=== PATIENT | male | born 1950 | race Caucasian/White ===

== ENCOUNTER 2024-05-15 19:16 | Emergency (ER) | payer MEDICARE, SELFPAY ==
[2024-05-15 19:21] VITALS: BP 118/81; PULSE 93; RESP 18; TEMP 35.8; O2SAT 97; BMI 26.6
--- NOTE | 2024-05-15 21:04 | ED_ITS ---
HPI - Wound/Laceration General Time Seen by Provider: 21:04 Date Seen: 05/15/24 Chief Complaint: Laceration/Wound Stated Complaint: Cut on Fri, still bleeding Time Seen by Provider: 05/15/24 19:23 Source: patient and RN notes reviewed Mode of arrival: ambulatory Limitations: no limitations History of Present Illness HPI narrative: This 73-year-old male is coming in accompanied by his daughter with concern of bleeding from a wound on his left hand. These injuries happened on Friday, still continue to bleed. Patient is anticoagulated with Coumadin. He is on a c hronic dobutamine pump as a last effort to keep his heart function in per his daughter. He resides with her, has in-house nursing almost daily. They are unsure of his last tetanus. He was worried that the wound in his left hand might be getting infected, they deny any fever. His daughter does not feel it is infected. It just continues to keep oozing. He came with bandages, due to the volume in the acuity in the ER, the bandages were still in place, he had not even remotely come close to bleeding through these at all. His daughter did use bacitracin on the wounds. He does bruise easily, we did review that with aging we lose college in and then with being on blood thinners, can make bruising even more susceptible. The event happened yesterday, fell in the bathroom. He hit a board and a board landed on his hand. Related Data Home Medications ?Medication ?Instructions ?Recorded ?Confirmed albuterol 90 mcg/actuation aerosol 1 - 2 mcg inhalation .every 4-6 05/11/24 05/11/24 inhaler hrs PRN ondansetron 4 mg disintegrating mg PO DAILY PRN 05/11/24 05/11/24 tablet Allergies Allergy/AdvReac Type Severity Reaction Status Date / Time codeine Allergy Severe dizzniness/ Verified 05/11/24 15:26 nausea Review of Systems Narrative: As per HPI. PFSH PFS Surgical History Status post appendectomy ?Z90.49 - Acquired absence of other specified parts of digestive tract (ICD- 10) Status post lumbar laminectomy ?Z98.890 - Other specified postprocedural states (ICD-10) Status post coronary artery stent placement ?Z95.5 - Presence of coronary angioplasty implant and graft (ICD-10) Family History Mother Breast cancer Father Colon cancer Social History Narrative: 2 children Retired Former smoker What is your current living situation?: I presently have a place to live Problems where you live: no known problems In the past 12 months, utilities in danger of being shut off: no In past 12 months, lack of transportation kept you from medical appts, meetings, work, or getting things needed for daily living: no In the past 12 mos, have been you worried that your food would run out before you had money to buy more?: never true In the past 12 mos, the food you bought just didn't last and you didn't have money to buy more?: never true How often does anyone, including family, friends and others, physically hurt you : never How often does anyone, including family, friends and others, insult or talk down to you: never How often does anyone, including family, friends and others, threaten you with harm: never How often does anyone, including family, friends and others, scream or curse at you: never Exam Const: Vital Signs, click to edit/add: Vital Signs - 24 hr 05/15/24 19:21 Temperature 96.5 F L Pulse Rate [Left P ulse Oximeter] 93 Respiratory Rate 18 Blood Pressure [Ri ght Upper Arm] 118/81 Pulse Oximetry 97 Oxygen Delivery Me thod Room Air Patient has a dobutamine pump going, looks to have a PICC line in his right upper arm. He is alert, interactive, no apparent stress. He had 3:00 a.m. type wrap overlying nonstick pads and bacitracin over the wounds. On his mid dorsal forearm, there is an area of bruising in few superficial places where he has completely lost the epidermis. The subcutaneous tissue is intact, there is no drainage, no swelling, no warmth. His left hand along the interdigital web space between the thumb and the 2nd finger on the dorsum has a flap with some dark blood that appears to be coagulated along the periphery of this wound. The wound is not warm but there is bruising around it. When I removed the bandages from both of these sites, there was just a little small amount of blood on both of on, there was no concerning level of bleeding. His skin is very thin, we reviewed that attempting to so the 1 in his hand would be problematic and likely to just ripped the skin and cause further bleeding. I would recommend Tegaderm and then some compression over both of these. He does have nursing staff coming in that can watch these wounds. Documenting provider has reviewed patient's vital signs: yes Course Course ED Course: Patient has no recent tetanus that our nursing staff could fine, patient opted to have this updated which we will order for him. I do not see any level of bleeding that I am concerned about, bandaging really is not showing any concerning amount of bleeding. He may lose from these wounds conceivably for days, even up to a week to 2 weeks. As long as they are not copiously or actively bleeding, believe using Tegaderm and some gentle bandaging over the top of that should be sufficient. Would not recommend attempting any suturing, the forearm actually has loss of the superficial skin and there is nothing to suture. The skin tear in his left hand is very likely to just be friable and is certainly well out of limits of recommendations for suturing due to a increased risk of infection. The wound itself does not appear to be infected and would favor ongoing observation, seek re-evaluation if there is concerns. Will have nursing staff put Tegaderm and than some light pressure dressings over these. Reevaluation(s) Time of Reevaluation #1: 21:36 Reevaluation #1: Patient is re-evaluated, has some gauze and 3:00 a.m. wrap overlying the Tegaderm. Daughter is aware that if changing bandages, to peel towards the direction of the flap so as to not lift the flap up. We discussed wound care, tetanus is updated. Will discharge them to home. Vital Signs Vital signs: Initial Vital Signs Temperature 96.5 F L 05/15/24 19:21 Temperature Source Temporal Artery Scan 05/15/24 19:21 Pulse Rate 93 05/15/24 19:21 Pulse Rhythm Regular 05/15/24 19:21 Respiratory Rate 18 05/15/24 19:21 Blood Pressure 118/81 05/15/24 19:21 Blood Pressure Mean 93 05/15/24 19:21 Blood Pressure Position Sitting 05/15/24 19:21 Pulse Oximetry 97 05/15/24 19:21 Oxygen Delivery Method Room Air 05/15/24 19:21 Vital Signs Temperature 96.5 F L 05/15/24 19:21 Pulse Rate 93 05/15/24 19:21 Respiratory Rate 18 05/15/24 19:21 Blood Pressure 118/81 05/15/24 19:21 Pulse Oximetry 97 05/15/24 19:21 Oxygen Delivery Method Room Air 05/15/24 19:21 Temperature 96.5 F L 05/15/24 19:21 Pulse Rate 93 05/15/24 19:21 Respiratory Rate 18 05/15/24 19:21 Blood Pressure 118/81 05/15/24 19:21 Pulse Oximetry 97 05/15/24 19:21 Oxygen Delivery Method Room Air 05/15/24 19:21 Discharge Plan Discharge Clinical Impression: Skin tear of left hand without complication, Avulsion of skin of left forearm Patient Disposition: Home, Self-Care Condition: Stable Instructions: Skin Avulsion (ED), Skin Tear (ED) Additional Instructions: Can take down the top layer of dressing but would recommend leaving the Tegaderm in place for up to 7 days if the wounds are looking okay underneath. Can be changed as needed before than but would be careful to not pull the Tegaderm off and disrupt the wounds causing bleeding again. Watch for infection, if there are concerns, please seek re-evaluation. Activity Level: No Restrictions Discharge Diet: Regular Prescriptions: No Action ondansetron 4 mg tablet,disintegrating PO DAILY PRN albuterol 90 mcg/actuation aerosol 1 - 2 mcg inhalation .every 4-6 hrs PRN Follow Up/Referrals: Provider,Not a Local [Non-Staff] - Stand Alone Forms: [facility] Info Instructions
--- OUTSIDE RECORDS SUMMARY | 2024-05-15 21:29 | XMS_ITS | Clinical Summary ---
Author Organization [facility] Address [address] [place] [id number] Care Team Providers Care Computer Numerical Control Programmer Name Role Phone Fausto Mead Ion Jones Unavailable Sadi Paul MD Primary Care Provider Allergies Active Allergy Reactions Criticality Noted Date Comments Codeine Nausea Only,Dizziness Low Medications CPAPIndications:TIARRA (obstructive sleep apnea),(HFpEF) heart failure with preserved ejection fraction (HC),Tobacco abuse CPAP for home use at pressure of 12. Heated humidifier x1, Humidifier chamber x1, Heated tubing x1, Full face mask with cushion x1, Headgear x1, Filters: Disposable x1 pack, Reusable x1pk, Length of Need: 99 months, Frequency of use: Daily Refills: 11. 1 unit 11 2018 Active meclizine (ANTIVERT) 25 mg tabletIndications:Sammy gn paroxysmal positional vertigo, unspecified laterality Take 1 Tablet (25 mg) by mouth 3 times daily if needed for Vertigo. 30 Tablet 1 2021 Active acetaminophen (TYLENOL EXTRA STRGTH) 500 mg tabletIndications:Pain Take 1,000 mg by mouth once daily in the evening. Max acetaminophen dose: 4000mg in 24 hrs. 0 2021 Active methocarbamoL (ROBAXIN) 500 mg tabletIndications:Naus ea and vomiting, unspecified vomiting type,DAVID (acute kidney injury) Take 1 Tablet (500 mg) by mouth every 6 hours if needed for Muscle Spasm PO 1st choice (.). 20 Tablet 2023 Active Additional Information Patient not taking.Informant: Patient's Recall, Reported on 05/03/2024 magnesium oxide 250 mg magnesium tabletIndications:Musc le cramps Take 1 Tablet (250 mg) by mouth once daily. 30 Tablet 11 2023 Active Additional Information Patient not taking.Informant: Patient's Recall, Reported on 05/03/2024 triamcinolone (ARISTOCORT; KENALOG) 0.1 % creamIndications:pruri tus of skin Apply 1 Application topically to affected area(s) 3 times daily if needed (itchy rash). Active DOBUTamine (DOBUTREX) 250 mg/250 mL (1 mg/mL) infusionIndications:Ac myriam on chronic systolic and diastolic heart failure, NYHA class 3 (HC) Inject 159 mcg/min intravenous continuous. 250 mL 2024 Active pantoprazole (PROTONIX) 40 mg delayed-release tabletIndications:Acut e GI bleeding Take 1 Tablet (40 mg) by mouth two times daily before meals. 90 Tablet 025 2:46 PM DATA WAREHOUSE MANAGER 2024 Active pramipexole (MIRAPEX) 0.25 mg tabletIndications:Rest less leg Take one-half Tablet (0.125 mg) by mouth at bedtime. 30 Tablet 025 2:46 PM DATA WAREHOUSE MANAGER 2024 Active sennosides (SENNA) 8.6 mg tabletIndications:Othe r constipation Take 1 to 2 Tablets (8.6-17.2 mg) by mouth two times daily. 60 Tablet 025 2:46 PM DATA WAREHOUSE MANAGER 2024 Active warfarin (COUMADIN) 1 mg tabletIndications:Atri al fibrillation with rapid ventricular response (HC) Take 1 Tablet (1 mg) by mouth once daily. Take 1mg daily. INR check on Sunday 04/23. Further dosing instructions pending INR value at that time. 30 Tablet 025 2:46 PM DATA WAREHOUSE MANAGER 2024 Active midodrine (PROAMATINE) 2.5 mg tabletIndications:Hypo tension, unspecified hypotension type Take 1 tablet (2.5mg) by mouth three times daily (at 8AM, 12PM, and 4PM) 90 Tablet 025 2:46 PM DATA WAREHOUSE MANAGER 2024 Active amiodarone (CORDARONE) 200 mg tabletIndications:Atri al fibrillation with rapid ventricular response (HC) Take 1 tablet (200 mg) by mouth twice daily. Then on 05/02/24 decrease to 200 mg once daily 90 Tablet 1 025 2:46 PM DATA WAREHOUSE MANAGER 2024 Active torsemide (DEMADEX) 20 mg tabletIndications:Acut e on chronic systolic and diastolic heart failure, NYHA class 3 (HC) Take one tablet by mouth as needed for weight gain of 3 lb in 1 day or 5 lb in 1 week 30 Tablet 2 025 5:30 PM DATA WAREHOUSE MANAGER 2024 Active atorvastatin (LIPITOR) 40 mg tabletIndications:Pure hypercholesterolemia Take 1 Tablet (40 mg) by mouth once daily. 30 Tablet 3 025 5:30 PM DATA WAREHOUSE MANAGER 2024 Active WalkerIndications:CHF (congestive heart failure), NYHA class IV, acute on chronic, combined (HC) Walker with wheels,seat,sanders d brakes,and basket for home use. 1 Each 2024 Active commodeIndications:CHF (congestive heart failure), NYHA class IV, acute on chronic, combined (HC) As directed. Commode. For home use. 1 Each 2024 Active albuterol HFA (PRO-AIR; VENTOLIN; PROVENTIL) 90 mcg/actuation inhalerIndications:Cou gh, unspecified type Inhale 2 Puffs by mouth every 6 hours if needed for Wheezing 1st choice (cough). 34 g 3 2024 Active ondansetron (ZOFRAN ODT) 4 mg disintegrating tabletIndications:Brinda perrin Place 1 Tablet (4 mg) on the tongue every 8 hours if needed for Nausea/Vomiting . 10 Tablet 2024 Active aspirin chewable 81 mg chewable tablet Chew 1 Tablet (81 mg) by mouth once daily with a meal. 04/21 Discontinued( *IP Discontinued) allopurinoL (ZYLOPRIM) 100 mg tabletIndications:E Tailer rika gout of foot, unspecified cause, unspecified laterality TAKE 2 TABLETS BY MOUTH ONCE DAILY 180 Tablet 3 04/21 Discontinued( *IP Discontinued) albuterol HFA (PRO-AIR; VENTOLIN; PROVENTIL) 90 mcg/actuation inhalerIndications:Tob acco abuse,Cough [The details of the medication are not available because there are pending changes by a home health clinician.] 34 g 3 04/26 Discontinued( Reorder (E-cancel not sent)) clopidogreL (PLAVIX) 75 mg tabletIndications:Daniele nary artery disease involving [place] coronary artery of [place] heart without angina pectoris TAKE 1 TABLET BY MOUTH ONCE DAILY 90 Tablet 3 04/21 Discontinued( *IP Discontinued) atorvastatin (LIPITOR) 40 mg tabletIndications:Pure hypercholesterolemia TAKE 1 TABLET BY MOUTH ONCE DAILY 90 Tablet 3 04/21 Discontinued metFORMIN (GLUCOPHAGE XR) 500 mg Extended-Release tabletIndications:Type 2 diabetes mellitus without complication, without long-term current use of insulin (HC) Take 2 Tablets (1,000 mg) by mouth once daily with a meal. 180 Tablet 1 04/21 Discontinued( *IP Discontinued) metoprolol succinate (TOPROL XL) 25 mg Sustained-Release tabletIndications:Acut e systolic heart failure (HC) Take 0.5 Tablets (12.5 mg) by mouth once daily. 45 Tablet 3 04/21 Discontinued( *IP Discontinued) potassium chloride (KLOR-CON M20) 20 mEq extended-release tablet (part/cryst)Indication s:Hypokalemia Take 1 Tablet (20 mEq) by mouth two times daily with meals. 180 Tablet 3 04/21 Discontinued( *IP Discontinued) torsemide (DEMADEX) 20 mg tabletIndications:Acut e on chronic systolic congestive heart failure (HC) Take 2 Tablets (40 mg) by mouth every 12 hours. Hold for now and resume on 01/18. 04/21 Discontinued( *IP Discontinued) metOLazone (ZAROXOLYN) 2.5 mg tabletIndications:Ga estive heart failure, unspecified HF chronicity, unspecified heart failure type (HC) Take 1 Tablet (2.5 mg) by mouth every Friday, Friday and Friday. Hold for now and resume on 01/18 Discontinued( *IP Discontinued) isosorbide mononitrate (IMDUR) 30 mg extended release tablet 24 HourIndications:Ischem ic cardiomyopathy Take 1 Tablet (30 mg) by mouth once daily. 90 Tablet 04/18 Discontinued amiodarone (CORDARONE) 200 mg tabletIndications:Atri al fibrillation with rapid ventricular response (HC) Take 1 Tablet (200 mg) by mouth three times daily. 05/02/2024: Reduce to 1 tablet (200 mg) by mouth once daily. 90 Tablet 2 04/21 Discontinued( *IP Discontinued) isosorbide mononitrate (IMDUR) 30 mg extended release tablet 24 HourIndications:Ischem ic cardiomyopathy TAKE 1 TABLET BY MOUTH ONCE DAILY 100 Tablet 04/21 Discontinued( *IP Discontinued) allopurinoL (ZYLOPRIM) 100 mg tabletIndications:Gout due to renal impairment, unspecified chronicity, unspecified site [The details of the medication are not available because there are pending changes by a home health clinician.] 60 Tablet 025 5:30 PM DATA WAREHOUSE MANAGER 04/26 Discontinued( *Allergic/Adv erse Rxn/Side Effects) amiodarone (CORDARONE) 200 mg tabletIndications:Atri al fibrillation with rapid ventricular response (HC) Take 1 Tablet (200 mg) by mouth two times daily for 10 days. 20 Tablet 04/21 Discontinued( *IP Discontinued) amiodarone (CORDARONE) 200 mg tabletIndications:Atri al fibrillation with rapid ventricular response (HC) Take 1 Tablet (200 mg) by mouth once daily. Start after completing your twice daily dose 30 Tablet 04/21 Discontinued( *IP Discontinued) atorvastatin (LIPITOR) 40 mg tabletIndications:Pure hypercholesterolemia Take 1 Tablet (40 mg) by mouth once daily. 30 Tablet 3 04/21 Discontinued ondansetron (ZOFRAN ODT) 4 mg disintegrating tabletIndications:Brinda perrin Place 1 Tablet (4 mg) on the tongue every 8 hours if needed for Nausea/Vomiting . 10 Tablet 04/27 Discontinued( Reorder (E-cancel not sent)) Hospital, Clinic, or Other Facility Administered Medication Ordered Dose Route Frequency Start Date End Date Status cyanocobalamin (VITAMIN B12) 1,000 mcg/mL injection 1,000 mcgIndications:B12 deficiency 1000 mcg IM Q 4 WEEKS (28 days) 12/22/2023 11/21/2024 Active Active Problems Problem Noted Date Diagnosed Date Congestive heart failure, un specified HF chronicity, unspecified heart failure type 04/21/2024 Acute renal failure superimp osed on stage 3b chronic kidney disease 04/07/2024 Atrial fibrillation with rapid ventricular respo nse 04/07/2024 Acute GI bleeding 04/07/2024 Lactic acidosis 04/07/2024 Cardiogenic shock 04/07/2024 Acute on chronic systolic an d diastolic heart failure, NYHA class 3 04/07/2024 Chronic heart failure with r educed ejection fraction (HFrEF, <= 40%) 01/16/2024 Chronic kidney disease, stage 3b 06/19/2023 Type 2 diabetes mellitus wit hout complication, without long-term current use of insulin 04/17/2023 AGE (acute gastroenteritis) 04/17/2023 Hypokalemia 04/17/2023 DAVID (acute kidney injury) 04/17/2023 Anesthesia complication 11/05/2022 Overview (11/05/2022): Needs higher doses of anesthesia and wakes up slowly sometimes with nausea Regional enteritis of large intestine 11/05/2022 Ischemic cardiomyopathy 11/05/2022 Colon cancer screening 09/09/2022 Hypoxia 03/01/2021 Influenza A 02/25/2021 Pulmonary emphysema 02/12/2021 Ischemic cardiomyopathy 12/07/2020 Pure hypercholesterolemia 12/07/2020 Acute systolic congestive heart failure 12/03/19 Acute systolic heart failure 11/25/2020 TIARRA (obstructive sleep apnea) 07/03/2017 Unspecified essential hypertension 05/26/2013 Other and unspecified hyperlipidemia 05/26/2013 Coronary atherosclerosis of [place] coronary arianne ry 05/26/2013 Other B-complex deficiencies 02/11/2013 Regional enteritis of large intestine 10/22/2011 Type II or unspecified type diabetes mellitus without mention of complication, uncontrolled 02/14/2011 Acute on chronic systolic heart failure Resolved Problems Problem Noted Date Diagnosed Date Resolved Date Cellulitis and abscess of unspecified site 03/13/2013 03/17/2017 Coronary atherosclerosis of unspecified type of vessel, [place] or graft 02/11/2013 03/17/2017 Chest pain, unspecified 01/19/201303/03 Acute bronchitis 06/01/2012 03/17/2017 Acute conjunctivitis, unspecified 05/01/2012 03/17/2017 Other and unspecified noninf ectious gastroenteritis and colitis(558.9) 08/28/201103/17 Leukocytosis, unspecified 02/14/2011 Blood in stool 02/14/2011 03/17/2017 Acute gastritis without mention of hemorrhage 02/12/2003/17/2017 Encounters Date Type Department Care Team Description 05/15/19 Travel 05/15/19 Home Care Visit [facility] [address] [place] [phone] Monisha Yo, PARIKH CARE COORDINATION 05/14/19 4:00 PM CDT Home Care Visit [facility] [address] [place] [phone] Joceline Edouard PHYSICIANS ASSISTANT - HOME VISIT 05/14/19 1:00 PM CDT Home Care Visit [facility] [address] [place] [phone] Valentina Riley, RN SN - LONG VISIT (>90 MINUTES) 05/14/19 Telephone [facility] [address] [place] [phone] Valentina Riley, stove installer 05/12/19 10:30 AM CDT Home Care Visit [facility] [address] [place] [phone] Nicolas Sanz, PT PT - HOME VISIT 05/12/19 25 Home Care Visit [facility] [address] [place] [phone] Edis Camargo, PROJECT ENGINEER CHEMICALS CARE COORDINATION 05/12/19 Travel 05/11/19 3:00 PM CDT Home Care Visit [facility] [address] [place] [phone] Joceline Edouard PHYSICIANS ASSISTANT - HOME VISIT 05/11/19 11:00 AM CDT Home Care Visit [facility] [address] [place] [phone] Valentina Riley, RN SN - HOME VISIT 05/10/19 Nurse Triage [facility] [address] [place] [phone] Shana Lozano, DO Home Care; Diarrhea 05/08/19 4:00 PM DATA WAREHOUSE MANAGER Home Care Visit [facility] [address] [place] [phone] Joceline Edouard PHYSICIANS ASSISTANT - HOME VISIT 05/08/19 10:30 AM DATA WAREHOUSE MANAGER Home Care Visit [facility] [address] [place] [phone] Nicolas Sanz, PT PT - HOME VISIT 05/07/19 1:30 PM DATA WAREHOUSE MANAGER Home Care Visit [facility] [address] [place] [phone] Valentina Riley, RN SN - LONG VISIT (>90 MINUTES) 05/07/19 Telephone [facility] [address] [phone] Valentina Riley, stove installer 05/05/19 1:30 PM DATA WAREHOUSE MANAGER Home Care Visit [facility] [address] [place] [phone] Tiffany Fang, OT OT - HOME VISIT 05/05/19 10:30 AM DATA WAREHOUSE MANAGER Home Care Visit [facility] [address] [place] [phone] Nicolas Sanz, PT PT - HOME VISIT 05/05/19 9:30 AM DATA WAREHOUSE MANAGER Home Care Visit [facility] [address] [place] [phone] Joceline Edouard PHYSICIANS ASSISTANT - HOME VISIT 05/05/19 Travel 05/04/19 1:00 PM DATA WAREHOUSE MANAGER Home Care Visit [facility] [address] [place] [phone] Valentina Riley, RN SN - LONG VISIT (>90 MINUTES) 05/04/19 8:30 AM DATA WAREHOUSE MANAGER Office Visit [facility] [address] [facility] [address] [place] [address] Lauro Kendall MD Follow Up (POST HOSPITAL FOLLOW UP. LABS DONE PRIOR AT HOME HEALTH CARE./PT states feeling OK/no cardiac symptoms today /Establish care ) 05/04/19 Travel 04/30/19 2:30 PM DATA WAREHOUSE MANAGER Home Care Visit [facility] [address] [place] [phone] Nicolas Sanz, PT PT - HOME VISIT 04/30/[address] [address] Shana Lozano, DO Weight (Weight gain) 04/30/19 Travel 04/29/19 12:30 PM DATA WAREHOUSE MANAGER Home Care Visit [facility] [address] [place] [phone] Valentina Riley, AMELIA SN - LONG VISIT (>90 MINUTES) 04/29/19 25 Home Care Visit [facility] [address] [place] [phone] Nicolas Sanz, PT CARE COORDINATION 04/28/19 3:00 PM DATA WAREHOUSE MANAGER Home Care Visit [facility] [address] [place] [phone] Nicolas Sanz, PT PT - INITIAL ASSESSMENT 04/28/19 9:00 AM DATA WAREHOUSE MANAGER Home Care Visit [facility] [address] [place] [phone] Anabella Rico, FILAMENT CUTTER FILAMENT CUTTER - HOME VISIT 02/26/20 25 Telephone [facility] [address] [place] [address] Shana Lozano, DO Questions (Verbal orders) 04/28/19 Travel 04/27/19 1:00 PM DATA WAREHOUSE MANAGER Home Care Visit [facility] [address] [place] [phone] Tiffany Fang OT OT - INITIAL ASSESSMENT 04/27/19 11:30 AM DATA WAREHOUSE MANAGER Anticoagulation (warfarin) [facility] [address] [place] [address] Anticoagulation 04/27/19 9:40 AM DATA WAREHOUSE MANAGER Office Visit [facility] [address] [place] [address] Shana Lozano, DO Hospital F/U (04/06/2024-04/21/2024 Afib with RVR) 04/27/19 Travel 04/26/19 Telephone [place] [address] [place] [address] Ignacio Willett MD Care Coordination (EP called and spoke with patient who reports that he moved in with his daughter which is 100 [address] from [facility]. EP confirmed with patient that he would be discharged from CR at [facility]. Pt confirmed he would check out places near for CR as needed. ) 04/26/19 Orders Only [facility] [address] [place] [address] Shana Lozano DO <No scans attached> 04/26/19 Orders Only [facility] [address] [place] [address] Shana Lozano DO <No scans attached> 04/25/19 1:00 PM DATA WAREHOUSE MANAGER Home Care Visit [facility] [address] [place] [phone] Staci Lara RN SN - HOME VISIT 04/23/19 1:45 PM DATA WAREHOUSE MANAGER Home Care Visit [facility] [address] [place] [phone] Joceline Edouard PHYSICIANS ASSISTANT - HOME VISIT 04/23/19 25 1:00 PM DATA WAREHOUSE MANAGER Home Care Visit [facility] [address] [place] [phone] Valentina Riley, AMELIA SN - LONG VISIT (>90 MINUTES) 04/23/19 25 9:00 AM DATA WAREHOUSE MANAGER Anticoagulation (warfarin) [facility] [address] [place] [address] Anticoagulation 04/23/19 25 Orders Only [facility] [address] [place] [address] Shana Lozano, Lab 04/23/19 25 Orders Only [facility] [address] [place] [phone] Shana Lozano DO Lab (Home care) 04/23/19 25 Orders Only [facility] [address] [facility] [address] [place] [phone] Abi Valdovinos, RUNNER OUT <No scans attached> 04/23/19 25 Travel 04/22/19 25 1:00 PM DATA WAREHOUSE MANAGER Home Care Visit [facility] [address] [place] [phone] Valentina Riley RN SN IV - START OF CARE 04/22/19 25 Plan of Care Documentation [facility] [address] [place] [phone] 04/22/19 25 Telephone [facility] [address] [place] [phone] Valentina Riley RN Home Care 04/22/19 25 Telephone [facility] [address] [place], [place] [phone] Shana Lozano, Outside Order (WALKER / PORTABLE URINAL ) 04/22/19 25 Home Care Visit [facility] [address] [place] [phone] Valentina Riley, AMELIA CARE COORDINATION 04/22/19 25 Telephone [facility] [address] [place] [address] Ignacio Willett MD Care Coordination (EP attempted phone contact with patient to touch base regarding cardiac rehab plan. No answer and VM is full. EP to follow-up as needed. ) 04/21/19 25 Telephone [facility] [address] [place] [address] Shana Lozano, DO Anticoagulation 04/19/19 25 Telephone [facility] [address] [place] [address] Shana Lozano, DO Questions (Home care orders ) 04/17/19 25 Refill [facility] [address] [place] [address] Ignacio Willett MD Refill Request (Isosorbide Mononitrate) 04/12/19 25 10:26 AM DATA WAREHOUSE MANAGER Anesthesia Event [facility] [address] [place] [address] Gerardo Garza MD Schlatter, Charles Patrick, [employer] P[employer] 04/08/19 25 12:21 PM DATA WAREHOUSE MANAGER Anesthesia Event [facility] [address] [place] [address] Leonardo Campbell MD Reiter, Kyle, [employer] 04/08/19 25 11:26 AM DATA WAREHOUSE MANAGER - 04/08/19 25 12:12 PM DATA WAREHOUSE MANAGER Surgery [facility] [address] [place] [address] Chepe Francis MD ESOPHAGOGASTRODUODENOSCOPY WITH GASTRIC BIOPSY 04/06/19 25 11:21 PM DATA WAREHOUSE MANAGER - 04/21/19 25 5:55 PM DATA WAREHOUSE MANAGER Hospital Encounter [facility] [address] [place] [address] Associates, [facility] General [facility], [facility] Parmjit Berrios MD Mrkvicka, MD Ruel Garcia, MD Dmitriy Salinas, Rebecca Romero MD Acute on chronic systolic and diastolic heart failure, NYHA class 3 (HC) (Primary Dx); Cardiogenic shock (HC); Atrial fibrillation with rapid ventricular response (HC); Cardiovascular symptoms; Chronic heart failure with reduced ejection fraction (HFrEF, <= 40%) (HC); Gout due to renal impairment, unspecified chronicity, unspecified site; Acute systolic congestive heart failure (HC); Acute GI bleeding; Restless leg; Other constipation; Hypotension, unspecified hypotension type; Pure hypercholesterolemia Discharge Disposition: Home Health 04/06/19 2:41 PM DATA WAREHOUSE MANAGER - 04/06/19 10:17 PM DATA WAREHOUSE MANAGER Emergency [address] [address] Charly Monroe MD Binder, Jacob A, MD Atrial fibrillation, unspecified type (HC) (Primary Dx); Hypotension, unspecified hypotension type; Lightheadedness; DAVID (acute kidney injury) Discharge Disposition: Short Term/PPS Hosp 04/06/19 1:56 PM DATA WAREHOUSE MANAGER - 04/06/19 2:40 PM DATA WAREHOUSE MANAGER Hospital Encounter [address] [address] Ignacio Willett MD 04/06/19 Telephone [facility] [address] [place] [address] Lukasz Bright MD 04/06/19 25 Travel 04/05/19 Telephone [facility] [address] [place] [address] Ignacio Willett MD Atrial Fibrillation 03/30/19 25 1:47 PM DATA WAREHOUSE MANAGER - 03/30/19 25 11:59 PM DATA WAREHOUSE MANAGER Hospital Encounter [address] [address] Ignacio Willett MD 03/30/19 25 Travel 03/24/19 25 1:00 PM DATA WAREHOUSE MANAGER - 03/24/19 25 11:59 PM DATA WAREHOUSE MANAGER Hospital Encounter [address] [address] Ignacio Willett MD 03/24/19 25 Travel 03/22/19 25 1:00 PM DATA WAREHOUSE MANAGER - 03/22/19 25 11:59 PM DATA WAREHOUSE MANAGER Hospital Encounter [address] [address] Ignacio Willett MD 03/22/19 25 Travel 03/15/19 25 12:50 PM DATA WAREHOUSE MANAGER - 03/15/19 25 11:59 PM DATA WAREHOUSE MANAGER Hospital Encounter [address] [address] Ignacio Willett MD 03/15/19 25 Travel 03/10/19 25 12:50 PM DATA WAREHOUSE MANAGER - 03/10/19 25 11:59 PM DATA WAREHOUSE MANAGER Hospital Encounter [address] [address] Ignacio Willett MD 03/10/19 25 Travel 03/08/19 25 1:00 PM DATA WAREHOUSE MANAGER - 03/08/19 25 11:59 PM DATA WAREHOUSE MANAGER Hospital Encounter [address] [address] Ignacio Willett MD 03/08/19 25 Travel 03/01/20 24 1:29 PM DATA WAREHOUSE MANAGER - 03/01/20 24 11:59 PM DATA WAREHOUSE MANAGER Hospital Encounter [address] [address] Ignacio Willett MD Ischemic cardiomyopathy; CAD, multiple vessel; Dyslipidemia; Congestive heart failure, unspecified HF chronicity, unspecified heart failure type (HC) 03/01/20 24 Orders Only [address] [address] Ignacio Willett MD <No scans attached> from Last 3 Months Immunizations Immunization Administration Dates Next Due COVID-19 VACCINE COMIRNATY (PFIZER-BIONTECH 30MCG/0.3ML) 12YO+ PFS 12/18/2023 COVID-19 VACCINE SPIKEVAX (M ODERNA 50MCG/0.5ML) 12YO+ PFS 01/27/2023 COVID-19 vaccine (Moderna 100mcg/0.5mL) PF, MDV 06/21/2020,05/24/2020 COVID-19 vaccine (Moderna 50mcg/0.5mL) 12YO+ BIVALENT PF, MDV 03/21/2022 COVID-19 vaccine (Moderna Brian sonu 50mcg/0.25mL) PF, MDV 06/06/2021,01/17/2021 Influenza RIV4 (Age 18+ Year s) PRESERV FREE 11/19/2021,12/06/2019 Influenza Virus, Unspecified 11/10/2017,11/02/19 13 Influenza, High-dose Inactivated 11/20/2023,01/02 Influenza, High-dose Quadriv alent Inactivated 12/24/2022 Influenza, IIV4 12/03/2018, 8,12/07/2015,2014,12/28/2013 Influenza, IIV4 (=>6mos) MDV 12/01/2018 Influenza, Inactivated AIIV4 (Age 65+ Years) Preserv Free 11/27/2020 Pneumococcal Poly,23-Valent (Pneumovax) 02/09/2018,02/04/2013 Pneumococcal conj 13-Valent (Prevnar 13) 08/05/2014 Zoster (Shingrix-RZV, recombinant) 04/09/2019, Zoster (Zostavax-ZVL, live) 05/01/2012 Family History Medical History Relation Name Comments Cancer-prostate Father Cancer-prostate Paternal Grandfather Relation Name Status Comments Father Mother Paternal Grandfather Social History Tobacco Use Types Packs/Day Years Used Date Smoking Tobacco: Some Days Cigarettes 1 40 Started: 07/26/1980; Last attempted to quit: 07/26/2020 Smokeless Tobacco: Never Tobacco Cessation:Ready to Q uit: Not Asked; Counseling Given: Not Answered Comments:2-3 cigsper day and then some days nothing Alcohol Use Standard Drinks/Week Comments Yes 0 (1 standard drink = 0.6 oz pur e alcohol) once a months 1drink PHQ-2 Answer Date Recorded PHQ-2 TOTAL SCORE 0 01/01/2022 Social Connections Answer Date Recorded Do you often feel lonely or isolated from those around you? 0 04/09/2024 Financial Resource Strain Answer Date R ecorded Difficulty of Paying Living Expenses 3 04/17/2023 Difficulty of Paying Living Expenses Not on file 04/17/2023 Food Insecurity Answer Date Recorded Do you worry your food will run out before you are able to buy more? 1 04/09/2024 Transportation Needs Answer Date Record ed Does lack of transportation keep you from medica l appointments? 1 04/09/2024 Does lack of transportation keep you from work, meetings or getting things that you need? 1 04/09/2024 Housing Stability Answer Date Recorded What is your housing situation today? 1 04/09/2024 Interpersonal Safety Answer Date Record ed Are you being hit, kicked, p ushed or yelled at (see row info)? No 04/09/2024 Interpersonal Safety Abuse 12 - 18 Not on file 04/09/2024 Interpersonal Safety Ambulatory Vulnerability No t on file 04/09/2024 Utilities Answer Date Recorded Do you have trouble paying f or utilities (for example, heat, electricity, water, phone)? 1 04/09/2024 Sex and Gender Information Value Date Recorded Sex Assigned at Not on file Legal Sex Male 5:26 PM DATA WAREHOUSE MANAGER Gender Identity Not on file Sexual Orientation Not on file Obstetrics History Last Filed Vital Signs Vital Sign Reading Time Taken Comments Blood Pressure 112/79 05/13/2024 12:46 PM CDT Pulse 65 05/13/2024 12:46 PM CDT Temperature 36.6 C (97.8 F) 05/13/2024 12:46 PM CDT Respiratory Rate 18 05/13/2024 12:46 PM CDT Oxygen Saturation 97% 05/13/2024 12:46 PM CDT Inhaled Oxygen Concentration - - Weight 76.7 kg (169 lb 3.2 oz) 05/13/2024 12:46 PM CDT Height 175.3 cm (5' 9) 05/03/2024 8:40 AM DATA WAREHOUSE MANAGER Body Mass Index 24.99 05/03/2024 8:40 AM DATA WAREHOUSE MANAGER Plan of Treatment Upcoming Encounters Date Type Department Care Team (Late st Contact Info) Description 05/17/2024 3:15 PM CDT Home Care Visit [facility] [address] [place] [phone] Joceline Edouard 05/18/2024 10:00 AM CDT Home Care Visit [facility] [address] [place] [phone] Edis Camargo, PROJECT ENGINEER [employer] [address] [place] [address] 05/18/2024 11:00 AM CDT Home Care Visit [facility] [address] [place] [phone] Valentina Riley, AMELIA 05/18/2024 4:00 PM CDT Home Care Visit [facility] [address] [place] [phone] FunmiMonisha porter Emy, PARIKH [address] [place] [address] 05/19/2024 10:30 AM CDT Home Care Visit [facility] [address] [place] [phone] Nicolas Sanz, PT [address] [place] [address] 05/20/2024 2:45 PM CDT Home Care Visit [facility] [address] [place] [phone] Joceline Edouard 05/21/2024 11:30 AM CDT Home Care Visit [facility] [address] [place] [phone] Valentina Riley RN 05/21/2024 1:15 PM CDT Home Care Visit [facility] [address] [place] [phone] Nicolas Sanz, PT [address] [place] [address] 05/24/2024 4:00 AM CDT Home Care Visit [facility] [address] [place] [phone] Valentina Riley, AMELIA 05/24/2024 2:30 PM CDT Home Care Visit [facility] [address] [place] [phone] Joceline Edouard 05/25/2024 5:00 AM CDT Home Care Visit [facility] [address] [place] [phone] AnnalisaAnselmo hernandezcurt, OT [address] [place] [address] 05/26/2024 3:00 AM CDT Home Care Visit [facility] [address] [place] [phone] Nicolas Sanz, PT [address] [place] [address] 05/27/2024 4:00 AM CDT Home Care Visit [address] [phone] Joceline Edouard 05/28/2024 4:00 AM CDT Home Care Visit [address] [phone] Valentina iRley, AMELIA 05/31/2024 4:00 AM CDT Home Care Visit [address] [phone] Valentina Riley, AMELIA 06/01/2024 4:00 AM CDT Home Care Visit [address] [phone] Jax Edouardin L 06/03/2024 4:00 AM CDT Home Care Visit [address] [phone] Jax Edouardin L 06/03/2024 8:35 AM CD[place] [address] [place] [address] 06/04/2024 4:00 AM CDT Home Care Visit [address] [phone] Valentina Riley, RN 06/07/2024 4:00 AM CDT Home Care Visit [facility] [address] [place] [phone] Valentina Riley, AMELIA 06/08/2024 4:00 AM CDT Home Care Visit [facility] [address] [place] [address] Jax Edouardin L 06/08/2024 8:30 AM CDT Office Visit [facility] [address] [facility] [address] [place] [address] Lauro Kendall MD [address] [facility] [address] [place] [address] 06/10/2024 4:00 AM CDT Home Care Visit [facility] [address] [place] [phone] Jax Edouardin L 06/11/2024 4:00 AM CDT Home Care Visit [facility] [address] [place] [phone] Valentina Riley, AMELIA 06/14/2024 1:00 PM CDT Home Care Visit [facility] [address] [place] [phone] Valentina Riley, RN 06/15/2024 4:00 AM CDT Home Care Visit [facility] [address] [place] [phone] Jax Edouardin L 06/16/2024 1:00 PM CDT Home Care Visit [facility] [address] [place] [phone] Valentina Riley, RN 06/17/2024 4:00 AM CDT Home Care Visit [facility] [address] [place] [phone] Silke, Krin L 06/18/2024 1:00 PM CDT Appointment [facility] [address] [place] [address] [place] [phone] Valentina Riley, RN Health Maintenance Due Date Last Done Comments Tdap 11/06/1962 Tetanus booster 1971 RSV vaccine for adults or (1 - Risk 60-74 years 1-dose series) 2011 Medicare Wellness for age 65+ 11/06/2016 Depression screening for age 12+ 01/03/2023 01/03/2022, 01/01/2022, 11/21/2021, Additional history exists COVID-19 vaccine series ( season) 2024 12/18/2023, 01/27/2023, 03/21/2022, Additional history exists Low Dose CT (for lung CA) ag e 50-80 08/06/2024 08/07/2023, 06/16/2022 BMI (ht and wt on same day) for age 18+ 05/03/2025 05/03/2024, 04/27/2024, 12/30/2023, Additional history exists Lipids for age 45-75 11/19/2028 11/20/2023, 12/25/2022, 11/19/2021, Additional history exists Colonoscopy through age 75 09/10/2032 09/10/2022, Pneumococcal series for age 50+ Completed 02/09/2018, 08/05/2014, 02/04/2013, Additional history exists Zoster (shingles) series for age 50+ Completed 04/09/2019, 01/11/2019, 05/01/2012 Hepatitis C screening for ag e 18-79 Completed 06/11/2022 Influenza Vaccine Completed 11/20/2023, , 11/27/2020, Additional history exists AAA screening age 65-74 Completed 01/16/20 24, 12/20/2021, 10/11/2020 Procedures Procedure Name Priority Date/Time Associated Diagnosis Comments PROTIME-INR Routine 04/27/2024 10:26 AM DATA WAREHOUSE MANAGER Ischemic cardiomyopathy PRO-BNP Routine 04/27/2024 10:26 AM DATA WAREHOUSE MANAGER Acute systolic heart failure (HC) BASIC METABOLIC PANEL Routine 04/27/2024 10:26 AM DATA WAREHOUSE MANAGER Acute systolic heart failure (HC) PROTIME-INR Routine 04/23/2024 1:40 PM DATA WAREHOUSE MANAGER Atrial fibrillation with rapid ventricular response (HC) BASIC METABOLIC PANEL Early AM 04/21/2024 6:15 AM DATA WAREHOUSE MANAGER HEPATIC FUNCTION PANEL Early AM 6:15 AM DATA WAREHOUSE MANAGER PROTIME-INR Early AM 04/21/2024 6:15 AM DATA WAREHOUSE MANAGER SCAN-CARDIAC STRIP 04/20/2024 11:03 PM DATA WAREHOUSE MANAGER SCAN-CARDIAC STRIP 04/20/2024 7:32 PM DATA WAREHOUSE MANAGER CBC W PLT NO DIFF Early AM 04/20/2024 7:04 AM DATA WAREHOUSE MANAGER MAGNESIUM Early AM 04/20/2024 7:04 AM DATA WAREHOUSE MANAGER BASIC METABOLIC PANEL Early AM 04/20/2024 7:04 AM DATA WAREHOUSE MANAGER HEPATIC FUNCTION PANEL Early AM 7:04 AM DATA WAREHOUSE MANAGER PROTIME-INR Early AM 04/20/2024 7:04 AM DATA WAREHOUSE MANAGER O2 SATURATION,MEASURED Early AM 6:22 AM DATA WAREHOUSE MANAGER SCAN-CARDIAC STRIP 04/19/2024 7:23 PM DATA WAREHOUSE MANAGER SCAN-CARDIAC STRIP 04/19/2024 1:45 PM DATA WAREHOUSE MANAGER MAGNESIUM Early AM 04/19/2024 6:57 AM DATA WAREHOUSE MANAGER BASIC METABOLIC PANEL Early AM 04/19/2024 6:57 AM DATA WAREHOUSE MANAGER HEMOGLOBIN Early AM 04/19/2024 6:57 AM DATA WAREHOUSE MANAGER HEPATIC FUNCTION PANEL Early AM 6:57 AM DATA WAREHOUSE MANAGER PROTIME-INR Early AM 04/19/2024 6:57 AM DATA WAREHOUSE MANAGER O2 SATURATION,MEASURED Early AM 6:11 AM DATA WAREHOUSE MANAGER SCAN-CARDIAC STRIP 04/18/2024 10:04 PM DATA WAREHOUSE MANAGER SCAN-CARDIAC STRIP 04/18/2024 5:43 PM DATA WAREHOUSE MANAGER MAGNESIUM Timed 04/18/2024 4:33 PM DATA WAREHOUSE MANAGER POTASSIUM Timed 04/18/2024 12:45 PM DATA WAREHOUSE MANAGER O2 SATURATION,MEASURED Early AM 8:11 AM DATA WAREHOUSE MANAGER SCAN-CARDIAC STRIP 04/18/2024 7:46 AM DATA WAREHOUSE MANAGER MAGNESIUM Early AM 04/18/2024 7:07 AM DATA WAREHOUSE MANAGER BASIC METABOLIC PANEL Early AM 04/18/2024 7:07 AM DATA WAREHOUSE MANAGER HEPATIC FUNCTION PANEL Early AM 7:07 AM DATA WAREHOUSE MANAGER PROTIME-INR Early AM 04/18/2024 7:07 AM DATA WAREHOUSE MANAGER SCAN-CARDIAC STRIP 04/17/2024 11:49 PM DATA WAREHOUSE MANAGER SCAN-CARDIAC STRIP 04/17/2024 9:12 PM DATA WAREHOUSE MANAGER SCAN-CARDIAC STRIP 04/17/2024 7:41 AM DATA WAREHOUSE MANAGER MAGNESIUM RUSH 04/17/2024 7:26 AM DATA WAREHOUSE MANAGER BASIC METABOLIC PANEL Early AM 04/17/2024 7:26 AM DATA WAREHOUSE MANAGER HEPATIC FUNCTION PANEL Early AM 7:26 AM DATA WAREHOUSE MANAGER PROTIME-INR Early AM 04/17/2024 7:26 AM DATA WAREHOUSE MANAGER O2 SATURATION,MEASURED Early AM 6:35 AM DATA WAREHOUSE MANAGER SCAN-CARDIAC STRIP 04/16/2024 11:25 PM DATA WAREHOUSE MANAGER POTASSIUM Timed 04/16/2024 5:20 PM DATA WAREHOUSE MANAGER O2 SATURATION,MEASURED Timed 3:06 PM DATA WAREHOUSE MANAGER ALK PHOSPHATASE Today 04/16/2024 10:19 AM DATA WAREHOUSE MANAGER BILIRUBIN DIRECT Today 04/16/2024 10:19 AM DATA WAREHOUSE MANAGER ALT (SGPT) Today 04/16/2024 10:19 AM DATA WAREHOUSE MANAGER AST (SGOT) Today 04/16/2024 10:19 AM DATA WAREHOUSE MANAGER POTASSIUM Early AM 04/16/2024 10:19 AM DATA WAREHOUSE MANAGER SCAN-CARDIAC STRIP 04/16/2024 8:23 AM DATA WAREHOUSE MANAGER HEMOGLOBIN Early AM 04/16/2024 8:09 AM DATA WAREHOUSE MANAGER HEPATIC FUNCTION PANEL Early AM 8:09 AM DATA WAREHOUSE MANAGER CREATININE Early AM 04/16/2024 8:09 AM DATA WAREHOUSE MANAGER SODIUM Early AM 04/16/2024 8:09 AM DATA WAREHOUSE MANAGER MAGNESIUM Early AM 04/16/2024 8:09 AM DATA WAREHOUSE MANAGER O2 SATURATION,MEASURED Early AM 6:31 AM DATA WAREHOUSE MANAGER SCAN-CARDIAC STRIP 04/16/2024 1:03 AM DATA WAREHOUSE MANAGER SCAN-CARDIAC STRIP 04/15/2024 8:37 PM DATA WAREHOUSE MANAGER O2 SATURATION,MEASURED Today 6:58 PM DATA WAREHOUSE MANAGER POTASSIUM Timed 04/15/2024 5:26 PM DATA WAREHOUSE MANAGER EKG 12 LEAD RUSH 04/15/2024 12:31 PM DATA WAREHOUSE MANAGER PROTIME-INR Early AM 04/15/2024 11:55 AM DATA WAREHOUSE MANAGER POTASSIUM Timed 04/15/2024 11:55 AM DATA WAREHOUSE MANAGER O2 SATURATION,MEASURED RUSH 8:07 AM DATA WAREHOUSE MANAGER GLUCOSE METER Timed 04/15/2024 7:49 AM DATA WAREHOUSE MANAGER SCAN-CARDIAC STRIP 04/15/2024 7:26 AM DATA WAREHOUSE MANAGER HEMOGLOBIN Early AM 04/15/2024 6:38 AM DATA WAREHOUSE MANAGER BASIC METABOLIC PANEL Early AM 04/15/2024 6:38 AM DATA WAREHOUSE MANAGER MAGNESIUM Early AM 04/15/2024 6:38 AM DATA WAREHOUSE MANAGER HEPATIC FUNCTION PANEL Early AM 6:38 AM DATA WAREHOUSE MANAGER SCAN-CARDIAC STRIP 04/15/2024 3:06 AM DATA WAREHOUSE MANAGER SCAN-CARDIAC STRIP 04/14/2024 9:43 PM DATA WAREHOUSE MANAGER GLUCOSE METER Timed 04/14/2024 9:05 PM DATA WAREHOUSE MANAGER GLUCOSE METER Timed 04/14/2024 4:15 PM DATA WAREHOUSE MANAGER SCAN-CARDIAC STRIP 04/14/2024 3:27 PM DATA WAREHOUSE MANAGER ICD ANALYSIS DUAL WITHOUT REPROGRAM Routine 04/14/2024 3:13 PM DATA WAREHOUSE MANAGER EKG 12 LEAD RUSH 04/14/2024 1:25 PM DATA WAREHOUSE MANAGER GLUCOSE METER Timed 04/14/2024 12:04 PM DATA WAREHOUSE MANAGER POTASSIUM Timed 04/14/2024 11:49 AM DATA WAREHOUSE MANAGER GLUCOSE METER Timed 04/14/2024 7:53 AM DATA WAREHOUSE MANAGER SCAN-CARDIAC STRIP 04/14/2024 7:21 AM DATA WAREHOUSE MANAGER URINALYSIS MICROSCOPIC Timed 6:29 AM DATA WAREHOUSE MANAGER BASIC METABOLIC PANEL Early AM 04/14/2024 6:29 AM DATA WAREHOUSE MANAGER MAGNESIUM Early AM 04/14/2024 6:29 AM DATA WAREHOUSE MANAGER HEPATIC FUNCTION PANEL Early AM 6:29 AM DATA WAREHOUSE MANAGER O2 SATURATION,MEASURED Timed 6:29 AM DATA WAREHOUSE MANAGER UA W/ SEDIMENT EXAM REFLEXED PER CRITERIA Today 04/14/2024 6:29 AM DATA WAREHOUSE MANAGER GLUCOSE METER Timed 04/13/2024 9:23 PM DATA WAREHOUSE MANAGER SCAN-CARDIAC STRIP 04/13/2024 8:03 PM DATA WAREHOUSE MANAGER PICC LINE Routine 04/13/2024 7:28 PM DATA WAREHOUSE MANAGER INSERT PICC LINE Routine 04/13/2024 7:20 PM DATA WAREHOUSE MANAGER GLUCOSE METER Timed 04/13/2024 5:07 PM DATA WAREHOUSE MANAGER SCAN-CARDIAC STRIP 04/13/2024 3:12 PM DATA WAREHOUSE MANAGER ICD ANALYSIS DUAL WITHOUT REPROGRAM Routine 04/13/2024 1:57 PM DATA WAREHOUSE MANAGER EKG 12 LEAD Today 04/13/2024 8:25 AM DATA WAREHOUSE MANAGER GLUCOSE METER Timed 04/13/2024 7:41 AM DATA WAREHOUSE MANAGER SCAN-CARDIAC STRIP 04/13/2024 7:35 AM DATA WAREHOUSE MANAGER HEPATIC FUNCTION PANEL Early AM 6:43 AM DATA WAREHOUSE MANAGER HEMOGLOBIN Early AM 04/13/2024 6:43 AM DATA WAREHOUSE MANAGER BASIC METABOLIC PANEL Early AM 04/13/2024 6:43 AM DATA WAREHOUSE MANAGER GLUCOSE METER Timed 04/12/2024 9:16 PM DATA WAREHOUSE MANAGER GLUCOSE METER Timed 04/12/2024 6:39 PM DATA WAREHOUSE MANAGER COMPREHENSIVE BLOOD GAS MIXE D VENOUS Timed 04/12/2024 4:48 PM DATA WAREHOUSE MANAGER CVL OTHER PROCEDURE Routine 04/12/2024 4:09 PM DATA WAREHOUSE MANAGER Cardiovascular symptoms SCAN-CARDIAC STRIP 04/12/2024 3:27 PM DATA WAREHOUSE MANAGER US RENAL AND BLADDER COMPLETE Routine 2:51 PM DATA WAREHOUSE MANAGER GLUCOSE METER Timed 04/12/2024 11:55 AM DATA WAREHOUSE MANAGER ECHO NOEL WO CONTRAST W COLOR W LTD DOPPLER Routine 04/12/2024 10:52 AM DATA WAREHOUSE MANAGER EKG 12 LEAD Post Op 04/12/2024 10:49 AM DATA WAREHOUSE MANAGER EP OTHER PROCEDURE Routine 04/12/2024 10:48 AM DATA WAREHOUSE MANAGER GLUCOSE METER Timed 04/12/2024 7:30 AM DATA WAREHOUSE MANAGER HEPATIC FUNCTION PANEL RUSH 6:31 AM DATA WAREHOUSE MANAGER BASIC METABOLIC PANEL Early AM 04/12/2024 6:31 AM DATA WAREHOUSE MANAGER MAGNESIUM Early AM 04/12/2024 6:31 AM DATA WAREHOUSE MANAGER SCAN-CARDIAC STRIP 04/12/2024 3:46 AM DATA WAREHOUSE MANAGER SCAN-OPERATIVE/PROCEDURE REPORT 04/12/2024 12:00 AM DATA WAREHOUSE MANAGER GLUCOSE METER Timed 04/11/2024 9:47 PM DATA WAREHOUSE MANAGER SCAN-CARDIAC STRIP 04/11/2024 8:21 PM DATA WAREHOUSE MANAGER GLUCOSE METER Timed 04/11/2024 5:24 PM DATA WAREHOUSE MANAGER SCAN-CARDIAC STRIP 04/11/2024 4:18 PM DATA WAREHOUSE MANAGER GLUCOSE METER Timed 04/11/2024 11:31 AM DATA WAREHOUSE MANAGER HEMOGLOBIN Today 04/11/2024 10:12 AM DATA WAREHOUSE MANAGER MAGNESIUM RUSH 04/11/2024 10:12 AM DATA WAREHOUSE MANAGER BASIC METABOLIC PANEL Early AM 04/11/2024 10:12 AM DATA WAREHOUSE MANAGER SCAN-CARDIAC STRIP 04/11/2024 7:48 AM DATA WAREHOUSE MANAGER GLUCOSE METER Timed 04/11/2024 7:44 AM DATA WAREHOUSE MANAGER GLUCOSE METER Timed 04/10/2024 9:22 PM DATA WAREHOUSE MANAGER POTASSIUM Timed 04/10/2024 6:20 PM DATA WAREHOUSE MANAGER GLUCOSE METER Timed 04/10/2024 5:09 PM DATA WAREHOUSE MANAGER SCAN-CARDIAC STRIP 04/10/2024 4:04 PM DATA WAREHOUSE MANAGER POTASSIUM Timed 04/10/2024 1:24 PM DATA WAREHOUSE MANAGER GLUCOSE METER Timed 04/10/2024 12:37 PM DATA WAREHOUSE MANAGER SCAN-CARDIAC STRIP 04/10/2024 10:29 AM DATA WAREHOUSE MANAGER GLUCOSE METER Timed 04/10/2024 8:26 AM DATA WAREHOUSE MANAGER MAGNESIUM RUSH 04/10/2024 8:09 AM DATA WAREHOUSE MANAGER BASIC METABOLIC PANEL Early AM 04/10/2024 8:09 AM DATA WAREHOUSE MANAGER SCAN-CARDIAC STRIP 04/10/2024 5:01 AM DATA WAREHOUSE MANAGER GLUCOSE METER Timed 04/09/2024 9:07 PM DATA WAREHOUSE MANAGER POTASSIUM Timed 04/09/2024 7:56 PM DATA WAREHOUSE MANAGER SCAN-CARDIAC STRIP 04/09/2024 7:40 PM DATA WAREHOUSE MANAGER GLUCOSE METER Timed 04/09/2024 5:26 PM DATA WAREHOUSE MANAGER SCAN-CARDIAC STRIP 04/09/2024 3:40 PM DATA WAREHOUSE MANAGER GLUCOSE METER Timed 04/09/2024 8:14 AM DATA WAREHOUSE MANAGER BASIC METABOLIC PANEL Early AM 04/09/2024 8:10 AM DATA WAREHOUSE MANAGER GLUCOSE METER Timed 04/08/2024 9:15 PM DATA WAREHOUSE MANAGER GLUCOSE METER Timed 04/08/2024 4:52 PM DATA WAREHOUSE MANAGER POTASSIUM Timed 04/08/2024 2:45 PM DATA WAREHOUSE MANAGER GLUCOSE METER Timed 04/08/2024 1:00 PM DATA WAREHOUSE MANAGER PATH TISSUE EXAM Today 04/08/2024 12:39 PM DATA WAREHOUSE MANAGER ESOPHAGOGASTRODUODENOSCOPY W ITH BIOPSY 04/08/2024 12:13 PM DATA WAREHOUSE MANAGER melena GLUCOSE METER Timed 04/08/2024 11:09 AM DATA WAREHOUSE MANAGER ENDOSCOPY 04/08/2024 9:49 AM DATA WAREHOUSE MANAGER GLUCOSE METER Timed 04/08/2024 8:00 AM DATA WAREHOUSE MANAGER EXTRA TUBE BLUE Today 04/08/2024 6:45 AM DATA WAREHOUSE MANAGER EXTRA TUBE LAVENDER Today 04/08/2024 6:45 AM DATA WAREHOUSE MANAGER PRO-BNP Early AM 04/08/2024 6:45 AM DATA WAREHOUSE MANAGER BASIC METABOLIC PANEL Early AM 04/08/2024 6:45 AM DATA WAREHOUSE MANAGER SCAN-CARDIAC STRIP 04/07/2024 11:52 PM DATA WAREHOUSE MANAGER GLUCOSE METER Timed 04/07/2024 10:19 PM DATA WAREHOUSE MANAGER GLUCOSE METER Timed 04/07/2024 7:15 PM DATA WAREHOUSE MANAGER HEMOGLOBIN Timed 04/07/2024 6:10 PM DATA WAREHOUSE MANAGER DIGOXIN Timed 04/07/2024 1:50 PM DATA WAREHOUSE MANAGER HEMOGLOBIN Timed 04/07/2024 1:50 PM DATA WAREHOUSE MANAGER GLUCOSE METER Timed 04/07/2024 12:33 PM DATA WAREHOUSE MANAGER EKG 12 LEAD Routine 04/07/2024 10:01 AM DATA WAREHOUSE MANAGER URINALYSIS MICROSCOPIC Timed 9:48 AM DATA WAREHOUSE MANAGER UA W/ SEDIMENT EXAM REFLEXED PER CRITERIA Today 04/07/2024 9:48 AM DATA WAREHOUSE MANAGER COVID/FLU/RSV PANEL Today 04/07/2024 9:48 AM DATA WAREHOUSE MANAGER ICD ANALYSIS DUAL WITHOUT REPROGRAM Routine 04/07/2024 9:05 AM DATA WAREHOUSE MANAGER ECHO TTE LIMITED W CONTRAST W COLOR W DOPPLER Routine 04/07/2024 8:53 AM DATA WAREHOUSE MANAGER GLUCOSE METER Timed 04/07/2024 7:43 AM DATA WAREHOUSE MANAGER EXTRA TUBE BLUE Today 04/07/2024 6:23 AM DATA WAREHOUSE MANAGER LACTATE VENOUS Timed 04/07/2024 6:20 AM DATA WAREHOUSE MANAGER HEMOGLOBIN Timed 04/07/2024 6:20 AM DATA WAREHOUSE MANAGER MAGNESIUM Early AM 04/07/2024 6:20 AM DATA WAREHOUSE MANAGER SODIUM Early AM 04/07/2024 6:20 AM DATA WAREHOUSE MANAGER POTASSIUM Early AM 04/07/2024 6:20 AM DATA WAREHOUSE MANAGER CREATININE Early AM 04/07/2024 6:20 AM DATA WAREHOUSE MANAGER SCAN-CARDIAC STRIP 04/07/2024 5:29 AM DATA WAREHOUSE MANAGER SCAN-CARDIAC STRIP 04/07/2024 3:14 AM DATA WAREHOUSE MANAGER LACTATE VENOUS Timed 04/07/2024 2:58 AM DATA WAREHOUSE MANAGER GLUCOSE METER Timed 04/07/2024 1:49 AM DATA WAREHOUSE MANAGER TYPE & SCREEN Today 04/07/2024 12:39 AM DATA WAREHOUSE MANAGER FERRITIN RUSH 04/07/2024 12:39 AM DATA WAREHOUSE MANAGER IRON PLUS IRON BINDING CAP RUSH 04/07 12:39 AM DATA WAREHOUSE MANAGER RETICULOCYTES RUSH 04/07/2024 12:39 AM DATA WAREHOUSE MANAGER LACTATE VENOUS Today 04/07/2024 12:39 AM DATA WAREHOUSE MANAGER COMP METABOLIC PANEL STAT 04/07/2024 12:39 AM DATA WAREHOUSE MANAGER CBC W PLT NO DIFF STAT 04/07/2024 12:39 AM DATA WAREHOUSE MANAGER XR CHEST 1 VIEW PORTABLE STAT 025 8:19 PM DATA WAREHOUSE MANAGER TROPONIN I STAT 04/06/2024 7:53 PM DATA WAREHOUSE MANAGER BASIC METABOLIC PANEL STAT 04/06/2024 7:53 PM DATA WAREHOUSE MANAGER EXTRA TUBE LAVENDER Today 04/06/2024 3:55 PM DATA WAREHOUSE MANAGER HEPATIC FUNCTION PANEL STAT 3:55 PM DATA WAREHOUSE MANAGER BEDSIDE US STUDY ARCHIVE Routine 025 3:07 PM DATA WAREHOUSE MANAGER HEPARIN LEVEL STAT 04/06/2024 2:45 PM DATA WAREHOUSE MANAGER APTT STAT 04/06/2024 2:45 PM DATA WAREHOUSE MANAGER PROTIME-INR STAT 04/06/2024 2:45 PM DATA WAREHOUSE MANAGER EXTRA TUBE GOLD/SST Today 04/06/2024 2:45 PM DATA WAREHOUSE MANAGER EXTRA TUBE BLUE Today 04/06/2024 2:45 PM DATA WAREHOUSE MANAGER SLIDE REVIEW STAT 04/06/2024 2:45 PM DATA WAREHOUSE MANAGER BRAIN NATRIURETIC PEPTIDE STAT 2024 2:45 PM DATA WAREHOUSE MANAGER CBC WITH AUTO DIFFERENTIAL STAT 04/06 2:45 PM DATA WAREHOUSE MANAGER TROPONIN I STAT 04/06/2024 2:45 PM DATA WAREHOUSE MANAGER TSH WITH REFLEX STAT 04/06/2024 2:45 PM DATA WAREHOUSE MANAGER MAGNESIUM STAT 04/06/2024 2:45 PM DATA WAREHOUSE MANAGER BASIC METABOLIC PANEL STAT 04/06/2024 2:45 PM DATA WAREHOUSE MANAGER CBC WITH AUTO DIFFERENTIAL STAT 04/06 2:45 PM DATA WAREHOUSE MANAGER EKG 12 LEAD STAT 04/06/2024 2:35 PM DATA WAREHOUSE MANAGER SCAN-CARDIAC STRIP 04/06/2024 12:00 AM DATA WAREHOUSE MANAGER SCAN-CARDIAC STRIP 04/06/2024 12:00 AM DATA WAREHOUSE MANAGER SCAN-CARDIAC STRIP 03/22/2024 12:00 AM DATA WAREHOUSE MANAGER SCAN-CARDIAC STRIP 03/15/2024 12:00 AM DATA WAREHOUSE MANAGER SCAN-CARDIAC STRIP 03/08/2024 12:00 AM DATA WAREHOUSE MANAGER SCAN-CARDIAC STRIP 03/01/2024 12:00 AM DATA WAREHOUSE MANAGER SCAN-CARDIAC STRIP 03/01/2024 12:00 AM DATA WAREHOUSE MANAGER SCAN-CARDIAC STRIP 03/01/2024 12:00 AM DATA WAREHOUSE MANAGER SCAN-CARDIAC STRIP 03/01/2024 12:00 [address] DATA WAREHOUSE [address] CT ABDOMEN PELVIS WO STAT 01/16/2024 4:53 AM DATA WAREHOUSE MANAGER LIPID PANEL W REFLEX MEASURE D LDL Routine 11/20/2023 1:57 PM CDT Mixed hyperlipidemia CT CHEST SCREENING LOW DOSE WO CONTRAST Routine 08/07/2023 10:24 AM CDT Stopped smoking with greater than 40 pack year history ANTI HCV Routine 06/11/2022 2:16 PM CDT Need for hepatitis C screening test COLONOSCOPY Routine 08/14/2011 from Last 3 Months or Most Recently Relevant to Health Maintenance Results * (ABNORMAL) PROTIME-INR (04/27/2024 10:26 AM DATA WAREHOUSE MANAGER) Only the most recent of9 resultswithin the time period is included. INR 2.4(H) 0.8 - 1.1 04/27/2024 11:18 AM DATA WAREHOUSE MANAGER [facility] Blood BLOOD SPECIMEN / Unknown Venipuncture / Unknown 04/27/2024 10:26 AM DATA WAREHOUSE MANAGER 04/27/2024 10:38 AM DATA WAREHOUSE MANAGER Shana Lozano DO HEMATOLOGY Final Result Performing Organization Address [facility]/State/[facility] Co de Phone Number [place] [address] [place] [address], * (ABNORMAL) PRO-BNP (04/27/2024 10:26 AM DATA WAREHOUSE MANAGER) Only the most recent of2 resultswithin the time period is included. PRO-BNP 11,954(H) <125 pg/mL 04/27/2024 4:02 PM [facility] Blood BLOOD SPECIMEN / Unknown Venipuncture / Unknown 04/27/2024 10:26 AM DATA WAREHOUSE MANAGER 04/27/2024 10:[address] [facility] - 04/27/2024 4:02 PM DATA WAREHOUSE MANAGER The following cut-points have been suggested for the use of proBNP for the diagnostic evaluation of heart failure (HF) in patient with acute dyspnea. Patients with eGFR >= 60 Diagnosis (rule in CHF) <50 Years Old 450 pg/mL 50 - 75 Years Old 900 pg/mL >75 Years Old 1800 pg/mL Exclusion (rule out CHF) Age Independent 300 pg/mL A cutoff of 1200 pg/mL for patients with an eGFR <60 yields a diagnostic sensitivity of 89% and specificity of 72% for acute congestive heart failure. us Abi Valdovinos [facility] SEND OUTS Final Resu lt [facility] [address] [address], * (ABNORMAL) BASIC METABOLIC PANEL (04/27/2024 10:26 AM DATA WAREHOUSE MANAGER) Only the most recent of16 resultswithin the time period is included. SODIUM 135(L) 136 - 145 mmol/L 04/27/2024 11:34 AM [facility] POTASSIUM 4.3 3.5 - 5.1 mmol/L 04/27/2024 11:34 AM [facility] CHLORIDE 105 98 - 107 mmol/L 04/27/2024 11:34 AM [facility] CO2,TOTAL 17(L) 22 - 31 mmol/L 04/27/2024 11:34 AM [facility] ANION GAP 13 5 - 18 04/27/2024 11:34 AM [facility] GLUCOSE 110(H) 70 - 99 mg/dL 04/27/2024 11:34 AM [facility] CALCIUM 9.0 8.4 - 10.2 mg/dL 04/27/2024 11:34 AM [facility] BUN 25 8 - 25 mg/dL 04/27/2024 11:34 AM [facility] CREATININE 2.10(H) 0.72 - 1.25 mg/dL 04/27/2024 11:34 AM [facility] BUN/CREAT RATIO 12 10 - 20 11:34 AM [facility] eGFR 33(L) >90 mL/min/1.7 3m2 04/27/2024 11:34 AM [facility] Comment:As of 2021, eG FR is calculated by the CKD-EPI creatinine equation without race adjustment. eGFR can be influenced by muscle mass, exercise, and diet. The reported eGFR is an estimation only and is only applicable if the renal function is stable. Blood BLOOD SPECIMEN / Unknown Venipuncture / Unknown 04/27/2024 10:26 AM DATA WAREHOUSE MANAGER 04/27/2024 10:38 AM DATA WAREHOUSE MANAGER us Abi Valdovinos [facility] CHEMISTRY Final Resu lt [facility] [address] [place] [address], [place] [phone] * (ABNORMAL) Hepatic function panel AM (04/21/2024 6:15 AM DATA WAREHOUSE MANAGER) Only the most recent of11 resultswithin the time period is included. ALBUMIN 3.5(L) 4.0 - 4.9 g/dL 04/21/2024 6:57 AM [facility] PROTEIN,TOTAL 5.9(L) 6.0 - 8.0 g/dL 04/21/2024 6:57 AM [facility] BILIRUBIN,TOTAL 1.0 0.0 - 1.2 mg/dL 04/21/2024 6:57 AM [facility] BILIRUBIN,DIRECT 0.5(H) 0.0 - 0.2 mg/dL 04/21/2024 6:57 AM DATA WAREHOUSE MANAGER [facility] BILIRUBIN,INDIRE CT 0.5 0.2 - 0.8 mg/dL 04/21/2024 6:57 AM [facility] ALK PHOSPHATASE 158(H) 40 - 129 IU/L 04/21/2024 6:57 AM DATA WAREHOUSE MANAGER [facility] ALT (SGPT) 48 10 - 50 IU/L 04/21/2024 6:57 AM [facility] AST (SGOT) 18 10 - 50 IU/L 04/21/2024 6:57 AM [facility] Blood BLOOD SPECIMEN / Unknown Venipuncture / Unknown 04/21/2024 6:15 AM DATA WAREHOUSE MANAGER 04/21/2024 6:29 AM DATA WAREHOUSE MANAGER us Lauro Kendall MD CHEMISTRY Final Res ult [facility] [address] [place] [address], [place] * SCAN-CARDIAC STRIP (04/20/2024 11:03 PM DATA WAREHOUSE MANAGER) us Scanner OTHER Final Result * SCAN-CARDIAC STRIP (04/20/2024 7:32 PM DATA WAREHOUSE MANAGER) us Scanner OTHER Final Result * (ABNORMAL) CBC (04/20/2024 7:04 AM DATA WAREHOUSE MANAGER) Only the most recent of2 resultswithin the time period is included. WHITE BLOOD COUNT 8.1 4.5 - 11.0 thou/cu mm 04/20/2024 7:31 AM DATA WAREHOUSE MANAGER [facility] RED BLOOD COUNT 3.32(L) 4.30 - 5.90 mil/cu mm 04/20/2024 7:31 AM DATA WAREHOUSE MANAGER [facility] HEMOGLOBIN 9.6(L) 13.5 - 17.5 g/dL 04/20/2024 7:31 AM DATA WAREHOUSE MANAGER [facility] HEMATOCRIT 30.3(L) 37.0 - 53.0 % 04/20/2024 7:31 AM DATA WAREHOUSE MANAGER [facility] MCV 91 80 - 100 fL 04/20/2024 7:31 AM DATA WAREHOUSE MANAGER [facility] MCH 28.9 26.0 - 34.0 pg 04/20/2024 7:31 AM DATA WAREHOUSE MANAGER [facility] MCHC 31.7(L) 32.0 - 36.0 g/dL 04/20/2024 7:31 AM [facility] RDW 18.9(H) 11.5 - 15.5 % 04/20/2024 7:31 AM DATA WAREHOUSE MANAGER [facility] PLATELET COUNT 229 140 - 440 thou/cu mm 04/20/2024 7:31 AM DATA WAREHOUSE MANAGER [facility] MPV 10.9 6.5 - 11.0 fL 04/20/2024 7:31 AM DATA WAREHOUSE MANAGER [facility] NRBC 0.2 % 04/20/2024 7:31 AM DATA WAREHOUSE MANAGER [facility] ABS NRBC 0.0 thou /cu mm 04/20/2024 7:31 AM [facility] Blood BLOOD SPECIMEN / Unknown Venipuncture / Unknown 04/20/2024 7:04 AM DATA WAREHOUSE MANAGER 04/20/2024 7:20 AM DATA WAREHOUSE MANAGER Madonna Hedrick REFRIGERATOR ROOM CLERK HEMATOLOGY Final Res ult Performing Organization Address City/[facility]/ZIP Co de Phone Number [facility] [address] [place] [address], [place] * (ABNORMAL) Magnesium AM (04/20/2024 7:04 AM DATA WAREHOUSE MANAGER) Only the most recent of13 resultswithin the time period is included. MAGNESIUM 2.5(H) 1.6 - 2.4 mg/dL 04/20/2024 7:50 AM DATA WAREHOUSE MANAGER [facility] Blood BLOOD SPECIMEN / Unknown Venipuncture / Unknown 04/20/2024 7:04 AM DATA WAREHOUSE MANAGER 04/20/2024 7:20 AM DATA WAREHOUSE MANAGER Madonna Hedrick REFRIGERATOR ROOM CLERK CHEMISTRY Final Res ult Performing Organization Address City/[facility]/ZIP Co de Phone Number [facility] [address] [place] [address], [place] * (ABNORMAL) O2 SATURATION,MEASURED (04/20/2024 6:22 AM DATA WAREHOUSE MANAGER) Only the most recent of9 resultswithin the time period is included. O2 SATURATION,MANISH SURED 55 % 04/20/2024 6:38 AM [facility] HEMOGLOBIN,BLO OD GAS 10.0(L) 13.5 - 17.5 g/dL 04/20/2024 6:38 AM DATA WAREHOUSE MANAGER [facility] SOURCE, O2M Venous 04/20/2024 6:38 AM DATA WAREHOUSE MANAGER [facility] Blood BLOOD SPECIMEN / Unknown Non-Lab Venipuncture / Unknown 04/20/2024 6:22 AM DATA WAREHOUSE MANAGER 04/20/2024 6:34 AM DATA WAREHOUSE MANAGER Narrative [facility] - 04/20/2024 6:38 AM DATA WAREHOUSE MANAGER Reference Range for: Arterial Source (94-98) Non-Arterial Source (70-75) us Marylou Currie NP CHEMISTRY Final R esult Performing Organization Address City/[facility]/ZIP Co de Phone Number [facility] [address] [address], [place] * SCAN-CARDIAC STRIP (04/19/2024 7:23 PM DATA WAREHOUSE MANAGER) us Scanner OTHER Final Result * SCAN-CARDIAC STRIP (04/19/2024 1:45 PM DATA WAREHOUSE MANAGER) us Scanner OTHER Final Result * (ABNORMAL) Hemoglobin AM (04/19/2024 6:57 AM DATA WAREHOUSE MANAGER) Only the most recent of8 resultswithin the time period is included. HEMOGLOBIN 10.3(L) 13.5 - 17.5 g/dL 04/19/2024 8:14 AM DATA WAREHOUSE MANAGER [facility] MCV 93 80 - 100 fL 04/19/2024 8:14 AM DATA WAREHOUSE MANAGER [facility] Blood BLOOD SPECIMEN / Unknown Non-Lab Venipuncture / Unknown 04/19/2024 6:57 AM DATA WAREHOUSE MANAGER 04/19/2024 8:09 AM DATA WAREHOUSE MANAGER us Deborah Lipscomb MD HEMATOLOGY Final R esult Performing Organization Address City/[facility]/ZIP Co de Phone Number [facility] [address] [address], [place] * SCAN-CARDIAC STRIP (04/18/2024 10:04 PM DATA WAREHOUSE MANAGER) us Scanner OTHER Final Result * SCAN-CARDIAC STRIP (04/18/2024 5:43 PM DATA WAREHOUSE MANAGER) us Scanner OTHER Final Result * POTASSIUM (04/18/2024 12:45 PM DATA WAREHOUSE MANAGER) Only the most recent of11 resultswithin the time period is included. POTASSIUM 3.9 3.5 - 5.1 mmol/L 04/18/2024 1:14 PM DATA WAREHOUSE MANAGER [facility] Blood BLOOD SPECIMEN / Unknown Venipuncture / Unknown 04/18/2024 12:45 PM DATA WAREHOUSE MANAGER 04/18/2024 12:51 PM DATA WAREHOUSE MANAGER us Deborah Lipscomb MD CHEMISTRY Final R esult [facility] [address] [place] [address], [place] * SCAN-CARDIAC STRIP (04/18/2024 7:46 AM DATA WAREHOUSE MANAGER) us Scanner OTHER Final Result * SCAN-CARDIAC STRIP (04/17/2024 11:49 PM DATA WAREHOUSE MANAGER) us Scanner OTHER Final Result * SCAN-CARDIAC STRIP (04/17/2024 9:12 PM DATA WAREHOUSE MANAGER) us Scanner OTHER Final Result * SCAN-CARDIAC STRIP (04/17/2024 7:41 AM DATA WAREHOUSE MANAGER) us Scanner OTHER Final Result * SCAN-CARDIAC STRIP (04/16/2024 11:25 PM DATA WAREHOUSE MANAGER) us Scanner OTHER Final Result * (ABNORMAL) ALT (SGPT) (04/16/2024 10:19 AM DATA WAREHOUSE MANAGER) ALT (SGPT) 201(H) 10 - 50 IU/L 04/16/2024 11:00 AM DATA WAREHOUSE MANAGER [facility] Blood BLOOD SPECIMEN / Unknown Butterfly / Unknown 04/16/2024 10:19 AM DATA WAREHOUSE MANAGER 04/16/2024 10:30 AM DATA WAREHOUSE MANAGER Deborah Lipscomb MD CHEMISTRY Final R esult Performing Organization Address City/[facility]/ZIP Co de Phone Number [facility] [address] [address], [place] * (ABNORMAL) AST (SGOT) (04/16/2024 10:19 AM DATA WAREHOUSE MANAGER) AST (SGOT) 58(H) 10 - 50 IU/L 04/16/2024 11:00 AM DATA WAREHOUSE MANAGER [facility] Blood BLOOD SPECIMEN / Unknown Butterfly / Unknown 04/16/2024 10:19 AM DATA WAREHOUSE MANAGER 04/16/2024 10:30 AM DATA WAREHOUSE MANAGER Deborah Lipscomb MD CHEMISTRY Final R esult Performing Organization Address [facility] Co de Phone Number [facility] [address] [address], [place] * (ABNORMAL) ALK PHOSPHATASE (04/16/2024 10:19 AM DATA WAREHOUSE MANAGER) ALK PHOSPHATASE 157(H) 40 - 129 IU/L 04/16/2024 11:00 AM DATA WAREHOUSE MANAGER [facility] Blood BLOOD SPECIMEN / Unknown Butterfly / Unknown 04/16/2024 10:19 AM DATA WAREHOUSE MANAGER 04/16/2024 10:30 AM DATA WAREHOUSE MANAGER Deborah Lipscomb MD CHEMISTRY Final R esult Performing Organization Address City/[facility]/ZIP Co de Phone Number [facility] [address] [address], [place] * (ABNORMAL) BILIRUBIN DIRECT (04/16/2024 10:19 AM DATA WAREHOUSE MANAGER) BILIRUBIN,DIRE CT 0.6(H) 0.0 - 0.2 mg/dL 04/16/2024 11:00 AM DATA WAREHOUSE MANAGER [facility] Blood BLOOD SPECIMEN / Unknown Butterfly / Unknown 04/16/2024 10:19 AM DATA WAREHOUSE MANAGER 04/16/2024 10:30 AM DATA WAREHOUSE MANAGER Deborah Lipscomb MD CHEMISTRY [facility] Performing Organization Address [facility] Phone Number [facility] [address] [place] [address], * SCAN-CARDIAC STRIP (04/16/2024 8:23 AM DATA WAREHOUSE MANAGER) us Scanner OTHER Final Result * (ABNORMAL) SODIUM (04/16/2024 8:09 AM DATA WAREHOUSE MANAGER) Only the most recent of2 resultswithin the time period is included. SODIUM 134(L) 136 - 145 mmol/L 04/16/2024 9:45 AM DATA WAREHOUSE MANAGER [facility] Blood BLOOD SPECIMEN / Unknown Non-Lab Venipuncture / Unknown 04/16/2024 8:09 AM DATA WAREHOUSE MANAGER 04/16/2024 9:06 AM DATA WAREHOUSE MANAGER Deborah Lipscomb MD CHEMISTRY Final R [facility] Performing Organization Address [facility] Phone Number [facility] [address] [place] [address], * (ABNORMAL) CREATININE (04/16/2024 8:09 AM DATA WAREHOUSE MANAGER) Only the most recent of2 resultswithin the time period is included. eGFR 37(L) >90 mL/min/1.7 3m2 04/16/2024 9:45 AM DATA WAREHOUSE MANAGER [email or web address] Comment:As of 2021, eG FR is calculated by the CKD-EPI creatinine equation without race adjustment. eGFR can be influenced by muscle mass, exercise, and diet. The reported eGFR is an estimation only and is only applicable if the renal function is stable. CREATININE 1.91(H) 0.70 - 1.20 mg/dL 04/16/2024 9:45 AM DATA WAREHOUSE MANAGER [facility] Blood BLOOD SPECIMEN / Unknown Non-Lab Venipuncture / Unknown 04/16/2024 8:09 AM DATA WAREHOUSE MANAGER 04/16/2024 9:06 AM DATA WAREHOUSE MANAGER us Deborah Lipscomb MD CHEMISTRY Final R esult Performing Organization Address City/[facility]/ZIP Co de Phone Number [facility] [address] [place] [address], [place] * SCAN-CARDIAC STRIP (04/16/2024 1:03 AM DATA WAREHOUSE MANAGER) us Scanner OTHER Final Result * SCAN-CARDIAC STRIP (04/15/2024 8:37 PM DATA WAREHOUSE MANAGER) us Scanner OTHER Final Result * EKG 12 LEAD (04/15/2024 12:31 PM DATA WAREHOUSE MANAGER) Only the most recent of6 resultswithin the time period is included. Interpretation Sinus rhythm with Premature supraventricular complexes and occasionol atrial pacemaker Left axis deviation Non-specific intra-ventricular conduction block Nonspecific T wave abnormality Abnormal ECG When compared with ECG of 14-Apr-2024 13:25, (Unconfirmed) Atrial Pacing now present BEYOND NOW Ventricular Rate 75 BPM BEYOND NOW Atrial Rate 75 BPM BEYOND NOW P-R Interval 188 ms BEYOND NOW QRS Duration 130 ms BEYOND NOW QT 402 ms BEYOND NOW QTc 448 ms BEYOND NOW P Gratis 53 degrees BEYOND NOW R Gratis -60 degrees BEYOND NOW T Gratis 118 degrees BEYOND NOW 04/15/2024 12:3 1 PM DATA WAREHOUSE MANAGER 04/16/2024 1:25 AM DATA WAREHOUSE MANAGER us Jossie Prado REFRIGERATOR ROOM CLERK EKG ORD Final Result Performing Organization Address [facility] Co de Phone Number BEYOND NOW [place], [place] * (ABNORMAL) GLUCOSE METER (04/15/2024 7:49 AM DATA WAREHOUSE MANAGER) Only the most recent of33 resultswithin the time period is included. GLUCOSE METER 134(H) 65 - 100 mg/dL 04/15/2024 7:54 AM DATA WAREHOUSE MANAGER [facility] Blood BLOOD SPECIMEN / Unknown 04/15/2024 7:49 AM DATA WAREHOUSE MANAGER 04/15/2024 7:54 AM DATA WAREHOUSE MANAGER us Deborah Lipscomb MD CHEMISTRY Final R esult [facility] [address] [place] [address], [place] * SCAN-CARDIAC STRIP (04/15/2024 7:26 AM DATA WAREHOUSE MANAGER) us Scanner OTHER Final Result * SCAN-CARDIAC STRIP (04/15/2024 3:06 AM DATA WAREHOUSE MANAGER) us Scanner OTHER Final Result * SCAN-CARDIAC STRIP (04/14/2024 9:43 PM DATA WAREHOUSE MANAGER) us Scanner OTHER Final Result * SCAN-CARDIAC STRIP (04/14/2024 3:27 PM DATA WAREHOUSE MANAGER) us Scanner OTHER Final Result * ICD ANALYSIS DUAL WITHOUT REPROGRAM (04/14/2024 3:13 PM DATA WAREHOUSE MANAGER) Narrative Vasyl Kim MD - 04/14/2024 3:13 PM DATA WAREHOUSE MANAGER Marino Strickland RN 04/14/2024 3:17 PM ICD EVALUATION REPORT 04/14/2024 Summary: Normal pacemaker function. Lead trends stable. 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 No VT detections. AP 20.9%, QUALITY CHECKER 0.2%. Battery estimating 11.2 years remaining. Indication for ICD: Primary Prevention of Sudden Cardiac Primary MD: Shana Lozano DO Primary Surveying Crew Stake Runner: [facility] Implanting MD: Bert Quiros- [facility] DEVICE DATA Prospecting Driller Helper Medtronic: Model [place] XT [id number] Implant Date 04/09/2023 LEAD DATA Atrial Lead: Prospecting Driller Helper Medtronic: Model 5076-52 cm Implant Date 04/09/23 RV Lead: Prospecting Driller Helper Medtronic: Model 6935M-62 cm Implant Date 04/09/23 Advisory: 07/2022 Presence of a glassed feedthrough creates increased risk of unexpected HV arching within the header during therapy delivery. No impact on pacing, sensing, detection, ATP delivery, HV charging, battery, or telemetry, and this will only occur during shock delivery. Monitor for reduced or no-energy shock delivery, a defib impedance of 0-<20 ohms and persistent 50% drop in all pacing impedances. Program all HV pathways B>AX. Routine monitoring once reprogramming completed. Tachy therapy hx: none Location of evaluation: [facility] [id number] Reason for evaluation: MD request MEASUREMENTS Atrial Sensing - P wave: 3.8 mV Atrial Capture: 0.75 V @ 0.4 ms auto Atrial Lead Impedance: 342 ohms Ventricular Sensing - R wave: 14.5 mV RV Capture: 0.5 V @ 0.4 ms Ventricular Pacing Lead Impedance: Right - 532 ohms Ventricular Shock Impedance: 91 ohms Underlying rhythm:sinus rhythm at 74 bpm with intact AV conduction DIAGNOSTIC DATA - since 04/13/24 Atrial paced - 20.9%, Ventricular paced -0.2% Atrial episodes (AF web alerts ON for >6 hours and v rates > 100 bpm for > 6 hours) ): none since cardioversion on 04/12/24 Associated symptoms:na Ventricular episodes: none Associated symptoms: na Histogram in sinus rhythm: Battery voltage: 3.02 V Estimated battery longevity: 11.2 years Last capacitor reform: 02/21/24 Charge time: 3.8 seconds FINAL VENTRICULAR TACHYCARDIA PARAMETERS Rate (bpm): 167 - 200 Therapy: monitor only NID: 32 Rate (bpm): 200 - 250 Therapy: iATP 8, 40 j X 5 NID: 30/40 Rate (bpm): > - 250 Therapy: iATP 4, 40 j X 5 NID: 30/40 FINAL BRADYCARDIA PACEMAKER PARAMETERS Mode: AAIR <=> DDDR Lower rate: 60 bpm Upper rate: 130/130 bpm AV Delay: 180/150 ms Mode Switch: 150 bpm Rate Response: low 3/3 Atrial - Amplitude: adaptive 1.5 V Pulse width: 0.4 ms Sensitivity: 0.3 mV Refractory: auto ms Polarity: bipolar Right Ventricular - Amplitude: adaptive 2.0 V Pulse width: 0.45 ms Sensitivity: 0.9 mV Polarity: bipolar Changes made: Device temporarily reprogrammed, iterative adjustments made during interrogation/testing.No permanent changes made. Follow up: follows with [facility] device clinic Marino Strickland RN Nurse Clinician II [facility] Pacemaker/ICD [phone] Vasyl Kim MD CARDIAC SERVICES ORD Final Result * SCAN-CARDIAC STRIP (04/14/2024 7:21 AM DATA WAREHOUSE MANAGER) Scanner OTHER Final Result * URINALYSIS MICROSCOPIC (04/14/2024 6:29 AM DATA WAREHOUSE MANAGER) Only the most recent of2 resultswithin the time period is included. RBC 0-2 0-2, None Seen /HPF 04/14/2024 7:26 AM DATA WAREHOUSE MANAGER [facility] WBC 3-5 0-2, 3-5, None Seen /HPF 04/14/2024 7:26 AM DATA WAREHOUSE MANAGER [facility] BACTERIA None Seen None Seen, Rare, Few Bacteria/ HPF 04/14/2024 7:26 AM DATA WAREHOUSE MANAGER [facility] EPITHELIAL CELLS None Seen None Seen, Few Epi/HPF 04/14/2024 7:26 AM DATA WAREHOUSE MANAGER [facility] HYALINE CASTS 0-2 0-2, 3-5 /LPF 04/14/2024 7:26 AM DATA WAREHOUSE MANAGER [facility] Urine URINE SPECIMEN / Unknown Non-Blood / Unknown 04/14/2024 6:29 AM DATA WAREHOUSE MANAGER 04/14/2024 6:36 AM DATA WAREHOUSE MANAGER Santy Crowley MD URINE Final Re sult [facility] [address] [place] [address], * (ABNORMAL) UA W/ SEDIMENT EXAM REFLEXED PER CRITERIA (04/14/2024 6:29 AM DATA WAREHOUSE MANAGER) Only the most recent of2 resultswithin the time period is included. COLOR Yellow Yellow Color 04/14/2024 7:26 AM DATA WAREHOUSE MANAGER [facility] CLARITY Clear Clear Clarity 04/14/2024 7:26 AM DATA WAREHOUSE MANAGER [facility] SPECIFIC GRAVITY,URINE 1.015 1.010, 1.015, 1.020, 1.025 04/14/2024 7:26 AM [facility] PH,URINE 5.5 6.0, 7.0, 8.0, 5.5, 6.5, 7.5, 8.5 04/14/2024 7:26 AM [facility] UROBILINOGEN, QUALITATIVE Normal Normal EU/dl 04/14/2024 7:26 AM [facility] PROTEIN, URINE Negative Negative mg/dL 04/14/2024 7:26 AM [facility] GLUCOSE, URINE Negative Negative mg/dL 04/14/2024 7:26 AM [facility] KETONES,URINE Negative Negative mg/dL 04/14/2024 7:26 AM [facility] BILIRUBIN,URI NE Negative Negative 04/14/2024 7:26 AM [facility] OCCULT BLOOD,URINE Negative Negative 04/14/2024 7:26 AM [facility] NITRITE Negative Negative 04/14/2024 7:26 AM [facility] LEUKOCYTE ESTERASE Trace(A) Negative 04/14/2024 7:26 AM [facility] Urine URINE SPECIMEN / Unknown Non-Blood / Unknown 04/14/2024 6:29 AM DATA WAREHOUSE MANAGER 04/14/2024 6:36 AM DATA WAREHOUSE MANAGER us Santy Crowley MD URINE Final Re sult [facility] [address] [place] [address], * SCAN-CARDIAC STRIP (04/13/2024 8:03 PM DATA WAREHOUSE MANAGER) us Scanner OTHER Final Result * PICC LINE (04/13/2024 7:28 PM DATA WAREHOUSE MANAGER) Narrative Eleonora Fox RN - 04/13/2024 7:28 PM DATA WAREHOUSE MANAGER Eleonora Fox RN 04/13/2024 7:33 PM PICC Line Insertion Note 04/13/2024 7:28 PM Procedure education reviewed: Placement procedure, discussed with: Patient face to face. Patient face to face confirms understanding of procedure. Sprue Knocker used: No Reason for insertion: MD order and Vasoactive Medications Medical/ Surgical/ Allergies History reviewed: Yes. Preprocedure Verification: Yes 1) Provider Order verified 2) Patient identity verified; 3) side/site/procedure confirmed; 4) relevant information/documentation available, reviewed and properly matched to the patient; 5) For PICC insertions, consent accurate and complete or verified provider has ordered emergent placement; 6) equipment and supplies available Site Marking: Yes Site marked if not in continuous attendance with the patient Time Out: Yes Time out was conducted just prior to starting procedure to verify the four required elements: 1) patient name and date of 2) confirmation that the correct side/site are marked if applicable, including visualization of the site asiya 3) name of procedure including laterality if applicable, and 4) essential imaging and results are properly labeled and appropriately displayed, if applicable. Site assessment pre-insertion: Intact. Local anesthetic used at site: Yes, 1% Lidocaine. The following Central Line Insertion Checklist was used: Hand Hygiene: Yes Maximal Barrier Precautions including Sterile Gown, Hat and Mask: Yes Full Body Drape: Yes Site cleansed with: Chlorhexidine gluconate prep. PICC Line 1 Lumen Right;Basilic;Upper Arm PICC/SVC (Active) 04/13/241899 Right;Basilic;Upper Arm Vessel Diameter: 0.46 [id number] Ratio (%): Visible Catheter Length (cm): 0 cm Placed/Present Prior to Encounter: (IA) Placed Prior to Admission?: Type: Valved Catheter (IA) Size: Tip Location: PICC/SVC PICC Mid-Arm Circumference (cm): 28.5 cm Total Length of Catheter (cm): 38 cm Insertion Attempts: 1 (IA) Insertion Attempts: Local Anesthetic: Injectable Placement Verification: Blood Return;Ultrasound;ECG Removed Catheter Length (cm): Removed/Resolved Prior to Encounter: Visible Catheter Length (cm) 0 cm 04/13/241899 Arm Circumference (cm) 28.5 cm 04/13/241899 Status Lumen One Blood Return;Capped/Locked 04/13/241899 Line Assessment Antimicrobial patch and dressing clean/dry/intact 04/13/241899 Site Description Dry/Flat;Covered 04/13/241899 Line Intervention New dressing applied and NO hemostatic agent/gauze 04/13/241899 Dressing change due date 04/20/2024 04/13/241899 Line Prospecting Driller Helper Name: Bard Line Type: Valved Power PICC Lot Number: [id number] Access Assistance:Modified Seldinger Technique (Micro-Introducer) WITH Dermatotomy (skin robson), Ultrasound Guidance, and Tip confirmation system/ECG Post-insertion: Able to remove guidewire: Smoothly. Able to aspirate blood in each lumen: Yes Able to flush catheter without resistance in each lumen: Yes Each lumen flushed with: 20 ml(s) of 0.9% saline, and no Heparin. Cap applied to each lumen: Yes Line secured with: [facility] dressing policy/procedure followed. PICC Line standing orders implemented: Yes X- ray pending: No, tip confirmed with ECG Insertion complications: None Patient tolerated the procedure: Yes Pt appeared calm and restful throughout procedure. PICC education reviewed: Given to patient us Lauro Kendall MD IV ORD Final Res ult * Insert PICC line (04/13/2024 7:20 PM DATA WAREHOUSE MANAGER) Narrative Eleonora Fox, AMELIA - 04/13/2024 7:20 PM DATA WAREHOUSE MANAGER Eleonora Fox, RN 04/13/2024 7:22 PM PICC Tip Location Confirmation Note 04/13/2024 7:21 PM PICC tip location is superior vena cava per PICC RN confirmed by ECG. Plan: - PICC tip location has been confirmed by ECG and is okay to use as a central venous catheter per hospital policy. ECG tracing has been copied below or has been entered into patient's chart. Pt's RN notified OK to use. us Lauro Kendall MD IV ORD Final Res ult * SCAN-CARDIAC STRIP (04/13/2024 3:12 PM DATA WAREHOUSE MANAGER) us Scanner OTHER Final Result * ICD ANALYSIS DUAL WITHOUT REPROGRAM (04/13/2024 1:57 PM DATA WAREHOUSE MANAGER) Narrative Vasyl Kim MD - 04/13/2024 1:57 PM DATA WAREHOUSE MANAGER Mirela Bates, AMELIA 04/13/2024 2:23 PM ICD EVALUATION REPORT 04/13/2024 Summary: Normal pacemaker function. Lead trends stable. 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 No VT detections. AP 2.9%, QUALITY CHECKER 51.9%. Battery estimating 11.3 years remaining. Indication for ICD: Primary Prevention of Sudden Cardiac Primary MD: Shana Lozano DO Primary Surveying Crew Stake Runner: [facility] Implanting MD: Bert Quiros- [facility] DEVICE DATA Prospecting Driller Helper Medtronic: Model [place] XT DR [id number] Implant Date 04/09/2023 LEAD DATA Atrial Lead: Prospecting Driller Helper Medtronic: Model 5076-52 cm Implant Date 04/09/23 RV Lead: Prospecting Driller Helper Medtronic: Model 6935M-62 cm Implant Date 04/09/23 Advisory: 07/2022 Presence of a glassed feedthrough creates increased risk of unexpected HV arching within the header during therapy delivery. No impact on pacing, sensing, detection, ATP delivery, HV charging, battery, or telemetry, and this will only occur during shock delivery. Monitor for reduced or no-energy shock delivery, a defib impedance of 0-<20 ohms and persistent 50% drop in all pacing impedances. Program all HV pathways B>AX. Routine monitoring once reprogramming completed. Tachy therapy hx: none Location of evaluation: [facility] [id number] Reason for evaluation: MD request- check RV pacing percentage. Patient is post NOEL cardioversion on 04/12/24` MEASUREMENTS Atrial Sensing - P wave: 4.5 mV Atrial Capture: 0.75 V @ 0.4 ms auto Atrial Lead Impedance: 361 ohms Ventricular Sensing - R wave: 16.3 mV RV Capture: 0.5 V @ 0.4 ms Ventricular Pacing Lead Impedance: Right - 551 ohms Ventricular Shock Impedance: 88 ohms Underlying rhythm:sinus rhythm at 79 bpm with intact AV conduction DIAGNOSTIC DATA - since 04/07/24 Atrial paced - 2.9%, Ventricular paced -51.9%, previous: 2.2% Atrial episodes (AF web alerts ON for >6 hours and v rates > 100 bpm for > 6 hours) ): none since cardioversion on 04/12/24 Ventricular histogram while in afib. Associated symptoms:na Ventricular episodes: none Associated symptoms: na Histogram in sinus rhythm: Battery voltage: 3.02 V Estimated battery longevity: 11.3 years Last capacitor reform: 02/21/24 Charge time: 3.8 seconds FINAL VENTRICULAR TACHYCARDIA PARAMETERS Rate (bpm): 167 - 200 Therapy: monitor only NID: 32 Rate (bpm): 200 - 250 Therapy: iATP 8, 40 j X 5 NID: 30/40 Rate (bpm): > - 250 Therapy: iATP 4, 40 j X 5 NID: 30/40 FINAL BRADYCARDIA PACEMAKER PARAMETERS Mode: AAIR <=> DDDR Lower rate: 60 bpm Upper rate: 130/130 bpm AV Delay: 180/150 ms Mode Switch: 150 bpm Rate Response: low 3/3 Atrial - Amplitude: adaptive 1.5 V Pulse width: 0.4 ms Sensitivity: 0.3 mV Refractory: auto ms Polarity: bipolar Right Ventricular - Amplitude: adaptive 2.0 V Pulse width: 0.45 ms Sensitivity: 0.9 mV Polarity: bipolar Changes made: Device temporarily reprogrammed, iterative adjustments made during interrogation/testing.No permanent changes made. Follow up: follows with [facility] device clinic Mirela Bates RN Nurse Clinician II [facility] Pacemaker/ICD Clinic [phone] us Vasyl Kim MD CARDIAC SERVICES ORD Final Result * SCAN-CARDIAC STRIP (04/13/2024 7:35 AM DATA WAREHOUSE MANAGER) Scanner OTHER Final Result * (ABNORMAL) COMPREHENSIVE BLOOD GAS MIXED VENOUS (04/12/2024 4:48 PM DATA WAREHOUSE MANAGER) O2 SATURATION, MEASURED, MIXED VENOUS 41(L) 70 - 75 % 04/12/2024 4:48 PM DATA WAREHOUSE MANAGER [facility] PATIENT TEMPERATURE 37.0 Degrees C 04/12/2024 4:48 PM DATA WAREHOUSE MANAGER [facility] COLLECTION SITE PULMONARY ARTERY 04/12/2024 4:48 PM DATA WAREHOUSE MANAGER [email or web address] HEMOGLOBIN,BLOO D GAS 11.4(L) 13.5 - 17.5 g/dL 04/12/2024 4:48 PM DATA WAREHOUSE MANAGER [email or web address] Blood BLOOD SPECIMEN / Unknown 04/12/2024 4:48 PM DATA WAREHOUSE MANAGER 04/12/2024 4:48 PM DATA WAREHOUSE MANAGER us [facility] CHEMISTRY Final Re sult [facility] LAB[facility]AT[facility]-CENTRAL LABORATORY [address] [place] [address], [place] * CVL OTHER PROCEDURE (04/12/2024 4:09 PM DATA WAREHOUSE MANAGER) Anatomical Region Laterality Modality Other 04/12/2024 4:09 PM DATA WAREHOUSE MANAGER us Provider Referring CV IMAGING Final Result * SCAN-CARDIAC STRIP (04/12/2024 3:27 PM DATA WAREHOUSE MANAGER) us Scanner OTHER Final Result * US RENAL AND BLADDER COMPLETE (04/12/2024 2:51 PM DATA WAREHOUSE MANAGER) Anatomical Region Laterality Modality Abdomen, AORTA, KIDNEYS Ultrasou nd 04/12/2024 3:46 PM DATA WAREHOUSE MANAGER Impressions 04/12/2024 3:46 PM DATA WAREHOUSE MANAGER Simple appearing right lower pole renal cyst. Otherwise, no concerning findings on a renal ultrasound. Dictated by Danny Rubio MD @ 04/12/2024 3:46:12 PM (Electronically Signed) Narrative 04/12/2024 3:46 PM DATA WAREHOUSE MANAGER For Patients: As a result of the Cures Act, medical imaging exams and procedure reports are released immediately into your electronic medical record. You may view this report before your referring provider. If you have questions, please contact your health care provider. INDICATION: Renal failure. TECHNIQUE: Ultrasound renal and bladder complete. Lane-scale and color Doppler sonographic images were acquired of the kidneys and urinary bladder. COMPARISON: None. FINDINGS: Right kidney: Right kidney measures 10.1 x 5.1 x 4.8 cm. Normal echotexture and cortex. No nephrolithiasis or hydronephrosis. Simple renal cyst at the lower pole of right kidney measures 2.8 x 3.3 cm. Left kidney: Left kidney measures 10.0 x 5.8 x 5.5 cm.. Lobulated appearance of the left renal parenchyma. Normal echotexture and cortex. No suspicious masses, stones, or hydronephrosis. Preserved corticomedullary differentiation bilaterally. Bladder: Normal in caliber and appearance. Procedure Note Danny Rubio MD - 04/12/2024 For Patients: As a result of the Cures Act, medical imagingexams and procedure reports are released immediately into your electronicmedical record. You may view this report before your referring provider.If you have questions, please contact your health care provider. INDICATION: Renal failure. TECHNIQUE: Ultrasound renal and bladder complete. Lane-scale and color Dopplersonographic images were acquired of the kidneys and urinary bladder. COMPARISON: None. FINDINGS: Right kidney: Right kidney measures 10.1 x 5.1 x 4.8 cm. Normalechotexture and cortex. No nephrolithiasis or hydronephrosis. Simplerenal cyst at the lower pole of right kidney measures 2.8 x 3.3 cm. Left kidney: Left kidney measures 10.0 x 5.8 x 5.5 cm.. Lobulatedappearance of the left renal parenchyma. Normal echotexture and cortex.No suspicious masses, stones, or hydronephrosis. Preserved corticomedullary differentiation bilaterally. Bladder: Normal in caliber and appearance. IMPRESSION: Simple appearing right lower pole renal cyst. Otherwise, no concerning findings on a renal ultrasound. Dictated by Danny Rubio MD @ 04/12/2024 3:46:12 PM (Electronically Signed) us Santy Crowley MD Final Re sult * ECHO NOEL WO CONTRAST W COLOR W LTD DOPPLER (04/12/2024 10:52 AM DATA WAREHOUSE MANAGER) MITRAL VALVE MR ERO 13 mm2 EJECTION FRACTION 10 - 20% Anatomical Region Laterality Modality Ultrasound 04/12/2024 10:2 2 AM DATA WAREHOUSE MANAGER Narrative 04/12/2024 1:01 PM DATA WAREHOUSE MANAGER TRANSESOPHAGEAL ECHOCARDIOGRAM CASEY SOLER : 1950 73 years Study Date: 04/12/2024 10:22:59 AM Gender: M BP: 96/76 mmHg Height: 172.00 cm BSA: 1.91 m Weight: 78.00 kg Tech: LETICIA/ION Referring MD: FARA BLACKWELL Site: [facility] Reading Location: [facility] Patient Location: Inpatient. Procedure: NOEL, Limited Spectral Doppler and Color Doppler. Indication for study: Cardioversion Cardiac Rhythm: Atrial fibrillation.Study quality: Good. Final Impressions: 1. Severely increased left ventricular size, severe decreased global systolic function with an estimated EF of 10-20%. 2. Moderately enlarged left atrium. 3. Right ventricular cavity size is normal, global systolic RV function is moderately reduced. 4. The aortic valve is trileaflet and sclerotic, no stenosis and no regurgitation. 5. The mitral valve is sclerotic, moderate to severe mitral regurgitation. 6. Moderate tricuspid regurgitation. 7. Decreased left atrial appendage flow velocities. 8. No evidence of thrombus present in the left atrial appendage. 9. Normal sized aortic arch with moderate plaque visualized. 10. Normal sized descending aorta with moderate plaque visualized. Procedure comments: Indications, goals, risks and alternatives of the procedure were discussed with the patient and informed consent was obtained. The patient received sedation of intravenous Propofol and general anesthesia. See procedural record for anesthesia details. Prior to performance of procedure, time out was called to accurately identify the patient and procedure. The Foxtrot probe was passed without difficulty. NOEL, Limited Spectral Doppler and Color Doppler was performed. The patient developed no apparent complications during the procedure. Estimated Blood Loss: 0 ml Chamber Sizes and Function Severely increased left ventricular size, severe decreased global systolic function with an estimated EF of 10-20%. No resting regional wall motion abnormality visualized. Left atrial size is moderately enlarged. The left atrial appendage is well visualized and there is no evidence of thrombus present. Decreased left atrial appendage flow velocities. Right ventricular cavity size is normal, global systolic RV function is moderately reduced. Pacing wire/catheter visualized in the right ventricle and pacing wire/catheter visualized in the right atrium. The right atrium is moderately enlarged. The pulmonary artery is not well visualized. The sinus of Valsalva is normal sized. The ascending aorta is normal sized. Aortic arch is normal sized with moderate plaque visualized. Descending aorta is normal sized with moderate plaque visualized. Valves, RV Pressures and Diastolic Function The aortic valve is trileaflet and sclerotic, no stenosis and no regurgitation. The mitral valve is sclerotic, moderate to severe mitral regurgitation. The tricuspid valve is normal in structure. Tricuspid regurgitation is moderate. The pulmonic valve is normal. Trace pulmonary regurgitation. Masses, Effusion, Shunts There is no pericardial effusion. Atrial septum is intact. Agitated saline injection not done. MEASUREMENTS AND CALCULATIONS 2-D Measurements and LV Function: Ao Sinus 3.5 cm HR 116 bpm Mitral Valve: MR ERO 0.13 cm MR Vol. 13 ml MR TVI 0.99 m . This study was interpreted by an [facility] accredited facility. Final Procedure Note Troy Munoz MD - 04/12/2024 TRANSESOPHAGEAL ECHOCARDIOGRAM CASEY SOLER : 1950 73 years Study Date: 04/12/2024 10:22:59 AM Gender: M BP: 96/76 mmHg Height: 172.00 cm BSA: 1.91 m Weight: 78.00 kg Tech: LETICIA/IJ Referring MD: FARA BLACKWELL Site: [facility] Reading Location: [facility] Patient Location: Inpatient. Procedure: NOEL, Limited Spectral Doppler and Color Doppler. Indication for study: Cardioversion Cardiac Rhythm: Atrial fibrillation.Study quality: Good. Final Impressions: 1. Severely increased left ventricular size, severe decreased globalsystolic function with an estimated EF of 10-20%. 2. Moderately enlarged left atrium. 3. Right ventricular cavity size is normal, global systolic RV functionis moderately reduced. 4. The aortic valve is trileaflet and sclerotic, no stenosis and noregurgitation. 5. The mitral valve is sclerotic, moderate to severe mitralregurgitation. 6. Moderate tricuspid regurgitation. 7. Decreased left atrial appendage flow velocities. 8. No evidence of thrombus present in the left atrial appendage. 9. Normal sized aortic arch with moderate plaque visualized. 10. Normal sized descending aorta with moderate plaque visualized. Procedure comments: Indications, goals, risks and alternatives of theprocedure were discussed with the patient and informed consent wasobtained. The patient received sedation of intravenous Propofol andgeneral anesthesia. See procedural record for anesthesia details. Prior toperformance of procedure, time out was called to accurately identify thepatient and procedure. The Foxtrot probe was passed without difficulty.NOEL, Limited Spectral Doppler and Color Doppler was performed. The patientdeveloped no apparent complications during the procedure. Estimated Blood Loss: 0 ml Chamber Sizes and Function Severely increased left ventricular size, severe decreased global systolicfunction with an estimated EF of 10-20%. No resting regional wall motionabnormality visualized. Left atrial size is moderately enlarged. The leftatrial appendage is well visualized and there is no evidence of thrombuspresent. Decreased left atrial appendage flow velocities. Rightventricular cavity size is normal, global systolic RV function ismoderately reduced. Pacing wire/catheter visualized in the right ventricleand pacing wire/catheter visualized in the right atrium. The right atriumis moderately enlarged. The pulmonary artery is not well visualized. Thesinus of Valsalva is normal sized. The ascending aorta is normal sized.Aortic arch is normal sized with moderate plaque visualized. Descendingaorta is normal sized with moderate plaque visualized. Valves, RV Pressures and Diastolic Function The aortic valve is trileaflet and sclerotic, no stenosis and noregurgitation. The mitral valve is sclerotic, moderate to severe mitralregurgitation. The tricuspid valve is normal in structure. Tricuspidregurgitation is moderate. The pulmonic valve is normal. Trace pulmonaryregurgitation. Masses, Effusion, Shunts There is no pericardial effusion. Atrial septum is intact. Agitated salineinjection not done. MEASUREMENTS AND CALCULATIONS 2-D Measurements and LV Function: Ao Sinus 3.5 cm HR 116 bpm Mitral Valve: MR ERO 0.13 cm MR Vol. 13 ml MR TVI 0.99 m . This study was interpreted by an [facility] accredited facility. Final us Fara Blackwell REFRIGERATOR ROOM CLERK ECHO ORD Final Resu lt * EP OTHER PROCEDURE (04/12/2024 10:48 AM DATA WAREHOUSE MANAGER) Anatomical Region Laterality Modality Other Narrative 04/12/2024 10:48 AM DATA WAREHOUSE MANAGER Troy Munoz MD 04/12/2024 10:48 AM [facility] Procedure Note Date of Service: 04/12/2024 Procedure type: cardioversion Preoperative diagnosis: Atrial fibrillation or atrial flutter Indications, goals, risks, and alternatives of transesophageal echocardiography and cardioversion were reviewed with the patient and informed consent obtained. TIME OUT performed. Sedation administered by Anesthesiology. NOEL 04/12/2024 demonstrated no left atrial appendage thrombus. See separate NOEL report for details of findings. The patient is therapeutically anticoagulated on eliquis. One synchronized shock(s) administered at 200 joules with cardioversion patches in an anterior/posterior position. A sensed v paced restored. There were no apparent complications. Troy Munoz MD us Emilee Hudson NP CV IMAGING Final Re sult * SCAN-CARDIAC STRIP (04/12/2024 3:46 AM DATA WAREHOUSE MANAGER) us Scanner OTHER Final Result * SCAN-OPERATIVE/PROCEDURE REPORT (04/12/2024 12:00 AM DATA WAREHOUSE MANAGER) Narrative 04/12/2024 12:00 AM DATA WAREHOUSE MANAGER Ordered by an unspecified provider. us Other Clinical Staff OTHER Final Resul t * SCAN-CARDIAC STRIP (04/11/2024 8:21 PM DATA WAREHOUSE MANAGER) us Scanner OTHER Final Result * SCAN-CARDIAC STRIP (04/11/2024 4:18 PM DATA WAREHOUSE MANAGER) us Scanner OTHER Final Result * SCAN-CARDIAC STRIP (04/11/2024 7:48 AM DATA WAREHOUSE MANAGER) us Scanner OTHER Final Result * SCAN-CARDIAC STRIP (04/10/2024 4:04 PM DATA WAREHOUSE MANAGER) us Scanner OTHER Final Result * SCAN-CARDIAC STRIP (04/10/2024 10:29 AM DATA WAREHOUSE MANAGER) us Scanner OTHER Final Result * SCAN-CARDIAC STRIP (04/10/2024 5:01 AM DATA WAREHOUSE MANAGER) us Scanner OTHER Final Result * SCAN-CARDIAC STRIP (04/09/2024 7:40 PM DATA WAREHOUSE MANAGER) us Scanner OTHER Final Result * SCAN-CARDIAC STRIP (04/09/2024 3:40 PM DATA WAREHOUSE MANAGER) us Scanner OTHER Final Result * PATH TISSUE EXAM (04/08/2024 12:39 PM DATA WAREHOUSE MANAGER) Case Report Pathology Report Case: [id number] Authorizing Provider: Chepe Francis MD Collected: 04/08/2024 1239 Ordering Location: [facility] Received: 04/08/2024 1244 [facility] Pathologist: Lukasz Pinto MD Specimen: Gastric Biopsy 04/09/2024 11:12 AM DATA WAREHOUSE MANAGER [facility] Final Diagnosis A) STOMACH, BIOPSY: 1. Normal gastric antral and body mucosae with endoscopic erosion (see comment) 2. Negative for chronic gastritis or Helicobacter 04/09/2024 11:12 AM [facility] Comment A) We note the endoscopic presence of an erosion. The sampled mucosa is histologically normal. In this context patchy reactive gastropathy due to chemical type injury (NSAIDs, alcohol, bile reflux, etc.) seems likely. Please correlate clinically. 04/09/2024 11:12 AM [facility] Clinical Information 73-year-old male with iron deficiency anemia and melena. He is on chronic aspirin, Plavix, and ibuprofen. EGD identified a single erosion in the prepyloric region of the stomach. 04/09/2024 11:12 AM [facility] Gross Description A) Received in formalin is a 6 x 3 x 1 mm aggregate of alvarez mucosa. Submitted in one cassette. It is labeled with the patient's name and designated gastric biopsy. Joana Estrada 04/08/2024 1:06 PM 04/09/2024 11:12 AM [facility] Microscopic Description The final diagnosis is based on microscopic examination of appropriate sections of all specimens. 04/09/2024 11:12 AM [facility] Additional Information Interpreted at [facility], Central Laboratory - [address] [facility] [address], [place] [address] 04/09/2024 11:12 AM DATA WAREHOUSE MANAGER [facility] Biopsy GASTRIC BIOPSY SPECIMEN / Unknown 04/08/2024 12:39 PM DATA WAREHOUSE MANAGER 04/08/2024 12:44 PM DATA WAREHOUSE MANAGER Chepe Francis MD PATHOLOGY/CYTOLOGY Christy l Result [facility] [address] [place] [address], [place] * ENDOSCOPY (04/08/2024 9:49 AM DATA WAREHOUSE MANAGER) 04/08/2024 9:49 AM DATA WAREHOUSE MANAGER Narrative Transcriptions Chepe Francis MD - 04/08/2024 1:46 PM [facility] Patient Name: Casey Soler Procedure Date: 04/08/2024 Gender: Male Date of : 1950 Admit Type: Inpatient Procedure: Upper GI endoscopy Proceduralist: Chepe Francis MD - [facility] Indications/Pre-Op Diagnosis: Iron deficiency anemia, Melena; chronicaspirin 81 mg and plavix; chronic ibuprofen usedaily; recently started on anticoagulation foratrial fibrillation Medications: Monitored Anesthesia Care Procedure Description: Risk of bleeding, infection, perforation, need for surgery and alternatives discussed. The endoscope [id number] was introduced through the mouth, and advanced to the second part of duodenum. The upper GI endoscopy was accomplished without difficulty. The patient tolerated the procedure well. Complications: No immediate complications. Estimated Blood Loss & Specimen: Estimated blood loss: none. Specimen collected: Yes and sent to Laboratory Findings: The esophagus was normal. Mild inflammation characterized by a single erosion and erythema was found in the prepyloric region of the stomach. Biopsies were takenwith a cold forceps for Helicobacter pylori testing. The exam of the stomach was otherwise normal. Patchy mildly erythematous and granular-appearing mucosa was found in the first portion of the duodenum. The exam of the duodenum was otherwise normal. Impressions/Post-Op Diagnosis: - Normal esophagus. - Midl gastritis, characterized by erosion and erythema. Biopsied. - Mild duodenitis. - Gastritis and duodenitis likely caused recent melena, and areprobably related to chronic aspirin, ibuprofen, and plavix. Recommendation: - Return patient to [facility] for ongoing care. - Resume regular diet today. - Await pathology results. - Continue pantoprazole 40 mg twice per day for 1 month, then can decrease to 40 mg daily afterward indefinitely. - Okay to resume anticogulation and anti-platelet agents asindicated. Chepe Francis MD 04/08/2024 1:11:57 PM This report has been signed electronically. Note Initiated On: 04/08/2024 9:49 AM Chepe Francis MD PROCEDURE ORD Edited Result - Final * EXTRA TUBE LAVENDER (04/08/2024 6:45 AM DATA WAREHOUSE MANAGER) Only the most recent of2 resultswithin the time period is included. Blood BLOOD SPECIMEN / Unknown Non-Lab Venipuncture / Unknown 04/08/2024 6:45 AM DATA WAREHOUSE MANAGER 04/08/2024 6:57 AM DATA WAREHOUSE MANAGER Joseph Arora MD LABORATORY Final Re sult [facility] [address] [place] [id number], [place] * EXTRA TUBE BLUE (04/08/2024 6:45 AM DATA WAREHOUSE MANAGER) Only the most recent of3 resultswithin the time period is included. Blood BLOOD SPECIMEN / Unknown Non-Lab Venipuncture / Unknown 04/08/2024 6:45 AM DATA WAREHOUSE MANAGER 04/08/2024 6:57 AM DATA WAREHOUSE MANAGER Joseph Arora MD LABORATORY Final Re sult Performing Organization Address [facility] Co de Phone Number [facility] [address] [place] [id number], [place] * SCAN-CARDIAC STRIP (04/07/2024 11:52 PM DATA WAREHOUSE MANAGER) Scanner OTHER Final Result * (ABNORMAL) DIGOXIN (04/07/2024 1:50 PM DATA WAREHOUSE MANAGER) Pathologist [facility] DIGOXIN 2.5(H) 0.8 - 2.0 ng/mL 04/07/2024 2:32 PM DATA WAREHOUSE MANAGER [facility] TRAL LABORATORY DATE OF LAST DOSE Not Given 04/07/2024 2:32 PM DATA WAREHOUSE MANAGER [facility] TRAL LABORATORY TIME OF LAST DOSE Not Given 04/07/2024 2:32 PM DATA WAREHOUSE MANAGER [facility] TRAL LABORATORY Blood BLOOD SPECIMEN / Unknown Venipuncture / Unknown 04/07/2024 1:50 PM DATA WAREHOUSE MANAGER 04/07/2024 1:55 PM DATA WAREHOUSE MANAGER Guille Choi NP CHEMISTRY Final Result Performing Organization Address [facility] [facility] Co de Phone Number [facility] [address] [address], [place] * COVID/FLU/RSV PANEL (04/07/2024 9:48 AM DATA WAREHOUSE MANAGER) Pathologist [facility] COVID 19 [facility] Negative Negative 04/07/2024 12:16 PM DATA WAREHOUSE MANAGER [facility] Comment:All PCR tests are krishnan bject to false negative result due to variability in viral load and collection technique. A negative result does not rule out a SARS-CoV-2 infection. Clinical correlation required. INFLUENZA A PCR Negative 12:16 PM DATA WAREHOUSE MANAGER [facility] INFLUENZA B PCR Negative 12:16 PM DATA WAREHOUSE MANAGER [facility] Respiratory Syncytial Virus Negative 04/07/2024 12:16 PM DATA WAREHOUSE MANAGER [facility] Swab NASOPHARYNGEAL SWAB / Unknown Non-Blood / Unknown 04/07/2024 9:48 AM DATA WAREHOUSE MANAGER 04/07/2024 10:17 AM DATA WAREHOUSE MANAGER us Joseph Arora MD MICROBIOLOGY Final Re sult [facility] [address] [place] [address], * ICD ANALYSIS DUAL WITHOUT REPROGRAM (04/07/2024 9:05 AM DATA WAREHOUSE MANAGER) Narrative Chato Benz MD - 04/07/2024 9:05 AM DATA WAREHOUSE MANAGER Mirela Bates RN 04/07/2024 9:59 AM ICD EVALUATION REPORT April 07, 2024 Summary: Normal pacemaker function. Lead trends stable. One AT/AF detection- beginning on 04/03/24 and has continuous since this time. Poor ventricular rate control. One VT detection on 01/29/24- 3 seconds rate of 233 bpm. AP 35.8%, QUALITY CHECKER 2.2%. Battery estimating 11.3 years remaining. Indication for ICD: Primary Prevention of Sudden Cardiac Primary MD: Shana Lozano DO Primary Surveying Crew Stake Runner: [facility] Implanting MD: Bert Quiros- [facility] DEVICE DATA Prospecting Driller Helper Medtronic: Model [place] XT DR [id number] Implant Date 04/09/2023 LEAD DATA Atrial Lead: Prospecting Driller Helper Medtronic: Model 5076-52 cm Implant Date 04/09/23 RV Lead: Prospecting Driller Helper Medtronic: Model 6935M-62 cm Implant Date 04/09/23 Advisory: 07/2022 Presence of a glassed feedthrough creates increased risk of unexpected HV arching within the header during therapy delivery. No impact on pacing, sensing, detection, ATP delivery, HV charging, battery, or telemetry, and this will only occur during shock delivery. Monitor for reduced or no-energy shock delivery, a defib impedance of 0-<20 ohms and persistent 50% drop in all pacing impedances. Program all HV pathways B>AX. Routine monitoring once reprogramming completed. Tachy therapy hx: none Location of evaluation: [facility] [id number] Reason for evaluation: request MEASUREMENTS Atrial Sensing - P wave: 2.1 mV Atrial Capture: afib Atrial Lead Impedance: 380 ohms Ventricular Sensing - R wave: 18.6 mV RV Capture: 0.75 V @ 0.4 ms Ventricular Pacing Lead Impedance: Right - 589 ohms Ventricular Shock Impedance: 90 ohms Underlying rhythm: Atrial Fibrillation with ventricular rates from 70-120 bpm. DIAGNOSTIC DATA - since 01/16/24 Atrial paced - 35.8%, Ventricular paced -2.2% Atrial episodes (AF web alerts ON for >6 hours): one episode beginning on 04/03/24 4:43 am- continuous since that time Ventricular histogram during afib: Associated symptoms: SOB, dizziness Ventricular episodes: 1 NSVT - 3 seconds of NSVT rate 233 bpm on 01/29/24. Associated symptoms: na Histogram in sinus rhythm: Battery voltage: 3.02 V Estimated battery longevity: 11.3 years Last capacitor reform: 02/21/24 Charge time: 3.8 seconds FINAL VENTRICULAR TACHYCARDIA PARAMETERS Rate (bpm): 167 - 200 Therapy: monitor only NID: 32 Rate (bpm): 200 - 250 Therapy: iATP 8, 40 j X 5 NID: 30/40 Rate (bpm): > - 250 Therapy: iATP 4, 40 j X 5 NID: 30/40 FINAL BRADYCARDIA PACEMAKER PARAMETERS Mode: AAIR <=> DDDR Lower rate: 60 bpm Upper rate: 130/130 bpm AV Delay: 180/150 ms Mode Switch: 150 bpm Rate Response: low 3/3 Atrial - Amplitude: adaptive 1.5 V Pulse width: 0.4 ms Sensitivity: 0.3 mV Refractory: auto ms Polarity: bipolar Right Ventricular - Amplitude: adaptive 2.0 V Pulse width: 0.45 ms Sensitivity: 0.9 mV Polarity: bipolar Changes made: Device temporarily reprogrammed, iterative adjustments made during interrogation/testing.No permanent changes made. Follow up: follows with [facility] device clinic Mirela Bates RN Nurse Clinician II I Pacemaker/ICD Clinic [phone] us Chato Benz MD CARDIAC SERVICES ORD F inal Result * ECHO TTE LIMITED W CONTRAST W COLOR W DOPPLER (04/07/2024 8:53 AM DATA WAREHOUSE MANAGER) AORTIC VALVE MEAN PG 2 mmHg EJECTION FRACTION 20 % LVEDD 6.6 cm Anatomical Region Laterality Modality Ultrasound 04/07/2024 8:08 AM DATA WAREHOUSE MANAGER Narrative 04/07/2024 9:36 AM DATA WAREHOUSE MANAGER ECHOCARDIOGRAM CASEY SOLER : 1950 73 years Study Date: 04/07/2024 8:08:24 AM Gender: M BP: 90/87 mmHg Height: 172.00 cm BSA: 1.94 m Weight: 81.00 kg Tech: LETICIA Referring MD: GUILLE CHOI Site: [facility] Reading Location: ANW IP Patient Location: Inpatient. Procedure: Limited Echo w/ Contrast, Limited Spectral Doppler and Color Doppler. Indication for study: LTD to assess for general fx and valves. Cardiac Rhythm: Irregular.Study quality: Good. Final Impressions: Limited Echocardiogram performed 1. Moderate to severely increased left ventricular size, normal wall thickness, severely reduced global systolic function, calculated EF of 20 %. 2. There is severe global left ventricular hypokinesis with basal segments contrating best. 3. Right ventricular cavity size is normal, global systolic RV function is mildly reduced. 4. The aortic valve is trileaflet and sclerotic, no stenosis and no regurgitation. 5. The mitral valve is sclerotic, moderate mitral regurgitation. 6. Moderate tricuspid regurgitation. 7. Echo contrast was administered to enhance visualization of all left ventricular segments. 8. No pericardial effusion. 9. LVOT VTI is low suggestive of low cardiac output. Comparison Compared to prior exam images of 11-22-20: - The left ventricular function has significantly decreased. - Mitral regurgitation has increased. - Tricuspid regurgitation has increased. Chamber Sizes and Function Moderate to severely increased left ventricular size, normal wall thickness, severely reduced global systolic function, calculated EF of 20 %. There is severe global left ventricular hypokinesis. Right ventricular cavity size is normal, global systolic RV function is mildly reduced. The right atrium is normal. Right atrial volume index is 25 ml/m . Right atrial area is 18 cm . The sinus of Valsalva is normal sized. Valves, RV Pressures and Diastolic Function The aortic valve is trileaflet and sclerotic, no stenosis and no regurgitation. The mitral valve is sclerotic, moderate mitral regurgitation. The tricuspid valve is normal in structure. Tricuspid regurgitation is moderate. Masses, Effusion, Shunts There is no pericardial effusion. The inferior vena cava is not well visualized, respiratory size variation not well visualized. MEASUREMENTS AND CALCULATIONS 2-D Measurements and LV Function: LVID (d) 6.6 cm Planimetered EF 20 % LVID (s) 6.2 cm LV FS% (2D) 7 % IVS (d) 0.9 cm LVOT diameter 2.0 cm LVPW (d) 0.9 cm HR 58 bpm Ao Sinus 3.4 cm RA Vol index 25 ml/m2 RA area 18 cm RV Max 4C (d) 4.4 cm Aortic Valve: Vmax 0.9 m/s AKASH (V) 2.81 cm VTI 0.11 m AKASH (I) 3.20 cm LVOT V max 0.8 m/s Max PG 3 mmHg LVOT VTI 0.11 m Mean PG 2 mmHg SV 34 ml Dim Index 1.02 SV index 18 ml/m CO 2.0 l/min CI 1.0 l/min/m Tricuspid Valve and estimated PA pressures: TAPSE 0.3 cm Contrast documentation: 2 ml diluted Definity, lot #[id number], [facility]# [id number] was administered peripherally to enhance visualization of all left ventricular segments. . This study was interpreted by an [facility] accredited facility. Final Procedure Note Jayashree Velarde MD - 04/07/2024 ECHOCARDIOGRAM CASEY SOLER : 1950 73 years Study Date: 04/07/2024 8:08:24 AM Gender: M BP: 90/87 mmHg Height: 172.00 cm BSA: 1.94 m Weight: 81.00 kg Tech: LETICIA Referring MD: GUILLE CHOI Site: [facility] Reading Location: ANW IP Patient Location: Inpatient. Procedure: Limited Echo w/ Contrast, Limited Spectral Doppler and ColorDoppler. Indication for study: LTD to assess for general fx and valves. Cardiac Rhythm: Irregular.Study quality: Good. Final Impressions: Limited Echocardiogram performed 1. Moderate to severely increased left ventricular size, normal wallthickness, severely reduced global systolic function, calculated EF of 20%. 2. There is severe global left ventricular hypokinesis with basalsegments contrating best. 3. Right ventricular cavity size is normal, global systolic RV functionis mildly reduced. 4. The aortic valve is trileaflet and sclerotic, no stenosis and noregurgitation. 5. The mitral valve is sclerotic, moderate mitral regurgitation. 6. Moderate tricuspid regurgitation. 7. Echo contrast was administered to enhance visualization of all leftventricular segments. 8. No pericardial effusion. 9. LVOT VTI is low suggestive of low cardiac output. Comparison Compared to prior exam images of 11-22-20: - The left ventricular function has significantly decreased. - Mitral regurgitation has increased. - Tricuspid regurgitation has increased. Chamber Sizes and Function Moderate to severely increased left ventricular size, normal wallthickness, severely reduced global systolic function, calculated EF of 20%. There is severe global left ventricular hypokinesis. Right ventricularcavity size is normal, global systolic RV function is mildly reduced. Theright atrium is normal. Right atrial volume index is 25 ml/m . Rightatrial area is 18 cm . The sinus of Valsalva is normal sized. Valves, RV Pressures and Diastolic Function The aortic valve is trileaflet and sclerotic, no stenosis and noregurgitation. The mitral valve is sclerotic, moderate mitralregurgitation. The tricuspid valve is normal in structure. Tricuspidregurgitation is moderate. Masses, Effusion, Shunts There is no pericardial effusion. The inferior vena cava is not wellvisualized, respiratory size variation not well visualized. MEASUREMENTS AND CALCULATIONS 2-D Measurements and LV Function: LVID (d) 6.6 cm Planimetered EF 20 % LVID (s) 6.2 cm LV FS% (2D) 7 % IVS (d) 0.9 cm LVOT diameter 2.0 cm LVPW (d) 0.9 cm HR 58 bpm Ao Sinus 3.4 cm RA Vol index 25 ml/m2 RA area 18 cm RV Max 4C (d) 4.4 cm Aortic Valve: Vmax 0.9 m/s AKASH (V) 2.81 cm VTI 0.11 m AKASH (I) 3.20 cm LVOT V max 0.8 m/s Max PG 3 mmHg LVOT VTI 0.11 m Mean PG 2 mmHg SV 34 ml Dim Index 1.02 SV index 18 ml/m CO 2.0 l/min CI 1.0 l/min/m Tricuspid Valve and estimated PA pressures: TAPSE 0.3 cm Contrast documentation: 2 ml diluted Definity, lot #[id number], [facility]#[id number] was administered peripherally to enhance visualization of allleft ventricular segments. . This study was interpreted by an [facility] accredited facility. Final us Guille Choi NP ECHO ORD Final Result * (ABNORMAL) LACTATE VENOUS (04/07/2024 6:20 AM DATA WAREHOUSE MANAGER) Only the most recent of3 resultswithin the time period is included. [facility] LACTATE,VENOUS 2.5(H) 0.5 - 2.0 mmol/L 04/07/2024 7:32 AM DATA WAREHOUSE MANAGER [facility] Blood BLOOD SPECIMEN / Unknown Venipuncture / Unknown 04/07/2024 6:20 AM DATA WAREHOUSE MANAGER 04/07/2024 6:59 AM DATA WAREHOUSE MANAGER us Guille Choi NP CHEMISTRY Final Result [facility] [address] [place] [address], * SCAN-CARDIAC STRIP (04/07/2024 5:29 AM DATA WAREHOUSE MANAGER) us Scanner OTHER Final Result * SCAN-CARDIAC STRIP (04/07/2024 3:14 AM DATA WAREHOUSE MANAGER) us Scanner OTHER Final Result * TYPE & SCREEN (04/07/2024 12:39 AM DATA WAREHOUSE MANAGER) ABORH A Rh Positive 04/07/2024 2:10 AM DATA WAREHOUSE MANAGER [facility] ANTIBODY SCREEN Negative Negative 04/07/2024 2:10 AM DATA WAREHOUSE MANAGER [facility] BLOOD B[facility] SPECIMEN EXPIRATION DATE/TIME 04/10/24 23:59 04/07/2024 2:10 AM DATA WAREHOUSE MANAGER [facility] Blood BLOOD SPECIMEN / Unknown Butterfly / Unknown 04/07/2024 12:39 AM DATA WAREHOUSE MANAGER 04/07/2024 1:05 AM DATA WAREHOUSE MANAGER Guille Choi REFRIGERATOR ROOM CLERK BLOOD BANK Final Result [facility] BLOOD BANK [address] [place] [address], * (ABNORMAL) Iron plus iron binding cap AM (04/07/2024 12:39 AM DATA WAREHOUSE MANAGER) IRON 57(L) 61 - 157 ug/dL 04/07/2024 2:03 AM DATA WAREHOUSE MANAGER [facility] UIBC (UNSATURATED) 229 112 - 347 ug/dL 04/07/2024 2:03 AM DATA WAREHOUSE MANAGER [facility] IRON BINDING CAPACITY 286 250 - 400 ug/dL 04/07/2024 2:03 AM [facility] IRON,% SATURATION 20 14 - 50 % 04/07/2024 2:03 AM DATA WAREHOUSE MANAGER [facility] Blood BLOOD SPECIMEN / Unknown Butterfly / Unknown 04/07/2024 12:39 AM DATA WAREHOUSE MANAGER 04/07/2024 1:05 AM DATA WAREHOUSE MANAGER Parmjit Berrios MD CHEMISTRY Final Resul t [facility] [address] [place] [address], * (ABNORMAL) Reticulocyte count AM (04/07/2024 12:39 AM DATA WAREHOUSE MANAGER) RETIC% 2.3(H) 0.5 - 1.5 % 04/07/2024 1:35 AM DATA WAREHOUSE MANAGER [facility] RETIC (ABSOLUTE) 0.09(H) 0.03 - 0.08 mil/cu mm 04/07/2024 1:35 AM DATA WAREHOUSE MANAGER [facility] Blood BLOOD SPECIMEN / Unknown Butterfly / Unknown 04/07/2024 12:39 AM DATA WAREHOUSE MANAGER 04/07/2024 1:05 AM DATA WAREHOUSE MANAGER Parmjit Berrios MD HEMATOLOGY Final Resul t Performing Organization Address [facility] Co de Phone Number [facility] [address] [place] [address], * Ferritin AM (04/07/2024 12:39 AM DATA WAREHOUSE MANAGER) FERRITIN 275.0 30.0 - 400.0 ng/mL 04/07/2024 1:58 AM DATA WAREHOUSE MANAGER [facility] Blood BLOOD SPECIMEN / Unknown Butterfly / Unknown 04/07/2024 12:39 AM DATA WAREHOUSE MANAGER 04/07/2024 1:05 AM DATA WAREHOUSE MANAGER Parmjit Berrios MD CHEMISTRY Final Resul t Performing Organization Address [facility]/[place] de Phone Number [facility] [address] [place] [address], * (ABNORMAL) COMP METABOLIC PANEL (04/07/2024 12:39 AM DATA WAREHOUSE MANAGER) SODIUM 131(L) 136 - 145 mmol/L 04/07/2024 1:30 AM DATA WAREHOUSE MANAGER [facility] POTASSIUM 3.8 3.5 - 5.1 mmol/L 04/07/2024 1:30 AM DATA WAREHOUSE MANAGER [facility] CHLORIDE 86(L) 98 - 107 mmol/L 04/07/2024 1:30 AM DATA WAREHOUSE MANAGER [facility] CO2,TOTAL 23 22 - 29 mmol/L 04/07/2024 1:30 AM DATA WAREHOUSE MANAGER [facility] ANION GAP 22(H) 5 - 18 04/07/2024 1:30 AM DATA WAREHOUSE MANAGER [facility] GLUCOSE 110(H) 70 - 99 mg/dL 04/07/2024 1:30 AM [facility] CALCIUM 9.1 8.8 - 10.4 mg/dL 04/07/2024 1:30 AM [facility] Comment: Reference ranges for this test were updated on 01/06/2024 to reflect our healthy population more accurately. Reference range changes are not retroactively applied to results, but previous results using the same methodology can be interpreted in the context of the new reference range. BUN 94(H) 8 - 23 mg/dL 04/07/2024 1:30 AM [facility] CREATININE 2.41(H) 0.70 - 1.20 mg/dL 04/07/2024 1:30 AM [facility] BUN/CREAT RATIO 39(H) 10 - 20 1:30 AM [facility] eGFR 28(L) >90 mL/min/1. 73m2 04/07/2024 1:30 AM [facility] Comment:As of 2021, eG FR is calculated by the CKD-EPI creatinine equation without race adjustment. eGFR can be influenced by muscle mass, exercise, and diet. The reported eGFR is an estimation only and is only applicable if the renal function is stable. ALBUMIN 3.8(L) 4.0 - 4.9 g/dL 04/07/2024 1:30 AM [facility] PROTEIN,TOTAL 6.4 6.0 - 8.0 g/dL 04/07/2024 1:30 AM [facility] BILIRUBIN,TOTAL 0.7 0.0 - 1.2 mg/dL 04/07/2024 1:30 AM [facility] ALK PHOSPHATASE 96 40 - 129 IU/L 04/07/2024 1:30 AM [facility] ALT (SGPT) 9(L) 10 - 50 IU/L 04/07/2024 1:30 AM [facility] AST (SGOT) 22 10 - 50 IU/L 04/07/2024 1:30 AM DATA WAREHOUSE MANAGER [facility] Blood BLOOD SPECIMEN / Unknown Butterfly / Unknown 04/07/2024 12:39 AM DATA WAREHOUSE MANAGER 04/07/2024 1:05 AM DATA WAREHOUSE MANAGER us Guille Choi NP CHEMISTRY Final Result [facility] [address] [place] [address], [place] * XR CHEST 1 VIEW PORTABLE (04/06/2024 8:19 PM DATA WAREHOUSE MANAGER) Anatomical Region Laterality Modality HEART, THORAX, CHEST Computed Ra diography 04/06/2024 8:19 PM DATA WAREHOUSE MANAGER Impressions 04/06/2024 8:48 PM DATA WAREHOUSE MANAGER Stable size of cardiomediastinal silhouette with pacemaker/AICD leads overlying the right atrium and right ventricle. Likely pulmonary vascular congestion with subtle interstitial opacities in the lung bases, right greater than left, differential includes mild edema and atypical infectious/inflammatory process. No definite pleural effusion or pneumothorax. No acute bony abnormality. Narrative 04/06/2024 8:48 PM DATA WAREHOUSE MANAGER For Patients: As a result of the Cures Act, medical imaging exams and procedure reports are released immediately into your electronic medical record. You may view this report before your referring provider. If you have questions, please contact your health care provider. EXAM: XR CHEST 1 VIEW PORTABLE LOCATION: [facility] DATE: 04/06/2024 INDICATION: Shortness of breath COMPARISON: Chest radiograph 04/09/2023. Procedure Note Derek Jain MD - 04/06/2024 For Patients: As a result of the Cures Act, medical imagingexams and procedure reports are released immediately into your electronicmedical record. You may view this report before your referring provider.If you have questions, please contact your health care provider. EXAM: XR CHEST 1 VIEW PORTABLE LOCATION: [facility] DATE: 04/06/2024 INDICATION: Shortness of breath COMPARISON: Chest radiograph 04/09/2023. IMPRESSION: Stable size of cardiomediastinal silhouette with pacemaker/AICD leadsoverlying the right atrium and right ventricle. Likely pulmonary vascularcongestion with subtle interstitial opacities in the lung bases, rightgreater than left, differential includes mild edema and atypicalinfectious/inflammatory process. No definite pleural effusion orpneumothorax. No acute bony abnormality. us John Ramirez MD GENERAL IMAGING Final Result * (ABNORMAL) TROPONIN I (04/06/2024 7:53 PM DATA WAREHOUSE MANAGER) Only the most recent of2 resultswithin the time period is included. Pathologist [facility] TROPONIN I KELLI 0.043(HH) <0.030 ng/mL 04/06/2024 8:31 PM DATA WAREHOUSE MANAGER [facility] Blood BLOOD SPECIMEN / Unknown Venipuncture / Unknown 04/06/2024 7:53 PM DATA WAREHOUSE MANAGER 04/06/2024 7:59 PM DATA WAREHOUSE MANAGER us John Ramirez MD CHEMISTRY Final Result Performing Organization Address [facility]/State/ZIP Co de Phone Number [place] [address] [place] [address], * BEDSIDE US STUDY ARCHIVE (04/06/2024 3:07 PM DATA WAREHOUSE MANAGER) Narrative Charly Monroe MD - 04/06/2024 3:07 PM DATA WAREHOUSE MANAGER Jun Mar MD 04/06/2024 3:08 PM BEDSIDE US STUDY ARCHIVE Performed by: Jun Mar MD Authorized by: Jun Mar MD Date/Time: 04/06/2024 3:07 PM Indication/Diagnosis: CHF Left Ventricle: LV Function: severely reduced LV Size: increased Right Ventricle: RV Function: hyperdynamic RV Size: small Pericardial Effusion: Pericardial Effusion Size: small us Jun Mar MD PROCEDURE ORD Final Result * (ABNORMAL) CBC WITH AUTO DIFFERENTIAL (04/06/2024 2:45 PM DATA WAREHOUSE MANAGER) [facility] WHITE BLOOD COUNT 12.6 4.5 - 13.5 thou/cu mm 04/06/2024 3:10 PM DATA WAREHOUSE MANAGER [facility] RED BLOOD COUNT 4.39(L) 4.70 - 6.10 mil/cu mm 04/06/2024 3:10 PM [facility] HEMOGLOBIN 13.0(L) 13.5 - 17.5 g/dL 04/06/2024 3:10 PM [facility] HEMATOCRIT 39.5(L) 42.0 - 52.0 % 04/06/2024 3:10 PM [facility] MCV 90 80 - 94 fL 04/06/2024 3:10 PM [facility] MCH 29.6 27.0 - 31.0 pg 04/06/2024 3:10 PM [facility] MCHC 32.9(L) 33.0 - 36.0 g/dL 04/06/2024 3:10 PM [facility] RDW 17.4(H) 11.6 - 14.8 % 04/06/2024 3:10 PM [facility] PLATELET COUNT 341 130 - 400 thou/cu mm 04/06/2024 3:10 PM [facility] MPV 10.6(H) 7.4 - 10.4 fL 04/06/2024 3:10 PM [facility] NRBC 0.0 0.0 - 0.9 % 04/06/2024 3:10 PM [facility] % NEUT 85.1(H) 37.0 - 80.0 % 04/06/2024 3:10 PM [facility] % LYMPH 5.6(L) 10.0 - 50.0 % 04/06/2024 3:10 PM [facility] % MONO 6.8 0.0 - 12.0 % 04/06/2024 3:10 PM [facility] % EOS 0.6 0.0 - 7.0 % 04/06/2024 3:10 PM [facility] % BASO 0.4 0.0 - 2.5 % 04/06/2024 3:10 PM [facility] % IMMATURE GRAN (METAS,MYELOS,NV OS) 1.5 % 04/06/2024 3:10 PM [facility] ABSOLUTE NEUTROPHILS 10.7(H) 2.0 - 6.9 thou/cu mm 04/06/2024 3:10 PM DATA WAREHOUSE MANAGER [facility] ABSOLUTE LYMPHOCYTES 0.7 0.6 - 3.4 thou/cu mm 04/06/2024 3:10 PM DATA WAREHOUSE MANAGER [facility] ABSOLUTE MONOCYTES 0.9 0.0 - 1.0 thou/cu mm 04/06/2024 3:10 PM DATA WAREHOUSE MANAGER [facility] ABSOLUTE EOSINOPHILS 0.1 <=0.7 thou/cu mm 04/06/2024 3:10 PM DATA WAREHOUSE MANAGER [facility] ABSOLUTE BASOPHILS 0.1 <0.2 thou/cu mm 04/06/2024 3:10 PM DATA WAREHOUSE MANAGER [facility] ABSOLUTE IMMATURE GRANULOCYTES(MET ,MYELOS,PROS) 0.2 <0.3 thou/cu mm 04/06/2024 3:10 PM DATA WAREHOUSE MANAGER [facility] Blood BLOOD SPECIMEN / Unknown IV Start / Unknown 04/06/2024 2:45 PM DATA WAREHOUSE MANAGER 04/06/2024 3:00 PM DATA WAREHOUSE MANAGER Jun Mar MD HEMATOLOGY Final Result [facility] [address] [place] [address], * EXTRA TUBE GOLD/SST (04/06/2024 2:45 PM DATA WAREHOUSE MANAGER) Blood BLOOD SPECIMEN / Unknown Extra Tube / Unknown 04/06/2024 2:45 PM DATA WAREHOUSE MANAGER 04/06/2024 4:05 PM DATA WAREHOUSE MANAGER Charly Monroe MD LABORATORY Final Res ult [facility] [address] [place] [address], * TSH WITH REFLEX (04/06/2024 2:45 PM DATA WAREHOUSE MANAGER) TSH 3.73 0.35 - 4.94 uIU/mL 04/06/2024 3:43 PM DATA WAREHOUSE MANAGER [facility] Blood BLOOD SPECIMEN / Unknown IV Start / Unknown 04/06/2024 2:45 PM DATA WAREHOUSE MANAGER 04/06/2024 3:00 PM DATA WAREHOUSE MANAGER us Jun Mar MD CHEMISTRY Final Result Performing Organization Address City/[facility]/ZIP Co de Phone Number [place] [address] [place] [address], [place] [phone] * (ABNORMAL) BRAIN NATRIURETIC PEPTIDE (04/06/2024 2:45 PM DATA WAREHOUSE MANAGER) BRAIN JEANCARLOS PEPTIDE 993(H) <100 pg/mL 04/06/2024 3:30 PM DATA WAREHOUSE MANAGER [facility] Blood BLOOD SPECIMEN / Unknown IV Start / Unknown 04/06/2024 2:45 PM DATA WAREHOUSE MANAGER 04/06/2024 3:05 PM DATA WAREHOUSE MANAGER us Charly Monroe MD CHEMISTRY Final Res ult Performing Organization Address City/[facility]/ZIP Co de Phone Number [address] [place] [address], [place] [phone] * SLIDE REVIEW (04/06/2024 2:45 PM DATA WAREHOUSE MANAGER) POIKILOCYTOSIS 1+ 04/06/2024 3:35 PM DATA WAREHOUSE MANAGER [facility] POLYCHROMASIA 1+ 04/06/2024 3:35 PM DATA WAREHOUSE MANAGER [facility] MORPHOLOGY COMMENT Ovalocytes Present 04/06/2024 3:35 PM DATA WAREHOUSE MANAGER [facility] MORPHOLOGY COMMENT Stomatocytes Present 04/06/2024 3:35 PM DATA WAREHOUSE MANAGER [facility] PLT COMMENT Adequate 04/06/2024 3:35 PM DATA WAREHOUSE MANAGER [facility] Blood BLOOD SPECIMEN / Unknown IV Start / Unknown 04/06/2024 2:45 PM DATA WAREHOUSE MANAGER 04/06/2024 3:00 PM DATA WAREHOUSE MANAGER us Jun Mar MD LABORATORY Final Result Performing Organization Address City/[facility]/ZIP Co de Phone [place] [address], * (ABNORMAL) Heparin Level ( aka XA) (04/06/2024 2:45 PM DATA WAREHOUSE MANAGER) HEPARIN LEVEL <0.04(LL) 0.32 - 0.63 U/mL 04/06/2024 7:11 PM DATA WAREHOUSE MANAGER [facility] Blood BLOOD SPECIMEN / Unknown IV Start / Unknown 04/06/2024 2:45 PM DATA WAREHOUSE MANAGER 04/06/2024 6:09 PM DATA WAREHOUSE MANAGER us Jun Mar MD HEMATOLOGY Final Result [address] [place] [address], * APTT (04/06/2024 2:45 PM DATA WAREHOUSE MANAGER) APTT 28 25 - 37 sec 04/06/2024 6:20 PM DATA WAREHOUSE MANAGER [facility] Blood BLOOD SPECIMEN / Unknown IV Start / Unknown 04/06/2024 2:45 PM DATA WAREHOUSE MANAGER 04/06/2024 6:09 PM DATA WAREHOUSE MANAGER Narrative [facility] - 04/06/2024 6:20 PM DATA WAREHOUSE MANAGER Therapeutic Range 64-83 seconds. us Jun Mar MD HEMATOLOGY Final Result [address] [place] [address], * SCAN-CARDIAC STRIP (04/06/2024 12:00 AM DATA WAREHOUSE MANAGER) Narrative 04/06/2024 12:00 AM DATA WAREHOUSE MANAGER Ordered by an unspecified provider. Other Clinical Staff OTHER Final Resul t * SCAN-CARDIAC STRIP (04/06/2024 12:00 AM DATA WAREHOUSE MANAGER) Narrative 04/06/2024 12:00 AM DATA WAREHOUSE MANAGER Ordered by an unspecified provider. Other Clinical Staff OTHER Final Resul t * SCAN-CARDIAC STRIP (03/22/2024 12:00 AM DATA WAREHOUSE MANAGER) Narrative 03/22/2024 12:00 AM DATA WAREHOUSE MANAGER Ordered by an unspecified provider. us Other Clinical Staff OTHER Final Resul t * SCAN-CARDIAC STRIP (03/15/2024 12:00 AM DATA WAREHOUSE MANAGER) Narrative 03/15/2024 12:00 AM DATA WAREHOUSE MANAGER Ordered by an unspecified provider. us Other Clinical Staff OTHER Final Resul t * SCAN-CARDIAC STRIP (03/08/2024 12:00 AM DATA WAREHOUSE MANAGER) Narrative 03/08/2024 12:00 AM DATA WAREHOUSE MANAGER Ordered by an unspecified provider. Other Clinical Staff OTHER Final Resul t * SCAN-CARDIAC STRIP (03/01/2024 12:00 AM DATA WAREHOUSE MANAGER) Narrative 03/01/2024 12:00 AM DATA WAREHOUSE MANAGER Ordered by an unspecified provider. us Other Clinical Staff OTHER Final Resul t * SCAN-CARDIAC STRIP (03/01/2024 12:00 AM DATA WAREHOUSE MANAGER) Narrative 03/01/2024 12:00 AM DATA WAREHOUSE MANAGER Ordered by an unspecified provider. Other Clinical Staff OTHER Final Resul t * SCAN-CARDIAC STRIP (03/01/2024 12:00 AM DATA WAREHOUSE MANAGER) Narrative 03/01/2024 12:00 AM DATA WAREHOUSE MANAGER Ordered by an unspecified provider. us Other Clinical Staff OTHER Final Resul t * SCAN-CARDIAC STRIP (03/01/2024 12:00 AM DATA WAREHOUSE MANAGER) Narrative 03/01/2024 12:00 AM DATA WAREHOUSE MANAGER Ordered by an unspecified provider. us Other Clinical Staff OTHER Final Resul t * CT ABDOMEN PELVIS WO (01/16/2024 4:53 AM DATA WAREHOUSE MANAGER) Anatomical Region Laterality Modality Abdomen, Pelvis, AORTA, LIVER, SPLEEN Computed Tomography 01/16/2024 4:53 AM DATA WAREHOUSE MANAGER Impressions 01/16/2024 5:21 AM DATA WAREHOUSE MANAGER 1. No obstructing ureteral or bladder calculi. No urinary collecting system dilatation or hydronephrosis. Mild dilatation distal left ureter proximal to the left UVJ. Recommend correlation with UA. If there is abnormal urine cytology, consider further evaluation to evaluate for any underlying obstruction of the distal left ureter related to an underlying mass. This can be evaluated with CT urogram. 2. Colonic diverticulosis. 3. Moderate fat-containing umbilical hernia. Narrative 01/16/2024 5:21 AM DATA WAREHOUSE MANAGER For Patients: As a result of the Cures Act, medical imaging exams and procedure reports are released immediately into your electronic medical record. You may view this report before your referring provider. If you have questions, please contact your health care provider. EXAM: CT ABDOMEN PELVIS WO LOCATION: [facility] DATE: 01/16/2024 INDICATION: Abdominal pain, acute, nonlocalized. Periumbilical abdominal pain with nausea and vomiting. COMPARISON: 12/18/2023, 12/20/2021 TECHNIQUE: CT scan of the abdomen and pelvis was performed without IV contrast. Multiplanar reformats were obtained. Dose reduction techniques were used. CONTRAST: None. FINDINGS: LOWER CHEST: Cardiac pacemaker wires. Mild cardiac enlargement. Minimal atelectasis right lung base. Minor emphysema. HEPATOBILIARY: No calcified gallstones or biliary dilatation. No overt hepatic abnormality. PANCREAS: Normal. SPLEEN: Normal. GENITOURINARY/ADRENAL GLANDS: Adrenal glands unremarkable. Dilatation distal left ureter just proximal to the left UVJ. No obstructing ureteral calculi. Mild bilateral renal atrophy. Exophytic low-attenuation renal lesions bilaterally most compatible with cysts, no follow-up. No overt bladder abnormality. Moderate prostate enlargement. GASTROINTESTINAL: No bowel obstruction or inflammatory change. Colonic diverticulosis. LYMPH NODES: No lymphadenopathy. VASCULATURE: Normal caliber aorta. Moderate vascular calcification. PELVIC ORGANS: Moderate prostate enlargement. No free fluid. MUSCULOSKELETAL: Fat-containing umbilical hernia. Degenerative disc changes in the spine. Procedure Note Jack Gonzalez MD - 01/16/2024 For Patients: As a result of the Cures Act, medical imagingexams and procedure reports are released immediately into your electronicmedical record. You may view this report before your referring provider.If you have questions, please contact your health care provider. EXAM: CT ABDOMEN PELVIS WO LOCATION: [facility] DATE: 01/16/2024 INDICATION: Abdominal pain, acute, nonlocalized. Periumbilical abdominalpain with nausea and vomiting. COMPARISON: 12/18/2023, 12/20/2021 TECHNIQUE: CT scan of the abdomen and pelvis was performed without IVcontrast. Multiplanar reformats were obtained. Dose reduction techniqueswere used. CONTRAST: None. FINDINGS: LOWER CHEST: Cardiac pacemaker wires. Mild cardiac enlargement. Minimalatelectasis right lung base. Minor emphysema. HEPATOBILIARY: No calcified gallstones or biliary dilatation. No overthepatic abnormality. PANCREAS: Normal. SPLEEN: Normal. GENITOURINARY/ADRENAL GLANDS: Adrenal glands unremarkable. Dilatationdistal left ureter just proximal to the left UVJ. No obstructing ureteralcalculi. Mild bilateral renal atrophy. Exophytic low-attenuation renallesions bilaterally most compatible with cysts, no follow-up. No overtbladder abnormality. Moderate prostate enlargement. GASTROINTESTINAL: No bowel obstruction or inflammatory change. Colonicdiverticulosis. LYMPH NODES: No lymphadenopathy. VASCULATURE: Normal caliber aorta. Moderate vascular calcification. PELVIC ORGANS: Moderate prostate enlargement. No free fluid. MUSCULOSKELETAL: Fat-containing umbilical hernia. Degenerative discchanges in the spine. IMPRESSION: 1. No obstructing ureteral or bladder calculi. No urinary collectingsystem dilatation or hydronephrosis. Mild dilatation distal left ureterproximal to the left UVJ. Recommend correlation with UA. If there isabnormal urine cytology, consider further evaluation to evaluate for anyunderlying obstruction of the distal left ureter related to an underlyingmass. This can be evaluated with CT urogram. 2. Colonic diverticulosis. 3. Moderate fat-containing umbilical hernia. us Lucas Francois MD CT Final Result * (ABNORMAL) LIPID PANEL W REFLEX MEASURED LDL (11/20/2023 1:57 PM CDT) CHOLESTEROL,TOTAL 105 <=200 mg/dL 11/20/2023 3:06 PM CDT [facility] TRIGLYCERIDES 103 <150 mg/dL 11/20/2023 3:06 PM CDT [facility] HDL CHOLESTEROL 33(L) >40 mg/dL 3:06 PM CDT [facility] CHOL/HDL RATIO 3.18 <=4.00 11/20/2023 3:06 PM CDT [facility] LDL CHOLESTEROL 51 <=130 mg/dL 11/20/2023 3:06 PM CDT [facility] PATIENT STATUS NON-FASTI NG 11/20/2023 3:06 PM CDT [facility] Blood BLOOD SPECIMEN / Unknown Venipuncture / Unknown 11/20/2023 1:57 PM CDT 11/20/2023 2:09 PM CDT us Shana Lozano DO CHEMISTRY Final Result [facility] [address] [place] [address], [place] [phone] * CT CHEST SCREENING LOW DOSE WO CONTRAST (08/07/2023 10:24 AM CDT) Anatomical Region Laterality Modality Computed Tomogra phy 08/07/2023 10:2 4 AM CDT Impressions 08/07/2023 10:58 AM CDT 1. Negative for lung cancer screening purposes. LungRADS CATEGORY: 2 - Benign appearance or behavior (<1% risk of malignancy) -Perifissural nodules(s): <10 mm -Solid nodule(s): <6 mm on baseline screening; or new nodule <4 mm -Subsolid nodule(s): <6 mm on baseline screening -Ground glass nodule(s): <30 mm; or greater than or equal to 30 mm and unchanged or slowly growing - Category 3 or 4 nodules that are unchanged for greater than or equal to 3 months RADIOLOGIST RECOMMENDATION: Continue annual screening with low-dose CT chest in 12 months. Narrative 08/07/2023 10:58 AM CDT For Patients: As a result of the Cures Act, medical imaging exams and procedure reports are released immediately into your electronic medical record. You may view this report before your referring provider. If you have questions, please contact your health care provider. EXAM: LOW DOSE LUNG CANCER SCREENING CT CHEST LOCATION: [facility] DATE: 08/07/2023 INDICATION: Lung cancer screening. History of smoking. High risk patient. COMPARISON: 06/16/2022. TECHNIQUE: Low-dose lung cancer screening non-contrast CT chest. Dose reduction techniques were used. FINDINGS: NODULES: 3 mm right lower lobe image 80 of series 3, stable. Linear 4 mm right lower lobe image 79, stable 2 mm subpleural left lower lobe image 84, stable previous 4 mm nodule seen along the right minor fissure is no longer identified. No new or enlarging nodules or masses. LUNGS AND PLEURA: Mild emphysema. No consolidation, pneumothorax or pleural effusion. Similar subpleural scarring in both lung bases. MEDIASTINUM: No lymphadenopathy. No pericardial effusion. Borderline dilatation of the main pulmonary artery is stable. Cardiac pacemaker with leads over the right atrium and right ventricle. CORONARY ARTERY CALCIFICATION: Previous intervention. LIMITED UPPER ABDOMEN: Normal. MUSCULOSKELETAL: Degenerative change in the spine, sternoclavicular joints and shoulders Procedure Note Demetris Hughes MD - 08/07/2023 For Patients: As a result of the Cures Act, medical imagingexams and procedure reports are released immediately into your electronicmedical record. You may view this report before your referring provider.If you have questions, please contact your health care provider. EXAM: LOW DOSE LUNG CANCER SCREENING CT CHEST LOCATION: [facility] DATE: 08/07/2023 INDICATION: Lung cancer screening. History of smoking. High riskpatient. COMPARISON: 06/16/2022. TECHNIQUE: Low-dose lung cancer screening non-contrast CT chest. Dosereduction techniques were used. FINDINGS: NODULES: 3 mm right lower lobe image 80 of series 3, stable. Linear 4 mm right lower lobe image 79, stable 2 mm subpleural left lower lobe image 84, stable previous 4 mm nodule seen along the right minor fissure is no longeridentified. No new or enlarging nodules or masses. LUNGS AND PLEURA: Mild emphysema. No consolidation, pneumothorax orpleural effusion. Similar subpleural scarring in both lung bases. MEDIASTINUM: No lymphadenopathy. No pericardial effusion. Borderlinedilatation of the main pulmonary artery is stable. Cardiac pacemaker withleads over the right atrium and right ventricle. CORONARY ARTERY CALCIFICATION: Previous intervention. LIMITED UPPER ABDOMEN: Normal. MUSCULOSKELETAL: Degenerative change in the spine, sternoclavicular jointsand shoulders IMPRESSION: 1. Negative for lung cancer screening purposes. LungRADS CATEGORY: 2 - Benign appearance or behavior (<1% risk ofmalignancy) -Perifissural nodules(s): <10 mm -Solid nodule(s): <6 mm onbaseline screening; or new nodule <4 mm -Subsolid nodule(s): <6 mm onbaseline screening -Ground glass nodule(s): <30 mm; or greater than orequal to 30 mm and unchanged or slowly growing - Category 3 or 4 nodulesthat are unchanged for greater than or equal to 3 months RADIOLOGIST RECOMMENDATION: Continue annual screening with low-dose CTchest in [address] Final Result * ANTI HCV (06/11/2022 2:16 PM CDT) HEPATITIS C ANTIBODY Non-Reacti ve Non-React ilsa 06/11/2022 4:14 PM CDT [facility] Comment:Antibodies to HCV no t detected; does not exclude the possibility of exposure to HCV. Blood BLOOD SPECIMEN / Unknown Venipuncture / Unknown 06/11/2022 2:16 PM CDT 06/11/2022 2:17 PM CDT Shananicolas Lozano DO SEND OUTS Final Result Performing Organization Address [facility] Co de Phone Number [address] [place] [address], [place] [phone] * HM COLONOSCOPY (08/14/2011) COLONOSCOPY Done [facility] 08/14/2011 Doctor Unknown HEALTH MAINT RESULTS Final Resul t Performing Organization Address [facility] Co de Phone Number [facility] [address] [place] [address], [place] [phone] from Last 3 Months or Most Recently Relevant to Health Maintenance Insurance [facility] DUAL COMPLETE MEDICARE PART A HB ONLY [facility] MR [id number] [id number] [facility] PPS Advance Directives Documents on File Type Date Recorded Patient Off Premise Service Representative Expl anation Healthcare Directive 04/20/2024 5:43 AM Healthcare Directive 04/09/2024 025 * DNR (Latest Code Status on File) Date Activated Date Inactivated Comments 04/26/2024 5:00 AM POLST availabl e in residence reviewed and validated to match our conversation today * DNR Date Activated Date Inactivated Comments 04/19/2024 4:39 PM 04/21/2024 9:09 PM DNR/DNI, tho ugh to leave ICD on at this time. 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
--- NOTE | 2024-05-15 21:34 | ED.NURSE ---
Gave Tdap upper left deltoid during ER during visit. Lot #[id number], Exp . Pt given Tdap handout on vaccines as well. No further questions for this nurse.
== END 2024-05-15 21:40 | disposition home or self-care (01) ==
PROVIDERS: Emergency Provider Family Medicine; PCP Family Medicine
DX: S61.412A Laceration without foreign body of left hand, initial encounter (principal); Z79.01 Long term (current) use of anticoagulants
CPT/HCPCS: 99282; 99283

== ENCOUNTER 2024-05-16 14:10 | Outpatient (CLI) | payer MEDICARE, SELFPAY | END 2024-05-16 14:11 | disposition home or self-care (01) | LOC: AMB 05-17 15:19 | PROVIDERS: PCP Family Medicine; Visit Provider Internal Medicine | DX: R42 Dizziness and giddiness (principal) | CPT/HCPCS: A0425; A0427 ==

== ENCOUNTER 2024-05-16 14:51 | Observation (INO) | payer MEDICARE, SELFPAY ==
[2024-05-16] VITALS (13 sets, daily range): BP systolic 110–124; BP diastolic 78–86; PULSE 60–70; RESP 16–18; TEMP 36.1–36.7; O2SAT 86–100; BMI 26.6; BMI 26.7
--- OUTSIDE RECORDS SUMMARY | 2024-05-16 14:54 | XMS_ITS | Clinical Summary ---
Author Organization [facility] Address [address] [place] [id number] Care Team Providers Care Outreach Representative Name Role Phone Fausto Liberty Ion Jones Unavailable Sadi Paul MD Primary [...] before meals. 90 Tablet 025 2:46 PM CONTENT MANAGEMENT CONSULTANT 2024 Active pramipexole (MIRAPEX) 0.25 mg tabletIndications:Rest less leg Take one-half Tablet (0.125 mg) by mouth at bedtime. 30 Tablet 025 2:46 PM CONTENT MANAGEMENT CONSULTANT 2024 Active sennosides (SENNA) 8.6 mg tabletIndications:Othe r constipation Take 1 to 2 Tablets (8.6-17.2 mg) by mouth two times daily. 60 Tablet 025 2:46 PM CONTENT MANAGEMENT CONSULTANT 2024 Active warfarin (COUMADIN) 1 mg tabletIndications:Atri al fibrillation with rapid ventricular response (HC) Take 1 Tablet (1 mg) by mouth once daily. Take 1mg daily. INR check on Sunday 04/23. Further dosing instructions pending INR value at that time. 30 Tablet 025 2:46 PM CONTENT MANAGEMENT CONSULTANT 2024 Active midodrine (PROAMATINE) 2.5 mg tabletIndications:Hypo tension, unspecified hypotension type Take 1 tablet (2.5mg) by mouth three times daily (at 8AM, 12PM, and 4PM) 90 Tablet 025 2:46 PM CONTENT MANAGEMENT CONSULTANT 2024 Active amiodarone (CORDARONE) 200 mg tabletIndications:Atri al fibrillation with rapid ventricular response (HC) Take 1 tablet (200 mg) by mouth twice daily. Then on 05/02/24 decrease to 200 mg once daily 90 Tablet 1 025 2:46 PM CONTENT MANAGEMENT CONSULTANT 2024 Active torsemide (DEMADEX) 20 mg tabletIndications:Acut e on chronic systolic and diastolic heart failure, NYHA class 3 (HC) Take one tablet by mouth as needed for weight gain of 3 lb in 1 day or 5 lb in 1 week 30 Tablet 2 025 5:30 PM CONTENT MANAGEMENT CONSULTANT 2024 Active atorvastatin (LIPITOR) 40 mg tabletIndications:Pure hypercholesterolemia Take 1 Tablet (40 mg) by mouth once daily. 30 Tablet 3 025 5:30 PM CONTENT MANAGEMENT CONSULTANT 2024 Active WalkerIndications:CHF (congestive heart failure), NYHA [...] Discontinued( *IP Discontinued) allopurinoL (ZYLOPRIM) 100 mg tabletIndications:Flight Agent rika gout of foot, unspecified cause, unspecified [...] 75 mg tabletIndications:Daniele nary artery disease involving [place] coronary artery of [place] heart without angina pectoris TAKE 1 TABLET [...] health clinician.] 60 Tablet 025 5:30 PM CONTENT MANAGEMENT CONSULTANT 04/26 Discontinued( *Allergic/Adv erse Rxn/Side Effects) amiodarone [...] and unspecified hyperlipidemia 05/26/2013 Coronary atherosclerosis of [place] coronary arianne ry 05/26/2013 Other B-complex deficiencies 02/11/2013 Regional enteritis of large intestine 10/22/2011 Type II or unspecified type diabetes mellitus without mention of complication, uncontrolled 02/14/2011 Acute on chronic systolic heart failure Resolved Problems Problem Noted Date Diagnosed Date Resolved Date Cellulitis and abscess of unspecified site 03/13/2013 03/17/2017 Coronary atherosclerosis of unspecified type of vessel, [place] or graft 02/11/2013 03/17/2017 Chest pain, unspecified 01/19/201303/03 Acute bronchitis 06/01/2012 03/17/2017 Acute conjunctivitis, unspecified 05/01/2012 03/17/2017 Other and unspecified noninf ectious gastroenteritis and colitis(558.9) 08/28/201103/17 Leukocytosis, unspecified 02/14/2011 Blood in stool 02/14/2011 03/17/2017 Acute gastritis without mention of hemorrhage 02/12/2003/17/2017 Encounters Date Type Department Care Team Description 05/15/19 Travel 05/15/19 [facility] [address] [place] [address] Monisha Yo, PARIKH CARE COORDINATION 05/14/19 4:00 PM CDT [facility] [address] [place] [phone] Joceline Edouard WOUND CARE PHYSICIAN - HOME VISIT 05/14/19 1:00 PM CDT [facility] [address] [place] [phone] Valentina Riley, RN SN - LONG VISIT (>90 MINUTES) 05/14/19 Telephone [facility] [address] [place] [phone] Valentina Riley, silverware buffing machine operator 05/12/19 10:30 AM CDT [facility] [address] [place] [phone] Nicolas Sanz, PT PT - HOME VISIT 05/12/19 25 [facility] [address] [place] [phone] Edis Camargo, PHOTOGRAPHER MODEL CARE COORDINATION 05/12/19 Travel 05/11/19 3:00 PM CDT [facility] [address] [place] [address] Joceline Edouard WOUND CARE PHYSICIAN - HOME VISIT 05/11/19 11:00 AM CDT [facility] [address] [place] [phone] Valentina Riley, RN SN - HOME VISIT 05/10/19 Nurse Triage [facility] [address] [place] [phone] Shana Lozano, DO Home Care; Diarrhea 05/08/19 4:00 PM CONTENT MANAGEMENT CONSULTANT [facility] [address] [place] [phone] Joceline Edouard WOUND CARE PHYSICIAN - HOME VISIT 05/08/19 10:30 AM CONTENT MANAGEMENT CONSULTANT [facility] [address] [place] [phone] Nicolas Sanz, PT PT - HOME VISIT 05/07/19 1:30 PM CONTENT MANAGEMENT CONSULTANT [facility] [address] [place] [phone] Valentina Riley, RN SN - LONG VISIT (>90 MINUTES) 05/07/19 Telephone [facility] [address] [phone] Valentina Riley, silverware buffing machine operator 05/05/19 1:30 PM CONTENT MANAGEMENT CONSULTANT [facility] [address] [place] [phone] Tiffany Fang, OT OT - HOME VISIT 05/05/19 10:30 AM CONTENT MANAGEMENT CONSULTANT [facility] [address] [place] [phone] Nicolas Sanz, PT PT - HOME VISIT 05/05/19 9:30 AM CONTENT MANAGEMENT CONSULTANT [facility] [address] [place] [phone] Joceline Edouard WOUND CARE PHYSICIAN - HOME VISIT 05/05/19 Travel 05/04/19 1:00 PM CONTENT MANAGEMENT CONSULTANT [facility] [address] [place] [phone] Valentina Riley, RN SN - LONG VISIT (>90 MINUTES) 05/04/19 8:30 AM CONTENT MANAGEMENT CONSULTANT [facility] [address] [facility] [address] [place] [address] Lauro Kendall MD Follow Up (POST HOSPITAL FOLLOW UP. LABS DONE PRIOR AT HOME HEALTH CARE./PT states feeling OK/no cardiac symptoms today /Establish care ) 05/04/19 Travel 04/30/19 2:30 PM CONTENT MANAGEMENT CONSULTANT [facility] [address] [place] [phone] Nicolas Sanz, PT PT - HOME VISIT 04/30/[address] [address] Shana Lozano, DO Weight (Weight gain) 04/30/19 Travel 04/29/19 12:30 PM CONTENT MANAGEMENT CONSULTANT [facility] [address] [place] [phone] Valentina Riley, AMELIA SN - LONG VISIT (>90 MINUTES) 04/29/19 25 [facility] [address] [place] [phone] Nicolas Sanz, PT CARE COORDINATION 04/28/19 3:00 PM CONTENT MANAGEMENT CONSULTANT [facility] [address] [place] [phone] Nicolas Sanz, PT PT - INITIAL ASSESSMENT 04/28/19 9:00 AM CONTENT MANAGEMENT CONSULTANT [facility] [address] [place] [phone] Anabella Rico, CIRCULATION ANALYST CIRCULATION ANALYST - HOME VISIT 02/26/20 25 Telephone [facility] [address] [place] [address] Shana Lozano, DO Questions (Verbal orders) 04/28/19 Travel 04/27/19 1:00 PM CONTENT MANAGEMENT CONSULTANT [facility] [address] [place] [phone] Tiffany Fang OT OT - INITIAL ASSESSMENT 04/27/19 11:30 AM CONTENT MANAGEMENT CONSULTANT Anticoagulation (warfarin) [facility] [address] [place] [address] Anticoagulation 04/27/19 9:40 AM CONTENT MANAGEMENT CONSULTANT Office Visit [facility] [address] [place] [address] Shana Lozano, DO Hospital F/U (04/06/2024-04/21/2024 Afib with RVR) 04/27/19 Travel 04/26/19 Telephone [place] [address] [place] [facility] [place] [address] Ignacio Willett MD Care Coordination (EP called and spoke with patient who reports that he moved in with his daughter [place] [facility]. EP confirmed with patient that he would be discharged from CR [facility]. Pt confirmed he would check out places near for CR as needed. ) 04/26/19 Orders Only [facility] [address] [place] [address] Shana Lozano DO <No scans attached> 04/26/19 Orders Only [facility] [address] [place] [address] Shana Lozano DO <No scans attached> 04/25/19 1:00 PM CONTENT MANAGEMENT CONSULTANT [facility] [address] [place] [phone] Staci Lara RN SN - HOME VISIT 04/23/19 1:45 PM CONTENT MANAGEMENT CONSULTANT [facility] [address] [place] [phone] Joceline Edouard WOUND CARE PHYSICIAN - HOME VISIT 04/23/19 25 1:00 PM CONTENT MANAGEMENT CONSULTANT [facility] [address] [place] [phone] Valentina Riley, AMELIA SN - LONG VISIT (>90 MINUTES) 04/23/19 25 9:00 AM CONTENT MANAGEMENT CONSULTANT Anticoagulation (warfarin) [facility] [address] [place] [address] Anticoagulation 04/23/19 25 Orders Only [facility] [address] [place] [address] Shana Lozano, Lab 04/23/19 25 Orders Only [facility] [address] [place] [phone] Shana Lozano DO Lab (Home care) 04/23/19 25 Orders Only [facility] [address] [facility] [address] [place] [phone] Abi Valdovinos, BACON SKIN LIFTER <No scans attached> 04/23/19 25 Travel 04/22/19 25 1:00 PM CONTENT MANAGEMENT CONSULTANT [facility] [address] [place] [phone] Valentina Riley RN SN IV - START OF CARE 04/22/19 25 Plan of Care Documentation [facility] [address] [place] [phone] 04/22/19 25 Telephone [facility] [address] [place] [phone] Valentina Riley RN Home Care 04/22/19 25 Telephone [facility] [address] [place] [address] Shana Lozano, Outside Order (WALKER / PORTABLE URINAL ) 04/22/19 25 [facility] [address] [place] [phone] Valentina Riley, AMELIA CARE COORDINATION 04/22/19 25 Telephone [facility] [address] [place] [address] Ignacio Willett MD Care Coordination (EP attempted phone contact with patient to touch base regarding cardiac rehab plan. No answer and VM is full. EP to follow-up as needed. ) 04/21/19 25 Telephone [facility] [address] [place] [address] Shana Lozano, DO Anticoagulation 04/19/19 25 Telephone [facility] [address] [place] [address] Shana Lozano, DO Questions (Home care orders ) 04/17/19 25 Refill [facility] [address] [place] [address] Ignacio Willett MD Refill Request (Isosorbide Mononitrate) 04/12/19 25 10:26 AM CONTENT MANAGEMENT CONSULTANT Anesthesia Event [facility] [address] [place] [address] Gerardo Garza MD Schlatter, Charles Patrick, SIGNAL MECHANIC 04/08/19 25 12:21 PM CONTENT MANAGEMENT CONSULTANT Anesthesia Event [facility] [address] [place] [address] Leonardo Campbell MD Reiter, Kyle, SIGNAL MECHANIC 04/08/19 25 11:26 AM CONTENT MANAGEMENT CONSULTANT - 04/08/19 25 12:12 PM CONTENT MANAGEMENT CONSULTANT Surgery [facility] [address] [place] [address] Chepe Francis MD ESOPHAGOGASTRODUODENOSCOPY WITH GASTRIC BIOPSY 04/06/19 25 11:21 PM CONTENT MANAGEMENT CONSULTANT - 04/21/19 25 5:55 PM CONTENT MANAGEMENT CONSULTANT Hospital Encounter [facility] [address] [place] [address] Associates, w General Medicine [facility], [facility] Parmjit Berrios MD Mrkvicka, MD [...] Discharge Disposition: Home Health 04/06/19 2:41 PM CONTENT MANAGEMENT CONSULTANT - 04/06/19 10:17 PM CONTENT MANAGEMENT CONSULTANT Emergency [address] [address] Charly Monroe MD Binder, Jacob A, MD Atrial fibrillation, unspecified type (HC) (Primary Dx); Hypotension, unspecified hypotension type; Lightheadedness; DAVID (acute kidney injury) Discharge Disposition: Short Term/[facility]PS Hosp 04/06/19 1:56 PM CONTENT MANAGEMENT CONSULTANT - 04/06/19 2:40 PM CONTENT MANAGEMENT CONSULTANT Hospital Encounter [address] [address] Ignacio Willett MD 04/06/19 Telephone [facility] [address] [place] [address] Lukasz Bright MD 04/06/19 25 Travel 04/05/19 Telephone [facility] [address] [place] [address] Ignacio Willett MD Atrial Fibrillation 03/30/19 25 1:47 PM CONTENT MANAGEMENT CONSULTANT - 03/30/19 25 11:59 PM CONTENT MANAGEMENT CONSULTANT Hospital Encounter [address] [address] Ignacio Willett MD 03/30/19 25 Travel 03/24/19 25 1:00 PM CONTENT MANAGEMENT CONSULTANT - 03/24/19 25 11:59 PM CONTENT MANAGEMENT CONSULTANT Hospital Encounter [address] [address] Ignacio Willett MD 03/24/19 25 Travel 03/22/19 25 1:00 PM CONTENT MANAGEMENT CONSULTANT - 03/22/19 25 11:59 PM CONTENT MANAGEMENT CONSULTANT Hospital Encounter [address] [address] Ignacio Willett MD 03/22/19 25 Travel 03/15/19 25 12:50 PM CONTENT MANAGEMENT CONSULTANT - 03/15/19 25 11:59 PM CONTENT MANAGEMENT CONSULTANT Hospital Encounter [address] [address] Ignacio Willett MD 03/15/19 25 Travel 03/10/19 25 12:50 PM CONTENT MANAGEMENT CONSULTANT - 03/10/19 25 11:59 PM CONTENT MANAGEMENT CONSULTANT Hospital Encounter [address] [address] Ignacio Willett MD 03/10/19 25 Travel 03/08/19 25 1:00 PM CONTENT MANAGEMENT CONSULTANT - 03/08/19 25 11:59 PM CONTENT MANAGEMENT CONSULTANT Hospital Encounter [address] [address] Ignacio Willett MD 03/08/19 25 Travel 03/01/20 24 1:29 PM CONTENT MANAGEMENT CONSULTANT - 03/01/20 24 11:59 PM CONTENT MANAGEMENT CONSULTANT Hospital Encounter [address] [address] Ignacio Willett MD Ischemic cardiomyopathy; CAD, multiple vessel; Dyslipidemia; Congestive heart failure, unspecified HF chronicity, unspecified heart failure type (HC) 03/01/20 24 Orders Only [address] [address] Ignacio Willett MD <No scans attached> from [...] on file Legal Sex Male 5:26 PM CONTENT MANAGEMENT CONSULTANT Gender Identity Not on file Sexual Orientation [...] 175.3 cm (5' 9) 05/03/2024 8:40 AM CONTENT MANAGEMENT CONSULTANT Body Mass Index 24.99 05/03/2024 8:40 AM CONTENT MANAGEMENT CONSULTANT Plan of Treatment Upcoming Encounters Date Type Department Care Team (Late st Contact Info) Description 05/17/2024 3:15 PM CDT [facility] [address] [place] [address] Joceline Edouard 05/18/2024 10:00 AM CDT [facility] [address] [place] [phone] Edis Camargo, PHOTOGRAPHER MODEL [address] [place] [address] 05/18/2024 11:00 AM CDT [facility] [address] [place] [phone] Valentina Riley, AMELIA 05/18/2024 4:00 PM CDT Home Care Visit [facility] [address] [place] [phone] FunmiMonisha porter Emy, PARIKH [address] [place] [address] 05/19/2024 10:30 AM CDT Home Care Visit [facility] [address] [place] [phone] Nicolas Sanz, PT [address] [place] [address] 05/20/2024 2:45 PM CDT Home Care Visit [facility] [address] [place] [phone] Joceline Edouard 05/21/2024 11:30 AM CDT Home Care Visit [facility] [address] [place] [phone] Valentina Riley RN 05/21/2024 1:15 PM CDT Home Care Visit [facility] [address] [place] [phone] Nicolas Sanz, PT [address] [place] [address] 05/24/2024 4:00 AM CDT Home Care Visit [facility] [address] [place] [phone] Valentina Riley, AMELIA 05/24/2024 2:30 PM CDT Home Care Visit [facility] [address] [place] [phone] Joceline Edouard 05/25/2024 5:00 AM CDT Home Care Visit [facility] [address] [place] [phone] AnnalisaAnselmo hernandezcurt, OT [address] [place] [address] 05/26/2024 3:00 AM CDT [facility] [address] [place] [phone] Nicolas Sanz, PT [address] [place] [address] 05/27/2024 4:00 AM CDT Home Care Visit [address] [phone] Joceline Edouard 05/28/2024 4:00 AM CDT Home Care Visit [address] [phone] Valentina Riley, AMELIA 05/31/2024 4:00 AM CDT Home Care Visit [address] [phone] Valentina Riley, AMELIA 06/01/2024 4:00 AM CDT Home Care Visit [address] [phone] Jax Edouardin L 06/03/2024 4:00 AM CDT Home Care Visit [address] [phone] Jax Edouardin L 06/03/2024 8:35 AM CDT Office Visit [facility] [place] [address] [place] [address] 06/04/2024 4:00 AM CDT Home Care Visit [address] [phone] Valentina Riley, RN 06/07/2024 4:00 AM CDT [facility] [address] [place] [address] Valentina Riley, AMELIA 06/08/2024 4:00 AM CDT [facility] [address] [place] [address] Jax Edouardin L 06/08/2024 8:30 AM CDT [facility] [address] [facility] [address] [place] [address] Lauro Kendall MD [address] [facility] [address] [place] [address] 06/10/2024 4:00 AM CDT [facility] [address] [place] [phone] Jax Edouardin L 06/11/2024 4:00 AM CDT [facility] [address] [place] [phone] Valentina Riley, AMELIA 06/14/2024 1:00 PM CDT [facility] [address] [place] [phone] Valentina Riley, RN 06/15/2024 4:00 AM CDT [facility] [address] [place] [phone] Jax Edouardin L 06/16/2024 1:00 PM CDT [facility] [address] [place] [phone] Valentina Riley, RN 06/17/2024 4:00 AM CDT [facility] [address] [place] [phone] Silke, Krin L 06/18/2024 1:00 PM CDT [facility]ointment [facility] [address] [place] [address] [place] [phone] Valentina Riley, RN Health Maintenance Due Date [...] Diagnosis Comments PROTIME-INR Routine 04/27/2024 10:26 AM CONTENT MANAGEMENT CONSULTANT Ischemic cardiomyopathy PRO-BNP Routine 04/27/2024 10:26 AM CONTENT MANAGEMENT CONSULTANT Acute systolic heart failure (HC) BASIC METABOLIC PANEL Routine 04/27/2024 10:26 AM CONTENT MANAGEMENT CONSULTANT Acute systolic heart failure (HC) PROTIME-INR Routine 04/23/2024 1:40 PM CONTENT MANAGEMENT CONSULTANT Atrial fibrillation with rapid ventricular response (HC) BASIC METABOLIC PANEL Early AM 04/21/2024 6:15 AM CONTENT MANAGEMENT CONSULTANT HEPATIC FUNCTION PANEL Early AM 6:15 AM CONTENT MANAGEMENT CONSULTANT PROTIME-INR Early AM 04/21/2024 6:15 AM CONTENT MANAGEMENT CONSULTANT SCAN-CARDIAC STRIP 04/20/2024 11:03 PM CONTENT MANAGEMENT CONSULTANT SCAN-CARDIAC STRIP 04/20/2024 7:32 PM CONTENT MANAGEMENT CONSULTANT CBC W PLT NO DIFF Early AM 04/20/2024 7:04 AM CONTENT MANAGEMENT CONSULTANT MAGNESIUM Early AM 04/20/2024 7:04 AM CONTENT MANAGEMENT CONSULTANT BASIC METABOLIC PANEL Early AM 04/20/2024 7:04 AM CONTENT MANAGEMENT CONSULTANT HEPATIC FUNCTION PANEL Early AM 7:04 AM CONTENT MANAGEMENT CONSULTANT PROTIME-INR Early AM 04/20/2024 7:04 AM CONTENT MANAGEMENT CONSULTANT O2 SATURATION,MEASURED Early AM 6:22 AM CONTENT MANAGEMENT CONSULTANT SCAN-CARDIAC STRIP 04/19/2024 7:23 PM CONTENT MANAGEMENT CONSULTANT SCAN-CARDIAC STRIP 04/19/2024 1:45 PM CONTENT MANAGEMENT CONSULTANT MAGNESIUM Early AM 04/19/2024 6:57 AM CONTENT MANAGEMENT CONSULTANT BASIC METABOLIC PANEL Early AM 04/19/2024 6:57 AM CONTENT MANAGEMENT CONSULTANT HEMOGLOBIN Early AM 04/19/2024 6:57 AM CONTENT MANAGEMENT CONSULTANT HEPATIC FUNCTION PANEL Early AM 6:57 AM CONTENT MANAGEMENT CONSULTANT PROTIME-INR Early AM 04/19/2024 6:57 AM CONTENT MANAGEMENT CONSULTANT O2 SATURATION,MEASURED Early AM 6:11 AM CONTENT MANAGEMENT CONSULTANT SCAN-CARDIAC STRIP 04/18/2024 10:04 PM CONTENT MANAGEMENT CONSULTANT SCAN-CARDIAC STRIP 04/18/2024 5:43 PM CONTENT MANAGEMENT CONSULTANT MAGNESIUM Timed 04/18/2024 4:33 PM CONTENT MANAGEMENT CONSULTANT POTASSIUM Timed 04/18/2024 12:45 PM CONTENT MANAGEMENT CONSULTANT O2 SATURATION,MEASURED Early AM 8:11 AM CONTENT MANAGEMENT CONSULTANT SCAN-CARDIAC STRIP 04/18/2024 7:46 AM CONTENT MANAGEMENT CONSULTANT MAGNESIUM Early AM 04/18/2024 7:07 AM CONTENT MANAGEMENT CONSULTANT BASIC METABOLIC PANEL Early AM 04/18/2024 7:07 AM CONTENT MANAGEMENT CONSULTANT HEPATIC FUNCTION PANEL Early AM 7:07 AM CONTENT MANAGEMENT CONSULTANT PROTIME-INR Early AM 04/18/2024 7:07 AM CONTENT MANAGEMENT CONSULTANT SCAN-CARDIAC STRIP 04/17/2024 11:49 PM CONTENT MANAGEMENT CONSULTANT SCAN-CARDIAC STRIP 04/17/2024 9:12 PM CONTENT MANAGEMENT CONSULTANT SCAN-CARDIAC STRIP 04/17/2024 7:41 AM CONTENT MANAGEMENT CONSULTANT MAGNESIUM RUSH 04/17/2024 7:26 AM CONTENT MANAGEMENT CONSULTANT BASIC METABOLIC PANEL Early AM 04/17/2024 7:26 AM CONTENT MANAGEMENT CONSULTANT HEPATIC FUNCTION PANEL Early AM 7:26 AM CONTENT MANAGEMENT CONSULTANT PROTIME-INR Early AM 04/17/2024 7:26 AM CONTENT MANAGEMENT CONSULTANT O2 SATURATION,MEASURED Early AM 6:35 AM CONTENT MANAGEMENT CONSULTANT SCAN-CARDIAC STRIP 04/16/2024 11:25 PM CONTENT MANAGEMENT CONSULTANT POTASSIUM Timed 04/16/2024 5:20 PM CONTENT MANAGEMENT CONSULTANT O2 SATURATION,MEASURED Timed 3:06 PM CONTENT MANAGEMENT CONSULTANT ALK PHOSPHATASE Today 04/16/2024 10:19 AM CONTENT MANAGEMENT CONSULTANT BILIRUBIN DIRECT Today 04/16/2024 10:19 AM CONTENT MANAGEMENT CONSULTANT ALT (SGPT) Today 04/16/2024 10:19 AM CONTENT MANAGEMENT CONSULTANT AST (SGOT) Today 04/16/2024 10:19 AM CONTENT MANAGEMENT CONSULTANT POTASSIUM Early AM 04/16/2024 10:19 AM CONTENT MANAGEMENT CONSULTANT SCAN-CARDIAC STRIP 04/16/2024 8:23 AM CONTENT MANAGEMENT CONSULTANT HEMOGLOBIN Early AM 04/16/2024 8:09 AM CONTENT MANAGEMENT CONSULTANT HEPATIC FUNCTION PANEL Early AM 8:09 AM CONTENT MANAGEMENT CONSULTANT CREATININE Early AM 04/16/2024 8:09 AM CONTENT MANAGEMENT CONSULTANT SODIUM Early AM 04/16/2024 8:09 AM CONTENT MANAGEMENT CONSULTANT MAGNESIUM Early AM 04/16/2024 8:09 AM CONTENT MANAGEMENT CONSULTANT O2 SATURATION,MEASURED Early AM 6:31 AM CONTENT MANAGEMENT CONSULTANT SCAN-CARDIAC STRIP 04/16/2024 1:03 AM CONTENT MANAGEMENT CONSULTANT SCAN-CARDIAC STRIP 04/15/2024 8:37 PM CONTENT MANAGEMENT CONSULTANT O2 SATURATION,MEASURED Today 6:58 PM CONTENT MANAGEMENT CONSULTANT POTASSIUM Timed 04/15/2024 5:26 PM CONTENT MANAGEMENT CONSULTANT EKG 12 LEAD [place]USH 04/15/2024 12:31 PM CONTENT MANAGEMENT CONSULTANT PROTIME-INR Early AM 04/15/2024 11:55 AM CONTENT MANAGEMENT CONSULTANT POTASSIUM Timed 04/15/2024 11:55 AM CONTENT MANAGEMENT CONSULTANT O2 SATURATION,MEASURED [place]USH 8:07 AM CONTENT MANAGEMENT CONSULTANT GLUCOSE METER Timed 04/15/2024 7:49 AM CONTENT MANAGEMENT CONSULTANT SCAN-CARDIAC STRIP 04/15/2024 7:26 AM CONTENT MANAGEMENT CONSULTANT HEMOGLOBIN Early AM 04/15/2024 6:38 AM CONTENT MANAGEMENT CONSULTANT BASIC METABOLIC PANEL Early AM 04/15/2024 6:38 AM CONTENT MANAGEMENT CONSULTANT MAGNESIUM Early AM 04/15/2024 6:38 AM CONTENT MANAGEMENT CONSULTANT HEPATIC FUNCTION PANEL Early AM 6:38 AM CONTENT MANAGEMENT CONSULTANT SCAN-CARDIAC STRIP 04/15/2024 3:06 AM CONTENT MANAGEMENT CONSULTANT SCAN-CARDIAC STRIP 04/14/2024 9:43 PM CONTENT MANAGEMENT CONSULTANT GLUCOSE METER Timed 04/14/2024 9:05 PM CONTENT MANAGEMENT CONSULTANT GLUCOSE METER Timed 04/14/2024 4:15 PM CONTENT MANAGEMENT CONSULTANT SCAN-CARDIAC STRIP 04/14/2024 3:27 PM CONTENT MANAGEMENT CONSULTANT ICD ANALYSIS DUAL WITHOUT REPROGRAM Routine 04/14/2024 3:13 PM CONTENT MANAGEMENT CONSULTANT EKG 12 LEAD RUSH 04/14/2024 1:25 PM CONTENT MANAGEMENT CONSULTANT GLUCOSE METER Timed 04/14/2024 12:04 PM CONTENT MANAGEMENT CONSULTANT POTASSIUM Timed 04/14/2024 11:49 AM CONTENT MANAGEMENT CONSULTANT GLUCOSE METER Timed 04/14/2024 7:53 AM CONTENT MANAGEMENT CONSULTANT SCAN-CARDIAC STRIP 04/14/2024 7:21 AM CONTENT MANAGEMENT CONSULTANT URINALYSIS MICROSCOPIC Timed 6:29 AM CONTENT MANAGEMENT CONSULTANT BASIC METABOLIC PANEL Early AM 04/14/2024 6:29 AM CONTENT MANAGEMENT CONSULTANT MAGNESIUM Early AM 04/14/2024 6:29 AM CONTENT MANAGEMENT CONSULTANT HEPATIC FUNCTION PANEL Early AM 6:29 AM CONTENT MANAGEMENT CONSULTANT O2 SATURATION,MEASURED Timed 6:29 AM CONTENT MANAGEMENT CONSULTANT UA W/ SEDIMENT EXAM REFLEXED PER CRITERIA Today 04/14/2024 6:29 AM CONTENT MANAGEMENT CONSULTANT GLUCOSE METER Timed 04/13/2024 9:23 PM CONTENT MANAGEMENT CONSULTANT SCAN-CARDIAC STRIP 04/13/2024 8:03 PM CONTENT MANAGEMENT CONSULTANT PICC LINE Routine 04/13/2024 7:28 PM CONTENT MANAGEMENT CONSULTANT INSERT PICC LINE Routine 04/13/2024 7:20 PM CONTENT MANAGEMENT CONSULTANT GLUCOSE METER Timed 04/13/2024 5:07 PM CONTENT MANAGEMENT CONSULTANT SCAN-CARDIAC STRIP 04/13/2024 3:12 PM CONTENT MANAGEMENT CONSULTANT ICD ANALYSIS DUAL WITHOUT REPROGRAM Routine 04/13/2024 1:57 PM CONTENT MANAGEMENT CONSULTANT EKG 12 LEAD Today 04/13/2024 8:25 AM CONTENT MANAGEMENT CONSULTANT GLUCOSE METER Timed 04/13/2024 7:41 AM CONTENT MANAGEMENT CONSULTANT SCAN-CARDIAC STRIP 04/13/2024 7:35 AM CONTENT MANAGEMENT CONSULTANT HEPATIC FUNCTION PANEL Early AM 6:43 AM CONTENT MANAGEMENT CONSULTANT HEMOGLOBIN Early AM 04/13/2024 6:43 AM CONTENT MANAGEMENT CONSULTANT BASIC METABOLIC PANEL Early AM 04/13/2024 6:43 AM CONTENT MANAGEMENT CONSULTANT GLUCOSE METER Timed 04/12/2024 9:16 PM CONTENT MANAGEMENT CONSULTANT GLUCOSE METER Timed 04/12/2024 6:39 PM CONTENT MANAGEMENT CONSULTANT COMPREHENSIVE BLOOD GAS MIXE D VENOUS Timed 04/12/2024 4:48 PM CONTENT MANAGEMENT CONSULTANT CVL OTHER PROCEDURE Routine 04/12/2024 4:09 PM CONTENT MANAGEMENT CONSULTANT Cardiovascular symptoms SCAN-CARDIAC STRIP 04/12/2024 3:27 PM CONTENT MANAGEMENT CONSULTANT US RENAL AND BLADDER COMPLETE Routine 2:51 PM CONTENT MANAGEMENT CONSULTANT GLUCOSE METER Timed 04/12/2024 11:55 AM CONTENT MANAGEMENT CONSULTANT ECHO NOEL WO CONTRAST W COLOR W LTD DOPPLER Routine 04/12/2024 10:52 AM CONTENT MANAGEMENT CONSULTANT EKG 12 LEAD Post Op 04/12/2024 10:49 AM CONTENT MANAGEMENT CONSULTANT EP OTHER PROCEDURE Routine 04/12/2024 10:48 AM CONTENT MANAGEMENT CONSULTANT GLUCOSE METER Timed 04/12/2024 7:30 AM CONTENT MANAGEMENT CONSULTANT HEPATIC FUNCTION PANEL RUSH 6:31 AM CONTENT MANAGEMENT CONSULTANT BASIC METABOLIC PANEL Early AM 04/12/2024 6:31 AM CONTENT MANAGEMENT CONSULTANT MAGNESIUM Early AM 04/12/2024 6:31 AM CONTENT MANAGEMENT CONSULTANT SCAN-CARDIAC STRIP 04/12/2024 3:46 AM CONTENT MANAGEMENT CONSULTANT SCAN-OPERATIVE/PROCEDURE REPORT 04/12/2024 12:00 AM CONTENT MANAGEMENT CONSULTANT GLUCOSE METER Timed 04/11/2024 9:47 PM CONTENT MANAGEMENT CONSULTANT SCAN-CARDIAC STRIP 04/11/2024 8:21 PM CONTENT MANAGEMENT CONSULTANT GLUCOSE METER Timed 04/11/2024 5:24 PM CONTENT MANAGEMENT CONSULTANT SCAN-CARDIAC STRIP 04/11/2024 4:18 PM CONTENT MANAGEMENT CONSULTANT GLUCOSE METER Timed 04/11/2024 11:31 AM CONTENT MANAGEMENT CONSULTANT HEMOGLOBIN Today 04/11/2024 10:12 AM CONTENT MANAGEMENT CONSULTANT MAGNESIUM RUSH 04/11/2024 10:12 AM CONTENT MANAGEMENT CONSULTANT BASIC METABOLIC PANEL Early AM 04/11/2024 10:12 AM CONTENT MANAGEMENT CONSULTANT SCAN-CARDIAC STRIP 04/11/2024 7:48 AM CONTENT MANAGEMENT CONSULTANT GLUCOSE METER Timed 04/11/2024 7:44 AM CONTENT MANAGEMENT CONSULTANT GLUCOSE METER Timed 04/10/2024 9:22 PM CONTENT MANAGEMENT CONSULTANT POTASSIUM Timed 04/10/2024 6:20 PM CONTENT MANAGEMENT CONSULTANT GLUCOSE METER Timed 04/10/2024 5:09 PM CONTENT MANAGEMENT CONSULTANT SCAN-CARDIAC STRIP 04/10/2024 4:04 PM CONTENT MANAGEMENT CONSULTANT POTASSIUM Timed 04/10/2024 1:24 PM CONTENT MANAGEMENT CONSULTANT GLUCOSE METER Timed 04/10/2024 12:37 PM CONTENT MANAGEMENT CONSULTANT SCAN-CARDIAC STRIP 04/10/2024 10:29 AM CONTENT MANAGEMENT CONSULTANT GLUCOSE METER Timed 04/10/2024 8:26 AM CONTENT MANAGEMENT CONSULTANT MAGNESIUM RUSH 04/10/2024 8:09 AM CONTENT MANAGEMENT CONSULTANT BASIC METABOLIC PANEL Early AM 04/10/2024 8:09 AM CONTENT MANAGEMENT CONSULTANT SCAN-CARDIAC STRIP 04/10/2024 5:01 AM CONTENT MANAGEMENT CONSULTANT GLUCOSE METER Timed 04/09/2024 9:07 PM CONTENT MANAGEMENT CONSULTANT POTASSIUM Timed 04/09/2024 7:56 PM CONTENT MANAGEMENT CONSULTANT SCAN-CARDIAC STRIP 04/09/2024 7:40 PM CONTENT MANAGEMENT CONSULTANT GLUCOSE METER Timed 04/09/2024 5:26 PM CONTENT MANAGEMENT CONSULTANT SCAN-CARDIAC STRIP 04/09/2024 3:40 PM CONTENT MANAGEMENT CONSULTANT GLUCOSE METER Timed 04/09/2024 8:14 AM CONTENT MANAGEMENT CONSULTANT BASIC METABOLIC PANEL Early AM 04/09/2024 8:10 AM CONTENT MANAGEMENT CONSULTANT GLUCOSE METER Timed 04/08/2024 9:15 PM CONTENT MANAGEMENT CONSULTANT GLUCOSE METER Timed 04/08/2024 4:52 PM CONTENT MANAGEMENT CONSULTANT POTASSIUM Timed 04/08/2024 2:45 PM CONTENT MANAGEMENT CONSULTANT GLUCOSE METER Timed 04/08/2024 1:00 PM CONTENT MANAGEMENT CONSULTANT PATH TISSUE EXAM Today 04/08/2024 12:39 PM CONTENT MANAGEMENT CONSULTANT ESOPHAGOGASTRODUODENOSCOPY W ITH BIOPSY 04/08/2024 12:13 PM CONTENT MANAGEMENT CONSULTANT melena GLUCOSE METER Timed 04/08/2024 11:09 AM CONTENT MANAGEMENT CONSULTANT ENDOSCOPY 04/08/2024 9:49 AM CONTENT MANAGEMENT CONSULTANT GLUCOSE METER Timed 04/08/2024 8:00 AM CONTENT MANAGEMENT CONSULTANT EXTRA TUBE BLUE Today 04/08/2024 6:45 AM CONTENT MANAGEMENT CONSULTANT EXTRA TUBE LAVENDER Today 04/08/2024 6:45 AM CONTENT MANAGEMENT CONSULTANT PRO-BNP Early AM 04/08/2024 6:45 AM CONTENT MANAGEMENT CONSULTANT BASIC METABOLIC PANEL Early AM 04/08/2024 6:45 AM CONTENT MANAGEMENT CONSULTANT SCAN-CARDIAC STRIP 04/07/2024 11:52 PM CONTENT MANAGEMENT CONSULTANT GLUCOSE METER Timed 04/07/2024 10:19 PM CONTENT MANAGEMENT CONSULTANT GLUCOSE METER Timed 04/07/2024 7:15 PM CONTENT MANAGEMENT CONSULTANT HEMOGLOBIN Timed 04/07/2024 6:10 PM CONTENT MANAGEMENT CONSULTANT DIGOXIN Timed 04/07/2024 1:50 PM CONTENT MANAGEMENT CONSULTANT HEMOGLOBIN Timed 04/07/2024 1:50 PM CONTENT MANAGEMENT CONSULTANT GLUCOSE METER Timed 04/07/2024 12:33 PM CONTENT MANAGEMENT CONSULTANT EKG 12 LEAD Routine 04/07/2024 10:01 AM CONTENT MANAGEMENT CONSULTANT URINALYSIS MICROSCOPIC Timed 9:48 AM CONTENT MANAGEMENT CONSULTANT UA W/ SEDIMENT EXAM REFLEXED PER CRITERIA Today 04/07/2024 9:48 AM CONTENT MANAGEMENT CONSULTANT COVID/FLU/RSV PANEL Today 04/07/2024 9:48 AM CONTENT MANAGEMENT CONSULTANT ICD ANALYSIS DUAL WITHOUT REPROGRAM Routine 04/07/2024 9:05 AM CONTENT MANAGEMENT CONSULTANT ECHO TTE LIMITED W CONTRAST W COLOR W DOPPLER Routine 04/07/2024 8:53 AM CONTENT MANAGEMENT CONSULTANT GLUCOSE METER Timed 04/07/2024 7:43 AM CONTENT MANAGEMENT CONSULTANT EXTRA TUBE BLUE Today 04/07/2024 6:23 AM CONTENT MANAGEMENT CONSULTANT LACTATE VENOUS Timed 04/07/2024 6:20 AM CONTENT MANAGEMENT CONSULTANT HEMOGLOBIN Timed 04/07/2024 6:20 AM CONTENT MANAGEMENT CONSULTANT MAGNESIUM Early AM 04/07/2024 6:20 AM CONTENT MANAGEMENT CONSULTANT SODIUM Early AM 04/07/2024 6:20 AM CONTENT MANAGEMENT CONSULTANT POTASSIUM Early AM 04/07/2024 6:20 AM CONTENT MANAGEMENT CONSULTANT CREATININE Early AM 04/07/2024 6:20 AM CONTENT MANAGEMENT CONSULTANT SCAN-CARDIAC STRIP 04/07/2024 5:29 AM CONTENT MANAGEMENT CONSULTANT SCAN-CARDIAC STRIP 04/07/2024 3:14 AM CONTENT MANAGEMENT CONSULTANT LACTATE VENOUS Timed 04/07/2024 2:58 AM CONTENT MANAGEMENT CONSULTANT GLUCOSE METER Timed 04/07/2024 1:49 AM CONTENT MANAGEMENT CONSULTANT TYPE & SCREEN Today 04/07/2024 12:39 AM CONTENT MANAGEMENT CONSULTANT FERRITIN RUSH 04/07/2024 12:39 AM CONTENT MANAGEMENT CONSULTANT IRON PLUS IRON BINDING CAP RUSH 04/07 12:39 AM CONTENT MANAGEMENT CONSULTANT RETICULOCYTES RUSH 04/07/2024 12:39 AM CONTENT MANAGEMENT CONSULTANT LACTATE VENOUS Today 04/07/2024 12:39 AM CONTENT MANAGEMENT CONSULTANT COMP METABOLIC PANEL STAT 04/07/2024 12:39 AM CONTENT MANAGEMENT CONSULTANT CBC W PLT NO DIFF STAT 04/07/2024 12:39 AM CONTENT MANAGEMENT CONSULTANT XR CHEST 1 VIEW PORTABLE STAT 025 8:19 PM CONTENT MANAGEMENT CONSULTANT TROPONIN I STAT 04/06/2024 7:53 PM CONTENT MANAGEMENT CONSULTANT BASIC METABOLIC PANEL STAT 04/06/2024 7:53 PM CONTENT MANAGEMENT CONSULTANT EXTRA TUBE LAVENDER Today 04/06/2024 3:55 PM CONTENT MANAGEMENT CONSULTANT HEPATIC FUNCTION PANEL STAT 3:55 PM CONTENT MANAGEMENT CONSULTANT BEDSIDE US STUDY ARCHIVE Routine 025 3:07 PM CONTENT MANAGEMENT CONSULTANT HEPARIN LEVEL STAT 04/06/2024 2:45 PM CONTENT MANAGEMENT CONSULTANT APTT STAT 04/06/2024 2:45 PM CONTENT MANAGEMENT CONSULTANT PROTIME-INR STAT 04/06/2024 2:45 PM CONTENT MANAGEMENT CONSULTANT EXTRA TUBE GOLD/SST Today 04/06/2024 2:45 PM CONTENT MANAGEMENT CONSULTANT EXTRA TUBE BLUE Today 04/06/2024 2:45 PM CONTENT MANAGEMENT CONSULTANT SLIDE REVIEW STAT 04/06/2024 2:45 PM CONTENT MANAGEMENT CONSULTANT BRAIN NATRIURETIC PEPTIDE STAT 2024 2:45 PM CONTENT MANAGEMENT CONSULTANT CBC WITH AUTO DIFFERENTIAL STAT 04/06 2:45 PM CONTENT MANAGEMENT CONSULTANT TROPONIN I STAT 04/06/2024 2:45 PM CONTENT MANAGEMENT CONSULTANT TSH WITH REFLEX STAT 04/06/2024 2:45 PM CONTENT MANAGEMENT CONSULTANT MAGNESIUM STAT 04/06/2024 2:45 PM CONTENT MANAGEMENT CONSULTANT BASIC METABOLIC PANEL STAT 04/06/2024 2:45 PM CONTENT MANAGEMENT CONSULTANT CBC WITH AUTO DIFFERENTIAL STAT 04/06 2:45 PM CONTENT MANAGEMENT CONSULTANT EKG 12 LEAD STAT 04/06/2024 2:35 PM CONTENT MANAGEMENT CONSULTANT SCAN-CARDIAC STRIP 04/06/2024 12:00 AM CONTENT MANAGEMENT CONSULTANT SCAN-CARDIAC STRIP 04/06/2024 12:00 AM CONTENT MANAGEMENT CONSULTANT SCAN-CARDIAC STRIP 03/22/2024 12:00 AM CONTENT MANAGEMENT CONSULTANT SCAN-CARDIAC STRIP 03/15/2024 12:00 AM CONTENT MANAGEMENT CONSULTANT SCAN-CARDIAC STRIP 03/08/2024 12:00 AM CONTENT MANAGEMENT CONSULTANT SCAN-CARDIAC STRIP 03/01/2024 12:00 AM CONTENT MANAGEMENT CONSULTANT SCAN-CARDIAC STRIP 03/01/2024 12:00 AM CONTENT MANAGEMENT CONSULTANT SCAN-CARDIAC STRIP 03/01/2024 12:00 AM CONTENT MANAGEMENT CONSULTANT SCAN-CARDIAC STRIP 03/01/2024 12:00 AM CONTENT MANAGEMENT CONSULTANT CT ABDOMEN PELVIS WO STAT 01/16/2024 4:53 AM CONTENT MANAGEMENT CONSULTANT LIPID PANEL W REFLEX MEASURE D LDL [...] Results * (ABNORMAL) PROTIME-INR (04/27/2024 10:26 AM CONTENT MANAGEMENT CONSULTANT) Only the most recent of9 resultswithin the time period is included. INR 2.4(H) 0.8 - 1.1 04/27/2024 11:18 AM CONTENT MANAGEMENT CONSULTANT [facility] Blood BLOOD SPECIMEN / Unknown Venipuncture / Unknown 04/27/2024 10:26 AM CONTENT MANAGEMENT CONSULTANT 04/27/2024 10:38 AM CONTENT MANAGEMENT CONSULTANT Shana Lozano DO HEMATOLOGY Final Result Performing Organization Address [facility]/State/[facility] Co de Phone Number [place] [address] [place] [address], * (ABNORMAL) PRO-BNP (04/27/2024 10:26 AM CONTENT MANAGEMENT CONSULTANT) Only the most recent of2 resultswithin the time period is included. PRO-BNP 11,954(H) <125 pg/mL 04/27/2024 4:02 PM [facility] Blood BLOOD SPECIMEN / Unknown Venipuncture / Unknown 04/27/2024 10:26 AM CONTENT MANAGEMENT CONSULTANT 04/27/2024 10:38 AM [facility] LABORATORY - 04/27/2024 4:02 PM CONTENT MANAGEMENT CONSULTANT The following cut-points have been suggested for [...] acute congestive heart failure. us Abi Valdovinos [facility] SEND OUTS Final Resu lt [facility] LAB[facility] [address] [place] [address], * (ABNORMAL) BASIC METABOLIC PANEL (04/27/2024 10:26 AM CONTENT MANAGEMENT CONSULTANT) Only the most recent of16 resultswithin the time period is included. SODIUM 135(L) 136 - 145 mmol/L 04/27/2024 11:34 AM [facility] POTASSIUM 4.3 3.5 - 5.1 mmol/L 04/27/2024 11:34 AM [facility] CHLORIDE 105 98 - 107 mmol/L 04/27/2024 11:34 AM [facility] CO2,TOTAL 17(L) 22 - 31 mmol/L 04/27/2024 11:34 AM [facility] ANION GAP 13 5 - 18 04/27/2024 11:34 AM [facility] GLUCOSE 110(H) 70 - 99 mg/dL 04/27/2024 11:34 AM [facility] CALCIUM 9.0 8.4 - 10.2 mg/dL 04/27/2024 11:34 AM [facility] BUN 25 8 - 25 mg/dL 04/27/2024 11:34 AM [facility] CREATININE 2.10(H) 0.72 - 1.25 mg/dL 04/27/2024 11:34 AM [facility] BUN/CREAT RATIO 12 10 - 20 11:34 AM [facility] eGFR 33(L) >90 mL/min/1.7 3m2 04/27/2024 11:34 AM [facility] Comment:As of 2021, eG FR is calculated by the CKD-EPI creatinine equation without race adjustment. eGFR can be influenced by muscle mass, exercise, and diet. The reported eGFR is an estimation only and is only applicable if the renal function is stable. Blood BLOOD SPECIMEN / Unknown Venipuncture / Unknown 04/27/2024 10:26 AM CONTENT MANAGEMENT CONSULTANT 04/27/2024 10:38 AM CONTENT MANAGEMENT CONSULTANT us Abi Valdovinos [facility] CHEMISTRY Final Resu lt [facility] [address] [place] [address], [place] [phone] * (ABNORMAL) Hepatic function panel AM (04/21/2024 6:15 AM CONTENT MANAGEMENT CONSULTANT) Only the most recent of11 resultswithin the time period is included. ALBUMIN 3.5(L) 4.0 - 4.9 g/dL 04/21/2024 6:57 AM [facility] TRAL LABORATORY PROTEIN,TOTAL 5.9(L) 6.0 - 8.0 g/dL 04/21/2024 6:57 AM [facility] TRAL LABORATORY BILIRUBIN,TOTAL 1.0 0.0 - 1.2 mg/dL 04/21/2024 6:57 AM [facility] TRAL LABOR[facility]ORY BILIRUBIN,DIRECT 0.5(H) 0.0 - 0.2 mg/dL 04/21/2024 6:57 AM CONTENT MANAGEMENT CONSULTANT [facility] TRAL LABORATORY BILIRUBIN,INDIRE CT 0.5 0.2 - 0.8 mg/dL 04/21/2024 6:57 AM [facility] TRAL LABORATORY ALK PHOSPHATASE 158(H) 40 - 129 IU/L 04/21/2024 6:57 AM CONTENT MANAGEMENT CONSULTANT [facility] TRAL LABORATORY ALT (SGPT) 48 10 - 50 IU/L 04/21/2024 6:57 AM [facility] AST (SGOT) 18 10 - 50 IU/L 04/21/2024 6:57 AM [facility] Blood BLOOD SPECIMEN / Unknown Venipuncture / Unknown 04/21/2024 6:15 AM CONTENT MANAGEMENT CONSULTANT 04/21/2024 6:29 AM CONTENT MANAGEMENT CONSULTANT us Lauro Kendall MD CHEMISTRY Final Res ult [facility] [address] [place] [address], [place] * SCAN-CARDIAC STRIP (04/20/2024 11:03 PM CONTENT MANAGEMENT CONSULTANT) us Scanner OTHER Final Result * SCAN-CARDIAC STRIP (04/20/2024 7:32 PM CONTENT MANAGEMENT CONSULTANT) us Scanner OTHER Final Result * (ABNORMAL) CBC (04/20/2024 7:04 AM CONTENT MANAGEMENT CONSULTANT) Only the most recent of2 resultswithin the time period is included. WHITE BLOOD COUNT 8.1 4.5 - 11.0 thou/cu mm 04/20/2024 7:31 AM CONTENT MANAGEMENT CONSULTANT [facility] LAB[facility] RED BLOOD COUNT 3.32(L) 4.30 - 5.90 mil/cu mm 04/20/2024 7:31 AM CONTENT MANAGEMENT CONSULTANT [facility] LAB[facility] HEMOGLOBIN 9.6(L) 13.5 - 17.5 g/dL 04/20/2024 7:31 AM CONTENT MANAGEMENT CONSULTANT [facility] TR[facility] LAB[facility]ORY HEMATOCRIT 30.3(L) 37.0 - 53.0 % 04/20/2024 7:31 AM CONTENT MANAGEMENT CONSULTANT [facility] LAB[facility] MCV 91 80 - 100 fL 04/20/2024 7:31 AM CONTENT MANAGEMENT CONSULTANT [facility] MCH 28.9 26.0 - 34.0 pg 04/20/2024 7:31 AM CONTENT MANAGEMENT CONSULTANT [facility] MCHC 31.7(L) 32.0 - 36.0 g/dL 04/20/2024 7:31 AM [facility] TR[facility] LAB[facility] RDW 18.9(H) 11.5 - 15.5 % 04/20/2024 7:31 AM CONTENT MANAGEMENT CONSULTANT [facility] LAB[facility] PLATELET COUNT 229 140 - 440 thou/cu mm 04/20/2024 7:31 AM CONTENT MANAGEMENT CONSULTANT [facility] MPV 10.9 6.5 - 11.0 fL 04/20/2024 7:31 AM CONTENT MANAGEMENT CONSULTANT [facility] LAB[facility] NRBC 0.2 % 04/20/2024 7:31 AM CONTENT MANAGEMENT CONSULTANT [facility] ABS NRBC 0.0 thou /cu mm 04/20/2024 7:31 AM [facility] Blood BLOOD SPECIMEN / Unknown Venipuncture / Unknown 04/20/2024 7:04 AM CONTENT MANAGEMENT CONSULTANT 04/20/2024 7:20 AM CONTENT MANAGEMENT CONSULTANT Madonna Hedrick MEAT DEPARTMENT MANAGER HEMATOLOGY Final Res ult Performing Organization Address City/[facility]/ZIP Co de Phone Number [facility] [address] [place] [phone], [place] * (ABNORMAL) Magnesium AM (04/20/2024 7:04 AM CONTENT MANAGEMENT CONSULTANT) Only the most recent of13 resultswithin the time period is included. MAGNESIUM 2.5(H) 1.6 - 2.4 mg/dL 04/20/2024 7:50 AM CONTENT MANAGEMENT CONSULTANT [facility] Blood BLOOD SPECIMEN / Unknown Venipuncture / Unknown 04/20/2024 7:04 AM CONTENT MANAGEMENT CONSULTANT 04/20/2024 7:20 AM CONTENT MANAGEMENT CONSULTANT Madonna Hedrick MEAT DEPARTMENT MANAGER CHEMISTRY Final Res ult Performing Organization Address City/[facility]/ZIP Co de Phone Number [facility] [address] [place] [phone], [place] * (ABNORMAL) O2 SATURATION,MEASURED (04/20/2024 6:22 AM CONTENT MANAGEMENT CONSULTANT) Only the most recent of9 resultswithin the time period is included. O2 SATURATION,MANISH SURED 55 % 04/20/2024 6:38 AM [facility] HEMOGLOBIN,BLO OD GAS 10.0(L) 13.5 - 17.5 g/dL 04/20/2024 6:38 AM CONTENT MANAGEMENT CONSULTANT [facility] TRAL LABORATORY SOURCE, O2M Venous 04/20/2024 6:38 AM CONTENT MANAGEMENT CONSULTANT [facility] Blood BLOOD SPECIMEN / Unknown Non-Lab Venipuncture / Unknown 04/20/2024 6:22 AM CONTENT MANAGEMENT CONSULTANT 04/20/2024 6:34 AM CONTENT MANAGEMENT CONSULTANT Narrative [facility] - 04/20/2024 6:38 AM CONTENT MANAGEMENT CONSULTANT Reference Range for: Arterial Source ([id number]) Non-Arterial Source ([id number]) us Marylou Currie NP CHEMISTRY Final R esult Performing Organization Address City/[facility]/ZIP Co de Phone Number [facility] [address] [address], [place] * SCAN-CARDIAC STRIP (04/19/2024 7:23 PM CONTENT MANAGEMENT CONSULTANT) us Scanner OTHER Final Result * SCAN-CARDIAC STRIP (04/19/2024 1:45 PM CONTENT MANAGEMENT CONSULTANT) us Scanner OTHER Final Result * (ABNORMAL) Hemoglobin AM (04/19/2024 6:57 AM CONTENT MANAGEMENT CONSULTANT) Only the most recent of8 resultswithin the time period is included. HEMOGLOBIN 10.3(L) 13.5 - 17.5 g/dL 04/19/2024 8:14 AM CONTENT MANAGEMENT CONSULTANT [facility] MCV 93 80 - 100 fL 04/19/2024 8:14 AM CONTENT MANAGEMENT CONSULTANT [facility] Blood BLOOD SPECIMEN / Unknown Non-Lab Venipuncture / Unknown 04/19/2024 6:57 AM CONTENT MANAGEMENT CONSULTANT 04/19/2024 8:09 AM CONTENT MANAGEMENT CONSULTANT us Deborah Lipscomb MD HEMATOLOGY Final R esult Performing Organization Address City/[facility]/ZIP Co de Phone Number [facility] [address] [address], [place] * SCAN-CARDIAC STRIP (04/18/2024 10:04 PM CONTENT MANAGEMENT CONSULTANT) us Scanner OTHER Final Result * SCAN-CARDIAC STRIP (04/18/2024 5:43 PM CONTENT MANAGEMENT CONSULTANT) us Scanner OTHER Final Result * POTASSIUM (04/18/2024 12:45 PM CONTENT MANAGEMENT CONSULTANT) Only the most recent of11 resultswithin the time period is included. POTASSIUM 3.9 3.5 - 5.1 mmol/L 04/18/2024 1:14 PM CONTENT MANAGEMENT CONSULTANT [facility] Blood BLOOD SPECIMEN / Unknown Venipuncture / Unknown 04/18/2024 12:45 PM CONTENT MANAGEMENT CONSULTANT 04/18/2024 12:51 PM CONTENT MANAGEMENT CONSULTANT us Deborah Lipscomb MD CHEMISTRY Final R esult [facility] [address] [place] [address], [place] * SCAN-CARDIAC STRIP (04/18/2024 7:46 AM CONTENT MANAGEMENT CONSULTANT) us Scanner OTHER Final Result * SCAN-CARDIAC STRIP (04/17/2024 11:49 PM CONTENT MANAGEMENT CONSULTANT) us Scanner OTHER Final Result * SCAN-CARDIAC STRIP (04/17/2024 9:12 PM CONTENT MANAGEMENT CONSULTANT) us Scanner OTHER Final Result * SCAN-CARDIAC STRIP (04/17/2024 7:41 AM CONTENT MANAGEMENT CONSULTANT) us Scanner OTHER Final Result * SCAN-CARDIAC STRIP (04/16/2024 11:25 PM CONTENT MANAGEMENT CONSULTANT) us Scanner OTHER Final Result * (ABNORMAL) ALT (SGPT) (04/16/2024 10:19 AM CONTENT MANAGEMENT CONSULTANT) ALT (SGPT) 201(H) 10 - 50 IU/L 04/16/2024 11:00 AM CONTENT MANAGEMENT CONSULTANT [facility] Blood BLOOD SPECIMEN / Unknown Butterfly / Unknown 04/16/2024 10:19 AM CONTENT MANAGEMENT CONSULTANT 04/16/2024 10:30 AM CONTENT MANAGEMENT CONSULTANT Deborah Lipscomb MD CHEMISTRY Final R esult Performing Organization Address City/[facility]/ZIP Co de Phone Number [facility] [address] [address], [place] * (ABNORMAL) AST (SGOT) (04/16/2024 10:19 AM CONTENT MANAGEMENT CONSULTANT) AST (SGOT) 58(H) 10 - 50 IU/L 04/16/2024 11:00 AM CONTENT MANAGEMENT CONSULTANT [facility] Blood BLOOD SPECIMEN / Unknown Butterfly / Unknown 04/16/2024 10:19 AM CONTENT MANAGEMENT CONSULTANT 04/16/2024 10:30 AM CONTENT MANAGEMENT CONSULTANT Deborah Lipscomb MD CHEMISTRY Final R esult Performing Organization Address [facility] Co de Phone Number [facility] [address] [address], [place] * (ABNORMAL) ALK PHOSPHATASE (04/16/2024 10:19 AM CONTENT MANAGEMENT CONSULTANT) ALK PHOSPHATASE 157(H) 40 - 129 IU/L 04/16/2024 11:00 AM CONTENT MANAGEMENT CONSULTANT [facility] Blood BLOOD SPECIMEN / Unknown Butterfly / Unknown 04/16/2024 10:19 AM CONTENT MANAGEMENT CONSULTANT 04/16/2024 10:30 AM CONTENT MANAGEMENT CONSULTANT Deborah Lipscomb MD CHEMISTRY Final R esult Performing Organization Address City/[facility]/ZIP Co de Phone Number [facility] [address] [address], [place] * (ABNORMAL) BILIRUBIN DIRECT (04/16/2024 10:19 AM CONTENT MANAGEMENT CONSULTANT) BILIRUBIN,DIRE CT 0.6(H) 0.0 - 0.2 mg/dL 04/16/2024 11:00 AM CONTENT MANAGEMENT CONSULTANT [facility] Blood BLOOD SPECIMEN / Unknown Butterfly / Unknown 04/16/2024 10:19 AM CONTENT MANAGEMENT CONSULTANT 04/16/2024 10:30 AM CONTENT MANAGEMENT CONSULTANT eDborah Lipscomb MD CHEMISTRY Final R [facility] Performing Organization Address [facility] Phone Number [facility] [address] [place] [address], * SCAN-CARDIAC STRIP (04/16/2024 8:23 AM CONTENT MANAGEMENT CONSULTANT) us Scanner OTHER Final Result * (ABNORMAL) SODIUM (04/16/2024 8:09 AM CONTENT MANAGEMENT CONSULTANT) Only the most recent of2 resultswithin the time period is included. SODIUM 134(L) 136 - 145 mmol/L 04/16/2024 9:45 AM CONTENT MANAGEMENT CONSULTANT [facility] Blood BLOOD SPECIMEN / Unknown Non-Lab Venipuncture / Unknown 04/16/2024 8:09 AM CONTENT MANAGEMENT CONSULTANT 04/16/2024 9:06 AM CONTENT MANAGEMENT CONSULTANT Deborah Lipscomb MD CHEMISTRY Final [facility] Performing Organization Address [facility] Phone Number [facility] [address] [place] [address], * (ABNORMAL) CREATININE (04/16/2024 8:09 AM CONTENT MANAGEMENT CONSULTANT) Only the most recent of2 resultswithin the time period is included. eGFR 37(L) >90 mL/min/1.7 3m2 04/16/2024 9:45 AM CONTENT MANAGEMENT CONSULTANT [facility] LAB[facility] Comment:As of 2021, eG FR is calculated by the CKD-EPI creatinine equation without race adjustment. eGFR can be influenced by muscle mass, exercise, and diet. The reported eGFR is an estimation only and is only applicable if the renal function is stable. CREATININE 1.91(H) 0.70 - 1.20 mg/dL 04/16/2024 9:45 AM CONTENT MANAGEMENT CONSULTANT [facility] Blood BLOOD SPECIMEN / Unknown Non-Lab Venipuncture / Unknown 04/16/2024 8:09 AM CONTENT MANAGEMENT CONSULTANT 04/16/2024 9:06 AM CONTENT MANAGEMENT CONSULTANT us Deborah Lipscomb MD CHEMISTRY Final R esult Performing Organization Address City/[facility]/ZIP Co de Phone Number [facility] [address] [place] [address], [place] * SCAN-CARDIAC STRIP (04/16/2024 1:03 AM CONTENT MANAGEMENT CONSULTANT) us Scanner OTHER Final Result * SCAN-CARDIAC STRIP (04/15/2024 8:37 PM CONTENT MANAGEMENT CONSULTANT) us Scanner OTHER Final Result * EKG 12 LEAD (04/15/2024 12:31 PM CONTENT MANAGEMENT CONSULTANT) Only the most recent of6 resultswithin the [...] NOW QTc 448 ms BEYOND NOW P [place] 53 degrees BEYOND NOW R [place] -60 degrees BEYOND NOW T [place] 118 degrees BEYOND NOW 04/15/2024 12:3 1 PM CONTENT MANAGEMENT CONSULTANT 04/16/2024 1:25 AM CONTENT MANAGEMENT CONSULTANT us Jossie Prado MEAT DEPARTMENT MANAGER EKG ORD Final Result Performing Organization Address [facility] Co de Phone Number BEYOND NOW [place], [place] * (ABNORMAL) GLUCOSE METER (04/15/2024 7:49 AM CONTENT MANAGEMENT CONSULTANT) Only the most recent of33 resultswithin the time period is included. GLUCOSE METER 134(H) 65 - 100 mg/dL 04/15/2024 7:54 AM CONTENT MANAGEMENT CONSULTANT [facility] Blood BLOOD SPECIMEN / Unknown 04/15/2024 7:49 AM CONTENT MANAGEMENT CONSULTANT 04/15/2024 7:54 AM CONTENT MANAGEMENT CONSULTANT us Deborah Lipscomb MD CHEMISTRY Final R esult [facility] [address] [place] [address], [place] * SCAN-CARDIAC STRIP (04/15/2024 7:26 AM CONTENT MANAGEMENT CONSULTANT) us Scanner OTHER Final Result * SCAN-CARDIAC STRIP (04/15/2024 3:06 AM CONTENT MANAGEMENT CONSULTANT) us Scanner OTHER Final Result * SCAN-CARDIAC STRIP (04/14/2024 9:43 PM CONTENT MANAGEMENT CONSULTANT) us Scanner OTHER Final Result * SCAN-CARDIAC STRIP (04/14/2024 3:27 PM CONTENT MANAGEMENT CONSULTANT) us Scanner OTHER Final Result * ICD ANALYSIS DUAL WITHOUT REPROGRAM (04/14/2024 3:13 PM CONTENT MANAGEMENT CONSULTANT) Narrative Vasyl Kim MD - 04/14/2024 3:13 PM CONTENT MANAGEMENT CONSULTANT Marino Strickland RN 04/14/2024 3:17 PM ICD EVALUATION REPORT 04/14/2024 Summary: Normal pacemaker function. Lead trends stable. 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 No VT detections. AP 20.9%, ANIMAL NURSE 0.2%. Battery estimating 11.2 years remaining. Indication for ICD: Primary Prevention of Sudden Cardiac Primary MD: Shana Lozano DO Primary Professor Of Archaeology: [facility] Implanting MD: Bert Quiros- [facility] DEVICE DATA Stylist Assistant Medtronic: Model [place] XT [id number] Implant Date 04/09/2023 LEAD DATA Atrial Lead: Stylist Assistant Medtronic: Model 5076-52 cm Implant Date 04/09/23 RV Lead: Stylist Assistant Medtronic: Model 6935M-62 cm Implant Date 04/09/23 [...] Tachy therapy hx: none Location of evaluation: [facility] [id number] Reason for evaluation: MD request [...] permanent changes made. Follow up: follows with [facility] device clinic Marino Strickland RN Nurse Clinician II [facility] Pacemaker/ICD [phone] Vasyl Kim MD CARDIAC SERVICES ORD Final Result * SCAN-CARDIAC STRIP (04/14/2024 7:21 AM CONTENT MANAGEMENT CONSULTANT) Scanner OTHER Final Result * URINALYSIS MICROSCOPIC (04/14/2024 6:29 AM CONTENT MANAGEMENT CONSULTANT) Only the most recent of2 resultswithin the time period is included. RBC 0-2 0-2, None Seen /HPF 04/14/2024 7:26 AM CONTENT MANAGEMENT CONSULTANT [facility] TRAL LABORATORY WBC 3-5 0-2, 3-5, None Seen /HPF 04/14/2024 7:26 AM CONTENT MANAGEMENT CONSULTANT [facility] TRAL LABORATORY BACTERIA None Seen None Seen, Rare, Few Bacteria/ HPF 04/14/2024 7:26 AM CONTENT MANAGEMENT CONSULTANT [facility] TRAL LABORATORY EPITHELIAL CELLS None Seen None Seen, Few Epi/HPF 04/14/2024 7:26 AM CONTENT MANAGEMENT CONSULTANT [facility] TRAL LABORATORY HYALINE CASTS 0-2 0-2, 3-5 /LPF 04/14/2024 7:26 AM CONTENT MANAGEMENT CONSULTANT [facility] Urine URINE SPECIMEN / Unknown Non-Blood / Unknown 04/14/2024 6:29 AM CONTENT MANAGEMENT CONSULTANT 04/14/2024 6:36 AM CONTENT MANAGEMENT CONSULTANT Santy Crowley MD URINE Final Re sult [facility] [address] [place] [address], * (ABNORMAL) UA W/ SEDIMENT EXAM REFLEXED PER CRITERIA (04/14/2024 6:29 AM CONTENT MANAGEMENT CONSULTANT) Only the most recent of2 resultswithin the time period is included. COLOR Yellow Yellow Color 04/14/2024 7:26 AM CONTENT MANAGEMENT CONSULTANT [facility] TRAL LABORATORY CLARITY Clear Clear Clarity 04/14/2024 7:26 AM CONTENT MANAGEMENT CONSULTANT [facility] TRA LABORATORY SPECIFIC GRAVITY,URINE 1.015 1.010, 1.015, 1.020, 1.025 04/14/2024 7:26 AM [facility] TRAL LABORATORY PH,URINE 5.5 6.0, 7.0, 8.0, 5.5, 6.5, 7.5, 8.5 04/14/2024 7:26 AM [facility] TRAL LABORATORY UROBILINOGEN, QUALITATIVE Normal Normal EU/dl 04/14/2024 7:26 AM [facility] TRAL LABORATORY PROTEIN, URINE Negative Negative mg/dL 04/14/2024 7:26 AM [facility] TRAL LABORATORY GLUCOSE, URINE Negative Negative mg/dL 04/14/2024 7:26 AM [facility] TRAL LABORATORY KETONES,URINE Negative Negative mg/dL 04/14/2024 7:26 AM [facility] TRAL LABORATORY BILIRUBIN,URI NE Negative Negative 04/14/2024 7:26 AM [facility] TRAL LABORATORY OCCULT BLOOD,URINE Negative Negative 04/14/2024 7:26 AM [facility] TRAL LABORATORY NITRITE Negative Negative 04/14/2024 7:26 AM [facility] TRAL LABORATORY LEUKOCYTE ESTERASE Trace(A) Negative 04/14/2024 7:26 AM [facility] Urine URINE SPECIMEN / Unknown Non-Blood / Unknown 04/14/2024 6:29 AM CONTENT MANAGEMENT CONSULTANT 04/14/2024 6:36 AM CONTENT MANAGEMENT CONSULTANT us Santy Crowley MD URINE Final Re sult [facility] [address] [place] [id number], * SCAN-CARDIAC STRIP (04/13/2024 8:03 PM CONTENT MANAGEMENT CONSULTANT) us Scanner OTHER Final Result * PICC LINE (04/13/2024 7:28 PM CONTENT MANAGEMENT CONSULTANT) Narrative Eleonora Fox RN - 04/13/2024 7:28 PM CONTENT MANAGEMENT CONSULTANT Eleonora Fox RN 04/13/2024 7:33 PM PICC Line Insertion Note 04/13/2024 7:28 PM Procedure education reviewed: Placement procedure, discussed with: Patient face to face. Patient face to face confirms understanding of procedure. Supervisor Cab used: No Reason for insertion: MD order [...] (Active) 04/13/241899 Right;Basilic;Upper Arm Vessel Diameter: 0.46 Chwlnlgf-ux-Hzky Ratio (%): Visible Catheter Length (cm): 0 [...] Dressing change due date 04/20/2024 04/13/241899 Line Stylist Assistant Name: Bard Line Type: Valved Power PICC Lot Number: [id number] Access Assistance:Modified Seldinger Technique (Micro-Introducer) WITH Dermatotomy [...] * Insert PICC line (04/13/2024 7:20 PM CONTENT MANAGEMENT CONSULTANT) Narrative Eleonora Fox, AMELIA - 04/13/2024 7:20 PM CONTENT MANAGEMENT CONSULTANT Eleonora Fox, RN 04/13/2024 7:22 PM PICC [...] ult * SCAN-CARDIAC STRIP (04/13/2024 3:12 PM CONTENT MANAGEMENT CONSULTANT) us Scanner OTHER Final Result * ICD ANALYSIS DUAL WITHOUT REPROGRAM (04/13/2024 1:57 PM CONTENT MANAGEMENT CONSULTANT) Narrative Vasyl Kim MD - 04/13/2024 1:57 PM CONTENT MANAGEMENT CONSULTANT Mirela aBtes, AMELIA 04/13/2024 2:23 PM ICD EVALUATION REPORT 04/13/2024 Summary: Normal pacemaker function. Lead trends stable. 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 No VT detections. AP 2.9%, ANIMAL NURSE 51.9%. Battery estimating 11.3 years remaining. Indication for ICD: Primary Prevention of Sudden Cardiac Primary MD: Shana Lozano DO Primary Professor Of Archaeology: [facility] Implanting MD: Bert Quiros- [facility] DEVICE DATA Stylist Assistant Medtronic: Model [place] XT DR [id number] Implant Date 04/09/2023 LEAD DATA Atrial Lead: Stylist Assistant Medtronic: Model 5076-52 cm Implant Date 04/09/23 RV Lead: Stylist Assistant Medtronic: Model 6935M-62 cm Implant Date 04/09/23 [...] Tachy therapy hx: none Location of evaluation: [facility] [id number] Reason for evaluation: MD request- [...] permanent changes made. Follow up: follows with [facility] device clinic Mirela Bates RN Nurse Clinician II [facility] Pacemaker/ICD Clinic [phone] us Vasyl Kim MD CARDIAC SERVICES ORD Final Result * SCAN-CARDIAC STRIP (04/13/2024 7:35 AM CONTENT MANAGEMENT CONSULTANT) Scanner OTHER Final Result * (ABNORMAL) COMPREHENSIVE BLOOD GAS MIXED VENOUS (04/12/2024 4:48 PM CONTENT MANAGEMENT CONSULTANT) O2 SATURATION, MEASURED, MIXED VENOUS 41(L) 70 - 75 % 04/12/2024 4:48 PM CONTENT MANAGEMENT CONSULTANT [facility]-CE NTRAL LABORATORY PATIENT TEMPERATURE 37.0 Degrees C 04/12/2024 4:48 PM CONTENT MANAGEMENT CONSULTANT [facility]- NTRIL LABORATORY COLLECTION SITE PULMONARY ARTERY 04/12/2024 4:48 PM CONTENT MANAGEMENT CONSULTANT [facility] HEMOGLOBIN,BLOO D GAS 11.4(L) 13.5 - 17.5 g/dL 04/12/2024 4:48 PM CONTENT MANAGEMENT CONSULTANT [facility] N[facility]IL LABORAT[facility] Blood BLOOD SPECIMEN / Unknown 04/12/2024 4:48 PM CONTENT MANAGEMENT CONSULTANT 04/12/2024 4:48 PM CONTENT MANAGEMENT CONSULTANT us [facility] CHEMISTRY Final Re sult [facility]-CENTRAL LABORATORY [address] [place] [address], [place] * CVL OTHER PROCEDURE (04/12/2024 4:09 PM CONTENT MANAGEMENT CONSULTANT) Anatomical Region Laterality Modality Other 04/12/2024 4:09 PM CONTENT MANAGEMENT CONSULTANT us Provider Referring CV IMAGING Final Result * SCAN-CARDIAC STRIP (04/12/2024 3:27 PM CONTENT MANAGEMENT CONSULTANT) us Scanner OTHER Final Result * US RENAL AND BLADDER COMPLETE (04/12/2024 2:51 PM CONTENT MANAGEMENT CONSULTANT) Anatomical Region Laterality Modality Abdomen, AORTA, KIDNEYS Ultrasou nd 04/12/2024 3:46 PM CONTENT MANAGEMENT CONSULTANT Impressions 04/12/2024 3:46 PM CONTENT MANAGEMENT CONSULTANT Simple appearing right lower pole renal cyst. Otherwise, no concerning findings on a renal ultrasound. Dictated by Danny Rubio MD @ 04/12/2024 3:46:12 PM (Electronically Signed) Narrative 04/12/2024 3:46 PM CONTENT MANAGEMENT CONSULTANT For Patients: As a result of the [...] COLOR W LTD DOPPLER (04/12/2024 10:52 AM CONTENT MANAGEMENT CONSULTANT) MITRAL VALVE MR ERO 13 mm2 EJECTION FRACTION 10 - 20% Anatomical Region Laterality Modality Ultrasound 04/12/2024 10:2 2 AM CONTENT MANAGEMENT CONSULTANT Narrative 04/12/2024 1:01 PM CONTENT MANAGEMENT CONSULTANT TRANSESOPHAGEAL ECHOCARDIOGRAM CASEY SOLER : 1950 73 years Study Date: 04/12/2024 10:22:59 AM Gender: M BP: 96/76 mmHg Height: 172.00 cm BSA: 1.91 m Weight: 78.00 kg Tech: LETICIA/ION Referring MD: FARA BLACKWELL Site: [facility] Reading Location: [facility] Patient Location: Inpatient. Procedure: NOEL, Limited [...] . This study was interpreted by an [facility] accredited facility. Final Procedure Note Troy Munoz MD - 04/12/2024 TRANSESOPHAGEAL ECHOCARDIOGRAM CASEY SOLER : 1950 73 years Study Date: 04/12/2024 10:22:59 AM Gender: M BP: 96/76 mmHg Height: 172.00 cm BSA: 1.91 m Weight: 78.00 kg Tech: LETICIA/IJ Referring MD: FARA BLACKWELL Site: [facility] Reading Location: [facility] Patient Location: Inpatient. Procedure: NOEL, Limited [...] . This study was interpreted by an [facility] accredited facility. Final us Fara Blackwell MEAT DEPARTMENT MANAGER ECHO ORD Final Resu lt * EP OTHER PROCEDURE (04/12/2024 10:48 AM CONTENT MANAGEMENT CONSULTANT) Anatomical Region Laterality Modality Other Narrative 04/12/2024 10:48 AM CONTENT MANAGEMENT CONSULTANT Troy Munoz MD 04/12/2024 10:48 AM [facility] [...] sult * SCAN-CARDIAC STRIP (04/12/2024 3:46 AM CONTENT MANAGEMENT CONSULTANT) us Scanner OTHER Final Result * SCAN-OPERATIVE/PROCEDURE REPORT (04/12/2024 12:00 AM CONTENT MANAGEMENT CONSULTANT) Narrative 04/12/2024 12:00 AM CONTENT MANAGEMENT CONSULTANT Ordered by an unspecified provider. us Other Clinical Staff OTHER Final Resul t * SCAN-CARDIAC STRIP (04/11/2024 8:21 PM CONTENT MANAGEMENT CONSULTANT) us Scanner OTHER Final Result * SCAN-CARDIAC STRIP (04/11/2024 4:18 PM CONTENT MANAGEMENT CONSULTANT) us Scanner OTHER Final Result * SCAN-CARDIAC STRIP (04/11/2024 7:48 AM CONTENT MANAGEMENT CONSULTANT) us Scanner OTHER Final Result * SCAN-CARDIAC STRIP (04/10/2024 4:04 PM CONTENT MANAGEMENT CONSULTANT) us Scanner OTHER Final Result * SCAN-CARDIAC STRIP (04/10/2024 10:29 AM CONTENT MANAGEMENT CONSULTANT) us Scanner OTHER Final Result * SCAN-CARDIAC STRIP (04/10/2024 5:01 AM CONTENT MANAGEMENT CONSULTANT) us Scanner OTHER Final Result * SCAN-CARDIAC STRIP (04/09/2024 7:40 PM CONTENT MANAGEMENT CONSULTANT) us Scanner OTHER Final Result * SCAN-CARDIAC STRIP (04/09/2024 3:40 PM CONTENT MANAGEMENT CONSULTANT) us Scanner OTHER Final Result * PATH TISSUE EXAM (04/08/2024 12:39 PM CONTENT MANAGEMENT CONSULTANT) Case Report Pathology Report Case: [id number] Authorizing Provider: Chepe Francis MD Collected: 04/08/2024 1239 Ordering Location: [facility] Received: 04/08/2024 1244 [facility] Pathologist: Lukasz Pinto MD Specimen: Gastric Biopsy 04/09/2024 11:12 AM CONTENT MANAGEMENT CONSULTANT [facility] Final Diagnosis A) STOMACH, BIOPSY: 1. Normal gastric antral and body mucosae with endoscopic erosion (see comment) 2. Negative for chronic gastritis or Helicobacter 04/09/2024 11:12 AM [facility] Comment A) We note the endoscopic presence of an erosion. The sampled mucosa is histologically normal. In this context patchy reactive gastropathy due to chemical type injury (NSAIDs, alcohol, bile reflux, etc.) seems likely. Please correlate clinically. 04/09/2024 11:12 AM [facility] Clinical Information 73-year-old male with iron deficiency anemia and melena. He is on chronic aspirin, Plavix, and ibuprofen. EGD identified a single erosion in the prepyloric region of the stomach. 04/09/2024 11:12 AM [facility] Gross Description A) Received in formalin is a 6 x 3 x 1 mm aggregate of alvarez mucosa. Submitted in one cassette. It is labeled with the patient's name and designated gastric biopsy. Joana Estrada 04/08/2024 1:06 PM 04/09/2024 11:12 AM [facility] Microscopic Description The final diagnosis is based on microscopic examination of appropriate sections of all specimens. 04/09/2024 11:12 AM [facility] Additional Information Interpreted at [facility], Central Laboratory - [address] [facility] [address], [place] [address] 04/09/2024 11:12 AM CONTENT MANAGEMENT CONSULTANT [facility] LABORATORY-C ENTRAL LABORATORY Biopsy GASTRIC BIOPSY SPECIMEN / Unknown 04/08/2024 12:39 PM CONTENT MANAGEMENT CONSULTANT 04/08/2024 12:44 PM CONTENT MANAGEMENT CONSULTANT Chepe Francis MD PATHOLOGY/CYTOLOGY Christy l Result [facility] LAB[facility] [address] [place] [address], [place] * ENDOSCOPY (04/08/2024 9:49 AM CONTENT MANAGEMENT CONSULTANT) 04/08/2024 9:49 AM CONTENT MANAGEMENT CONSULTANT Narrative Transcriptions Chepe Francis MD - 04/08/2024 [...] surgery and alternatives discussed. The endoscope [id number] was introduced through the mouth, and advanced [...] * EXTRA TUBE LAVENDER (04/08/2024 6:45 AM CONTENT MANAGEMENT CONSULTANT) Only the most recent of2 resultswithin the time period is included. Blood BLOOD SPECIMEN / Unknown Non-Lab Venipuncture / Unknown 04/08/2024 6:45 AM CONTENT MANAGEMENT CONSULTANT 04/08/2024 6:57 AM CONTENT MANAGEMENT CONSULTANT Joseph Arora MD LABORATORY Final Re sult [facility]-CENTRAL LABORATORY [address] [place] [address], [place] * EXTRA TUBE BLUE (04/08/2024 6:45 AM CONTENT MANAGEMENT CONSULTANT) Only the most recent of3 resultswithin the time period is included. Blood BLOOD SPECIMEN / Unknown Non-Lab Venipuncture / Unknown 04/08/2024 6:45 AM CONTENT MANAGEMENT CONSULTANT 04/08/2024 6:57 AM CONTENT MANAGEMENT CONSULTANT Joseph Arora MD LABORATORY Final Re sult Performing Organization Address [facility] Co de Phone Number [facility] [address] [place] [id number], [place] * SCAN-CARDIAC STRIP (04/07/2024 11:52 PM CONTENT MANAGEMENT CONSULTANT) Scanner OTHER Final Result * (ABNORMAL) DIGOXIN (04/07/2024 1:50 PM CONTENT MANAGEMENT CONSULTANT) Pathologist [facility] DIGOXIN 2.5(H) 0.8 - 2.0 ng/mL 04/07/2024 2:32 PM CONTENT MANAGEMENT CONSULTANT [facility] TRAL LABORATORY DATE OF LAST DOSE Not Given 04/07/2024 2:32 PM CONTENT MANAGEMENT CONSULTANT [facility] TRAL LABORATORY TIME OF LAST DOSE Not Given 04/07/2024 2:32 PM CONTENT MANAGEMENT CONSULTANT [facility] TR[facility] LABORATORY Blood BLOOD SPECIMEN / Unknown Venipuncture / Unknown 04/07/2024 1:50 PM CONTENT MANAGEMENT CONSULTANT 04/07/2024 1:55 PM CONTENT MANAGEMENT CONSULTANT Guille Choi NP CHEMISTRY Final Result Performing Organization Address [facility] Co de Phone Number [facility] [address] [address], [place] * COVID/FLU/RSV PANEL (04/07/2024 9:48 AM CONTENT MANAGEMENT CONSULTANT) Pathologist [facility] COVID 19 [facility] MOLECULAR Negative Negative 04/07/2024 12:16 PM CONTENT MANAGEMENT CONSULTANT [facility] TRAL LABORATORY Comment:All PCR tests are krishnan bject to false negative result due to variability in viral load and collection technique. A negative result does not rule out a SARS-CoV-2 infection. Clinical correlation required. INFLUENZA A PCR Negative 12:16 PM CONTENT MANAGEMENT CONSULTANT [facility] LABORATORY-[facility] TRAL LABORATORY INFLUENZA B PCR Negative 12:16 PM CONTENT MANAGEMENT CONSULTANT [facility] TRAL LABORATORY Respiratory Syncytial Virus Negative 04/07/2024 12:16 PM CONTENT MANAGEMENT CONSULTANT [facility] TRAL LABORATORY Swab NASOPHARYNGEAL SWAB / Unknown Non-Blood / Unknown 04/07/2024 9:48 AM CONTENT MANAGEMENT CONSULTANT 04/07/2024 10:17 AM CONTENT MANAGEMENT CONSULTANT us Joseph Arora MD MICROBIOLOGY Final Re sult [facility] [address] [place] [address], * ICD ANALYSIS DUAL WITHOUT REPROGRAM (04/07/2024 9:05 AM CONTENT MANAGEMENT CONSULTANT) Narrative Chato Benz MD - 04/07/2024 9:05 AM CONTENT MANAGEMENT CONSULTANT Mirela Bates RN 04/07/2024 9:59 AM ICD EVALUATION REPORT April 07, 2024 Summary: Normal pacemaker function. Lead trends stable. One AT/AF detection- beginning on 04/03/24 and has continuous since this time. Poor ventricular rate control. One VT detection on 01/29/24- 3 seconds rate of 233 bpm. AP 35.8%, ANIMAL NURSE 2.2%. Battery estimating 11.3 years remaining. Indication for ICD: Primary Prevention of Sudden Cardiac Primary MD: Shana Lozano DO Primary Professor Of Archaeology: [facility] Implanting MD: Bert Quiros- [facility] DEVICE DATA Stylist Assistant Medtronic: Model [place] XT DR [id number] Implant Date 04/09/2023 LEAD DATA Atrial Lead: Stylist Assistant Medtronic: Model 5076-52 cm Implant Date 04/09/23 RV Lead: Stylist Assistant Medtronic: Model 6935M-62 cm Implant Date 04/09/23 [...] Tachy therapy hx: none Location of evaluation: [facility] [id number] Reason for evaluation: request MEASUREMENTS [...] permanent changes made. Follow up: follows with [facility] device clinic Mirela Bates RN Nurse Clinician II I Pacemaker/ICD Clinic [phone] us Chato Benz MD CARDIAC SERVICES ORD F inal Result * ECHO TTE LIMITED W CONTRAST W COLOR W DOPPLER (04/07/2024 8:53 AM CONTENT MANAGEMENT CONSULTANT) AORTIC VALVE MEAN PG 2 mmHg EJECTION FRACTION 20 % LVEDD 6.6 cm Anatomical Region Laterality Modality Ultrasound 04/07/2024 8:08 AM CONTENT MANAGEMENT CONSULTANT Narrative 04/07/2024 9:36 AM CONTENT MANAGEMENT CONSULTANT ECHOCARDIOGRAM CASEY SOLER : 1950 73 years Study Date: 04/07/2024 8:08:24 AM Gender: M BP: 90/87 mmHg Height: 172.00 cm BSA: 1.94 m Weight: 81.00 kg Tech: LETICIA Referring MD: GUILLE CHOI Site: [facility] Reading Location: ANW IP Patient Location: [...] documentation: 2 ml diluted Definity, lot #[id number], [facility]# [id number] was administered peripherally to enhance visualization of all left ventricular segments. . This study was interpreted by an [facility] accredited facility. Final Procedure Note Jayashree Velarde MD - 04/07/2024 ECHOCARDIOGRAM CASEY SOLER : 1950 73 years Study Date: 04/07/2024 8:08:24 AM Gender: M BP: 90/87 mmHg Height: 172.00 cm BSA: 1.94 m Weight: 81.00 kg Tech: LETICIA Referring MD: GUILLE CHOI Site: [facility] Reading Location: ANW IP Patient Location: [...] documentation: 2 ml diluted Definity, lot #[id number], [facility] [place]#[id number] was administered peripherally to enhance visualization of allleft ventricular segments. . This study was interpreted by an [facility] accredited facility. Final us Guille Choi NP ECHO ORD Final Result * (ABNORMAL) LACTATE VENOUS (04/07/2024 6:20 AM CONTENT MANAGEMENT CONSULTANT) Only the most recent of3 resultswithin the time period is included. [facility] LACTATE,VENOUS 2.5(H) 0.5 - 2.0 mmol/L 04/07/2024 7:32 AM CONTENT MANAGEMENT CONSULTANT [facility] LAB[facility] Blood BLOOD SPECIMEN / Unknown Venipuncture / Unknown 04/07/2024 6:20 AM CONTENT MANAGEMENT CONSULTANT 04/07/2024 6:59 AM CONTENT MANAGEMENT CONSULTANT us Guille Choi NP CHEMISTRY Final Result [facility] [address] [place], [place] [id number], * SCAN-CARDIAC STRIP (04/07/2024 5:29 AM CONTENT MANAGEMENT CONSULTANT) us Scanner OTHER Final Result * SCAN-CARDIAC STRIP (04/07/2024 3:14 AM CONTENT MANAGEMENT CONSULTANT) us Scanner OTHER Final Result * TYPE & SCREEN (04/07/2024 12:39 AM CONTENT MANAGEMENT CONSULTANT) ABORH A Rh Positive 04/07/2024 2:10 AM CONTENT MANAGEMENT CONSULTANT [facility] B[facility]OD [facility] ANTIBODY SCREEN Negative Negative 04/07/2024 2:10 AM CONTENT MANAGEMENT CONSULTANT [facility] B[facility]OD [facility] SPECIMEN EXPIRATION DATE/TIME 04/10/24 23:59 04/07/2024 2:10 AM CONTENT MANAGEMENT CONSULTANT [facility] B[facility]OD [facility] Blood BLOOD SPECIMEN / Unknown Butterfly / Unknown 04/07/2024 12:39 AM CONTENT MANAGEMENT CONSULTANT 04/07/2024 1:05 AM CONTENT MANAGEMENT CONSULTANT Guille Choi MEAT DEPARTMENT MANAGER BLOOD BANK Final Result [facility] BLOOD BANK [address] [place] [address], * (ABNORMAL) Iron plus iron binding cap AM (04/07/2024 12:39 AM CONTENT MANAGEMENT CONSULTANT) IRON 57(L) 61 - 157 ug/dL 04/07/2024 2:03 AM CONTENT MANAGEMENT CONSULTANT [facility] UIBC (UNSATURATED) 229 112 - 347 ug/dL 04/07/2024 2:03 AM CONTENT MANAGEMENT CONSULTANT [facility] IRON BINDING CAPACITY 286 250 - 400 ug/dL 04/07/2024 2:03 AM [facility] IRON,% SATURATION 20 14 - 50 % 04/07/2024 2:03 AM CONTENT MANAGEMENT CONSULTANT [facility] Blood BLOOD SPECIMEN / Unknown Butterfly / Unknown 04/07/2024 12:39 AM CONTENT MANAGEMENT CONSULTANT 04/07/2024 1:05 AM CONTENT MANAGEMENT CONSULTANT Parmjit Berrios MD CHEMISTRY Final Resul t [facility] [address] [place] [address], * (ABNORMAL) Reticulocyte count AM (04/07/2024 12:39 AM CONTENT MANAGEMENT CONSULTANT) RETIC% 2.3(H) 0.5 - 1.5 % 04/07/2024 1:35 AM CONTENT MANAGEMENT CONSULTANT [facility] RETIC (ABSOLUTE) 0.09(H) 0.03 - 0.08 mil/cu mm 04/07/2024 1:35 AM CONTENT MANAGEMENT CONSULTANT [facility] Blood BLOOD SPECIMEN / Unknown Butterfly / Unknown 04/07/2024 12:39 AM CONTENT MANAGEMENT CONSULTANT 04/07/2024 1:05 AM CONTENT MANAGEMENT CONSULTANT Parmjit Berrios MD HEMATOLOGY Final Resul t Performing Organization Address [facility] Co de Phone Number [facility] [address] [place] [address], * Ferritin AM (04/07/2024 12:39 AM CONTENT MANAGEMENT CONSULTANT) FERRITIN 275.0 30.0 - 400.0 ng/mL 04/07/2024 1:58 AM CONTENT MANAGEMENT CONSULTANT [facility] Blood BLOOD SPECIMEN / Unknown Butterfly / Unknown 04/07/2024 12:39 AM CONTENT MANAGEMENT CONSULTANT 04/07/2024 1:05 AM CONTENT MANAGEMENT CONSULTANT Parmjit Berrios MD CHEMISTRY Final Resul t Performing Organization Address [facility] de Phone Number [facility] [address] [place] [address], * (ABNORMAL) COMP METABOLIC PANEL (04/07/2024 12:39 AM CONTENT MANAGEMENT CONSULTANT) SODIUM 131(L) 136 - 145 mmol/L 04/07/2024 1:30 AM CONTENT MANAGEMENT CONSULTANT [facility] TRAL LABORATORY POTASSIUM 3.8 3.5 - 5.1 mmol/L 04/07/2024 1:30 AM CONTENT MANAGEMENT CONSULTANT [facility] TRAL LABORATORY CHLORIDE 86(L) 98 - 107 mmol/L 04/07/2024 1:30 AM CONTENT MANAGEMENT CONSULTANT [facility] CO2,TOTAL 23 22 - 29 mmol/L 04/07/2024 1:30 AM CONTENT MANAGEMENT CONSULTANT [facility] TRAL LABOR[facility] ANION GAP 22(H) 5 - 18 04/07/2024 1:30 AM CONTENT MANAGEMENT CONSULTANT [facility] GLUCOSE 110(H) 70 - 99 mg/dL 04/07/2024 1:30 AM [facility] LABORATORY CALCIUM 9.1 8.8 - 10.4 mg/dL 04/07/2024 1:30 AM [facility] Comment: Reference ranges for this test were updated on 01/06/2024 to reflect our healthy population more accurately. Reference range changes are not retroactively applied to results, but previous results using the same methodology can be interpreted in the context of the new reference range. BUN 94(H) 8 - 23 mg/dL 04/07/2024 1:30 AM [facility] CREATININE 2.41(H) 0.70 - 1.20 mg/dL 04/07/2024 1:30 AM [facility] BUN/CREAT RATIO 39(H) 10 - 20 1:30 AM [facility] eGFR 28(L) >90 mL/min/1. 73m2 04/07/2024 1:30 AM [facility] Comment:As of 2021, eG FR is calculated by the CKD-EPI creatinine equation without race adjustment. eGFR can be influenced by muscle mass, exercise, and diet. The reported eGFR is an estimation only and is only applicable if the renal function is stable. ALBUMIN 3.8(L) 4.0 - 4.9 g/dL 04/07/2024 1:30 AM [facility] PROTEIN,TOTAL 6.4 6.0 - 8.0 g/dL 04/07/2024 1:30 AM [facility] BILIRUBIN,TOTAL 0.7 0.0 - 1.2 mg/dL 04/07/2024 1:30 AM [facility] ALK PHOSPHATASE 96 40 - 129 IU/L 04/07/2024 1:30 AM [facility] ALT (SGPT) 9(L) 10 - 50 IU/L 04/07/2024 1:30 AM [facility] AST (SGOT) 22 10 - 50 IU/L 04/07/2024 1:30 AM CONTENT MANAGEMENT CONSULTANT [facility]OR[facility]-LI TRAL LABORATORY Blood BLOOD SPECIMEN / Unknown Butterfly / Unknown 04/07/2024 12:39 AM CONTENT MANAGEMENT CONSULTANT 04/07/2024 1:05 AM CONTENT MANAGEMENT CONSULTANT us Guille Choi NP CHEMISTRY Final Result [facility]AL LABORATORY [address] [place] [address], [place] * XR CHEST 1 VIEW PORTABLE (04/06/2024 8:19 PM CONTENT MANAGEMENT CONSULTANT) Anatomical Region Laterality Modality HEART, THORAX, CHEST Computed Ra diography 04/06/2024 8:19 PM CONTENT MANAGEMENT CONSULTANT Impressions 04/06/2024 8:48 PM CONTENT MANAGEMENT CONSULTANT Stable size of cardiomediastinal silhouette with pacemaker/AICD leads overlying the right atrium and right ventricle. Likely pulmonary vascular congestion with subtle interstitial opacities in the lung bases, right greater than left, differential includes mild edema and atypical infectious/inflammatory process. No definite pleural effusion or pneumothorax. No acute bony abnormality. Narrative 04/06/2024 8:48 PM CONTENT MANAGEMENT CONSULTANT For Patients: As a result of the Cures Act, medical imaging exams and procedure reports are released immediately into your electronic medical record. You may view this report before your referring provider. If you have questions, please contact your health care provider. EXAM: XR CHEST 1 VIEW PORTABLE LOCATION: [facility] DATE: 04/06/2024 INDICATION: Shortness of breath [...] EXAM: XR CHEST 1 VIEW PORTABLE LOCATION: [facility] DATE: 04/06/2024 INDICATION: Shortness of breath [...] * (ABNORMAL) TROPONIN I (04/06/2024 7:53 PM CONTENT MANAGEMENT CONSULTANT) Only the most recent of2 resultswithin the time period is included. Pathologist [facility] TROPONIN I KELLI 0.043(HH) <0.030 ng/mL 04/06/2024 8:31 PM CONTENT MANAGEMENT CONSULTANT [facility] Blood BLOOD SPECIMEN / Unknown Venipuncture / Unknown 04/06/2024 7:53 PM CONTENT MANAGEMENT CONSULTANT 04/06/2024 7:59 PM CONTENT MANAGEMENT CONSULTANT us John Ramirez MD CHEMISTRY Final Result Performing Organization Address [facility]/State/ZIP Co de Phone Number [facility] [address] [place] [address], * BEDSIDE US STUDY ARCHIVE (04/06/2024 3:07 PM CONTENT MANAGEMENT CONSULTANT) Narrative Charly Monroe MD - 04/06/2024 3:07 PM CONTENT MANAGEMENT CONSULTANT Jun Mar MD 04/06/2024 3:08 PM BEDSIDE [...] CBC WITH AUTO DIFFERENTIAL (04/06/2024 2:45 PM CONTENT MANAGEMENT CONSULTANT) [facility] WHITE BLOOD COUNT 12.6 4.5 - 13.5 thou/cu mm 04/06/2024 3:10 PM CONTENT MANAGEMENT CONSULTANT [facility] RED BLOOD COUNT 4.39(L) 4.70 - 6.10 mil/cu mm 04/06/2024 3:10 PM [facility] HEMOGLOBIN 13.0(L) 13.5 - 17.5 g/dL 04/06/2024 3:10 PM [facility] HEMATOCRIT 39.5(L) 42.0 - 52.0 % 04/06/2024 3:10 PM [facility] MCV 90 80 - 94 fL 04/06/2024 3:10 PM [facility] MCH 29.6 27.0 - 31.0 pg 04/06/2024 3:10 PM [facility] MCHC 32.9(L) 33.0 - 36.0 g/dL 04/06/2024 3:10 PM [facility] RDW 17.4(H) 11.6 - 14.8 % 04/06/2024 3:10 PM [facility] PLATELET COUNT 341 130 - 400 thou/cu mm 04/06/2024 3:10 PM [facility] MPV 10.6(H) 7.4 - 10.4 fL 04/06/2024 3:10 PM [facility] NRBC 0.0 0.0 - 0.9 % 04/06/2024 3:10 PM [facility] % NEUT 85.1(H) 37.0 - 80.0 % 04/06/2024 3:10 PM [facility] % LYMPH 5.6(L) 10.0 - 50.0 % 04/06/2024 3:10 PM [facility] % MONO 6.8 0.0 - 12.0 % 04/06/2024 3:10 PM [facility] % EOS 0.6 0.0 - 7.0 % 04/06/2024 3:10 PM [facility] % BASO 0.4 0.0 - 2.5 % 04/06/2024 3:10 PM [facility] % IMMATURE GRAN (METAS,MYELOS,UT OS) 1.5 % 04/06/2024 3:10 PM [facility] ABSOLUTE NEUTROPHILS 10.7(H) 2.0 - 6.9 thou/cu mm 04/06/2024 3:10 PM CONTENT MANAGEMENT CONSULTANT [facility] ABSOLUTE LYMPHOCYTES 0.7 0.6 - 3.4 thou/cu mm 04/06/2024 3:10 PM CONTENT MANAGEMENT CONSULTANT [facility] ABSOLUTE MONOCYTES 0.9 0.0 - 1.0 thou/cu mm 04/06/2024 3:10 PM CONTENT MANAGEMENT CONSULTANT [facility] ABSOLUTE EOSINOPHILS 0.1 <=0.7 thou/cu mm 04/06/2024 3:10 PM CONTENT MANAGEMENT CONSULTANT [facility] ABSOLUTE BASOPHILS 0.1 <0.2 thou/cu mm 04/06/2024 3:10 PM CONTENT MANAGEMENT CONSULTANT [facility] ABSOLUTE IMMATURE GRANULOCYTES(MET ,MYELOS,PROS) 0.2 <0.3 thou/cu mm 04/06/2024 3:10 PM CONTENT MANAGEMENT CONSULTANT [facility] Blood BLOOD SPECIMEN / Unknown IV Start / Unknown 04/06/2024 2:45 PM CONTENT MANAGEMENT CONSULTANT 04/06/2024 3:00 PM CONTENT MANAGEMENT CONSULTANT Jun Mar MD HEMATOLOGY Final Result [facility] [address] [place] [address], * EXTRA TUBE GOLD/SST (04/06/2024 2:45 PM CONTENT MANAGEMENT CONSULTANT) Blood BLOOD SPECIMEN / Unknown Extra Tube / Unknown 04/06/2024 2:45 PM CONTENT MANAGEMENT CONSULTANT 04/06/2024 4:05 PM CONTENT MANAGEMENT CONSULTANT Charly Monroe MD LABORATORY Final Res ult [facility] [address] [place] [address], * TSH WITH REFLEX (04/06/2024 2:45 PM CONTENT MANAGEMENT CONSULTANT) TSH 3.73 0.35 - 4.94 uIU/mL 04/06/2024 3:43 PM CONTENT MANAGEMENT CONSULTANT [facility] Blood BLOOD SPECIMEN / Unknown IV Start / Unknown 04/06/2024 2:45 PM CONTENT MANAGEMENT CONSULTANT 04/06/2024 3:00 PM CONTENT MANAGEMENT CONSULTANT us Jun Mar MD CHEMISTRY Final Result Performing Organization Address City/[facility]/ZIP Co de Phone Number [facility] [address] [place] [address], [place] [phone] * (ABNORMAL) BRAIN NATRIURETIC PEPTIDE (04/06/2024 2:45 PM CONTENT MANAGEMENT CONSULTANT) BRAIN JEANCARLOS PEPTIDE 993(H) <100 pg/mL 04/06/2024 3:30 PM CONTENT MANAGEMENT CONSULTANT [facility] Blood BLOOD SPECIMEN / Unknown IV Start / Unknown 04/06/2024 2:45 PM CONTENT MANAGEMENT CONSULTANT 04/06/2024 3:05 PM CONTENT MANAGEMENT CONSULTANT us Charly Monroe MD CHEMISTRY Final Res ult Performing Organization Address City/[facility]/ZIP Co de Phone Number [facility] [place] [address] [place] [address], [place] [phone] * SLIDE REVIEW (04/06/2024 2:45 PM CONTENT MANAGEMENT CONSULTANT) POIKILOCYTOSIS 1+ 04/06/2024 3:35 PM CONTENT MANAGEMENT CONSULTANT [facility] POLYCHROMASIA 1+ 04/06/2024 3:35 PM CONTENT MANAGEMENT CONSULTANT [facility] MORPHOLOGY COMMENT Ovalocytes Present 04/06/2024 3:35 PM CONTENT MANAGEMENT CONSULTANT [facility] MORPHOLOGY COMMENT Stomatocytes Present 04/06/2024 3:35 PM CONTENT MANAGEMENT CONSULTANT [facility] PLT COMMENT Adequate 04/06/2024 3:35 PM CONTENT MANAGEMENT CONSULTANT [facility] Blood BLOOD SPECIMEN / Unknown IV Start / Unknown 04/06/2024 2:45 PM CONTENT MANAGEMENT CONSULTANT 04/06/2024 3:00 PM CONTENT MANAGEMENT CONSULTANT us Jun Mar MD LABORATORY Final Result Performing Organization Address City/[facility]/ZIP Co de [place] [address], * (ABNORMAL) Heparin Level ( aka XA) (04/06/2024 2:45 PM CONTENT MANAGEMENT CONSULTANT) HEPARIN LEVEL <0.04(LL) 0.32 - 0.63 U/mL 04/06/2024 7:11 PM CONTENT MANAGEMENT CONSULTANT [facility] Blood BLOOD SPECIMEN / Unknown IV Start / Unknown 04/06/2024 2:45 PM CONTENT MANAGEMENT CONSULTANT 04/06/2024 6:09 PM CONTENT MANAGEMENT CONSULTANT us Jun Mar MD HEMATOLOGY Final Result [facility] [address] [place] [address], * APTT (04/06/2024 2:45 PM CONTENT MANAGEMENT CONSULTANT) APTT 28 25 - 37 sec 04/06/2024 6:20 PM CONTENT MANAGEMENT CONSULTANT [facility] Blood BLOOD SPECIMEN / Unknown IV Start / Unknown 04/06/2024 2:45 PM CONTENT MANAGEMENT CONSULTANT 04/06/2024 6:09 PM CONTENT MANAGEMENT CONSULTANT Narrative [facility] - 04/06/2024 6:20 PM CONTENT MANAGEMENT CONSULTANT Therapeutic Range 64-83 seconds. us Jun Mar MD HEMATOLOGY Final Result [facility] [address] [place] [address], * SCAN-CARDIAC STRIP (04/06/2024 12:00 AM CONTENT MANAGEMENT CONSULTANT) Narrative 04/06/2024 12:00 AM CONTENT MANAGEMENT CONSULTANT Ordered by an unspecified provider. Other Clinical Staff OTHER Final Resul t * SCAN-CARDIAC STRIP (04/06/2024 12:00 AM CONTENT MANAGEMENT CONSULTANT) Narrative 04/06/2024 12:00 AM CONTENT MANAGEMENT CONSULTANT Ordered by an unspecified provider. Other Clinical Staff OTHER Final Resul t * SCAN-CARDIAC STRIP (03/22/2024 12:00 AM CONTENT MANAGEMENT CONSULTANT) Narrative 03/22/2024 12:00 AM CONTENT MANAGEMENT CONSULTANT Ordered by an unspecified provider. us Other Clinical Staff OTHER Final Resul t * SCAN-CARDIAC STRIP (03/15/2024 12:00 AM CONTENT MANAGEMENT CONSULTANT) Narrative 03/15/2024 12:00 AM CONTENT MANAGEMENT CONSULTANT Ordered by an unspecified provider. us Other Clinical Staff OTHER Final Resul t * SCAN-CARDIAC STRIP (03/08/2024 12:00 AM CONTENT MANAGEMENT CONSULTANT) Narrative 03/08/2024 12:00 AM CONTENT MANAGEMENT CONSULTANT Ordered by an unspecified provider. Other Clinical Staff OTHER Final Resul t * SCAN-CARDIAC STRIP (03/01/2024 12:00 AM CONTENT MANAGEMENT CONSULTANT) Narrative 03/01/2024 12:00 AM CONTENT MANAGEMENT CONSULTANT Ordered by an unspecified provider. us Other Clinical Staff OTHER Final Resul t * SCAN-CARDIAC STRIP (03/01/2024 12:00 AM CONTENT MANAGEMENT CONSULTANT) Narrative 03/01/2024 12:00 AM CONTENT MANAGEMENT CONSULTANT Ordered by an unspecified provider. Other Clinical Staff OTHER Final Resul t * SCAN-CARDIAC STRIP (03/01/2024 12:00 AM CONTENT MANAGEMENT CONSULTANT) Narrative 03/01/2024 12:00 AM CONTENT MANAGEMENT CONSULTANT Ordered by an unspecified provider. us Other Clinical Staff OTHER Final Resul t * SCAN-CARDIAC STRIP (03/01/2024 12:00 AM CONTENT MANAGEMENT CONSULTANT) Narrative 03/01/2024 12:00 AM CONTENT MANAGEMENT CONSULTANT Ordered by an unspecified provider. us Other Clinical Staff OTHER Final Resul t * CT ABDOMEN PELVIS WO (01/16/2024 4:53 AM CONTENT MANAGEMENT CONSULTANT) Anatomical Region Laterality Modality Abdomen, Pelvis, AORTA, LIVER, SPLEEN Computed Tomography 01/16/2024 4:53 AM CONTENT MANAGEMENT CONSULTANT Impressions 01/16/2024 5:21 AM CONTENT MANAGEMENT CONSULTANT 1. No obstructing ureteral or bladder calculi. [...] fat-containing umbilical hernia. Narrative 01/16/2024 5:21 AM CONTENT MANAGEMENT CONSULTANT For Patients: As a result of the Cures Act, medical imaging exams and procedure reports are released immediately into your electronic medical record. You may view this report before your referring provider. If you have questions, please contact your health care provider. EXAM: CT ABDOMEN PELVIS WO LOCATION: [facility] DATE: 01/16/2024 INDICATION: Abdominal pain, acute, nonlocalized. [...] provider. EXAM: CT ABDOMEN PELVIS WO LOCATION: [facility] DATE: 01/16/2024 INDICATION: Abdominal pain, acute, nonlocalized. [...] 105 <=200 mg/dL 11/20/2023 3:06 PM CDT [facility] TRIGLYCERIDES 103 <150 mg/dL 11/20/2023 3:06 PM CDT [facility] HDL CHOLESTEROL 33(L) >40 mg/dL 3:06 PM CDT [facility] CHOL/HDL RATIO 3.18 <=4.00 11/20/2023 3:06 PM CDT [facility] LDL CHOLESTEROL 51 <=130 mg/dL 11/20/2023 3:06 PM CDT [facility] PATIENT STATUS NON-FASTI NG 11/20/2023 3:06 PM CDT [facility] Blood BLOOD SPECIMEN / Unknown Venipuncture / Unknown 11/20/2023 1:57 PM CDT 11/20/2023 2:09 PM CDT us Shana Lozano DO CHEMISTRY Final Result [facility] [address] [place] [address], [place] [phone] * CT CHEST SCREENING LOW DOSE WO [...] DOSE LUNG CANCER SCREENING CT CHEST LOCATION: [facility] DATE: 08/07/2023 INDICATION: Lung cancer screening. [...] DOSE LUNG CANCER SCREENING CT CHEST LOCATION: [facility] DATE: 08/07/2023 INDICATION: Lung cancer screening. [...] CDT) HEPATITIS C ANTIBODY Non-Reacti ve Non-React lisa 06/11/2022 4:14 PM CDT [facility] Comment:Antibodies to HCV no t detected; does not exclude the possibility of exposure to HCV. Blood BLOOD SPECIMEN / Unknown Venipuncture / Unknown 06/11/2022 2:16 PM CDT 06/11/2022 2:17 PM CDT Shananicolas Lozano DO SEND OUTS Final Result Performing Organization Address [facility] Co de Phone Number [place] [address] [place] [address], [place] [phone] * HM COLONOSCOPY (08/14/2011) COLONOSCOPY Done [facility] 08/14/2011 Doctor Unknown HEALTH MAINT RESULTS Final Resul t Performing Organization Address [facility] Co de Phone Number [facility] [address] [place] [address], [place] [phone] from Last 3 Months or Most Recently Relevant to Health Maintenance Insurance [facility] DUAL COMPLETE MEDICARE PART A HB ONLY [facility] MR APT [id number] [id number] [facility] PPS Advance Directives Documents on File Type Date Recorded Patient Mail List Librarian Expl anation Healthcare Directive 04/20/2024 5:43 AM [...] Code Status Discussion: Reviewed Preferences Care Teams Outreach Representative Relationship Specialty Start Date End Date Sadi Paul MD [address] [place] [address] PCP - General Family Practice 05/13/24 [facility] [address] [place] [address] 04/21/24
--- NOTE | 2024-05-16 15:01 | CRLHL7_ITS ---
For Patients: As a result of the Cures Act, medical imaging exams and procedure reports are released immediately into your electronic medical record. You may view this report before your referring provider. If you have questions, please contact your health care provider. INDICATION: : WEAKNESS COMPARISON: None TECHNIQUE: One view(s) of the chest FINDINGS: Left chest wall dual lead ICD. The cardiomediastinal silhouette and pulmonary vasculature are unremarkable. There is no focal airspace consolidation, pleural effusion, or pneumothorax. No displaced fractures. IMPRESSION: No acute cardiopulmonary process. Dictated by Jona Tarango MD @ 05/16/2024 3:31:13 PM (Electronically Signed)
--- NOTE | 2024-05-16 15:07 | ED_ITS ---
HPI - Dizziness General Chief Complaint: Dizziness/Vertigo <Martir Zamora MD - Last Filed: 05/17/24 07:29> Stated Complaint: Dizzyness <Martir Zamora MD - Last Filed: 05/17/24 07:29> Time Seen by Provider: 05/16/24 14:52 <Martir Zamora MD - Last Filed: 05/17/24 07:29> History of Present Illness HPI Narrative: Patient is a 73-year-old gentleman who comes in today with headache lightheadedness and general malaise. He has a complex history most notably for congestive heart failure with ejection fraction of 20%. And is contemplating entering hospice. Patient has history of coronary artery disease with 2 stents in the past. He has a status post cardioversion of atrial fibrillation but is still on Coumadin. Patient was seen in the emergency room last night for a skin tear which was treated with dressing changes. He woke this morning does not feeling well lightheaded dizzy general malaise body aches fatigue. Patient presents to the emergency room via EMS. Vital signs stable and route. Upon arrival EKG shows atrial paced rhythm with obvious left axis deviation. No obvious diagnostic ST or T-wave changes. <Maritr Zamora MD - Last Filed: 05/17/24 07:29> Related Data Home Medications: Home Medications ?Medication ?Instructions ?Recorded ?Confirmed albuterol 90 mcg/actuation aerosol 1 - 2 mcg inhalation .every 4-6 05/11/24 05/16/24 inhaler hrs PRN ondansetron 4 mg disintegrating mg PO DAILY PRN 05/11/24 05/11/24 tablet dobutamine 250 mg/20 mL (12.5 mg 05/16/24 mg/mL) intravenous solution <Martir Zamora MD - Last Filed: 05/17/24 07:29> Allergies/Adverse Reactions: Allergies Allergy/AdvReac Type Severity Reaction Status Date / Time codeine Allergy Severe dizzniness/ Verified 05/16/24 15:01 nausea <Martir Zamora MD - Last Filed: 05/17/24 07:29> Review of Systems Status of ROS: Reports: 10 or more systems reviewed and unremarkable except as noted in History and below <Martir Zamora MD - Last Filed: 05/17/24 07:29> [facility] Medical History: Medical History (Updated 05/16/24 @ 19:27 by Segundo Steen MD) Gout ?M10.9 - Gout, unspecified (ICD-10) Hyperlipidemia ?E78.5 - Hyperlipidemia, unspecified (ICD-10) Severe mitral regurgitation by prior echocardiogram ?I34.0 - Nonrheumatic mitral (valve) insufficiency (ICD-10) Chronic heart failure with reduced ejection fraction (HFrEF, <= 40%) ?I50.22 - Chronic systolic (congestive) heart failure (ICD-10) TIARRA (obstructive sleep apnea) (07/03/17) ?G47.33 - Obstructive sleep apnea (adult) (pediatric) (ICD-10) Unspecified essential hypertension (05/26/13) ?I10 - Essential (primary) hypertension (ICD-10) Pure hypercholesterolemia (12/07/20) ?E78.00 - Pure hypercholesterolemia, unspecified (ICD-10) Pulmonary emphysema (02/12/21) ?J43.9 - Emphysema, unspecified (ICD-10) Lactic acidosis (04/07/24) ?E87.20 - Acidosis, unspecified (ICD-10) Ischemic cardiomyopathy (12/07/20) ?I25.5 - Ischemic cardiomyopathy (ICD-10) Chronic kidney disease, stage 3b (06/19/23) ?N18.32 - Chronic kidney disease, stage 3b (ICD-10) Cardiogenic shock (04/07/24) ?R57.0 - Cardiogenic shock (ICD-10) Atrial fibrillation with rapid ventricular response (04/07/24) ?I48.91 - Unspecified atrial fibrillation (ICD-10) Acute renal failure superimposed on stage 3b chronic kidney disease (04/07/24) ?N17.9 - Acute kidney failure, unspecified (ICD-10) ?N18.32 - Chronic kidney disease, stage 3b (ICD-10) Acute on chronic systolic and diastolic heart failure, NYHA class 3 (04/07/24) ?I50.43 - Acute on chronic combined systolic (congestive) and diastolic (congestive) heart failure (ICD-10) Acute GI bleeding (04/07/24) ?K92.2 - Gastrointestinal hemorrhage, unspecified (ICD-10) <Martir Zamora MD - Last Filed: 05/17/24 07:29> Surgical History: Surgical History Status post appendectomy ?Z90.49 - Acquired absence of other specified parts of digestive tract (ICD- 10) Status post lumbar laminectomy ?Z98.890 - Other specified postprocedural states (ICD-10) Status post coronary artery stent placement ?Z95.5 - Presence of coronary angioplasty implant and graft (ICD-10) <Martir Zamora MD - Last Filed: 05/17/24 07:29> Family History: Family History Mother Breast cancer Father Colon cancer <Martir Zamora MD - Last Filed: 05/17/24 07:29> Social History: Social History Narrative: . Single. 2 children. Now lives with daughter and grandson. Recently moved from [place], where he was living alone, independently. Retired. Designates daughter, Chan, as medical decision maker if he is not able to speak on his own behalf, . DNR DNI resuscitation status. Follows with [facility]. Considering the possibility of hospice services. Former smoker. Does not drink alcohol. What is your current living situation?: I presently have a place to live Problems where you live: no known problems Problems where you live details: N/A In the past 12 months, utilities in danger of being shut off: no In past 12 months, lack of transportation kept you from medical appts, meetings, work, or getting things needed for daily living: no In the past 12 mos, have been you worried that your food would run out before you had money to buy more?: never true In the past 12 mos, the food you bought just didn't last and you didn't have money to buy more?: never true Highest level of school completed/degree received: Associate degree: occupational, technical, vocational program Smoking Status: Never smoker Do you use any of these nicotine containing products: None Second hand tobacco smoke exposure: No How often do you have a drink containing alcohol: never How often do you have six or more drinks on one occasion: Never AUDIT-C Alcohol total score: 0 Non-prescribed substance use: denies use Caffeine: No How often does anyone, including family, friends and others, physically hurt you : never How often does anyone, including family, friends and others, insult or talk down to you: never How often does anyone, including family, friends and others, threaten you with harm: never How often does anyone, including family, friends and others, scream or curse at you: never service: No <Martir Zamora MD - Last Filed: 05/17/24 07:29> Exam Narrative: Exam Narrative: EXAM GENERAL: Patient appears chronically ill. EYES: No scleral icterus. LYMPH: No supraclavicular or cervical lymphadenopathy. SKIN: Visible skin seen during exam normal or with benign process only. EXT: No dependent lower extremity pedal edema. Skin tear on the left hand appears to be healing well. HEART: Distant heart tones noted. LUNGS: Scattered rhonchi bilaterally. ABD: Soft, non tender, non distended. PSYCH: Good eye contact, speech is not pressured. <Martir Zamora MD - Last Filed: 05/17/24 07:29> Const: Vital Signs, click to edit/add: Vital Signs - 24 hr 05/16/24 14:57 05/16/24 15:58 05/16/24 17:59 Temperature 97 F L 98.0 F Pulse Rate [Right Pulse Oximeter] 70 65 64 Respiratory Rate 18 16 16 Blood Pressure [Le ft Upper Arm] 119/85 117/82 124/80 Pulse Oximetry 100 98 98 Oxygen Delivery Me thod Room Air Room Air Room Air <Martir Zamora MD - Last Filed: 05/17/24 07:29> Vital Signs, click to edit/add: Vital Signs - 24 hr 05/16/24 14:57 05/16/24 15:58 05/16/24 17:59 Temperature 97 F L 98.0 F Pulse Rate [Right Pulse Oximeter] 70 65 64 Respiratory Rate 18 16 16 Blood Pressure [Le ft Upper Arm] 119/85 117/82 124/80 Pulse Oximetry 100 98 98 Oxygen Delivery Me thod Room Air Room Air Room Air <Dante Aguirre MD - Last Filed: 05/16/24 17:45> Course Course ED Course: Patient has complex patient presenting with vague symptoms. I did send off CBC comprehensive metabolic panel troponin chest x-ray UA. Will plan to reassess after labs are back. Appears hemodynamically stable currently. <Martir Zamora MD - Last Filed: 05/17/24 07:29> Vital Signs Vital signs: Initial Vital Signs Temperature 97 F L 05/16/24 14:57 Temperature Source Temporal Artery Scan 05/16/24 14:57 Pulse Rate 70 05/16/24 14:57 Pulse Rhythm Regular 05/16/24 14:57 Pulse Strength 3+ Normal 05/16/24 14:57 Respiratory Rate 18 05/16/24 14:57 Blood Pressure 119/85 05/16/24 14:57 Blood Pressure Mean 96 05/16/24 14:57 Blood Pressure Position Semi-Fowlers 05/16/24 14:57 Pulse Oximetry 100 05/16/24 14:57 Oxygen Delivery Method Room Air 05/16/24 14:57 Vital Signs Temperature 97 F L 05/16/24 14:57 Pulse Rate 70 05/16/24 14:57 Respiratory Rate 18 05/16/24 14:57 Blood Pressure 119/85 05/16/24 14:57 Pulse Oximetry 100 05/16/24 14:57 Oxygen Delivery Method Room Air 05/16/24 14:57 Temperature 97.3 F L 05/17/24 03:00 Pulse Rate 70 05/17/24 03:00 Respiratory Rate 18 05/17/24 03:00 Blood Pressure 111/79 05/17/24 03:00 Pulse Oximetry 98 05/17/24 03:00 Oxygen Delivery Method Nasal Cannula 05/17/24 03:00 Oxygen Flow Rate 1 05/17/24 03:00 <Martir Zamora MD - Last Filed: 05/17/24 07:29> Initial Vital Signs Temperature 97 F L 05/16/24 14:57 Temperature Source Temporal Artery Scan 05/16/24 14:57 Pulse Rate 70 05/16/24 14:57 Pulse Rhythm Regular 05/16/24 14:57 Pulse Strength 3+ Normal 05/16/24 14:57 Respiratory Rate 18 05/16/24 14:57 Blood Pressure 119/85 05/16/24 14:57 Blood Pressure Mean 96 05/16/24 14:57 Blood Pressure Position Semi-Fowlers 05/16/24 14:57 Pulse Oximetry 100 05/16/24 14:57 Oxygen Delivery Method Room Air 05/16/24 14:57 Vital Signs Temperature 97 F L 05/16/24 14:57 Pulse Rate 70 05/16/24 14:57 Respiratory Rate 18 05/16/24 14:57 Blood Pressure 119/85 05/16/24 14:57 Pulse Oximetry 100 05/16/24 14:57 Oxygen Delivery Method Room Air 05/16/24 14:57 Temperature 97.3 F L 05/17/24 03:00 Pulse Rate 70 05/17/24 03:00 Respiratory Rate 18 05/17/24 03:00 Blood Pressure 111/79 05/17/24 03:00 Pulse Oximetry 98 05/17/24 03:00 Oxygen Delivery Method Nasal Cannula 05/17/24 03:00 Oxygen Flow Rate 1 05/17/24 03:00 <Dante Aguirre MD - Last Filed: 05/16/24 17:45> Medications Administered Medications: Generic Name Dose Route Start Last Admin Trade Name Freq PRN Reason Stop Dose Admin Albuterol/Ipratropium 1 neb 05/16/24 19:15 05/17/24 03:02 Iprat-Albut 0.5-2.5 Mg/3 Ml Neb IH Not Given Q4H KELLI Atorvastatin Calcium 40 mg 05/16/24 21:00 05/16/24 20:59 Atorvastatin Calcium 40 Mg Tablet PO 40 mg HS KELLI Administration Guaifenesin 1,200 mg 05/16/24 21:00 05/16/24 21:00 Guaifenesin 600 Mg Tab.Er.12h PO 1,200 mg BID KELLI Administration Lorazepam 0.5 mg 05/16/24 18:50 05/17/24 02:59 Lorazepam 0.5 Mg Tablet PO 0.5 mg Q6H PRN Administration Nausea And Vomiting Midodrine 2.5 mg 05/16/24 21:00 05/16/24 21:15 Midodrine Hcl 5 Mg Tablet PO 2.5 mg TID KELLI Administration Omeprazole 20 mg 05/16/24 21:00 05/16/24 21:01 [address]eprazole [address] PO 20 mg BID KELLI Administration Ondansetron HCl 4 mg 05/16/24 18:50 05/17/24 05:26 Ondansetron 2 Mg/Ml Inj IVP 4 mg Q4H PRN Administration Nausea Sodium Chloride 5 ml 05/16/24 21:00 05/16/24 21:00 Sodium Chloride 0.9 % (Flush) 10 Ml Syringe IVF 5 ml BID KELLI Administration Discontinued Medications Generic Name Dose Route Start Last Admin Trade Name Frekrishna PRN Reason Stop Dose Admin Sodium Chloride 500 mls @ 500 mls/hr 05/16/24 15:01 05/16/24 16:27 0.9 % Sodium Chloride 500 Ml IV 05/16/24 16:00 Infused .Q1H ONE Infusion Potassium Chloride 10 meq in 100 mls @ 100 mls/hr 05/16/24 16:27 05/16/24 18:00 Potassium Chloride IVPB 05/16/24 17:26 Infused ONCE ONE Infusion Morphine Sulfate 2 mg 05/16/24 16:23 05/16/24 16:39 Morphine 2 Mg/Ml Inj IVP 05/16/24 16:24 2 mg ONCE ONE Administration Ondansetron HCl 4 mg 05/16/24 15:50 05/16/24 15:50 Ondansetron 2 Mg/Ml Inj IVP 4 mg ONCE PRN Administration Ondansetron HCl 4 mg 05/16/24 16:23 05/16/24 16:39 Ondansetron 2 Mg/Ml Inj IVP 05/16/24 16:24 4 mg ONCE ONE Administration <Martir Zamora MD - Last Filed: 05/17/24 07:29> Generic Name Dose Route Start Last Admin Trade Name Frekrishna PRN Reason Stop Dose Admin Albuterol/Ipratropium 1 neb 05/16/24 19:15 05/17/24 03:02 Iprat-Albut 0.5-2.5 Mg/3 Ml Neb IH Not Given Q4H KELLI Atorvastatin Calcium 40 mg 05/16/24 21:00 05/16/24 20:59 Atorvastatin Calcium 40 Mg Tablet PO 40 mg HS KELLI Administration Guaifenesin 1,200 mg 05/16/24 21:00 05/16/24 21:00 Guaifenesin 600 Mg Tab.Er.12h PO 1,200 mg BID KLELI Administration Lorazepam 0.5 mg 05/16/24 18:50 05/17/24 02:59 Lorazepam 0.5 Mg Tablet PO 0.5 mg Q6H PRN Administration Nausea And Vomiting Midodrine 2.5 mg 05/16/24 21:00 05/16/24 21:15 Midodrine Hcl 5 Mg Tablet PO 2.5 mg TID KELLI Administration Omeprazole 20 mg 05/16/24 21:00 05/16/24 21:01 [address]eprazole [address] PO 20 mg BID KELLI Administration Ondansetron HCl 4 mg 05/16/24 18:50 05/17/24 05:26 Ondansetron 2 Mg/Ml Inj IVP 4 mg Q4H PRN Administration Nausea Sodium Chloride 5 ml 05/16/24 21:00 05/16/24 21:00 Sodium Chloride 0.9 % (Flush) 10 Ml Syringe IVF 5 ml BID KELLI Administration Discontinued Medications Generic Name Dose Route Start Last Admin Trade Name Freq PRN Reason Stop Dose Admin Sodium Chloride 500 mls @ 500 mls/hr 05/16/24 15:01 05/16/24 16:27 0.9 % Sodium Chloride 500 Ml IV 05/16/24 16:00 Infused .Q1H ONE Infusion Potassium Chloride 10 meq in 100 mls @ 100 mls/hr 05/16/24 16:27 05/16/24 18:00 Potassium Chloride IVPB 05/16/24 17:26 Infused ONCE ONE Infusion Morphine Sulfate 2 mg 05/16/24 16:23 05/16/24 16:39 Morphine 2 Mg/Ml Inj IVP 05/16/24 16:24 2 mg ONCE ONE Administration Ondansetron HCl 4 mg 05/16/24 15:50 05/16/24 15:50 Ondansetron 2 Mg/Ml Inj IVP 4 mg ONCE PRN Administration Ondansetron HCl 4 mg 05/16/24 16:23 05/16/24 16:39 Ondansetron 2 Mg/Ml Inj IVP 05/16/24 16:24 4 mg ONCE ONE Administration <Dante Aguirre MD - Last Filed: 05/16/24 17:45> MDM - Dizziness MDM Narrative Medical decision making narrative: Addendum 4:25 p.m.: Patient continues to have a mild headache and some upset stomach. He feels little better since he got the Zofran fluid. He has a chronic dobutamine pump. Please see Dr. Right schulz his note. The patient because of his continued abdominal discomfort, I think she get a CT of his abdomen for completeness. Will determine if he has an intra-abdominal pathology such as diverticulitis or other issue. His COVID and influenza test are pending. He still complains of a mild headache and some stomach ache he has a benign abdomen on examination no rebound or peritonitis. A given 2 mg of morphine IV, would also give him additional Zofran 4 mg IV and will get a CT without contrast given his chronic renal failure. We will review his labs as they return. Dr. Mcfadden has been updated regarding his status if he needs admission or observation status. The patient has a potassium 2.9, will get a 10 milk Kassy pump of IV potassium. Addendum 5:44 p.m.: Patient CT of the abdomen looks pretty unremarkable, the patient continues to have dry heaves and feels ill. He has a headache and s tomach ache. His CT is abdomen is negative as mention is labs look pretty reassuring others potassium whic was replaced IV bump. Given the patient's condition I think IV fluid and observation and antiemetics IV might be appropriate for observation status and he will be put in the hospit Dr. Sanchez kindly accepts for the hospitalist service. <Dante Aguirre MD - Last Filed: 05/16/24 17:45> Lab Data Labs: Lab Results 05/16/24 05/16/24 Range/Units 15:30 15:33 WBC 8.82 (4.50-11.00) K/uL RBC 4.17 L (4.30-5.90) m/uL Hgb 11.4 L (13.5-17.5) gm/dL Hct 36.5 L (37.0-53.0) % MCV 88 (80-100) fL MCH 27 (26-34) pg MCHC 31 L (32-36) gm/dL RDW Coeff of Dia 19.6 H (11.5-15.5) % Plt Count 206 (140-440) K/uL Neut % (Auto) 83.5 H (42.0-72.0) % Lymph % (Auto) 6.8 L (20-44) % [place] % (Auto) 7.4 (0.0-11.0) % Eos % (Auto) 1.4 (0.0-7.0) % Baso % (Auto) 0.2 (0.0-3.0) % Neut # (Auto) 7.40 H (1.7-7.0) K/uL Lymph # (Auto) 0.60 L (0.90-2.90) K/uL [place] # (Auto) 0.70 (0.00-0.90) K/UL Eos # (Auto) 0.12 (0.00-0.50) K/uL Baso # (Auto) 0.02 (0.00-0.30) K/uL Abs Immat Gran (auto) 0.06 (0.00-0.30) K/uL Imm/Tot Granulo (auto) 0.7 % INR 1.89 H (0.91-1.10) Sodium 136 (135-149) mmol/L Potassium 2.9 L* (3.6-5.1) mmol/L Chloride 100 (96-114) mmol/L Carbon Dioxide 20 (20-32) mmol/L Anion Gap 16 H (7-15) mEq/L BUN 35 H (7-30) mg/dL Creatinine 2.2 H (0.5-1.5) mg/dL Estimated Creat Clear 29.36 Estimated GFR 31 ml/min Glucose 150 H (60-115) mg/dL Lactate 3.2 H (0.5-1.9) mmol/L Calcium 8.6 (8.4-10.6) mg/dL Total Bilirubin 1.9 H (0.1-1.5) mg/dL AST 16 (12-35) U/L ALT 15 (4-50) U/L Alkaline Phosphatase 110 (40-150) U/L Troponin I 0.04 (0.01-0.04) ng/mL Total Protein 6.5 (6.0-8.3) g/dL Albumin 4.0 (3.3-5.0) g/dL Lipase 53 (23-300) U/L SARS-CoV-2 (PCR) Negative SARS-CoV-2 (Negative) Influenza Type A (PCR) Negative PCR FLU A (Negative) Influenza Type B (PCR) Negative PCR FLU B (Negative) RSV (PCR) Negative PCR RSV (Negative) <Mcmahan J Reister, MD - Last Filed: 05/17/24 07:29> Lab Results 05/16/24 05/16/24 Range/Units 15:30 15:33 WBC 8.82 (4.50-11.00) K/uL RBC 4.17 L (4.30-5.90) m/uL Hgb 11.4 L (13.5-17.5) gm/dL Hct 36.5 L (37.0-53.0) % MCV 88 (80-100) fL MCH 27 (26-34) pg MCHC 31 L (32-36) gm/dL RDW Coeff of Dia 19.6 H (11.5-15.5) % Plt Count 206 (140-440) K/uL Neut % (Auto) 83.5 H (42.0-72.0) % Lymph % (Auto) 6.8 L (20-44) % [place] % (Auto) 7.4 (0.0-11.0) % Eos % (Auto) 1.4 (0.0-7.0) % Baso % (Auto) 0.2 (0.0-3.0) % Neut # (Auto) 7.40 H (1.7-7.0) K/uL Lymph # (Auto) 0.60 L (0.90-2.90) K/uL [place] # (Auto) 0.70 (0.00-0.90) K/UL Eos # (Auto) 0.12 (0.00-0.50) K/uL Baso # (Auto) 0.02 (0.00-0.30) K/uL Abs Immat Gran (auto) 0.06 (0.00-0.30) K/uL Imm/Tot Granulo (auto) 0.7 % INR 1.89 H (0.91-1.10) Sodium 136 (135-149) mmol/L Potassium 2.9 L* (3.6-5.1) mmol/L Chloride 100 (96-114) mmol/L Carbon Dioxide 20 (20-32) mmol/L Anion Gap 16 H (7-15) mEq/L BUN 35 H (7-30) mg/dL Creatinine 2.2 H (0.5-1.5) mg/dL Estimated Creat Clear 29.36 Estimated GFR 31 ml/min Glucose 150 H (60-115) mg/dL Lactate 3.2 H (0.5-1.9) mmol/L Calcium 8.6 (8.4-10.6) mg/dL Total Bilirubin 1.9 H (0.1-1.5) mg/dL AST 16 (12-35) U/L ALT 15 (4-50) U/L Alkaline Phosphatase 110 (40-150) U/L Troponin I 0.04 (0.01-0.04) ng/mL Total Protein 6.5 (6.0-8.3) g/dL Albumin 4.0 (3.3-5.0) g/dL Lipase 53 (23-300) U/L SARS-CoV-2 (PCR) Negative SARS-CoV-2 (Negative) Influenza Type A (PCR) Negative PCR FLU A (Negative) Influenza Type B (PCR) Negative PCR FLU B (Negative) RSV (PCR) Negative PCR RSV (Negative) <Dante Aguirre MD - Last Filed: 05/16/24 17:45> Discharge Plan Discharge Clinical Impression: Mild nausea and vomiting, Congestive heart failure <Martir Zamora MD - Last Filed: 05/17/24 07:29>
[2024-05-16] MEDS: 0.9 % SODIUM CHLORIDE 500 ML 500 ML IV (15:42)
[2024-05-16] MEDS: ONDANSETRON 2 MG/ML inj 4 MG IVP ×3 (15:50→21:09)
[2024-05-16 15:53] LABS: Lactate* 3.2 mmol/L (0.5-1.9)
[2024-05-16 15:54] LABS: Basophils Absolute Auto 0.02 K/uL (0.00-0.30); Basophils Percent Auto 0.2 % (0.0-3.0); Eosinophils Absolute Auto 0.12 K/uL (0.00-0.50); Eosinophils Percent Auto 1.4 % (0.0-7.0); Hematocrit 36.5 % (37.0-53.0); Hemoglobin* 11.4 gm/dL (13.5-17.5); Immature Granulocytes Abs Auto 0.06 K/uL (0.00-0.30); Immature Granulocytes Pct Auto 0.7 %; Lymphocytes Percent Auto 6.8 % (20-44); Mean Corpuscular HGB Conc 31 gm/dL (32-36); Mean Corpuscular Hemoglobin 27 pg (26-34); Mean Corpuscular Volume 88 fL (80-100); Monocytes Percent Auto 7.4 % (0.0-11.0); Neutrophils Percent Auto 83.5 % (42.0-72.0); Platelet Count* 206 K/uL (140-440); RDW Coefficient of Variation % 19.6 % (11.5-15.5); Red Blood Count 4.17 m/uL (4.30-5.90); White Blood Count* 8.82 K/uL (4.50-11.00)
[2024-05-16 15:58] LABS: Slide Review Reflex No
[2024-05-16 16:15] LABS: Chloride* 100 mmol/L (96-114); Sodium* 136 mmol/L (135-149)
[2024-05-16 16:18] LABS: Alanine Aminotransferase* 15 U/L (4-50); Alkaline Phosphatase* 110 U/L (40-150); Anion Gap 16 mEq/L (7-15); Aspartate Amino Transferase* 16 U/L (12-35); Bilirubin Total* 1.9 mg/dL (0.1-1.5); Blood Urea Nitrogen* 35 mg/dL (7-30); Calcium* 8.6 mg/dL (8.4-10.6); Carbon Dioxide* 20 mmol/L (20-32); Creatinine* 2.2 mg/dL (0.5-1.5); Est. Creatinine Clearance* 29.36; Estimated Glomerular Filt Rate 31 ml/min; Glucose* 150 mg/dL (60-115); INR 1.89 (0.91-1.10); Lipase* 53 U/L (23-300); Prothrombin Time 22.7 Seconds; Total Protein* 6.5 g/dL (6.0-8.3)
--- NOTE | 2024-05-16 16:24 | CRLHL7_ITS ---
For Patients: As a result of the Century Cures Act, medical imaging exams and procedure reports are released immediately into your electronic medical record. You may view this report before your referring provider. If you have questions, please contact your health care provider. INDICATION: Abdominal pain vomiting TECHNIQUE: CT abdomen and pelvis without contrast. COMPARISON: None. FINDINGS: Lower chest: Small effusions bilaterally. The heart is enlarged. Dense coronary artery calcification. Emphysema. Interlobular septal thickening may represent pulmonary edema basilar atelectasis. Liver: Normal in size and attenuation. No suspicious masses. Gallbladder and bile ducts: Possible stones and or sludge in the gallbladder. Pancreas: Unremarkable. No mass or inflammation. Spleen: Normal in size. No masses. Adrenal glands: Normal in size. No nodules. Kidneys: Cortical scarring bilaterally low-attenuation lesions in the kidneys are incompletely assessed. No hydronephrosis. GI tract: Unremarkable. Normal in caliber. No sign of mass or inflammation. Diverticulosis. Vasculature: Abdominal aorta is normal in caliber. Lymph nodes: No lymphadenopathy. Peritoneum/Abdominal Wall: Small fat containing umbilical hernia hernias. Small fat containing inguinal Pelvis: Large prostate gland. Bones: Unremarkable for age. IMPRESSION: 1. No acute findings in the abdomen or pelvis. 2. Tiny effusions bilaterally interlobular septal thickening which can be seen with pulmonary edema Please note that all CT scans at this facility use dose modulation, iterative reconstruction, and/or weight-based dosing when appropriate to reduce radiation dose to as low as reasonably achievable. Dictated by Arline Mota MD @ 05/16/2024 5:14:00 PM (Electronically Signed)
[2024-05-16 16:26] LABS: Potassium* 2.9 mmol/L (3.6-5.1)
[2024-05-16 16:30] LABS: Troponin I* 0.04 ng/mL (0.01-0.04)
[2024-05-16] MEDS: MORPHINE 2 MG/ML inj IVP (16:39)
[2024-05-16 16:40] LABS: PCR FLU A Negative PCR FLU A (Negative); PCR FLU B Negative PCR FLU B (Negative); PCR RSV Negative PCR RSV (Negative); SARS PCR* Negative SARS-CoV-2 (Negative)
--- OUTSIDE RECORDS SUMMARY | 2024-05-16 16:41 | XMS_ITS | Clinical Summary ---
Author Organization [facility] Address [address] [place] [id number] Care Team Providers Care Curer Acid Drum Name Role Phone Fausto Pilot [place] Ion Jones Unavailable Sadi Paul MD Primary [...] before meals. 90 Tablet 025 2:46 PM ROD PULLER 2024 Active pramipexole (MIRAPEX) 0.25 mg tabletIndications:Rest less leg Take one-half Tablet (0.125 mg) by mouth at bedtime. 30 Tablet 025 2:46 PM ROD PULLER 2024 Active sennosides (SENNA) 8.6 mg tabletIndications:Othe r constipation Take 1 to 2 Tablets (8.6-17.2 mg) by mouth two times daily. 60 Tablet 025 2:46 PM ROD PULLER 2024 Active warfarin (COUMADIN) 1 mg tabletIndications:Atri al fibrillation with rapid ventricular response (HC) Take 1 Tablet (1 mg) by mouth once daily. Take 1mg daily. INR check on Sunday 04/23. Further dosing instructions pending INR value at that time. 30 Tablet 025 2:46 PM ROD PULLER 2024 Active midodrine (PROAMATINE) 2.5 mg tabletIndications:Hypo tension, unspecified hypotension type Take 1 tablet (2.5mg) by mouth three times daily (at 8AM, 12PM, and 4PM) 90 Tablet 025 2:46 PM ROD PULLER 2024 Active amiodarone (CORDARONE) 200 mg tabletIndications:Atri al fibrillation with rapid ventricular response (HC) Take 1 tablet (200 mg) by mouth twice daily. Then on 05/02/24 decrease to 200 mg once daily 90 Tablet 1 025 2:46 PM ROD PULLER 2024 Active torsemide (DEMADEX) 20 mg tabletIndications:Acut e on chronic systolic and diastolic heart failure, NYHA class 3 (HC) Take one tablet by mouth as needed for weight gain of 3 lb in 1 day or 5 lb in 1 week 30 Tablet 2 025 5:30 PM ROD PULLER 2024 Active atorvastatin (LIPITOR) 40 mg tabletIndications:Pure hypercholesterolemia Take 1 Tablet (40 mg) by mouth once daily. 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 rika gout of foot, unspecified cause, unspecified [...] 75 mg tabletIndications:Daniele nary artery disease involving manchester coronary artery of [place]chester heart without angina pectoris TAKE 1 TABLET [...] health clinician.] 60 Tablet 025 5:30 PM ROD PULLER 04/26 Discontinued( *Allergic/Adv erse Rxn/Side Effects) amiodarone [...] and unspecified hyperlipidemia 05/26/2013 Coronary atherosclerosis of [place] coronary arianne ry 05/26/2013 Other B-complex deficiencies 02/11/2013 Regional enteritis of large intestine 10/22/2011 Type II or unspecified type diabetes mellitus without mention of complication, uncontrolled 02/14/2011 Acute on chronic systolic heart failure Resolved Problems Problem Noted Date Diagnosed Date Resolved Date Cellulitis and abscess of unspecified site 03/13/2013 03/17/2017 Coronary atherosclerosis of unspecified type of vessel, manchester or graft 02/11/2013 03/17/2017 Chest pain, unspecified 01/19/201303/03 Acute bronchitis 06/01/2012 03/17/2017 Acute conjunctivitis, unspecified 05/01/2012 03/17/2017 Other and unspecified noninf ectious gastroenteritis and colitis(558.9) 08/28/201103/17 Leukocytosis, unspecified 02/14/2011 Blood in stool 02/14/2011 03/17/2017 Acute gastritis without mention of hemorrhage 02/12/2003/17/2017 Encounters Date Type Department Care Team Description 05/15/19 Travel 05/15/19 Home Care Visit [facility] [address] [place] [phone] Monisha Yo, PARIKH CARE COORDINATION 05/14/19 4:00 PM CDT Home Care Visit [facility] [address] [place] [phone] Joceline Edouard IMPROVEMENT LEAD - HOME VISIT 05/14/19 1:00 PM CDT Home Care Visit [facility] [address] [place] [phone] Valentina Riley, RN SN - LONG VISIT (>90 MINUTES) 05/14/19 Telephone [facility] [address] [place] [phone] Valentina Riley, grants officer 05/12/19 10:30 AM CDT Home Care Visit [facility] [address] [place] [phone] Nicolas Sanz, PT PT - HOME VISIT 05/12/19 25 Home Care Visit [facility] [address] [place] [phone] Edis Camargo, DENTAL HYGIENE INSTRUCTOR CARE COORDINATION 05/12/19 Travel 05/11/19 3:00 PM CDT Home Care Visit [facility] [address] [place] [address] Joceline Edouard IMPROVEMENT LEAD - HOME VISIT 05/11/19 11:00 AM CDT Home Care Visit [facility] [address] [place] [phone] Valentina Riley, RN SN - HOME VISIT 05/10/19 Nurse Triage [facility] [address] [place] [address] Shana Lozano, DO Home Care; Diarrhea 05/08/19 4:00 PM ROD PULLER Home Care Visit [facility] [address] [place] [phone] Joceline Edouard IMPROVEMENT LEAD - HOME VISIT 05/08/19 10:30 AM ROD PULLER Home Care Visit [facility] [address] [place] [phone] Nicolas Sanz, PT PT - HOME VISIT 05/07/19 1:30 PM ROD PULLER Home Care Visit [facility] [address] [place] [phone] Valentina Riley, RN SN - LONG VISIT (>90 MINUTES) 05/07/19 Telephone [facility] [address] [phone] Valentina Riley, grants officer 05/05/19 1:30 PM ROD PULLER Home Care Visit [facility] [address] [place] [phone] Tiffany Fang, OT OT - HOME VISIT 05/05/19 10:30 AM ROD PULLER Home Care Visit [facility] [address] [place] [phone] Nicolas Sanz, PT PT - HOME VISIT 05/05/19 9:30 AM ROD PULLER Home Care Visit [facility] [address] [place] [phone] Joceline Edouard IMPROVEMENT LEAD - HOME VISIT 05/05/19 Travel 05/04/19 1:00 PM ROD PULLER Home Care Visit [facility] [address] [place] [phone] Valentina Riley, RN SN - LONG VISIT (>90 MINUTES) 05/04/19 8:30 AM ROD PULLER Office Visit [facility] [address] [facility] [address] [place] [address] Lauro Kendall MD Follow Up (POST HOSPITAL FOLLOW UP. LABS DONE PRIOR AT HOME HEALTH CARE./PT states feeling OK/no cardiac symptoms today /Establish care ) 05/04/19 Travel 04/30/19 2:30 PM ROD PULLER Home Care Visit [facility] [address] [place] [phone] Nicolas Sanz, PT PT - HOME VISIT 04/30/[address] [address] Shana Lozano, DO Weight (Weight gain) 04/30/19 Travel 04/29/19 12:30 PM ROD PULLER Home Care Visit [facility] [address] [place] [phone] Valentina Riley, AMELIA SN - LONG VISIT (>90 MINUTES) 04/29/19 25 Home Care Visit [facility] [address] [place] [phone] Nicolas Sanz, PT CARE COORDINATION 04/28/19 3:00 PM ROD PULLER Home Care Visit [facility] [address] [place] [phone] Nicolas Sanz, PT PT - INITIAL ASSESSMENT 04/28/19 9:00 AM ROD PULLER Home Care Visit [facility] [address] [place] [phone] Anabella Rico, DIRECTOR CONSUMER DIRECTOR CONSUMER - HOME VISIT 02/26/20 25 Telephone [facility] [address] [place] [address] Shana Lozano, DO Questions (Verbal orders) 04/28/19 Travel 04/27/19 1:00 PM ROD PULLER Home Care Visit [facility] [address] [facility] [place] [phone] Tiffany Fang OT OT - INITIAL ASSESSMENT 04/27/19 11:30 AM ROD PULLER Anticoagulation (warfarin) [facility] [address] [place] [address] Anticoagulation 04/27/19 9:40 AM ROD PULLER Office Visit [facility] [address] [place] [address] Shana Lozano, DO Hospital F/U (04/06/2024-04/21/2024 Afib with RVR) 04/27/19 Travel 04/26/19 Telephone [place] [address] [address] [facility] [place] [address] Ignacio Willett MD Care Coordination (EP called and spoke with patient who reports that he moved in with his daughter which is 100 miles from [facility]. EP confirmed with patient that he would be discharged from CR at [facility]. Pt confirmed he would check out places near for CR as needed. ) 04/26/19 Orders Only [facility] [address] [place] [address] Shana Lozano DO <No scans attached> 04/26/19 Orders Only [facility] [address] [place] [address] Shana Lozano DO <No scans attached> 04/25/19 1:00 PM ROD PULLER Home Care Visit [facility] [address] [facility] [place] [phone] Staci Lara RN SN - HOME VISIT 04/23/19 1:45 PM ROD PULLER Home Care Visit [facility] [address] [facility] [place] [phone] Joceline Edouard IMPROVEMENT LEAD - HOME VISIT 04/23/19 25 1:00 PM ROD PULLER Home Care Visit [facility] [address] [place] [phone] Valentina Riley, AMELIA SN - LONG VISIT (>90 MINUTES) 04/23/19 25 9:00 AM ROD PULLER Anticoagulation (warfarin) [facility] [address] [place] [address] Anticoagulation 04/23/19 25 Orders Only [facility] [address] [place] [address] Shana Lozano, Lab 04/23/19 25 Orders Only [facility] [address] [place] [phone] Shana Lozano DO Lab (Home care) 04/23/19 25 Orders Only [facility] [address] [facility] [address] [place] [phone] Abi Valdovinos, FIELD ATTENDANT <No scans attached> 04/23/19 25 Travel 04/22/19 25 1:00 PM ROD PULLER Home Care Visit [facility] [address] [place] [phone] Valentina Riley RN SN IV - START OF CARE 04/22/19 25 Plan of Care Documentation [facility] [address] [place] [phone] 04/22/19 25 Telephone [facility] [address] [place] [phone] Valentina Riley RN Home Care 04/22/19 25 Telephone [facility] [address] [place] [address] Shana Lozano, Outside Order (WALKER / PORTABLE URINAL ) 04/22/19 25 Home Care Visit [facility] [address] [place] [phone] Valentina Riley, AMELIA CARE COORDINATION 04/22/19 25 Telephone [facility] [address] [place] [address] Ignacio Willett MD Care Coordination (EP attempted phone contact with patient to touch base regarding cardiac rehab plan. No answer and VM is full. EP to follow-up as needed. ) 04/21/19 25 Telephone [facility] [address] [place] [address] Shana Lozano, DO Anticoagulation 04/19/19 25 Telephone [facility] [address] [place] [address] Shana Lozano, DO Questions (Home care orders ) 04/17/19 25 Refill [facility] [address] [place] [address] Ignacio Willett MD Refill Request (Isosorbide Mononitrate) 04/12/19 25 10:26 AM ROD PULLER Anesthesia Event [facility] [address] [place] [address] Gerardo Garza MD Schlatter, Charles Patrick, FAMILY SERVICES MANAGER 04/08/19 25 12:21 PM ROD PULLER Anesthesia Event [facility] [address] [place] [address] Leonardo Campbell MD Reiter, Kyle, FAMILY SERVICES MANAGER 04/08/19 25 11:26 AM ROD PULLER - 04/08/19 25 12:12 PM ROD PULLER Surgery [facility] [address] [place] [address] Chepe Francis MD ESOPHAGOGASTRODUODENOSCOPY WITH GASTRIC BIOPSY 04/06/19 25 11:21 PM ROD PULLER - 04/21/19 25 5:55 PM ROD PULLER Hospital Encounter [facility] [address] [place] [address] Associates, w General Medicine [facility], [facility] Parmjit Berrios MD Mrkvicka, MD [...] Discharge Disposition: Home Health 04/06/19 2:41 PM ROD PULLER - 04/06/19 10:17 PM ROD PULLER Emergency [address] [address] Charly Monroe MD Binder, Jacob A, MD Atrial fibrillation, unspecified type (HC) (Primary Dx); Hypotension, unspecified hypotension type; Lightheadedness; DAVID (acute kidney injury) Discharge Disposition: Short Term/PPS Hosp 04/06/19 1:56 PM ROD PULLER - 04/06/19 2:40 PM ROD PULLER Hospital Encounter [address] [address] Ignacio Willett MD 04/06/19 Telephone [facility] [address] [place] [address] Lukasz Bright MD 04/06/19 25 Travel 04/05/19 Telephone [facility] [address] [place] [address] Ignacio Willett MD Atrial Fibrillation 03/30/19 25 1:47 PM ROD PULLER - 03/30/19 25 11:59 PM ROD PULLER Hospital Encounter [address] [address] Ignacio Willett MD 03/30/19 25 Travel 03/24/19 25 1:00 PM ROD PULLER - 03/24/19 25 11:59 PM ROD PULLER Hospital Encounter [address] [address] Ignacio Willett MD 03/24/19 25 Travel 03/22/19 25 1:00 PM ROD PULLER - 03/22/19 25 11:59 PM ROD PULLER Hospital Encounter [address] [address] Ignacio Willett MD 03/22/19 25 Travel 03/15/19 25 12:50 PM ROD PULLER - 03/15/19 25 11:59 PM ROD PULLER Hospital Encounter [address] [address] Ignacio Willett MD 03/15/19 25 Travel 03/10/19 25 12:50 PM ROD PULLER - 03/10/19 25 11:59 PM ROD PULLER Hospital Encounter [address] [address] Ignacio Willett MD 03/10/19 25 Travel 03/08/19 25 1:00 PM ROD PULLER - 03/08/19 25 11:59 PM ROD PULLER Hospital Encounter [address] [address] Ignacio Willett MD 03/08/19 25 Travel 03/01/20 24 1:29 PM ROD PULLER - 03/01/20 24 11:59 PM ROD PULLER Hospital Encounter [address] [address] Ignacio Willett MD Ischemic cardiomyopathy; CAD, multiple vessel; Dyslipidemia; Congestive heart failure, unspecified HF chronicity, unspecified heart failure type (HC) 03/01/20 24 Orders Only [address] [address] Ignacio Willett MD <No scans attached> from [...] on file Legal Sex Male 5:26 PM ROD PULLER Gender Identity Not on file Sexual Orientation [...] 175.3 cm (5' 9) 05/03/2024 8:40 AM ROD PULLER Body Mass Index 24.99 05/03/2024 8:40 AM ROD PULLER Plan of Treatment Upcoming Encounters Date Type Department Care Team (Late st Contact Info) Description 05/17/2024 3:15 PM CDT Home Care Visit [facility] [address] [place] [address] Joceline Edouard 05/18/2024 10:00 AM CDT Home Care Visit [facility] [address] [place] [address] Edis Camargo, DENTAL HYGIENE INSTRUCTOR [address] [place] [address] 05/18/2024 11:00 AM CDT Home Care Visit [facility] [address] [place] [phone] Valentina Riley, AMELIA 05/18/2024 4:00 PM CDT Home Care Visit [facility] [address] [place] [phone] FunmiMonisha porter Emy, PARIKH [address] [place] [address] 05/19/2024 10:30 AM CDT Home Care Visit [facility] [address] [place] [phone] Nicolas Sanz, PT [address] [place] [address] 05/20/2024 2:45 PM CDT Home Care Visit [facility] [address] [place] [phone] Joceline Edouard 05/21/2024 11:30 AM CDT Home Care Visit [facility] [address] [place] [phone] Valentina Riley RN 05/21/2024 1:15 PM CDT Home Care Visit [facility] [address] [place] [phone] Nicolas Sanz, PT [address] [place] [address] 05/24/2024 4:00 AM CDT Home Care Visit [facility] [address] [place] [phone] Valentina Riley, AMELIA 05/24/2024 2:30 PM CDT Home Care Visit [facility] [address] [place] [phone] Joceline Edouard 05/25/2024 5:00 AM CDT Home Care Visit [facility] [address] [place] [phone] AnnalisaAnselmo hernandezcurt, OT [address] [place] [address] 05/26/2024 3:00 AM CDT Home Care Visit [facility] [address] [place] [phone] Nicolas Sanz, PT [address] [place] [address] 05/27/2024 4:00 AM CDT Home Care Visit [address] [phone] Joceline Edouard 05/28/2024 4:00 AM CDT Home Care Visit [address] [phone] Valentina Riley, AMELIA 05/31/2024 4:00 AM CDT Home Care Visit [address] [phone] Valentina Riley, AMELIA 06/01/2024 4:00 AM CDT Home Care Visit [address] [phone] Jax Edouardin L 06/03/2024 4:00 AM CDT Home Care Visit [address] [phone] Jax Edouardin L 06/03/2024 8:35 AM CDT Office [place] [address] [place] [address] 06/04/2024 4:00 AM CDT Home Care Visit [address] [phone] Valentina Riley, RN 06/07/2024 4:00 AM CDT Home Care Visit [facility] [address] [place] [address] Valentina Riley, AMELIA 06/08/2024 4:00 AM CDT Home Care Visit [facility] [address] [place] [address] Jax Edouardin L 06/08/2024 8:30 AM CDT Office Visit [facility] [address] [facility] [address] [place] [address] Lauro Kendall MD [address] [facility] [address] [place] [address] 06/10/2024 4:00 AM CDT Home Care Visit [facility] [address] [place] [phone] Jax Edouardin L 06/11/2024 4:00 AM CDT Home Care Visit [facility] [address] [place] [phone] Valentina Riley, AMELIA 06/14/2024 1:00 PM CDT Home Care Visit [facility] [address] [place] [phone] Valentina Riley, RN 06/15/2024 4:00 AM CDT Home Care Visit [facility] [address] [place] [phone] Jax Edouardin L 06/16/2024 1:00 PM CDT Home Care Visit [facility] [address] [place] [phone] Valentina Riley, RN 06/17/2024 4:00 AM CDT Home Care Visit [facility] [address] [place] [phone] Silke, Krin L 06/18/2024 1:00 PM CDT Appointment [facility] [address] [place] [address] [place] [phone] Valentina Riley, RN Health Maintenance Due Date [...] Diagnosis Comments PROTIME-INR Routine 04/27/2024 10:26 AM ROD PULLER Ischemic cardiomyopathy PRO-BNP Routine 04/27/2024 10:26 AM ROD PULLER Acute systolic heart failure (HC) BASIC METABOLIC PANEL Routine 04/27/2024 10:26 AM ROD PULLER Acute systolic heart failure (HC) PROTIME-INR Routine 04/23/2024 1:40 PM ROD PULLER Atrial fibrillation with rapid ventricular response (HC) BASIC METABOLIC PANEL Early AM 04/21/2024 6:15 AM ROD PULLER HEPATIC FUNCTION PANEL Early AM 6:15 AM ROD PULLER PROTIME-INR Early AM 04/21/2024 6:15 AM ROD PULLER SCAN-CARDIAC STRIP 04/20/2024 11:03 PM ROD PULLER SCAN-CARDIAC STRIP 04/20/2024 7:32 PM ROD PULLER CBC W PLT NO DIFF Early AM 04/20/2024 7:04 AM ROD PULLER MAGNESIUM Early AM 04/20/2024 7:04 AM ROD PULLER BASIC METABOLIC PANEL Early AM 04/20/2024 7:04 AM ROD PULLER HEPATIC FUNCTION PANEL Early AM 7:04 AM ROD PULLER PROTIME-INR Early AM 04/20/2024 7:04 AM ROD PULLER O2 SATURATION,MEASURED Early AM 6:22 AM ROD PULLER SCAN-CARDIAC STRIP 04/19/2024 7:23 PM ROD PULLER SCAN-CARDIAC STRIP 04/19/2024 1:45 PM ROD PULLER MAGNESIUM Early AM 04/19/2024 6:57 AM ROD PULLER BASIC METABOLIC PANEL Early AM 04/19/2024 6:57 AM ROD PULLER HEMOGLOBIN Early AM 04/19/2024 6:57 AM ROD PULLER HEPATIC FUNCTION PANEL Early AM 6:57 AM ROD PULLER PROTIME-INR Early AM 04/19/2024 6:57 AM ROD PULLER O2 SATURATION,MEASURED Early AM 6:11 AM ROD PULLER SCAN-CARDIAC STRIP 04/18/2024 10:04 PM ROD PULLER SCAN-CARDIAC STRIP 04/18/2024 5:43 PM ROD PULLER MAGNESIUM Timed 04/18/2024 4:33 PM ROD PULLER POTASSIUM Timed 04/18/2024 12:45 PM ROD PULLER O2 SATURATION,MEASURED Early AM 8:11 AM ROD PULLER SCAN-CARDIAC STRIP 04/18/2024 7:46 AM ROD PULLER MAGNESIUM Early AM 04/18/2024 7:07 AM ROD PULLER BASIC METABOLIC PANEL Early AM 04/18/2024 7:07 AM ROD PULLER HEPATIC FUNCTION PANEL Early AM 7:07 AM ROD PULLER PROTIME-INR Early AM 04/18/2024 7:07 AM ROD PULLER SCAN-CARDIAC STRIP 04/17/2024 11:49 PM ROD PULLER SCAN-CARDIAC STRIP 04/17/2024 9:12 PM ROD PULLER SCAN-CARDIAC STRIP 04/17/2024 7:41 AM ROD PULLER MAGNESIUM RUSH 04/17/2024 7:26 AM ROD PULLER BASIC METABOLIC PANEL Early AM 04/17/2024 7:26 AM ROD PULLER HEPATIC FUNCTION PANEL Early AM 7:26 AM ROD PULLER PROTIME-INR Early AM 04/17/2024 7:26 AM ROD PULLER O2 SATURATION,MEASURED Early AM 6:35 AM ROD PULLER SCAN-CARDIAC STRIP 04/16/2024 11:25 PM ROD PULLER POTASSIUM Timed 04/16/2024 5:20 PM ROD PULLER O2 SATURATION,MEASURED Timed 3:06 PM ROD PULLER ALK PHOSPHATASE Today 04/16/2024 10:19 AM ROD PULLER BILIRUBIN DIRECT Today 04/16/2024 10:19 AM ROD PULLER ALT (SGPT) Today 04/16/2024 10:19 AM ROD PULLER AST (SGOT) Today 04/16/2024 10:19 AM ROD PULLER POTASSIUM Early AM 04/16/2024 10:19 AM ROD PULLER SCAN-CARDIAC STRIP 04/16/2024 8:23 AM ROD PULLER HEMOGLOBIN Early AM 04/16/2024 8:09 AM ROD PULLER HEPATIC FUNCTION PANEL Early AM 8:09 AM ROD PULLER CREATININE Early AM 04/16/2024 8:09 AM ROD PULLER SODIUM Early AM 04/16/2024 8:09 AM ROD PULLER MAGNESIUM Early AM 04/16/2024 8:09 AM ROD PULLER O2 SATURATION,MEASURED Early AM 6:31 AM ROD PULLER SCAN-CARDIAC STRIP 04/16/2024 1:03 AM ROD PULLER SCAN-CARDIAC STRIP 04/15/2024 8:37 PM ROD PULLER O2 SATURATION,MEASURED Today 6:58 PM ROD PULLER POTASSIUM Timed 04/15/2024 5:26 PM ROD PULLER EKG 12 LEAD RUSH 04/15/2024 12:31 PM ROD PULLER PROTIME-INR Early AM 04/15/2024 11:55 AM ROD PULLER POTASSIUM Timed 04/15/2024 11:55 AM ROD PULLER O2 SATURATION,MEASURED RUSH 8:07 AM ROD PULLER GLUCOSE METER Timed 04/15/2024 7:49 AM ROD PULLER SCAN-CARDIAC STRIP 04/15/2024 7:26 AM ROD PULLER HEMOGLOBIN Early AM 04/15/2024 6:38 AM ROD PULLER BASIC METABOLIC PANEL Early AM 04/15/2024 6:38 AM ROD PULLER MAGNESIUM Early AM 04/15/2024 6:38 AM ROD PULLER HEPATIC FUNCTION PANEL Early AM 6:38 AM ROD PULLER SCAN-CARDIAC STRIP 04/15/2024 3:06 AM ROD PULLER SCAN-CARDIAC STRIP 04/14/2024 9:43 PM ROD PULLER GLUCOSE METER Timed 04/14/2024 9:05 PM ROD PULLER GLUCOSE METER Timed 04/14/2024 4:15 PM ROD PULLER SCAN-CARDIAC STRIP 04/14/2024 3:27 PM ROD PULLER ICD ANALYSIS DUAL WITHOUT REPROGRAM Routine 04/14/2024 3:13 PM ROD PULLER EKG 12 LEAD RUSH 04/14/2024 1:25 PM ROD PULLER GLUCOSE METER Timed 04/14/2024 12:04 PM ROD PULLER POTASSIUM Timed 04/14/2024 11:49 AM ROD PULLER GLUCOSE METER Timed 04/14/2024 7:53 AM ROD PULLER SCAN-CARDIAC STRIP 04/14/2024 7:21 AM ROD PULLER URINALYSIS MICROSCOPIC Timed 6:29 AM ROD PULLER BASIC METABOLIC PANEL Early AM 04/14/2024 6:29 AM ROD PULLER MAGNESIUM Early AM 04/14/2024 6:29 AM ROD PULLER HEPATIC FUNCTION PANEL Early AM 6:29 AM ROD PULLER O2 SATURATION,MEASURED Timed 6:29 AM ROD PULLER UA W/ SEDIMENT EXAM REFLEXED PER CRITERIA Today 04/14/2024 6:29 AM ROD PULLER GLUCOSE METER Timed 04/13/2024 9:23 PM ROD PULLER SCAN-CARDIAC STRIP 04/13/2024 8:03 PM ROD PULLER PICC LINE Routine 04/13/2024 7:28 PM ROD PULLER INSERT PICC LINE Routine 04/13/2024 7:20 PM ROD PULLER GLUCOSE METER Timed 04/13/2024 5:07 PM ROD PULLER SCAN-CARDIAC STRIP 04/13/2024 3:12 PM ROD PULLER ICD ANALYSIS DUAL WITHOUT REPROGRAM Routine 04/13/2024 1:57 PM ROD PULLER EKG 12 LEAD Today 04/13/2024 8:25 AM ROD PULLER GLUCOSE METER Timed 04/13/2024 7:41 AM ROD PULLER SCAN-CARDIAC STRIP 04/13/2024 7:35 AM ROD PULLER HEPATIC FUNCTION PANEL Early AM 6:43 AM ROD PULLER HEMOGLOBIN Early AM 04/13/2024 6:43 AM ROD PULLER BASIC METABOLIC PANEL Early AM 04/13/2024 6:43 AM ROD PULLER GLUCOSE METER Timed 04/12/2024 9:16 PM ROD PULLER GLUCOSE METER Timed 04/12/2024 6:39 PM ROD PULLER COMPREHENSIVE BLOOD GAS MIXE D VENOUS Timed 04/12/2024 4:48 PM ROD PULLER CVL OTHER PROCEDURE Routine 04/12/2024 4:09 PM ROD PULLER Cardiovascular symptoms SCAN-CARDIAC STRIP 04/12/2024 3:27 PM ROD PULLER US RENAL AND BLADDER COMPLETE Routine 2:51 PM ROD PULLER GLUCOSE METER Timed 04/12/2024 11:55 AM ROD PULLER ECHO NOEL WO CONTRAST W COLOR W LTD DOPPLER Routine 04/12/2024 10:52 AM ROD PULLER EKG 12 LEAD Post Op 04/12/2024 10:49 AM ROD PULLER EP OTHER PROCEDURE Routine 04/12/2024 10:48 AM ROD PULLER GLUCOSE METER Timed 04/12/2024 7:30 AM ROD PULLER HEPATIC FUNCTION PANEL RUSH 6:31 AM ROD PULLER BASIC METABOLIC PANEL Early AM 04/12/2024 6:31 AM ROD PULLER MAGNESIUM Early AM 04/12/2024 6:31 AM ROD PULLER SCAN-CARDIAC STRIP 04/12/2024 3:46 AM ROD PULLER SCAN-OPERATIVE/PROCEDURE REPORT 04/12/2024 12:00 AM ROD PULLER GLUCOSE METER Timed 04/11/2024 9:47 PM ROD PULLER SCAN-CARDIAC STRIP 04/11/2024 8:21 PM ROD PULLER GLUCOSE METER Timed 04/11/2024 5:24 PM ROD PULLER SCAN-CARDIAC STRIP 04/11/2024 4:18 PM ROD PULLER GLUCOSE METER Timed 04/11/2024 11:31 AM ROD PULLER HEMOGLOBIN Today 04/11/2024 10:12 AM ROD PULLER MAGNESIUM RUSH 04/11/2024 10:12 AM ROD PULLER BASIC METABOLIC PANEL Early AM 04/11/2024 10:12 AM ROD PULLER SCAN-CARDIAC STRIP 04/11/2024 7:48 AM ROD PULLER GLUCOSE METER Timed 04/11/2024 7:44 AM ROD PULLER GLUCOSE METER Timed 04/10/2024 9:22 PM ROD PULLER POTASSIUM Timed 04/10/2024 6:20 PM ROD PULLER GLUCOSE METER Timed 04/10/2024 5:09 PM ROD PULLER SCAN-CARDIAC STRIP 04/10/2024 4:04 PM ROD PULLER POTASSIUM Timed 04/10/2024 1:24 PM ROD PULLER GLUCOSE METER Timed 04/10/2024 12:37 PM ROD PULLER SCAN-CARDIAC STRIP 04/10/2024 10:29 AM ROD PULLER GLUCOSE METER Timed 04/10/2024 8:26 AM ROD PULLER MAGNESIUM RUSH 04/10/2024 8:09 AM ROD PULLER BASIC METABOLIC PANEL Early AM 04/10/2024 8:09 AM ROD PULLER SCAN-CARDIAC STRIP 04/10/2024 5:01 AM ROD PULLER GLUCOSE METER Timed 04/09/2024 9:07 PM ROD PULLER POTASSIUM Timed 04/09/2024 7:56 PM ROD PULLER SCAN-CARDIAC STRIP 04/09/2024 7:40 PM ROD PULLER GLUCOSE METER Timed 04/09/2024 5:26 PM ROD PULLER SCAN-CARDIAC STRIP 04/09/2024 3:40 PM ROD PULLER GLUCOSE METER Timed 04/09/2024 8:14 AM ROD PULLER BASIC METABOLIC PANEL Early AM 04/09/2024 8:10 AM ROD PULLER GLUCOSE METER Timed 04/08/2024 9:15 PM ROD PULLER GLUCOSE METER Timed 04/08/2024 4:52 PM ROD PULLER POTASSIUM Timed 04/08/2024 2:45 PM ROD PULLER GLUCOSE METER Timed 04/08/2024 1:00 PM ROD PULLER PATH TISSUE EXAM Today 04/08/2024 12:39 PM ROD PULLER ESOPHAGOGASTRODUODENOSCOPY W ITH BIOPSY 04/08/2024 12:13 PM ROD PULLER melena GLUCOSE METER Timed 04/08/2024 11:09 AM ROD PULLER ENDOSCOPY 04/08/2024 9:49 AM ROD PULLER GLUCOSE METER Timed 04/08/2024 8:00 AM ROD PULLER EXTRA TUBE BLUE Today 04/08/2024 6:45 AM ROD PULLER EXTRA TUBE LAVENDER Today 04/08/2024 6:45 AM ROD PULLER PRO-BNP Early AM 04/08/2024 6:45 AM R[facility] PULLER BASIC METABOLIC PANEL Early AM 04/08/2024 6:45 AM ROD PULLER SCAN-CARDIAC STRIP 04/07/2024 11:52 PM ROD PULLER GLUCOSE METER Timed 04/07/2024 10:19 PM ROD PULLER GLUCOSE METER Timed 04/07/2024 7:15 PM ROD PULLER HEMOGLOBIN Timed 04/07/2024 6:10 PM ROD PULLER DIGOXIN Timed 04/07/2024 1:50 PM ROD PULLER HEMOGLOBIN Timed 04/07/2024 1:50 PM ROD PULLER GLUCOSE METER Timed 04/07/2024 12:33 PM ROD PULLER EKG 12 LEAD Routine 04/07/2024 10:01 AM ROD PULLER URINALYSIS MICROSCOPIC Timed 9:48 AM ROD PULLER UA W/ SEDIMENT EXAM REFLEXED PER CRITERIA Today 04/07/2024 9:48 AM ROD PULLER COVID/FLU/RSV PANEL Today 04/07/2024 9:48 AM ROD PULLER ICD ANALYSIS DUAL WITHOUT REPROGRAM Routine 04/07/2024 9:05 AM ROD PULLER ECHO TTE LIMITED W CONTRAST W COLOR W DOPPLER Routine 04/07/2024 8:53 AM ROD PULLER GLUCOSE METER Timed 04/07/2024 7:43 AM ROD PULLER EXTRA TUBE BLUE Today 04/07/2024 6:23 AM ROD PULLER LACTATE VENOUS Timed 04/07/2024 6:20 AM ROD PULLER HEMOGLOBIN Timed 04/07/2024 6:20 AM ROD P[facility]ER MAGNESIUM Early AM 04/07/2024 6:20 AM ROD PULLER SODIUM Early AM 04/07/2024 6:20 AM ROD PULLER POTASSIUM Early AM 04/07/2024 6:20 AM ROD PULLER CREATININE Early AM 04/07/2024 6:20 AM ROD PULLER SCAN-CARDIAC STRIP 04/07/2024 5:29 AM ROD PULLER SCAN-CARDIAC STRIP 04/07/2024 3:14 AM ROD P[facility]ER LACTATE VENOUS Timed 04/07/2024 2:58 AM ROD PULLER GLUCOSE METER Timed 04/07/2024 1:49 AM ROD PULLER TYPE & SCREEN Today 04/07/2024 12:39 AM ROD PULLER FERRITIN RUSH 04/07/2024 12:39 AM ROD PULLER IRON PLUS IRON BINDING CAP RUSH 04/07 12:39 AM ROD PULLER RETICULOCYTES RUSH 04/07/2024 12:39 AM ROD PULLER LACTATE VENOUS Today 04/07/2024 12:39 AM ROD PULLER COMP METABOLIC PANEL STAT 04/07/2024 12:39 AM ROD PULLER CBC W PLT NO DIFF STAT 04/07/2024 12:39 AM ROD PULLER XR CHEST 1 VIEW PORTABLE STAT 025 8:19 PM ROD PULLER TROPONIN I STAT 04/06/2024 7:53 PM ROD PULLER BASIC METABOLIC PANEL STAT 04/06/2024 7:53 PM ROD PULLER EXTRA TUBE LAVENDER Today 04/06/2024 3:55 PM ROD PULLER HEPATIC FUNCTION PANEL STAT 3:55 PM ROD PULLER BEDSIDE US STUDY ARCHIVE Routine 025 3:07 PM ROD PULLER HEPARIN LEVEL STAT 04/06/2024 2:45 PM ROD PULLER APTT STAT 04/06/2024 2:45 PM ROD PULLER PROTIME-INR STAT 04/06/2024 2:45 PM ROD PULLER EXTRA TUBE GOLD/SST Today 04/06/2024 2:45 PM ROD PULLER EXTRA TUBE BLUE Today 04/06/2024 2:45 PM ROD PULLER SLIDE REVIEW STAT 04/06/2024 2:45 PM ROD PULLER BRAIN NATRIURETIC PEPTIDE STAT 2024 2:45 PM ROD PULLER CBC WITH AUTO DIFFERENTIAL STAT 04/06 2:45 PM ROD PULLER TROPONIN I STAT 04/06/2024 2:45 PM ROD PULLER TSH WITH REFLEX STAT 04/06/2024 2:45 PM ROD PULLER MAGNESIUM STAT 04/06/2024 2:45 PM ROD PULLER BASIC METABOLIC PANEL STAT 04/06/2024 2:45 PM ROD PULLER CBC WITH AUTO DIFFERENTIAL STAT 04/06 2:45 PM ROD PULLER EKG 12 LEAD STAT 04/06/2024 2:35 PM ROD PULLER SCAN-CARDIAC STRIP 04/06/2024 12:00 AM ROD PULLER SCAN-CARDIAC STRIP 04/06/2024 12:00 AM ROD PULLER SCAN-CARDIAC STRIP 03/22/2024 12:00 AM ROD PULLER SCAN-CARDIAC STRIP 03/15/2024 12:00 AM ROD PULLER SCAN-CARDIAC STRIP 03/08/2024 12:00 AM ROD PULLER SCAN-CARDIAC STRIP 03/01/2024 12:00 AM ROD PULLER SCAN-CARDIAC STRIP 03/01/2024 12:00 AM ROD PULLER SCAN-CARDIAC STRIP 03/01/2024 12:00 AM ROD P[facility]ER SCAN-CARDIAC STRIP 03/01/2024 12:[address] ABDOMEN PELVIS WO STAT 01/16/2024 4:53 AM ROD PULLER LIPID PANEL W REFLEX MEASURE D LDL [...] Results * (ABNORMAL) PROTIME-INR (04/27/2024 10:26 AM ROD PULLER) Only the most recent of9 resultswithin the time period is included. INR 2.4(H) 0.8 - 1.1 04/27/2024 11:18 AM ROD PULLER [facility] Blood BLOOD SPECIMEN / Unknown Venipuncture / Unknown 04/27/2024 10:26 AM ROD PULLER 04/27/2024 10:38 AM ROD PULLER Shana Lozano DO HEMATOLOGY Final Result Performing Organization Address [facility]/State/[facility] Co de Phone Number [place] [address] [place] [address], * (ABNORMAL) PRO-BNP (04/27/2024 10:26 AM ROD PULLER) Only the most recent of2 resultswithin the time period is included. PRO-BNP 11,954(H) <125 pg/mL 04/27/2024 4:02 PM [facility] Blood BLOOD SPECIMEN / Unknown Venipuncture / Unknown 04/27/2024 10:26 AM ROD PULLER 04/27/2024 10:[address] [facility] LABORATORY - 04/27/2024 4:02 PM ROD PULLER The following cut-points have been suggested for [...] acute congestive heart failure. us Abi Valdovinos [facility] SEND OUTS Final Resu lt [facility] [address] [place] [address], * (ABNORMAL) BASIC METABOLIC PANEL (04/27/2024 10:26 AM ROD PULLER) Only the most recent of16 resultswithin the time period is included. SODIUM 135(L) 136 - 145 mmol/L 04/27/2024 11:[address] [facility] POTASSIUM 4.3 3.5 - 5.1 mmol/L 04/27/2024 11:[address] [facility] CHLORIDE 105 98 - 107 mmol/L 04/27/2024 11:[address] [facility] CO2,TOTAL 17(L) 22 - 31 mmol/L 04/27/2024 11:[address] [facility] ANION GAP 13 5 - 18 04/27/2024 11:[address] [facility] GLUCOSE 110(H) 70 - 99 mg/dL 04/27/2024 11:[address] [facility] CALCIUM 9.0 8.4 - 10.2 mg/dL 04/27/2024 11:[address] [facility] BUN 25 8 - 25 mg/dL 04/27/2024 11:[address] [facility] CREATININE 2.10(H) 0.72 - 1.25 mg/dL 04/27/2024 11:[address] [facility] BUN/CREAT RATIO 12 10 - 20 11:[address] [facility] eGFR 33(L) >90 mL/min/1.7 3m2 04/27/2024 11:[address] [facility] Comment:As of 2021, eG FR is calculated by the CKD-EPI creatinine equation without race adjustment. eGFR can be influenced by muscle mass, exercise, and diet. The reported eGFR is an estimation only and is only applicable if the renal function is stable. Blood BLOOD SPECIMEN / Unknown Venipuncture / Unknown 04/27/2024 10:26 AM ROD PULLER 04/27/2024 10:38 AM ROD PULLER us Abi Valdovinos [facility] CHEMISTRY Final Resu lt [facility] [address] [place] [address], [place] [phone] * (ABNORMAL) Hepatic function panel AM (04/21/2024 6:15 AM ROD PULLER) Only the most recent of11 resultswithin the time period is included. ALBUMIN 3.5(L) 4.0 - 4.9 g/dL 04/21/2024 6:57 AM [facility] TRAL LABORATORY PROTEIN,TOTAL 5.9(L) 6.0 - 8.0 g/dL 04/21/2024 6:57 AM [facility] BILIRUBIN,TOTAL 1.0 0.0 - 1.2 mg/dL 04/21/2024 6:57 AM [facility] BILIRUBIN,DIRECT 0.5(H) 0.0 - 0.2 mg/dL 04/21/2024 6:57 AM ROD PULLER [facility] LAB[facility] BILIRUBIN,INDIRE CT 0.5 0.2 - 0.8 mg/dL 04/21/2024 6:57 AM [facility] LAB[facility] ALK PHOSPHATASE 158(H) 40 - 129 IU/L 04/21/2024 6:57 AM ROD PULLER [facility] ALT (SGPT) 48 10 - 50 IU/L 04/21/2024 6:57 AM [facility] AST (SGOT) 18 10 - 50 IU/L 04/21/2024 6:57 AM [facility] Blood BLOOD SPECIMEN / Unknown Venipuncture / Unknown 04/21/2024 6:15 AM ROD PULLER 04/21/2024 6:29 AM ROD PULLER us Lauro Kendall MD CHEMISTRY Final Res ult [facility] [address] [place] [address], [place] * SCAN-CARDIAC STRIP (04/20/2024 11:03 PM ROD PULLER) us Scanner OTHER Final Result * SCAN-CARDIAC STRIP (04/20/2024 7:32 PM ROD PULLER) us Scanner OTHER Final Result * (ABNORMAL) CBC (04/20/2024 7:04 AM ROD PULLER) Only the most recent of2 resultswithin the time period is included. WHITE BLOOD COUNT 8.1 4.5 - 11.0 thou/cu mm 04/20/2024 7:31 AM ROD PULLER [facility] RED BLOOD COUNT 3.32(L) 4.30 - 5.90 mil/cu mm 04/20/2024 7:31 AM ROD PULLER [facility] HEMOGLOBIN 9.6(L) 13.5 - 17.5 g/dL 04/20/2024 7:31 AM ROD PULLER [facility] HEMATOCRIT 30.3(L) 37.0 - 53.0 % 04/20/2024 7:31 AM ROD PULLER [facility] MCV 91 80 - 100 fL 04/20/2024 7:31 AM ROD PULLER [facility] MCH 28.9 26.0 - 34.0 pg 04/20/2024 7:31 AM ROD PULLER [facility] MCHC 31.7(L) 32.0 - 36.0 g/dL 04/20/2024 7:31 AM [facility] RDW 18.9(H) 11.5 - 15.5 % 04/20/2024 7:31 AM ROD PULLER [facility] PLATELET COUNT 229 140 - 440 thou/cu mm 04/20/2024 7:31 AM ROD PULLER [facility] MPV 10.9 6.5 - 11.0 fL 04/20/2024 7:31 AM ROD PULLER [facility] NRBC 0.2 % 04/20/2024 7:31 AM [facility] ABS NRBC 0.0 thou /cu mm 04/20/2024 7:31 AM [facility] Blood BLOOD SPECIMEN / Unknown Venipuncture / Unknown 04/20/2024 7:04 AM ROD PULLER 04/20/2024 7:20 AM ROD PULLER Madonna Hedrick PST SPECIALIST HEMATOLOGY Final Res ult Performing Organization Address City/[facility]/ZIP Co de Phone Number [facility] [address] [place] [address], [place] * (ABNORMAL) Magnesium AM (04/20/2024 7:04 AM ROD PULLER) Only the most recent of13 resultswithin the time period is included. MAGNESIUM 2.5(H) 1.6 - 2.4 mg/dL 04/20/2024 7:50 AM ROD PULLER [facility] Blood BLOOD SPECIMEN / Unknown Venipuncture / Unknown 04/20/2024 7:04 AM ROD PULLER 04/20/2024 7:20 AM ROD PULLER Madonna Hedrick PST SPECIALIST CHEMISTRY Final Res ult Performing Organization Address City/[facility]/ZIP Co de Phone Number [facility] [address] [place] [address], [place] * (ABNORMAL) O2 SATURATION,MEASURED (04/20/2024 6:22 AM ROD PULLER) Only the most recent of9 resultswithin the time period is included. O2 SATURATION,MANISH SURED 55 % 04/20/2024 6:38 AM [facility] HEMOGLOBIN,BLO OD GAS 10.0(L) 13.5 - 17.5 g/dL 04/20/2024 6:38 AM ROD PULLER [facility] SOURCE, O2M Venous 04/20/2024 6:38 AM ROD PULLER [facility] Blood BLOOD SPECIMEN / Unknown Non-Lab Venipuncture / Unknown 04/20/2024 6:22 AM ROD PULLER 04/20/2024 6:34 AM ROD PULLER Narrative [facility] - 04/20/2024 6:38 AM ROD PULLER Reference Range for: Arterial Source (94-98) Non-Arterial Source (70-75) us Marylou Currie NP CHEMISTRY Final R esult Performing Organization Address City/[facility]/ZIP Co de Phone Number [facility] [address] [address], [place] * SCAN-CARDIAC STRIP (04/19/2024 7:23 PM ROD PULLER) us Scanner OTHER Final Result * SCAN-CARDIAC STRIP (04/19/2024 1:45 PM ROD PULLER) us Scanner OTHER Final Result * (ABNORMAL) Hemoglobin AM (04/19/2024 6:57 AM ROD PULLER) Only the most recent of8 resultswithin the time period is included. HEMOGLOBIN 10.3(L) 13.5 - 17.5 g/dL 04/19/2024 8:14 AM ROD PULLER [facility] MCV 93 80 - 100 fL 04/19/2024 8:14 AM ROD PULLER [facility] Blood BLOOD SPECIMEN / Unknown Non-Lab Venipuncture / Unknown 04/19/2024 6:57 AM ROD PULLER 04/19/2024 8:09 AM ROD PULLER us Deborah Lipscomb MD HEMATOLOGY Final R esult Performing Organization Address City/[facility]/ZIP Co de Phone Number [facility] [address] [address], [place] * SCAN-CARDIAC STRIP (04/18/2024 10:04 PM ROD PULLER) us Scanner OTHER Final Result * SCAN-CARDIAC STRIP (04/18/2024 5:43 PM ROD PULLER) us Scanner OTHER Final Result * POTASSIUM (04/18/2024 12:45 PM ROD PULLER) Only the most recent of11 resultswithin the time period is included. POTASSIUM 3.9 3.5 - 5.1 mmol/L 04/18/2024 1:14 PM ROD PULLER [facility] Blood BLOOD SPECIMEN / Unknown Venipuncture / Unknown 04/18/2024 12:45 PM ROD PULLER 04/18/2024 12:51 PM ROD PULLER us Deborah Lipscomb MD CHEMISTRY Final R esult [facility] [address] [place] [address], [place] * SCAN-CARDIAC STRIP (04/18/2024 7:46 AM ROD PULLER) us Scanner OTHER Final Result * SCAN-CARDIAC STRIP (04/17/2024 11:49 PM ROD PULLER) us Scanner OTHER Final Result * SCAN-CARDIAC STRIP (04/17/2024 9:12 PM ROD PULLER) us Scanner OTHER Final Result * SCAN-CARDIAC STRIP (04/17/2024 7:41 AM ROD PULLER) us Scanner OTHER Final Result * SCAN-CARDIAC STRIP (04/16/2024 11:25 PM ROD PULLER) us Scanner OTHER Final Result * (ABNORMAL) ALT (SGPT) (04/16/2024 10:19 AM ROD PULLER) ALT (SGPT) 201(H) 10 - 50 IU/L 04/16/2024 11:00 AM ROD PULLER [facility] Blood BLOOD SPECIMEN / Unknown Butterfly / Unknown 04/16/2024 10:19 AM ROD PULLER 04/16/2024 10:30 AM ROD PULLER Deborah Lipscomb MD CHEMISTRY Final R esult Performing Organization Address City/[facility]/ZIP Co de Phone Number [facility] [address] [address], [place] * (ABNORMAL) AST (SGOT) (04/16/2024 10:19 AM ROD PULLER) AST (SGOT) 58(H) 10 - 50 IU/L 04/16/2024 11:00 AM ROD PULLER [facility] Blood BLOOD SPECIMEN / Unknown Butterfly / Unknown 04/16/2024 10:19 AM ROD PULLER 04/16/2024 10:30 AM ROD PULLER Deborah Lipscomb MD CHEMISTRY Final R esult Performing Organization Address [facility] Co de Phone Number [facility] [address] [address], [place] * (ABNORMAL) ALK PHOSPHATASE (04/16/2024 10:19 AM ROD PULLER) ALK PHOSPHATASE 157(H) 40 - 129 IU/L 04/16/2024 11:00 AM ROD PULLER [facility] Blood BLOOD SPECIMEN / Unknown Butterfly / Unknown 04/16/2024 10:19 AM ROD PULLER 04/16/2024 10:30 AM ROD PULLER Deborah Lipscomb MD CHEMISTRY Final R esult Performing Organization Address City/[facility]/ZIP Co de Phone Number [facility] [address] [address], [place] * (ABNORMAL) BILIRUBIN DIRECT (04/16/2024 10:19 AM ROD PULLER) BILIRUBIN,DIRE CT 0.6(H) 0.0 - 0.2 mg/dL 04/16/2024 11:00 AM ROD PULLER [facility] Blood BLOOD SPECIMEN / Unknown Butterfly / Unknown 04/16/2024 10:19 AM ROD PULLER 04/16/2024 10:30 AM ROD PULLER Deborah Lipscomb MD CHEMISTRY Final [facility] Performing Organization Address [facility] Phone Number [facility] [address] [place] [address], * SCAN-CARDIAC STRIP (04/16/2024 8:23 AM ROD PULLER) us Scanner OTHER Final Result * (ABNORMAL) SODIUM (04/16/2024 8:09 AM ROD PULLER) Only the most recent of2 resultswithin the time period is included. SODIUM 134(L) 136 - 145 mmol/L 04/16/2024 9:45 AM ROD PULLER [facility] Blood BLOOD SPECIMEN / Unknown Non-Lab Venipuncture / Unknown 04/16/2024 8:09 AM ROD PULLER 04/16/2024 9:06 AM ROD PULLER Deborah Lipscomb MD CHEMISTRY Final R [facility] Performing Organization Address [facility] Phone Number [facility] [address] [place] [address], * (ABNORMAL) CREATININE (04/16/2024 8:09 AM ROD PULLER) Only the most recent of2 resultswithin the time period is included. eGFR 37(L) >90 mL/min/1.7 3m2 04/16/2024 9:45 AM ROD PULLER [facility] [employer] [facility] Comment:As of 2021, eG FR is calculated by the CKD-EPI creatinine equation without race adjustment. eGFR can be influenced by muscle mass, exercise, and diet. The reported eGFR is an estimation only and is only applicable if the renal function is stable. CREATININE 1.91(H) 0.70 - 1.20 mg/dL 04/16/2024 9:45 AM ROD PULLER [facility] Blood BLOOD SPECIMEN / Unknown Non-Lab Venipuncture / Unknown 04/16/2024 8:09 AM ROD PULLER 04/16/2024 9:06 AM ROD PULLER us Deborah Lipscomb MD CHEMISTRY Final R esult Performing Organization Address City/[facility]/ZIP Co de Phone Number [facility] [address] [place] [address], [place] * SCAN-CARDIAC STRIP (04/16/2024 1:03 AM ROD PULLER) us Scanner OTHER Final Result * SCAN-CARDIAC STRIP (04/15/2024 8:37 PM ROD PULLER) us Scanner OTHER Final Result * EKG 12 LEAD (04/15/2024 12:31 PM ROD PULLER) Only the most recent of6 resultswithin the [...] NOW QTc 448 ms BEYOND NOW P [place] 53 degrees BEYOND NOW R [place] -60 degrees BEYOND NOW T [place] 118 degrees BEYOND NOW 04/15/2024 12:3 1 PM ROD PULLER 04/16/2024 1:25 AM ROD PULLER us Jossie Prado PST SPECIALIST EKG ORD Final Result Performing Organization Address [facility] Co de Phone Number BEY[place] NOW [place], [place] * (ABNORMAL) GLUCOSE METER (04/15/2024 7:49 AM ROD PULLER) Only the most recent of33 resultswithin the time period is included. GLUCOSE METER 134(H) 65 - 100 mg/dL 04/15/2024 7:54 AM ROD PULLER [facility] Blood BLOOD SPECIMEN / Unknown 04/15/2024 7:49 AM ROD PULLER 04/15/2024 7:54 AM ROD PULLER us Deborah Lipscomb MD CHEMISTRY Final R esult [facility] [address] [place] [address], [place] * SCAN-CARDIAC STRIP (04/15/2024 7:26 AM ROD PULLER) us Scanner OTHER Final Result * SCAN-CARDIAC STRIP (04/15/2024 3:06 AM ROD PULLER) us Scanner OTHER Final Result * SCAN-CARDIAC STRIP (04/14/2024 9:43 PM ROD PULLER) us Scanner OTHER Final Result * SCAN-CARDIAC STRIP (04/14/2024 3:27 PM ROD PULLER) us Scanner OTHER Final Result * ICD ANALYSIS DUAL WITHOUT REPROGRAM (04/14/2024 3:13 PM ROD PULLER) Narrative Vasyl Kim MD - 04/14/2024 3:13 PM ROD PULLER Marino Strickland RN 04/14/2024 3:17 PM ICD EVALUATION REPORT 04/14/2024 Summary: Normal pacemaker function. Lead trends stable. 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 No VT detections. AP 20.9%, [employer]CHNICIAN 0.2%. Battery estimating 11.2 years remaining. Indication for ICD: Primary Prevention of Sudden Cardiac Primary MD: Shana Lozano DO Primary Multi Needle Machine Operator: [facility] Implanting MD: Bert Quiros- [facility] DEVICE DATA [employer]: Model [place] XT [id number] Implant Date 04/09/2023 LEAD DATA Atrial Lead: [employer]: Model 5076-52 cm Implant Date 04/09/23 RV Lead: [employer]: Model [id number]-62 cm Implant Date 04/09/23 [...] Tachy therapy hx: none Location of evaluation: [facility] [id number] Reason for evaluation: MD request MEASUREMENTS [...] permanent changes made. Follow up: follows with [facility] device clinic Marino Strickland RN Nurse Clinician II [facility] Pacemaker/ICD [phone] Vasyl Kim MD CARDIAC SERVICES ORD Final Result * SCAN-CARDIAC STRIP (04/14/2024 7:21 AM ROD PULLER) Scanner OTHER Final Result * URINALYSIS MICROSCOPIC (04/14/2024 6:29 AM ROD PULLER) Only the most recent of2 resultswithin the time period is included. RBC 0-2 0-2, None Seen /HPF 04/14/2024 7:26 AM ROD PULLER [facility] WBC 3-5 0-2, 3-5, None Seen /HPF 04/14/2024 7:26 AM ROD PULLER [facility] BACTERIA None Seen None Seen, Rare, Few Bacteria/ HPF 04/14/2024 7:26 AM ROD PULLER [facility] EPITHELIAL CELLS None Seen None Seen, Few Epi/HPF 04/14/2024 7:26 AM ROD PULLER [facility] HYALINE CASTS 0-2 0-2, 3-5 /LPF 04/14/2024 7:26 AM [facility] Urine URINE SPECIMEN / Unknown Non-Blood / Unknown 04/14/2024 6:29 AM ROD PULLER 04/14/2024 6:36 AM ROD PULLER Santy Crowley MD URINE Final Re sult [facility] [address] [place] [address], * (ABNORMAL) UA W/ SEDIMENT EXAM REFLEXED PER CRITERIA (04/14/2024 6:29 AM ROD PULLER) Only the most recent of2 resultswithin the time period is included. COLOR Yellow Yellow Color 04/14/2024 7:26 AM ROD PULLER [facility] CLARITY Clear Clear Clarity 04/14/2024 7:26 AM ROD PULLER [facility] SPECIFIC GRAVITY,URINE 1.015 1.010, 1.015, 1.020, 1.025 04/14/2024 7:26 AM [facility] PH,URINE 5.5 6.0, 7.0, 8.0, 5.5, 6.5, 7.5, 8.5 04/14/2024 7:26 AM [facility] UROBILINOGEN, QUALITATIVE Normal Normal EU/dl 04/14/2024 7:26 AM [facility] PROTEIN, URINE Negative Negative mg/dL 04/14/2024 7:26 AM [facility] GLUCOSE, URINE Negative Negative mg/dL 04/14/2024 7:26 AM [facility] KETONES,URINE Negative Negative mg/dL 04/14/2024 7:26 AM [facility] BILIRUBIN,URI NE Negative Negative 04/14/2024 7:26 AM [facility] OCCULT BLOOD,URINE Negative Negative 04/14/2024 7:26 AM [facility] NITRITE Negative Negative 04/14/2024 7:26 AM [facility] LEUKOCYTE ESTERASE Trace(A) Negative 04/14/2024 7:26 AM [facility] Urine URINE SPECIMEN / Unknown Non-Blood / Unknown 04/14/2024 6:29 AM ROD PULLER 04/14/2024 6:36 AM ROD PULLER us Santy Crowley MD URINE Final Re sult [facility] [address] [place] [id number], * SCAN-CARDIAC STRIP (04/13/2024 8:03 PM ROD PULLER) us Scanner OTHER Final Result * PICC LINE (04/13/2024 7:28 PM ROD PULLER) Narrative Eleonora Fox RN - 04/13/2024 7:28 PM ROD PULLER Eleonora Fox RN 04/13/2024 7:33 PM PICC Line Insertion Note 04/13/2024 7:28 PM Procedure education reviewed: Placement procedure, discussed with: Patient face to face. Patient face to face confirms understanding of procedure. Mobile Product Manager used: No Reason for insertion: MD order [...] (Active) 04/13/241899 Right;Basilic;Upper Arm Vessel Diameter: 0.46 Ztszmkvf-ve-Fytk Ratio (%): Visible Catheter Length (cm): 0 [...] Dressing change due date 04/20/2024 04/13/241899 Line Crop Specialist Name: Bard Line Type: Valved Power PICC Lot Number: [id number] Access Assistance:Modified Seldinger Technique (Micro-Introducer) WITH Dermatotomy [...] * Insert PICC line (04/13/2024 7:20 PM ROD PULLER) Narrative Eleonora Fox, AMELIA - 04/13/2024 7:20 PM ROD PULLER Eleonora Fox, RN 04/13/2024 7:22 PM PICC [...] ult * SCAN-CARDIAC STRIP (04/13/2024 3:12 PM ROD PULLER) us Scanner OTHER Final Result * ICD ANALYSIS DUAL WITHOUT REPROGRAM (04/13/2024 1:57 PM ROD PULLER) Narrative Vasyl Kim MD - 04/13/2024 1:57 PM ROD PULLER Mirela Bates, AMELIA 04/13/2024 2:23 PM ICD EVALUATION REPORT 04/13/2024 Summary: Normal pacemaker function. Lead trends stable. 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 No VT detections. AP 2.9%, [employer] FIELD TECHNICIAN 51.9%. Battery estimating 11.3 years remaining. Indication for ICD: Primary Prevention of Sudden Cardiac Primary MD: Shana Lozano DO Primary Multi Needle Machine Operator: [facility] Implanting MD: Bert Qiuros- [facility] DEVICE DATA Crop Specialist Medtronic: Model [place] XT DR [id number] Implant Date 04/09/2023 LEAD DATA Atrial Lead: Crop Specialist Medtronic: Model 5076-52 cm Implant Date 04/09/23 RV Lead: Crop Specialist Medtronic: Model [id number]-62 cm Implant Date 04/09/23 [...] Tachy therapy hx: none Location of evaluation: [facility] [id number] Reason for evaluation: MD request- check [...] permanent changes made. Follow up: follows with [facility] device clinic Mirela Bates RN Nurse Clinician II [facility] Pacemaker/ICD Clinic [phone] us Vasyl Kim MD CARDIAC SERVICES ORD Final Result * SCAN-CARDIAC STRIP (04/13/2024 7:35 AM ROD PULLER) Scanner OTHER Final Result * (ABNORMAL) COMPREHENSIVE BLOOD GAS MIXED VENOUS (04/12/2024 4:48 PM ROD PULLER) O2 SATURATION, MEASURED, MIXED VENOUS 41(L) 70 - 75 % 04/12/2024 4:48 PM ROD PULLER [facility] N[facility]AL LABORATORY PATIENT TEMPERATURE 37.0 Degrees C 04/12/2024 4:48 PM ROD PULLER [facility]- NTRNC LABORATORY COLLECTION SITE PULMONARY ARTERY 04/12/2024 4:48 PM ROD PULLER [facility] HEMOGLOBIN,BLOO D GAS 11.4(L) 13.5 - 17.5 g/dL 04/12/2024 4:48 PM ROD PULLER [facility] [place] [facility] Blood BLOOD SPECIMEN / Unknown 04/12/2024 4:48 PM ROD PULLER 04/12/2024 4:48 PM ROD PULLER us [facility] CHEMISTRY Final Re sult [facility] LABORATORY-CENTRAL LABORATORY [address] [place] [address], [place] * CVL OTHER PROCEDURE (04/12/2024 4:09 PM ROD PULLER) Anatomical Region Laterality Modality Other 04/12/2024 4:09 PM ROD PULLER us Provider Referring CV IMAGING Final Result * SCAN-CARDIAC STRIP (04/12/2024 3:27 PM ROD PULLER) us Scanner OTHER Final Result * US RENAL AND BLADDER COMPLETE (04/12/2024 2:51 PM ROD PULLER) Anatomical Region Laterality Modality Abdomen, AORTA, KIDNEYS Ultrasou nd 04/12/2024 3:46 PM ROD PULLER Impressions 04/12/2024 3:46 PM ROD PULLER Simple appearing right lower pole renal cyst. Otherwise, no concerning findings on a renal ultrasound. Dictated by Danny Rubio MD @ 04/12/2024 3:46:12 PM (Electronically Signed) Narrative 04/12/2024 3:46 PM ROD PULLER For Patients: As a result of the [...] COLOR W LTD DOPPLER (04/12/2024 10:52 AM ROD PULLER) MITRAL VALVE MR ERO 13 mm2 EJECTION FRACTION 10 - 20% Anatomical Region Laterality Modality Ultrasound 04/12/2024 10:2 2 AM ROD PULLER Narrative 04/12/2024 1:01 PM ROD PULLER TRANSESOPHAGEAL ECHOCARDIOGRAM CASEY SOLER : 1950 73 years Study Date: 04/12/2024 10:22:59 AM Gender: M BP: 96/76 mmHg Height: 172.00 cm BSA: 1.91 m Weight: 78.00 kg Tech: LETICIA/ION Referring MD: FARA BLACKWELL Site: [facility] Reading Location: [facility] Patient Location: Inpatient. Procedure: NOEL, [...] . This study was interpreted by an [facility] accredited facility. Final Procedure Note Troy Munoz MD - 04/12/2024 TRANSESOPHAGEAL ECHOCARDIOGRAM CASEY SOLER : 1950 73 years Study Date: 04/12/2024 10:22:59 AM Gender: M BP: 96/76 mmHg Height: 172.00 cm BSA: 1.91 m Weight: 78.00 kg Tech: LETICIA/IJ Referring MD: FARA BLACKWELL Site: [facility] Reading Location: [facility] Patient Location: Inpatient. Procedure: NOEL, [...] . This study was interpreted by an [facility] accredited facility. Final us Fara Blackwell PST SPECIALIST ECHO ORD Final Resu lt * EP OTHER PROCEDURE (04/12/2024 10:48 AM ROD PULLER) Anatomical Region Laterality Modality Other Narrative 04/12/2024 10:48 AM ROD PULLER Troy Munoz MD 04/12/2024 10:48 AM [facility] Procedure Note Date of Service: 04/12/2024 Procedure [...] sult * SCAN-CARDIAC STRIP (04/12/2024 3:46 AM ROD PULLER) us Scanner OTHER Final Result * SCAN-OPERATIVE/PROCEDURE REPORT (04/12/2024 12:00 AM ROD PULLER) Narrative 04/12/2024 12:00 AM ROD PULLER Ordered by an unspecified provider. us Other Clinical Staff OTHER Final Resul t * SCAN-CARDIAC STRIP (04/11/2024 8:21 PM ROD PULLER) us Scanner OTHER Final Result * SCAN-CARDIAC STRIP (04/11/2024 4:18 PM ROD PULLER) us Scanner OTHER Final Result * SCAN-CARDIAC STRIP (04/11/2024 7:48 AM ROD PULLER) us Scanner OTHER Final Result * SCAN-CARDIAC STRIP (04/10/2024 4:04 PM ROD PULLER) us Scanner OTHER Final Result * SCAN-CARDIAC STRIP (04/10/2024 10:29 AM ROD PULLER) us Scanner OTHER Final Result * SCAN-CARDIAC STRIP (04/10/2024 5:01 AM ROD PULLER) us Scanner OTHER Final Result * SCAN-CARDIAC STRIP (04/09/2024 7:40 PM ROD PULLER) us Scanner OTHER Final Result * SCAN-CARDIAC STRIP (04/09/2024 3:40 PM ROD PULLER) us Scanner OTHER Final Result * PATH TISSUE EXAM (04/08/2024 12:39 PM ROD PULLER) Case Report Pathology Report Case: [id number] Authorizing Provider: Chepe Francis MD Collected: 04/08/2024 1239 Ordering Location: [facility] Received: 04/08/2024 1244 [facility] Pathologist: Lukasz Pinto MD Specimen: Gastric Biopsy 04/09/2024 11:12 AM ROD PULLER [employer] ENTRAL LABORATORY Final Diagnosis A) STOMACH, BIOPSY: 1. Normal gastric antral and body mucosae with endoscopic erosion (see comment) 2. Negative for chronic gastritis or Helicobacter 04/09/2024 11:12 AM [facility] [employer] ENTRAL LABORATORY Comment A) We note the endoscopic presence of an erosion. The sampled mucosa is histologically normal. In this context patchy reactive gastropathy due to chemical type injury (NSAIDs, alcohol, bile reflux, etc.) seems likely. Please correlate clinically. 04/09/2024 11:12 AM [facility] [employer] ENTRAL LABORATORY Clinical Information 73-year-old male with iron deficiency anemia and melena. He is on chronic aspirin, Plavix, and ibuprofen. EGD identified a single erosion in the prepyloric region of the stomach. 04/09/2024 11:12 AM [facility] [employer] ENTRAL LABORATORY Gross Description A) Received in formalin is a 6 x 3 x 1 mm aggregate of alvarez mucosa. Submitted in one cassette. It is labeled with the patient's name and designated gastric biopsy. Joana Estrada 04/08/2024 1:06 PM 04/09/2024 11:12 AM [facility] [employer] ENTRAL LABORATORY Microscopic Description The final diagnosis is based on microscopic examination of appropriate sections of all specimens. 04/09/2024 11:12 AM [facility] [employer] ENTRNC LABORATORY Additional Information Interpreted at [facility], Central Laboratory - [address] [facility] [address], [place] [address] 04/09/2024 11:12 AM ROD PULLER [facility] LABORATORY-C ENTRAL LABORATORY Biopsy GASTRIC BIOPSY SPECIMEN / Unknown 04/08/2024 12:39 PM ROD PULLER 04/08/2024 12:44 PM ROD PULLER Chepe Francis MD PATHOLOGY/CYTOLOGY Christy l Result [facility]-CENTRAL LABORATORY [address] [place] [address], [place] * ENDOSCOPY (04/08/2024 9:49 AM ROD PULLER) 04/08/2024 9:49 AM ROD PULLER Narrative Transcriptions Chepe Francis MD - 04/08/2024 [...] surgery and alternatives discussed. The endoscope [id number] was introduced through the mouth, and advanced [...] * EXTRA TUBE LAVENDER (04/08/2024 6:45 AM ROD PULLER) Only the most recent of2 resultswithin the time period is included. Blood BLOOD SPECIMEN / Unknown Non-Lab Venipuncture / Unknown 04/08/2024 6:45 AM ROD PULLER 04/08/2024 6:57 AM ROD PULLER Joseph Arora MD LABORATORY Final Re sult [facility] LABORAT[facility]-CENTRAL LABORATORY [address] [place] [address], [place] * EXTRA TUBE BLUE (04/08/2024 6:45 AM ROD PULLER) Only the most recent of3 resultswithin the time period is included. Blood BLOOD SPECIMEN / Unknown Non-Lab Venipuncture / Unknown 04/08/2024 6:45 AM ROD PULLER 04/08/2024 6:57 AM ROD PULLER Joseph Arora MD LABORATORY Final Re sult Performing Organization Address [facility] Co de Phone Number [facility] [address] [place] [address], [place] * SCAN-CARDIAC STRIP (04/07/2024 11:52 PM ROD PULLER) Scanner OTHER Final Result * (ABNORMAL) DIGOXIN (04/07/2024 1:50 PM ROD PULLER) Pathologist [facility] DIGOXIN 2.5(H) 0.8 - 2.0 ng/mL 04/07/2024 2:32 PM ROD PULLER [facility] TRAL LABORATORY DATE OF LAST DOSE Not Given 04/07/2024 2:32 PM ROD PULLER [facility] TRAL LABORATORY TIME OF LAST DOSE Not Given 04/07/2024 2:32 PM ROD PULLER [facility] TRAL LABORATORY Blood BLOOD SPECIMEN / Unknown Venipuncture / Unknown 04/07/2024 1:50 PM ROD PULLER 04/07/2024 1:55 PM ROD PULLER Guille Choi NP CHEMISTRY Final Result Performing Organization Address [facility] Co de Phone Number [facility] [address] [address], [place] * COVID/FLU/RSV PANEL (04/07/2024 9:48 AM ROD PULLER) Pathologist [facility] COVID 19 [facility] MOLECULAR Negative Negative 04/07/2024 12:16 PM ROD PULLER [facility] TRAL LABORATORY Comment:All PCR tests are krishnan bject to false negative result due to variability in viral load and collection technique. A negative result does not rule out a SARS-CoV-2 infection. Clinical correlation required. INFLUENZA A PCR Negative 12:16 PM ROD PULLER [facility]AT[facility]-[place] TRAL LABORATORY INFLUENZA B PCR Negative 12:16 PM ROD PULLER [facility] TRAL LABORATORY Respiratory Syncytial Virus Negative 04/07/2024 12:16 PM ROD PULLER [facility] TRAL LABORATORY Swab NASOPHARYNGEAL SWAB / Unknown Non-Blood / Unknown 04/07/2024 9:48 AM ROD PULLER 04/07/2024 10:17 AM ROD PULLER us Joseph Arora MD MICROBIOLOGY Final Re sult [facility] [address] [place] [address], * ICD ANALYSIS DUAL WITHOUT REPROGRAM (04/07/2024 9:05 AM ROD PULLER) Narrative Chato Benz MD - 04/07/2024 9:05 AM ROD PULLER Mirela Bates RN 04/07/2024 9:59 AM ICD EVALUATION REPORT April 07, 2024 Summary: Normal pacemaker function. Lead trends stable. One AT/AF detection- beginning on 04/03/24 and has continuous since this time. Poor ventricular rate control. One VT detection on 01/29/24- 3 seconds rate of 233 bpm. 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 Battery estimating 11.3 years remaining. Indication for ICD: Primary Prevention of Sudden Cardiac Primary MD: Shana Lozano DO Primary Multi Needle Machine Operator: [facility] Implanting MD: Bert Quiros- [facility] DEVICE DATA Crop Specialist [employer]tr[employer]: Model [place] XT DR [id number] Implant Date 04/09/2023 LEAD DATA Atrial Lead: Crop Specialist [employer]: Model 5076-52 cm Implant Date 04/09/23 RV Lead: Crop Specialist [employer]: Model [id number]-62 cm Implant Date 04/09/23 [...] Tachy therapy hx: none Location of evaluation: [facility] [id number] Reason for evaluation: request MEASUREMENTS Atrial [...] permanent changes made. Follow up: follows with [facility] device clinic Mirela Bates RN Nurse Clinician II I Pacemaker/ICD Clinic [phone] us Chato Benz MD CARDIAC SERVICES ORD F inal Result * ECHO TTE LIMITED W CONTRAST W COLOR W DOPPLER (04/07/2024 8:53 AM ROD PULLER) AORTIC VALVE MEAN PG 2 mmHg EJECTION FRACTION 20 % LVEDD 6.6 cm Anatomical Region Laterality Modality Ultrasound 04/07/2024 8:08 AM ROD PULLER Narrative 04/07/2024 9:36 AM ROD PULLER ECHOCARDIOGRAM CASEY SOLER : 1950 73 years Study Date: 04/07/2024 8:08:24 AM Gender: M BP: 90/87 mmHg Height: 172.00 cm BSA: 1.94 m Weight: 81.00 kg Tech: LETICIA Referring MD: GUILLE CHOI Site: [facility] Reading Location: ANW IP Patient Location: Inpatient. [...] documentation: 2 ml diluted Definity, lot #[id number], [facility]# [id number] was administered peripherally to enhance visualization of all left ventricular segments. . This study was interpreted by an [facility] accredited facility. Final Procedure Note Jayashree Velarde MD - 04/07/2024 ECHOCARDIOGRAM CASEY SOLER : 1950 73 years Study Date: 04/07/2024 8:08:24 AM Gender: M BP: 90/87 mmHg Height: 172.00 cm BSA: 1.94 m Weight: 81.00 kg Tech: LETICIA Referring MD: GUILLE CHOI Site: [facility] Reading Location: [facility] IP Patient Location: Inpatient. [...] documentation: 2 ml diluted Definity, lot #[id number], [facility]#[id number] was administered peripherally to enhance visualization of allleft ventricular segments. . This study was interpreted by an [facility] accredited facility. Final us Guille Choi NP ECHO ORD Final Result * (ABNORMAL) LACTATE VENOUS (04/07/2024 6:20 AM ROD PULLER) Only the most recent of3 resultswithin the time period is included. [facility] LACTATE,VENOUS 2.5(H) 0.5 - 2.0 mmol/L 04/07/2024 7:32 AM ROD PULLER [facility] LABORATORY Blood BLOOD SPECIMEN / Unknown Venipuncture / Unknown 04/07/2024 6:20 AM ROD PULLER 04/07/2024 6:59 AM ROD PULLER us Guille Choi NP CHEMISTRY Final Result [facility] [address] [place] [address], * SCAN-CARDIAC STRIP (04/07/2024 5:29 AM ROD PULLER) us Scanner OTHER Final Result * SCAN-CARDIAC STRIP (04/07/2024 3:14 AM ROD PULLER) us Scanner OTHER Final Result * TYPE & SCREEN (04/07/2024 12:39 AM ROD PULLER) ABORH A Rh Positive 04/07/2024 2:10 AM ROD PULLER [facility] LAB BLOOD BANK ANTIBODY SCREEN Negative Negative 04/07/2024 2:10 AM ROD PULLER [facility] LAB BLOOD BANK SPECIMEN EXPIRATION DATE/TIME 04/10/24 23:59 04/07/2024 2:10 AM ROD PULLER [facility] LAB BLOOD BANK Blood BLOOD SPECIMEN / Unknown Butterfly / Unknown 04/07/2024 12:39 AM ROD PULLER 04/07/2024 1:05 AM ROD PULLER Guille Choi PST SPECIALIST BLOOD BANK Final Result [facility] BLOOD BANK [address] [place] [address], * (ABNORMAL) Iron plus iron binding cap AM (04/07/2024 12:39 AM ROD PULLER) IRON 57(L) 61 - 157 ug/dL 04/07/2024 2:03 AM ROD PULLER [facility] LABORATORY UIBC (UNSATURATED) 229 112 - 347 ug/dL 04/07/2024 2:03 AM ROD PULLER [facility] LABORATORY IRON BINDING CAPACITY 286 250 - 400 ug/dL 04/07/2024 2:03 AM [facility] LABORATORY IRON,% SATURATION 20 14 - 50 % 04/07/2024 2:03 AM ROD PULLER [facility] LABORATORY Blood BLOOD SPECIMEN / Unknown Butterfly / Unknown 04/07/2024 12:39 AM ROD PULLER 04/07/2024 1:05 AM ROD PULLER Parmjit Berrios MD CHEMISTRY Final Resul t [facility] [address] [place] [address], * (ABNORMAL) Reticulocyte count AM (04/07/2024 12:39 AM ROD PULLER) RETIC% 2.3(H) 0.5 - 1.5 % 04/07/2024 1:35 AM ROD PULLER [facility] LABOR[facility] RETIC (ABSOLUTE) 0.09(H) 0.03 - 0.08 mil/cu mm 04/07/2024 1:35 AM ROD PULLER [facility] Blood BLOOD SPECIMEN / Unknown Butterfly / Unknown 04/07/2024 12:39 AM ROD PULLER 04/07/2024 1:05 AM ROD PULLER Parmjit Berrios MD HEMATOLOGY Final Resul t Performing Organization Address [facility] Co de Phone Number [facility] [address] [place] [address], * Ferritin AM (04/07/2024 12:39 AM ROD PULLER) FERRITIN 275.0 30.0 - 400.0 ng/mL 04/07/2024 1:58 AM ROD PULLER [facility] Blood BLOOD SPECIMEN / Unknown Butterfly / Unknown 04/07/2024 12:39 AM ROD PULLER 04/07/2024 1:05 AM ROD PULLER Parmjit Berrios MD CHEMISTRY Final Resul t Performing Organization Address [facility] de Phone Number [facility] [address] [place] [address], * (ABNORMAL) COMP METABOLIC PANEL (04/07/2024 12:39 AM ROD PULLER) SODIUM 131(L) 136 - 145 mmol/L 04/07/2024 1:30 AM ROD PULLER [facility] TRAL LABORATORY POTASSIUM 3.8 3.5 - 5.1 mmol/L 04/07/2024 1:30 AM ROD PULLER [facility] TRAL LABORATORY CHLORIDE 86(L) 98 - 107 mmol/L 04/07/2024 1:30 AM ROD PULLER [facility] LAB[facility] CO2,TOTAL 23 22 - 29 mmol/L 04/07/2024 1:30 AM ROD PULLER [facility] TRAL LABORATORY ANION GAP 22(H) 5 - 18 04/07/2024 1:30 AM ROD PULLER [facility] LABOR[facility] GLUCOSE 110(H) 70 - 99 mg/dL 04/07/2024 1:30 AM [facility] LABORATORY CALCIUM 9.1 8.8 - 10.4 mg/dL 04/07/2024 1:30 AM [facility] LABORAT[facility] Comment: Reference ranges for this test were updated on 01/06/2024 to reflect our healthy population more accurately. Reference range changes are not retroactively applied to results, but previous results using the same methodology can be interpreted in the context of the new reference range. BUN 94(H) 8 - 23 mg/dL 04/07/2024 1:30 AM [facility] LAB[facility] CREATININE 2.41(H) 0.70 - 1.20 mg/dL 04/07/2024 1:30 AM [facility] BUN/CREAT RATIO 39(H) 10 - 20 1:30 AM [facility] LAB[facility] eGFR 28(L) >90 mL/min/1. 73m2 04/07/2024 1:30 AM [facility] LABORAT[facility] Comment:As of 2021, eG FR is calculated by the CKD-EPI creatinine equation without race adjustment. eGFR can be influenced by muscle mass, exercise, and diet. The reported eGFR is an estimation only and is only applicable if the renal function is stable. ALBUMIN 3.8(L) 4.0 - 4.9 g/dL 04/07/2024 1:30 AM [facility] LABORAT[facility] PROTEIN,TOTAL 6.4 6.0 - 8.0 g/dL 04/07/2024 1:30 AM [facility] LAB[facility] BILIRUBIN,TOTAL 0.7 0.0 - 1.2 mg/dL 04/07/2024 1:30 AM [facility] ALK PHOSPHATASE 96 40 - 129 IU/L 04/07/2024 1:30 AM [facility] ALT (SGPT) 9(L) 10 - 50 IU/L 04/07/2024 1:30 AM [facility] AST (SGOT) 22 10 - 50 IU/L 04/07/2024 1:30 AM ROD PULLER [facility] LABORATORY-LI TRAL LABORATORY Blood BLOOD SPECIMEN / Unknown Butterfly / Unknown 04/07/2024 12:39 AM ROD PULLER 04/07/2024 1:05 AM ROD PULLER us Guille Choi NP CHEMISTRY Final Result [facility] LABORATORY-CENTRAL LABORATORY [address] [place] [address], [place] * XR CHEST 1 VIEW PORTABLE (04/06/2024 8:19 PM ROD PULLER) Anatomical Region Laterality Modality HEART, THORAX, CHEST Computed Ra diography 04/06/2024 8:19 PM ROD PULLER Impressions 04/06/2024 8:48 PM ROD PULLER Stable size of cardiomediastinal silhouette with pacemaker/AICD leads overlying the right atrium and right ventricle. Likely pulmonary vascular congestion with subtle interstitial opacities in the lung bases, right greater than left, differential includes mild edema and atypical infectious/inflammatory process. No definite pleural effusion or pneumothorax. No acute bony abnormality. Narrative 04/06/2024 8:48 PM ROD PULLER For Patients: As a result of the Cures Act, medical imaging exams and procedure reports are released immediately into your electronic medical record. You may view this report before your referring provider. If you have questions, please contact your health care provider. EXAM: XR CHEST 1 VIEW PORTABLE LOCATION: [facility] DATE: 04/06/2024 INDICATION: Shortness of breath COMPARISON: Chest radiograph 04/09/2023. Procedure Note Derek Jain MD - 04/06/2024 For Patients: As a result of the Cures Act, medical imagingexams and procedure reports are released immediately into your electronicmedical record. You may view this report before your referring provider.If you have questions, please contact your health care provider. EXAM: XR CHEST 1 VIEW PORTABLE LOCATION: [facility] DATE: 04/06/2024 INDICATION: Shortness of breath COMPARISON: [...] * (ABNORMAL) TROPONIN I (04/06/2024 7:53 PM ROD PULLER) Only the most recent of2 resultswithin the time period is included. Pathologist [facility] TROPONIN I KELLI 0.043(HH) <0.030 ng/mL 04/06/2024 8:31 PM ROD PULLER [facility] Blood BLOOD SPECIMEN / Unknown Venipuncture / Unknown 04/06/2024 7:53 PM ROD PULLER 04/06/2024 7:59 PM ROD PULLER us John Ramirez MD CHEMISTRY Final Result Performing Organization Address [facility]/State/ZIP Co de Phone Number [place] [address] [place] [address], * BEDSIDE US STUDY ARCHIVE (04/06/2024 3:07 PM ROD PULLER) Narrative Charly Monroe MD - 04/06/2024 3:07 PM ROD PULLER Jun Mar MD 04/06/2024 3:08 PM BEDSIDE [...] CBC WITH AUTO DIFFERENTIAL (04/06/2024 2:45 PM ROD PULLER) [facility] WHITE BLOOD COUNT 12.6 4.5 - 13.5 thou/cu mm 04/06/2024 3:10 PM ROD PULLER [facility] RED BLOOD COUNT 4.39(L) 4.70 - 6.10 mil/cu mm 04/06/2024 3:[address] [facility] HEMOGLOBIN 13.0(L) 13.5 - 17.5 g/dL 04/06/2024 3:[address] [facility] HEMATOCRIT 39.5(L) 42.0 - 52.0 % 04/06/2024 3:[address] [facility] MCV 90 80 - 94 fL 04/06/2024 3:[address] [facility] MCH 29.6 27.0 - 31.0 pg 04/06/2024 3:[address] [facility] MCHC 32.9(L) 33.0 - 36.0 g/dL 04/06/2024 3:[address] [facility] RDW 17.4(H) 11.6 - 14.8 % 04/06/2024 3:[address] [facility] PLATELET COUNT 341 130 - 400 thou/cu mm 04/06/2024 3:[address] [facility] MPV 10.6(H) 7.4 - 10.4 fL 04/06/2024 3:[address] [facility] NRBC 0.0 0.0 - 0.9 % 04/06/2024 3:[address] [facility] % NEUT 85.1(H) 37.0 - 80.0 % 04/06/2024 3:[address] [facility] % LYMPH 5.6(L) 10.0 - 50.0 % 04/06/2024 3:[address] [facility] % MONO 6.8 0.0 - 12.0 % 04/06/2024 3:[address] [facility] % EOS 0.6 0.0 - 7.0 % 04/06/2024 3:[address] [facility] [facility] H[facility]PITAL % BASO 0.4 0.0 - 2.5 % 04/06/2024 3:[address] [facility] % IMMATURE GRAN (METAS,MYELOS,[place] OS) 1.5 % 04/06/2024 3:[address] [facility] ABSOLUTE NEUTROPHILS 10.7(H) 2.0 - 6.9 thou/cu mm 04/06/2024 3:10 PM [facility] PULL[facility] ABSOLUTE LYMPHOCYTES 0.7 0.6 - 3.4 thou/cu mm 04/06/2024 3:10 PM [facility] ABSOLUTE MONOCYTES 0.9 0.0 - 1.0 thou/cu mm 04/06/2024 3:10 PM [facility] ABSOLUTE EOSINOPHILS 0.1 <=0.7 thou/cu mm 04/06/2024 3:10 PM [facility] ABSOLUTE BASOPHILS 0.1 <0.2 thou/cu mm 04/06/2024 3:10 PM [facility] ABSOLUTE IMMATURE GRANULOCYTES(MET ,MYELOS,PROS) 0.2 <0.3 thou/cu mm 04/06/2024 3:10 PM [facility] Blood BLOOD SPECIMEN / Unknown IV Start / Unknown 04/06/2024 2:45 PM [facility] 04/06/2024 3:00 PM [facility] Jun Mar MD HEMATOLOGY Final Result [facility] [address] [place] [address], * EXTRA TUBE GOLD/SST (04/06/2024 2:45 PM R[facility] PULLER) Blood BLOOD SPECIMEN / Unknown Extra Tube / Unknown 04/06/2024 2:45 PM [facility]ER 04/06/2024 4:05 PM [facility] Charly Monroe MD LABORATORY Final Res ult [facility] [address] [place] [address], * TSH WITH REFLEX (04/06/2024 2:45 PM [facility] PULLER) TSH 3.73 0.35 - 4.94 uIU/mL 04/06/2024 3:43 PM [facility] Blood BLOOD SPECIMEN / Unknown IV Start / Unknown 04/06/2024 2:45 PM [facility]ER 04/06/2024 3:00 PM [facility]ER us Jun Mar MD CHEMISTRY Final Result Performing Organization Address City/[facility]/ZIP Co de Phone Number [place] [address] [place] [address], [place] [phone] * (ABNORMAL) BRAIN NATRIURETIC PEPTIDE (04/06/2024 2:45 PM ROD PULLER) BRAIN JEANACRLOS PEPTIDE 993(H) <100 pg/mL 04/06/2024 3:30 PM [facility] Blood BLOOD SPECIMEN / Unknown IV Start / Unknown 04/06/2024 2:45 PM R[facility] PULLER 04/06/2024 3:05 PM [facility]ER us Charly Monroe MD CHEMISTRY Final Res ult Performing Organization Address City/[facility]/ZIP Co de Phone Number [place] [address] [place] [address], [place] [phone] * SLIDE REVIEW (04/06/2024 2:45 PM [facility]ER) POIKILOCYTOSIS 1+ 04/06/2024 3:35 PM [facility] POLYCHROMASIA 1+ 04/06/2024 3:35 PM [facility] MORPHOLOGY COMMENT Ovalocytes Present 04/06/2024 3:35 PM [facility] MORPHOLOGY COMMENT Stomatocytes Present 04/06/2024 3:35 PM [facility] PLT COMMENT Adequate 04/06/2024 3:35 PM [facility] Blood BLOOD SPECIMEN / Unknown IV Start / Unknown 04/06/2024 2:45 PM [facility]ULLER 04/06/2024 3:00 PM [facility] us Jnu Mar MD LABORATORY Final Result Performing Organization Address City/[facility]/ZIP Co [place] [address], * (ABNORMAL) Heparin Level ( aka XA) (04/06/2024 2:45 PM [facility]ER) HEPARIN LEVEL <0.04(LL) 0.32 - 0.63 U/mL 04/06/2024 7:11 PM [facility] Blood BLOOD SPECIMEN / Unknown IV Start / Unknown 04/06/2024 2:45 PM [facility]ULLER 04/06/2024 6:09 PM [facility] us Jun Mar MD HEMATOLOGY Final Result [facility] [address] [place] [address], * APTT (04/06/2024 2:45 PM R[facility] PULLER) APTT 28 25 - 37 sec 04/06/2024 6:20 PM [facility] Blood BLOOD SPECIMEN / Unknown IV Start / Unknown 04/06/2024 2:45 PM [facility]ULLER 04/06/2024 6:09 PM [facility]ER Narrative [facility] - 04/06/2024 6:20 PM R[facility]ER Therapeutic Range 64-83 seconds. us Jun Mar MD HEMATOLOGY Final Result [facility] [address] [place] [address], * SCAN-CARDIAC STRIP (04/06/2024 12:00 AM [facility] PULLER) Narrative 04/06/2024 12:00 AM [facility]ER Ordered by an unspecified provider. Other Clinical Staff OTHER Final Resul t * SCAN-CARDIAC STRIP (04/06/2024 12:00 AM ROD PULLER) Narrative 04/06/2024 12:00 AM [facility]ER Ordered by an unspecified provider. Other Clinical Staff OTHER Final Resul t * SCAN-CARDIAC STRIP (03/22/2024 12:00 AM ROD PULLER) Narrative 03/22/2024 12:00 AM [facility]ER Ordered by an unspecified provider. us Other Clinical Staff OTHER Final Resul t * SCAN-CARDIAC STRIP (03/15/2024 12:00 AM ROD PULLER) Narrative 03/15/2024 12:00 AM [facility]ER Ordered by an unspecified provider. us Other Clinical Staff OTHER Final Resul t * SCAN-CARDIAC STRIP (03/08/2024 12:00 AM ROD PULLER) Narrative 03/08/2024 12:00 AM [facility]ULLER Ordered by an unspecified provider. Other Clinical Staff OTHER Final Resul t * SCAN-CARDIAC STRIP (03/01/2024 12:00 AM ROD PULLER) Narrative 03/01/2024 12:00 AM [facility]ER Ordered by an unspecified provider. us Other Clinical Staff OTHER Final Resul t * SCAN-CARDIAC STRIP (03/01/2024 12:00 AM ROD PULLER) Narrative 03/01/2024 12:00 AM [facility]ULLER Ordered by an unspecified provider. Other Clinical Staff OTHER Final Resul t * SCAN-CARDIAC STRIP (03/01/2024 12:00 AM ROD PULLER) Narrative 03/01/2024 12:00 AM R[facility] PULLER Ordered by an unspecified provider. us Other Clinical Staff OTHER Final Resul t * SCAN-CARDIAC STRIP (03/01/2024 12:00 AM ROD PULLER) Narrative 03/01/2024 12:00 AM ROD [facility]ULLER Ordered by an unspecified provider. us Other Clinical Staff OTHER Final Resul t * CT ABDOMEN PELVIS WO (01/16/2024 4:53 AM ROD PULLER) Anatomical Region Laterality Modality Abdomen, Pelvis, AORTA, LIVER, SPLEEN Computed Tomography 01/16/2024 4:53 AM [facility]ER Impressions 01/16/2024 5:21 AM [facility]OD PULLER 1. No obstructing ureteral or bladder calculi. [...] fat-containing umbilical hernia. Narrative 01/16/2024 5:21 AM ROD PULLER For Patients: As a result of the Cures Act, medical imaging exams and procedure reports are released immediately into your electronic medical record. You may view this report before your referring provider. If you have questions, please contact your health care provider. EXAM: CT ABDOMEN PELVIS WO LOCATION: [facility] DATE: 01/16/2024 INDICATION: Abdominal pain, acute, nonlocalized. [...] provider. EXAM: CT ABDOMEN PELVIS WO LOCATION: [facility] DATE: 01/16/2024 INDICATION: Abdominal pain, acute, nonlocalized. [...] 105 <=200 mg/dL 11/20/2023 3:06 PM CDT [facility] TRIGLYCERIDES 103 <150 mg/dL 11/20/2023 3:06 PM CDT [facility] HDL CHOLESTEROL 33(L) >40 mg/dL 3:06 PM CDT [facility] CHOL/HDL RATIO 3.18 <=4.00 11/20/2023 3:06 PM CDT [facility] LDL CHOLESTEROL 51 <=130 mg/dL 11/20/2023 3:06 PM CDT [facility] PATIENT STATUS NON-FASTI NG 11/20/2023 3:06 PM CDT [facility] Blood BLOOD SPECIMEN / Unknown Venipuncture / Unknown 11/20/2023 1:57 PM CDT 11/20/2023 2:09 PM CDT us Shana Lozano DO CHEMISTRY Final Result [facility] [address] [place] [address], [place] [phone] * CT CHEST SCREENING LOW DOSE WO [...] DOSE LUNG CANCER SCREENING CT CHEST LOCATION: [facility] DATE: 08/07/2023 INDICATION: Lung cancer screening. History [...] DOSE LUNG CANCER SCREENING CT CHEST LOCATION: [facility] DATE: 08/07/2023 INDICATION: Lung cancer screening. History [...] ve Non-React lisa 06/11/2022 4:14 PM CDT [facility] Comment:Antibodies to HCV no t detected; does not exclude the possibility of exposure to HCV. Blood BLOOD SPECIMEN / Unknown Venipuncture / Unknown 06/11/2022 2:16 PM CDT 06/11/2022 2:17 PM CDT Shananicolas Lozano DO SEND OUTS Final Result Performing Organization Address [facility] Co de Phone Number [place] [address] [place] [address], [place] [phone] * HM COLONOSCOPY (08/14/2011) COLONOSCOPY Done [facility] 08/14/2011 Doctor Unknown HEALTH MAINT RESULTS Final Resul t Performing Organization Address [facility] Co de Phone Number [facility] [address] [place] [address], [place] [phone] from Last 3 Months or Most Recently Relevant to Health Maintenance Insurance [facility] DUAL COMPLETE MEDICARE PART A HB ONLY [facility] MR APT [id number] [id number] [facility] PPS Advance Directives Documents on File Type Date Recorded 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
[2024-05-16] MEDS: POTASSIUM CHLORIDE 10 MEQ/100 ML PIGGYBACK 100 MEQ IVPB (17:00)
--- NOTE | 2024-05-16 19:05 | P.IMHP_ITS ---
Hospitalist- H&P: HPI History of Present Illness Date Seen: 05/16/24 Chief complaint: Dizzyness Narrative: Casey Bull is a 73 year old man presents to the emergency department with less than 24 hour history of nausea, dry heaves, unable to keep anything down. Denies fevers, rigors, diaphoresis. Abdominal discomfort when having dry heaves. No hematemesis or blood loss of any sort. Anticoagulated on warfarin with INR goal of 2-3 for underlying atrial fibrillation. Denies constipation or diarrhea. Denies dysuria, urgency, frequency, hematuria. Denies cellulitis or any other skin infection. Lives with daughter and grandson. No one in the home is ill. Patient does see medical personnel for his underlying chronic medical conditions and he is not sure if he was exposed to any illness in the course of his various medical encounters. No significant changes in medication regimen recently. Chronic heart failure with reduced ejection fraction. Stage D heart failure, inotrope dependent. Chronic ischemic cardiomyopathy. Recently referred for palliative care encounter. Considering the possibility of hospice. Voices DNR DNI resuscitation status. Review of Systems Status of ROS: Reports: 6 or more systems reviewed and unremarkable except as noted in History and below Narrative: Dry heaves and gagging and nausea worse with any movement, including talking. Does not really vomit per se. Does produce copious amounts of thick, translucent yellow sputum. After he clears his throat of this he has a remission of his gagging symptoms. Denies upper respiratory tract infection symptoms or lower respiratory tract infection symptoms. History of smoking. COPD. Denies chest heaviness, pressure, tightness, or pain. Denies syncope or near- syncope. Acknowledges a sense of orthostasis. Very little oral intake over the last 24 hours due to his symptoms. [facility] Medical History (Updated 05/16/24 @ 19:27 by Segundo Steen MD) Gout ?M10.9 - Gout, unspecified (ICD-10) Hyperlipidemia ?E78.5 - Hyperlipidemia, unspecified (ICD-10) Severe mitral regurgitation by prior echocardiogram ?I34.0 - Nonrheumatic mitral (valve) insufficiency (ICD-10) Chronic heart failure with reduced ejection fraction (HFrEF, <= 40%) ?I50.22 - Chronic systolic (congestive) heart failure (ICD-10) TIARRA (obstructive sleep apnea) (07/03/17) ?G47.33 - Obstructive sleep apnea (adult) (pediatric) (ICD-10) Unspecified essential hypertension (05/26/13) ?I10 - Essential (primary) hypertension (ICD-10) Pure hypercholesterolemia (12/07/20) ?E78.00 - Pure hypercholesterolemia, unspecified (ICD-10) Pulmonary emphysema (02/12/21) ?J43.9 - Emphysema, unspecified (ICD-10) Lactic acidosis (04/07/24) ?E87.20 - Acidosis, unspecified (ICD-10) Ischemic cardiomyopathy (12/07/20) ?I25.5 - Ischemic cardiomyopathy (ICD-10) Chronic kidney disease, stage 3b (06/19/23) ?N18.32 - Chronic kidney disease, stage 3b (ICD-10) Cardiogenic shock (04/07/24) ?R57.0 - Cardiogenic shock (ICD-10) Atrial fibrillation with rapid ventricular response (04/07/24) ?I48.91 - Unspecified atrial fibrillation (ICD-10) Acute renal failure superimposed on stage 3b chronic kidney disease (04/07/24) ?N17.9 - Acute kidney failure, unspecified (ICD-10) ?N18.32 - Chronic kidney disease, stage 3b (ICD-10) Acute on chronic systolic and diastolic heart failure, NYHA class 3 (04/07/24) ?I50.43 - Acute on chronic combined systolic (congestive) and diastolic (congestive) heart failure (ICD-10) Acute GI bleeding (04/07/24) ?K92.2 - Gastrointestinal hemorrhage, unspecified (ICD-10) Surgical History Status post appendectomy ?Z90.49 - Acquired absence of other specified parts of digestive tract (ICD- 10) Status post lumbar laminectomy ?Z98.890 - Other specified postprocedural states (ICD-10) Status post coronary artery stent placement ?Z95.5 - Presence of coronary angioplasty implant and graft (ICD-10) Family History Mother Breast cancer Father Colon cancer Social History Narrative: . Single. 2 children. Now lives with daughter and grandson. Recently moved from [place], where he was living alone, independently. Retired. Designates daughter, Chan, as medical decision maker if he is not able to speak on his own behalf, . DNR DNI resuscitation status. Follows with [facility]. Considering the possibility of hospice services. Former smoker. Does not drink alcohol. What is your current living situation?: I presently have a place to live Problems where you live: no known problems In the past 12 months, utilities in danger of being shut off: no In past 12 months, lack of transportation kept you from medical appts, meetings, work, or getting things needed for daily living: no In the past 12 mos, have been you worried that your food would run out before you had money to buy more?: never true In the past 12 mos, the food you bought just didn't last and you didn't have money to buy more?: never true Smoking Status: Never smoker Do you use any of these nicotine containing products: None Second hand tobacco smoke exposure: No How often do you have a drink containing alcohol: never How often do you have six or more drinks on one occasion: Never AUDIT-C Alcohol total score: 0 Non-prescribed substance use: denies use How often does anyone, including family, friends and others, physically hurt you : never How often does anyone, including family, friends and others, insult or talk down to you: never How often does anyone, including family, friends and others, threaten you with harm: never How often does anyone, including family, friends and others, scream or curse at you: never service: No Meds Home Medications and Allergies Home Medications ?Medication ?Instructions ?Recorded ?Confirmed ?Type albuterol 90 mcg/actuation aerosol 1 - 2 mcg inhalation .every 4-6 05/11/24 05/16/24 History inhaler hrs PRN ondansetron 4 mg disintegrating mg PO DAILY PRN 05/11/24 05/11/24 History tablet dobutamine 250 mg/20 mL (12.5 mg 05/16/24 History mg/mL) intravenous solution Allergies Allergy/AdvReac Type Severity Reaction Status Date / Time codeine Allergy Severe dizzniness/ Verified 05/16/24 15:01 nausea Exam Narrative: Exam Narrative: I assess the patient in the emergency department. He is very hard of hearing. Vision appears adequate. Able to converse if I speak directly in front of him any realizes I am trying to speak with him. Appears ill. Appears comfortable when laying still with eyes closed and head of bed elevated at 30?. When he engages in conversation with me, opens his eyes, moves about he starts to have his gagging episodes. Produces copious amounts of thick, translucent, yellow sputum, after which his gagging resolves. External auditory canals are clear. Very hard of hearing. Midline nasal septum. Dry buccal mucosa. Dentition fair repair. No icterus. Conjugate gaze. Neck is full. Midline trachea. No head neck lymphadenopathy. Hepatojugular reflux. Lungs fairly clear to auscultation. No wheezing, rhonchi, rales. Chest wall excursions are full. No CVA tenderness. Heart tones with regular rhythm, normal S1-S2. PMI is not laterally displaced. Abdomen with active bowel sounds, soft, nontender. No rebound. No guarding. Extremities with trace edema up to the knees bilaterally which he states is not new. No focal motor neurologic deficits. Skin is intact. Const: Vital Signs, click to edit/add: Vital Signs - 24 hr 05/16/24 14:57 05/16/24 15:58 05/16/24 17:59 Temperature 97 F L 98.0 F Pulse Rate [Right Pulse Oximeter] 70 65 64 Respiratory Rate 18 16 16 Blood Pressure [Le ft Upper Arm] 119/85 117/82 124/80 Pulse Oximetry 100 98 98 Oxygen Delivery Me thod Room Air Room Air Room Air Hospitalist - H&P: Result Labs Labs: Short CBC 05/16/24 Range/Units 15:33 WBC 8.82 (4.50-11.00) K/uL Hgb 11.4 L (13.5-17.5) gm/dL Hct 36.5 L (37.0-53.0) % Plt Count 206 (140-440) K/uL BMP 05/16/24 15:33 Sodium 136 Potassium 2.9 L* Chloride 100 Carbon Dioxide 20 BUN 35 H Creatinine 2.2 H Glucose 150 H Calcium 8.6 Cardiac Enzymes 05/16/24 Range/Units 15:33 Troponin I 0.04 (0.01-0.04) ng/mL Liver Function 05/16/24 Range/Units 15:33 Total Bilirubin 1.9 H (0.1-1.5) mg/dL AST 16 (12-35) U/L ALT 15 (4-50) U/L Alkaline Phosphatase 110 (40-150) U/L Albumin 4.0 (3.3-5.0) g/dL Imaging CT scan of abdomen and pelvis: Attestation: I have reviewed the pertinent imaging results. Radiologist's impression: IMPRESSION: 1. No acute findings in the abdomen or pelvis. 2. Tiny effusions bilaterally interlobular septal thickening which can be seen with pulmonary edema Chest x-ray: Attestation: I have reviewed the pertinent imaging results. Radiologist's impression: No acute changes. Chronic cardiomegaly with prominent interstitial markings. Assessment and Plan Assessment and plan (1) Nausea and vomiting: Problem comment: - antiemetics PRN - continue with PPI use Status: Acute (2) Dehydration: Problem comment: - careful IVF hydration Status: Acute (3) Lactic acidosis: Problem comment: - treat acute and chronic conditions and monitor Status: Acute (4) Cough productive of yellow sputum: Problem comment: - appears to trigger gagging and dry heaves - schedule DUO nebs - start guaifenesin - Aerobika device to help clear sputum Status: Acute (5) Chronic heart failure with reduced ejection fraction (HFrEF, <= 40%): Problem comment: - EF <20% - Stage D FHF, inotrope dependent Status: Acute (6) Ischemic cardiomyopathy: Status: Acute (7) Coronary atherosclerosis of [place] coronary artery: Problem comment: - chronic dobutamine IV infusion 2 mcg/kg/min - not currently on scheduled loop diuretic - torsemide 20 mg as needed for weight gain - midodrine 2.5 mg po tid - deemed to not be a candidate for LVAD - due to cognitive issues and lack of social support - palliative care following. Account Retention Representative supports ongoing talks for home hospice as outpatient. Status: Acute (8) Severe mitral regurgitation by prior echocardiogram: Status: Acute (9) Unspecified essential hypertension: Status: Acute (10) Pulmonary emphysema: Status: Acute (11) COPD (chronic obstructive pulmonary disease): Status: Acute (12) Chronic kidney disease, stage 3b: Status: Acute (13) History of tobacco use: Problem comment: Quit age 68 Status: Acute (14) Diabetes type 2: Status: Acute (15) History of atrial fibrillation: Status: Acute (16) FDC (current) use of anticoagulants: Status: Acute (17) TIARRA on CPAP: Status: Acute (18) ASCVD (arteriosclerotic cardiovascular disease): Problem comment: Status post PA and stents [id number] Status: Acute Plan 1. Reviewed impression and recommendations with patient and grand-son, and answered their questions to their satisfaction 2. Continue with supportive efforts 3. They are agreeable to above stated plans and recommendations Total Time Spent Total Time Spent: 75 minutes
[2024-05-16] MEDS: IPRAT-ALBUT 0.5-2.5 MG/3 ML NEB 1 NEB IH ×2 (19:52→23:17)
[2024-05-16] MEDS: ATORVASTATIN CALCIUM 40 MG TABLET PO (20:59)
[2024-05-16] MEDS: guaiFENesin 600 MG TAB.ER.12H 1200 MG PO (21:00)
[2024-05-16] MEDS: SODIUM CHLORIDE 0.9 % (FLUSH) 10 ML SYRINGE 5 ML IVF (21:00)
[2024-05-16] MEDS: OMEPRAZOLE 20 MG CAPSULE DR PO (21:01)
[2024-05-16] MEDS: MIDODRINE HCL 5 MG TABLET 2.5 MG PO (21:15)
[2024-05-17] VITALS (7 sets, daily range): BP systolic 103–111; BP diastolic 77–81; PULSE 61–80; RESP 16–18; TEMP 36.3–36.8; O2SAT 95–98
[2024-05-17] MEDS: ONDANSETRON 2 MG/ML inj 4 MG IVP ×3 (01:14→10:03)
[2024-05-17 02:25] LABS: Appearance Urine Clear (Clear); Bilirubin Urine 1+ (Negative); Blood Urine Negative (Negative); Color Urine Yellow (Yellow); Glucose Urine Negative (Negative); Ketones Urine Negative (Negative); Leukocyte Esterase Urine Negative (Negative); Nitrite Urine Negative (Negative); Protein Urine 2+ (Negative); Specific Gravity Urine 1.025 (1.000-1.030); Urobilinogen Urine 0.2 (0.2-1.0); pH Urine 5.5 (5.0-8.5)
[2024-05-17 02:41] LABS: RBC Urine 0-2 (0-2)
[2024-05-17 02:42] LABS: Bacteria Urine Few; Hyaline Casts Urine Few (None-Few); Mucus Urine Few; Squamous Epithelial Cell Urine Few (None-Few)
[2024-05-17] MEDS: LORazepam 0.5 MG TABLET PO ×2 (02:59→23:10)
[2024-05-17 06:28] LABS: Lactate* 2.1 mmol/L (0.5-1.9)
[2024-05-17 06:29] LABS: Hematocrit 36.2 % (37.0-53.0); Hemoglobin* 11.3 gm/dL (13.5-17.5); Mean Corpuscular HGB Conc 31 gm/dL (32-36); Mean Corpuscular Hemoglobin 27 pg (26-34); Mean Corpuscular Volume 88 fL (80-100); Platelet Count* 188 K/uL (140-440); Red Blood Count 4.12 m/uL (4.30-5.90); White Blood Count* 7.15 K/uL (4.50-11.00)
[2024-05-17 06:31] LABS: Slide Review Reflex No
--- NOTE | 2024-05-17 06:32 | PC.NURSE ---
End of shift note [id number]: Pt A&Ox4 and GULKANA at baseline. Tele in place: first degree HB and BBB noted. Pt also noted to be A-paced. PRN Zofran and Lorazepam administered to treat pt?s dry heaves and nausea noted since admission. Bed alarm on and call light within reach. Pt has been refusing gripper socks when approached. Two skin tears noted to L hand and forearm with areas covered by Tegaderm dressings. Pt would not allow for pillow to be placed on side to offload despite encouragement though pt was agreeable to staff assisting him with repositioning at times. Pt repositioned in bed as tolerated as pt?s nausea is exacerbated by position changes. He did allow staff to float heels. PICC in place to RUE with continuous Dobutamine drip running per home routine. Daughter reports she will be bringing further cartridges of medication in today but that current cartridge will last until 1300 today. Oxygen administered at 1 LPM via NC in order to maintain O2 sats greater than 88% per order. Pt has hx of TIARRA though home CPAP not available. Daughter reports she will bring home CPAP in today. ?
[2024-05-17 06:46] LABS: Chloride* 100 mmol/L (96-114); Potassium* 3.4 mmol/L (3.6-5.1); Sodium* 134 mmol/L (135-149)
[2024-05-17 06:49] LABS: Anion Gap 12 mEq/L (7-15); Blood Urea Nitrogen* 38 mg/dL (7-30); Calcium* 8.5 mg/dL (8.4-10.6); Carbon Dioxide* 22 mmol/L (20-32); Estimated Glomerular Filt Rate 35 ml/min; Glucose* 135 mg/dL (60-115); Phosphorus* 4.3 mg/dL (2.5-4.5)
[2024-05-17 06:50] LABS: Magnesium* 2.3 mg/dL (1.5-2.6)
[2024-05-17 07:02] LABS: Troponin I* 0.04 ng/mL (0.01-0.04)
[2024-05-17 07:07] LABS: INR 2.11 (0.91-1.10); Prothrombin Time 24.7 Seconds
[2024-05-17] MEDS: IPRAT-ALBUT 0.5-2.5 MG/3 ML NEB 1 NEB IH ×5 (08:18→23:10)
[2024-05-17] MEDS: OMEPRAZOLE 20 MG CAPSULE DR PO (09:10)
[2024-05-17] MEDS: AMIODARONE 200 MG TABLET PO (09:10)
[2024-05-17] MEDS: MIDODRINE HCL 5 MG TABLET 2.5 MG PO ×3 (09:10→20:40)
[2024-05-17] MEDS: guaiFENesin 600 MG TAB.ER.12H 1200 MG PO ×2 (09:10→20:40)
[2024-05-17] MEDS: MAGNESIUM OXIDE 400 MG TABLET PO (09:10)
--- NOTE | 2024-05-17 09:10 | P.IMPN_ITS ---
Progress Note: A&P Assessment and plan (1) Nausea and vomiting: Problem details: - antiemetics PRN - continue with PPI use - viral AGE suspected - no new edema/hypoxia ... Status: Acute (2) Dehydration: Problem details: - careful IVF hydration given poor pump Status: Acute (3) Lactic acidosis: Problem details: trend Status: Acute (4) Cough productive of yellow sputum: Problem details: -portable CXR reassuring; no new oxygen requirement, no increased work of breathing. - appears to trigger gagging and dry heaves - schedule DUO nebs - start guaifenesin - Aerobika device to help clear sputum - not currently on antibiotics Status: Acute (5) Chronic heart failure with reduced ejection fraction (HFrEF, <= 40%): Problem details: - EF <20% - Stage D FHF, inotrope dependent - dobutamine at 2mcg/kg/min home infusion - patient may use his home equipment and medication per outpatient cardiology clinic - if infusion pump fails - transition to norepinephrine via his PICC line until family arrives; likely will need comfort measures at that time. Status: Acute (6) Refractory end stage heart failure: Problem details: -hospice discussion and timing ongoing Status: Acute (7) Coronary atherosclerosis of [place] coronary artery: Problem details: - ischemic cardiomyopathy - chronic dobutamine IV infusion 2 mcg/kg/min - not currently on scheduled loop diuretic - torsemide 20 mg as needed for weight gain - midodrine 2.5 mg po tid - deemed to not be a candidate for LVAD - due to cognitive issues and lack of social support - palliative care following. Walking Dragline Operator supports ongoing talks for home hospice as outpatient. Status: Deleted (8) Severe mitral regurgitation by prior echocardiogram: Status: Acute (9) COPD (chronic obstructive pulmonary disease): Status: Acute (10) Chronic kidney disease, stage 3b: Status: Acute (11) Diabetes type 2: Status: Acute (12) History of atrial fibrillation: Status: Inactive (13) detention (current) use of anticoagulants: Problem details: hx of afib Status: Acute (14) TIARRA on CPAP: Status: Acute Subjective Date Seen: 05/17/24 Interval history: Daily Progress Note - Hospital Medicine #: 2 CC: Nausea, weakness, dry heaves in the setting of ischemic cardiomyopathy, ejection fraction 20% 24 HOUR UPDATE: terrible, give me a new stomach Xavi is alert and interactive; he tells me his nausea and dry heaves continued after admission. No diarrhea. Crampy abdominal discomfort. No new dyspnea. No new chest pain, palpitations. Notable Labs, Micro, Rads, Interventions: Objective: alert; [place]; used the pocket talker. NAD. Vitals: see above Lungs: Clear. Cardiac: holosystolic murm Abdomen: obese; distant bowel sounds. Disposition/Potential discharge - Today I spent 50minutes seeing the patient, reviewing Expanse and EPIC notes/diagnostics, discussing the care plan with our care time that includes social work, PT/OT, pharmacy, RT, detention and documenting my impressions and plan in the medical record. Exam Const: Vital Signs, click to edit/add: Vital Signs - 24 hr 05/16/24 14:57 05/16/24 15:58 05/16/24 17:59 Temperature 97 F L 98.0 F Pulse Rate Pulse Rate [Pulse Oximeter] Pulse Rate [Right Pulse Oximeter] 70 65 64 Respiratory Rate 18 16 16 Blood Pressure [Le ft Arm] Blood Pressure [Le ft Upper Arm] 119/85 117/82 124/80 Pulse Oximetry 100 98 98 Oxygen Delivery Me thod Room Air Room Air Room Air Oxygen Flow Rate 05/16/24 18:47 05/16/24 19:45 05/16/24 20:45 Temperature 96.9 F L Pulse Rate Pulse Rate [Pulse Oximeter] 62 60 Pulse Rate [Right Pulse Oximeter] Respiratory Rate 18 18 Blood Pressure [Le ft Arm] 117/86 111/79 Blood Pressure [Le ft Upper Arm] Pulse Oximetry 96 96 86 L Oxygen Delivery Me thod Room Air Room Air Room Air Oxygen Flow Rate 05/16/24 20:48 05/16/24 20:49 05/16/24 20:50 Temperature Pulse Rate 61 Pulse Rate [Pulse Oximeter] Pulse Rate [Right Pulse Oximeter] Respiratory Rate Blood Pressure [Le ft Arm] Blood Pressure [Le ft Upper Arm] Pulse Oximetry 98 98 Oxygen Delivery Me thod Nasal Cannula Nasal Cannula Oxygen Flow Rate 1 1 05/16/24 22:39 05/16/24 22:53 05/16/24 23:00 Temperature Pulse Rate 60 Pulse Rate [Pulse Oximeter] 64 Pulse Rate [Right Pulse Oximeter] Respiratory Rate 18 18 Blood Pressure [Le ft Arm] Blood Pressure [Le ft Upper Arm] Pulse Oximetry 97 Oxygen Delivery Me thod Nasal Cannula Oxygen Flow Rate 1 05/16/24 23:19 05/17/24 03:00 05/17/24 07:00 Temperature 97.1 F L 97.3 F L Pulse Rate 67 Pulse Rate [Pulse Oximeter] 64 70 Pulse Rate [Right Pulse Oximeter] Respiratory Rate 18 18 Blood Pressure [Le ft Arm] 110/78 111/79 Blood Pressure [Le ft Upper Arm] Pulse Oximetry 99 98 Oxygen Delivery Me thod Nasal Cannula Nasal Cannula Oxygen Flow Rate 1 1 05/17/24 07:00 05/17/24 07:00 Temperature 98 F Pulse Rate Pulse Rate [Pulse Oximeter] 70 Pulse Rate [Right Pulse Oximeter] Respiratory Rate 18 18 Blood Pressure [Le ft Arm] 106/81 Blood Pressure [Le ft Upper Arm] Pulse Oximetry 97 97 Oxygen Delivery Me thod Room Air Room Air Oxygen Flow Rate Labs Labs: Laboratory Results - last 24 hr 05/16/24 05/16/24 05/17/24 15:30 15:33 02:14 WBC 8.82 RBC 4.17 L Hgb 11.4 L Hct 36.5 L MCV 88 MCH 27 MCHC 31 L RDW Coeff of Dia 19.6 H Plt Count 206 Neut % (Auto) 83.5 H Lymph % (Auto) 6.8 L [place] % (Auto) 7.4 Eos % (Auto) 1.4 Baso % (Auto) 0.2 Neut # (Auto) 7.40 H Lymph # (Auto) 0.60 L [place] # (Auto) 0.70 Eos # (Auto) 0.12 Baso # (Auto) 0.02 Abs Immat Gran (auto) 0.06 Imm/Tot Granulo (auto) 0.7 INR 1.89 H Sodium 136 Potassium 2.9 L* Chloride 100 Carbon Dioxide 20 Anion Gap 16 H BUN 35 H Creatinine 2.2 H Estimated Creat Clear 29.36 Estimated GFR 31 Glucose 150 H Lactate 3.2 H Calcium 8.6 Phosphorus Magnesium Total Bilirubin 1.9 H AST 16 ALT 15 Alkaline Phosphatase 110 Troponin I 0.04 Total Protein 6.5 Albumin 4.0 Lipase 53 TSH Urine Color Yellow Urine Appearance Clear Urine pH 5.5 Ur Specific [place] 1.025 Urine Protein 2+ A Urine Glucose (UA) Negative Urine Ketones Negative Urine Blood Negative Urine Nitrite Negative Urine Bilirubin 1+ A Urine Urobilinogen 0.2 Ur Leukocyte Esterase Negative Urine RBC 0-2 Urine WBC 2-5 Ur Squamous Epith Cells Few Urine Bacteria Few A Hyaline Casts Few Urine Mucus Few A SARS-CoV-2 (PCR) Negative SARS-CoV-2 Influenza Type A (PCR) Negative PCR FLU A Influenza Type B (PCR) Negative PCR FLU B RSV (PCR) Negative PCR RSV 05/17/24 06:13 WBC 7.15 RBC 4.12 L Hgb 11.3 L Hct 36.2 L MCV 88 MCH 27 MCHC 31 L RDW Coeff of Dia Plt Count 188 Neut % (Auto) Lymph % (Auto) [place] % (Auto) Eos % (Auto) Baso % (Auto) Neut # (Auto) Lymph # (Auto) [place] # (Auto) Eos # (Auto) Baso # (Auto) Abs Immat Gran (auto) Imm/Tot Granulo (auto) INR 2.11 H Sodium 134 L Potassium 3.4 L Chloride 100 Carbon Dioxide 22 Anion Gap 12 BUN 38 H Creatinine 2.0 H Estimated Creat Clear 32.30 Estimated GFR 35 Glucose 135 H Lactate 2.1 H Calcium 8.5 Phosphorus 4.3 Magnesium 2.3 Total Bilirubin AST ALT Alkaline Phosphatase Troponin I 0.04 Total Protein Albumin Lipase TSH 9.150 H Urine Color Urine Appearance Urine pH Ur Specific [place] Urine Protein Urine Glucose (UA) Urine Ketones Urine Blood Urine Nitrite Urine Bilirubin Urine Urobilinogen Ur Leukocyte Esterase Urine RBC Urine WBC Ur Squamous Epith Cells Urine Bacteria Hyaline Casts Urine Mucus SARS-CoV-2 (PCR) Influenza Type A (PCR) Influenza Type B (PCR) RSV (PCR)
[2024-05-17] MEDS: SODIUM CHLORIDE 0.9 % (FLUSH) 10 ML SYRINGE 5 ML IVF ×2 (09:11→20:41)
[2024-05-17] MEDS: ACETAMINOPHEN 325 MG TABLET 650 MG PO ×2 (10:03→21:12)
--- NOTE | 2024-05-17 13:21 | RESP.RT ---
Pt seen, he was resting. RR 18, appeared labored. Pt. reports that his breathing is more difficult. SPO2 98% on RA. BBS clear. After assessment his RR was 16 and regular, not as much effort. His home CPAP is not here. Pt reports he does not know if anyone is bringing it into the hospital. Would be beneficial for him, to wear when he naps and rests during the day, as well as at HS. receiving nebs and using aerobika. Reports that he is not coughing out sputum like he was before. Continue to moniter.
[2024-05-17] MEDS: WARFARIN 2 MG TABLET 1 MG PO (17:05)
--- NOTE | 2024-05-17 19:46 | PC.NURSE ---
End of shift [id number]: Pt AxOx4, pleasant, and cooperative with cares. [place] at baseline, headset at bedside. Pt advanced to regular diet during shift, tolerating well. Gradually increasing food intake. Pt PO fluid intake adequate. Continent of the bladder. Administrative Director attempted walking Pt to chair during breakfast and Pt reported feeling dizzy and nauseated. Pt tolerated eating meal at the edge of the bed well. Therapies worked with Pt in the afternoon. Pt tolerated chair and denied nausea. Pt reported nausea improving. Pts daughter brought in home med and restarted the continuous drip. Administrative Director assessed rate. Dry intermittent cough present. Pt appears resting in bed with call light in reach.
[2024-05-17] MEDS: SENNOSIDES 1 TAB TABLET PO (20:40)
[2024-05-17] MEDS: ATORVASTATIN CALCIUM 40 MG TABLET PO (20:40)
[2024-05-17] MEDS: PRAMIPEXOLE 0.125 MG TABLET PO (20:40)
[2024-05-17] MEDS: OMEPRAZOLE 20 MG CAPSULE DR 40 MG PO (20:42)
[2024-05-18 03:00] VITALS: BP 104/78; PULSE 68; RESP 18; O2SAT 97
--- NOTE | 2024-05-18 06:22 | PC.NURSE ---
End of shift report [id number]: Pleasant and cooperative with cares. Nausea reported x 1, well managed with current regimen. Patient did report a headache this shift, pain was relieved with PRN tylenol. ELEM, utilized pocket talker PRN to assist with education and conversation with patient. Dobutamine pump active, pump connected to PICC line in right upper arm, verified dose and rate with MAR and accurate. Patient preferred to stay in bed this shift. Denies any shortness of breath, intermittent productive cough. Patient utilizing aerobika with encouragement and reminders from staff.
[2024-05-18] MEDS: IPRAT-ALBUT 0.5-2.5 MG/3 ML NEB 1 NEB IH ×2 (06:43→12:20)
[2024-05-18 07:00] VITALS: BP 109/88; PULSE 60; PULSE 65; RESP 16; O2SAT 98
[2024-05-18 07:13] LABS: HCO3 VBG 24 mmol/L (21-28); Hematocrit 34.6 % (37.0-53.0); Hemoglobin* 10.8 gm/dL (13.5-17.5); Mean Corpuscular HGB Conc 31 gm/dL (32-36); Mean Corpuscular Hemoglobin 28 pg (26-34); Mean Corpuscular Volume 88 fL (80-100); PCO2 VBG 35 mmHG (40-50); Platelet Count* 196 K/uL (140-440); Red Blood Count 3.93 m/uL (4.30-5.90); White Blood Count* 7.84 K/uL (4.50-11.00); pH VBG 7.455 (7.32-7.43)
[2024-05-18 07:18] LABS: Slide Review Reflex No
[2024-05-18 07:40] LABS: INR 2.65 (0.91-1.10); Prothrombin Time 29.4 Seconds
[2024-05-18 07:57] LABS: Albumin* 3.7 g/dL (3.3-5.0); Chloride* 98 mmol/L (96-114)
[2024-05-18 07:58] LABS: Potassium* 3.6 mmol/L (3.6-5.1); Sodium* 131 mmol/L (135-149)
[2024-05-18 08:00] LABS: Blood Urea Nitrogen* 43 mg/dL (7-30); Creatinine* 2.3 mg/dL (0.5-1.5); Est. Creatinine Clearance* 28.09; Estimated Glomerular Filt Rate 29 ml/min
[2024-05-18 08:01] LABS: Alanine Aminotransferase* 14 U/L (4-50); Alkaline Phosphatase* 102 U/L (40-150); Anion Gap 13 mEq/L (7-15); Aspartate Amino Transferase* 18 U/L (12-35); Bilirubin Total* 1.5 mg/dL (0.1-1.5); Calcium* 8.4 mg/dL (8.4-10.6); Carbon Dioxide* 20 mmol/L (20-32); Glucose* 134 mg/dL (60-115); Magnesium* 2.2 mg/dL (1.5-2.6)
[2024-05-18 08:06] LABS: C Reactive Protein* < 0.5 mg/dL (0.5-1.0)
[2024-05-18] MEDS: SENNOSIDES 1 TAB TABLET PO (08:36)
[2024-05-18] MEDS: guaiFENesin 600 MG TAB.ER.12H 1200 MG PO (08:36)
[2024-05-18] MEDS: OMEPRAZOLE 20 MG CAPSULE DR 40 MG PO (08:37)
[2024-05-18] MEDS: MAGNESIUM OXIDE 400 MG TABLET PO (08:37)
[2024-05-18] MEDS: MIDODRINE HCL 5 MG TABLET 2.5 MG PO ×2 (08:37→14:00)
[2024-05-18] MEDS: AMIODARONE 200 MG TABLET PO (08:37)
[2024-05-18] MEDS: SODIUM CHLORIDE 0.9 % (FLUSH) 10 ML SYRINGE 5 ML IVF (08:38)
[2024-05-18] MEDS: ALBUTEROL SULFATE 2.5 MG/3 ML VIAL.NEB NEB (08:46)
[2024-05-18] MEDS: ACETAMINOPHEN 325 MG TABLET 650 MG PO ×2 (10:07→14:07)
[2024-05-18 11:00] VITALS: BP 105/78; PULSE 108; RESP 18; O2SAT 94
--- NOTE | 2024-05-18 11:11 | RESP.RT ---
Patient lying HOB up, appears comfortable, RR 20/minute, on room air SaO2 94%, breathing regular/easy. BBS clear, very fine crackles noted, good air movement. Patient used Home CPAP last night with out issue. Discussed patient use of Home CPAP with him. Machine is an older Air Sense 10, clean and functioning as it should.
--- NOTE | 2024-05-18 14:12 | P.DS_ITS ---
DS: Providers Provider Date Seen: 05/18/24 Date of admission: 05/16/24 18:32 Primary care physician: Sadi Paul MD Admitting Clinician: Segundo Steen MD Consults: 05/16/24 18:46 Consult to Respiratory Therapy [CONS] Routine Comment: Reason(s) for RT Consult:: Consult Comment: aerobika use 05/17/24 10:41 Consult to Occupational Therapy [CONS] Routine Comment: Reason(s) for OT Consult:: Evaluate and Treat Any Restrictions?:: No Restrictions Consult to Physical Therapy [CONS] Routine Comment: Reason(s) for PT Consult:: Evaluate and Treat Any Restrictions?:: No Restrictions Attending Physician on discharge: [facility]: Diagnosis Discharge Diagnosis (1) Nausea and vomiting: Status: Acute Problem details: -improved; likely norovirus or other self-limited viral etiology (2) Cough productive of yellow sputum: Status: Acute Problem details: -resolved; did not receive antibiotics. (3) Lactic acidosis: Status: Acute Problem details: resolved (4) Dehydration: Status: Acute Problem details: - careful IVF hydration given poor cardiac function. (5) Chronic heart failure with reduced ejection fraction (HFrEF, <= 40%): Status: Acute Problem details: - EF <20% - Stage D FHF, inotrope dependent - dobutamine at 2mcg/kg/min home infusion - hospice appropriate; home consultation arranged for 05/19/24 (6) Refractory end stage heart failure: Status: Acute Problem details: -hospice discussion and timing ongoing (7) Severe mitral regurgitation by prior echocardiogram: Status: Acute (8) ASCVD (arteriosclerotic cardiovascular disease): Status: Acute Problem details: Status post MN and stents 2022 - chronic dobutamine IV infusion 2 mcg/kg/min - not currently on scheduled loop diuretic - torsemide 20 mg as needed for weight gain - midodrine 2.5 mg po tid - deemed to not be a candidate for LVAD - due to cognitive issues and lack of social support - palliative care following. Circuit Rider supports ongoing talks for home hospice as outpatient. (9) Chronic kidney disease, stage 3b: Status: Acute (10) intermediate (current) use of anticoagulants: Status: Acute Problem details: hx of afib (11) Diabetes type 2: Status: Acute (12) COPD (chronic obstructive pulmonary disease): Status: Acute (13) TIARRA on CPAP: Status: Acute DS: Summary Hospital Course Hospital Course: FINAL DIAGNOSIS/FOLLOW UP ISSUES: Brief episode of nausea vomiting: This was associated with weakness. At a baseline the patient is in very poor health with refractory end-stage heart failure. He was admitted for observation and IV fluids. He improved over 48 hours and was discharged home. No changes in medications or diagnosis concerning his cardiac function. BRIEF HOSPITAL COURSE: Patient was admitted for 2 days. Synopsis of acute inpatient issues are outlined above. Chronic medical conditions with notable findings outlined above. His lactic acidosis resolved. His symptoms resolved. His appetite was returning to normal. He continues to be weak but had improved. In discussion with his daughter and the patient they both felt safe returning home. Their plan is to consult with home hospice tomorrow, 05/19/2024. DISCHARGE MEDICATIONS: See Reconciled list - SIGNIFICANT CHANGES: No changes Specific instructions to the patient and follow-up are outlined below. REVIEW OF SYSTEMS No new chest pain or dyspnea Pain controlled No voiding difficulties Tolerating diet challenge PHYSICAL EXAM: CONSTITUTIONAL: [place]. Alert. Baseline dyspnea and poor mobility unchanged. GENERAL: Well-developed and above ideal body weight, in no respiratory distress. VITAL SIGNS: see record. HEENT: Sclerae are anicteric. No petechiae. CARDIAC: Holosystolic 4/6 ejection fraction. Only trace edema noted in his bilateral lower extremities. PULM: good air entry with no wheeze. ABD: Soft, obese. NEURO: Speech is fluent. A brief neurologic exam is negative. SKIN: No rashes, petechiae, concerning changes PSYCHIATRIC: Euthymic. DISPOSITION: Home with family Time spent on discharge 37 minutes. Status at Discharge Functional status at discharge: wheelchair bound Overall status at discharge: patient is not back to baseline Time Spent with Patient Time attestation: Total time spent providing and/or coordinating discharge services: Time spent: Greater than 30 minutes Exam Const: Vital Signs, click to edit/add: Vital Signs - 24 hr 05/17/24 15:00 05/17/24 15:00 05/17/24 15:00 Temperature Pulse Rate 70 Pulse Rate [Apical ] Pulse Rate [Pulse Oximeter] 72 Respiratory Rate 16 16 Blood Pressure [Le ft Arm] 105/78 Pulse Oximetry 95 95 Oxygen Delivery Me thod Room Air Room Air 05/17/24 19:00 05/17/24 22:51 05/17/24 23:00 Temperature 98.3 F Pulse Rate 61 Pulse Rate [Apical ] 80 Pulse Rate [Pulse Oximeter] 72 Respiratory Rate 16 18 Blood Pressure [Le ft Arm] 103/77 Pulse Oximetry 96 Oxygen Delivery Me thod Room Air 05/17/24 23:00 05/17/24 23:00 05/18/24 03:00 Temperature 98.3 F Pulse Rate Pulse Rate [Apical ] Pulse Rate [Pulse Oximeter] 73 68 Respiratory Rate 18 18 18 Blood Pressure [Le ft Arm] 104/80 104/78 Pulse Oximetry 97 97 97 Oxygen Delivery Me thod CPAP CPAP CPAP 05/18/24 07:00 05/18/24 07:00 05/18/24 07:00 Temperature Pulse Rate Pulse Rate [Apical ] 60 60 Pulse Rate [Pulse Oximeter] Respiratory Rate 16 16 Blood Pressure [Le ft Arm] 109/88 Pulse Oximetry 98 98 Oxygen Delivery Me thod CPAP CPAP 05/18/24 07:00 05/18/24 11:00 Temperature Pulse Rate 65 Pulse Rate [Apical ] 108 H Pulse Rate [Pulse Oximeter] Respiratory Rate 18 Blood Pressure [Le ft Arm] 105/78 Pulse Oximetry 94 Oxygen Delivery Me thod Room Air DS: Data Data Completed and Pending Labs on day of discharge: Labs from last 24 hours 05/18/24 06:20 WBC 7.84 RBC 3.93 L Hgb 10.8 L Hct 34.6 L MCV 88 MCH 28 MCHC 31 L Plt Count 196 INR 2.65 H VBG pH 7.455 H VBG pCO2 35 L VBG pO2 86.0 H VBG HCO3 24 Sodium 131 L Potassium 3.6 Chloride 98 Carbon Dioxide 20 Anion Gap 13 BUN 43 H Creatinine 2.3 H Estimated Creat Clear 28.09 Estimated GFR 29 Glucose 134 H Calcium 8.4 Magnesium 2.2 Total Bilirubin 1.5 AST 18 ALT 14 Alkaline Phosphatase 102 C-Reactive Protein < 0.5 L Total Protein 6.0 Albumin 3.7 Preliminary micro results at discharge 05/17/24 02:14 Urine Culture - Preliminary Urine,Clean Catch < 50,000 COL/ML MIXED GRAM POSITIVE GE ISOLATED NO FURTHER WORKUP Discharge Plan Discharge Disposition: Home w/ Parent or Adult Date of Admission: 05/16/24 18:32 Attending Provider on Discharge: Rowena Payne Primary Care Provider: Sadi Paul Anticipated Discharge Date/Time: 05/18/24 14:09 Discharge Medications: Continued ondansetron 4 mg tablet,disintegrating 4 mg PO Q8H PRN albuterol sulfate 90 mcg/actuation HFA aerosol inhaler 2 puff INHALATION Q6H PRN acetaminophen 500 mg tablet 1,000 mg PO HS Rx Instructions: Take 1,000 mg by mouth once daily in the evening. Max acetaminophen dose: 4000mg in 24 hrs. amiodarone 200 mg tablet 200 mg PO DAILY atorvastatin 40 mg tablet 40 mg PO DAILY warfarin 1 mg tablet 1 mg PO DAILY torsemide 20 mg tablet 20 mg PO DAILY PRN Rx Instructions: Take one tablet by mouth as needed for weight gain of 3 lb in 1 day or 5 lb in 1 week sennosides 8.6 mg tablet 8.6 - 17.2 mg PO BID pramipexole 0.25 mg tablet 0.125 mg PO HS pantoprazole 40 mg tablet,delayed release (DR/EC) 40 mg PO BID midodrine 2.5 mg tablet 2.5 mg PO TID magnesium oxide 250 mg magnesium tablet 250 mg PO DAILY meclizine 25 mg tablet 25 mg PO TID PRN dobutamine 4 mg/mL See Rx Instructions .ROUTE .COMPLEX Rx Instructions: 2 MCG/KG/MIN (79.5 KG), 9.6 MG/HR, 2.4 ML/HR VIA CADD PUMP Discharge Orders: Discharge Order (Routine); Ordered 05/18/24 Ordered By: Rowena Payne Additional Instructions: -Hospice meeting 05/19/24 Activity Level: Activity as Tolerated Discharge Diet: Regular Follow Up Appointments: Sadi Paul MD [Primary Care Provider] - (no specific appt needed; daughter will reach out if needed) Forms: [facility] Info Instructions
--- NOTE | 2024-05-18 14:25 | PC.NURSE ---
End of Shift Note: Patient has been in bed most of the day. Have offered to help him get up the the chair but he declined. He took a few bites of the fruit plate he ordered and did not want to order anything else. Did get him to take some ensure chocolate with ice cream. 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
[2024-05-18 15:00] VITALS: RESP 18; O2SAT 94
--- NOTE | 2024-05-18 17:16 | PC.NURSE ---
IV saline lock removed from left forearm. Skin tear to left hand and forearm cleansed and redressed. Discharge instructions given to patient and daughter. All questions were answered and forms were signed. Pt to front entrance via wheelchair.
== END 2024-05-18 16:40 | disposition home or self-care (01) ==
LOC: ED 18:29 → MEDSURG 18:32
PROVIDERS: Family Medicine; Internal Medicine; Admitting Provider Internal Medicine; Emergency Provider Family Medicine; PCP Family Medicine; Visit Provider Internal Medicine
DX: R11.2 Nausea with vomiting, unspecified (principal); I50.22 Chronic systolic (congestive) heart failure; I50.84 End stage heart failure; R53.1 Weakness; E86.0 Dehydration; I13.0 Hypertensive heart and chronic kidney disease with heart failure and stage 1 through stage 4 chronic kidney disease, or unspecified chronic kidney disease; N18.32 Chronic kidney disease, stage 3b; E11.22 Type 2 diabetes mellitus with diabetic chronic kidney disease; Z87.891 Personal history of nicotine dependence; I34.0 Nonrheumatic mitral (valve) insufficiency; I25.10 Atherosclerotic heart disease of native coronary artery without angina pectoris; Z79.01 Long term (current) use of anticoagulants; J44.9 Chronic obstructive pulmonary disease, unspecified; R42 Dizziness and giddiness; R53.81 Other malaise; R53.83 Other fatigue; R10.9 Unspecified abdominal pain; R05.8 Other specified cough; G47.33 Obstructive sleep apnea (adult) (pediatric); E87.21 Acute metabolic acidosis; Z86.79 Personal history of other diseases of the circulatory system; I25.2 Old myocardial infarction; Z99.3 Dependence on wheelchair; Z99.89 Dependence on other enabling machines and devices
CPT/HCPCS: 36415; 71045; 74176; 80048; 80053; 81001; 81003; 82803; 83605; 83690; 83735; 84100; 84443; 84484; 85025; 85027; 85610; 86140; 87086; 87631; 93005; 94640; 96361; 96365; 96375; 96376; 97161; 97166; 97535; 99283; 99285; A9270; G0378; J1250; J2270; J2405; J3480; J7030

== ENCOUNTER 2024-05-22 13:58 | Emergency (ER) | payer MEDICARE, SELFPAY ==
[2024-05-22] VITALS (13 sets, daily range): BP systolic 103–113; BP diastolic 78–83; PULSE 61–75; RESP 6–19; TEMP 36.2; O2SAT 93–99; BMI 26.6
--- OUTSIDE RECORDS SUMMARY | 2024-05-22 14:01 | XMS_ITS | Clinical Summary ---
Author Organization [employer] [facility] [employer] [facility] Address [address] [place] [address] Care Team Providers Care Maintenance Engineer [employer] Name Role Phone Gautam [place] Ion Jones Unavailable Sadi Paul MD Primary [...] use: Daily Refills: 11. 1 unit 11 019 Active meclizine (ANTIVERT) 25 mg tabletIndications:Benig n paroxysmal positional vertigo, unspecified laterality Take 1 Tablet (25 mg) by mouth 3 times daily if needed for Vertigo. 30 Tablet 1 022 Active acetaminophen (TYLENOL EXTRA STRGTH) 500 mg tabletIndications:Pain Take 1,000 mg by mouth once daily in the evening. Max acetaminophen dose: 4000mg in 24 hrs. 0 022 Active methocarbamoL (ROBAXIN) 500 mg tabletIndications:Nause a and vomiting, unspecified vomiting type,DAVID (acute kidney injury) Take 1 Tablet (500 mg) by mouth every 6 hours if needed for Muscle Spasm PO 1st choice (.). 20 Tablet 02/17/2 024 Active Additional Information Patient not taking.Informant: Patient's Recall, Reported on 05/03/2024 magnesium oxide 250 mg magnesium tabletIndications:Muscl e cramps Take 1 Tablet (250 mg) by mouth once daily. 30 Tablet 11 Active Additional Information Patient not taking.Informant: Patient's Recall, Reported on 05/03/2024 triamcinolone (ARISTOCORT; KENALOG) 0.1 % creamIndications:prurit us of skin Apply 1 Application topically to affected area(s) 3 times daily if needed (itchy rash). Active DOBUTamine (DOBUTREX) 250 mg/250 mL (1 mg/mL) infusionIndications:Acu te on chronic systolic and diastolic heart failure, NYHA class 3 (HC) Inject 159 mcg/min intravenous continuous. 250 mL 025 Active pantoprazole (PROTONIX) 40 mg delayed-release tabletIndications:Acute GI bleeding Take 1 Tablet (40 mg) by mouth two times daily before meals. 90 Tablet 04/21/19 25 2:46 PM HOUSING MANAGEMENT OFFICER 025 Active pramipexole (MIRAPEX) 0.25 mg tabletIndications:Restl ess leg Take one-half Tablet (0.125 mg) by mouth at bedtime. 30 Tablet 04/21/19 25 2:46 PM HOUSING MANAGEMENT OFFICER 025 Active sennosides (SENNA) 8.6 mg tabletIndications:Other constipation Take 1 to 2 Tablets (8.6-17.2 mg) by mouth two times daily. 60 Tablet 04/21/19 25 2:46 PM HOUSING MANAGEMENT OFFICER 025 Active warfarin (COUMADIN) 1 mg tabletIndications:Atria l fibrillation with rapid ventricular response (HC) Take 1 Tablet (1 mg) by mouth once daily. Take 1mg daily. INR check on Sunday 04/23. Further dosing instructions pending INR value at that time. 30 Tablet 04/21/19 25 2:46 PM HOUSING MANAGEMENT OFFICER 025 Active midodrine (PROAMATINE) 2.5 mg tabletIndications:Hypot ension, unspecified hypotension type Take 1 tablet (2.5mg) by mouth three times daily (at 8AM, 12PM, and 4PM) 90 Tablet 04/21/19 25 2:46 PM HOUSING MANAGEMENT OFFICER 025 Active amiodarone (CORDARONE) 200 mg tabletIndications:Atria l fibrillation with rapid ventricular response (HC) Take 1 tablet (200 mg) by mouth twice daily. Then on 05/02/24 decrease to 200 mg once daily 90 Tablet 1 04/21/19 2:46 PM HOUSING MANAGEMENT OFFICER 025 Active torsemide (DEMADEX) 20 mg tabletIndications:Acute on chronic systolic and diastolic heart failure, NYHA class 3 (HC) Take one tablet by mouth as needed for weight gain of 3 lb in 1 day or 5 lb in 1 week 30 Tablet 2 04/21/19 5:30 PM HOUSING MANAGEMENT OFFICER 025 Active atorvastatin (LIPITOR) 40 mg tabletIndications:Pure hypercholesterolemia Take 1 Tablet (40 mg) by mouth once daily. 30 Tablet 3 04/21/19 5:30 PM HOUSING MANAGEMENT OFFICER 025 Active WalkerIndications:CHF (congestive heart failure), NYHA class IV, acute on chronic, combined (HC) Walker with wheels,seat,sanders d brakes,and basket for home use. 1 Each 025 Active commodeIndications:CHF (congestive heart failure), NYHA class IV, acute on chronic, combined (HC) As directed. Commode. For home use. 1 Each 025 Active albuterol HFA (PRO-AIR; VENTOLIN; PROVENTIL) 90 mcg/actuation inhalerIndications:Coug h, unspecified type Inhale 2 Puffs by mouth every 6 hours if needed for Wheezing 1st choice (cough). 34 g 3 025 Active ondansetron (ZOFRAN ODT) 4 mg disintegrating tabletIndications:Nause a Place 1 Tablet (4 mg) on the tongue every 8 hours if needed for Nausea/Vomiting . 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,Cough [The details of the medication are not available because there are pending changes by a home health clinician.] 34 g 3 024 2024 Disconti nued(Reo rder (E-cance l not sent)) allopurinoL (ZYLOPRIM) 100 mg tabletIndications:Gout due to renal impairment, unspecified chronicity, unspecified site [The details of the medication are not available because there are pending changes by a home health clinician.] 60 Tablet 04/21/19 25 5:30 PM HOUSING MANAGEMENT OFFICER 025 2024 Disconti nued(*Al lergic/A dverse Rxn/Side Effects) ondansetron (ZOFRAN ODT) 4 mg disintegrating tabletIndications:Nause a Place 1 Tablet (4 mg) on the tongue every 8 hours if needed for Nausea/Vomiting . 10 Tablet 025 2024 Disconti nued(Reo rder (E-cance l not sent)) Hospital, Clinic, or Other Facility Administered Medication Ordered Dose Route Frequency Start Date End Date Status cyanocobalamin (VITAMIN B12) 1,000 mcg/mL injection 1,000 mcgIndications:B12 deficiency 1000 mcg IM Q 4 WEEKS (28 days) 12/22/2023 11/21/2024 Active Active Problems Problem Noted Date Diagnosed Date Acute renal failure superimp osed on stage [...] and unspecified hyperlipidemia 05/26/2013 Coronary atherosclerosis of afognak coronary arianne ry 05/26/2013 Other B-complex deficiencies 02/11/2013 Regional enteritis of large intestine 10/22/2011 Type II or unspecified type diabetes mellitus without mention of complication, uncontrolled 02/14/2011 Acute on chronic systolic heart failure Resolved Problems Problem Noted Date Diagnosed Date Resolved Date Congestive heart failure, un specified HF chronicity, unspecified heart failure type 04/21/2024 05/21/2024 Cellulitis and abscess of unspecified site 03/13/2013 03/17/2017 Coronary atherosclerosis of unspecified type of vessel, afognak or graft 02/11/2013 03/17/2017 Chest pain, unspecified 01/19/201303/03 Acute bronchitis 06/01/2012 03/17/2017 Acute conjunctivitis, unspecified 05/01/2012 03/17/2017 Other and unspecified noninf ectious gastroenteritis and colitis(558.9) 08/28/201103/17 Leukocytosis, unspecified 02/14/2011 Blood in stool 02/14/2011 03/17/2017 Acute gastritis without mention of hemorrhage 02/12/2003/17/2017 Encounters Date Type Department Care Team Description 05/22/19 1:15 PM CDT Home Care Visit [facility] [address] [place] [address] Nicolas Sanz, PT PT - REASSESSMENT 05/22/19 11:30 AM CDT Home Care Visit [facility] [address] [place] [phone] Valentina Riley RN SN - LONG VISIT (>90 MINUTES) 05/22/19 Anticoagulation (warfarin) [facility] [address] [place] [address] Shana Lozano, DO Anticoagulation 05/21/19 2:45 PM CDT Home Care Visit [facility] [address] [place] [address], [place] [address] Joceline Edouard IT INSTRUCTOR - HOME VISIT 05/20/19 25 Home Care Visit [facility] [address] [place] [address], [place] [address] Valentina Riley, AMELIA CARE COORDINATION 05/20/19 25 Home Care Visit [facility] [address] [place] [phone] Tiffany Fang, OT PARIKH SUPERVISION 05/19/19 25 Home Care Visit [facility] [address] [place] [phone] Edis Camargo, HOD CARRIER CARE COORDINATION 05/18/19 25 Home Care Visit [facility] [address] [place] [phone] Valentina Riley, CASEWORK MANAGER NOTE 05/15/19 25 Travel 05/15/19 25 Home Care Visit [facility] [address] [place] [phone] Monisha Yo, PARIKH CARE COORDINATION 05/14/19 25 4:00 PM CDT Home Care Visit [facility] [address] [place] [phone] Joceline Edouard IT INSTRUCTOR - HOME VISIT 05/14/19 25 1:00 PM CDT Home Care Visit [facility] [address] [place] [phone] Valentina Riley, RN SN - LONG VISIT (>90 MINUTES) 05/14/19 25 Telephone [facility] [address], [place] [phone] Valentina Riley, repairer evaporator 05/12/19 25 10:30 AM CDT Home Care Visit [facility] [address] [place] [phone] Nicolas Sanz, PT PT - HOME VISIT 05/12/19 25 Home Care Visit [facility] [address] [place] [phone] Edis Camargo, HOD CARRIER CARE COORDINATION 05/12/19 Travel 05/11/19 3:00 PM CDT Home Care Visit [facility] [address] [place] [address], [place] [address] Joceline Edouard IT INSTRUCTOR - HOME VISIT 05/11/19 11:00 AM CDT Home Care Visit [facility] [address] [place] [phone] Valentina Riley, AMELIA SN - HOME VISIT 05/10/19 Nurse Triage [facility] [address], [place] [phone] Shana Lozano, DO Home Care; Diarrhea 05/08/19 4:00 PM HOUSING MANAGEMENT OFFICER Home Care Visit [facility] [address] [place] [phone] Joceline Edouard IT INSTRUCTOR - HOME VISIT 05/08/19 10:30 AM HOUSING MANAGEMENT OFFICER Home Care Visit [facility] [address] [place] [phone] Nicolas Sanz, PT PT - HOME VISIT 05/07/19 1:30 PM HOUSING MANAGEMENT OFFICER Home Care Visit [facility] [address] [place] [phone] Valentina Riley, AMELIA SN - LONG VISIT (>90 MINUTES) 05/07/19 Telephone [facility] [address] [phone] Valentina Riley, repairer evaporator 05/05/19 1:30 PM HOUSING MANAGEMENT OFFICER Home Care Visit [facility] [address] [place] [phone] Tiffany Fang, OT OT - HOME VISIT 05/05/19 10:30 AM HOUSING MANAGEMENT OFFICER Home Care Visit [facility] [address] [place] [phone] Nicolas Sanz, PT PT - HOME VISIT 05/05/19 9:30 AM HOUSING MANAGEMENT OFFICER Home Care Visit [facility] [address] [place] [address] Joceline Edouard IT INSTRUCTOR - HOME VISIT 05/05/19 Travel 05/04/19 1:00 PM HOUSING MANAGEMENT OFFICER Home Care Visit [facility] [address] [place] [address] Valentina Riley RN SN - LONG VISIT (>90 MINUTES) 05/04/19 8:30 AM HOUSING MANAGEMENT OFFICER Office Visit [facility] [address] [facility] [address] [place] [address] Lauro Kendall MD Follow Up (POST HOSPITAL FOLLOW UP. LABS DONE PRIOR AT HOME HEALTH CARE./PT states feeling OK/no cardiac symptoms today /Establish care ) 05/04/19 Travel 04/30/19 2:30 PM HOUSING MANAGEMENT OFFICER Home Care Visit [facility] [address] [place] [phone] Nicolas Sanz, PT PT - HOME VISIT 04/30/19 Telephone [place] [phone] Shana Lozano, DO Weight (Weight gain) 04/30/19 Travel 04/29/19 12:30 PM HOUSING MANAGEMENT OFFICER Home Care Visit [facility] [address] [place] [phone] Valentina Riley RN SN - LONG VISIT (>90 MINUTES) 04/29/19 Home Care Visit [facility] [address] [place] [phone] Nicolas Sanz, PT CARE COORDINATION 04/28/19 3:00 PM HOUSING MANAGEMENT OFFICER Home Care Visit [facility] [address] [place] [phone] Nicolas Sanz, PT PT - INITIAL ASSESSMENT 04/28/19 9:00 AM HOUSING MANAGEMENT OFFICER Home Care Visit [facility] [address] [place] [phone] Anabella Rico LPN SALES SUPPORT MANAGER - HOME VISIT 04/28/19 Telephone [facility] [address] [place], [place] [phone] Shana Lozano DO Questions (Verbal orders) 04/28/19 Travel 04/27/19 1:00 PM HOUSING MANAGEMENT OFFICER Home Care Visit [facility] [address] [facility] [address] Tiffany Fang OT OT - INITIAL ASSESSMENT 04/27/19 11:30 AM HOUSING MANAGEMENT OFFICER Anticoagulation (warfarin) [facility] [address] [place] [address] Anticoagulation 04/27/19 9:40 AM HOUSING MANAGEMENT OFFICER Office Visit [facility] [address] [place] [address] Shana Lozano DO Hospital F/U (04/06/2024-04/21/2024 Afib with RVR) 04/27/19 Travel 04/26/19 Telephone [place] [address] [facility] [place] [address] Ignacio Willett MD Care Coordination (EP called and spoke with patient who reports that he moved in with his daughter which is 100 miles from [facility]. EP confirmed with patient that he would be discharged from CR at [facility]. Pt confirmed he would check out places near for CR as needed. ) 04/26/19 Orders Only [facility] [address] [place] [address] Shana Lozano DO <No scans attached> 04/26/19 Orders Only [facility] [address] [place] [address] Shana Lozano DO <No scans attached> 04/25/19 1:00 PM HOUSING MANAGEMENT OFFICER Home Care Visit [facility] [address] [facility] [address] Staci Lara RN SN - HOME VISIT 04/23/19 1:45 PM HOUSING MANAGEMENT OFFICER Home Care Visit [facility] [address] [facility] [address] Joceline Edouard IT INSTRUCTOR - HOME VISIT 04/23/19 25 1:00 PM HOUSING MANAGEMENT OFFICER Home Care Visit [facility] [address] [place] [phone] Valentina Riley, AMELIA SN - LONG VISIT (>90 MINUTES) 04/23/19 25 9:00 AM HOUSING MANAGEMENT OFFICER Anticoagulation (warfarin) [facility] [address] [place] [address] Anticoagulation 04/23/19 25 Orders Only [facility] [address] [place] [address] Shana Lozano, DO Lab 04/23/19 25 Orders Only [facility] [address] [place] [phone] Shana Lozano DO Lab (Home care) 04/23/19 25 Orders Only [facility] [address] [place] [address] Abi Valdovinos, RESIDENTIAL DOOR INSTALLER <No scans attached> 04/23/19 25 Travel 04/22/19 25 1:00 PM HOUSING MANAGEMENT OFFICER Home Care Visit [facility] [address] [place] [phone] Valentina Riley RN SN IV - START OF CARE 04/22/19 25 Plan of Care Documentation [facility] [address] [place] [phone] 04/22/19 25 Telephone [facility] [address] [place] [address] Valentina Riley, repairer evaporator 04/22/19 25 Telephone [facility] [address] [place] [address] Shana Lozano, DO Outside Order (WALKER / PORTABLE URINAL ) 04/22/19 25 Home Care Visit [facility] [address] [place] [phone] Valentina Riley, RN CARE COORDINATION 04/22/19 25 Telephone [facility] [address] [place] [address] Ignacio Willett MD Care Coordination (EP attempted phone contact with patient to touch base regarding cardiac rehab plan. No answer and VM is full. EP to follow-up as needed. ) 04/21/19 25 Telephone [facility] [address] [place] [address] Shana Lozano DO Anticoagulation 04/19/19 25 Telephone [facility] [address] [place] [address] Shana Lozano DO Questions (Home care orders ) 04/17/19 25 Refill [facility] [address] [place] [address] Ignacio Willett MD Refill Request (Isosorbide Mononitrate) 04/12/19 25 10:26 AM HOUSING MANAGEMENT OFFICER Anesthesia Event [facility] [address] [place] [address] Gerardo Garza MD Schlatter, Charles Patrick, OILING MACHINE OPERATOR 04/08/19 25 12:21 PM HOUSING MANAGEMENT OFFICER Anesthesia Event [facility] [address] [place] [address] Leonardo Campbell MD Reiter, Kyle, OILING MACHINE OPERATOR 04/08/19 25 11:26 AM HOUSING MANAGEMENT OFFICER - 04/08/19 25 12:12 PM HOUSING MANAGEMENT OFFICER Surgery [facility] [address] [place] [address] Chepe Francis MD ESOPHAGOGASTRODUODENOSCOPY WITH GASTRIC BIOPSY 04/06/19 25 11:21 PM HOUSING MANAGEMENT OFFICER - 04/21/19 25 5:55 PM HOUSING MANAGEMENT OFFICER Hospital Encounter [facility] [address] [place] [address] Associates, w General Medicine [facility] Berrios MD Mrkvicka, MD [...] Discharge Disposition: Home Health 04/06/19 2:41 PM HOUSING MANAGEMENT OFFICER - 04/06/19 10:17 PM HOUSING MANAGEMENT OFFICER Emergency [address] [address] Charly Monroe MD Binder, Jacob A, MD Atrial fibrillation, unspecified type (HC) (Primary Dx); Hypotension, unspecified hypotension type; Lightheadedness; DAVID (acute kidney injury) Discharge Disposition: Short Term/PPS Hosp 04/06/19 1:56 PM HOUSING MANAGEMENT OFFICER - 04/06/19 2:40 PM HOUSING MANAGEMENT OFFICER Hospital Encounter [address] [address] Ignacio Willett MD 04/06/19 Telephone [facility] [address] [place] [phone] Lukasz Bright MD 04/06/19 25 Travel 04/05/19 Telephone [facility] [address] [place] [address] Ignacio Willett MD Atrial Fibrillation 03/30/19 25 1:47 PM HOUSING MANAGEMENT OFFICER - 03/30/19 25 11:59 PM HOUSING MANAGEMENT OFFICER Hospital Encounter [address] [address] Ignacio Willett MD 03/30/19 25 Travel 03/24/19 25 1:00 PM HOUSING MANAGEMENT OFFICER - 03/24/19 25 11:59 PM HOUSING MANAGEMENT OFFICER Hospital Encounter [address] [address] Ignacio Willett MD 03/24/19 25 Travel 03/22/19 25 1:00 PM HOUSING MANAGEMENT OFFICER - 03/22/19 25 11:59 PM HOUSING MANAGEMENT OFFICER Hospital Encounter [address] [address] Ignacio Willett MD 03/22/19 25 Travel 03/15/19 25 12:50 PM HOUSING MANAGEMENT OFFICER - 03/15/19 25 11:59 PM HOUSING MANAGEMENT OFFICER Hospital Encounter [address] [address] Ignacio Willett MD 03/15/19 25 Travel 03/10/19 25 12:50 PM HOUSING MANAGEMENT OFFICER - 03/10/19 25 11:59 PM HOUSING MANAGEMENT OFFICER Hospital Encounter [address] [address] Ignacio Willett MD 03/10/19 25 Travel 03/08/19 25 1:00 PM HOUSING MANAGEMENT OFFICER - 03/08/19 25 11:59 PM HOUSING MANAGEMENT OFFICER Hospital Encounter [address] [address] Ignacio Willett MD 03/08/19 25 Travel 03/01/20 24 1:29 PM HOUSING MANAGEMENT OFFICER - 03/01/20 24 11:59 PM HOUSING MANAGEMENT OFFICER Hospital Encounter [address] [address] Ignacio Willett MD Ischemic cardiomyopathy; CAD, multiple vessel; Dyslipidemia; Congestive heart failure, unspecified HF chronicity, unspecified heart failure type (HC) 03/01/20 24 Orders Only [address] [address] Ignacio Willett MD <No scans attached> from Last 3 Months Immunizations Immunization Administration Dates Next Due COVID-19 VACCINE COMIRNATY (PFIZER-BIONTECH 30MCG/0.3ML) 12YO+ PFS 12/18/2023 COVID-19 VACCINE SPIKEVAX (M ODERNA 50MCG/0.5ML) 12YO+ PFS 01/27/2023 COVID-19 vaccine (Moderna 100mcg/0.5mL) ZOË OBRIEN 06/21/2020,05/24/2020 COVID-19 vaccine (Moderna 50mcg/0.5mL) 12YO+ BIVALENT ZOË OBRIEN 03/21/2022 COVID-19 vaccine (Moderna Brian sonu 50mcg/0.25mL) MD MICAHV 06/06/2021,01/17/2021 Influenza RIV4 (Age 18+ Year s) [...] on file Legal Sex Male 5:26 PM HOUSING MANAGEMENT OFFICER Gender Identity Not on file Sexual Orientation Not on file Obstetrics History Last Filed Vital Signs Vital Sign Reading Time Taken Comments Blood Pressure 84/58 05/21/2024 2:06 PM CDT Pulse 66 05/21/2024 1:49 PM CDT Temperature 36.1 C (96.9 F) 05/21/2024 1:49 PM CDT Respiratory Rate 18 05/21/2024 1:49 PM CDT Oxygen Saturation 97% 05/21/2024 1:49 PM CDT Inhaled Oxygen Concentration - - Weight 79.4 kg (175 lb) 05/21/2024 1:49 PM CDT Height 175.3 cm (5' 9) 05/03/2024 8:40 AM HOUSING MANAGEMENT OFFICER Body Mass Index 25.84 05/03/2024 8:40 AM HOUSING MANAGEMENT OFFICER Plan of Treatment Upcoming Encounters Date Type Department Care Team (Late st Contact Info) Description 05/24/2024 2:30 PM CDT Home Care Visit [facility] [address] [place] [phone] Joceline Edouard 05/25/2024 5:00 AM CDT Home Care Visit [facility] [address] [place] [phone] Tiffany Fang, OT [address] [place] [address] 05/26/2024 9:30 AM CDT Home Care Visit [facility] [address] [place] [phone] Valentina Riley, AMELIA 05/27/2024 2:45 PM CDT Home Care Visit [facility] [address] [place] [phone] Joceline Edouard 05/28/2024 4:00 AM CDT Home Care Visit [place] [phone] [place] [phone] Valentina Riley, AMELIA 05/29/2024 3:00 AM CDT Home Care Visit [address] [phone] Nicolas Sanz, PT [address] [place], [place] [phone] 06/01/2024 4:00 AM CDT Home Care Visit [place] [phone] [place] [phone] Joceline Edouard 06/01/2024 10:30 AM CDT Home Care Visit [place] [phone] [place] [phone] Valentina Riley, AMELIA 06/03/2024 4:00 AM CDT Home Care Visit [address] [phone] Joceline Edouard 06/03/2024 8:35 AM CDT Office Visit [facility] [place] [address] [place] [address] 06/04/2024 4:00 AM CDT Home Care Visit [address] [phone] Valentina Riley, RN 06/07/2024 4:00 AM CDT Home Care Visit [facility] [address] [place] [address] Valentina Riley, RN 06/08/2024 4:00 AM CDT Home Care Visit [facility] [address] [place] [address] Joceline Edouard L 06/08/2024 8:30 AM CDT Office Visit [facility] [address] [facility] [address] [place] [address] Lauro Kendall MD [address] [facility] [address] [place] [address] 06/10/2024 4:00 AM CDT Home Care Visit [facility] [address] [place] [address] Joceline Edouard 06/11/2024 4:00 AM CDT Home Care Visit [facility] [address] [place] [phone] Valentina Riley, RN 06/14/2024 1:00 PM CDT Home Care Visit [facility] [address] [place] [phone] Valentina Riley, RN 06/15/2024 4:00 AM CDT Home Care Visit [facility] [address] [place] [phone] Joceline Edouard 06/16/2024 1:00 PM CDT Home Care Visit [facility] [address] [place] [phone] Valentina Riley, RN 06/17/2024 4:00 AM CDT Home Care Visit [facility] [address] [place] [phone] Joceline Edouard 06/18/2024 1:00 PM CDT Appointment [facility] [address] [place] [address] Valentina Riley, RN Health Maintenance Due Date [...] Diagnosis Comments PROTIME-INR Routine 04/27/2024 10:26 AM HOUSING MANAGEMENT OFFICER Ischemic cardiomyopathy PRO-BNP Routine 04/27/2024 10:26 AM HOUSING MANAGEMENT OFFICER Acute systolic heart failure (HC) BASIC METABOLIC PANEL Routine 04/27/2024 10:26 AM HOUSING MANAGEMENT OFFICER Acute systolic heart failure (HC) PROTIME-INR Routine 04/23/2024 1:40 PM HOUSING MANAGEMENT OFFICER Atrial fibrillation with rapid ventricular response (HC) BASIC METABOLIC PANEL Early AM 04/21/2024 6:15 AM HOUSING MANAGEMENT OFFICER HEPATIC FUNCTION PANEL Early AM 6:15 AM HOUSING MANAGEMENT OFFICER PROTIME-INR Early AM 04/21/2024 6:15 AM HOUSING MANAGEMENT OFFICER SCAN-CARDIAC STRIP 04/20/2024 11:03 PM HOUSING MANAGEMENT OFFICER SCAN-CARDIAC STRIP 04/20/2024 7:32 PM HOUSING MANAGEMENT OFFICER CBC W PLT NO DIFF Early AM 04/20/2024 7:04 AM HOUSING MANAGEMENT OFFICER MAGNESIUM Early AM 04/20/2024 7:04 AM HOUSING MANAGEMENT OFFICER BASIC METABOLIC PANEL Early AM 04/20/2024 7:04 AM HOUSING MANAGEMENT OFFICER HEPATIC FUNCTION PANEL Early AM 7:04 AM HOUSING MANAGEMENT OFFICER PROTIME-INR Early AM 04/20/2024 7:04 AM HOUSING MANAGEMENT OFFICER O2 SATURATION,MEASURED Early AM 6:22 AM HOUSING MANAGEMENT OFFICER SCAN-CARDIAC STRIP 04/19/2024 7:23 PM HOUSING MANAGEMENT OFFICER SCAN-CARDIAC STRIP 04/19/2024 1:45 PM HOUSING MANAGEMENT OFFICER MAGNESIUM Early AM 04/19/2024 6:57 AM HOUSING MANAGEMENT OFFICER BASIC METABOLIC PANEL Early AM 04/19/2024 6:57 AM HOUSING MANAGEMENT OFFICER HEMOGLOBIN Early AM 04/19/2024 6:57 AM HOUSING MANAGEMENT OFFICER HEPATIC FUNCTION PANEL Early AM 6:57 AM HOUSING MANAGEMENT OFFICER PROTIME-INR Early AM 04/19/2024 6:57 AM HOUSING MANAGEMENT OFFICER O2 SATURATION,MEASURED Early AM 6:11 AM HOUSING MANAGEMENT OFFICER SCAN-CARDIAC STRIP 04/18/2024 10:04 PM HOUSING MANAGEMENT OFFICER SCAN-CARDIAC STRIP 04/18/2024 5:43 PM HOUSING MANAGEMENT OFFICER MAGNESIUM Timed 04/18/2024 4:33 PM HOUSING MANAGEMENT OFFICER POTASSIUM Timed 04/18/2024 12:45 PM HOUSING MANAGEMENT OFFICER O2 SATURATION,MEASURED Early AM 8:11 AM HOUSING MANAGEMENT OFFICER SCAN-CARDIAC STRIP 04/18/2024 7:46 AM HOUSING MANAGEMENT OFFICER MAGNESIUM Early AM 04/18/2024 7:07 AM HOUSING MANAGEMENT OFFICER BASIC METABOLIC PANEL Early AM 04/18/2024 7:07 AM HOUSING MANAGEMENT OFFICER HEPATIC FUNCTION PANEL Early AM 7:07 AM HOUSING MANAGEMENT OFFICER PROTIME-INR Early AM 04/18/2024 7:07 AM HOUSING MANAGEMENT OFFICER SCAN-CARDIAC STRIP 04/17/2024 11:49 PM HOUSING MANAGEMENT OFFICER SCAN-CARDIAC STRIP 04/17/2024 9:12 PM HOUSING MANAGEMENT OFFICER SCAN-CARDIAC STRIP 04/17/2024 7:41 AM HOUSING MANAGEMENT OFFICER MAGNESIUM [place] 04/17/2024 7:26 AM HOUSING MANAGEMENT OFFICER BASIC METABOLIC PANEL Early AM 04/17/2024 7:26 AM HOUSING MANAGEMENT OFFICER HEPATIC FUNCTION PANEL Early AM 7:26 AM HOUSING MANAGEMENT OFFICER PROTIME-INR Early AM 04/17/2024 7:26 AM HOUSING MANAGEMENT OFFICER O2 SATURATION,MEASURED Early AM 6:35 AM HOUSING MANAGEMENT OFFICER SCAN-CARDIAC STRIP 04/16/2024 11:25 PM HOUSING MANAGEMENT OFFICER POTASSIUM Timed 04/16/2024 5:20 PM HOUSING MANAGEMENT OFFICER O2 SATURATION,MEASURED Timed 3:06 PM HOUSING MANAGEMENT OFFICER ALK PHOSPHATASE Today 04/16/2024 10:19 AM HOUSING MANAGEMENT OFFICER BILIRUBIN DIRECT Today 04/16/2024 10:19 AM HOUSING MANAGEMENT OFFICER ALT (SGPT) Today 04/16/2024 10:19 AM HOUSING MANAGEMENT OFFICER AST (SGOT) Today 04/16/2024 10:19 AM HOUSING MANAGEMENT OFFICER POTASSIUM Early AM 04/16/2024 10:19 AM HOUSING MANAGEMENT OFFICER SCAN-CARDIAC STRIP 04/16/2024 8:23 AM HOUSING MANAGEMENT OFFICER HEMOGLOBIN Early AM 04/16/2024 8:09 AM HOUSING MANAGEMENT OFFICER HEPATIC FUNCTION PANEL Early AM 8:09 AM HOUSING MANAGEMENT OFFICER CREATININE Early AM 04/16/2024 8:09 AM HOUSING MANAGEMENT OFFICER SODIUM Early AM 04/16/2024 8:09 AM HOUSING MANAGEMENT OFFICER MAGNESIUM Early AM 04/16/2024 8:09 AM HOUSING MANAGEMENT OFFICER O2 SATURATION,MEASURED Early AM 6:31 AM HOUSING MANAGEMENT OFFICER SCAN-CARDIAC STRIP 04/16/2024 1:03 AM HOUSING MANAGEMENT OFFICER SCAN-CARDIAC STRIP 04/15/2024 8:37 PM HOUSING MANAGEMENT OFFICER O2 SATURATION,MEASURED Today 6:58 PM HOUSING MANAGEMENT OFFICER POTASSIUM Timed 04/15/2024 5:26 PM HOUSING MANAGEMENT OFFICER EKG 12 LEAD [place] 04/15/2024 12:31 PM HOUSING MANAGEMENT OFFICER PROTIME-INR Early AM 04/15/2024 11:55 AM HOUSING MANAGEMENT OFFICER POTASSIUM Timed 04/15/2024 11:55 AM HOUSING MANAGEMENT OFFICER O2 SATURATION,MEASURED RUSH 8:07 AM HOUSING MANAGEMENT OFFICER GLUCOSE METER Timed 04/15/2024 7:49 AM HOUSING MANAGEMENT OFFICER SCAN-CARDIAC STRIP 04/15/2024 7:26 AM HOUSING MANAGEMENT OFFICER HEMOGLOBIN Early AM 04/15/2024 6:38 AM HOUSING MANAGEMENT OFFICER BASIC METABOLIC PANEL Early AM 04/15/2024 6:38 AM HOUSING MANAGEMENT OFFICER MAGNESIUM Early AM 04/15/2024 6:38 AM HOUSING MANAGEMENT OFFICER HEPATIC FUNCTION PANEL Early AM 6:38 AM HOUSING MANAGEMENT OFFICER SCAN-CARDIAC STRIP 04/15/2024 3:06 AM HOUSING MANAGEMENT OFFICER SCAN-CARDIAC STRIP 04/14/2024 9:43 PM HOUSING MANAGEMENT OFFICER GLUCOSE METER Timed 04/14/2024 9:05 PM HOUSING MANAGEMENT OFFICER GLUCOSE METER Timed 04/14/2024 4:15 PM HOUSING MANAGEMENT OFFICER SCAN-CARDIAC STRIP 04/14/2024 3:27 PM HOUSING MANAGEMENT OFFICER ICD ANALYSIS DUAL WITHOUT REPROGRAM Routine 04/14/2024 3:13 PM HOUSING MANAGEMENT OFFICER EKG 12 LEAD [place] 04/14/2024 1:25 PM HOUSING MANAGEMENT OFFICER GLUCOSE METER Timed 04/14/2024 12:04 PM HOUSING MANAGEMENT OFFICER POTASSIUM Timed 04/14/2024 11:49 AM HOUSING MANAGEMENT OFFICER GLUCOSE METER Timed 04/14/2024 7:53 AM HOUSING MANAGEMENT OFFICER SCAN-CARDIAC STRIP 04/14/2024 7:21 AM HOUSING MANAGEMENT OFFICER URINALYSIS MICROSCOPIC Timed 6:29 AM HOUSING MANAGEMENT OFFICER BASIC METABOLIC PANEL Early AM 04/14/2024 6:29 AM HOUSING MANAGEMENT OFFICER MAGNESIUM Early AM 04/14/2024 6:29 AM HOUSING MANAGEMENT OFFICER HEPATIC FUNCTION PANEL Early AM 6:29 AM HOUSING MANAGEMENT OFFICER O2 SATURATION,MEASURED Timed 6:29 AM HOUSING MANAGEMENT OFFICER UA W/ SEDIMENT EXAM REFLEXED PER CRITERIA Today 04/14/2024 6:29 AM HOUSING MANAGEMENT OFFICER GLUCOSE METER Timed 04/13/2024 9:23 PM HOUSING MANAGEMENT OFFICER SCAN-CARDIAC STRIP 04/13/2024 8:03 PM HOUSING MANAGEMENT OFFICER PICC LINE Routine 04/13/2024 7:28 PM HOUSING MANAGEMENT OFFICER INSERT PICC LINE Routine 04/13/2024 7:20 PM HOUSING MANAGEMENT OFFICER GLUCOSE METER Timed 04/13/2024 5:07 PM HOUSING MANAGEMENT OFFICER SCAN-CARDIAC STRIP 04/13/2024 3:12 PM HOUSING MANAGEMENT OFFICER ICD ANALYSIS DUAL WITHOUT REPROGRAM Routine 04/13/2024 1:57 PM HOUSING MANAGEMENT OFFICER EKG 12 LEAD Today 04/13/2024 8:25 AM HOUSING MANAGEMENT OFFICER GLUCOSE METER Timed 04/13/2024 7:41 AM HOUSING MANAGEMENT OFFICER SCAN-CARDIAC STRIP 04/13/2024 7:35 AM HOUSING MANAGEMENT OFFICER HEPATIC FUNCTION PANEL Early AM 6:43 AM HOUSING MANAGEMENT OFFICER HEMOGLOBIN Early AM 04/13/2024 6:43 AM HOUSING MANAGEMENT OFFICER BASIC METABOLIC PANEL Early AM 04/13/2024 6:43 AM HOUSING MANAGEMENT OFFICER GLUCOSE METER Timed 04/12/2024 9:16 PM HOUSING MANAGEMENT OFFICER GLUCOSE METER Timed 04/12/2024 6:39 PM HOUSING MANAGEMENT OFFICER COMPREHENSIVE BLOOD GAS MIXE D VENOUS Timed 04/12/2024 4:48 PM HOUSING MANAGEMENT OFFICER CVL OTHER PROCEDURE Routine 04/12/2024 4:09 PM HOUSING MANAGEMENT OFFICER Cardiovascular symptoms SCAN-CARDIAC STRIP 04/12/2024 3:27 PM HOUSING MANAGEMENT OFFICER US RENAL AND BLADDER COMPLETE Routine 2:51 PM HOUSING MANAGEMENT OFFICER GLUCOSE METER Timed 04/12/2024 11:55 AM HOUSING MANAGEMENT OFFICER ECHO NOEL WO CONTRAST W COLOR W LTD DOPPLER Routine 04/12/2024 10:52 AM HOUSING MANAGEMENT OFFICER EKG 12 LEAD Post Op 04/12/2024 10:49 AM HOUSING MANAGEMENT OFFICER EP OTHER PROCEDURE Routine 04/12/2024 10:48 AM HOUSING MANAGEMENT OFFICER GLUCOSE METER Timed 04/12/2024 7:30 AM HOUSING MANAGEMENT OFFICER HEPATIC FUNCTION PANEL RUSH 6:31 AM HOUSING MANAGEMENT OFFICER BASIC METABOLIC PANEL Early AM 04/12/2024 6:31 AM HOUSING MANAGEMENT OFFICER MAGNESIUM Early AM 04/12/2024 6:31 AM HOUSING MANAGEMENT OFFICER SCAN-CARDIAC STRIP 04/12/2024 3:46 AM HOUSING MANAGEMENT OFFICER SCAN-OPERATIVE/PROCEDURE REPORT 04/12/2024 12:00 AM HOUSING MANAGEMENT OFFICER GLUCOSE METER Timed 04/11/2024 9:47 PM HOUSING MANAGEMENT OFFICER SCAN-CARDIAC STRIP 04/11/2024 8:21 PM HOUSING MANAGEMENT OFFICER GLUCOSE METER Timed 04/11/2024 5:24 PM HOUSING MANAGEMENT OFFICER SCAN-CARDIAC STRIP 04/11/2024 4:18 PM HOUSING MANAGEMENT OFFICER GLUCOSE METER Timed 04/11/2024 11:31 AM HOUSING MANAGEMENT OFFICER HEMOGLOBIN Today 04/11/2024 10:12 AM HOUSING MANAGEMENT OFFICER MAGNESIUM [place] 04/11/2024 10:12 AM HOUSING MANAGEMENT OFFICER BASIC METABOLIC PANEL Early AM 04/11/2024 10:12 AM HOUSING MANAGEMENT OFFICER SCAN-CARDIAC STRIP 04/11/2024 7:48 AM HOUSING MANAGEMENT OFFICER GLUCOSE METER Timed 04/11/2024 7:44 AM HOUSING MANAGEMENT OFFICER GLUCOSE METER Timed 04/10/2024 9:22 PM HOUSING MANAGEMENT OFFICER POTASSIUM Timed 04/10/2024 6:20 PM HOUSING MANAGEMENT OFFICER GLUCOSE METER Timed 04/10/2024 5:09 PM HOUSING MANAGEMENT OFFICER SCAN-CARDIAC STRIP 04/10/2024 4:04 PM HOUSING MANAGEMENT OFFICER POTASSIUM Timed 04/10/2024 1:24 PM HOUSING MANAGEMENT OFFICER GLUCOSE METER Timed 04/10/2024 12:37 PM HOUSING MANAGEMENT OFFICER SCAN-CARDIAC STRIP 04/10/2024 10:29 AM HOUSING MANAGEMENT OFFICER GLUCOSE METER Timed 04/10/2024 8:26 AM HOUSING MANAGEMENT OFFICER MAGNESIUM [place] 04/10/2024 8:09 AM HOUSING MANAGEMENT OFFICER BASIC METABOLIC PANEL Early AM 04/10/2024 8:09 AM HOUSING MANAGEMENT OFFICER SCAN-CARDIAC STRIP 04/10/2024 5:01 AM HOUSING MANAGEMENT OFFICER GLUCOSE METER Timed 04/09/2024 9:07 PM HOUSING MANAGEMENT OFFICER POTASSIUM Timed 04/09/2024 7:56 PM HOUSING MANAGEMENT OFFICER SCAN-CARDIAC STRIP 04/09/2024 7:40 PM HOUSING MANAGEMENT OFFICER GLUCOSE METER Timed 04/09/2024 5:26 PM HOUSING MANAGEMENT OFFICER SCAN-CARDIAC STRIP 04/09/2024 3:40 PM HOUSING MANAGEMENT OFFICER GLUCOSE METER Timed 04/09/2024 8:14 AM HOUSING MANAGEMENT OFFICER BASIC METABOLIC PANEL Early AM 04/09/2024 8:10 AM HOUSING MANAGEMENT OFFICER GLUCOSE METER Timed 04/08/2024 9:15 PM HOUSING MANAGEMENT OFFICER GLUCOSE METER Timed 04/08/2024 4:52 PM HOUSING MANAGEMENT OFFICER POTASSIUM Timed 04/08/2024 2:45 PM HOUSING MANAGEMENT OFFICER GLUCOSE METER Timed 04/08/2024 1:00 PM HOUSING MANAGEMENT OFFICER PATH TISSUE EXAM Today 04/08/2024 12:39 PM HOUSING MANAGEMENT OFFICER ESOPHAGOGASTRODUODENOSCOPY W ITH BIOPSY 04/08/2024 12:13 PM HOUSING MANAGEMENT OFFICER melena GLUCOSE METER Timed 04/08/2024 11:09 AM HOUSING MANAGEMENT OFFICER ENDOSCOPY 04/08/2024 9:49 AM HOUSING MANAGEMENT OFFICER GLUCOSE METER Timed 04/08/2024 8:00 AM HOUSING MANAGEMENT OFFICER EXTRA TUBE BLUE Today 04/08/2024 6:45 AM HOUSING MANAGEMENT OFFICER EXTRA TUBE LAVENDER Today 04/08/2024 6:45 AM HOUSING MANAGEMENT OFFICER PRO-BNP Early AM 04/08/2024 6:45 AM HOUSING MANAGEMENT OFFICER BASIC METABOLIC PANEL Early AM 04/08/2024 6:45 AM HOUSING MANAGEMENT OFFICER SCAN-CARDIAC STRIP 04/07/2024 11:52 PM HOUSING MANAGEMENT OFFICER GLUCOSE METER Timed 04/07/2024 10:19 PM HOUSING MANAGEMENT OFFICER GLUCOSE METER Timed 04/07/2024 7:15 PM HOUSING MANAGEMENT OFFICER HEMOGLOBIN Timed 04/07/2024 6:10 PM HOUSING MANAGEMENT OFFICER DIGOXIN Timed 04/07/2024 1:50 PM HOUSING MANAGEMENT OFFICER HEMOGLOBIN Timed 04/07/2024 1:50 PM HOUSING MANAGEMENT OFFICER GLUCOSE METER Timed 04/07/2024 12:33 PM HOUSING MANAGEMENT OFFICER EKG 12 LEAD Routine 04/07/2024 10:01 AM HOUSING MANAGEMENT OFFICER URINALYSIS MICROSCOPIC Timed 9:48 AM HOUSING MANAGEMENT OFFICER UA W/ SEDIMENT EXAM REFLEXED PER CRITERIA Today 04/07/2024 9:48 AM HOUSING MANAGEMENT OFFICER COVID/FLU/RSV PANEL Today 04/07/2024 9:48 AM HOUSING MANAGEMENT OFFICER ICD ANALYSIS DUAL WITHOUT REPROGRAM Routine 04/07/2024 9:05 AM HOUSING MANAGEMENT OFFICER ECHO TTE LIMITED W CONTRAST W COLOR W DOPPLER Routine 04/07/2024 8:53 AM HOUSING MANAGEMENT OFFICER GLUCOSE METER Timed 04/07/2024 7:43 AM HOUSING MANAGEMENT OFFICER EXTRA TUBE BLUE Today 04/07/2024 6:23 AM HOUSING MANAGEMENT OFFICER LACTATE VENOUS Timed 04/07/2024 6:20 AM HOUSING MANAGEMENT OFFICER HEMOGLOBIN Timed 04/07/2024 6:20 AM HOUSING MANAGEMENT OFFICER MAGNESIUM Early AM 04/07/2024 6:20 AM HOUSING MANAGEMENT OFFICER SODIUM Early AM 04/07/2024 6:20 AM HOUSING MANAGEMENT OFFICER POTASSIUM Early AM 04/07/2024 6:20 AM HOUSING MANAGEMENT OFFICER CREATININE Early AM 04/07/2024 6:20 AM HOUSING MANAGEMENT OFFICER SCAN-CARDIAC STRIP 04/07/2024 5:29 AM HOUSING MANAGEMENT OFFICER SCAN-CARDIAC STRIP 04/07/2024 3:14 AM HOUSING MANAGEMENT OFFICER LACTATE VENOUS Timed 04/07/2024 2:58 AM HOUSING MANAGEMENT OFFICER GLUCOSE METER Timed 04/07/2024 1:49 AM HOUSING MANAGEMENT OFFICER TYPE & SCREEN Today 04/07/2024 12:39 AM HOUSING MANAGEMENT OFFICER FERRITIN URSH 04/07/2024 12:39 AM HOUSING MANAGEMENT OFFICER IRON PLUS IRON BINDING CAP RUSH 04/07 12:39 AM HOUSING MANAGEMENT OFFICER RETICULOCYTES [place] 04/07/2024 12:39 AM HOUSING MANAGEMENT OFFICER LACTATE VENOUS Today 04/07/2024 12:39 AM HOUSING MANAGEMENT OFFICER COMP METABOLIC PANEL STAT 04/07/2024 12:39 AM HOUSING MANAGEMENT OFFICER CBC W PLT NO DIFF STAT 04/07/2024 12:39 AM HOUSING MANAGEMENT OFFICER XR CHEST 1 VIEW PORTABLE STAT 025 8:19 PM HOUSING MANAGEMENT OFFICER TROPONIN I STAT 04/06/2024 7:53 PM HOUSING MANAGEMENT OFFICER BASIC METABOLIC PANEL STAT 04/06/2024 7:53 PM HOUSING MANAGEMENT OFFICER EXTRA TUBE LAVENDER Today 04/06/2024 3:55 PM HOUSING MANAGEMENT OFFICER HEPATIC FUNCTION PANEL STAT 3:55 PM HOUSING MANAGEMENT OFFICER BEDSIDE US STUDY ARCHIVE Routine 025 3:07 PM HOUSING MANAGEMENT OFFICER HEPARIN LEVEL STAT 04/06/2024 2:45 PM HOUSING MANAGEMENT OFFICER APTT STAT 04/06/2024 2:45 PM HOUSING MANAGEMENT OFFICER PROTIME-INR STAT 04/06/2024 2:45 PM HOUSING MANAGEMENT OFFICER EXTRA TUBE GOLD/SST Today 04/06/2024 2:45 PM HOUSING MANAGEMENT OFFICER EXTRA TUBE BLUE Today 04/06/2024 2:45 PM HOUSING MANAGEMENT OFFICER SLIDE REVIEW STAT 04/06/2024 2:45 PM HOUSING MANAGEMENT OFFICER BRAIN NATRIURETIC PEPTIDE STAT 2024 2:45 PM HOUSING MANAGEMENT OFFICER CBC WITH AUTO DIFFERENTIAL STAT 04/06 2:45 PM HOUSING MANAGEMENT OFFICER TROPONIN I STAT 04/06/2024 2:45 PM HOUSING MANAGEMENT OFFICER TSH WITH REFLEX STAT 04/06/2024 2:45 PM HOUSING MANAGEMENT OFFICER MAGNESIUM STAT 04/06/2024 2:45 PM HOUSING MANAGEMENT OFFICER BASIC METABOLIC PANEL STAT 04/06/2024 2:45 PM HOUSING MANAGEMENT OFFICER CBC WITH AUTO DIFFERENTIAL STAT 04/06 2:45 PM HOUSING MANAGEMENT OFFICER EKG 12 LEAD STAT 04/06/2024 2:35 PM HOUSING MANAGEMENT OFFICER SCAN-CARDIAC STRIP 04/06/2024 12:00 AM HOUSING MANAGEMENT OFFICER SCAN-CARDIAC STRIP 04/06/2024 12:00 AM HOUSING MANAGEMENT OFFICER SCAN-CARDIAC STRIP 03/22/2024 12:00 AM HOUSING MANAGEMENT OFFICER SCAN-CARDIAC STRIP 03/15/2024 12:00 AM HOUSING MANAGEMENT OFFICER SCAN-CARDIAC STRIP 03/08/2024 12:00 AM HOUSING MANAGEMENT OFFICER SCAN-CARDIAC STRIP 03/01/2024 12:00 AM HOUSING MANAGEMENT OFFICER SCAN-CARDIAC STRIP 03/01/2024 12:00 AM HOUSING MANAGEMENT OFFICER SCAN-CARDIAC STRIP 03/01/2024 12:00 AM HOUSING MANAGEMENT OFFICER SCAN-CARDIAC STRIP 03/01/2024 12:00 [address] HOUSING MANAGEMENT OFFICER CT ABDOMEN PELVIS WO STAT 01/16/2024 4:53 AM HOUSING MANAGEMENT OFFICER LIPID PANEL W REFLEX MEASURE D LDL [...] Results * (ABNORMAL) PROTIME-INR (04/27/2024 10:26 AM HOUSING MANAGEMENT OFFICER) Only the most recent of9 resultswithin the time period is included. INR 2.4(H) 0.8 - 1.1 04/27/2024 11:18 AM HOUSING MANAGEMENT OFFICER [facility] Blood BLOOD SPECIMEN / Unknown Venipuncture / Unknown 04/27/2024 10:26 AM HOUSING MANAGEMENT OFFICER 04/27/2024 10:38 AM HOUSING MANAGEMENT OFFICER Shana Lozano DO HEMATOLOGY Final Result Performing Organization Address [facility]/State/[facility] Co de Phone Number [place] [address] [place] [address], * (ABNORMAL) PRO-BNP (04/27/2024 10:26 AM HOUSING MANAGEMENT OFFICER) Only the most recent of2 resultswithin the time period is included. PRO-BNP 11,954(H) <125 pg/mL 04/27/2024 4:[address] [facility] Blood BLOOD SPECIMEN / Unknown Venipuncture / Unknown 04/27/2024 10:26 AM HOUSING MANAGEMENT OFFICER 04/27/2024 10:38 AM [facility] 04/27/2024 4:02 PM HOUSING MANAGEMENT OFFICER The following cut-points have been suggested for [...] of 72% for acute congestive heart failure. Abi Valdovinos [facility] SEND OUTS Final Resu lt [facility] [address] [place] [address], * (ABNORMAL) BASIC METABOLIC PANEL (04/27/2024 10:26 AM HOUSING MANAGEMENT OFFICER) Only the most recent of16 resultswithin the time period is included. SODIUM 135(L) 136 - 145 mmol/L 04/27/2024 11:34 AM [facility] POTASSIUM 4.3 3.5 - 5.1 mmol/L 04/27/2024 11:34 AM [facility] CHLORIDE 105 98 - 107 mmol/L 04/27/2024 11:34 AM [facility] CO2,TOTAL 17(L) 22 - 31 mmol/L 04/27/2024 11:34 AM [facility] ANION GAP 13 5 - 18 04/27/2024 11:34 AM [facility] GLUCOSE 110(H) 70 - 99 mg/dL 04/27/2024 11:34 AM [facility] CALCIUM 9.0 8.4 - 10.2 mg/dL 04/27/2024 11:34 AM [facility] BUN 25 8 - 25 mg/dL 04/27/2024 11:34 AM [facility] CREATININE 2.10(H) 0.72 - 1.25 mg/dL 04/27/2024 11:34 AM [facility] BUN/CREAT RATIO 12 10 - 20 11:34 AM [facility] eGFR 33(L) >90 mL/min/1.7 3m2 04/27/2024 11:34 AM [facility] Comment:As of 2021, eG FR is calculated by the CKD-EPI creatinine equation without race adjustment. eGFR can be influenced by muscle mass, exercise, and diet. The reported eGFR is an estimation only and is only applicable if the renal function is stable. Blood BLOOD SPECIMEN / Unknown Venipuncture / Unknown 04/27/2024 10:26 AM HOUSING MANAGEMENT OFFICER 04/27/2024 10:38 AM HOUSING MANAGEMENT OFFICER Abi Valdovinos [facility] CHEMISTRY Final Resu lt [facility] [address] [place] [address], * (ABNORMAL) Hepatic function panel AM (04/21/2024 6:15 AM [facility]) Only the most recent of11 resultswithin the time period is included. ALBUMIN 3.5(L) 4.0 - 4.9 g/dL 04/21/2024 6:57 AM [email or web address] PROTEIN,TOTAL 5.9(L) 6.0 - 8.0 g/dL 04/21/2024 6:57 AM [facility] BILIRUBIN,TOTAL 1.0 0.0 - 1.2 mg/dL 04/21/2024 6:57 AM [facility] BILIRUBIN,DIRECT 0.5(H) 0.0 - 0.2 mg/dL 04/21/2024 6:57 AM [facility] BILIRUBIN,INDIRE CT 0.5 0.2 - 0.8 mg/dL 04/21/2024 6:57 AM [facility] ALK PHOSPHATASE 158(H) 40 - 129 IU/L 04/21/2024 6:57 AM [facility] ALT (SGPT) 48 10 - 50 IU/L 04/21/2024 6:57 AM [facility] AST (SGOT) 18 10 - 50 IU/L 04/21/2024 6:57 AM [facility] Blood BLOOD SPECIMEN / Unknown Venipuncture / Unknown 04/21/2024 6:15 AM HOUSING MANAGEMENT OFFICER 04/21/2024 6:29 AM HOUSING MANAGEMENT OFFICER us Lauro Kendall MD CHEMISTRY Final Res ult [facility] [address] [place] [address], [place] * SCAN-CARDIAC STRIP (04/20/2024 11:03 PM HOUSING MANAGEMENT OFFICER) us Scanner OTHER Final Result * SCAN-CARDIAC STRIP (04/20/2024 7:32 PM HOUSING MANAGEMENT OFFICER) us Scanner OTHER Final Result * (ABNORMAL) CBC (04/20/2024 7:04 AM HOUSING MANAGEMENT OFFICER) Only the most recent of2 resultswithin the time period is included. WHITE BLOOD COUNT 8.1 4.5 - 11.0 thou/cu mm 04/20/2024 7:31 AM HOUSING MANAGEMENT OFFICER [facility] RED BLOOD COUNT 3.32(L) 4.30 - 5.90 mil/cu mm 04/20/2024 7:31 AM HOUSING MANAGEMENT OFFICER [facility] HEMOGLOBIN 9.6(L) 13.5 - 17.5 g/dL 04/20/2024 7:31 AM HOUSING MANAGEMENT OFFICER [facility] HEMATOCRIT 30.3(L) 37.0 - 53.0 % 04/20/2024 7:31 AM HOUSING MANAGEMENT OFFICER [facility] MCV 91 80 - 100 fL 04/20/2024 7:31 AM [facility] MCH 28.9 26.0 - 34.0 pg 04/20/2024 7:31 AM HOUSING MANAGEMENT OFFICER [facility] MCHC 31.7(L) 32.0 - 36.0 g/dL 04/20/2024 7:31 AM [facility] RDW 18.9(H) 11.5 - 15.5 % 04/20/2024 7:31 AM [facility] PLATELET COUNT 229 140 - 440 thou/cu mm 04/20/2024 7:31 AM HOUSING MANAGEMENT OFFICER [facility] MPV 10.9 6.5 - 11.0 fL 04/20/2024 7:31 AM [facility] NRBC 0.2 % 04/20/2024 7:31 AM HOUSING MANAGEMENT OFFICER [facility] ABS NRBC 0.0 thou /cu mm 04/20/2024 7:31 AM [facility] Blood BLOOD SPECIMEN / Unknown Venipuncture / Unknown 04/20/2024 7:04 AM HOUSING MANAGEMENT OFFICER 04/20/2024 7:20 AM HOUSING MANAGEMENT OFFICER Madonna Hedrick TECHNICAL PRODUCER HEMATOLOGY Final Res ult Performing Organization Address City/[facility]/ZIP Co de Phone Number [facility] [address] [address], [place] * (ABNORMAL) Magnesium AM (04/20/2024 7:04 AM HOUSING MANAGEMENT OFFICER) Only the most recent of13 resultswithin the time period is included. MAGNESIUM 2.5(H) 1.6 - 2.4 mg/dL 04/20/2024 7:50 AM HOUSING MANAGEMENT OFFICER [facility] Blood BLOOD SPECIMEN / Unknown Venipuncture / Unknown 04/20/2024 7:04 AM HOUSING MANAGEMENT OFFICER 04/20/2024 7:20 AM HOUSING MANAGEMENT OFFICER Madonna Hedrick TECHNICAL PRODUCER CHEMISTRY Final Res ult Performing Organization Address City/[facility]/ZIP Co de Phone Number [facility] [address] [address], [place] * (ABNORMAL) O2 SATURATION,MEASURED (04/20/2024 6:22 AM HOUSING MANAGEMENT OFFICER) Only the most recent of9 resultswithin the time period is included. O2 SATURATION,MANISH SURED 55 % 04/20/2024 6:38 AM [facility] HEMOGLOBIN,BLO OD GAS 10.0(L) 13.5 - 17.5 g/dL 04/20/2024 6:38 AM HOUSING MANAGEMENT OFFICER [facility] SOURCE, O2M Venous 04/20/2024 6:38 AM HOUSING MANAGEMENT OFFICER [facility] Blood BLOOD SPECIMEN / Unknown Non-Lab Venipuncture / Unknown 04/20/2024 6:22 AM HOUSING MANAGEMENT OFFICER 04/20/2024 6:34 AM HOUSING MANAGEMENT OFFICER Narrative [facility] - 04/20/2024 6:38 AM HOUSING MANAGEMENT OFFICER Reference Range for: Arterial Source (94-98) Non-Arterial Source (70-75) us Marylou Currie NP CHEMISTRY Final R esult Performing Organization Address City/[facility]/ZIP Co de Phone Number [facility] [address] [place] [address], [place] * SCAN-CARDIAC STRIP (04/19/2024 7:23 PM HOUSING MANAGEMENT OFFICER) us Scanner OTHER Final Result * SCAN-CARDIAC STRIP (04/19/2024 1:45 PM HOUSING MANAGEMENT OFFICER) us Scanner OTHER Final Result * (ABNORMAL) Hemoglobin AM (04/19/2024 6:57 AM HOUSING MANAGEMENT OFFICER) Only the most recent of8 resultswithin the time period is included. HEMOGLOBIN 10.3(L) 13.5 - 17.5 g/dL 04/19/2024 8:14 AM HOUSING MANAGEMENT OFFICER [facility] MCV 93 80 - 100 fL 04/19/2024 8:14 AM HOUSING MANAGEMENT OFFICER [facility] Blood BLOOD SPECIMEN / Unknown Non-Lab Venipuncture / Unknown 04/19/2024 6:57 AM HOUSING MANAGEMENT OFFICER 04/19/2024 8:09 AM HOUSING MANAGEMENT OFFICER us Deborah Lipscomb MD HEMATOLOGY Final R esult Performing Organization Address City/[facility]/ZIP Co de Phone Number [facility] [address] [address], [place] * SCAN-CARDIAC STRIP (04/18/2024 10:04 PM HOUSING MANAGEMENT OFFICER) us Scanner OTHER Final Result * SCAN-CARDIAC STRIP (04/18/2024 5:43 PM HOUSING MANAGEMENT OFFICER) us Scanner OTHER Final Result * POTASSIUM (04/18/2024 12:45 PM HOUSING MANAGEMENT OFFICER) Only the most recent of11 resultswithin the time period is included. POTASSIUM 3.9 3.5 - 5.1 mmol/L 04/18/2024 1:14 PM HOUSING MANAGEMENT OFFICER [facility] Blood BLOOD SPECIMEN / Unknown Venipuncture / Unknown 04/18/2024 12:45 PM HOUSING MANAGEMENT OFFICER 04/18/2024 12:51 PM HOUSING MANAGEMENT OFFICER us Deborah Lipscomb MD CHEMISTRY Final R esult [facility] [address] [place] [address], [place] * SCAN-CARDIAC STRIP (04/18/2024 7:46 AM HOUSING MANAGEMENT OFFICER) us Scanner OTHER Final Result * SCAN-CARDIAC STRIP (04/17/2024 11:49 PM HOUSING MANAGEMENT OFFICER) us Scanner OTHER Final Result * SCAN-CARDIAC STRIP (04/17/2024 9:12 PM HOUSING MANAGEMENT OFFICER) us Scanner OTHER Final Result * SCAN-CARDIAC STRIP (04/17/2024 7:41 AM HOUSING MANAGEMENT OFFICER) us Scanner OTHER Final Result * SCAN-CARDIAC STRIP (04/16/2024 11:25 PM HOUSING MANAGEMENT OFFICER) us Scanner OTHER Final Result * (ABNORMAL) ALT (SGPT) (04/16/2024 10:19 AM HOUSING MANAGEMENT OFFICER) ALT (SGPT) 201(H) 10 - 50 IU/L 04/16/2024 11:00 AM HOUSING MANAGEMENT OFFICER [facility] Blood BLOOD SPECIMEN / Unknown Butterfly / Unknown 04/16/2024 10:19 AM HOUSING MANAGEMENT OFFICER 04/16/2024 10:30 AM HOUSING MANAGEMENT OFFICER Deborah Lipscomb MD CHEMISTRY Final R esult Performing Organization Address [facility]/ZIP Co de Phone Number [facility] [address] [place] [address], [place] * (ABNORMAL) AST (SGOT) (04/16/2024 10:19 AM HOUSING MANAGEMENT OFFICER) AST (SGOT) 58(H) 10 - 50 IU/L 04/16/2024 11:00 AM HOUSING MANAGEMENT OFFICER [facility] Blood BLOOD SPECIMEN / Unknown Butterfly / Unknown 04/16/2024 10:19 AM HOUSING MANAGEMENT OFFICER 04/16/2024 10:30 AM HOUSING MANAGEMENT OFFICER Deborah Lipscomb MD CHEMISTRY Final R esult Performing Organization Address [facility] Co de Phone Number [facility] [address], [place] [address], [place] * (ABNORMAL) ALK PHOSPHATASE (04/16/2024 10:19 AM HOUSING MANAGEMENT OFFICER) ALK PHOSPHATASE 157(H) 40 - 129 IU/L 04/16/2024 11:00 AM HOUSING MANAGEMENT OFFICER [facility] Blood BLOOD SPECIMEN / Unknown Butterfly / Unknown 04/16/2024 10:19 AM HOUSING MANAGEMENT OFFICER 04/16/2024 10:30 AM HOUSING MANAGEMENT OFFICER Deborah Lipscomb MD CHEMISTRY Final R esult Performing Organization Address [facility] Co de Phone Number [facility] [address] [place] [address], [place] * (ABNORMAL) BILIRUBIN DIRECT (04/16/2024 10:19 AM HOUSING MANAGEMENT OFFICER) BILIRUBIN,DIRE CT 0.6(H) 0.0 - 0.2 mg/dL 04/16/2024 11:00 AM HOUSING MANAGEMENT OFFICER [facility] Blood BLOOD SPECIMEN / Unknown Butterfly / Unknown 04/16/2024 10:19 AM HOUSING MANAGEMENT OFFICER 04/16/2024 10:30 AM HOUSING MANAGEMENT OFFICER Deborah Lipscomb MD [facility]MISTRY [facility] Performing Organization Address [facility] Phone Number [facility] [address] [place] [address], * SCAN-CARDIAC STRIP (04/16/2024 8:23 AM HOUSING MANAGEMENT OFFICER) Scanner OTHER Final Result * (ABNORMAL) SODIUM (04/16/2024 8:09 AM HOUSING MANAGEMENT OFFICER) Only the most recent of2 resultswithin the time period is included. SODIUM 134(L) 136 - 145 mmol/L 04/16/2024 9:45 AM HOUSING MANAGEMENT OFFICER [facility] Blood BLOOD SPECIMEN / Unknown Non-Lab Venipuncture / Unknown 04/16/2024 8:09 AM HOUSING MANAGEMENT OFFICER 04/16/2024 9:06 AM HOUSING MANAGEMENT OFFICER Deborah Lipscomb MD CHEMISTRY Final [facility] Performing Organization Address [facility] Phone Number [facility] [address] [place] [address], * (ABNORMAL) CREATININE (04/16/2024 8:09 AM HOUSING MANAGEMENT OFFICER) Only the most recent of2 resultswithin the time period is included. eGFR 37(L) >90 mL/min/1.7 3m2 04/16/2024 9:45 AM HOUSING MANAGEMENT OFFICER [facility] Comment:As of 2021, eG FR is calculated by the CKD-EPI creatinine equation without race adjustment. eGFR can be influenced by muscle mass, exercise, and diet. The reported eGFR is an estimation only and is only applicable if the renal function is stable. CREATININE 1.91(H) 0.70 - 1.20 mg/dL 04/16/2024 9:45 AM HOUSING MANAGEMENT OFFICER [facility] Blood BLOOD SPECIMEN / Unknown Non-Lab Venipuncture / Unknown 04/16/2024 8:09 AM HOUSING MANAGEMENT OFFICER 04/16/2024 9:06 AM HOUSING MANAGEMENT OFFICER us Deborah Lipscomb MD CHEMISTRY Final R esult [facility] [address] [place] [address], [place] * SCAN-CARDIAC STRIP (04/16/2024 1:03 AM HOUSING MANAGEMENT OFFICER) us Scanner OTHER Final Result * SCAN-CARDIAC STRIP (04/15/2024 8:37 PM HOUSING MANAGEMENT OFFICER) us Scanner OTHER Final Result * EKG 12 LEAD (04/15/2024 12:31 PM HOUSING MANAGEMENT OFFICER) Only the most recent of6 resultswithin the [...] NOW QTc 448 ms BEYOND NOW P [place] 53 degrees BEYOND NOW R Chualar -60 degrees BEYOND NOW T Chualar 118 degrees BEYOND NOW 04/15/2024 12:3 1 PM HOUSING MANAGEMENT OFFICER 04/16/2024 1:25 AM HOUSING MANAGEMENT OFFICER us Jossie Prado TECHNICAL PRODUCER EKG ORD Final Result Performing Organization Address City/[facility]/ZIP Co de Phone Number BEYOND NOW [place], [place] * (ABNORMAL) GLUCOSE METER (04/15/2024 7:49 AM HOUSING MANAGEMENT OFFICER) Only the most recent of33 resultswithin the time period is included. GLUCOSE METER 134(H) 65 - 100 mg/dL 04/15/2024 7:54 AM HOUSING MANAGEMENT OFFICER [facility] Blood BLOOD SPECIMEN / Unknown 04/15/2024 7:49 AM HOUSING MANAGEMENT OFFICER 04/15/2024 7:54 AM HOUSING MANAGEMENT OFFICER us Deborah Lipscomb MD CHEMISTRY Final R esult [facility] [address] [place] [address], [place] * SCAN-CARDIAC STRIP (04/15/2024 7:26 AM HOUSING MANAGEMENT OFFICER) us Scanner OTHER Final Result * SCAN-CARDIAC STRIP (04/15/2024 3:06 AM HOUSING MANAGEMENT OFFICER) us Scanner OTHER Final Result * SCAN-CARDIAC STRIP (04/14/2024 9:43 PM HOUSING MANAGEMENT OFFICER) us Scanner OTHER Final Result * SCAN-CARDIAC STRIP (04/14/2024 3:27 PM HOUSING MANAGEMENT OFFICER) us Scanner OTHER Final Result * ICD ANALYSIS DUAL WITHOUT REPROGRAM (04/14/2024 3:13 PM HOUSING MANAGEMENT OFFICER) Narrative Vasyl Kim MD - 04/14/2024 3:13 PM HOUSING MANAGEMENT OFFICER Marino Strickland RN 04/14/2024 3:17 PM ICD EVALUATION REPORT 04/14/2024 Summary: Normal pacemaker function. Lead trends stable. 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 No VT detections. AP 20.9%, TECHNOLOGY OFFICER 0.2%. Battery estimating 11.2 years remaining. Indication for ICD: Primary Prevention of Sudden Cardiac Primary MD: Shana Lozano DO Primary Inventory Technician: [facility] Implanting MD: Bert Quiros- [facility] DEVICE DATA Purification Operator Medtronic: Model [place] XT DR [id number] Implant Date 04/09/2023 LEAD DATA Atrial Lead: Purification Operator Medtronic: Model 5076-52 cm Implant Date 04/09/23 RV Lead: Purification Operator Medtronic: Model [id number]-62 cm Implant Date 04/09/23 [...] Tachy therapy hx: none Location of evaluation: [facility] [id number] Reason for evaluation: MD request MEASUREMENTS [...] permanent changes made. Follow up: follows with [facility] device clinic Marino Strickland RN Nurse Clinician II [facility] Pacemaker/ICD [phone] us Vasyl Kim MD CARDIAC SERVICES ORD Final Result * SCAN-CARDIAC STRIP (04/14/2024 7:21 AM HOUSING MANAGEMENT OFFICER) Scanner OTHER Final Result * URINALYSIS MICROSCOPIC (04/14/2024 6:29 AM HOUSING MANAGEMENT OFFICER) Only the most recent of2 resultswithin the time period is included. RBC 0-2 0-2, None Seen /HPF 04/14/2024 7:26 AM HOUSING MANAGEMENT OFFICER [facility] WBC 3-5 0-2, 3-5, None Seen /HPF 04/14/2024 7:26 AM HOUSING MANAGEMENT OFFICER [facility] BACTERIA None Seen None Seen, Rare, Few Bacteria/ HPF 04/14/2024 7:26 AM HOUSING MANAGEMENT OFFICER [facility] EPITHELIAL CELLS None Seen None Seen, Few Epi/HPF 04/14/2024 7:26 AM HOUSING MANAGEMENT OFFICER [facility] HYALINE CASTS 0-2 0-2, 3-5 /LPF 04/14/2024 7:26 AM HOUSING MANAGEMENT OFFICER [facility] Urine URINE SPECIMEN / Unknown Non-Blood / Unknown 04/14/2024 6:29 AM HOUSING MANAGEMENT OFFICER 04/14/2024 6:36 AM HOUSING MANAGEMENT OFFICER us Santy Crowley MD URINE Final Re sult [facility] [address] [place] [address], * (ABNORMAL) UA W/ SEDIMENT EXAM REFLEXED PER CRITERIA (04/14/2024 6:29 AM HOUSING MANAGEMENT OFFICER) Only the most recent of2 resultswithin the time period is included. COLOR Yellow Yellow Color 04/14/2024 7:26 AM HOUSING MANAGEMENT OFFICER [facility] CLARITY Clear Clear Clarity 04/14/2024 7:26 AM HOUSING MANAGEMENT OFFICER [facility] SPECIFIC GRAVITY,URINE 1.015 1.010, 1.015, 1.020, 1.025 04/14/2024 7:26 AM [facility] PH,URINE 5.5 6.0, 7.0, 8.0, 5.5, 6.5, 7.5, 8.5 04/14/2024 7:26 AM [facility] UROBILINOGEN, QUALITATIVE Normal Normal EU/dl 04/14/2024 7:26 AM [facility] PROTEIN, URINE Negative Negative mg/dL 04/14/2024 7:26 AM [facility] GLUCOSE, URINE Negative Negative mg/dL 04/14/2024 7:26 AM [facility] KETONES,URINE Negative Negative mg/dL 04/14/2024 7:26 AM [facility] BILIRUBIN,URI NE Negative Negative 04/14/2024 7:26 AM [facility] OCCULT BLOOD,URINE Negative Negative 04/14/2024 7:26 AM [facility] NITRITE Negative Negative 04/14/2024 7:26 AM [facility] LEUKOCYTE ESTERASE Trace(A) Negative 04/14/2024 7:26 AM [facility] Urine URINE SPECIMEN / Unknown Non-Blood / Unknown 04/14/2024 6:29 AM HOUSING MANAGEMENT OFFICER 04/14/2024 6:36 AM HOUSING MANAGEMENT OFFICER us Santy Crowley MD URINE Final Re sult [facility] [address] [place] [address], * SCAN-CARDIAC STRIP (04/13/2024 8:03 PM HOUSING MANAGEMENT OFFICER) us Scanner OTHER Final Result * PICC LINE (04/13/2024 7:28 PM HOUSING MANAGEMENT OFFICER) Narrative Eleonora Fox RN - 04/13/2024 7:28 PM HOUSING MANAGEMENT OFFICER Eleonora Fox RN 04/13/2024 7:33 PM PICC Line Insertion Note 04/13/2024 7:28 PM Procedure education reviewed: Placement procedure, discussed with: Patient face to face. Patient face to face confirms understanding of procedure. Assembling Machine Operator used: No Reason for insertion: MD order [...] (Active) 04/13/241899 Right;Basilic;Upper Arm Vessel Diameter: 0.46 Qfwawfth-an-Pjob Ratio (%): Visible Catheter Length (cm): 0 [...] Dressing change due date 04/20/2024 04/13/241899 Line Purification Operator Name: Bard Line Type: Valved Power PICC Lot Number: [id number] Access Assistance:Modified Seldinger Technique (Micro-Introducer) WITH Dermatotomy [...] * Insert PICC line (04/13/2024 7:20 PM HOUSING MANAGEMENT OFFICER) Narrative Eleonora Fox, RN - 04/13/2024 7:20 PM HOUSING MANAGEMENT OFFICER Eleonora Fox, RN 04/13/2024 7:22 PM PICC [...] ult * SCAN-CARDIAC STRIP (04/13/2024 3:12 PM HOUSING MANAGEMENT OFFICER) us Scanner OTHER Final Result * ICD ANALYSIS DUAL WITHOUT REPROGRAM (04/13/2024 1:57 PM HOUSING MANAGEMENT OFFICER) Narrative Vasyl Kim MD - 04/13/2024 1:57 PM HOUSING MANAGEMENT OFFICER Mirela Bates, RN 04/13/2024 2:23 PM ICD EVALUATION REPORT 04/13/2024 Summary: Normal pacemaker function. Lead trends stable. 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 No VT detections. AP 2.9%, TECHNOLOGY OFFICER 51.9%. Battery estimating 11.3 years remaining. Indication for ICD: Primary Prevention of Sudden Cardiac Primary MD: Shana Lozano DO Primary Inventory Technician: [facility] Implanting MD: Bert Quiros- [facility] DEVICE DATA Purification Operator Medtronic: Model [place] XT DR [id number] Implant Date 04/09/2023 LEAD DATA Atrial Lead: Purification Operator Medtronic: Model 5076-52 cm Implant Date 04/09/23 RV Lead: Purification Operator Medtronic: Model 6935M-62 cm Implant Date 04/09/23 [...] Tachy therapy hx: none Location of evaluation: [facility] [id number] Reason for evaluation: MD request- check [...] permanent changes made. Follow up: follows with [facility] device clinic Mirela Bates RN Nurse Clinician II [facility] Pacemaker/ICD Clinic [phone] Vasyl Kim MD CARDIAC SERVICES ORD Final Result * SCAN-CARDIAC STRIP (04/13/2024 7:35 AM HOUSING MANAGEMENT OFFICER) Scanner OTHER Final Result * (ABNORMAL) COMPREHENSIVE BLOOD GAS MIXED VENOUS (04/12/2024 4:48 PM HOUSING MANAGEMENT OFFICER) O2 SATURATION, MEASURED, MIXED VENOUS 41(L) 70 - 75 % 04/12/2024 4:48 PM HOUSING MANAGEMENT OFFICER [facility] PATIENT TEMPERATURE 37.0 Degrees C 04/12/2024 4:48 PM HOUSING MANAGEMENT OFFICER [facility] COLLECTION SITE PULMONARY ARTERY 04/12/2024 4:48 PM HOUSING MANAGEMENT OFFICER [facility] [employer] HEMOGLOBIN,BLOO D GAS 11.4(L) 13.5 - 17.5 g/dL 04/12/2024 4:48 PM HOUSING MANAGEMENT OFFICER [facility] [employer] [facility]- [facility] Blood BLOOD SPECIMEN / Unknown 04/12/2024 4:48 PM HOUSING MANAGEMENT OFFICER 04/12/2024 4:48 PM HOUSING MANAGEMENT OFFICER us [facility] CHEMISTRY Final Re sult [facility] [address] [place] [address], [place] * CVL OTHER PROCEDURE (04/12/2024 4:09 PM HOUSING MANAGEMENT OFFICER) Anatomical Region Laterality Modality Other 04/12/2024 4:09 PM HOUSING MANAGEMENT OFFICER us Provider Referring CV IMAGING Final Result * SCAN-CARDIAC STRIP (04/12/2024 3:27 PM HOUSING MANAGEMENT OFFICER) us Scanner OTHER Final Result * US RENAL AND BLADDER COMPLETE (04/12/2024 2:51 PM HOUSING MANAGEMENT OFFICER) Anatomical Region Laterality Modality Abdomen, AORTA, KIDNEYS Ultrasou nd 04/12/2024 3:46 PM HOUSING MANAGEMENT OFFICER Impressions 04/12/2024 3:46 PM HOUSING MANAGEMENT OFFICER Simple appearing right lower pole renal cyst. Otherwise, no concerning findings on a renal ultrasound. Dictated by Danny Rubio MD @ 04/12/2024 3:46:12 PM (Electronically Signed) Narrative 04/12/2024 3:46 PM HOUSING MANAGEMENT OFFICER For Patients: As a result of the [...] COLOR W LTD DOPPLER (04/12/2024 10:52 AM HOUSING MANAGEMENT OFFICER) MITRAL VALVE MR ERO 13 mm2 EJECTION FRACTION 10 - 20% Anatomical Region Laterality Modality Ultrasound 04/12/2024 10:2 2 AM HOUSING MANAGEMENT OFFICER Narrative 04/12/2024 1:01 PM HOUSING MANAGEMENT OFFICER TRANSESOPHAGEAL ECHOCARDIOGRAM CASEY SOLER : 1950 73 years Study Date: 04/12/2024 10:22:59 AM Gender: M BP: 96/76 mmHg Height: 172.00 cm BSA: 1.91 m Weight: 78.00 kg Tech: LETICIA/ION Referring MD: FARA BLACKWELL Site: [facility] Reading Location: [facility] Patient Location: Inpatient. Procedure: NOEL, Limited Spectral [...] . This study was interpreted by an [facility] accredited facility. Final Procedure Note Troy Munoz MD - 04/12/2024 TRANSESOPHAGEAL ECHOCARDIOGRAM CASEY SOLER : 1950 73 years Study Date: 04/12/2024 10:22:59 AM Gender: M BP: 96/76 mmHg Height: 172.00 cm BSA: 1.91 m Weight: 78.00 kg Tech: LETICIA/ION Referring MD: FARA BLACKWELL Site: [facility] Reading Location: [facility] Patient Location: Inpatient. Procedure: NOEL, Limited Spectral [...] . This study was interpreted by an [facility] accredited facility. Final us Fara Blackwell TECHNICAL PRODUCER ECHO ORD Final Resu lt * EP OTHER PROCEDURE (04/12/2024 10:48 AM HOUSING MANAGEMENT OFFICER) Anatomical Region Laterality Modality Other Narrative 04/12/2024 10:48 AM HOUSING MANAGEMENT OFFICER Troy Munoz MD 04/12/2024 10:48 AM [facility] Procedure Note Date of Service: 04/12/2024 Procedure [...] sult * SCAN-CARDIAC STRIP (04/12/2024 3:46 AM HOUSING MANAGEMENT OFFICER) us Scanner OTHER Final Result * SCAN-OPERATIVE/PROCEDURE REPORT (04/12/2024 12:00 AM HOUSING MANAGEMENT OFFICER) Narrative 04/12/2024 12:00 AM HOUSING MANAGEMENT OFFICER Ordered by an unspecified provider. us Other Clinical Staff OTHER Final Resul t * SCAN-CARDIAC STRIP (04/11/2024 8:21 PM HOUSING MANAGEMENT OFFICER) us Scanner OTHER Final Result * SCAN-CARDIAC STRIP (04/11/2024 4:18 PM HOUSING MANAGEMENT OFFICER) us Scanner OTHER Final Result * SCAN-CARDIAC STRIP (04/11/2024 7:48 AM HOUSING MANAGEMENT OFFICER) us Scanner OTHER Final Result * SCAN-CARDIAC STRIP (04/10/2024 4:04 PM HOUSING MANAGEMENT OFFICER) us Scanner OTHER Final Result * SCAN-CARDIAC STRIP (04/10/2024 10:29 AM HOUSING MANAGEMENT OFFICER) us Scanner OTHER Final Result * SCAN-CARDIAC STRIP (04/10/2024 5:01 AM HOUSING MANAGEMENT OFFICER) us Scanner OTHER Final Result * SCAN-CARDIAC STRIP (04/09/2024 7:40 PM HOUSING MANAGEMENT OFFICER) us Scanner OTHER Final Result * SCAN-CARDIAC STRIP (04/09/2024 3:40 PM HOUSING MANAGEMENT OFFICER) us Scanner OTHER Final Result * PATH TISSUE EXAM (04/08/2024 12:39 PM HOUSING MANAGEMENT OFFICER) Case Report Pathology Report Case: [id number] Authorizing Provider: Chepe Francis MD Collected: 04/08/2024 1239 Ordering Location: [facility] Received: 04/08/2024 1244 [facility] Pathologist: Lukasz Pinto MD Specimen: Gastric Biopsy 04/09/2024 11:12 AM HOUSING MANAGEMENT OFFICER [facility] Final Diagnosis A) STOMACH, BIOPSY: 1. Normal gastric antral and body mucosae with endoscopic erosion (see comment) 2. Negative for chronic gastritis or Helicobacter 04/09/2024 11:12 AM HOUSING MANAGEMENT OFFICER [facility] Comment A) We note the endoscopic presence of an erosion. The sampled mucosa is histologically normal. In this context patchy reactive gastropathy due to chemical type injury (NSAIDs, alcohol, bile reflux, etc.) seems likely. Please correlate clinically. 04/09/2024 11:12 AM HOUSING MANAGEMENT OFFICER [facility] Clinical Information 73-year-old male with iron deficiency anemia and melena. He is on chronic aspirin, Plavix, and ibuprofen. EGD identified a single erosion in the prepyloric region of the stomach. 04/09/2024 11:12 AM HOUSING MANAGEMENT OFFICER [facility] Gross Description A) Received in formalin is a 6 x 3 x 1 mm aggregate of alvarez mucosa. Submitted in one cassette. It is labeled with the patient's name and designated gastric biopsy. Joana Estrada 04/08/2024 1:06 PM 04/09/2024 11:12 AM [facility] Microscopic Description The final diagnosis is based on microscopic examination of appropriate sections of all specimens. 04/09/2024 11:12 AM [facility] Additional Information Interpreted at [facility], Central Laboratory - [address], [place] [address] 04/09/2024 11:12 AM HOUSING MANAGEMENT OFFICER [facility] LABORAT[facility] Biopsy GASTRIC BIOPSY SPECIMEN / Unknown 04/08/2024 12:39 PM HOUSING MANAGEMENT OFFICER 04/08/2024 12:44 PM HOUSING MANAGEMENT OFFICER Chepe Francis MD PATHOLOGY/CYTOLOGY Christy l Result [facility] [address] [place] [address], [place] * ENDOSCOPY (04/08/2024 9:49 AM HOUSING MANAGEMENT OFFICER) 04/08/2024 9:49 AM HOUSING MANAGEMENT OFFICER Narrative Transcriptions Chepe Francis MD - 04/08/2024 [...] surgery and alternatives discussed. The endoscope [id number] was introduced through the mouth, and advanced [...] * EXTRA TUBE LAVENDER (04/08/2024 6:45 AM HOUSING MANAGEMENT OFFICER) Only the most recent of2 resultswithin the time period is included. Blood BLOOD SPECIMEN / Unknown Non-Lab Venipuncture / Unknown 04/08/2024 6:45 AM HOUSING MANAGEMENT OFFICER 04/08/2024 6:57 AM HOUSING MANAGEMENT OFFICER us Joseph Arora MD LABORATORY Final Re sult [facility] [address] [place] [id number], [place] * EXTRA TUBE BLUE (04/08/2024 6:45 AM HOUSING MANAGEMENT OFFICER) Only the most recent of3 resultswithin the time period is included. Blood BLOOD SPECIMEN / Unknown Non-Lab Venipuncture / Unknown 04/08/2024 6:45 AM HOUSING MANAGEMENT OFFICER 04/08/2024 6:57 AM HOUSING MANAGEMENT OFFICER Joseph Arora MD LABORATORY Final Re sult Performing Organization Address [facility] Co de Phone Number [facility] [address] [place] [address], [place] * SCAN-CARDIAC STRIP (04/07/2024 11:52 PM HOUSING MANAGEMENT OFFICER) us Scanner OTHER Final Result * (ABNORMAL) DIGOXIN (04/07/2024 1:50 PM HOUSING MANAGEMENT OFFICER) Pathologist [facility] DIGOXIN 2.5(H) 0.8 - 2.0 ng/mL 04/07/2024 2:32 PM HOUSING MANAGEMENT OFFICER [facility] DATE OF LAST DOSE Not Given 04/07/2024 2:32 PM HOUSING MANAGEMENT OFFICER [facility] TIME OF LAST DOSE Not Given 04/07/2024 2:32 PM HOUSING MANAGEMENT OFFICER [facility] Blood BLOOD SPECIMEN / Unknown Venipuncture / Unknown 04/07/2024 1:50 PM HOUSING MANAGEMENT OFFICER 04/07/2024 1:55 PM HOUSING MANAGEMENT OFFICER Guille Choi NP CHEMISTRY Final Result Performing Organization Address [facility] Co de Phone Number [facility] [address] [place] [address], [place] * COVID/FLU/RSV PANEL (04/07/2024 9:48 AM HOUSING MANAGEMENT OFFICER) Pathologist [facility] COVID 19 [facility] Negative Negative 04/07/2024 12:16 PM HOUSING MANAGEMENT OFFICER [facility] Comment:All PCR tests are krishnan bject to false negative result due to variability in viral load and collection technique. A negative result does not rule out a SARS-CoV-2 infection. Clinical correlation required. INFLUENZA A PCR Negative 12:16 PM HOUSING MANAGEMENT OFFICER [facility] INFLUENZA B PCR Negative 12:16 PM HOUSING MANAGEMENT OFFICER [facility] Respiratory Syncytial Virus Negative 04/07/2024 12:16 PM HOUSING MANAGEMENT OFFICER [facility] Swab NASOPHARYNGEAL SWAB / Unknown Non-Blood / Unknown 04/07/2024 9:48 AM HOUSING MANAGEMENT OFFICER 04/07/2024 10:17 AM HOUSING MANAGEMENT OFFICER us Joseph Arora MD MICROBIOLOGY Final Re sult [facility] [address] [place] [address], * ICD ANALYSIS DUAL WITHOUT REPROGRAM (04/07/2024 9:05 AM HOUSING MANAGEMENT OFFICER) Narrative Chato Benz MD - 04/07/2024 9:05 AM HOUSING MANAGEMENT OFFICER Mirela Bates RN 04/07/2024 9:59 AM ICD EVALUATION REPORT April 07, 2024 Summary: Normal pacemaker function. Lead trends stable. One AT/AF detection- beginning on 04/03/24 and has continuous since this time. Poor ventricular rate control. One VT detection on 01/29/24- 3 seconds rate of 233 bpm. AP 35.8%, TECHNOLOGY OFFICER 2.2%. Battery estimating 11.3 years remaining. Indication for ICD: Primary Prevention of Sudden Cardiac Primary MD: Shana Lozano DO Primary Inventory Technician: [facility] Implanting MD: Bert Quiros- [facility] DEVICE DATA Purification Operator Medtronic: Model [place] XT DR [id number] Implant Date 04/09/2023 LEAD DATA Atrial Lead: Purification Operator Medtronic: Model 5076-52 cm Implant Date 04/09/23 RV Lead: Purification Operator Medtronic: Model 6935M-62 cm Implant Date 04/09/23 [...] Tachy therapy hx: none Location of evaluation: [facility] [id number] Reason for evaluation: MD request MEASUREMENTS [...] permanent changes made. Follow up: follows with [facility] device clinic Mirela Bates RN Nurse Clinician II [facility] Pacemaker/ICD Clinic [phone] us Chato Benz MD CARDIAC SERVICES ORD F inal Result * ECHO TTE LIMITED W CONTRAST W COLOR W DOPPLER (04/07/2024 8:53 AM HOUSING MANAGEMENT OFFICER) AORTIC VALVE MEAN PG 2 mmHg EJECTION FRACTION 20 % LVEDD 6.6 cm Anatomical Region Laterality Modality Ultrasound 04/07/2024 8:08 AM HOUSING MANAGEMENT OFFICER Narrative 04/07/2024 9:36 AM HOUSING MANAGEMENT OFFICER ECHOCARDIOGRAM CASEY SOLER : 1950 73 years Study Date: 04/07/2024 8:08:24 AM Gender: M BP: 90/87 mmHg Height: 172.00 cm BSA: 1.94 m Weight: 81.00 kg Tech: LETICIA Casas MD: GUILLE CHOI Site: [facility] Reading Location: [facility] IP Patient Location: Inpatient. [...] documentation: 2 ml diluted Definity, lot #[id number], [facility]# [id number] was administered peripherally to enhance visualization of all left ventricular segments. . This study was interpreted by an [facility] accredited facility. Final Procedure Note Jayashree Velarde MD - 04/07/2024 ECHOCARDIOGRAM CASEY SOLER : 1950 73 years Study Date: 04/07/2024 8:08:24 AM Gender: M BP: 90/87 mmHg Height: 172.00 cm BSA: 1.94 m Weight: 81.00 kg Tech: LETICIA Casas MD: GUILLE CHOI Site: [facility] Reading Location: [facility] IP Patient Location: Inpatient. [...] documentation: 2 ml diluted Definity, lot #[id number], [facility]#[id number] was administered peripherally to enhance visualization of allleft ventricular segments. . This study was interpreted by an [facility] accredited facility. Final us Guille Choi NP ECHO ORD Final Result * (ABNORMAL) LACTATE VENOUS (04/07/2024 6:20 AM HOUSING MANAGEMENT OFFICER) Only the most recent of3 resultswithin the time period is included. Pathologist [facility] LACTATE,VENOUS 2.5(H) 0.5 - 2.0 mmol/L 04/07/2024 7:32 AM HOUSING MANAGEMENT OFFICER [facility] [facility] Blood BLOOD SPECIMEN / Unknown Venipuncture / Unknown 04/07/2024 6:20 AM HOUSING MANAGEMENT OFFICER 04/07/2024 6:59 AM HOUSING MANAGEMENT OFFICER us Guille Choi NP CHEMISTRY Final Result [facility] [address] [place] [address], * SCAN-CARDIAC STRIP (04/07/2024 5:29 AM HOUSING MANAGEMENT OFFICER) us Scanner OTHER Final Result * SCAN-CARDIAC STRIP (04/07/2024 3:14 AM HOUSING MANAGEMENT OFFICER) us Scanner OTHER Final Result * TYPE & SCREEN (04/07/2024 12:39 AM HOUSING MANAGEMENT OFFICER) Pathologist [facility] ABORH A Rh Positive 04/07/2024 2:10 AM HOUSING MANAGEMENT OFFICER [facility] ANTIBODY SCREEN Negative Negative 04/07/2024 2:10 AM HOUSING MANAGEMENT OFFICER [facility] SPECIMEN EXPIRATION DATE/TIME 04/10/24 23:59 04/07/2024 2:10 AM HOUSING MANAGEMENT OFFICER [facility] Blood BLOOD SPECIMEN / Unknown Butterfly / Unknown 04/07/2024 12:39 AM HOUSING MANAGEMENT OFFICER 04/07/2024 1:05 AM HOUSING MANAGEMENT OFFICER Guille Choi TECHNICAL PRODUCER BLOOD BANK Final Result Performing Organization Address City/[facility]/ZIP Co de Phone Number [facility] BLOOD BANK [address] [place] [address], * (ABNORMAL) Iron plus iron binding cap AM (04/07/2024 12:39 AM HOUSING MANAGEMENT OFFICER) Pathologist [facility] IRON 57(L) 61 - 157 ug/dL 04/07/2024 2:03 AM HOUSING MANAGEMENT OFFICER [facility] UIBC (UNSATURATED) 229 112 - 347 ug/dL 04/07/2024 2:03 AM HOUSING MANAGEMENT OFFICER [facility] IRON BINDING CAPACITY 286 250 - 400 ug/dL 04/07/2024 2:03 AM HOUSING MANAGEMENT OFFICER [facility] IRON,% SATURATION 20 14 - 50 % 04/07/2024 2:03 AM HOUSING MANAGEMENT OFFICER [facility] Blood BLOOD SPECIMEN / Unknown Butterfly / Unknown 04/07/2024 12:39 AM HOUSING MANAGEMENT OFFICER 04/07/2024 1:05 AM HOUSING MANAGEMENT OFFICER Parmjit Berrios MD CHEMISTRY Final Resul t [facility] [address] [place] [address], * (ABNORMAL) Reticulocyte count AM (04/07/2024 12:39 AM HOUSING MANAGEMENT OFFICER) Pathologist [facility] RETIC% 2.3(H) 0.5 - 1.5 % 04/07/2024 1:35 AM HOUSING MANAGEMENT OFFICER [facility] RETIC (ABSOLUTE) 0.09(H) 0.03 - 0.08 mil/cu mm 04/07/2024 1:35 AM HOUSING MANAGEMENT OFFICER [facility] Blood BLOOD SPECIMEN / Unknown Butterfly / Unknown 04/07/2024 12:39 AM HOUSING MANAGEMENT OFFICER 04/07/2024 1:05 AM HOUSING MANAGEMENT OFFICER us Parmjit Berrios MD HEMATOLOGY Final Resul t Performing Organization Address [facility] Co de Phone Number [facility] [address] [place] [address], * Ferritin AM (04/07/2024 12:39 AM HOUSING MANAGEMENT OFFICER) FERRITIN 275.0 30.0 - 400.0 ng/mL 04/07/2024 1:58 AM HOUSING MANAGEMENT OFFICER [facility] Blood BLOOD SPECIMEN / Unknown Butterfly / Unknown 04/07/2024 12:39 AM HOUSING MANAGEMENT OFFICER 04/07/2024 1:05 AM HOUSING MANAGEMENT OFFICER us Parmjit Berrios MD CHEMISTRY Final Resul t Performing Organization Address [facility] Co de Phone Number [facility] [address] [place] [address], * (ABNORMAL) COMP METABOLIC PANEL (04/07/2024 12:39 AM HOUSING MANAGEMENT OFFICER) SODIUM 131(L) 136 - 145 mmol/L 04/07/2024 1:30 AM HOUSING MANAGEMENT OFFICER [facility] POTASSIUM 3.8 3.5 - 5.1 mmol/L 04/07/2024 1:30 AM HOUSING MANAGEMENT OFFICER [facility] CHLORIDE 86(L) 98 - 107 mmol/L 04/07/2024 1:30 AM HOUSING MANAGEMENT OFFICER [facility] CO2,TOTAL 23 22 - 29 mmol/L 04/07/2024 1:30 AM HOUSING MANAGEMENT OFFICER [facility] ANION GAP 22(H) 5 - 18 04/07/2024 1:30 AM [facility] GLUCOSE 110(H) 70 - 99 mg/dL 04/07/2024 1:30 AM [facility] CALCIUM 9.1 8.8 - 10.4 mg/dL 04/07/2024 1:30 AM [facility] Comment: Reference ranges for this test were updated on 01/06/2024 to reflect our healthy population more accurately. Reference range changes are not retroactively applied to results, but previous results using the same methodology can be interpreted in the context of the new reference range. BUN 94(H) 8 - 23 mg/dL 04/07/2024 1:30 AM [facility] CREATININE 2.41(H) 0.70 - 1.20 mg/dL 04/07/2024 1:30 AM [facility] BUN/CREAT RATIO 39(H) 10 - 20 1:30 AM [facility] eGFR 28(L) >90 mL/min/1. 73m2 04/07/2024 1:30 AM [facility] Comment:As of 2021, eG FR is calculated by the CKD-EPI creatinine equation without race adjustment. eGFR can be influenced by muscle mass, exercise, and diet. The reported eGFR is an estimation only and is only applicable if the renal function is stable. ALBUMIN 3.8(L) 4.0 - 4.9 g/dL 04/07/2024 1:30 AM [facility] LABOR[facility] PROTEIN,TOTAL 6.4 6.0 - 8.0 g/dL 04/07/2024 1:30 AM [facility] BILIRUBIN,TOTAL 0.7 0.0 - 1.2 mg/dL 04/07/2024 1:30 AM [facility] ALK PHOSPHATASE 96 40 - 129 IU/L 04/07/2024 1:30 AM [facility] ALT (SGPT) 9(L) 10 - 50 IU/L 04/07/2024 1:30 AM [facility] AST (SGOT) 22 10 - 50 IU/L 04/07/2024 1:30 AM HOUSING MANAGEMENT OFFICER [facility] Blood BLOOD SPECIMEN / Unknown Butterfly / Unknown 04/07/2024 12:39 AM HOUSING MANAGEMENT OFFICER 04/07/2024 1:05 AM HOUSING MANAGEMENT OFFICER us Guille Choi NP CHEMISTRY Final Result [facility] [address] [address], [place] * XR CHEST 1 VIEW PORTABLE (04/06/2024 8:19 PM HOUSING MANAGEMENT OFFICER) Anatomical Region Laterality Modality HEART, THORAX, CHEST Computed Ra diography 04/06/2024 8:19 PM HOUSING MANAGEMENT OFFICER Impressions 04/06/2024 8:48 PM HOUSING MANAGEMENT OFFICER Stable size of cardiomediastinal silhouette with pacemaker/AICD leads overlying the right atrium and right ventricle. Likely pulmonary vascular congestion with subtle interstitial opacities in the lung bases, right greater than left, differential includes mild edema and atypical infectious/inflammatory process. No definite pleural effusion or pneumothorax. No acute bony abnormality. Narrative 04/06/2024 8:48 PM HOUSING MANAGEMENT OFFICER For Patients: As a result of the Cures Act, medical imaging exams and procedure reports are released immediately into your electronic medical record. You may view this report before your referring provider. If you have questions, please contact your health care provider. EXAM: XR CHEST 1 VIEW PORTABLE LOCATION: [facility] DATE: 04/06/2024 INDICATION: Shortness of breath [...] EXAM: XR CHEST 1 VIEW PORTABLE LOCATION: [facility] DATE: 04/06/2024 INDICATION: Shortness of breath [...] * (ABNORMAL) TROPONIN I (04/06/2024 7:53 PM HOUSING MANAGEMENT OFFICER) Only the most recent of2 resultswithin the time period is included. Pathologist [facility] TROPONIN I KELLI 0.043(HH) <0.030 ng/mL 04/06/2024 8:31 PM HOUSING MANAGEMENT OFFICER [facility] Blood BLOOD SPECIMEN / Unknown Venipuncture / Unknown 04/06/2024 7:53 PM HOUSING MANAGEMENT OFFICER 04/06/2024 7:59 PM HOUSING MANAGEMENT OFFICER us John Ramirez MD CHEMISTRY Final Result [facility] [address] [place] [address], [place] [phone] * BEDSIDE US STUDY ARCHIVE (04/06/2024 3:07 PM HOUSING MANAGEMENT OFFICER) Narrative Charly Monroe MD - 04/06/2024 3:07 PM HOUSING MANAGEMENT OFFICER Jun Mar MD 04/06/2024 3:08 PM BEDSIDE [...] CBC WITH AUTO DIFFERENTIAL (04/06/2024 2:45 PM HOUSING MANAGEMENT OFFICER) Pathologist [facility] WHITE BLOOD COUNT 12.6 4.5 - 13.5 thou/cu mm 04/06/2024 3:10 PM HOUSING MANAGEMENT OFFICER [facility] RED BLOOD COUNT 4.39(L) 4.70 - 6.10 mil/cu mm 04/06/2024 3:10 PM [facility] HEMOGLOBIN 13.0(L) 13.5 - 17.5 g/dL 04/06/2024 3:10 PM [facility] HEMATOCRIT 39.5(L) 42.0 - 52.0 % 04/06/2024 3:10 PM [facility] MCV 90 80 - 94 fL 04/06/2024 3:10 PM [facility] MCH 29.6 27.0 - 31.0 pg 04/06/2024 3:10 PM [facility] MCHC 32.9(L) 33.0 - 36.0 g/dL 04/06/2024 3:10 PM [facility] RDW 17.4(H) 11.6 - 14.8 % 04/06/2024 3:10 PM [facility] PLATELET COUNT 341 130 - 400 thou/cu mm 04/06/2024 3:10 PM [facility] MPV 10.6(H) 7.4 - 10.4 fL 04/06/2024 3:10 PM [facility] NRBC 0.0 0.0 - 0.9 % 04/06/2024 3:10 PM [facility] % NEUT 85.1(H) 37.0 - 80.0 % 04/06/2024 3:10 PM [facility] % LYMPH 5.6(L) 10.0 - 50.0 % 04/06/2024 3:10 PM [facility] % MONO 6.8 0.0 - 12.0 % 04/06/2024 3:10 PM [facility] % EOS 0.6 0.0 - 7.0 % 04/06/2024 3:10 PM [facility] % BASO 0.4 0.0 - 2.5 % 04/06/2024 3:10 PM [facility] % IMMATURE GRAN (METAS,MYELOS,WA OS) 1.5 % 04/06/2024 3:10 PM HOUSING MANAGEMENT OFFICER [facility] ABSOLUTE NEUTROPHILS 10.7(H) 2.0 - 6.9 thou/cu mm 04/06/2024 3:10 PM HOUSING MANAGEMENT OFFICER [facility] ABSOLUTE LYMPHOCYTES 0.7 0.6 - 3.4 thou/cu mm 04/06/2024 3:10 PM HOUSING MANAGEMENT OFFICER [facility] ABSOLUTE MONOCYTES 0.9 0.0 - 1.0 thou/cu mm 04/06/2024 3:10 PM HOUSING MANAGEMENT OFFICER [facility] ABSOLUTE EOSINOPHILS 0.1 <=0.7 thou/cu mm 04/06/2024 3:10 PM HOUSING MANAGEMENT OFFICER [facility] ABSOLUTE BASOPHILS 0.1 <0.2 thou/cu mm 04/06/2024 3:10 PM HOUSING MANAGEMENT OFFICER [facility] ABSOLUTE IMMATURE GRANULOCYTES(MET ,MYELOS,PROS) 0.2 <0.3 thou/cu mm 04/06/2024 3:10 PM HOUSING MANAGEMENT OFFICER [facility] Blood BLOOD SPECIMEN / Unknown IV Start / Unknown 04/06/2024 2:45 PM HOUSING MANAGEMENT OFFICER 04/06/2024 3:00 PM HOUSING MANAGEMENT OFFICER Jun Mar MD HEMATOLOGY Final Result [facility] [address] [place] [address], * EXTRA TUBE GOLD/SST (04/06/2024 2:45 PM HOUSING MANAGEMENT OFFICER) Blood BLOOD SPECIMEN / Unknown Extra Tube / Unknown 04/06/2024 2:45 PM HOUSING MANAGEMENT OFFICER 04/06/2024 4:05 PM HOUSING MANAGEMENT OFFICER Charly Monroe MD LABORATORY Final Res ult [facility] [address] [place] [address], * TSH WITH REFLEX (04/06/2024 2:45 PM HOUSING MANAGEMENT OFFICER) TSH 3.73 0.35 - 4.94 uIU/mL 04/06/2024 3:43 PM HOUSING MANAGEMENT OFFICER [facility] Blood BLOOD SPECIMEN / Unknown IV Start / Unknown 04/06/2024 2:45 PM HOUSING MANAGEMENT OFFICER 04/06/2024 3:00 PM HOUSING MANAGEMENT OFFICER us Jun Mar MD CHEMISTRY Final Result Performing Organization Address [facility]/ZIP Co de Phone Number [facility] [address] [place] [address], * (ABNORMAL) BRAIN NATRIURETIC PEPTIDE (04/06/2024 2:45 PM HOUSING MANAGEMENT OFFICER) BRAIN JEANCARLOS PEPTIDE 993(H) <100 pg/mL 04/06/2024 3:30 PM HOUSING MANAGEMENT OFFICER [facility] Blood BLOOD SPECIMEN / Unknown IV Start / Unknown 04/06/2024 2:45 PM HOUSING MANAGEMENT OFFICER 04/06/2024 3:05 PM HOUSING MANAGEMENT OFFICER us Charly Monroe MD CHEMISTRY Final Res ult Performing Organization Address [facility]/ZIP Co de Phone Number [facility] [address] [place] [address], * SLIDE REVIEW (04/06/2024 2:45 PM HOUSING MANAGEMENT OFFICER) POIKILOCYTOSIS 1+ 04/06/2024 3:35 PM HOUSING MANAGEMENT OFFICER [facility] POLYCHROMASIA 1+ 04/06/2024 3:35 PM HOUSING MANAGEMENT OFFICER [facility] MORPHOLOGY COMMENT Ovalocytes Present 04/06/2024 3:35 PM HOUSING MANAGEMENT OFFICER [facility] MORPHOLOGY COMMENT Stomatocytes Present 04/06/2024 3:35 PM HOUSING MANAGEMENT OFFICER [facility] PLT COMMENT Adequate 04/06/2024 3:35 PM HOUSING MANAGEMENT OFFICER [facility] Blood BLOOD SPECIMEN / Unknown IV Start / Unknown 04/06/2024 2:45 PM HOUSING MANAGEMENT OFFICER 04/06/2024 3:00 PM HOUSING MANAGEMENT OFFICER us Jun Mar MD LABORATORY Final Result Performing Organization Address City/[facility]/ZIP Co de Phone Number [facility] [address] [place] [address], * (ABNORMAL) Heparin Level ( aka XA) (04/06/2024 2:45 PM HOUSING MANAGEMENT OFFICER) HEPARIN LEVEL <0.04(LL) 0.32 - 0.63 U/mL 04/06/2024 7:11 PM HOUSING MANAGEMENT OFFICER [facility] Blood BLOOD SPECIMEN / Unknown IV Start / Unknown 04/06/2024 2:45 PM HOUSING MANAGEMENT OFFICER 04/06/2024 6:09 PM HOUSING MANAGEMENT OFFICER us Jun Mar MD HEMATOLOGY Final Result Performing Organization Address City/[facility]/ZIP Co de Phone Number [facility] [address] [place] [address], * APTT (04/06/2024 2:45 PM HOUSING MANAGEMENT OFFICER) APTT 28 25 - 37 sec 04/06/2024 6:20 PM HOUSING MANAGEMENT OFFICER [facility] Blood BLOOD SPECIMEN / Unknown IV Start / Unknown 04/06/2024 2:45 PM HOUSING MANAGEMENT OFFICER 04/06/2024 6:09 PM HOUSING MANAGEMENT OFFICER Narrative [facility] - 04/06/2024 6:20 PM HOUSING MANAGEMENT OFFICER Therapeutic Range 64-83 seconds. us Jun Mar MD HEMATOLOGY Final Result Performing Organization Address City/[facility]/ZIP Co de Phone Number [facility] [address] [place] [address], * SCAN-CARDIAC STRIP (04/06/2024 12:00 AM HOUSING MANAGEMENT OFFICER) Narrative 04/06/2024 12:00 AM HOUSING MANAGEMENT OFFICER Ordered by an unspecified provider. Other Clinical Staff OTHER Final Resul t * SCAN-CARDIAC STRIP (04/06/2024 12:00 AM HOUSING MANAGEMENT OFFICER) Narrative 04/06/2024 12:00 AM HOUSING MANAGEMENT OFFICER Ordered by an unspecified provider. Other Clinical Staff OTHER Final Resul t * SCAN-CARDIAC STRIP (03/22/2024 12:00 AM HOUSING MANAGEMENT OFFICER) Narrative 03/22/2024 12:00 AM HOUSING MANAGEMENT OFFICER Ordered by an unspecified provider. us Other Clinical Staff OTHER Final Resul t * SCAN-CARDIAC STRIP (03/15/2024 12:00 AM HOUSING MANAGEMENT OFFICER) Narrative 03/15/2024 12:00 AM HOUSING MANAGEMENT OFFICER Ordered by an unspecified provider. us Other Clinical Staff OTHER Final Resul t * SCAN-CARDIAC STRIP (03/08/2024 12:00 AM HOUSING MANAGEMENT OFFICER) Narrative 03/08/2024 12:00 AM HOUSING MANAGEMENT OFFICER Ordered by an unspecified provider. us Other Clinical Staff OTHER Final Resul t * SCAN-CARDIAC STRIP (03/01/2024 12:00 AM HOUSING MANAGEMENT OFFICER) Narrative 03/01/2024 12:00 AM HOUSING MANAGEMENT OFFICER Ordered by an unspecified provider. us Other Clinical Staff OTHER Final Resul t * SCAN-CARDIAC STRIP (03/01/2024 12:00 AM HOUSING MANAGEMENT OFFICER) Narrative 03/01/2024 12:00 AM HOUSING MANAGEMENT OFFICER Ordered by an unspecified provider. us Other Clinical Staff OTHER Final Resul t * SCAN-CARDIAC STRIP (03/01/2024 12:00 AM HOUSING MANAGEMENT OFFICER) Narrative 03/01/2024 12:00 AM HOUSING MANAGEMENT OFFICER Ordered by an unspecified provider. us Other Clinical Staff OTHER Final Resul t * SCAN-CARDIAC STRIP (03/01/2024 12:00 AM HOUSING MANAGEMENT OFFICER) Narrative 03/01/2024 12:00 AM HOUSING MANAGEMENT OFFICER Ordered by an unspecified provider. us Other Clinical Staff OTHER Final Resul t * CT ABDOMEN PELVIS WO (01/16/2024 4:53 AM HOUSING MANAGEMENT OFFICER) Anatomical Region Laterality Modality Abdomen, Pelvis, AORTA, LIVER, SPLEEN Computed Tomography 01/16/2024 4:53 AM HOUSING MANAGEMENT OFFICER Impressions 01/16/2024 5:21 AM HOUSING MANAGEMENT OFFICER 1. No obstructing ureteral or bladder calculi. [...] fat-containing umbilical hernia. Narrative 01/16/2024 5:21 AM HOUSING MANAGEMENT OFFICER For Patients: As a result of the Cures Act, medical imaging exams and procedure reports are released immediately into your electronic medical record. You may view this report before your referring provider. If you have questions, please contact your health care provider. EXAM: CT ABDOMEN PELVIS WO LOCATION: [facility] DATE: 01/16/2024 INDICATION: Abdominal pain, acute, nonlocalized. [...] provider. EXAM: CT ABDOMEN PELVIS WO LOCATION: [facility] DATE: 01/16/2024 INDICATION: Abdominal pain, acute, nonlocalized. [...] 105 <=200 mg/dL 11/20/2023 3:06 PM CDT [facility] TRIGLYCERIDES 103 <150 mg/dL 11/20/2023 3:[address] [facility] HDL CHOLESTEROL 33(L) >40 mg/dL 3:06 PM CDT [facility] CHOL/HDL RATIO 3.18 <=4.00 11/20/2023 3:06 PM CDT [facility] LDL CHOLESTEROL 51 <=130 mg/dL 11/20/2023 3:06 PM CDT [facility] PATIENT STATUS NON-FASTI NG 11/20/2023 3:06 PM CDT [facility] Blood BLOOD SPECIMEN / Unknown Venipuncture / Unknown 11/20/2023 1:57 PM CDT 11/20/2023 2:09 PM CDT Shana Lozano DO CHEMISTRY Final Result [facility] [address] [place] [address], * CT CHEST SCREENING LOW DOSE WO [...] DOSE LUNG CANCER SCREENING CT CHEST LOCATION: [facility] DATE: 08/07/2023 INDICATION: Lung cancer screening. [...] DOSE LUNG CANCER SCREENING CT CHEST LOCATION: [facility] DATE: 08/07/2023 INDICATION: Lung cancer screening. [...] ve Non-React lisa 06/11/2022 4:14 PM CDT [facility] Comment:Antibodies to HCV no t detected; does not exclude the possibility of exposure to HCV. Blood BLOOD SPECIMEN / Unknown Venipuncture / Unknown 06/11/2022 2:16 PM CDT 06/11/2022 2:17 PM CDT Shananicolas Ariasa DO SEND OUTS Final Result Performing Organization Address City/[facility]/ZIP Co de Phone Number [facility] [address] [place] [address], [place] [phone] * HM COLONOSCOPY (08/14/2011) COLONOSCOPY Done [facility] 08/14/2011 Doctor Unknown HEALTH MAINT RESULTS Final Resul t Performing Organization Address City/[facility]/ZIP Co de Phone Number [facility] [address] [place] [address], [place] [phone] from Last 3 Months or Most Recently Relevant to Health Maintenance Insurance [facility] DUAL COMPLETE MEDICARE PART A HB ONLY [facility] MR [id number] [id number] [facility] Advance Directives Documents on File Type Date Recorded Patient Prospecting Observer Expl anation Healthcare Directive 04/20/2024 5:43 AM [...] Code Status Discussion: Reviewed 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
--- NOTE | 2024-05-22 14:36 | CRLHL7_ITS ---
For Patients: As a result of the Century Cures Act, medical imaging exams and procedure reports are released immediately into your electronic medical record. You may view this report before your referring provider. If you have questions, please contact your health care provider. Indication: Cough and weakness. Technique: Chest 1 view. Comparison: 05/16/2024. Findings/Impression: Heart and mediastinum: Stable cardiomegaly. Unremarkable mediastinum. Lungs and pleural spaces: Moderate central pulmonary vascular congestion. No pneumothorax. Lines and tubes: Unchanged ICD. Right-sided PICC in satisfactory position in the mid SVC. Dictated by Lior Spring MD @ 05/22/2024 3:51:56 PM (Electronically Signed)
--- NOTE | 2024-05-22 14:37 | ED_ITS ---
HPI - General Adult General Chief complaint: Weakness Stated complaint: weakness, n/v, headache Time Seen by Provider: 05/22/24 14:09 History of Present Illness HPI narrative: This 73-year-old male comes in with his grandson reporting generalized malaise with generalized weakness and report of headache with nausea and some vomiting. He was hospitalized about a week ago with similar complaints. He has chronic congestive heart failure with a reduced ejection fraction at about 20%. P revious hospitalization occurred about a week ago or less and the note states that he was considering hospice care at that time. He lives at home with his daughter and grandson. He has a history of atrial fibrillation but was cardioverted at some time in the past. He does continue to take warfarin. Related Data Home Medications ?Medication ?Instructions ?Recorded ?Confirmed ondansetron 4 mg disintegrating 4 mg PO Q8H PRN 05/11/24 05/17/24 tablet acetaminophen 500 mg tablet 1,000 mg PO HS 05/17/24 05/17/24 albuterol sulfate 90 mcg/actuation 2 puff inhalation Q6H PRN 05/17/24 05/17/24 aerosol inhaler amiodarone 200 mg tablet 200 mg PO DAILY 05/17/24 05/17/24 atorvastatin 40 mg tablet 40 mg PO DAILY 05/17/24 05/17/24 dobutamine See Rx Instructions .Route .COMPLEX 05/17/24 05/17/24 magnesium oxide 250 mg PO DAILY 05/17/24 05/17/24 meclizine 25 mg tablet 25 mg PO TID PRN 05/17/24 05/17/24 midodrine 2.5 mg tablet 2.5 mg PO TID 05/17/24 05/17/24 pantoprazole 40 mg tablet,delayed 40 mg PO BID 05/17/24 05/17/24 release pramipexole 0.25 mg tablet 0.125 mg PO HS 05/17/24 05/17/24 sennosides 8.6 mg tablet 8.6 - 17.2 mg PO BID 05/17/24 05/17/24 torsemide 20 mg tablet 20 mg PO DAILY PRN 05/17/24 05/17/24 warfarin 1 mg tablet 1 mg PO DAILY 05/17/24 05/17/24 Allergies Allergy/AdvReac Type Severity Reaction Status Date / Time codeine Allergy Severe dizzniness/ Verified 05/16/24 15:01 nausea Review of Systems Status of ROS: Reports: 10 or more systems reviewed and unremarkable except as noted in History and below Narrative: Constitutional: No fevers, no weight gain or loss. Eyes: No discharge. No vision changes. HENT: No congestion, no sore throat, no ear pain. Cardiovascular: No chest pain, no palpitations. Respiratory: No shortness of breath, no wheezes. Occasional cough. Gastrointestinal: No abdominal pain, no diarrhea. He reports nausea with occasional vomiting. Genitourinary: No dysuria, no hematuria. Musculoskeletal: Normal range of motion. Skin: No rashes, no pruritis. Neurological: No dizziness, weakness, sensory change, speech change. Endo/Heme/Allergies: No bruising or bleeding. No polydipsia. Pysch: no suicidality, no anxiety, no insomnia. All other systems reviewed and are negative. [facility] Medical History (Updated 05/22/24 @ 16:14 by Sadi Montgomery MD) History of tobacco use ?Z87.891 - Personal history of nicotine dependence (ICD-10) History of atrial fibrillation ?Z86.79 - Personal history of other diseases of the circulatory system (ICD- 10) Gout ?M10.9 - Gout, unspecified (ICD-10) Hyperlipidemia ?E78.5 - Hyperlipidemia, unspecified (ICD-10) Severe mitral regurgitation by prior echocardiogram ?I34.0 - Nonrheumatic mitral (valve) insufficiency (ICD-10) Chronic heart failure with reduced ejection fraction (HFrEF, <= 40%) ?I50.22 - Chronic systolic (congestive) heart failure (ICD-10) Pure hypercholesterolemia (12/07/20) ?E78.00 - Pure hypercholesterolemia, unspecified (ICD-10) Pulmonary emphysema (02/12/21) ?J43.9 - Emphysema, unspecified (ICD-10) Lactic acidosis (04/07/24) ?E87.20 - Acidosis, unspecified (ICD-10) Ischemic cardiomyopathy (12/07/20) ?I25.5 - Ischemic cardiomyopathy (ICD-10) Chronic kidney disease, stage 3b (06/19/23) ?N18.32 - Chronic kidney disease, stage 3b (ICD-10) Cardiogenic shock (04/07/24) ?R57.0 - Cardiogenic shock (ICD-10) Atrial fibrillation with rapid ventricular response (04/07/24) ?I48.91 - Unspecified atrial fibrillation (ICD-10) Acute renal failure superimposed on stage 3b chronic kidney disease (04/07/24) ?N17.9 - Acute kidney failure, unspecified (ICD-10) ?N18.32 - Chronic kidney disease, stage 3b (ICD-10) Acute on chronic systolic and diastolic heart failure, NYHA class 3 (04/07/24) ?I50.43 - Acute on chronic combined systolic (congestive) and diastolic (congestive) heart failure (ICD-10) Acute GI bleeding (04/07/24) ?K92.2 - Gastrointestinal hemorrhage, unspecified (ICD-10) Surgical History Status post appendectomy ?Z90.49 - Acquired absence of other specified parts of digestive tract (ICD- 10) Status post lumbar laminectomy ?Z98.890 - Other specified postprocedural states (ICD-10) Status post coronary artery stent placement ?Z95.5 - Presence of coronary angioplasty implant and graft (ICD-10) Family History Mother Breast cancer Father Colon cancer Social History Narrative: . Single. 2 children. Now lives with daughter and grandson. Recently moved from [place], where he was living alone, independently. Retired. Designates daughterChan, as medical decision maker if he is not able to speak on his own behalf, . DNR DNI resuscitation status. Follows with [facility]. Considering the possibility of hospice services. Former smoker. Does not drink alcohol. What is your current living situation?: I presently have a place to live Problems where you live: no known problems Problems where you live details: N/A In the past 12 months, utilities in danger of being shut off: no In past 12 months, lack of transportation kept you from medical appts, meetings, work, or getting things needed for daily living: no In the past 12 mos, have been you worried that your food would run out before you had money to buy more?: never true In the past 12 mos, the food you bought just didn't last and you didn't have money to buy more?: never true Highest level of school completed/degree received: Associate degree: occupational, technical, vocational program Smoking Status: Never smoker Do you use any of these nicotine containing products: None Second hand tobacco smoke exposure: No How often do you have a drink containing alcohol: never How often do you have six or more drinks on one occasion: Never AUDIT-C Alcohol total score: 0 Non-prescribed substance use: denies use Caffeine: No How often does anyone, including family, friends and others, physically hurt you : never How often does anyone, including family, friends and others, insult or talk down to you: never How often does anyone, including family, friends and others, threaten you with harm: never How often does anyone, including family, friends and others, scream or curse at you: never service: No Exam Narrative: Exam Narrative: Constitutional: Well-developed, well-nourished, no acute distress. HEENT: Normocephalic, atraumatic. Neck: Normal range of motion. Nontender. Supple. Heart: Regular. Normal rate. Intact distal pulses. Lungs: Clear to auscultation. No chest discomfort. No wheezes, rhonchi, or rales. Abdomen: Normal bowel sounds. Nontender. No rebound tenderness. Genitalia: Deferred. Back: No midline tenderness. Normal range of motion. Extremities: Normal range of motion. No injury. Skin: Intact. No rash. Warm. No erythema or pallor. Neurologic: No altered sensation. No weakness. Alert and oriented. Psychiatric: No suicidality. No anxiety or depression. No insomnia. Nursing notes and vitals signs are reviewed. Const: Vital Signs, click to edit/add: Vital Signs - 24 hr 05/22/24 14:02 05/22/24 14:15 05/22/24 14:17 Temperature 97.1 F L Pulse Rate 66 67 Pulse Rate [Apical ] 75 Respiratory Rate 16 9 L 9 L Blood Pressure 113/83 Blood Pressure [Le ft Upper Arm] 103/80 Pulse Oximetry 97 97 99 Oxygen Delivery Me thod Room Air 05/22/24 14:30 05/22/24 14:31 05/22/24 14:45 Temperature Pulse Rate 66 66 65 Pulse Rate [Apical ] Respiratory Rate 10 L 17 10 L Blood Pressure 110/78 Blood Pressure [Le ft Upper Arm] Pulse Oximetry 98 99 96 Oxygen Delivery Me thod Room Air 05/22/24 14:50 05/22/24 15:00 05/22/24 15:04 Temperature Pulse Rate 64 65 64 Pulse Rate [Apical ] Respiratory Rate 15 19 11 L Blood Pressure Blood Pressure [Le ft Upper Arm] Pulse Oximetry 95 98 94 Oxygen Delivery Me thod 05/22/24 15:15 05/22/24 15:19 05/22/24 15:30 Temperature Pulse Rate 65 68 Pulse Rate [Apical ] Respiratory Rate 15 14 16 Blood Pressure Blood Pressure [Le ft Upper Arm] Pulse Oximetry 99 97 Oxygen Delivery Me thod 05/22/24 15:45 Temperature Pulse Rate 61 Pulse Rate [Apical ] Respiratory Rate 6 L Blood Pressure Blood Pressure [Le ft Upper Arm] Pulse Oximetry 93 Oxygen Delivery Me thod Course Vital Signs Vital signs: Initial Vital Signs Temperature 97.1 F L 05/22/24 14:02 Temperature Source Temporal Artery Scan 05/22/24 14:02 Pulse Rate 75 05/22/24 14:02 Pulse Rhythm Regular 05/22/24 14:02 Respiratory Rate 16 05/22/24 14:02 Blood Pressure 103/80 05/22/24 14:02 Blood Pressure Mean 87 05/22/24 14:02 Pulse Oximetry 97 05/22/24 14:02 Oxygen Delivery Method Room Air 05/22/24 14:02 Vital Signs Temperature 97.1 F L 05/22/24 14:02 Pulse Rate 75 05/22/24 14:02 Respiratory Rate 16 05/22/24 14:02 Blood Pressure 103/80 05/22/24 14:02 Pulse Oximetry 97 05/22/24 14:02 Oxygen Delivery Method Room Air 05/22/24 14:02 Temperature 97.1 F L 05/22/24 14:02 Pulse Rate 61 05/22/24 15:45 Respiratory Rate 6 L 05/22/24 15:45 Blood Pressure 110/78 05/22/24 14:31 Pulse Oximetry 93 05/22/24 15:45 Oxygen Delivery Method Room Air 05/22/24 14:31 Medical Decision Making MDM Narrative Medical decision making narrative: This patient comes in reporting generalized weakness and some nausea symptoms. He was hospitalized about a week ago and I noted through reading some of those notes that he has significant heart failure with an ejection fraction of 20%. I also reviewed his current medications. These seem to be appropriate to optimize his heart failure has best as possible. X-ray and lab results acquired today are showing no new findings that need attention compared to previous results. The patient and his family were meeting with a social group worker to consider hospice care because he heard at his last echocardiogram about a month ago that he could have a few hours to live to up to of a few months or more. They were resistant or questioning hospice care because he would come off of those medicines as they would not be provided in hospice care. The patient states that he feels okay to return home. He is able to get up and get around but has symptoms of weakness and fatigue when doing so. He did receive an IV dose of Zofran here and has oral doses of the same medicine at home that can be used as needed to treat his nausea. Lab Data Labs: Lab Results 05/22/24 05/22/24 05/22/24 Range/Units 14:37 15:00 15:02 WBC 6.99 (4.50-11.00) K/uL RBC 4.38 (4.30-5.90) m/uL Hgb 11.8 L (13.5-17.5) gm/dL Hct 37.8 (37.0-53.0) % MCV 86 (80-100) fL MCH 27 (26-34) pg MCHC 31 L (32-36) gm/dL RDW Coeff of Dia 19.4 H (11.5-15.5) % Plt Count 263 (140-440) K/uL Neut % (Auto) 84.5 H (42.0-72.0) % Lymph % (Auto) 6.9 L (20-44) % Brooks % (Auto) 6.6 (0.0-11.0) % Eos % (Auto) 0.6 (0.0-7.0) % Baso % (Auto) 0.1 (0.0-3.0) % Neut # (Auto) 5.90 (1.7-7.0) K/uL Lymph # (Auto) 0.50 L (0.90-2.90) K/uL Brooks # (Auto) 0.50 (0.00-0.90) K/UL Eos # (Auto) 0.04 (0.00-0.50) K/uL Baso # (Auto) 0.01 (0.00-0.30) K/uL Abs Immat Gran (auto) 0.09 (0.00-0.30) K/uL Imm/Tot Granulo (auto) 1.3 % INR 2.57 H (0.91-1.10) Sodium 131 L (135-149) mmol/L Potassium 4.1 (3.6-5.1) mmol/L Chloride 98 (96-114) mmol/L Carbon Dioxide 19 L (20-32) mmol/L Anion Gap 14 (7-15) mEq/L BUN 48 H (7-30) mg/dL Creatinine 2.4 H (0.5-1.5) mg/dL Estimated Creat Clear 26.92 Estimated GFR 28 ml/min Glucose 93 (60-115) mg/dL Calcium 8.8 (8.4-10.6) mg/dL NT-Pro-B Natriuret Pep 45607 pg/mL SARS-CoV-2 (PCR) Negative SARS-CoV-2 (Negative) Influenza Type A (PCR) Negative PCR FLU A (Negative) Influenza Type B (PCR) Negative PCR FLU B (Negative) POC Troponin I 0.04 (0.01-0.04) ng/ml Imaging Data Chest x-ray: Radiologist's impression: Heart and mediastinum: Stable cardiomegaly. Unremarkable mediastinum. Lungs and pleural spaces: Moderate central pulmonary vascular congestion. No pneumothorax. Lines and tubes: Unchanged ICD. Right-sided PICC in satisfactory position in the mid SVC. ECG Data Attestation: I personally reviewed and interpreted this ECG as follows: Interpretation: Normal sinus rhythm. Rate is 63 beats per minute. Left bundle branch block. Discharge Plan Discharge Clinical Impression: Severe mitral regurgitation by prior echocardiogram, Heart failure, Nausea Patient Disposition: Home w/ Parent or Adult Condition: Unchanged Additional Instructions: Continue current medications. Use Zofran as needed for nausea symptoms. Follow up with primary physician and with social service for ongoing management options. Prescriptions: No Action ondansetron 4 mg tablet,disintegrating 4 mg PO Q8H PRN albuterol sulfate 90 mcg/actuation HFA aerosol inhaler 2 puff INHALATION Q6H PRN acetaminophen 500 mg tablet 1,000 mg PO HS Rx Instructions: Take 1,000 mg by mouth once daily in the evening. Max acetaminophen dose: 4000mg in 24 hrs. amiodarone 200 mg tablet 200 mg PO DAILY atorvastatin 40 mg tablet 40 mg PO DAILY warfarin 1 mg tablet 1 mg PO DAILY torsemide 20 mg tablet 20 mg PO DAILY PRN Rx Instructions: Take one tablet by mouth as needed for weight gain of 3 lb in 1 day or 5 lb in 1 week sennosides 8.6 mg tablet 8.6 - 17.2 mg PO BID pramipexole 0.25 mg tablet 0.125 mg PO HS pantoprazole 40 mg tablet,delayed release (DR/EC) 40 mg PO BID midodrine 2.5 mg tablet 2.5 mg PO TID magnesium oxide 250 mg magnesium tablet 250 mg PO DAILY meclizine 25 mg tablet 25 mg PO TID PRN dobutamine 4 mg/mL See Rx Instructions .ROUTE .COMPLEX Rx Instructions: 2 MCG/KG/MIN (79.5 KG), 9.6 MG/HR, 2.4 ML/HR VIA CADD PUMP Follow Up/Referrals: Sadi Paul MD [Primary Care Provider] - Stand Alone Forms: [employer] Info Instructions
--- OUTSIDE RECORDS SUMMARY | 2024-05-22 14:48 | XMS_ITS | Clinical Summary ---
Author Organization [facility] Address [address] [place] [address] Care Team Providers Care Hyperbaric Technologist Name Role Phone Gautam Louisa Ion Jones Unavailable [phone] Sadi Paul MD Primary Care Provider Allergies [...] meals. 90 Tablet 04/21/19 25 2:46 PM TEACHERS' ASSISTANT 025 Active pramipexole (MIRAPEX) 0.25 mg tabletIndications:Restl ess leg Take one-half Tablet (0.125 mg) by mouth at bedtime. 30 Tablet 04/21/19 25 2:46 PM TEACHERS' ASSISTANT 025 Active sennosides (SENNA) 8.6 mg tabletIndications:Other constipation Take 1 to 2 Tablets (8.6-17.2 mg) by mouth two times daily. 60 Tablet 04/21/19 25 2:46 PM TEACHERS' ASSISTANT 025 Active warfarin (COUMADIN) 1 mg tabletIndications:Atria l fibrillation with rapid ventricular response (HC) Take 1 Tablet (1 mg) by mouth once daily. Take 1mg daily. INR check on Sunday 04/23. Further dosing instructions pending INR value at that time. 30 Tablet 04/21/19 25 2:46 PM TEACHERS' ASSISTANT 025 Active midodrine (PROAMATINE) 2.5 mg tabletIndications:Hypot ension, unspecified hypotension type Take 1 tablet (2.5mg) by mouth three times daily (at 8AM, 12PM, and 4PM) 90 Tablet 04/21/19 25 2:46 PM TEACHERS' ASSISTANT 025 Active amiodarone (CORDARONE) 200 mg tabletIndications:Atria l fibrillation with rapid ventricular response (HC) Take 1 tablet (200 mg) by mouth twice daily. Then on 05/02/24 decrease to 200 mg once daily 90 Tablet 1 04/21/19 2:46 PM TEACHERS' ASSISTANT 025 Active torsemide (DEMADEX) 20 mg tabletIndications:Acute on chronic systolic and diastolic heart failure, NYHA class 3 (HC) Take one tablet by mouth as needed for weight gain of 3 lb in 1 day or 5 lb in 1 week 30 Tablet 2 04/21/19 5:30 PM TEACHERS' ASSISTANT 025 Active atorvastatin (LIPITOR) 40 mg tabletIndications:Pure hypercholesterolemia Take 1 Tablet (40 mg) by mouth once daily. 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 05/26/2013 Other B-complex deficiencies [...] Coronary atherosclerosis of unspecified type of vessel, lime or graft 02/11/2013 03/17/2017 Chest pain, unspecified 01/19/201303/03 Acute bronchitis 06/01/2012 03/17/2017 Acute conjunctivitis, unspecified 05/01/2012 03/17/2017 Other and unspecified noninf ectious gastroenteritis and colitis(558.9) 08/28/201103/17 Leukocytosis, unspecified 02/14/2011 Blood in stool 02/14/2011 03/17/2017 Acute gastritis without mention of hemorrhage 02/12/2003/17/2017 Encounters Date Type Department Care Team Description 05/22/19 1:15 PM CDT Home Care Visit [facility] [address] [place] [phone] Nicolas Sanz, PT PT - REASSESSMENT 05/22/19 11:30 AM CDT Home Care Visit P[facility] [address] [place] [phone] Valentina Riley RN SN - LONG VISIT (>90 MINUTES) 05/22/19 Anticoagulation (warfarin) [facility] [address] [place] [address] Shana Lozano, DO Anticoagulation 05/21/19 2:45 PM CDT Home Care Visit Pending [facility] [address] [place] [address], [place] [address] Joceline Edouard BUS AIDE - HOME VISIT 05/20/19 25 Home Care Visit [facility] [address] [place] [address], [place] [phone] Valentina Riley, AMELIA CARE COORDINATION 05/20/19 25 Home Care Visit [facility] [address] [place] [phone] Tiffany Fang, OT PARIKH SUPERVISION 05/19/19 25 Home Care Visit [facility] [address] [place] [phone] Edis Camargo, PSYCHOLOGY ASSOCIATE CARE COORDINATION 05/18/19 25 Home Care Visit [facility] [address] [place] [phone] Valentina Riley, TEAM ASSEMBLER NOTE 05/15/19 25 Travel 05/15/19 25 Home Care Visit [facility] [address] [place] [phone] Monisha Yo, PARIKH CARE COORDINATION 05/14/19 25 4:00 PM CDT Home Care Visit [facility] [address] [place] [phone] Joceline Edouard BUS AIDE - HOME VISIT 05/14/19 25 1:00 PM CDT Home Care Visit [facility] [address] [place] [phone] Valentina Riley, RN SN - LONG VISIT (>90 MINUTES) 05/14/19 25 Telephone [facility] [address], [place] [phone] Valentina Riley, nurse sitter 05/12/19 25 10:30 AM CDT Home Care Visit P[facility] [address] [place] [phone] Nicolas Sanz, PT PT - HOME VISIT 05/12/19 25 Home Care Visit [facility] [address] [place] [phone] Edis Camargo, PSYCHOLOGY ASSOCIATE CARE COORDINATION 05/12/19 Travel 05/11/19 3:00 PM CDT Home Care Visit [facility] [address] [place] [address], [place] [address] Joceline Edouard BUS AIDE - HOME VISIT 05/11/19 11:00 AM CDT Home Care Visit [facility] [address] [place] [phone] Valentina Riley, AMELIA SN - HOME VISIT 05/10/19 Nurse Triage [facility] [address] [phone] Shana Lozano, DO Home Care; Diarrhea 05/08/19 4:00 PM TEACHERS' ASSISTANT Home Care Visit Pending [facility] [address] [place] [phone] Joceline Edouard BUS AIDE - HOME VISIT 05/08/19 10:30 AM TEACHERS' ASSISTANT Home Care Visit Pending [facility] [address] [place] [phone] Nicolas Sanz, PT PT - HOME VISIT 05/07/19 1:30 PM TEACHERS' ASSISTANT Home Care Visit [facility]ending [facility] [address] [place] [phone] Valentina Riley, AMELIA SN - LONG VISIT (>90 MINUTES) 05/07/19 Telephone [facility] [address] [phone] Valentina Riley, nurse sitter 05/05/19 1:30 PM TEACHERS' ASSISTANT Home Care Visit Pending [facility] [address] [place] [phone] Tiffany Fang, OT OT - HOME VISIT 05/05/19 10:30 AM TEACHERS' ASSISTANT Home Care Visit [facility]ending [facility] [address] [place] [phone] Nicolas Sanz, PT PT - HOME VISIT 05/05/19 9:30 AM TEACHERS' ASSISTANT Home Care Visit Pending [facility] [address] [place] [address] Joceline Edouard BUS AIDE - HOME VISIT 05/05/19 Travel 05/04/19 1:00 PM TEACHERS' ASSISTANT Home Care Visit Pending [facility] [address] [place] [phone] Valentina Riley RN SN - LONG VISIT (>90 MINUTES) 05/04/19 8:30 AM TEACHERS' ASSISTANT Office Visit [facility] [address] [facility] [address] [place] [address] Lauro Kendall MD Follow Up (POST HOSPITAL FOLLOW UP. LABS DONE PRIOR AT HOME HEALTH CARE./PT states feeling OK/no cardiac symptoms today /Establish care ) 05/04/19 Travel 04/30/19 2:30 PM TEACHERS' ASSISTANT Home Care Visit [facility]ending [facility] [address] [place] [phone] Nicolas Sanz, PT PT - HOME VISIT 04/30/19 Telephone [place] [phone] Shana Lozano, DO Weight (Weight gain) 04/30/19 Travel 04/29/19 12:30 PM TEACHERS' ASSISTANT Home Care Visit [facility]ending [facility] [address] [place] [phone] Valentina Riley RN SN - LONG VISIT (>90 MINUTES) 04/29/19 Home Care Visit [facility] [address] [place] [phone] Nicolas Sanz, PT CARE COORDINATION 04/28/19 3:00 PM TEACHERS' ASSISTANT Home Care Visit [facility] [address] [place] [phone] Nicolas Sanz, PT PT - INITIAL ASSESSMENT 04/28/19 9:00 AM TEACHERS' ASSISTANT Home Care Visit [facility] [address] [place] [phone] Anabella Rico LPN MULTIMEDIA DESIGNER - HOME VISIT 04/28/19 Telephone [facility] [address] [place], [place] [phone] Shana Lozano DO Questions (Verbal orders) 04/28/19 Travel 04/27/19 1:00 PM TEACHERS' ASSISTANT Home Care Visit [facility] [address] [facility] [phone] Tiffany Fang OT OT - INITIAL ASSESSMENT 04/27/19 11:30 AM TEACHERS' ASSISTANT Anticoagulation (warfarin) [facility] [address] [place] [address] Anticoagulation 04/27/19 9:40 AM TEACHERS' ASSISTANT Office Visit [facility] [address] [place] [address] Shana Lozano DO Hospital F/U (04/06/2024-04/21/2024 Afib with RVR) 04/27/19 Travel 04/26/19 Telephone [place] [address] [place] [address] Ignacio Willett MD Care Coordination (EP called and spoke with patient who reports that he moved in with his daughter which is 100 miles from [facility]. EP confirmed with patient that he would be discharged from CR at [facility]. Pt confirmed he would check out places near for CR as needed. ) 04/26/19 Orders Only [facility] [address] [place] [address] Shana Lozano DO <No scans attached> 04/26/19 Orders Only [facility] [address] [place] [address] Shana Lozano DO <No scans attached> 04/25/19 1:00 PM TEACHERS' ASSISTANT Home Care Visit [facility] [address] [facility] [place] [address] Staci Lara RN SN - HOME VISIT 04/23/19 1:45 PM TEACHERS' ASSISTANT Home Care Visit [facility] [address] [facility] [place] [address] Joceline Edouard BUS AIDE - HOME VISIT 04/23/19 25 1:00 PM TEACHERS' ASSISTANT Home Care Visit [facility]ending [facility] [address] [place] [phone] Valentina Riley, AMELIA SN - LONG VISIT (>90 MINUTES) 04/23/19 25 9:00 AM TEACHERS' ASSISTANT Anticoagulation (warfarin) [facility] [address] [place] [address] Anticoagulation 04/23/19 25 Orders Only [facility] [address] [place] [address] Shana Lozano, DO Lab 04/23/19 25 Orders Only [facility] [address] [place] [phone] Shana Lozano DO Lab (Home care) 04/23/19 25 Orders Only [facility] [address] [place] [address] Abi Valdovinos, AIRCRAFT SYSTEMS TECHNICIAN <No scans attached> 04/23/19 25 Travel 04/22/19 25 1:00 PM TEACHERS' ASSISTANT Home Care Visit [facility]ending [facility] [address] [place] [phone] Valentina Riley RN SN IV - START OF CARE 04/22/19 25 Plan of Care Documentation Pending [facility] [address] [place] [phone] 04/22/19 25 Telephone [facility] [address] [place] [address] Valentina Riley, nurse sitter 04/22/19 25 Telephone [facility] [address] [place] [address] Shana Lozano, DO Outside Order (WALKER / PORTABLE URINAL ) 04/22/19 25 Home Care Visit [facility] [address] [place] [phone] Valentina Riley, RN CARE COORDINATION 04/22/19 25 Telephone [facility] [address] [place] [address] Ignacio Willett MD Care Coordination (EP attempted phone contact with patient to touch base regarding cardiac rehab plan. No answer and VM is full. EP to follow-up as needed. ) 04/21/19 25 Telephone [facility] [address] [place] [address] Shana Lozano DO Anticoagulation 04/19/19 25 Telephone [facility] [address] [place] [address] Shana Lozano DO Questions (Home care orders ) 04/17/19 25 Refill [facility] [address] [place] [address] Ignacio Willett MD Refill Request (Isosorbide Mononitrate) 04/12/19 25 10:26 AM TEACHERS' ASSISTANT Anesthesia Event [facility] [address] [place] [address] Gerardo Garza MD Schlatter, Charles Patrick, TYPESETTERS PRINTER 04/08/19 25 12:21 PM TEACHERS' ASSISTANT Anesthesia Event [facility] [address] [place] [address] Leonardo Campbell MD Reiter, Kyle, TYPESETTERS PRINTER 04/08/19 25 11:26 AM TEACHERS' ASSISTANT - 04/08/19 25 12:12 PM TEACHERS' ASSISTANT Surgery [facility] [address] [place] [address] Chepe Francis MD ESOPHAGOGASTRODUODENOSCOPY WITH GASTRIC BIOPSY 04/06/19 25 11:21 PM TEACHERS' ASSISTANT - 04/21/19 25 5:55 PM TEACHERS' ASSISTANT Hospital Encounter [facility] [address] [place] [address] Associates, w General Medicine [facility]it Berrios MD Mrkvicka, [...] Discharge Disposition: Home Health 04/06/19 2:41 PM TEACHERS' ASSISTANT - 04/06/19 10:17 PM TEACHERS' ASSISTANT Emergency [address] [address] Charly Monroe MD Binder, Jacob A, MD Atrial fibrillation, unspecified type (HC) (Primary Dx); Hypotension, unspecified hypotension type; Lightheadedness; DAVID (acute kidney injury) Discharge Disposition: Short Term/PPS Hosp 04/06/19 1:56 PM TEACHERS' ASSISTANT - 04/06/19 2:40 PM TEACHERS' ASSISTANT Hospital Encounter [address] [address] Ignacio Willett MD 04/06/19 Telephone [facility] [address] [place] [phone] Lukasz Bright MD 04/06/19 25 Travel 04/05/19 Telephone [facility] [address] [place] [address] Ignacio Willett MD Atrial Fibrillation 03/30/19 25 1:47 PM TEACHERS' ASSISTANT - 03/30/19 25 11:59 PM TEACHERS' ASSISTANT Hospital Encounter [address] [address] Ignacio Willett MD 03/30/19 25 Travel 03/24/19 25 1:00 PM TEACHERS' ASSISTANT - 03/24/19 25 11:59 PM TEACHERS' ASSISTANT Hospital Encounter [address] [address] Ignacio Willett MD 03/24/19 25 Travel 03/22/19 25 1:00 PM TEACHERS' ASSISTANT - 03/22/19 25 11:59 PM TEACHERS' ASSISTANT Hospital Encounter [address] [address] Ignacio Willett MD 03/22/19 25 Travel 03/15/19 25 12:50 PM TEACHERS' ASSISTANT - 03/15/19 25 11:59 PM TEACHERS' ASSISTANT Hospital Encounter [address] [address] Ignacio Willett MD 03/15/19 25 Travel 03/10/19 25 12:50 PM TEACHERS' ASSISTANT - 03/10/19 25 11:59 PM TEACHERS' ASSISTANT Hospital Encounter [address] [address] Ignacio Willett MD 03/10/19 25 Travel 03/08/19 25 1:00 PM TEACHERS' ASSISTANT - 03/08/19 25 11:59 PM TEACHERS' ASSISTANT Hospital Encounter [address] [address] Ignacio Willett MD 03/08/19 25 Travel 03/01/20 24 1:29 PM TEACHERS' ASSISTANT - 03/01/20 24 11:59 PM TEACHERS' ASSISTANT Hospital Encounter [address] [address] Ignacio Willett MD Ischemic cardiomyopathy; CAD, multiple vessel; Dyslipidemia; Congestive heart failure, unspecified HF chronicity, unspecified heart failure type (HC) 03/01/20 24 Orders Only [address] [address] Ignacio Willett MD <No scans attached> from [...] on file Legal Sex Male 5:26 PM TEACHERS' ASSISTANT Gender Identity Not on file Sexual Orientation [...] 175.3 cm (5' 9) 05/03/2024 8:40 AM TEACHERS' ASSISTANT Body Mass Index 25.84 05/03/2024 8:40 AM TEACHERS' ASSISTANT Plan of Treatment Upcoming Encounters Date Type Department Care Team (Late st Contact Info) Description 05/24/2024 2:30 PM CDT Home Care Visit Pending [facility] [address] [place] [phone] Joceline Edouard 05/25/2024 5:00 AM CDT Home Care Visit Pending [facility] [address] [place] [phone] Tiffany Fang, OT [address] [place] [address] 05/26/2024 9:30 AM CDT Home Care Visit [facility] [address] [place] [phone] Valentina Riley, AMELIA 05/27/2024 2:45 PM CDT Home Care Visit [facility]ending [facility] [address] [place] [phone] Joceline Edouard 05/28/2024 4:00 AM CDT Home Care Visit [place] [id number] [place] [phone] Valentina Riley, AMELIA 05/29/2024 3:00 AM CDT Home Care Visit [address] [phone] Nicolas Sanz, PT [address] [place], [place] [phone] 06/01/2024 4:00 AM CDT Home Care Visit [place] [id number] [place] [phone] Joceline Edouard 06/01/2024 10:30 AM CDT Home Care Visit [place] [id number] [place] [phone] Valentina Riley, AMELIA 06/03/2024 4:00 AM CDT Home Care Visit [address] [phone] Joceline Edouard 06/03/2024 8:35 AM CDT Office Visit [facility] [place] [address] [place] [address] 06/04/2024 4:00 AM CDT Home Care Visit [address] [phone] Valentina Riley, RN 06/07/2024 4:00 AM CDT Home Care Visit [facility] [address] [place] [address] Valentina Riley, RN 06/08/2024 4:00 AM CDT Home Care Visit [facility]ending [facility] [address] [place] [address] Joceline Edouard L 06/08/2024 8:30 AM CDT Office Visit [facility] [address] [facility] [address] [place] [address] Lauro Kendall MD [address] [facility] [address] [place] [address] 06/10/2024 4:00 AM CDT Home Care Visit [facility] [address] [place] [address] Joceline Edouard 06/11/2024 4:00 AM CDT Home Care Visit [facility] [address] [place] [phone] Valentina Riley, RN 06/14/2024 1:00 PM CDT Home Care Visit [facility] [address] [place] [phone] Valentina Riley, RN 06/15/2024 4:00 AM CDT Home Care Visit [facility] [address] [place] [phone] Joceline Edouard 06/16/2024 1:00 PM CDT Home Care Visit [facility] [address] [place] [phone] Valentina Riley, RN 06/17/2024 4:00 AM CDT Home Care Visit [facility]ending [facility] [address] [place] [phone] Joceline Edouard 06/18/2024 1:00 PM CDT Appointment [facility]ending [facility] [address] [facility] [place] [address] Valentina Riley, RN Health Maintenance Due Date [...] Diagnosis Comments PROTIME-INR Routine 04/27/2024 10:26 AM TEACHERS' ASSISTANT Ischemic cardiomyopathy PRO-BNP Routine 04/27/2024 10:26 AM TEACHERS' ASSISTANT Acute systolic heart failure (HC) BASIC METABOLIC PANEL Routine 04/27/2024 10:26 AM TEACHERS' ASSISTANT Acute systolic heart failure (HC) PROTIME-INR Routine 04/23/2024 1:40 PM TEACHERS' ASSISTANT Atrial fibrillation with rapid ventricular response (HC) BASIC METABOLIC PANEL Early AM 04/21/2024 6:15 AM TEACHERS' ASSISTANT HEPATIC FUNCTION PANEL Early AM 6:15 AM TEACHERS' ASSISTANT PROTIME-INR Early AM 04/21/2024 6:15 AM TEACHERS' ASSISTANT SCAN-CARDIAC STRIP 04/20/2024 11:03 PM TEACHERS' ASSISTANT SCAN-CARDIAC STRIP 04/20/2024 7:32 PM TEACHERS' ASSISTANT CBC W PLT NO DIFF Early AM 04/20/2024 7:04 AM TEACHERS' ASSISTANT MAGNESIUM Early AM 04/20/2024 7:04 AM TEACHERS' ASSISTANT BASIC METABOLIC PANEL Early AM 04/20/2024 7:04 AM TEACHERS' ASSISTANT HEPATIC FUNCTION PANEL Early AM 7:04 AM TEACHERS' ASSISTANT PROTIME-INR Early AM 04/20/2024 7:04 AM TEACHERS' ASSISTANT O2 SATURATION,MEASURED Early AM 6:22 AM TEACHERS' ASSISTANT SCAN-CARDIAC STRIP 04/19/2024 7:23 PM TEACHERS' ASSISTANT SCAN-CARDIAC STRIP 04/19/2024 1:45 PM TEACHERS' ASSISTANT MAGNESIUM Early AM 04/19/2024 6:57 AM TEACHERS' ASSISTANT BASIC METABOLIC PANEL Early AM 04/19/2024 6:57 AM TEACHERS' ASSISTANT HEMOGLOBIN Early AM 04/19/2024 6:57 AM TEACHERS' ASSISTANT HEPATIC FUNCTION PANEL Early AM 6:57 AM TEACHERS' ASSISTANT PROTIME-INR Early AM 04/19/2024 6:57 AM TEACHERS' ASSISTANT O2 SATURATION,MEASURED Early AM 6:11 AM TEACHERS' ASSISTANT SCAN-CARDIAC STRIP 04/18/2024 10:04 PM TEACHERS' ASSISTANT SCAN-CARDIAC STRIP 04/18/2024 5:43 PM TEACHERS' ASSISTANT MAGNESIUM Timed 04/18/2024 4:33 PM TEACHERS' ASSISTANT POTASSIUM Timed 04/18/2024 12:45 PM TEACHERS' ASSISTANT O2 SATURATION,MEASURED Early AM 8:11 AM TEACHERS' ASSISTANT SCAN-CARDIAC STRIP 04/18/2024 7:46 AM TEACHERS' ASSISTANT MAGNESIUM Early AM 04/18/2024 7:07 AM TEACHERS' ASSISTANT BASIC METABOLIC PANEL Early AM 04/18/2024 7:07 AM TEACHERS' ASSISTANT HEPATIC FUNCTION PANEL Early AM 7:07 AM TEACHERS' ASSISTANT PROTIME-INR Early AM 04/18/2024 7:07 AM TEACHERS' ASSISTANT SCAN-CARDIAC STRIP 04/17/2024 11:49 PM TEACHERS' ASSISTANT SCAN-CARDIAC STRIP 04/17/2024 9:12 PM TEACHERS' ASSISTANT SCAN-CARDIAC STRIP 04/17/2024 7:41 AM TEACHERS' ASSISTANT MAGNESIUM RUSH 04/17/2024 7:26 AM TEACHERS' ASSISTANT BASIC METABOLIC PANEL Early AM 04/17/2024 7:26 AM TEACHERS' ASSISTANT HEPATIC FUNCTION PANEL Early AM 7:26 AM TEACHERS' ASSISTANT PROTIME-INR Early AM 04/17/2024 7:26 AM TEACHERS' ASSISTANT O2 SATURATION,MEASURED Early AM 6:35 AM TEACHERS' ASSISTANT SCAN-CARDIAC STRIP 04/16/2024 11:25 PM TEACHERS' ASSISTANT POTASSIUM Timed 04/16/2024 5:20 PM TEACHERS' ASSISTANT O2 SATURATION,MEASURED Timed 3:06 PM TEACHERS' ASSISTANT ALK PHOSPHATASE Today 04/16/2024 10:19 AM TEACHERS' ASSISTANT BILIRUBIN DIRECT Today 04/16/2024 10:19 AM TEACHERS' ASSISTANT ALT (SGPT) Today 04/16/2024 10:19 AM TEACHERS' ASSISTANT AST (SGOT) Today 04/16/2024 10:19 AM TEACHERS' ASSISTANT POTASSIUM Early AM 04/16/2024 10:19 AM TEACHERS' ASSISTANT SCAN-CARDIAC STRIP 04/16/2024 8:23 AM TEACHERS' ASSISTANT HEMOGLOBIN Early AM 04/16/2024 8:09 AM TEACHERS' ASSISTANT HEPATIC FUNCTION PANEL Early AM 8:09 AM TEACHERS' ASSISTANT CREATININE Early AM 04/16/2024 8:09 AM TEACHERS' ASSISTANT SODIUM Early AM 04/16/2024 8:09 AM TEACHERS' ASSISTANT MAGNESIUM Early AM 04/16/2024 8:09 AM TEACHERS' ASSISTANT O2 SATURATION,MEASURED Early AM 6:31 AM TEACHERS' ASSISTANT SCAN-CARDIAC STRIP 04/16/2024 1:03 AM TEACHERS' ASSISTANT SCAN-CARDIAC STRIP 04/15/2024 8:37 PM TEACHERS' ASSISTANT O2 SATURATION,MEASURED Today 6:58 PM TEACHERS' ASSISTANT POTASSIUM Timed 04/15/2024 5:26 PM TEACHERS' ASSISTANT EKG 12 LEAD RUSH 04/15/2024 12:31 PM TEACHERS' ASSISTANT PROTIME-INR Early AM 04/15/2024 11:55 AM TEACHERS' ASSISTANT POTASSIUM Timed 04/15/2024 11:55 AM TEACHERS' ASSISTANT O2 SATURATION,MEASURED RUSH 8:07 AM TEACHERS' ASSISTANT GLUCOSE METER Timed 04/15/2024 7:49 AM TEACHERS' ASSISTANT SCAN-CARDIAC STRIP 04/15/2024 7:26 AM TEACHERS' ASSISTANT HEMOGLOBIN Early AM 04/15/2024 6:38 AM TEACHERS' ASSISTANT BASIC METABOLIC PANEL Early AM 04/15/2024 6:38 AM TEACHERS' ASSISTANT MAGNESIUM Early AM 04/15/2024 6:38 AM TEACHERS' ASSISTANT HEPATIC FUNCTION PANEL Early AM 6:38 AM TEACHERS' ASSISTANT SCAN-CARDIAC STRIP 04/15/2024 3:06 AM TEACHERS' ASSISTANT SCAN-CARDIAC STRIP 04/14/2024 9:43 PM TEACHERS' ASSISTANT GLUCOSE METER Timed 04/14/2024 9:05 PM TEACHERS' ASSISTANT GLUCOSE METER Timed 04/14/2024 4:15 PM TEACHERS' ASSISTANT SCAN-CARDIAC STRIP 04/14/2024 3:27 PM TEACHERS' ASSISTANT ICD ANALYSIS DUAL WITHOUT REPROGRAM Routine 04/14/2024 3:13 PM TEACHERS' ASSISTANT EKG 12 LEAD RUSH 04/14/2024 1:25 PM TEACHERS' ASSISTANT GLUCOSE METER Timed 04/14/2024 12:04 PM TEACHERS' ASSISTANT POTASSIUM Timed 04/14/2024 11:49 AM TEACHERS' ASSISTANT GLUCOSE METER Timed 04/14/2024 7:53 AM TEACHERS' ASSISTANT SCAN-CARDIAC STRIP 04/14/2024 7:21 AM TEACHERS' ASSISTANT URINALYSIS MICROSCOPIC Timed 6:29 AM TEACHERS' ASSISTANT BASIC METABOLIC PANEL Early AM 04/14/2024 6:29 AM TEACHERS' ASSISTANT MAGNESIUM Early AM 04/14/2024 6:29 AM TEACHERS' ASSISTANT HEPATIC FUNCTION PANEL Early AM 6:29 AM TEACHERS' ASSISTANT O2 SATURATION,MEASURED Timed 6:29 AM TEACHERS' ASSISTANT UA W/ SEDIMENT EXAM REFLEXED PER CRITERIA Today 04/14/2024 6:29 AM TEACHERS' ASSISTANT GLUCOSE METER Timed 04/13/2024 9:23 PM TEACHERS' ASSISTANT SCAN-CARDIAC STRIP 04/13/2024 8:03 PM TEACHERS' ASSISTANT PICC LINE Routine 04/13/2024 7:28 PM TEACHERS' ASSISTANT INSERT PICC LINE Routine 04/13/2024 7:20 PM TEACHERS' ASSISTANT GLUCOSE METER Timed 04/13/2024 5:07 PM TEACHERS' ASSISTANT SCAN-CARDIAC STRIP 04/13/2024 3:12 PM TEACHERS' ASSISTANT ICD ANALYSIS DUAL WITHOUT REPROGRAM Routine 04/13/2024 1:57 PM TEACHERS' ASSISTANT EKG 12 LEAD Today 04/13/2024 8:25 AM TEACHERS' ASSISTANT GLUCOSE METER Timed 04/13/2024 7:41 AM TEACHERS' ASSISTANT SCAN-CARDIAC STRIP 04/13/2024 7:35 AM TEACHERS' ASSISTANT HEPATIC FUNCTION PANEL Early AM 6:43 AM TEACHERS' ASSISTANT HEMOGLOBIN Early AM 04/13/2024 6:43 AM TEACHERS' ASSISTANT BASIC METABOLIC PANEL Early AM 04/13/2024 6:43 AM TEACHERS' ASSISTANT GLUCOSE METER Timed 04/12/2024 9:16 PM TEACHERS' ASSISTANT GLUCOSE METER Timed 04/12/2024 6:39 PM TEACHERS' ASSISTANT COMPREHENSIVE BLOOD GAS MIXE D VENOUS Timed 04/12/2024 4:48 PM TEACHERS' ASSISTANT CVL OTHER PROCEDURE Routine 04/12/2024 4:09 PM TEACHERS' ASSISTANT Cardiovascular symptoms SCAN-CARDIAC STRIP 04/12/2024 3:27 PM TEACHERS' ASSISTANT US RENAL AND BLADDER COMPLETE Routine 2:51 PM TEACHERS' ASSISTANT GLUCOSE METER Timed 04/12/2024 11:55 AM TEACHERS' ASSISTANT ECHO NOEL WO CONTRAST W COLOR W LTD DOPPLER Routine 04/12/2024 10:52 AM TEACHERS' ASSISTANT EKG 12 LEAD Post Op 04/12/2024 10:49 AM TEACHERS' ASSISTANT EP OTHER PROCEDURE Routine 04/12/2024 10:48 AM TEACHERS' ASSISTANT GLUCOSE METER Timed 04/12/2024 7:30 AM TEACHERS' ASSISTANT HEPATIC FUNCTION PANEL RUSH 6:31 AM TEACHERS' ASSISTANT BASIC METABOLIC PANEL Early AM 04/12/2024 6:31 AM TEACHERS' ASSISTANT MAGNESIUM Early AM 04/12/2024 6:31 AM TEACHERS' ASSISTANT SCAN-CARDIAC STRIP 04/12/2024 3:46 AM TEACHERS' ASSISTANT SCAN-OPERATIVE/PROCEDURE REPORT 04/12/2024 12:00 AM TEACHERS' ASSISTANT GLUCOSE METER Timed 04/11/2024 9:47 PM TEACHERS' ASSISTANT SCAN-CARDIAC STRIP 04/11/2024 8:21 PM TEACHERS' ASSISTANT GLUCOSE METER Timed 04/11/2024 5:24 PM TEACHERS' ASSISTANT SCAN-CARDIAC STRIP 04/11/2024 4:18 PM TEACHERS' ASSISTANT GLUCOSE METER Timed 04/11/2024 11:31 AM TEACHERS' ASSISTANT HEMOGLOBIN Today 04/11/2024 10:12 AM TEACHERS' ASSISTANT MAGNESIUM RUSH 04/11/2024 10:12 AM TEACHERS' ASSISTANT BASIC METABOLIC PANEL Early AM 04/11/2024 10:12 AM TEACHERS' ASSISTANT SCAN-CARDIAC STRIP 04/11/2024 7:48 AM TEACHERS' ASSISTANT GLUCOSE METER Timed 04/11/2024 7:44 AM TEACHERS' ASSISTANT GLUCOSE METER Timed 04/10/2024 9:22 PM TEACHERS' ASSISTANT POTASSIUM Timed 04/10/2024 6:20 PM TEACHERS' ASSISTANT GLUCOSE METER Timed 04/10/2024 5:09 PM TEACHERS' ASSISTANT SCAN-CARDIAC STRIP 04/10/2024 4:04 PM TEACHERS' ASSISTANT POTASSIUM Timed 04/10/2024 1:24 PM TEACHERS' ASSISTANT GLUCOSE METER Timed 04/10/2024 12:37 PM TEACHERS' ASSISTANT SCAN-CARDIAC STRIP 04/10/2024 10:29 AM TEACHERS' ASSISTANT GLUCOSE METER Timed 04/10/2024 8:26 AM TEACHERS' ASSISTANT MAGNESIUM RUSH 04/10/2024 8:09 AM TEACHERS' ASSISTANT BASIC METABOLIC PANEL Early AM 04/10/2024 8:09 AM TEACHERS' ASSISTANT SCAN-CARDIAC STRIP 04/10/2024 5:01 AM TEACHERS' ASSISTANT GLUCOSE METER Timed 04/09/2024 9:07 PM TEACHERS' ASSISTANT POTASSIUM Timed 04/09/2024 7:56 PM TEACHERS' ASSISTANT SCAN-CARDIAC STRIP 04/09/2024 7:40 PM TEACHERS' ASSISTANT GLUCOSE METER Timed 04/09/2024 5:26 PM TEACHERS' ASSISTANT SCAN-CARDIAC STRIP 04/09/2024 3:40 PM TEACHERS' ASSISTANT GLUCOSE METER Timed 04/09/2024 8:14 AM TEACHERS' ASSISTANT BASIC METABOLIC PANEL Early AM 04/09/2024 8:10 AM TEACHERS' ASSISTANT GLUCOSE METER Timed 04/08/2024 9:15 PM TEACHERS' ASSISTANT GLUCOSE METER Timed 04/08/2024 4:52 PM TEACHERS' ASSISTANT POTASSIUM Timed 04/08/2024 2:45 PM TEACHERS' ASSISTANT GLUCOSE METER Timed 04/08/2024 1:00 PM TEACHERS' ASSISTANT PATH TISSUE EXAM Today 04/08/2024 12:39 PM TEACHERS' ASSISTANT ESOPHAGOGASTRODUODENOSCOPY W ITH BIOPSY 04/08/2024 12:13 PM TEACHERS' ASSISTANT melena GLUCOSE METER Timed 04/08/2024 11:09 AM TEACHERS' ASSISTANT ENDOSCOPY 04/08/2024 9:49 AM TEACHERS' ASSISTANT GLUCOSE METER Timed 04/08/2024 8:00 AM TEACHERS' ASSISTANT EXTRA TUBE BLUE Today 04/08/2024 6:45 AM TEACHERS' ASSISTANT EXTRA TUBE LAVENDER Today 04/08/2024 6:45 AM TEACHERS' ASSISTANT PRO-BNP Early AM 04/08/2024 6:45 AM TEACHERS' ASSISTANT BASIC METABOLIC PANEL Early AM 04/08/2024 6:45 AM TEACHERS' ASSISTANT SCAN-CARDIAC STRIP 04/07/2024 11:52 PM TEACHERS' ASSISTANT GLUCOSE METER Timed 04/07/2024 10:19 PM TEACHERS' ASSISTANT GLUCOSE METER Timed 04/07/2024 7:15 PM TEACHERS' ASSISTANT HEMOGLOBIN Timed 04/07/2024 6:10 PM TEACHERS' ASSISTANT DIGOXIN Timed 04/07/2024 1:50 PM TEACHERS' ASSISTANT HEMOGLOBIN Timed 04/07/2024 1:50 PM TEACHERS' ASSISTANT GLUCOSE METER Timed 04/07/2024 12:33 PM TEACHERS' ASSISTANT EKG 12 LEAD Routine 04/07/2024 10:01 AM TEACHERS' ASSISTANT URINALYSIS MICROSCOPIC Timed 9:48 AM TEACHERS' ASSISTANT UA W/ SEDIMENT EXAM REFLEXED PER CRITERIA Today 04/07/2024 9:48 AM TEACHERS' ASSISTANT COVID/FLU/RSV PANEL Today 04/07/2024 9:48 AM TEACHERS' ASSISTANT ICD ANALYSIS DUAL WITHOUT REPROGRAM Routine 04/07/2024 9:05 AM TEACHERS' ASSISTANT ECHO TTE LIMITED W CONTRAST W COLOR W DOPPLER Routine 04/07/2024 8:53 AM TEACHERS' ASSISTANT GLUCOSE METER Timed 04/07/2024 7:43 AM TEACHERS' ASSISTANT EXTRA TUBE BLUE Today 04/07/2024 6:23 AM TEACHERS' ASSISTANT LACTATE VENOUS Timed 04/07/2024 6:20 AM TEACHERS' ASSISTANT HEMOGLOBIN Timed 04/07/2024 6:20 AM TEACHERS' ASSISTANT MAGNESIUM Early AM 04/07/2024 6:20 AM TEACHERS' ASSISTANT SODIUM Early AM 04/07/2024 6:20 AM TEACHERS' ASSISTANT POTASSIUM Early AM 04/07/2024 6:20 AM TEACHERS' ASSISTANT CREATININE Early AM 04/07/2024 6:20 AM TEACHERS' ASSISTANT SCAN-CARDIAC STRIP 04/07/2024 5:29 AM TEACHERS' ASSISTANT SCAN-CARDIAC STRIP 04/07/2024 3:14 AM TEACHERS' ASSISTANT LACTATE VENOUS Timed 04/07/2024 2:58 AM TEACHERS' ASSISTANT GLUCOSE METER Timed 04/07/2024 1:49 AM TEACHERS' ASSISTANT TYPE & SCREEN Today 04/07/2024 12:39 AM TEACHERS' ASSISTANT FERRITIN RUSH 04/07/2024 12:39 AM TEACHERS' ASSISTANT IRON PLUS IRON BINDING CAP RUSH 04/07 12:39 AM TEACHERS' ASSISTANT RETICULOCYTES RUSH 04/07/2024 12:39 AM TEACHERS' ASSISTANT LACTATE VENOUS Today 04/07/2024 12:39 AM TEACHERS' ASSISTANT COMP METABOLIC PANEL STAT 04/07/2024 12:39 AM TEACHERS' ASSISTANT CBC W PLT NO DIFF STAT 04/07/2024 12:39 AM TEACHERS' ASSISTANT XR CHEST 1 VIEW PORTABLE STAT 025 8:19 PM TEACHERS' ASSISTANT TROPONIN I STAT 04/06/2024 7:53 PM TEACHERS' ASSISTANT BASIC METABOLIC PANEL STAT 04/06/2024 7:53 PM TEACHERS' ASSISTANT EXTRA TUBE LAVENDER Today 04/06/2024 3:55 PM TEACHERS' ASSISTANT HEPATIC FUNCTION PANEL STAT 3:55 PM TEACHERS' ASSISTANT BEDSIDE US STUDY ARCHIVE Routine 025 3:07 PM TEACHERS' ASSISTANT HEPARIN LEVEL STAT 04/06/2024 2:45 PM TEACHERS' ASSISTANT APTT STAT 04/06/2024 2:45 PM TEACHERS' ASSISTANT PROTIME-INR STAT 04/06/2024 2:45 PM TEACHERS' ASSISTANT EXTRA TUBE GOLD/SST Today 04/06/2024 2:45 PM TEACHERS' ASSISTANT EXTRA TUBE BLUE Today 04/06/2024 2:45 PM TEACHERS' ASSISTANT SLIDE REVIEW STAT 04/06/2024 2:45 PM TEACHERS' ASSISTANT BRAIN NATRIURETIC PEPTIDE STAT 2024 2:45 PM TEACHERS' ASSISTANT CBC WITH AUTO DIFFERENTIAL STAT 04/06 2:45 PM TEACHERS' ASSISTANT TROPONIN I STAT 04/06/2024 2:45 PM TEACHERS' ASSISTANT TSH WITH REFLEX STAT 04/06/2024 2:45 PM TEACHERS' ASSISTANT MAGNESIUM STAT 04/06/2024 2:45 PM TEACHERS' ASSISTANT BASIC METABOLIC PANEL STAT 04/06/2024 2:45 PM TEACHERS' ASSISTANT CBC WITH AUTO DIFFERENTIAL STAT 04/06 2:45 PM TEACHERS' ASSISTANT EKG 12 LEAD STAT 04/06/2024 2:35 PM TEACHERS' ASSISTANT SCAN-CARDIAC STRIP 04/06/2024 12:00 AM TEACHERS' ASSISTANT SCAN-CARDIAC STRIP 04/06/2024 12:00 AM TEACHERS' ASSISTANT SCAN-CARDIAC STRIP 03/22/2024 12:00 AM TEACHERS' ASSISTANT SCAN-CARDIAC STRIP 03/15/2024 12:00 AM TEACHERS' ASSISTANT SCAN-CARDIAC STRIP 03/08/2024 12:00 AM TEACHERS' ASSISTANT SCAN-CARDIAC STRIP 03/01/2024 12:00 AM TEACHERS' ASSISTANT SCAN-CARDIAC STRIP 03/01/2024 12:00 AM TEACHERS' ASSISTANT SCAN-CARDIAC STRIP 03/01/2024 12:00 AM TEACHERS' ASSISTANT SCAN-CARDIAC STRIP 03/01/2024 12:[address] ABDOMEN PELVIS WO STAT 01/16/2024 4:53 AM TEACHERS' ASSISTANT LIPID PANEL W REFLEX MEASURE D LDL [...] Results * (ABNORMAL) PROTIME-INR (04/27/2024 10:26 AM TEACHERS' ASSISTANT) Only the most recent of9 resultswithin the time period is included. INR 2.4(H) 0.8 - 1.1 04/27/2024 11:18 AM TEACHERS' ASSISTANT [facility] Blood BLOOD SPECIMEN / Unknown Venipuncture / Unknown 04/27/2024 10:26 AM TEACHERS' ASSISTANT 04/27/2024 10:38 AM TEACHERS' ASSISTANT Shana Lozano DO HEMATOLOGY Final Result Performing Organization Address [facility]/State/[facility] Co de Phone Number [place] [address] [place] [address], * (ABNORMAL) PRO-BNP (04/27/2024 10:26 AM TEACHERS' ASSISTANT) Only the most recent of2 resultswithin the time period is included. PRO-BNP 11,954(H) <125 pg/mL 04/27/2024 4:[address] [facility] Blood BLOOD SPECIMEN / Unknown Venipuncture / Unknown 04/27/2024 10:26 AM TEACHERS' ASSISTANT 04/27/2024 10:38 AM [facility] 04/27/2024 4:02 PM TEACHERS' ASSISTANT The following cut-points have been suggested for [...] for acute congestive heart failure. Abi Valdovinos [facility] SEND OUTS Final Resu lt [facility] [address] [place] [address], * (ABNORMAL) BASIC METABOLIC PANEL (04/27/2024 10:26 AM TEACHERS' ASSISTANT) Only the most recent of16 resultswithin the time period is included. SODIUM 135(L) 136 - 145 mmol/L 04/27/2024 11:34 AM [facility] POTASSIUM 4.3 3.5 - 5.1 mmol/L 04/27/2024 11:34 AM [facility] CHLORIDE 105 98 - 107 mmol/L 04/27/2024 11:34 AM [facility] CO2,TOTAL 17(L) 22 - 31 mmol/L 04/27/2024 11:34 AM [facility] ANION GAP 13 5 - 18 04/27/2024 11:34 AM [facility] GLUCOSE 110(H) 70 - 99 mg/dL 04/27/2024 11:34 AM [facility] CALCIUM 9.0 8.4 - 10.2 mg/dL 04/27/2024 11:34 AM [facility] BUN 25 8 - 25 mg/dL 04/27/2024 11:34 AM [facility] CREATININE 2.10(H) 0.72 - 1.25 mg/dL 04/27/2024 11:34 AM [facility] BUN/CREAT RATIO 12 10 - 20 11:34 AM [facility] eGFR 33(L) >90 mL/min/1.7 3m2 04/27/2024 11:34 AM [facility] Comment:As of 2021, eG FR is calculated by the CKD-EPI creatinine equation without race adjustment. eGFR can be influenced by muscle mass, exercise, and diet. The reported eGFR is an estimation only and is only applicable if the renal function is stable. Blood BLOOD SPECIMEN / Unknown Venipuncture / Unknown 04/27/2024 10:26 AM TEACHERS' ASSISTANT 04/27/2024 10:38 AM TEACHERS' ASSISTANT Abi Valdovinos [facility] CHEMISTRY Final Resu lt [facility] [address] [place] [address], * (ABNORMAL) Hepatic function panel AM (04/21/2024 6:15 AM [facility]) Only the most recent of11 resultswithin the time period is included. ALBUMIN 3.5(L) 4.0 - 4.9 g/dL 04/21/2024 6:57 AM [facility] PROTEIN,TOTAL 5.9(L) 6.0 - 8.0 g/dL 04/21/2024 6:57 AM [facility] [employer] [facility] [place] TRAL LABORATORY BILIRUBIN,TOTAL 1.0 0.0 - 1.2 mg/dL 04/21/2024 6:57 AM [facility] TRAL LABORATORY BILIRUBIN,DIRECT 0.5(H) 0.0 - 0.2 mg/dL 04/21/2024 6:57 AM [facility] TRAL LABORATORY BILIRUBIN,INDIRE CT 0.5 0.2 - 0.8 mg/dL 04/21/2024 6:57 AM [facility] TRAL LABORATORY ALK PHOSPHATASE 158(H) 40 - 129 IU/L 04/21/2024 6:57 AM [facility] TRAL LAB[facility] ALT (SGPT) 48 10 - 50 IU/L 04/21/2024 6:57 AM [facility] TRAL LAB[facility] AST (SGOT) 18 10 - 50 IU/L 04/21/2024 6:57 AM [facility] TRAL LAB[facility] Blood BLOOD SPECIMEN / Unknown Venipuncture / Unknown 04/21/2024 6:15 AM TEACHERS' ASSISTANT 04/21/2024 6:29 AM TEACHERS' ASSISTANT us Lauro Kendall MD CHEMISTRY Final Res ult [facility] [address] [place] [address], [place] * SCAN-CARDIAC STRIP (04/20/2024 11:03 PM TEACHERS' ASSISTANT) us Scanner OTHER Final Result * SCAN-CARDIAC STRIP (04/20/2024 7:32 PM TEACHERS' ASSISTANT) us Scanner OTHER Final Result * (ABNORMAL) CBC (04/20/2024 7:04 AM TEACHERS' ASSISTANT) Only the most recent of2 resultswithin the time period is included. WHITE BLOOD COUNT 8.1 4.5 - 11.0 thou/cu mm 04/20/2024 7:31 AM TEACHERS' ASSISTANT [facility] TRAL LABORATORY RED BLOOD COUNT 3.32(L) 4.30 - 5.90 mil/cu mm 04/20/2024 7:31 AM TEACHERS' ASSISTANT [facility] TRAL LAB[facility]ATORY HEMOGLOBIN 9.6(L) 13.5 - 17.5 g/dL 04/20/2024 7:31 AM TEACHERS' ASSISTANT [facility] TRAL LAB[facility]ATORY HEMATOCRIT 30.3(L) 37.0 - 53.0 % 04/20/2024 7:31 AM TEACHERS' ASSISTANT [facility] TRAL LABORATORY MCV 91 80 - 100 fL 04/20/2024 7:31 AM [facility] TRAL LAB[facility]AT[facility] MCH 28.9 26.0 - 34.0 pg 04/20/2024 7:31 AM TEACHERS' ASSISTANT [facility] TRAL LAB[facility] MCHC 31.7(L) 32.0 - 36.0 g/dL 04/20/2024 7:31 AM [facility] TRAL LAB[facility] RDW 18.9(H) 11.5 - 15.5 % 04/20/2024 7:31 AM [facility] TR[facility] LAB[facility] PLATELET COUNT 229 140 - 440 thou/cu mm 04/20/2024 7:31 AM TEACHERS' ASSISTANT [facility] TRAL LAB[facility]ORY MPV 10.9 6.5 - 11.0 fL 04/20/2024 7:31 AM [facility] TRAL LAB[facility] NRBC 0.2 % 04/20/2024 7:31 AM TEACHERS' ASSISTANT [facility] TRAL LAB[facility] ABS NRBC 0.0 thou /cu mm 04/20/2024 7:31 AM [facility] Blood BLOOD SPECIMEN / Unknown Venipuncture / Unknown 04/20/2024 7:04 AM TEACHERS' ASSISTANT 04/20/2024 7:20 AM TEACHERS' ASSISTANT Madonna Hedrick SENIOR DATA ANALYST HEMATOLOGY Final Res ult Performing Organization Address City/[facility]/ZIP Co de Phone Number [facility] [address] [address], [place] * (ABNORMAL) Magnesium AM (04/20/2024 7:04 AM TEACHERS' ASSISTANT) Only the most recent of13 resultswithin the time period is included. MAGNESIUM 2.5(H) 1.6 - 2.4 mg/dL 04/20/2024 7:50 AM TEACHERS' ASSISTANT [facility] Blood BLOOD SPECIMEN / Unknown Venipuncture / Unknown 04/20/2024 7:04 AM TEACHERS' ASSISTANT 04/20/2024 7:20 AM TEACHERS' ASSISTANT Madonna Hedrick SENIOR DATA ANALYST CHEMISTRY Final Res ult Performing Organization Address City/[facility]/ZIP Co de Phone Number [facility] [address] [address], [place] * (ABNORMAL) O2 SATURATION,MEASURED (04/20/2024 6:22 AM TEACHERS' ASSISTANT) Only the most recent of9 resultswithin the time period is included. O2 SATURATION,MANISH SURED 55 % 04/20/2024 6:38 AM [facility] HEMOGLOBIN,BLO OD GAS 10.0(L) 13.5 - 17.5 g/dL 04/20/2024 6:38 AM TEACHERS' ASSISTANT [facility] TRAL LABORATORY SOURCE, O2M Venous 04/20/2024 6:38 AM TEACHERS' ASSISTANT [facility] TRA LABORATORY Blood BLOOD SPECIMEN / Unknown Non-Lab Venipuncture / Unknown 04/20/2024 6:22 AM TEACHERS' ASSISTANT 04/20/2024 6:34 AM TEACHERS' ASSISTANT Narrative [facility] - 04/20/2024 6:38 AM TEACHERS' ASSISTANT Reference Range for: Arterial Source ([id number]) Non-Arterial Source (70-75) us Marylou Currie NP CHEMISTRY Final R esult Performing Organization Address City/[facility]/ZIP Co de Phone Number [facility] [address] [place] [address], [place] * SCAN-CARDIAC STRIP (04/19/2024 7:23 PM TEACHERS' ASSISTANT) us Scanner OTHER Final Result * SCAN-CARDIAC STRIP (04/19/2024 1:45 PM TEACHERS' ASSISTANT) us Scanner OTHER Final Result * (ABNORMAL) Hemoglobin AM (04/19/2024 6:57 AM TEACHERS' ASSISTANT) Only the most recent of8 resultswithin the time period is included. HEMOGLOBIN 10.3(L) 13.5 - 17.5 g/dL 04/19/2024 8:14 AM TEACHERS' ASSISTANT [facility] MCV 93 80 - 100 fL 04/19/2024 8:14 AM TEACHERS' ASSISTANT [facility] Blood BLOOD SPECIMEN / Unknown Non-Lab Venipuncture / Unknown 04/19/2024 6:57 AM TEACHERS' ASSISTANT 04/19/2024 8:09 AM TEACHERS' ASSISTANT us Deborah Lipscomb MD HEMATOLOGY Final R esult Performing Organization Address City/[facility]/ZIP Co de Phone Number [facility] [address] [address], [place] * SCAN-CARDIAC STRIP (04/18/2024 10:04 PM TEACHERS' ASSISTANT) us Scanner OTHER Final Result * SCAN-CARDIAC STRIP (04/18/2024 5:43 PM TEACHERS' ASSISTANT) us Scanner OTHER Final Result * POTASSIUM (04/18/2024 12:45 PM TEACHERS' ASSISTANT) Only the most recent of11 resultswithin the time period is included. POTASSIUM 3.9 3.5 - 5.1 mmol/L 04/18/2024 1:14 PM TEACHERS' ASSISTANT [facility] Blood BLOOD SPECIMEN / Unknown Venipuncture / Unknown 04/18/2024 12:45 PM TEACHERS' ASSISTANT 04/18/2024 12:51 PM TEACHERS' ASSISTANT us Deborah Lipscomb MD CHEMISTRY Final R esult [facility] [address] [place] [address], [place] * SCAN-CARDIAC STRIP (04/18/2024 7:46 AM TEACHERS' ASSISTANT) us Scanner OTHER Final Result * SCAN-CARDIAC STRIP (04/17/2024 11:49 PM TEACHERS' ASSISTANT) us Scanner OTHER Final Result * SCAN-CARDIAC STRIP (04/17/2024 9:12 PM TEACHERS' ASSISTANT) us Scanner OTHER Final Result * SCAN-CARDIAC STRIP (04/17/2024 7:41 AM TEACHERS' ASSISTANT) us Scanner OTHER Final Result * SCAN-CARDIAC STRIP (04/16/2024 11:25 PM TEACHERS' ASSISTANT) us Scanner OTHER Final Result * (ABNORMAL) ALT (SGPT) (04/16/2024 10:19 AM TEACHERS' ASSISTANT) ALT (SGPT) 201(H) 10 - 50 IU/L 04/16/2024 11:00 AM TEACHERS' ASSISTANT [facility] Blood BLOOD SPECIMEN / Unknown Butterfly / Unknown 04/16/2024 10:19 AM TEACHERS' ASSISTANT 04/16/2024 10:30 AM TEACHERS' ASSISTANT Deborah Lipscomb MD CHEMISTRY Final R esult Performing Organization Address [facility]/ZIP Co de Phone Number [facility] [address] [place] [address], [place] * (ABNORMAL) AST (SGOT) (04/16/2024 10:19 AM TEACHERS' ASSISTANT) AST (SGOT) 58(H) 10 - 50 IU/L 04/16/2024 11:00 AM TEACHERS' ASSISTANT [facility] Blood BLOOD SPECIMEN / Unknown Butterfly / Unknown 04/16/2024 10:19 AM TEACHERS' ASSISTANT 04/16/2024 10:30 AM TEACHERS' ASSISTANT Deborah Lipscomb MD CHEMISTRY Final R esult Performing Organization Address [facility] Co de Phone Number [facility] [address] [place] [address], [place] * (ABNORMAL) ALK PHOSPHATASE (04/16/2024 10:19 AM TEACHERS' ASSISTANT) ALK PHOSPHATASE 157(H) 40 - 129 IU/L 04/16/2024 11:00 AM TEACHERS' ASSISTANT [facility] TRAL [facility] Blood BLOOD SPECIMEN / Unknown Butterfly / Unknown 04/16/2024 10:19 AM TEACHERS' ASSISTANT 04/16/2024 10:30 AM TEACHERS' ASSISTANT Deborah Lipscomb MD CHEMISTRY Final R esult Performing Organization Address [facility] Co de Phone Number [facility] [address] [place] [address], [place] * (ABNORMAL) BILIRUBIN DIRECT (04/16/2024 10:19 AM TEACHERS' ASSISTANT) BILIRUBIN,DIRE CT 0.6(H) 0.0 - 0.2 mg/dL 04/16/2024 11:00 AM TEACHERS' ASSISTANT [facility] Blood BLOOD SPECIMEN / Unknown Butterfly / Unknown 04/16/2024 10:19 AM TEACHERS' ASSISTANT 04/16/2024 10:30 AM TEACHERS' ASSISTANT Deborah Lipscomb MD CHEMISTRY Final R [facility] Performing Organization Address [facility] Phone Number [facility] [address] [place] [address], * SCAN-CARDIAC STRIP (04/16/2024 8:23 AM TEACHERS' ASSISTANT) Scanner OTHER Final Result * (ABNORMAL) SODIUM (04/16/2024 8:09 AM TEACHERS' ASSISTANT) Only the most recent of2 resultswithin the time period is included. SODIUM 134(L) 136 - 145 mmol/L 04/16/2024 9:45 AM TEACHERS' ASSISTANT [facility] Blood BLOOD SPECIMEN / Unknown Non-Lab Venipuncture / Unknown 04/16/2024 8:09 AM TEACHERS' ASSISTANT 04/16/2024 9:06 AM TEACHERS' ASSISTANT Deborah Lipscomb MD CHEMISTRY Final R [facility] Performing Organization Address [facility] Phone Number [facility] [address] [place] [address], * (ABNORMAL) CREATININE (04/16/2024 8:09 AM TEACHERS' ASSISTANT) Only the most recent of2 resultswithin the time period is included. eGFR 37(L) >90 mL/min/1.7 3m2 04/16/2024 9:45 AM TEACHERS' ASSISTANT [facility] TR[facility] Comment:As of 2021, eG FR is calculated by the CKD-EPI creatinine equation without race adjustment. eGFR can be influenced by muscle mass, exercise, and diet. The reported eGFR is an estimation only and is only applicable if the renal function is stable. CREATININE 1.91(H) 0.70 - 1.20 mg/dL 04/16/2024 9:45 AM TEACHERS' ASSISTANT [facility] TRAL LABORATORY Blood BLOOD SPECIMEN / Unknown Non-Lab Venipuncture / Unknown 04/16/2024 8:09 AM TEACHERS' ASSISTANT 04/16/2024 9:06 AM TEACHERS' ASSISTANT us Deborah Lipscomb MD CHEMISTRY Final R esult [facility] [address] [place] [address], [place] * SCAN-CARDIAC STRIP (04/16/2024 1:03 AM TEACHERS' ASSISTANT) us Scanner OTHER Final Result * SCAN-CARDIAC STRIP (04/15/2024 8:37 PM TEACHERS' ASSISTANT) us Scanner OTHER Final Result * EKG 12 LEAD (04/15/2024 12:31 PM TEACHERS' ASSISTANT) Only the most recent of6 resultswithin the [...] NOW QTc 448 ms BEYOND NOW P [place] 53 degrees BEYOND NOW R Stanford -60 degrees BEYOND NOW T Stanford 118 degrees BEYOND NOW 04/15/2024 12:3 1 PM TEACHERS' ASSISTANT 04/16/2024 1:25 AM TEACHERS' ASSISTANT us Jossie Prado SENIOR DATA ANALYST EKG ORD Final Result Performing Organization Address City/[facility]/ZIP Co de Phone Number BEYOND NOW [place], [place] * (ABNORMAL) GLUCOSE METER (04/15/2024 7:49 AM TEACHERS' ASSISTANT) Only the most recent of33 resultswithin the time period is included. GLUCOSE METER 134(H) 65 - 100 mg/dL 04/15/2024 7:54 AM TEACHERS' ASSISTANT [facility] Blood BLOOD SPECIMEN / Unknown 04/15/2024 7:49 AM TEACHERS' ASSISTANT 04/15/2024 7:54 AM TEACHERS' ASSISTANT us Deborah Lipscomb MD CHEMISTRY Final R esult [facility] [address] [place] [address], [place] * SCAN-CARDIAC STRIP (04/15/2024 7:26 AM TEACHERS' ASSISTANT) us Scanner OTHER Final Result * SCAN-CARDIAC STRIP (04/15/2024 3:06 AM TEACHERS' ASSISTANT) us Scanner OTHER Final Result * SCAN-CARDIAC STRIP (04/14/2024 9:43 PM TEACHERS' ASSISTANT) us Scanner OTHER Final Result * SCAN-CARDIAC STRIP (04/14/2024 3:27 PM TEACHERS' ASSISTANT) us Scanner OTHER Final Result * ICD ANALYSIS DUAL WITHOUT REPROGRAM (04/14/2024 3:13 PM TEACHERS' ASSISTANT) Narrative Vasyl Kim MD - 04/14/2024 3:13 PM TEACHERS' ASSISTANT Marino Strickland RN 04/14/2024 3:17 PM ICD EVALUATION REPORT 04/14/2024 Summary: Normal pacemaker function. Lead trends stable. 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 No VT detections. AP 20.9%, STEEL PLACER 0.2%. Battery estimating 11.2 years remaining. Indication for ICD: Primary Prevention of Sudden Cardiac Primary MD: Shana Lozano DO Primary Cartographic Designer: [facility] Implanting MD: Bert Quiros- [facility] DEVICE DATA Setter Out Medtronic: Model [place] XT DR [id number] Implant Date 04/09/2023 LEAD DATA Atrial Lead: Setter Out Medtronic: Model 5076-52 cm Implant Date 04/09/23 RV Lead: Setter Out Med[employer]onic: Model 6935M-62 cm Implant Date 04/09/23 [...] Tachy therapy hx: none Location of evaluation: [facility] [id number] Reason for evaluation: MD request MEASUREMENTS [...] permanent changes made. Follow up: follows with [facility] device clinic Marino Strickland RN Nurse Clinician II [facility] Pacemaker/ICD [phone] us Vasyl Kim MD CARDIAC SERVICES ORD Final Result * SCAN-CARDIAC STRIP (04/14/2024 7:21 AM TEACHERS' ASSISTANT) Scanner OTHER Final Result * URINALYSIS MICROSCOPIC (04/14/2024 6:29 AM TEACHERS' ASSISTANT) Only the most recent of2 resultswithin the time period is included. RBC 0-2 0-2, None Seen /HPF 04/14/2024 7:26 AM TEACHERS' ASSISTANT [facility] WBC 3-5 0-2, 3-5, None Seen /HPF 04/14/2024 7:26 AM TEACHERS' ASSISTANT [facility] TRAL LABORATORY BACTERIA None Seen None Seen, Rare, Few Bacteria/ HPF 04/14/2024 7:26 AM TEACHERS' ASSISTANT [facility] TRAL LAB[facility]ORY EPITHELIAL CELLS None Seen None Seen, Few Epi/HPF 04/14/2024 7:26 AM TEACHERS' ASSISTANT [facility] TRAL LAB[facility]ORY HYALINE CASTS 0-2 0-2, 3-5 /LPF 04/14/2024 7:26 AM TEACHERS' ASSISTANT [facility] LABORATORY Urine URINE SPECIMEN / Unknown Non-Blood / Unknown 04/14/2024 6:29 AM TEACHERS' ASSISTANT 04/14/2024 6:36 AM TEACHERS' ASSISTANT us Santy Crowley MD URINE Final Re sult [facility] [address] [place] [address], * (ABNORMAL) UA W/ SEDIMENT EXAM REFLEXED PER CRITERIA (04/14/2024 6:29 AM TEACHERS' ASSISTANT) Only the most recent of2 resultswithin the time period is included. COLOR Yellow Yellow Color 04/14/2024 7:26 AM TEACHERS' ASSISTANT [facility] TRAL LAB[facility] CLARITY Clear Clear Clarity 04/14/2024 7:26 AM TEACHERS' ASSISTANT [facility] TRA LABORATORY SPECIFIC GRAVITY,URINE 1.015 1.010, 1.015, 1.020, 1.025 04/14/2024 7:26 AM [facility] TRAL LABORAT[facility] PH,URINE 5.5 6.0, 7.0, 8.0, 5.5, 6.5, 7.5, 8.5 04/14/2024 7:26 AM [facility] TR[facility] UROBILINOGEN, QUALITATIVE Normal Normal EU/dl 04/14/2024 7:26 AM [facility] TR[facility] PROTEIN, URINE Negative Negative mg/dL 04/14/2024 7:26 AM [facility] TR[facility] GLUCOSE, URINE Negative Negative mg/dL 04/14/2024 7:26 AM [facility] TR[facility] KETONES,URINE Negative Negative mg/dL 04/14/2024 7:26 AM [facility] TRAL LAB[facility] BILIRUBIN,URI NE Negative Negative 04/14/2024 7:26 AM [facility] OCCULT BLOOD,URINE Negative Negative 04/14/2024 7:26 AM [facility] TR[facility] NITRITE Negative Negative 04/14/2024 7:26 AM [facility] LEUKOCYTE ESTERASE Trace(A) Negative 04/14/2024 7:26 AM [facility] Urine URINE SPECIMEN / Unknown Non-Blood / Unknown 04/14/2024 6:29 AM TEACHERS' ASSISTANT 04/14/2024 6:36 AM TEACHERS' ASSISTANT us Santy Crowley MD URINE Final Re sult [facility] [address] [place] [address], * SCAN-CARDIAC STRIP (04/13/2024 8:03 PM TEACHERS' ASSISTANT) us Scanner OTHER Final Result * PICC LINE (04/13/2024 7:28 PM TEACHERS' ASSISTANT) Narrative Eleonora Fox RN - 04/13/2024 7:28 PM TEACHERS' ASSISTANT Eleonora Fox RN 04/13/2024 7:33 PM PICC Line Insertion Note 04/13/2024 7:28 PM Procedure education reviewed: Placement procedure, discussed with: Patient face to face. Patient face to face confirms understanding of procedure. Pharmacy Coordinator used: No Reason for insertion: MD order [...] (Active) 04/13/241899 Right;Basilic;Upper Arm Vessel Diameter: 0.46 Gcpakhsx-zk-Wzgi Ratio (%): Visible Catheter Length (cm): 0 [...] Dressing change due date 04/20/2024 04/13/241899 Line Setter Out Name: Bard Line Type: Valved Power PICC Lot Number: [id number] Access Assistance:Modified Seldinger Technique (Micro-Introducer) WITH Dermatotomy [...] * Insert PICC line (04/13/2024 7:20 PM TEACHERS' ASSISTANT) Narrative Eleonora Fox, RN - 04/13/2024 7:20 PM TEACHERS' ASSISTANT Eleonora Fox, RN 04/13/2024 7:22 PM PICC [...] ult * SCAN-CARDIAC STRIP (04/13/2024 3:12 PM TEACHERS' ASSISTANT) us Scanner OTHER Final Result * ICD ANALYSIS DUAL WITHOUT REPROGRAM (04/13/2024 1:57 PM TEACHERS' ASSISTANT) Narrative Vasyl Kim MD - 04/13/2024 1:57 PM TEACHERS' ASSISTANT Mirela Bates, RN 04/13/2024 2:23 PM ICD EVALUATION REPORT 04/13/2024 Summary: Normal pacemaker function. Lead trends stable. 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 No VT detections. AP 2.9%, STEEL PLACER 51.9%. Battery estimating 11.3 years remaining. Indication for ICD: Primary Prevention of Sudden Cardiac Primary MD: Shana Lozano DO Primary Cartographic Designer: [facility] Implanting MD: eBrt Quiros- [facility] DEVICE DATA Setter Out Medtronic: Model Altamont XT DR [id number] Implant Date 04/09/2023 LEAD DATA Atrial Lead: Setter Out Medtronic: Model 5076-52 cm Implant Date 04/09/23 RV Lead: Setter Out Medtronic: Model [id number]-62 cm Implant Date 04/09/23 [...] Tachy therapy hx: none Location of evaluation: [facility] [id number] Reason for evaluation: MD request- check [...] permanent changes made. Follow up: follows with [facility] device clinic iMrela Bates RN Nurse Clinician II [facility] Pacemaker/ICD Clinic [phone] Vasyl Kim MD CARDIAC SERVICES ORD Final Result * SCAN-CARDIAC STRIP (04/13/2024 7:35 AM TEACHERS' ASSISTANT) Scanner OTHER Final Result * (ABNORMAL) COMPREHENSIVE BLOOD GAS MIXED VENOUS (04/12/2024 4:48 PM TEACHERS' ASSISTANT) O2 SATURATION, MEASURED, MIXED VENOUS 41(L) 70 - 75 % 04/12/2024 4:48 PM TEACHERS' ASSISTANT [facility] LABORAT[facility]-CE NTRAL LABORATORY PATIENT TEMPERATURE 37.0 Degrees C 04/12/2024 4:48 PM TEACHERS' ASSISTANT [facility] N[facility]AL LABORATORY COLLECTION SITE PULMONARY ARTERY 04/12/2024 4:48 PM TEACHERS' ASSISTANT [facility] [employer]- [facility] LAB[facility] HEMOGLOBIN,BLOO D GAS 11.4(L) 13.5 - 17.5 g/dL 04/12/2024 4:48 PM TEACHERS' ASSISTANT [facility]- [facility] Blood BLOOD SPECIMEN / Unknown 04/12/2024 4:48 PM TEACHERS' ASSISTANT 04/12/2024 4:48 PM TEACHERS' ASSISTANT us [facility] CHEMISTRY Final Re sult [facility] LABORATORY-CENTRAL LABORATORY [address] [place] [address], [place] * CVL OTHER PROCEDURE (04/12/2024 4:09 PM TEACHERS' ASSISTANT) Anatomical Region Laterality Modality Other 04/12/2024 4:09 PM TEACHERS' ASSISTANT us Provider Referring CV IMAGING Final Result * SCAN-CARDIAC STRIP (04/12/2024 3:27 PM TEACHERS' ASSISTANT) us Scanner OTHER Final Result * US RENAL AND BLADDER COMPLETE (04/12/2024 2:51 PM TEACHERS' ASSISTANT) Anatomical Region Laterality Modality Abdomen, AORTA, KIDNEYS Ultrasou nd 04/12/2024 3:46 PM TEACHERS' ASSISTANT Impressions 04/12/2024 3:46 PM TEACHERS' ASSISTANT Simple appearing right lower pole renal cyst. Otherwise, no concerning findings on a renal ultrasound. Dictated by Danny Rubio MD @ 04/12/2024 3:46:12 PM (Electronically Signed) Narrative 04/12/2024 3:46 PM TEACHERS' ASSISTANT For Patients: As a result of the [...] COLOR W LTD DOPPLER (04/12/2024 10:52 AM TEACHERS' ASSISTANT) MITRAL VALVE MR ERO 13 mm2 EJECTION FRACTION 10 - 20% Anatomical Region Laterality Modality Ultrasound 04/12/2024 10:2 2 AM TEACHERS' ASSISTANT Narrative 04/12/2024 1:01 PM TEACHERS' ASSISTANT TRANSESOPHAGEAL ECHOCARDIOGRAM CASEY SOLER : 1950 73 years Study Date: 04/12/2024 10:22:59 AM Gender: M BP: 96/76 mmHg Height: 172.00 cm BSA: 1.91 m Weight: 78.00 kg Tech: LETICIA/ION Referring MD: FARA BLACKWELL Site: [facility] Reading Location: [facility] Patient Location: Inpatient. Procedure: NOEL, Limited [...] . This study was interpreted by an [facility] accredited facility. Final Procedure Note Troy Munoz MD - 04/12/2024 TRANSESOPHAGEAL ECHOCARDIOGRAM CASEY SOLER : 1950 73 years Study Date: 04/12/2024 10:22:59 AM Gender: M BP: 96/76 mmHg Height: 172.00 cm BSA: 1.91 m Weight: 78.00 kg Tech: LETICIA/ION Referring MD: FARA BLACKWELL Site: [facility] Reading Location: [facility] Patient Location: Inpatient. Procedure: NOEL, Limited [...] . This study was interpreted by an [facility] accredited facility. Final us Fara Blackwell SENIOR DATA ANALYST ECHO ORD Final Resu lt * EP OTHER PROCEDURE (04/12/2024 10:48 AM TEACHERS' ASSISTANT) Anatomical Region Laterality Modality Other Narrative 04/12/2024 10:48 AM TEACHERS' ASSISTANT Troy Munoz MD 04/12/2024 10:48 AM [facility] Procedure Note Date of Service: 04/12/2024 Procedure [...] sult * SCAN-CARDIAC STRIP (04/12/2024 3:46 AM TEACHERS' ASSISTANT) us Scanner OTHER Final Result * SCAN-OPERATIVE/PROCEDURE REPORT (04/12/2024 12:00 AM TEACHERS' ASSISTANT) Narrative 04/12/2024 12:00 AM TEACHERS' ASSISTANT Ordered by an unspecified provider. us Other Clinical Staff OTHER Final Resul t * SCAN-CARDIAC STRIP (04/11/2024 8:21 PM TEACHERS' ASSISTANT) us Scanner OTHER Final Result * SCAN-CARDIAC STRIP (04/11/2024 4:18 PM TEACHERS' ASSISTANT) us Scanner OTHER Final Result * SCAN-CARDIAC STRIP (04/11/2024 7:48 AM TEACHERS' ASSISTANT) us Scanner OTHER Final Result * SCAN-CARDIAC STRIP (04/10/2024 4:04 PM TEACHERS' ASSISTANT) us Scanner OTHER Final Result * SCAN-CARDIAC STRIP (04/10/2024 10:29 AM TEACHERS' ASSISTANT) us Scanner OTHER Final Result * SCAN-CARDIAC STRIP (04/10/2024 5:01 AM TEACHERS' ASSISTANT) us Scanner OTHER Final Result * SCAN-CARDIAC STRIP (04/09/2024 7:40 PM TEACHERS' ASSISTANT) us Scanner OTHER Final Result * SCAN-CARDIAC STRIP (04/09/2024 3:40 PM TEACHERS' ASSISTANT) us Scanner OTHER Final Result * PATH TISSUE EXAM (04/08/2024 12:39 PM TEACHERS' ASSISTANT) Case Report Pathology Report Case: [id number] Authorizing Provider: Chepe Francis MD Collected: 04/08/2024 1239 Ordering Location: [facility] Received: 04/08/2024 1244 [facility] Pathologist: Lukasz Pinto MD Specimen: Gastric Biopsy 04/09/2024 11:12 AM TEACHERS' ASSISTANT [employer]AT[facility] Final Diagnosis A) STOMACH, BIOPSY: 1. Normal gastric antral and body mucosae with endoscopic erosion (see comment) 2. Negative for chronic gastritis or Helicobacter 04/09/2024 11:12 AM TEACHERS' ASSISTANT [employer] [facility] Comment A) We note the endoscopic presence of an erosion. The sampled mucosa is histologically normal. In this context patchy reactive gastropathy due to chemical type injury (NSAIDs, alcohol, bile reflux, etc.) seems likely. Please correlate clinically. 04/09/2024 11:12 AM TEACHERS' ASSISTANT [employer] [facility] Clinical Information 73-year-old male with iron deficiency anemia and melena. He is on chronic aspirin, Plavix, and ibuprofen. EGD identified a single erosion in the prepyloric region of the stomach. 04/09/2024 11:12 AM TEACHERS' ASSISTANT [employer] [facility] Gross Description A) Received in formalin is a 6 x 3 x 1 mm aggregate of alvarez mucosa. Submitted in one cassette. It is labeled with the patient's name and designated gastric biopsy. Joana Estrada 04/08/2024 1:06 PM 04/09/2024 11:12 AM [facility] [employer] Microscopic Description The final diagnosis is based on microscopic examination of appropriate sections of all specimens. 04/09/2024 11:12 AM [facility] [employer] Additional Information Interpreted at [facility], Central Laboratory - [address], [place] [address] 04/09/2024 11:12 AM TEACHERS' ASSISTANT [facility] LABORATORY-C ENTRAL LABORATORY Biopsy GASTRIC BIOPSY SPECIMEN / Unknown 04/08/2024 12:39 PM TEACHERS' ASSISTANT 04/08/2024 12:44 PM TEACHERS' ASSISTANT Chepe Francis MD PATHOLOGY/CYTOLOGY Christy l Result [facility]-CENTRAL LABORATORY [address] [place] [address], [place] * ENDOSCOPY (04/08/2024 9:49 AM TEACHERS' ASSISTANT) 04/08/2024 9:49 AM TEACHERS' ASSISTANT Narrative Transcriptions Chepe Francis MD - 04/08/2024 [...] surgery and alternatives discussed. The endoscope [id number] was introduced through the mouth, and advanced [...] * EXTRA TUBE LAVENDER (04/08/2024 6:45 AM TEACHERS' ASSISTANT) Only the most recent of2 resultswithin the time period is included. Blood BLOOD SPECIMEN / Unknown Non-Lab Venipuncture / Unknown 04/08/2024 6:45 AM TEACHERS' ASSISTANT 04/08/2024 6:57 AM TEACHERS' ASSISTANT us Joseph Arora MD LABORATORY Final Re sult [facility]-CENTRAL LABORATORY [address] [place] [id number], [place] * EXTRA TUBE BLUE (04/08/2024 6:45 AM TEACHERS' ASSISTANT) Only the most recent of3 resultswithin the time period is included. Blood BLOOD SPECIMEN / Unknown Non-Lab Venipuncture / Unknown 04/08/2024 6:45 AM TEACHERS' ASSISTANT 04/08/2024 6:57 AM TEACHERS' ASSISTANT Joseph Arora MD LABORATORY Final Re sult Performing Organization Address [facility] Co de Phone Number [facility] [address] [place] [id number], [place] * SCAN-CARDIAC STRIP (04/07/2024 11:52 PM TEACHERS' ASSISTANT) us Scanner OTHER Final Result * (ABNORMAL) DIGOXIN (04/07/2024 1:50 PM TEACHERS' ASSISTANT) Pathologist [facility] DIGOXIN 2.5(H) 0.8 - 2.0 ng/mL 04/07/2024 2:32 PM TEACHERS' ASSISTANT [facility] TRAL LABORATORY DATE OF LAST DOSE Not Given 04/07/2024 2:32 PM TEACHERS' ASSISTANT [facility] TRAL LAB[facility] TIME OF LAST DOSE Not Given 04/07/2024 2:32 PM TEACHERS' ASSISTANT [facility] TRAL LABORATORY Blood BLOOD SPECIMEN / Unknown Venipuncture / Unknown 04/07/2024 1:50 PM TEACHERS' ASSISTANT 04/07/2024 1:55 PM TEACHERS' ASSISTANT Guille Choi NP CHEMISTRY Final Result Performing Organization Address [facility] Co de Phone Number [facility] [address] [place] [id number], [place] * COVID/FLU/RSV PANEL (04/07/2024 9:48 AM TEACHERS' ASSISTANT) Pathologist [facility] COVID 19 [facility] Negative Negative 04/07/2024 12:16 PM TEACHERS' ASSISTANT [facility] TRAL LABORATORY Comment:All PCR tests are krishnan bject to false negative result due to variability in viral load and collection technique. A negative result does not rule out a SARS-CoV-2 infection. Clinical correlation required. INFLUENZA A PCR Negative 12:16 PM TEACHERS' ASSISTANT [facility] LABORATORY-LI TRAL LABORATORY INFLUENZA B PCR Negative 12:16 PM TEACHERS' ASSISTANT [facility] TRAL LABORATORY Respiratory Syncytial Virus Negative 04/07/2024 12:16 PM TEACHERS' ASSISTANT [facility] TRAL LABORATORY Swab NASOPHARYNGEAL SWAB / Unknown Non-Blood / Unknown 04/07/2024 9:48 AM TEACHERS' ASSISTANT 04/07/2024 10:17 AM TEACHERS' ASSISTANT us Joseph Arora MD MICROBIOLOGY Final Re sult [facility] [address] [place] [address], * ICD ANALYSIS DUAL WITHOUT REPROGRAM (04/07/2024 9:05 AM TEACHERS' ASSISTANT) Narrative Chato Benz MD - 04/07/2024 9:05 AM TEACHERS' ASSISTANT Mirela Bates RN 04/07/2024 9:59 AM ICD EVALUATION REPORT April 07, 2024 Summary: Normal pacemaker function. Lead trends stable. One AT/AF detection- beginning on 04/03/24 and has continuous since this time. Poor ventricular rate control. One VT detection on 01/29/24- 3 seconds rate of 233 bpm. AP 35.8%, STEEL PLACER 2.2%. Battery estimating 11.3 years remaining. Indication for ICD: Primary Prevention of Sudden Cardiac Primary MD: Shana Lozano DO Primary Cartographic Designer: [facility] Implanting MD: Bert Quiros- [facility] DEVICE DATA Setter Out Medtronic: Model Altamont XT DR [id number] Implant Date 04/09/2023 LEAD DATA Atrial Lead: Setter Out Medtronic: Model 5076-52 cm Implant Date 04/09/23 RV Lead: Setter Out Medtronic: Model [id number]-62 cm Implant Date 04/09/23 [...] Tachy therapy hx: none Location of evaluation: [facility] [id number] Reason for evaluation: MD request MEASUREMENTS [...] permanent changes made. Follow up: follows with [facility] device clinic Mirela Bates RN Nurse Clinician II [facility] Pacemaker/ICD Clinic [phone] us Chato Benz MD CARDIAC SERVICES ORD F inal Result * ECHO TTE LIMITED W CONTRAST W COLOR W DOPPLER (04/07/2024 8:53 AM TEACHERS' ASSISTANT) AORTIC VALVE MEAN PG 2 mmHg EJECTION FRACTION 20 % LVEDD 6.6 cm Anatomical Region Laterality Modality Ultrasound 04/07/2024 8:08 AM TEACHERS' ASSISTANT Narrative 04/07/2024 9:36 AM TEACHERS' ASSISTANT ECHOCARDIOGRAM CASEY SOLER : 1950 73 years Study Date: 04/07/2024 8:08:24 AM Gender: M BP: 90/87 mmHg Height: 172.00 cm BSA: 1.94 m Weight: 81.00 kg Tech: LETICIA Casas MD: GUILLE CHOI Site: [facility] Reading Location: [facility]W IP Patient Location: Inpatient. [...] documentation: 2 ml diluted Definity, lot #[id number], [facility]# [id number] was administered peripherally to enhance visualization of all left ventricular segments. . This study was interpreted by an [facility] accredited facility. Final Procedure Note Jayashree Velarde MD - 04/07/2024 ECHOCARDIOGRAM CASEY SOLER : 1950 73 years Study Date: 04/07/2024 8:08:24 AM Gender: M BP: 90/87 mmHg Height: 172.00 cm BSA: 1.94 m Weight: 81.00 kg Tech: LETICIA Casas MD: GUILLE CHOI Site: [facility] Reading Location: [facility] IP Patient Location: Inpatient. [...] documentation: 2 ml diluted Definity, lot #[id number], [facility]#[id number] was administered peripherally to enhance visualization of allleft ventricular segments. . This study was interpreted by an [facility] accredited facility. Final us Guille Choi NP ECHO ORD Final Result * (ABNORMAL) LACTATE VENOUS (04/07/2024 6:20 AM TEACHERS' ASSISTANT) Only the most recent of3 resultswithin the time period is included. Pathologist [facility] LACTATE,VENOUS 2.5(H) 0.5 - 2.0 mmol/L 04/07/2024 7:32 AM TEACHERS' ASSISTANT [facility] Blood BLOOD SPECIMEN / Unknown Venipuncture / Unknown 04/07/2024 6:20 AM TEACHERS' ASSISTANT 04/07/2024 6:59 AM TEACHERS' ASSISTANT us Guille Choi NP CHEMISTRY Final Result [facility] [address] [place] [address], * SCAN-CARDIAC STRIP (04/07/2024 5:29 AM TEACHERS' ASSISTANT) us Scanner OTHER Final Result * SCAN-CARDIAC STRIP (04/07/2024 3:14 AM TEACHERS' ASSISTANT) us Scanner OTHER Final Result * TYPE & SCREEN (04/07/2024 12:39 AM TEACHERS' ASSISTANT) Pathologist [facility] ABORH A Rh Positive 04/07/2024 2:10 AM TEACHERS' ASSISTANT [facility] ANTIBODY SCREEN Negative Negative 04/07/2024 2:10 AM TEACHERS' ASSISTANT [facility] SPECIMEN EXPIRATION DATE/TIME 04/10/24 23:59 04/07/2024 2:10 AM TEACHERS' ASSISTANT [facility] Blood BLOOD SPECIMEN / Unknown Butterfly / Unknown 04/07/2024 12:39 AM TEACHERS' ASSISTANT 04/07/2024 1:05 AM TEACHERS' ASSISTANT Guille Choi SENIOR DATA ANALYST BLOOD BANK Final Result Performing Organization Address [facility]/ZIP Co de Phone Number [facility] LAB BLOOD BANK [address] [place] [address], * (ABNORMAL) Iron plus iron binding cap AM (04/07/2024 12:39 AM TEACHERS' ASSISTANT) Pathologist [facility] IRON 57(L) 61 - 157 ug/dL 04/07/2024 2:03 AM TEACHERS' ASSISTANT [facility] LABORAT[facility] UIBC (UNSATURATED) 229 112 - 347 ug/dL 04/07/2024 2:03 AM TEACHERS' ASSISTANT [facility] LABOR[facility]ORY IRON BINDING CAPACITY 286 250 - 400 ug/dL 04/07/2024 2:03 AM TEACHERS' ASSISTANT [facility] LABOR[facility] IRON,% SATURATION 20 14 - 50 % 04/07/2024 2:03 AM TEACHERS' ASSISTANT [facility] LABORAT[facility] Blood BLOOD SPECIMEN / Unknown Butterfly / Unknown 04/07/2024 12:39 AM TEACHERS' ASSISTANT 04/07/2024 1:05 AM TEACHERS' ASSISTANT Parmjit Berrios MD CHEMISTRY Final Resul t [facility] LAB[facility] [address] [place] [address], * (ABNORMAL) Reticulocyte count AM (04/07/2024 12:39 AM TEACHERS' ASSISTANT) Pathologist [facility] RETIC% 2.3(H) 0.5 - 1.5 % 04/07/2024 1:35 AM TEACHERS' ASSISTANT [facility] TRAL LABORATORY RETIC (ABSOLUTE) 0.09(H) 0.03 - 0.08 mil/cu mm 04/07/2024 1:35 AM TEACHERS' ASSISTANT [facility] Blood BLOOD SPECIMEN / Unknown Butterfly / Unknown 04/07/2024 12:39 AM TEACHERS' ASSISTANT 04/07/2024 1:05 AM TEACHERS' ASSISTANT us Parmjit Berrios MD HEMATOLOGY Final Resul t Performing Organization Address [facility] Co de Phone Number [facility] LABORATORY [address] [place] [address], * Ferritin AM (04/07/2024 12:39 AM TEACHERS' ASSISTANT) FERRITIN 275.0 30.0 - 400.0 ng/mL 04/07/2024 1:58 AM TEACHERS' ASSISTANT [facility] LABORATORY Blood BLOOD SPECIMEN / Unknown Butterfly / Unknown 04/07/2024 12:39 AM TEACHERS' ASSISTANT 04/07/2024 1:05 AM TEACHERS' ASSISTANT us Parmjit Berrios MD CHEMISTRY Final Resul t Performing Organization Address [facility] Co de Phone Number [facility] LAB[facility] [address] [place] [address], * (ABNORMAL) COMP METABOLIC PANEL (04/07/2024 12:39 AM TEACHERS' ASSISTANT) SODIUM 131(L) 136 - 145 mmol/L 04/07/2024 1:30 AM TEACHERS' ASSISTANT [facility] TRAL LABORATORY POTASSIUM 3.8 3.5 - 5.1 mmol/L 04/07/2024 1:30 AM TEACHERS' ASSISTANT [facility] TRAL LABORATORY CHLORIDE 86(L) 98 - 107 mmol/L 04/07/2024 1:30 AM TEACHERS' ASSISTANT [facility] LABORATORY CO2,TOTAL 23 22 - 29 mmol/L 04/07/2024 1:30 AM TEACHERS' ASSISTANT [facility] TRAL LABORATORY ANION GAP 22(H) 5 - 18 04/07/2024 1:30 AM [facility] GLUCOSE 110(H) 70 - 99 mg/dL 04/07/2024 1:30 AM [facility] CALCIUM 9.1 8.8 - 10.4 mg/dL 04/07/2024 1:30 AM [facility] LABORAT[facility] Comment: Reference ranges for this test were updated on 01/06/2024 to reflect our healthy population more accurately. Reference range changes are not retroactively applied to results, but previous results using the same methodology can be interpreted in the context of the new reference range. BUN 94(H) 8 - 23 mg/dL 04/07/2024 1:30 AM [facility] LABOR[facility] CREATININE 2.41(H) 0.70 - 1.20 mg/dL 04/07/2024 1:30 AM [facility] LABOR[facility]ORY BUN/CREAT RATIO 39(H) 10 - 20 1:30 AM [facility] LAB[facility] eGFR 28(L) >90 mL/min/1. 73m2 04/07/2024 1:30 AM [facility] LAB[facility] Comment:As of 2021, eG FR is calculated by the CKD-EPI creatinine equation without race adjustment. eGFR can be influenced by muscle mass, exercise, and diet. The reported eGFR is an estimation only and is only applicable if the renal function is stable. ALBUMIN 3.8(L) 4.0 - 4.9 g/dL 04/07/2024 1:30 AM [facility] TRAL LABORATORY PROTEIN,TOTAL 6.4 6.0 - 8.0 g/dL 04/07/2024 1:30 AM [facility] LABOR[facility] BILIRUBIN,TOTAL 0.7 0.0 - 1.2 mg/dL 04/07/2024 1:30 AM [facility] LAB[facility] ALK PHOSPHATASE 96 40 - 129 IU/L 04/07/2024 1:30 AM [facility] ALT (SGPT) 9(L) 10 - 50 IU/L 04/07/2024 1:30 AM [facility] LAB[facility] AST (SGOT) 22 10 - 50 IU/L 04/07/2024 1:30 AM TEACHERS' ASSISTANT [facility] LABORATORY-LI TRAL LABORATORY Blood BLOOD SPECIMEN / Unknown Butterfly / Unknown 04/07/2024 12:39 AM TEACHERS' ASSISTANT 04/07/2024 1:05 AM TEACHERS' ASSISTANT us Guille Choi NP CHEMISTRY Final Result [facility] LABOR[facility] [address] [address], [place] * XR CHEST 1 VIEW PORTABLE (04/06/2024 8:19 PM TEACHERS' ASSISTANT) Anatomical Region Laterality Modality HEART, THORAX, CHEST Computed Ra diography 04/06/2024 8:19 PM TEACHERS' ASSISTANT Impressions 04/06/2024 8:48 PM TEACHERS' ASSISTANT Stable size of cardiomediastinal silhouette with pacemaker/AICD leads overlying the right atrium and right ventricle. Likely pulmonary vascular congestion with subtle interstitial opacities in the lung bases, right greater than left, differential includes mild edema and atypical infectious/inflammatory process. No definite pleural effusion or pneumothorax. No acute bony abnormality. Narrative 04/06/2024 8:48 PM TEACHERS' ASSISTANT For Patients: As a result of the Cures Act, medical imaging exams and procedure reports are released immediately into your electronic medical record. You may view this report before your referring provider. If you have questions, please contact your health care provider. EXAM: XR CHEST 1 VIEW PORTABLE LOCATION: [facility] DATE: 04/06/2024 INDICATION: Shortness of breath COMPARISON: Chest radiograph 04/09/2023. Procedure Note Derek Jain MD - 04/06/2024 For Patients: As a result of the Cures Act, medical imagingexams and procedure reports are released immediately into your electronicmedical record. You may view this report before your referring provider.If you have questions, please contact your health care provider. EXAM: XR CHEST 1 VIEW PORTABLE LOCATION: [facility] DATE: 04/06/2024 INDICATION: Shortness of breath COMPARISON: [...] * (ABNORMAL) TROPONIN I (04/06/2024 7:53 PM TEACHERS' ASSISTANT) Only the most recent of2 resultswithin the time period is included. Pathologist [facility] TROPONIN I KELLI 0.043(HH) <0.030 ng/mL 04/06/2024 8:31 PM TEACHERS' ASSISTANT [facility] Blood BLOOD SPECIMEN / Unknown Venipuncture / Unknown 04/06/2024 7:53 PM TEACHERS' ASSISTANT 04/06/2024 7:59 PM TEACHERS' ASSISTANT us John Ramirez MD CHEMISTRY Final Result [facility] [address] [place] [address], [place] [phone] * BEDSIDE US STUDY ARCHIVE (04/06/2024 3:07 PM TEACHERS' ASSISTANT) Narrative Charly Monroe MD - 04/06/2024 3:07 PM TEACHERS' ASSISTANT Jun Mar MD 04/06/2024 3:08 PM BEDSIDE [...] CBC WITH AUTO DIFFERENTIAL (04/06/2024 2:45 PM TEACHERS' ASSISTANT) Pathologist [facility] WHITE BLOOD COUNT 12.6 4.5 - 13.5 thou/cu mm 04/06/2024 3:10 PM TEACHERS' ASSISTANT [facility] RED BLOOD COUNT 4.39(L) 4.70 - 6.10 mil/cu mm 04/06/2024 3:10 PM [facility] HEMOGLOBIN 13.0(L) 13.5 - 17.5 g/dL 04/06/2024 3:10 PM [facility] HEMATOCRIT 39.5(L) 42.0 - 52.0 % 04/06/2024 3:10 PM [facility] MCV 90 80 - 94 fL 04/06/2024 3:10 PM [facility] MCH 29.6 27.0 - 31.0 pg 04/06/2024 3:10 PM [facility] MCHC 32.9(L) 33.0 - 36.0 g/dL 04/06/2024 3:10 PM [facility] RDW 17.4(H) 11.6 - 14.8 % 04/06/2024 3:10 PM [facility] PLATELET COUNT 341 130 - 400 thou/cu mm 04/06/2024 3:10 PM [facility] MPV 10.6(H) 7.4 - 10.4 fL 04/06/2024 3:10 PM [facility] NRBC 0.0 0.0 - 0.9 % 04/06/2024 3:10 PM [facility] % NEUT 85.1(H) 37.0 - 80.0 % 04/06/2024 3:10 PM [facility] % LYMPH 5.6(L) 10.0 - 50.0 % 04/06/2024 3:10 PM [facility] % MONO 6.8 0.0 - 12.0 % 04/06/2024 3:10 PM [facility] % EOS 0.6 0.0 - 7.0 % 04/06/2024 3:10 PM [facility] % BASO 0.4 0.0 - 2.5 % 04/06/2024 3:10 PM [facility] % IMMATURE GRAN (METAS,MYELOS,IN OS) 1.5 % 04/06/2024 3:10 PM TEACHERS' ASSISTANT [facility] ABSOLUTE NEUTROPHILS 10.7(H) 2.0 - 6.9 thou/cu mm 04/06/2024 3:10 PM TEACHERS' ASSISTANT [facility] ABSOLUTE LYMPHOCYTES 0.7 0.6 - 3.4 thou/cu mm 04/06/2024 3:10 PM TEACHERS' ASSISTANT [facility] ABSOLUTE MONOCYTES 0.9 0.0 - 1.0 thou/cu mm 04/06/2024 3:10 PM TEACHERS' ASSISTANT [facility] ABSOLUTE EOSINOPHILS 0.1 <=0.7 thou/cu mm 04/06/2024 3:10 PM TEACHERS' ASSISTANT [facility] ABSOLUTE BASOPHILS 0.1 <0.2 thou/cu mm 04/06/2024 3:10 PM TEACHERS' ASSISTANT [facility] ABSOLUTE IMMATURE GRANULOCYTES(MET ,MYELOS,PROS) 0.2 <0.3 thou/cu mm 04/06/2024 3:10 PM TEACHERS' ASSISTANT [facility] Blood BLOOD SPECIMEN / Unknown IV Start / Unknown 04/06/2024 2:45 PM TEACHERS' ASSISTANT 04/06/2024 3:00 PM TEACHERS' ASSISTANT Jun Mar MD HEMATOLOGY Final Result [facility] [address] [place] [address], * EXTRA TUBE GOLD/SST (04/06/2024 2:45 PM TEACHERS' ASSISTANT) Blood BLOOD SPECIMEN / Unknown Extra Tube / Unknown 04/06/2024 2:45 PM TEACHERS' ASSISTANT 04/06/2024 4:05 PM TEACHERS' ASSISTANT Charly Monroe MD LABORATORY Final Res ult [facility] [address] [place] [address], * TSH WITH REFLEX (04/06/2024 2:45 PM TEACHERS' ASSISTANT) TSH 3.73 0.35 - 4.94 uIU/mL 04/06/2024 3:43 PM TEACHERS' ASSISTANT [facility] Blood BLOOD SPECIMEN / Unknown IV Start / Unknown 04/06/2024 2:45 PM TEACHERS' ASSISTANT 04/06/2024 3:00 PM TEACHERS' ASSISTANT us Jun Mar MD CHEMISTRY Final Result Performing Organization Address [facility]/ZIP Co de Phone Number [facility] [address] [place] [address], * (ABNORMAL) BRAIN NATRIURETIC PEPTIDE (04/06/2024 2:45 PM TEACHERS' ASSISTANT) BRAIN JEANCARLOS PEPTIDE 993(H) <100 pg/mL 04/06/2024 3:30 PM TEACHERS' ASSISTANT [facility] Blood BLOOD SPECIMEN / Unknown IV Start / Unknown 04/06/2024 2:45 PM TEACHERS' ASSISTANT 04/06/2024 3:05 PM TEACHERS' ASSISTANT us Charly Monroe MD CHEMISTRY Final Res ult Performing Organization Address [facility]/ZIP Co de Phone Number [facility] [address] [place] [address], * SLIDE REVIEW (04/06/2024 2:45 PM TEACHERS' ASSISTANT) POIKILOCYTOSIS 1+ 04/06/2024 3:35 PM TEACHERS' ASSISTANT [facility] POLYCHROMASIA 1+ 04/06/2024 3:35 PM TEACHERS' ASSISTANT [facility] MORPHOLOGY COMMENT Ovalocytes Present 04/06/2024 3:35 PM TEACHERS' ASSISTANT [facility] MORPHOLOGY COMMENT Stomatocytes Present 04/06/2024 3:35 PM TEACHERS' ASSISTANT [facility] PLT COMMENT Adequate 04/06/2024 3:35 PM TEACHERS' ASSISTANT [facility] Blood BLOOD SPECIMEN / Unknown IV Start / Unknown 04/06/2024 2:45 PM TEACHERS' ASSISTANT 04/06/2024 3:00 PM TEACHERS' ASSISTANT us Jun Mar MD LABORATORY Final Result Performing Organization Address [facility]/ZIP Co de Phone Number [facility] [address] [place] [address], * (ABNORMAL) Heparin Level ( aka XA) (04/06/2024 2:45 PM TEACHERS' ASSISTANT) HEPARIN LEVEL <0.04(LL) 0.32 - 0.63 U/mL 04/06/2024 7:11 PM TEACHERS' ASSISTANT [facility] Blood BLOOD SPECIMEN / Unknown IV Start / Unknown 04/06/2024 2:45 PM TEACHERS' ASSISTANT 04/06/2024 6:09 PM TEACHERS' ASSISTANT us Jun Mar MD HEMATOLOGY Final Result Performing Organization Address [facility]/ZIP Co de Phone Number [facility] [address] [place] [address], * APTT (04/06/2024 2:45 PM TEACHERS' ASSISTANT) APTT 28 25 - 37 sec 04/06/2024 6:20 PM TEACHERS' ASSISTANT [facility] Blood BLOOD SPECIMEN / Unknown IV Start / Unknown 04/06/2024 2:45 PM TEACHERS' ASSISTANT 04/06/2024 6:09 PM TEACHERS' ASSISTANT Narrative [facility] - 04/06/2024 6:20 PM TEACHERS' ASSISTANT Therapeutic Range 64-83 seconds. us Jun Mar MD HEMATOLOGY Final Result Performing Organization Address [facility]/ZIP Co de Phone Number [facility] [address] [place] [address], * SCAN-CARDIAC STRIP (04/06/2024 12:00 AM TEACHERS' ASSISTANT) Narrative 04/06/2024 12:00 AM TEACHERS' ASSISTANT Ordered by an unspecified provider. Other Clinical Staff OTHER Final Resul t * SCAN-CARDIAC STRIP (04/06/2024 12:00 AM TEACHERS' ASSISTANT) Narrative 04/06/2024 12:00 AM TEACHERS' ASSISTANT Ordered by an unspecified provider. Other Clinical Staff OTHER Final Resul t * SCAN-CARDIAC STRIP (03/22/2024 12:00 AM TEACHERS' ASSISTANT) Narrative 03/22/2024 12:00 AM TEACHERS' ASSISTANT Ordered by an unspecified provider. us Other Clinical Staff OTHER Final Resul t * SCAN-CARDIAC STRIP (03/15/2024 12:00 AM TEACHERS' ASSISTANT) Narrative 03/15/2024 12:00 AM TEACHERS' ASSISTANT Ordered by an unspecified provider. us Other Clinical Staff OTHER Final Resul t * SCAN-CARDIAC STRIP (03/08/2024 12:00 AM TEACHERS' ASSISTANT) Narrative 03/08/2024 12:00 AM TEACHERS' ASSISTANT Ordered by an unspecified provider. us Other Clinical Staff OTHER Final Resul t * SCAN-CARDIAC STRIP (03/01/2024 12:00 AM TEACHERS' ASSISTANT) Narrative 03/01/2024 12:00 AM TEACHERS' ASSISTANT Ordered by an unspecified provider. us Other Clinical Staff OTHER Final Resul t * SCAN-CARDIAC STRIP (03/01/2024 12:00 AM TEACHERS' ASSISTANT) Narrative 03/01/2024 12:00 AM TEACHERS' ASSISTANT Ordered by an unspecified provider. us Other Clinical Staff OTHER Final Resul t * SCAN-CARDIAC STRIP (03/01/2024 12:00 AM TEACHERS' ASSISTANT) Narrative 03/01/2024 12:00 AM TEACHERS' ASSISTANT Ordered by an unspecified provider. us Other Clinical Staff OTHER Final Resul t * SCAN-CARDIAC STRIP (03/01/2024 12:00 AM TEACHERS' ASSISTANT) Narrative 03/01/2024 12:00 AM TEACHERS' ASSISTANT Ordered by an unspecified provider. us Other Clinical Staff OTHER Final Resul t * CT ABDOMEN PELVIS WO (01/16/2024 4:53 AM TEACHERS' ASSISTANT) Anatomical Region Laterality Modality Abdomen, Pelvis, AORTA, LIVER, SPLEEN Computed Tomography 01/16/2024 4:53 AM TEACHERS' ASSISTANT Impressions 01/16/2024 5:21 AM TEACHERS' ASSISTANT 1. No obstructing ureteral or bladder calculi. [...] fat-containing umbilical hernia. Narrative 01/16/2024 5:21 AM TEACHERS' ASSISTANT For Patients: As a result of the Cures Act, medical imaging exams and procedure reports are released immediately into your electronic medical record. You may view this report before your referring provider. If you have questions, please contact your health care provider. EXAM: CT ABDOMEN PELVIS WO LOCATION: [facility] DATE: 01/16/2024 INDICATION: Abdominal pain, acute, nonlocalized. [...] provider. EXAM: CT ABDOMEN PELVIS WO LOCATION: [facility] DATE: 01/16/2024 INDICATION: Abdominal pain, acute, nonlocalized. [...] 105 <=200 mg/dL 11/20/2023 3:06 PM CDT [facility] TRIGLYCERIDES 103 <150 mg/dL 11/20/2023 3:[address] [facility] HDL CHOLESTEROL 33(L) >40 mg/dL 3:06 PM CDT [facility] CHOL/HDL RATIO 3.18 <=4.00 11/20/2023 3:06 PM CDT [facility] LDL CHOLESTEROL 51 <=130 mg/dL 11/20/2023 3:06 PM CDT [facility] PATIENT STATUS NON-FASTI NG 11/20/2023 3:06 PM CDT [facility] Blood BLOOD SPECIMEN / Unknown Venipuncture / Unknown 11/20/2023 1:57 PM CDT 11/20/2023 2:09 PM CDT Shana Lozano DO CHEMISTRY Final Result [facility] [address] [place] [address], * CT CHEST SCREENING LOW DOSE WO [...] DOSE LUNG CANCER SCREENING CT CHEST LOCATION: [facility] DATE: 08/07/2023 INDICATION: Lung cancer screening. History [...] DOSE LUNG CANCER SCREENING CT CHEST LOCATION: [facility] DATE: 08/07/2023 INDICATION: Lung cancer screening. History [...] ve Non-React lisa 06/11/2022 4:14 PM CDT [facility] Comment:Antibodies to HCV no t detected; does not exclude the possibility of exposure to HCV. Blood BLOOD SPECIMEN / Unknown Venipuncture / Unknown 06/11/2022 2:16 PM CDT 06/11/2022 2:17 PM CDT Shananicolas Ariasa DO SEND OUTS Final Result Performing Organization Address [facility]/ZIP Co de Phone Number [facility] [address] [place] [address], [place] [phone] * HM COLONOSCOPY (08/14/2011) COLONOSCOPY Done [facility] 08/14/2011 Doctor Unknown HEALTH MAINT RESULTS Final Resul t Performing Organization Address [facility]/ZIP Co de Phone Number [facility] [address] [place] [address], [place] [phone] from Last 3 Months or Most Recently Relevant to Health Maintenance Insurance [facility] DUAL COMPLETE MEDICARE PART A HB ONLY [facility] MR [id number] [place] [id number] [facility] Advance Directives Documents on File Type Date Recorded Patient Teacher Education Instructor Expl anation Healthcare Directive 04/20/2024 5:43 AM [...] Code Status Discussion: Reviewed Preferences Care Teams Hyperbaric Technologist Relationship Specialty Start Date End Date Sadi Paul MD [address] [place] [address] PCP - General Family Practice 05/13/24 [facility] [address] [place] [address] 04/21/24
[2024-05-22 15:11] LABS: Basophils Absolute Auto 0.01 K/uL (0.00-0.30); Basophils Percent Auto 0.1 % (0.0-3.0); Eosinophils Absolute Auto 0.04 K/uL (0.00-0.50); Eosinophils Percent Auto 0.6 % (0.0-7.0); Hematocrit 37.8 % (37.0-53.0); Hemoglobin* 11.8 gm/dL (13.5-17.5); Immature Granulocytes Abs Auto 0.09 K/uL (0.00-0.30); Immature Granulocytes Pct Auto 1.3 %; Lymphocytes Percent Auto 6.9 % (20-44); Mean Corpuscular HGB Conc 31 gm/dL (32-36); Mean Corpuscular Hemoglobin 27 pg (26-34); Mean Corpuscular Volume 86 fL (80-100); Monocytes Percent Auto 6.6 % (0.0-11.0); Neutrophils Percent Auto 84.5 % (42.0-72.0); Platelet Count* 263 K/uL (140-440); RDW Coefficient of Variation % 19.4 % (11.5-15.5); Red Blood Count 4.38 m/uL (4.30-5.90); White Blood Count* 6.99 K/uL (4.50-11.00)
[2024-05-22 15:15] LABS: Slide Review Reflex No
[2024-05-22 15:17] LABS: Troponin, Point-of-Care* 0.04 ng/ml (0.01-0.04)
[2024-05-22 15:23] LABS: Chloride* 98 mmol/L (96-114); Potassium* 4.1 mmol/L (3.6-5.1); Sodium* 131 mmol/L (135-149)
[2024-05-22 15:26] LABS: Anion Gap 14 mEq/L (7-15); Blood Urea Nitrogen* 48 mg/dL (7-30); Calcium* 8.8 mg/dL (8.4-10.6); Carbon Dioxide* 19 mmol/L (20-32); Creatinine* 2.4 mg/dL (0.5-1.5); Est. Creatinine Clearance* 26.92; Estimated Glomerular Filt Rate 28 ml/min; Glucose* 93 mg/dL (60-115)
[2024-05-22 15:27] LABS: INR 2.57 (0.91-1.10); Prothrombin Time 28.7 Seconds
[2024-05-22 15:36] LABS: NT Pro B Type NatriureticPept* 19100 pg/mL
[2024-05-22 15:45] LABS: PCR FLU A Negative PCR FLU A (Negative); PCR FLU B Negative PCR FLU B (Negative); SARS PCR* Negative SARS-CoV-2 (Negative)
[2024-05-22] MEDS: ONDANSETRON 2 MG/ML inj 4 MG IVP (16:25)
== END 2024-05-22 16:54 | disposition home or self-care (01) ==
PROVIDERS: Emergency Provider Emergency Medicine Emergency Medical Services; PCP Family Medicine
DX: I34.0 Nonrheumatic mitral (valve) insufficiency (principal); I50.9 Heart failure, unspecified; R11.0 Nausea
CPT/HCPCS: 36415; 71045; 80048; 83880; 84484; 85025; 85610; 87631; 93005; 96374; 99284; 99285; J2405

== ENCOUNTER 2024-06-03 17:22 | Emergency (ER) | payer MEDICARE, SELFPAY ==
--- OUTSIDE RECORDS SUMMARY | 2024-06-03 17:25 | XMS_ITS | Clinical Summary ---
Author Organization [employer] [facility] Address [address] [place] [id number] Care Team Providers Care Slot Shift Manager Name Role Phone [facility] [place] Unavailable Sadi Paul MD Primary Care Provider [facility], [place] Unavailable [phone] Allergies Active Allergy Reactions Criticality Noted Date [...] Spasm PO 1st choice (.). 20 Tablet 024 Active Additional Information Patient not taking.Informant: Patient's Recall, Reported on 05/03/2024 magnesium oxide 250 mg magnesium tabletIndications:Muscl e cramps Take 1 Tablet (250 mg) by mouth once daily. 30 Tablet 11 024 Active Additional Information Patient not taking.Informant: [...] meals. 90 Tablet 04/21/19 25 2:46 PM FOREST PATHOLOGY ASSOCIATE PROFESSOR 025 Active pramipexole (MIRAPEX) 0.25 mg tabletIndications:Restl ess leg Take one-half Tablet (0.125 mg) by mouth at bedtime. 30 Tablet 04/21/19 25 2:46 PM FOREST PATHOLOGY ASSOCIATE PROFESSOR 025 Active sennosides (SENNA) 8.6 mg tabletIndications:Other constipation Take 1 to 2 Tablets (8.6-17.2 mg) by mouth two times daily. 60 Tablet 04/21/19 25 2:46 PM FOREST PATHOLOGY ASSOCIATE PROFESSOR 025 Active warfarin (COUMADIN) 1 mg tabletIndications:Atria l fibrillation with rapid ventricular response (HC) Take 1 Tablet (1 mg) by mouth once daily. Take 1mg daily. INR check on Sunday 04/23. Further dosing instructions pending INR value at that time. 30 Tablet 04/21/19 25 2:46 PM FOREST PATHOLOGY ASSOCIATE PROFESSOR 025 Active midodrine (PROAMATINE) 2.5 mg tabletIndications:Hypot ension, unspecified hypotension type Take 1 tablet (2.5mg) by mouth three times daily (at 8AM, 12PM, and 4PM) 90 Tablet 04/21/19 2:46 PM FOREST PATHOLOGY ASSOCIATE PROFESSOR 025 Active amiodarone (CORDARONE) 200 mg tabletIndications:Atria l fibrillation with rapid ventricular response (HC) Take 1 tablet (200 mg) by mouth twice daily. Then on 05/02/24 decrease to 200 mg once daily 90 Tablet 1 04/21/19 25 2:46 PM FOREST PATHOLOGY ASSOCIATE PROFESSOR 025 Active torsemide (DEMADEX) 20 mg tabletIndications:Acute on chronic systolic and diastolic heart failure, NYHA class 3 (HC) Take one tablet by mouth as needed for weight gain of 3 lb in 1 day or 5 lb in 1 week 30 Tablet 2 04/21/19 5:30 PM FOREST PATHOLOGY ASSOCIATE PROFESSOR 025 Active atorvastatin (LIPITOR) 40 mg tabletIndications:Pure hypercholesterolemia Take 1 Tablet (40 mg) by mouth once daily. 30 Tablet 3 04/21/19 5:30 PM FOREST PATHOLOGY ASSOCIATE PROFESSOR 025 Active WalkerIndications:CHF (congestive heart failure), NYHA class IV, acute on chronic, combined (HC) Walker with wheels,seat,hand brakes,and basket for home use. 1 Each [...] tongue every 8 hours if needed for Nausea/Vomiting. 10 Tablet 025 Active Hospital, Clinic, or Other Facility Administered Medication Ordered Dose Route Frequency Start Date End Date Status cyanocobalamin (VITAMIN B12) 1,000 mcg/mL injection 1,000 mcgIndications:B12 deficiency 1000 mcg IM Q 4 WEEKS (28 days) 12/22/2023 11/21/2024 Active Active Problems Problem Noted Date Diagnosed Date Encounter for admission to hospice care 03/26/20 25 Overview (05/26/2024): HOSPICE CONSULT ONLY. /[facility] Physician Note Verification of Hospice Diagnosis Casey Soler Date of : 1950 Date of Onset Primary Terminal Diagnosis: Chronic systolic CHF 2020 Secondary Diagnoses Contributing to Terminal Prognosis: Ischemic cardiomyopathy 2. Coronary artery disease 3. Mitral valve regurgitaion Treatments NOT COVERED by Hospice Associated Diagnosis Rationale for non coverage Amiodarone Atorvastatin (Lipitor) Vit B12 injections Treatment not related to terminal diagnosis or prognosis Warfarin Preventive anticoagulation no longer indicated in the setting of terminal illness. Casey Soler is a 73 y.o. male with a history of ischemic cardiomyopathy, ejection fraction 20%, coronary artery disease, mitral valve regurgitation, chronic kidney disease, diabetes melliltus type II, obstructive sleep apnea on CPAP, tobacco use, and pulmonary emphysema. He was hospitalized 04/06- at [facility], with atrial fibrillation rapid ventricular response and acutely decompensated systolic heart failure, S/P transesophogeal echocardiography direct current cardioversion on 04/12, cardiogenic shock and he was started on dobutamine. He did not tolerate dobutamine wean on 04/16 and is inotrope dependent. Dobutamine restarted at 1.5 mcg/kg/min on 04/19. He had recent Cardiology follow up 05/03 [facility] with Dr. Lauro Kendall MD. He is followed by Home Care. Braxton Alcala MD [facility] and Palliative Care Vasyl Alcala MD .................... 05/26/2024 11:39 AM Atrial fibrillation with rapid ventricular respo nse 04/07/2024 Acute GI bleeding 04/07/2024 Chronic heart failure with r educed ejection fraction (HFrEF, <= 40%) 01/16/2024 Chronic kidney disease, stage 3b 06/19/2023 AGE (acute gastroenteritis) 04/17/2023 DAVID (acute kidney injury) 04/17/2023 Regional enteritis of large intestine 11/05/2022 Colon cancer screening 09/09/2022 Influenza A 02/25/2021 Pulmonary emphysema 02/12/2021 Pure hypercholesterolemia 12/07/2020 Acute systolic heart failure 11/25/2020 TIARRA (obstructive sleep apnea) 07/03/2017 Unspecified essential hypertension 05/26/2013 Other and unspecified hyperlipidemia 05/26/2013 Coronary atherosclerosis of washoe coronary arianne ry 05/26/2013 Other B-complex deficiencies 02/11/2013 Regional enteritis of large intestine 10/22/2011 Type II or unspecified type diabetes mellitus without mention of complication, uncontrolled 02/14/2011 Resolved Problems Problem Noted Date Diagnosed Date Resolved Date Congestive heart failure, un specified HF chronicity, unspecified heart failure type 04/21/2024 05/21/2024 Acute renal failure superimp osed on stage 3b chronic kidney disease 04/07/2024 05/27/2024 Lactic acidosis 04/07/2024 05/27/2024 Cardiogenic shock 04/07/2024 05/27/2024 Acute on chronic systolic an d diastolic heart failure, NYHA class 3 04/07/2024 05/27/2024 Type 2 diabetes mellitus wit hout complication, without long-term current use of insulin 04/17/2023 05/27/2024 Hypokalemia 04/17/2023 05/27/2024 Anesthesia complication 11/05/202205/02 Overview (11/05/2022): Needs higher doses of anesthesia and wakes up slowly sometimes with nausea Ischemic cardiomyopathy 11/05/202205/02 Hypoxia 03/01/2021 05/27/2024 Ischemic cardiomyopathy 12/07/202005/02 Acute systolic congestive heart failure 12/02/2020 05/27/2024 Cellulitis and abscess of unspecified site 03/13/2013 03/17/2017 Coronary atherosclerosis of unspecified type of vessel, washoe or graft 02/11/2013 03/17/2017 Chest pain, unspecified 01/19/201303/03 Acute bronchitis 06/01/2012 03/17/2017 Acute conjunctivitis, unspecified 05/01/2012 03/17/2017 Other and unspecified noninf ectious gastroenteritis and colitis(558.9) 08/28/201103/17 Leukocytosis, unspecified 02/14/2011 Blood in stool 02/14/2011 03/17/2017 Acute gastritis without mention of hemorrhage 02/12/20 11 03/17/2017 Acute on chronic systolic heart failure 05/27/2024 Encounters Date Type Department Care Team Description 06/04/19 25 2:45 PM CDT Home Care Visit [facility] [address] [place] [address] Joceline Edouard IMAGING NURSE - HOME VISIT 06/03/19 25 9:30 AM CDT Home Care Visit [facility] [address] [place] [phone] Rowena Pulido OT OT - HOME VISIT 06/02/19 25 8:30 AM CDT Home Care Visit [facility] [address] [place] [phone] Valentina Riley, RN SN - HOME VISIT 06/02/19 25 [facility] Only [facility] [address] [place] [address] [place] [address] Lauro Kendall MD Lab 06/02/19 25 Orders Only [facility] [address] [facility] [place] [address] Lauro Kendall MD Lab (Home care) 06/01/19 25 2:30 PM CDT Home Care Visit [facility] [address] [place] [address] Joceline Edouard IMAGING NURSE - HOME VISIT 05/29/19 25 1:00 PM CDT Home Care Visit [facility] [address] [place] [phone] Valentina Riley, RN SN - LONG VISIT (>90 MINUTES) 05/29/19 25 10:30 AM CDT Home Care Visit [facility] [address] [place] [phone] Nicolas Sanz, PT PT - HOME VISIT 05/29/19 25 Home Care Visit [facility] [address] [place] [phone] Nicolas Sanz, PT CARE COORDINATION 05/29/19 Travel 05/28/19 2:15 PM CDT Home Care Visit [facility] [address] [place] [address], [place] [address] Joceline Edouard IMAGING NURSE - HOME VISIT 05/28/19 11:30 AM CDT Home Care Visit [facility] [address] [place] [address], [place] [address] Rowena Pulido, SIRIA OT - REASSESSMENT 05/27/19 9:30 AM CDT Home Care Visit [facility] [address] [place] [address], [place] [address] Amparo Hensley, INFO ANALYST INFORMATIONAL VISIT 05/27/19 Travel 05/26/19 Home Care Visit [facility] [address] [place] [address], [place] [address] Tiffany Fang, OT PARIKH SUPERVISION 05/26/19 Transcribe Orders [facility] [address] [place] [address], [place] [address] [facility] [place] 05/25/19 2:30 PM CDT Home Care Visit [facility] [address] [place] [address], [place] [address] Joceline Edouard IMAGING NURSE - HOME VISIT 05/22/19 1:15 PM CDT Home Care Visit [facility] [address] [place] [address], [place] [address] Nicolas Sanz, PT PT - REASSESSMENT 05/22/19 11:30 AM CDT Home Care Visit [facility] [address] [place] [address], [place] [address] Valentina Riley, AMELIA SN - LONG VISIT (>90 MINUTES) 05/22/19 Home Care Visit [facility] [address] [place] [address], [place] [address] Nereida Dominguez LISW TECHNICAL SERVICE REPRESENTATIVE - INITIAL ASSESSMENT 05/22/19 Anticoagulation (warfarin) [address] [address] Shana Lozano, DO Anticoagulation 05/21/19 25 2:45 PM CDT Home Care Visit [facility] [address] [place] [phone] Joceline Edouard IMAGING NURSE - HOME VISIT 05/20/19 25 Home Care Visit [facility] [address] [place] [phone] Valentina Riley, RN CARE COORDINATION 05/20/19 25 Home Care Visit [facility] [address] [place] [phone] Tiffany Fang, OT PARIKH SUPERVISION 05/19/19 25 Home Care Visit [facility] [address] [place] [phone] Edis Camargo, TREE AND SHRUB WORKER CARE COORDINATION 05/18/19 25 Home Care Visit [facility] [address] [place] [phone] Valentina Riley, RN ADMIT NOTE 05/15/19 25 Travel 05/15/19 25 Home Care Visit [facility] [address] [place] [phone] Monisha Yo, PARIKH CARE COORDINATION 05/14/19 25 4:00 PM CDT Home Care Visit [facility] [address] [place] [phone] Joceline Edouard IMAGING NURSE - HOME VISIT 05/14/19 25 1:00 PM CDT Home Care Visit [facility] [address] [place] [phone] Valentina Riley, AMELIA SN - LONG VISIT (>90 MINUTES) 05/14/19 25 Telephone [facility] [address], [place] [address] Valentina Riley, rehab aide 05/12/19 25 10:30 AM CDT Home Care Visit [facility] [address] [place] [phone] Nicolas Sanz, PT PT - HOME VISIT 05/12/19 Home Care Visit [facility] [address] [place] [address], [place] [address] Edis Camargo, TREE AND SHRUB WORKER CARE COORDINATION 05/12/19 Travel 05/11/19 3:00 PM CDT Home Care Visit [facility] [address] [place] [phone] Joceline Edouard IMAGING NURSE - HOME VISIT 05/11/19 11:00 AM CDT Home Care Visit [facility] [address] [place] [phone] Valentina Riley, AMELIA SN - HOME VISIT 05/10/19 Nurse Triage [facility] [address] [address] Shana Lozano, DO Home Care; Diarrhea 05/08/19 4:00 PM FOREST PATHOLOGY ASSOCIATE PROFESSOR Home Care Visit [facility] [address] [place] [phone] Joceline Edouard IMAGING NURSE - HOME VISIT 05/08/19 10:30 AM FOREST PATHOLOGY ASSOCIATE PROFESSOR Home Care Visit [facility] [address] [place] [phone] Nicolas Sanz, PT PT - HOME VISIT 05/07/19 1:30 PM FOREST PATHOLOGY ASSOCIATE PROFESSOR Home Care Visit [facility] [address] [place] [phone] Valentina Riley, RN SN - LONG VISIT (>90 MINUTES) 05/07/19 Telephone [facility] [address] [address] Valentina Riley, rehab aide 05/05/19 1:30 PM FOREST PATHOLOGY ASSOCIATE PROFESSOR Home Care Visit [facility] [address] [place] [phone] Tiffany Fang, OT OT - HOME VISIT 05/05/19 10:30 AM FOREST PATHOLOGY ASSOCIATE PROFESSOR Home Care Visit [facility] [address] [place] [address] Nicolas Sanz, PT PT - HOME VISIT 05/05/19 9:30 AM FOREST PATHOLOGY ASSOCIATE PROFESSOR Home Care Visit [facility] [address] [place] [address] Joceline Edouard IMAGING NURSE - HOME VISIT 05/05/19 Travel 05/04/19 1:00 PM FOREST PATHOLOGY ASSOCIATE PROFESSOR Home Care Visit [facility] [address] [place] [address] Valentina Riley, RN SN - LONG VISIT (>90 MINUTES) 05/04/19 8:30 AM FOREST PATHOLOGY ASSOCIATE PROFESSOR Office Visit [facility] [id number] [place] [address] [address] [place] [address] Lauro Kendall MD Follow Up (POST HOSPITAL FOLLOW UP. LABS DONE PRIOR AT HOME HEALTH CARE./PT states feeling OK/no cardiac symptoms today /Establish care ) 05/04/19 Travel 04/30/19 2:30 PM FOREST PATHOLOGY ASSOCIATE PROFESSOR Home Care Visit [facility] [address] [place] [address] Nicolas Sanz, PT PT - HOME VISIT 04/30/[address] [address] Shana Lozano, DO Weight (Weight gain) 04/30/19 Travel 04/29/19 12:30 PM FOREST PATHOLOGY ASSOCIATE PROFESSOR Home Care Visit [facility] [address] [place] [address] Valentina Riley, RN SN - LONG VISIT (>90 MINUTES) 04/29/19 Home Care Visit [facility] [address] [place] [address] Nicolas Sanz, PT CARE COORDINATION 04/28/19 3:00 PM FOREST PATHOLOGY ASSOCIATE PROFESSOR Home Care Visit [facility] [address] [place] [phone] Nicolas Sanz, PT PT - INITIAL ASSESSMENT 04/28/19 9:00 AM FOREST PATHOLOGY ASSOCIATE PROFESSOR Home Care Visit [facility] [address] [place] [address] Anabella Rico, SENIOR NET C DEVELOPER SENIOR NET C DEVELOPER - HOME VISIT 04/28/[address] [address] Shana Lozano, DO Questions (Verbal orders) 04/28/19 Travel 04/27/19 1:00 PM FOREST PATHOLOGY ASSOCIATE PROFESSOR Home Care Visit [facility] [address] [place] [address] Tiffany Fang, OT OT - INITIAL ASSESSMENT 04/27/19 11:30 AM FOREST PATHOLOGY ASSOCIATE PROFESSOR Anticoagulation (warfarin) [address] [address] Anticoagulation 04/27/19 9:40 AM FOREST PATHOLOGY ASSOCIATE PROFESSOR Office Visit [address] [address] Shana Lozano DO Hospital F/U (04/06/2024-04/21/2024 Afib with RVR) 04/27/19 Travel 04/26/[address] [address] Ignacio Willett MD Care Coordination (EP called and spoke with patient who reports that he moved in with his daughter which is 100 [address] from [facility]. EP confirmed with patient that he would be discharged from CR at [facility]. Pt confirmed he would check out places near for CR as needed. ) 04/26/19 Orders Only [address] [address] Shana Lozano, DO <No scans attached> 04/26/19 Orders Only [address] [address] Shana Lozano, DO <No scans attached> 02/23/20 25 1:00 PM FOREST PATHOLOGY ASSOCIATE PROFESSOR Home Care Visit [facility] [address] [place] [address] Staci Lara, AMELIA SN - HOME VISIT 04/23/19 25 1:45 PM FOREST PATHOLOGY ASSOCIATE PROFESSOR Home Care Visit [facility] [address] [place] [address] Joceline Edouard IMAGING NURSE - HOME VISIT 04/23/19 25 1:00 PM FOREST PATHOLOGY ASSOCIATE PROFESSOR Home Care Visit [facility] [address] [place] [address] Valentina Riley, AMELIA SN - LONG VISIT (>90 MINUTES) 04/23/19 9:00 AM FOREST PATHOLOGY ASSOCIATE PROFESSOR Anticoagulation (warfarin) [facility] [address] [place] [address] Anticoagulation 04/23/19 25 Orders Only [facility] [address] [place] [address] Shana Lozano, DO Lab 04/23/19 25 Orders Only [facility] [address] [place] [phone] Shana Lozano DO Lab (Home care) 04/23/19 25 Orders Only [facility] [address] [place] [address] [place] [address] Abi Valdovinos, FRANKY <No scans attached> 04/23/19 25 Travel 04/22/19 25 1:00 PM FOREST PATHOLOGY ASSOCIATE PROFESSOR Home Care Visit [facility] [address] [place] [address] Valentina Riley, AMELIA SN IV - START OF CARE 04/22/19 Plan of Care Documentation [facility] [address] [place] [phone] 04/22/19 25 Telephone [facility] [address] [place] [phone] Valentina Riley, rehab aide 04/22/19 25 Telephone [facility] [address] [place] [address] Shana Lozano, DO Outside Order (WALKER / PORTABLE URINAL ) 04/22/19 25 Home Care Visit [facility] [address] [place] [address] Valentina Riley, RN CARE COORDINATION 04/22/19 25 Telephone [facility] [address] [place] [address] Ignacio Willett MD Care Coordination (EP attempted phone contact with patient to touch base regarding cardiac rehab plan. No answer and VM is full. EP to follow-up as needed. ) 04/21/19 25 Telephone [facility] [address] [place] [address] Shana Lozano, DO Anticoagulation 04/19/19 25 Telephone [facility] [address] [place] [address] Shana Lozano, Questions (Home care orders ) 04/17/19 25 Refill [facility] [address] [place] [address] Ignacio Willett MD Refill Request (Isosorbide Mononitrate) 04/12/19 25 10:26 AM FOREST PATHOLOGY ASSOCIATE PROFESSOR Anesthesia Event [facility] [address] [place] [address] Gerardo Garza MD Schlatter, Charles Patrick, CARDIAC CATHETERIZATION TECHNICIAN 04/08/19 25 12:21 PM FOREST PATHOLOGY ASSOCIATE PROFESSOR Anesthesia Event [facility] [address] [place] [address] Leonardo Campbell MD Reiter, Kyle, CARDIAC CATHETERIZATION TECHNICIAN 04/08/19 25 11:26 AM FOREST PATHOLOGY ASSOCIATE PROFESSOR - 04/08/19 25 12:12 PM FOREST PATHOLOGY ASSOCIATE PROFESSOR Surgery [facility] [address] [place] [address] Chepe Francis MD ESOPHAGOGASTRODUODENOSCOPY WITH GASTRIC BIOPSY 04/06/19 25 11:21 PM FOREST PATHOLOGY ASSOCIATE PROFESSOR - 04/21/19 25 5:55 PM FOREST PATHOLOGY ASSOCIATE PROFESSOR Hospital Encounter [facility] [address] [place] [address] [facility], [facility] General Medicine [facility], [facility] Hospitalists Of [employer], MD Ulysses Boles, MD Ruel Garcia, MD Dmitriy Salinas, Rebecca [...] Discharge Disposition: Home Health 04/06/19 2:41 PM FOREST PATHOLOGY ASSOCIATE PROFESSOR - 04/06/19 10:17 PM FOREST PATHOLOGY ASSOCIATE PROFESSOR Emergency [address] [address] Charly Monroe MD Binder, Jacob A, MD Atrial fibrillation, unspecified type (HC) (Primary Dx); Hypotension, unspecified hypotension type; Lightheadedness; DAVID (acute kidney injury) Discharge Disposition: Short Term/PPS Hosp 04/06/19 25 1:56 PM FOREST PATHOLOGY ASSOCIATE PROFESSOR - 04/06/19 25 2:40 PM FOREST PATHOLOGY ASSOCIATE PROFESSOR Hospital Encounter [address] [address] Ignacio Willett MD 04/06/19 Telephone [facility] [address] [place] [address] Lukasz Bright MD 04/06/19 25 Travel 04/05/19 Telephone [facility] [address] [place] [address] Ignacio Willett MD Atrial Fibrillation 03/30/19 25 1:47 PM FOREST PATHOLOGY ASSOCIATE PROFESSOR - 03/30/19 25 11:59 PM FOREST PATHOLOGY ASSOCIATE PROFESSOR Hospital Encounter [address] [address] Ignacio Willett MD 03/30/19 25 Travel 03/24/19 25 1:00 PM FOREST PATHOLOGY ASSOCIATE PROFESSOR - 03/24/19 25 11:59 PM FOREST PATHOLOGY ASSOCIATE PROFESSOR Hospital Encounter [place] [address] [place] [address] Ignacio Willett MD 03/24/19 25 Travel 03/22/19 25 1:00 PM FOREST PATHOLOGY ASSOCIATE PROFESSOR - 03/22/19 25 11:59 PM FOREST PATHOLOGY ASSOCIATE PROFESSOR Hospital Encounter [place] [address] [place] [address] Ignacio Willett MD 03/22/19 25 Travel 03/15/19 25 12:50 PM FOREST PATHOLOGY ASSOCIATE PROFESSOR - 03/15/19 25 11:59 PM FOREST PATHOLOGY ASSOCIATE PROFESSOR Hospital Encounter [place] [address] [place] [address] Ignacio Willett MD 03/15/19 25 Travel 03/10/19 25 12:50 PM FOREST PATHOLOGY ASSOCIATE PROFESSOR - 03/10/19 25 11:59 PM FOREST PATHOLOGY ASSOCIATE PROFESSOR Hospital Encounter [place] [address] [place] [address] Ignacio Willett MD 03/10/19 25 Travel 03/08/19 25 1:00 PM FOREST PATHOLOGY ASSOCIATE PROFESSOR - 03/08/19 25 11:59 PM FOREST PATHOLOGY ASSOCIATE PROFESSOR Hospital Encounter [address] [address] Ignacio Willett MD 03/08/19 25 Travel from Last 3 Months Immunizations Immunization Administration Dates Next Due COVID-19 VACCINE COMIRNATY ([employer] 30MCG/0.3ML) 12YO+ PFS 12/18/2023 COVID-19 VACCINE SPIKEVAX [...] on file Legal Sex Male 5:26 PM FOREST PATHOLOGY ASSOCIATE PROFESSOR Gender Identity Not on file Sexual Orientation Not on file Obstetrics History Last Filed Vital Signs Vital Sign Reading Time Taken Comments Blood Pressure 110/79 06/01/2024 8:40 AM CDT Pulse 68 06/02/2024 10:33 AM CDT Temperature 36.2 C (97.2 F) 06/02/2024 10:33 AM CDT Respiratory Rate 18 06/02/2024 10:33 AM CDT Oxygen Saturation 98% 06/02/2024 10:33 AM CDT Inhaled Oxygen Concentration - - Weight 78.9 kg (174 lb) 06/01/2024 8:40 AM CDT Height 175.3 cm (5' 9) 05/03/2024 8:40 AM FOREST PATHOLOGY ASSOCIATE PROFESSOR Body Mass Index 25.7 05/03/2024 8:40 AM FOREST PATHOLOGY ASSOCIATE PROFESSOR Plan of Treatment Upcoming Encounters Date Type Department Care Team (Late st Contact Info) Description 06/04/2024 9:00 AM CDT Home Care Visit [address] [phone] Nicolas Sanz, PT [address] [place], [place] [phone] 06/04/2024 1:00 PM CDT Home Care Visit [place] [address] [place] [phone] Valentina Riley RN 06/07/2024 11:00 AM CDT Home Care Visit [address] [address] Valentina Riley, AMELIA 06/08/2024 4:00 AM CDT Home Care Visit [facility] [address] [place] [address] Joceline Edouard 06/08/2024 8:30 AM CDT Office Visit [facility] [address] [facility] [address] [place] [address] Lauro Kendall MD [address] [facility] [address] [place] [address] 06/10/2024 4:00 AM CDT Home Care Visit [place] [address] [place] [address] Joceline Edouard 06/10/2024 5:00 AM CDT Home Care Visit [place] [address] [place] [address] Monisha Yo, PARIKH [address] [place] [address] 06/11/2024 3:00 AM CDT Home Care Visit [place] [address] [place] [phone] Nicolas Sanz, PT [address] [place] [address] 06/11/2024 12:00 PM CDT Home Care Visit [place] [address] [place] [phone] Valentina Riley, AMELIA 06/14/2024 1:00 PM CDT Home Care Visit [address] [phone] Valentina Riley, RN 06/15/2024 4:00 AM CDT Home Care Visit [address] [phone] Joceline Edouard 06/16/2024 1:00 PM CDT Home Care Visit [facility] [address] [place] [phone] Valentina Riley, RN 06/17/2024 4:00 AM CDT Home Care Visit [facility] [address] [place] [phone] Jax Edouardroxanna Griffith 06/17/2024 5:00 AM CDT Home Care Visit [facility] [address] [place] [address], [place] [phone] Annalisa Anselmocurt, OT [address] [place] [address] 06/18/2024 3:00 AM CDT Home Care Visit [facility] [address] [place] [phone] Nicolas Sanz, PT [address] [place] [address] 06/18/2024 1:00 PM CDT Appointment [facility] [address] [place] [phone] Valentina Riley, RN Health Maintenance Due Date [...] Procedure Name Priority Date/Time Associated Diagnosis Comments BASIC METABOLIC PANEL Routine 06/01/2024 9:00 AM CDT Acute systolic heart failure (HC) PRO-BNP Routine 06/01/2024 9:00 AM CDT Acute systolic heart failure (HC) PROTIME-INR Routine 04/27/2024 10:26 AM FOREST PATHOLOGY ASSOCIATE PROFESSOR Ischemic cardiomyopathy PRO-BNP Routine 04/27/2024 10:26 AM FOREST PATHOLOGY ASSOCIATE PROFESSOR Acute systolic heart failure (HC) BASIC METABOLIC PANEL Routine 04/27/2024 10:26 AM FOREST PATHOLOGY ASSOCIATE PROFESSOR Acute systolic heart failure (HC) PROTIME-INR Routine 04/23/2024 1:40 PM FOREST PATHOLOGY ASSOCIATE PROFESSOR Atrial fibrillation with rapid ventricular response (HC) BASIC METABOLIC PANEL Early AM 04/21/2024 6:15 AM FOREST PATHOLOGY ASSOCIATE PROFESSOR HEPATIC FUNCTION PANEL Early AM 6:15 AM FOREST PATHOLOGY ASSOCIATE PROFESSOR PROTIME-INR Early AM 04/21/2024 6:15 AM FOREST PATHOLOGY ASSOCIATE PROFESSOR SCAN-CARDIAC STRIP 04/20/2024 11:03 PM FOREST PATHOLOGY ASSOCIATE PROFESSOR SCAN-CARDIAC STRIP 04/20/2024 7:32 PM FOREST PATHOLOGY ASSOCIATE PROFESSOR CBC W PLT NO DIFF Early AM 04/20/2024 7:04 AM FOREST PATHOLOGY ASSOCIATE PROFESSOR MAGNESIUM Early AM 04/20/2024 7:04 AM FOREST PATHOLOGY ASSOCIATE PROFESSOR BASIC METABOLIC PANEL Early AM 04/20/2024 7:04 AM FOREST PATHOLOGY ASSOCIATE PROFESSOR HEPATIC FUNCTION PANEL Early AM 7:04 AM FOREST PATHOLOGY ASSOCIATE PROFESSOR PROTIME-INR Early AM 04/20/2024 7:04 AM FOREST PATHOLOGY ASSOCIATE PROFESSOR O2 SATURATION,MEASURED Early AM 6:22 AM FOREST PATHOLOGY ASSOCIATE PROFESSOR SCAN-CARDIAC STRIP 04/19/2024 7:23 PM FOREST PATHOLOGY ASSOCIATE PROFESSOR SCAN-CARDIAC STRIP 04/19/2024 1:45 PM FOREST PATHOLOGY ASSOCIATE PROFESSOR MAGNESIUM Early AM 04/19/2024 6:57 AM FOREST PATHOLOGY ASSOCIATE PROFESSOR BASIC METABOLIC PANEL Early AM 04/19/2024 6:57 AM FOREST PATHOLOGY ASSOCIATE PROFESSOR HEMOGLOBIN Early AM 04/19/2024 6:57 AM FOREST PATHOLOGY ASSOCIATE PROFESSOR HEPATIC FUNCTION PANEL Early AM 5 6:57 AM FOREST PATHOLOGY ASSOCIATE PROFESSOR PROTIME-INR Early AM 04/19/2024 6:57 AM FOREST PATHOLOGY ASSOCIATE PROFESSOR O2 SATURATION,MEASURED Early AM 5 6:11 AM FOREST PATHOLOGY ASSOCIATE PROFESSOR SCAN-CARDIAC STRIP 04/18/2024 10:04 PM FOREST PATHOLOGY ASSOCIATE PROFESSOR SCAN-CARDIAC STRIP 04/18/2024 5:43 PM FOREST PATHOLOGY ASSOCIATE PROFESSOR MAGNESIUM Timed 04/18/2024 4:33 PM FOREST PATHOLOGY ASSOCIATE PROFESSOR POTASSIUM Timed 04/18/2024 12:45 PM FOREST PATHOLOGY ASSOCIATE PROFESSOR O2 SATURATION,MEASURED Early AM 5 8:11 AM FOREST PATHOLOGY ASSOCIATE PROFESSOR SCAN-CARDIAC STRIP 04/18/2024 7:46 AM FOREST PATHOLOGY ASSOCIATE PROFESSOR MAGNESIUM Early AM 04/18/2024 7:07 AM FOREST PATHOLOGY ASSOCIATE PROFESSOR BASIC METABOLIC PANEL Early AM 04/18/2024 7:07 AM FOREST PATHOLOGY ASSOCIATE PROFESSOR HEPATIC FUNCTION PANEL Early AM 7:07 AM FOREST PATHOLOGY ASSOCIATE PROFESSOR PROTIME-INR Early AM 04/18/2024 7:07 AM FOREST PATHOLOGY ASSOCIATE PROFESSOR SCAN-CARDIAC STRIP 04/17/2024 11:49 PM FOREST PATHOLOGY ASSOCIATE PROFESSOR SCAN-CARDIAC STRIP 04/17/2024 9:12 PM FOREST PATHOLOGY ASSOCIATE PROFESSOR SCAN-CARDIAC STRIP 04/17/2024 7:41 AM FOREST PATHOLOGY ASSOCIATE PROFESSOR MAGNESIUM RUSH 04/17/2024 7:26 AM FOREST PATHOLOGY ASSOCIATE PROFESSOR BASIC METABOLIC PANEL Early AM 04/17/2024 7:26 AM FOREST PATHOLOGY ASSOCIATE PROFESSOR HEPATIC FUNCTION PANEL Early AM 7:26 AM FOREST PATHOLOGY ASSOCIATE PROFESSOR PROTIME-INR Early AM 04/17/2024 7:26 AM FOREST PATHOLOGY ASSOCIATE PROFESSOR O2 SATURATION,MEASURED Early AM 6:35 AM FOREST PATHOLOGY ASSOCIATE PROFESSOR SCAN-CARDIAC STRIP 04/16/2024 11:25 PM FOREST PATHOLOGY ASSOCIATE PROFESSOR POTASSIUM Timed 04/16/2024 5:20 PM FOREST PATHOLOGY ASSOCIATE PROFESSOR O2 SATURATION,MEASURED Timed 3:06 PM FOREST PATHOLOGY ASSOCIATE PROFESSOR ALK PHOSPHATASE Today 04/16/2024 10:19 AM FOREST PATHOLOGY ASSOCIATE PROFESSOR BILIRUBIN DIRECT Today 04/16/2024 10:19 AM FOREST PATHOLOGY ASSOCIATE PROFESSOR ALT (SGPT) Today 04/16/2024 10:19 AM FOREST PATHOLOGY ASSOCIATE PROFESSOR AST (SGOT) Today 04/16/2024 10:19 AM FOREST PATHOLOGY ASSOCIATE PROFESSOR POTASSIUM Early AM 04/16/2024 10:19 AM FOREST PATHOLOGY ASSOCIATE PROFESSOR SCAN-CARDIAC STRIP 04/16/2024 8:23 AM FOREST PATHOLOGY ASSOCIATE PROFESSOR HEMOGLOBIN Early AM 04/16/2024 8:09 AM FOREST PATHOLOGY ASSOCIATE PROFESSOR HEPATIC FUNCTION PANEL Early AM 8:09 AM FOREST PATHOLOGY ASSOCIATE PROFESSOR CREATININE Early AM 04/16/2024 8:09 AM FOREST PATHOLOGY ASSOCIATE PROFESSOR SODIUM Early AM 04/16/2024 8:09 AM FOREST PATHOLOGY ASSOCIATE PROFESSOR MAGNESIUM Early AM 04/16/2024 8:09 AM FOREST PATHOLOGY ASSOCIATE PROFESSOR O2 SATURATION,MEASURED Early AM 6:31 AM FOREST PATHOLOGY ASSOCIATE PROFESSOR SCAN-CARDIAC STRIP 04/16/2024 1:03 AM FOREST PATHOLOGY ASSOCIATE PROFESSOR SCAN-CARDIAC STRIP 04/15/2024 8:37 PM FOREST PATHOLOGY ASSOCIATE PROFESSOR O2 SATURATION,MEASURED Today 6:58 PM FOREST PATHOLOGY ASSOCIATE PROFESSOR POTASSIUM Timed 04/15/2024 5:26 PM FOREST PATHOLOGY ASSOCIATE PROFESSOR EKG 12 LEAD RUSH 04/15/2024 12:31 PM FOREST PATHOLOGY ASSOCIATE PROFESSOR PROTIME-INR Early AM 04/15/2024 11:55 AM FOREST PATHOLOGY ASSOCIATE PROFESSOR POTASSIUM Timed 04/15/2024 11:55 AM FOREST PATHOLOGY ASSOCIATE PROFESSOR O2 SATURATION,MEASURED RUSH 8:07 AM FOREST PATHOLOGY ASSOCIATE PROFESSOR GLUCOSE METER Timed 04/15/2024 7:49 AM FOREST PATHOLOGY ASSOCIATE PROFESSOR SCAN-CARDIAC STRIP 04/15/2024 7:26 AM FOREST PATHOLOGY ASSOCIATE PROFESSOR HEMOGLOBIN Early AM 04/15/2024 6:38 AM FOREST PATHOLOGY ASSOCIATE PROFESSOR BASIC METABOLIC PANEL Early AM 04/15/2024 6:38 AM FOREST PATHOLOGY ASSOCIATE PROFESSOR MAGNESIUM Early AM 04/15/2024 6:38 AM FOREST PATHOLOGY ASSOCIATE PROFESSOR HEPATIC FUNCTION PANEL Early AM 6:38 AM FOREST PATHOLOGY ASSOCIATE PROFESSOR SCAN-CARDIAC STRIP 04/15/2024 3:06 AM FOREST PATHOLOGY ASSOCIATE PROFESSOR SCAN-CARDIAC STRIP 04/14/2024 9:43 PM FOREST PATHOLOGY ASSOCIATE PROFESSOR GLUCOSE METER Timed 04/14/2024 9:05 PM FOREST PATHOLOGY ASSOCIATE PROFESSOR GLUCOSE METER Timed 04/14/2024 4:15 PM FOREST PATHOLOGY ASSOCIATE PROFESSOR SCAN-CARDIAC STRIP 04/14/2024 3:27 PM FOREST PATHOLOGY ASSOCIATE PROFESSOR ICD ANALYSIS DUAL WITHOUT REPROGRAM Routine 04/14/2024 3:13 PM FOREST PATHOLOGY ASSOCIATE PROFESSOR EKG 12 LEAD RUSH 04/14/2024 1:25 PM FOREST PATHOLOGY ASSOCIATE PROFESSOR GLUCOSE METER Timed 04/14/2024 12:04 PM FOREST PATHOLOGY ASSOCIATE PROFESSOR POTASSIUM Timed 04/14/2024 11:49 AM FOREST PATHOLOGY ASSOCIATE PROFESSOR GLUCOSE METER Timed 04/14/2024 7:53 AM FOREST PATHOLOGY ASSOCIATE PROFESSOR SCAN-CARDIAC STRIP 04/14/2024 7:21 AM FOREST PATHOLOGY ASSOCIATE PROFESSOR URINALYSIS MICROSCOPIC Timed 6:29 AM FOREST PATHOLOGY ASSOCIATE PROFESSOR BASIC METABOLIC PANEL Early AM 04/14/2024 6:29 AM FOREST PATHOLOGY ASSOCIATE PROFESSOR MAGNESIUM Early AM 04/14/2024 6:29 AM FOREST PATHOLOGY ASSOCIATE PROFESSOR HEPATIC FUNCTION PANEL Early AM 6:29 AM FOREST PATHOLOGY ASSOCIATE PROFESSOR O2 SATURATION,MEASURED Timed 6:29 AM FOREST PATHOLOGY ASSOCIATE PROFESSOR UA W/ SEDIMENT EXAM REFLEXED PER CRITERIA Today 04/14/2024 6:29 AM FOREST PATHOLOGY ASSOCIATE PROFESSOR GLUCOSE METER Timed 04/13/2024 9:23 PM FOREST PATHOLOGY ASSOCIATE PROFESSOR SCAN-CARDIAC STRIP 04/13/2024 8:03 PM FOREST PATHOLOGY ASSOCIATE PROFESSOR PICC LINE Routine 04/13/2024 7:28 PM FOREST PATHOLOGY ASSOCIATE PROFESSOR INSERT PICC LINE Routine 04/13/2024 7:20 PM FOREST PATHOLOGY ASSOCIATE PROFESSOR GLUCOSE METER Timed 04/13/2024 5:07 PM FOREST PATHOLOGY ASSOCIATE PROFESSOR SCAN-CARDIAC STRIP 04/13/2024 3:12 PM FOREST PATHOLOGY ASSOCIATE PROFESSOR ICD ANALYSIS DUAL WITHOUT REPROGRAM Routine 04/13/2024 1:57 PM FOREST PATHOLOGY ASSOCIATE PROFESSOR EKG 12 LEAD Today 04/13/2024 8:25 AM FOREST PATHOLOGY ASSOCIATE PROFESSOR GLUCOSE METER Timed 04/13/2024 7:41 AM FOREST PATHOLOGY ASSOCIATE PROFESSOR SCAN-CARDIAC STRIP 04/13/2024 7:35 AM FOREST PATHOLOGY ASSOCIATE PROFESSOR HEPATIC FUNCTION PANEL Early AM 6:43 AM FOREST PATHOLOGY ASSOCIATE PROFESSOR HEMOGLOBIN Early AM 04/13/2024 6:43 AM FOREST PATHOLOGY ASSOCIATE PROFESSOR BASIC METABOLIC PANEL Early AM 04/13/2024 6:43 AM FOREST PATHOLOGY ASSOCIATE PROFESSOR GLUCOSE METER Timed 04/12/2024 9:16 PM FOREST PATHOLOGY ASSOCIATE PROFESSOR GLUCOSE METER Timed 04/12/2024 6:39 PM FOREST PATHOLOGY ASSOCIATE PROFESSOR COMPREHENSIVE BLOOD GAS MIXE D VENOUS Timed 04/12/2024 4:48 PM FOREST PATHOLOGY ASSOCIATE PROFESSOR CVL OTHER PROCEDURE Routine 04/12/2024 4:09 PM FOREST PATHOLOGY ASSOCIATE PROFESSOR Cardiovascular symptoms SCAN-CARDIAC STRIP 04/12/2024 3:27 PM FOREST PATHOLOGY ASSOCIATE PROFESSOR US RENAL AND BLADDER COMPLETE Routine 2:51 PM FOREST PATHOLOGY ASSOCIATE PROFESSOR GLUCOSE METER Timed 04/12/2024 11:55 AM FOREST PATHOLOGY ASSOCIATE PROFESSOR ECHO NOEL WO CONTRAST W COLOR W LTD DOPPLER Routine 04/12/2024 10:52 AM FOREST PATHOLOGY ASSOCIATE PROFESSOR EKG 12 LEAD Post Op 04/12/2024 10:49 AM FOREST PATHOLOGY ASSOCIATE PROFESSOR EP OTHER PROCEDURE Routine 04/12/2024 10:48 AM FOREST PATHOLOGY ASSOCIATE PROFESSOR GLUCOSE METER Timed 04/12/2024 7:30 AM FOREST PATHOLOGY ASSOCIATE PROFESSOR HEPATIC FUNCTION PANEL RUSH 6:31 AM FOREST PATHOLOGY ASSOCIATE PROFESSOR BASIC METABOLIC PANEL Early AM 04/12/2024 6:31 AM FOREST PATHOLOGY ASSOCIATE PROFESSOR MAGNESIUM Early AM 04/12/2024 6:31 AM FOREST PATHOLOGY ASSOCIATE PROFESSOR SCAN-CARDIAC STRIP 04/12/2024 3:46 AM FOREST PATHOLOGY ASSOCIATE PROFESSOR SCAN-OPERATIVE/PROCEDURE REPORT 04/12/2024 12:00 AM FOREST PATHOLOGY ASSOCIATE PROFESSOR GLUCOSE METER Timed 04/11/2024 9:47 PM FOREST PATHOLOGY ASSOCIATE PROFESSOR SCAN-CARDIAC STRIP 04/11/2024 8:21 PM FOREST PATHOLOGY ASSOCIATE PROFESSOR GLUCOSE METER Timed 04/11/2024 5:24 PM FOREST PATHOLOGY ASSOCIATE PROFESSOR SCAN-CARDIAC STRIP 04/11/2024 4:18 PM FOREST PATHOLOGY ASSOCIATE PROFESSOR GLUCOSE METER Timed 04/11/2024 11:31 AM FOREST PATHOLOGY ASSOCIATE PROFESSOR HEMOGLOBIN Today 04/11/2024 10:12 AM FOREST PATHOLOGY ASSOCIATE PROFESSOR MAGNESIUM RUSH 04/11/2024 10:12 AM FOREST PATHOLOGY ASSOCIATE PROFESSOR BASIC METABOLIC PANEL Early AM 04/11/2024 10:12 AM FOREST PATHOLOGY ASSOCIATE PROFESSOR SCAN-CARDIAC STRIP 04/11/2024 7:48 AM FOREST PATHOLOGY ASSOCIATE PROFESSOR GLUCOSE METER Timed 04/11/2024 7:44 AM FOREST PATHOLOGY ASSOCIATE PROFESSOR GLUCOSE METER Timed 04/10/2024 9:22 PM FOREST PATHOLOGY ASSOCIATE PROFESSOR POTASSIUM Timed 04/10/2024 6:20 PM FOREST PATHOLOGY ASSOCIATE PROFESSOR GLUCOSE METER Timed 04/10/2024 5:09 PM FOREST PATHOLOGY ASSOCIATE PROFESSOR SCAN-CARDIAC STRIP 04/10/2024 4:04 PM FOREST PATHOLOGY ASSOCIATE PROFESSOR POTASSIUM Timed 04/10/2024 1:24 PM FOREST PATHOLOGY ASSOCIATE PROFESSOR GLUCOSE METER Timed 04/10/2024 12:37 PM FOREST PATHOLOGY ASSOCIATE PROFESSOR SCAN-CARDIAC STRIP 04/10/2024 10:29 AM FOREST PATHOLOGY ASSOCIATE PROFESSOR GLUCOSE METER Timed 04/10/2024 8:26 AM FOREST PATHOLOGY ASSOCIATE PROFESSOR MAGNESIUM RUSH 04/10/2024 8:09 AM FOREST PATHOLOGY ASSOCIATE PROFESSOR BASIC METABOLIC PANEL Early AM 04/10/2024 8:09 AM FOREST PATHOLOGY ASSOCIATE PROFESSOR SCAN-CARDIAC STRIP 04/10/2024 5:01 AM FOREST PATHOLOGY ASSOCIATE PROFESSOR GLUCOSE METER Timed 04/09/2024 9:07 PM FOREST PATHOLOGY ASSOCIATE PROFESSOR POTASSIUM Timed 04/09/2024 7:56 PM FOREST PATHOLOGY ASSOCIATE PROFESSOR SCAN-CARDIAC STRIP 04/09/2024 7:40 PM FOREST PATHOLOGY ASSOCIATE PROFESSOR GLUCOSE METER Timed 04/09/2024 5:26 PM FOREST PATHOLOGY ASSOCIATE PROFESSOR SCAN-CARDIAC STRIP 04/09/2024 3:40 PM FOREST PATHOLOGY ASSOCIATE PROFESSOR GLUCOSE METER Timed 04/09/2024 8:14 AM FOREST PATHOLOGY ASSOCIATE PROFESSOR BASIC METABOLIC PANEL Early AM 04/09/2024 8:10 AM FOREST PATHOLOGY ASSOCIATE PROFESSOR GLUCOSE METER Timed 04/08/2024 9:15 PM FOREST PATHOLOGY ASSOCIATE PROFESSOR GLUCOSE METER Timed 04/08/2024 4:52 PM FOREST PATHOLOGY ASSOCIATE PROFESSOR POTASSIUM Timed 04/08/2024 2:45 PM FOREST PATHOLOGY ASSOCIATE PROFESSOR GLUCOSE METER Timed 04/08/2024 1:00 PM FOREST PATHOLOGY ASSOCIATE PROFESSOR PATH TISSUE EXAM Today 04/08/2024 12:39 PM FOREST PATHOLOGY ASSOCIATE PROFESSOR ESOPHAGOGASTRODUODENOSCOPY W ITH BIOPSY 04/08/2024 12:13 PM FOREST PATHOLOGY ASSOCIATE PROFESSOR melena GLUCOSE METER Timed 04/08/2024 11:09 AM FOREST PATHOLOGY ASSOCIATE PROFESSOR ENDOSCOPY 04/08/2024 9:49 AM FOREST PATHOLOGY ASSOCIATE PROFESSOR GLUCOSE METER Timed 04/08/2024 8:00 AM FOREST PATHOLOGY ASSOCIATE PROFESSOR EXTRA TUBE BLUE Today 04/08/2024 6:45 AM FOREST PATHOLOGY ASSOCIATE PROFESSOR EXTRA TUBE LAVENDER Today 04/08/2024 6:45 AM FOREST PATHOLOGY ASSOCIATE PROFESSOR PRO-BNP Early AM 04/08/2024 6:45 AM FOREST PATHOLOGY ASSOCIATE PROFESSOR BASIC METABOLIC PANEL Early AM 04/08/2024 6:45 AM FOREST PATHOLOGY ASSOCIATE PROFESSOR SCAN-CARDIAC STRIP 04/07/2024 11:52 PM FOREST PATHOLOGY ASSOCIATE PROFESSOR GLUCOSE METER Timed 04/07/2024 10:19 PM FOREST PATHOLOGY ASSOCIATE PROFESSOR GLUCOSE METER Timed 04/07/2024 7:15 PM FOREST PATHOLOGY ASSOCIATE PROFESSOR HEMOGLOBIN Timed 04/07/2024 6:10 PM FOREST PATHOLOGY ASSOCIATE PROFESSOR DIGOXIN Timed 04/07/2024 1:50 PM FOREST PATHOLOGY ASSOCIATE PROFESSOR HEMOGLOBIN Timed 04/07/2024 1:50 PM FOREST PATHOLOGY ASSOCIATE PROFESSOR GLUCOSE METER Timed 04/07/2024 12:33 PM FOREST PATHOLOGY ASSOCIATE PROFESSOR EKG 12 LEAD Routine 04/07/2024 10:01 AM FOREST PATHOLOGY ASSOCIATE PROFESSOR URINALYSIS MICROSCOPIC Timed 9:48 AM FOREST PATHOLOGY ASSOCIATE PROFESSOR UA W/ SEDIMENT EXAM REFLEXED PER CRITERIA Today 04/07/2024 9:48 AM FOREST PATHOLOGY ASSOCIATE PROFESSOR COVID/FLU/RSV PANEL Today 04/07/2024 9:48 AM FOREST PATHOLOGY ASSOCIATE PROFESSOR ICD ANALYSIS DUAL WITHOUT REPROGRAM Routine 04/07/2024 9:05 AM FOREST PATHOLOGY ASSOCIATE PROFESSOR ECHO TTE LIMITED W CONTRAST W COLOR W DOPPLER Routine 04/07/2024 8:53 AM FOREST PATHOLOGY ASSOCIATE PROFESSOR GLUCOSE METER Timed 04/07/2024 7:43 AM FOREST PATHOLOGY ASSOCIATE PROFESSOR EXTRA TUBE BLUE Today 04/07/2024 6:23 AM FOREST PATHOLOGY ASSOCIATE PROFESSOR LACTATE VENOUS Timed 04/07/2024 6:20 AM FOREST PATHOLOGY ASSOCIATE PROFESSOR HEMOGLOBIN Timed 04/07/2024 6:20 AM FOREST PATHOLOGY ASSOCIATE PROFESSOR MAGNESIUM Early AM 04/07/2024 6:20 AM FOREST PATHOLOGY ASSOCIATE PROFESSOR SODIUM Early AM 04/07/2024 6:20 AM FOREST PATHOLOGY ASSOCIATE PROFESSOR POTASSIUM Early AM 04/07/2024 6:20 AM FOREST PATHOLOGY ASSOCIATE PROFESSOR CREATININE Early AM 04/07/2024 6:20 AM FOREST PATHOLOGY ASSOCIATE PROFESSOR SCAN-CARDIAC STRIP 04/07/2024 5:29 AM FOREST PATHOLOGY ASSOCIATE PROFESSOR SCAN-CARDIAC STRIP 04/07/2024 3:14 AM FOREST PATHOLOGY ASSOCIATE PROFESSOR LACTATE VENOUS Timed 04/07/2024 2:58 AM FOREST PATHOLOGY ASSOCIATE PROFESSOR GLUCOSE METER Timed 04/07/2024 1:49 AM FOREST PATHOLOGY ASSOCIATE PROFESSOR TYPE & SCREEN Today 04/07/2024 12:39 AM FOREST PATHOLOGY ASSOCIATE PROFESSOR FERRITIN RUSH 04/07/2024 12:39 AM FOREST PATHOLOGY ASSOCIATE PROFESSOR IRON PLUS IRON BINDING CAP RUSH 04/07 12:39 AM FOREST PATHOLOGY ASSOCIATE PROFESSOR RETICULOCYTES RUSH 04/07/2024 12:39 AM FOREST PATHOLOGY ASSOCIATE PROFESSOR LACTATE VENOUS Today 04/07/2024 12:39 AM FOREST PATHOLOGY ASSOCIATE PROFESSOR COMP METABOLIC PANEL STAT 04/07/2024 12:39 AM FOREST PATHOLOGY ASSOCIATE PROFESSOR CBC W PLT NO DIFF STAT 04/07/2024 12:39 AM FOREST PATHOLOGY ASSOCIATE PROFESSOR XR CHEST 1 VIEW PORTABLE STAT 02/04/2 025 8:19 PM FOREST PATHOLOGY ASSOCIATE PROFESSOR TROPONIN I STAT 04/06/2024 7:53 PM FOREST PATHOLOGY ASSOCIATE PROFESSOR BASIC METABOLIC PANEL STAT 04/06/2024 7:53 PM FOREST PATHOLOGY ASSOCIATE PROFESSOR EXTRA TUBE LAVENDER Today 04/06/2024 3:55 PM FOREST PATHOLOGY ASSOCIATE PROFESSOR HEPATIC FUNCTION PANEL STAT 3:55 PM FOREST PATHOLOGY ASSOCIATE PROFESSOR BEDSIDE US STUDY ARCHIVE Routine 025 3:07 PM FOREST PATHOLOGY ASSOCIATE PROFESSOR HEPARIN LEVEL STAT 04/06/2024 2:45 PM FOREST PATHOLOGY ASSOCIATE PROFESSOR APTT STAT 04/06/2024 2:45 PM FOREST PATHOLOGY ASSOCIATE PROFESSOR PROTIME-INR STAT 04/06/2024 2:45 PM FOREST PATHOLOGY ASSOCIATE PROFESSOR EXTRA TUBE GOLD/SST Today 04/06/2024 2:45 PM FOREST PATHOLOGY ASSOCIATE PROFESSOR EXTRA TUBE BLUE Today 04/06/2024 2:45 PM FOREST PATHOLOGY ASSOCIATE PROFESSOR SLIDE REVIEW STAT 04/06/2024 2:45 PM FOREST PATHOLOGY ASSOCIATE PROFESSOR BRAIN NATRIURETIC PEPTIDE STAT 2024 2:45 PM FOREST PATHOLOGY ASSOCIATE PROFESSOR CBC WITH AUTO DIFFERENTIAL STAT 04/06 2:45 PM FOREST PATHOLOGY ASSOCIATE PROFESSOR TROPONIN I STAT 04/06/2024 2:45 PM FOREST PATHOLOGY ASSOCIATE PROFESSOR TSH WITH REFLEX STAT 04/06/2024 2:45 PM FOREST PATHOLOGY ASSOCIATE PROFESSOR MAGNESIUM STAT 04/06/2024 2:45 PM FOREST PATHOLOGY ASSOCIATE PROFESSOR BASIC METABOLIC PANEL STAT 04/06/2024 2:45 PM FOREST PATHOLOGY ASSOCIATE PROFESSOR CBC WITH AUTO DIFFERENTIAL STAT 04/06 2:45 PM FOREST PATHOLOGY ASSOCIATE PROFESSOR EKG 12 LEAD STAT 04/06/2024 2:35 PM FOREST PATHOLOGY ASSOCIATE PROFESSOR SCAN-CARDIAC STRIP 04/06/2024 12:00 AM FOREST PATHOLOGY ASSOCIATE PROFESSOR SCAN-CARDIAC STRIP 04/06/2024 12:00 AM FOREST PATHOLOGY ASSOCIATE PROFESSOR SCAN-CARDIAC STRIP 03/22/2024 12:00 AM FOREST PATHOLOGY ASSOCIATE PROFESSOR SCAN-CARDIAC STRIP 03/15/2024 12:00 AM FOREST PATHOLOGY ASSOCIATE PROFESSOR SCAN-CARDIAC STRIP 03/08/2024 12:00 AM FOREST PATHOLOGY ASSOCIATE PROFESSOR CT ABDOMEN PELVIS WO STAT 01/16/2024 4:53 AM FOREST PATHOLOGY ASSOCIATE PROFESSOR LIPID PANEL W REFLEX MEASURE D LDL Routine 11/20/2023 1:57 PM CDT Mixed hyperlipidemia CT CHEST SCREENING LOW DOSE WO CONTRAST Routine 08/07/2023 10:24 AM CDT Stopped smoking with greater than 40 pack year history ANTI HCV Routine 06/11/2022 2:16 PM CDT Need for hepatitis C screening test HM COLONOSCOPY Routine 08/14/2011 from Last 3 Months or Most Recently Relevant to Health Maintenance Results * (ABNORMAL) PRO-BNP (06/01/2024 9:00 AM CDT) Only the most recent of3 resultswithin the time period is included. PRO-BNP 16,479(H) <125 pg/mL 06/01/2024 10:17 AM CDT [facility] Blood BLOOD SPECIMEN / Unknown Non-Lab Venipuncture / Unknown 06/01/2024 9:00 AM CDT 06/01/2024 9:48 AM CDT [facility] - 06/01/2024 10:17 AM CDT The following cut-points have been suggested for [...] 72% for acute congestive heart failure. us Lauro Kendall MD SEND OUTS Final Res ult [facility] [address] [place] [address] * (ABNORMAL) BASIC METABOLIC PANEL (06/01/2024 9:00 AM CDT) Only the most recent of17 resultswithin the time period is included. SODIUM 138 136 - 145 mmol/L 06/01/2024 10:17 AM [facility] POTASSIUM 3.5 3.5 - 5.1 mmol/L 06/01/2024 10:17 AM [facility] CHLORIDE 98 98 - 107 mmol/L 06/01/2024 10:17 AM [facility] CO2,TOTAL 27 22 - 29 mmol/L 06/01/2024 10:17 AM [facility] ANION GAP 13 5 - 18 06/01/2024 10:17 AM [facility] GLUCOSE 116(H) 70 - 99 mg/dL 06/01/2024 10:17 AM [facility] CALCIUM 8.9 8.8 - 10.4 mg/dL 06/01/2024 10:17 AM [facility] Comment: Reference ranges for this test were updated on 01/06/2024 to reflect our healthy population more accurately. Reference range changes are not retroactively applied to results, but previous results using the same methodology can be interpreted in the context of the new reference range. BUN 38(H) 8 - 23 mg/dL 06/01/2024 10:17 AM [facility] CREATININE 2.42(H) 0.70 - 1.20 mg/dL 06/01/2024 10:17 AM [facility] BUN/CREAT RATIO 16 10 - 20 10:17 AM [facility] eGFR 28(L) >90 mL/min/1. 73m2 06/01/2024 10:17 AM [facility] Comment:As of 2021, eG FR is calculated by the CKD-EPI creatinine equation without race adjustment. eGFR can be influenced by muscle mass, exercise, and diet. The reported eGFR is an estimation only and is only applicable if the renal function is stable. Blood BLOOD SPECIMEN / Unknown Non-Lab Venipuncture / Unknown 06/01/2024 9:00 AM CDT 06/01/2024 9:48 AM T Lauro Kendall MD CHEMISTRY Final Res ult [facility] [address] [place] [address] * (ABNORMAL) PROTIME-INR (04/27/2024 10:26 AM FOREST PATHOLOGY ASSOCIATE PROFESSOR) Only the most recent of9 resultswithin the time period is included. INR 2.4(H) 0.8 - 1.1 04/27/2024 11:18 AM FOREST PATHOLOGY ASSOCIATE PROFESSOR [facility] Blood BLOOD SPECIMEN / Unknown Venipuncture / Unknown 04/27/2024 10:26 AM FOREST PATHOLOGY ASSOCIATE PROFESSOR 04/27/2024 10:38 AM FOREST PATHOLOGY ASSOCIATE PROFESSOR Shana Lozano DO HEMATOLOGY Final Result [facility] [address] [place] [address], [place] [phone] * (ABNORMAL) Hepatic function panel AM (04/21/2024 6:15 AM FOREST PATHOLOGY ASSOCIATE PROFESSOR) Only the most recent of11 resultswithin the time period is included. ALBUMIN 3.5(L) 4.0 - 4.9 g/dL 04/21/2024 6:57 AM FOREST PATHOLOGY ASSOCIATE PROFESSOR [facility] PROTEIN,TOTAL 5.9(L) 6.0 - 8.0 g/dL 04/21/2024 6:57 AM FOREST PATHOLOGY ASSOCIATE PROFESSOR [facility] BILIRUBIN,TOTAL 1.0 0.0 - 1.2 mg/dL 04/21/2024 6:57 AM FOREST PATHOLOGY ASSOCIATE PROFESSOR [facility] BILIRUBIN,DIRECT 0.5(H) 0.0 - 0.2 mg/dL 04/21/2024 6:57 AM FOREST PATHOLOGY ASSOCIATE PROFESSOR [facility] BILIRUBIN,INDIRE CT 0.5 0.2 - 0.8 mg/dL 04/21/2024 6:57 AM FOREST PATHOLOGY ASSOCIATE PROFESSOR [facility] ALK PHOSPHATASE 158(H) 40 - 129 IU/L 04/21/2024 6:57 AM FOREST PATH[employer]Y ASSOCIATE PROFESSOR [facility] ALT (SGPT) 48 10 - 50 IU/L 04/21/2024 6:57 AM [facility] AST (SGOT) 18 10 - 50 IU/L 04/21/2024 6:57 AM [facility] Blood BLOOD SPECIMEN / Unknown Venipuncture / Unknown 04/21/2024 6:15 AM FOREST PATHOLOGY ASSOCIATE PROFESSOR 04/21/2024 6:29 AM FOREST PATHOLOGY ASSOCIATE PROFESSOR us Lauro Kendall MD CHEMISTRY Final Res ult [facility] [address] [place] [address], * SCAN-CARDIAC STRIP (04/20/2024 11:03 PM FOREST PATHOLOGY ASSOCIATE PROFESSOR) us Scanner OTHER Final Result * SCAN-CARDIAC STRIP (04/20/2024 7:32 PM FOREST PATHOLOGY ASSOCIATE PROFESSOR) us Scanner OTHER Final Result * (ABNORMAL) CBC (04/20/2024 7:04 AM [facility]) Only the most recent of2 resultswithin the time period is included. WHITE BLOOD COUNT 8.1 4.5 - 11.0 thou/cu mm 04/20/2024 7:31 AM [facility] RED BLOOD COUNT 3.32(L) 4.30 - 5.90 mil/cu mm 04/20/2024 7:31 AM [facility] HEMOGLOBIN 9.6(L) 13.5 - 17.5 g/dL 04/20/2024 7:31 AM [facility] HEMATOCRIT 30.3(L) 37.0 - 53.0 % 04/20/2024 7:31 AM [facility] MCV 91 80 - 100 fL 04/20/2024 7:31 AM [facility] MCH 28.9 26.0 - 34.0 pg 04/20/2024 7:31 AM [facility] MCHC 31.7(L) 32.0 - 36.0 g/dL 04/20/2024 7:31 AM [facility] RDW 18.9(H) 11.5 - 15.5 % 04/20/2024 7:31 AM [facility] [facility] PLATELET COUNT 229 140 - 440 thou/cu mm 04/20/2024 7:31 AM [facility] MPV 10.9 6.5 - 11.0 fL 04/20/2024 7:31 AM [facility] NRBC 0.2 % 04/20/2024 7:31 AM [facility] ABS NRBC 0.0 thou /cu mm 04/20/2024 7:31 AM [facility] Blood BLOOD SPECIMEN / Unknown Venipuncture / Unknown 04/20/2024 7:04 AM FOREST PATHOLOGY ASSOCIATE PROFESSOR 04/20/2024 7:20 AM FOREST PATHOLOGY ASSOCIATE PROFESSOR Madonna Hedrick SHOE LACER HEMATOLOGY Final Res ult Performing Organization Address City/[facility]/ZIP Co de Phone Number [facility] [address] [place] [id number], [place] * (ABNORMAL) Magnesium AM (04/20/2024 7:04 AM FOREST PATHOLOGY ASSOCIATE PROFESSOR) Only the most recent of13 resultswithin the time period is included. MAGNESIUM 2.5(H) 1.6 - 2.4 mg/dL 04/20/2024 7:50 AM FOREST PATHOLOGY ASSOCIATE PROFESSOR [facility] LAB[facility] Blood BLOOD SPECIMEN / Unknown Venipuncture / Unknown 04/20/2024 7:04 AM FOREST PATHOLOGY ASSOCIATE PROFESSOR 04/20/2024 7:20 AM FOREST PATHOLOGY ASSOCIATE PROFESSOR Madonna Hedrick SHOE LACER CHEMISTRY Final Res ult Performing Organization Address [facility] Co de Phone Number [facility] [address] [place] [id number], [place] * (ABNORMAL) O2 SATURATION,MEASURED (04/20/2024 6:22 AM FOREST PATHOLOGY ASSOCIATE PROFESSOR) Only the most recent of9 resultswithin the time period is included. O2 SATURATION,MANISH SURED 55 % 04/20/2024 6:38 AM FOREST PATHOLOGY ASSOCIATE PROFESSOR [facility] TRA LABORATORY HEMOGLOBIN,BLO OD GAS 10.0(L) 13.5 - 17.5 g/dL 04/20/2024 6:38 AM FOREST PATHOLOGY ASSOCIATE PROFESSOR [facility] TRA LABORATORY SOURCE, O2M Venous 04/20/2024 6:38 AM FOREST PATHOLOGY ASSOCIATE PROFESSOR [facility] LABORATORY Blood BLOOD SPECIMEN / Unknown Non-Lab Venipuncture / Unknown 04/20/2024 6:22 AM FOREST PATHOLOGY ASSOCIATE PROFESSOR 04/20/2024 6:34 AM FOREST PATHOLOGY ASSOCIATE PROFESSOR Narrative [facility] - 04/20/2024 6:38 AM FOREST PATHOLOGY ASSOCIATE PROFESSOR Reference Range for: Arterial Source (94-98) Non-Arterial Source (70-75) Marylou Currie SHOE LACER CHEMISTRY Final R esult Performing Organization Address City/[facility]/ZIP Co de Phone Number [facility] [address] [address], * SCAN-CARDIAC STRIP (04/19/2024 7:23 PM FOREST PATHOLOGY ASSOCIATE PROFESSOR) us Scanner OTHER Final Result * SCAN-CARDIAC STRIP (04/19/2024 1:45 PM FOREST PATHOLOGY ASSOCIATE PROFESSOR) us Scanner OTHER Final Result * (ABNORMAL) Hemoglobin AM (04/19/2024 6:57 AM FOREST PATHOLOGY ASSOCIATE PROFESSOR) Only the most recent of8 resultswithin the time period is included. Pathologist [facility] HEMOGLOBIN 10.3(L) 13.5 - 17.5 g/dL 04/19/2024 8:14 AM FOREST PATHOLOGY ASSOCIATE PROFESSOR [facility] LABOR[facility] MCV 93 80 - 100 fL 04/19/2024 8:14 AM FOREST PATHOLOGY ASSOCIATE PROFESSOR [facility] LAB[facility] Blood BLOOD SPECIMEN / Unknown Non-Lab Venipuncture / Unknown 04/19/2024 6:57 AM FOREST PATHOLOGY ASSOCIATE PROFESSOR 04/19/2024 8:09 AM FOREST PATHOLOGY ASSOCIATE PROFESSOR us Deborah Lipscomb MD HEMATOLOGY Final R esult Performing Organization Address [facility] Co de Phone Number [facility] [address] [address], * SCAN-CARDIAC STRIP (04/18/2024 10:04 PM FOREST PATHOLOGY ASSOCIATE PROFESSOR) us Scanner OTHER Final Result * SCAN-CARDIAC STRIP (04/18/2024 5:43 PM FOREST PATHOLOGY ASSOCIATE PROFESSOR) us Scanner OTHER Final Result * POTASSIUM (04/18/2024 12:45 PM FOREST PATHOLOGY ASSOCIATE PROFESSOR) Only the most recent of11 resultswithin the time period is included. Pathologist [facility] POTASSIUM 3.9 3.5 - 5.1 mmol/L 04/18/2024 1:14 PM FOREST PATHOLOGY ASSOCIATE PROFESSOR [facility] LABORATORY Blood BLOOD SPECIMEN / Unknown Venipuncture / Unknown 04/18/2024 12:45 PM FOREST PATHOLOGY ASSOCIATE PROFESSOR 04/18/2024 12:51 PM FOREST PATHOLOGY ASSOCIATE PROFESSOR us Deborah Lipscomb MD CHEMISTRY Final R esult Performing Organization Address [facility] Co de Phone Number [facility] [address] [place] [address], [place] * SCAN-CARDIAC STRIP (04/18/2024 7:46 AM FOREST PATHOLOGY ASSOCIATE PROFESSOR) us Scanner OTHER Final Result * SCAN-CARDIAC STRIP (04/17/2024 11:49 PM FOREST PATHOLOGY ASSOCIATE PROFESSOR) us Scanner OTHER Final Result * SCAN-CARDIAC STRIP (04/17/2024 9:12 PM FOREST PATHOLOGY ASSOCIATE PROFESSOR) us Scanner OTHER Final Result * SCAN-CARDIAC STRIP (04/17/2024 7:41 AM FOREST PATHOLOGY ASSOCIATE PROFESSOR) us Scanner OTHER Final Result * SCAN-CARDIAC STRIP (04/16/2024 11:25 PM FOREST PATHOLOGY ASSOCIATE PROFESSOR) us Scanner OTHER Final Result * (ABNORMAL) ALT (SGPT) (04/16/2024 10:19 AM FOREST PATHOLOGY ASSOCIATE PROFESSOR) ALT (SGPT) 201(H) 10 - 50 IU/L 04/16/2024 11:00 AM FOREST PATHOLOGY ASSOCIATE PROFESSOR [facility] LAB[facility] Blood BLOOD SPECIMEN / Unknown Butterfly / Unknown 04/16/2024 10:19 AM FOREST PATHOLOGY ASSOCIATE PROFESSOR 04/16/2024 10:30 AM FOREST PATHOLOGY ASSOCIATE PROFESSOR us Deborah Lipscomb MD CHEMISTRY Final R esult Performing Organization Address City/[facility]/ZIP Co de Phone Number [facility] [address] [place] [address], [place] * (ABNORMAL) AST (SGOT) (04/16/2024 10:19 AM FOREST PATHOLOGY ASSOCIATE PROFESSOR) AST (SGOT) 58(H) 10 - 50 IU/L 04/16/2024 11:00 AM FOREST PATHOLOGY ASSOCIATE PROFESSOR [facility] Blood BLOOD SPECIMEN / Unknown Butterfly / Unknown 04/16/2024 10:19 AM FOREST PATHOLOGY ASSOCIATE PROFESSOR 04/16/2024 10:30 AM FOREST PATHOLOGY ASSOCIATE PROFESSOR Deborah Lipscomb MD CHEMISTRY Final R esult Performing Organization Address [facility] Co de Phone Number [facility] [address] [address], [place] * (ABNORMAL) ALK PHOSPHATASE (04/16/2024 10:19 AM FOREST PATHOLOGY ASSOCIATE PROFESSOR) ALK PHOSPHATASE 157(H) 40 - 129 IU/L 04/16/2024 11:00 AM FOREST PATHOLOGY ASSOCIATE PROFESSOR [facility] TRAL LABORATORY Blood BLOOD SPECIMEN / Unknown Butterfly / Unknown 04/16/2024 10:19 AM FOREST PATHOLOGY ASSOCIATE PROFESSOR 04/16/2024 10:30 AM FOREST PATHOLOGY ASSOCIATE PROFESSOR Deborah Lipscomb MD CHEMISTRY Final R esult Performing Organization Address [facility] Co de Phone Number [facility] [address] [place] [phone], [place] * (ABNORMAL) BILIRUBIN DIRECT (04/16/2024 10:19 AM FOREST PATHOLOGY ASSOCIATE PROFESSOR) BILIRUBIN,DIRE CT 0.6(H) 0.0 - 0.2 mg/dL 04/16/2024 11:00 AM FOREST PATHOLOGY ASSOCIATE PROFESSOR [facility] Blood BLOOD SPECIMEN / Unknown Butterfly / Unknown 04/16/2024 10:19 AM FOREST PATHOLOGY ASSOCIATE PROFESSOR 04/16/2024 10:30 AM FOREST PATHOLOGY ASSOCIATE PROFESSOR Deborah Lipscomb MD CHEMISTRY Final R esult Performing Organization Address [facility] Co de Phone Number [facility] [address] [place] [phone], [place] * SCAN-CARDIAC STRIP (04/16/2024 8:23 AM FOREST PATHOLOGY ASSOCIATE PROFESSOR) Scanner OTHER Final Result * (ABNORMAL) SODIUM (04/16/2024 8:09 AM FOREST PATHOLOGY ASSOCIATE PROFESSOR) Only the most recent of2 resultswithin the time period is included. SODIUM 134(L) 136 - 145 mmol/L 04/16/2024 9:45 AM FOREST PATHOLOGY ASSOCIATE PROFESSOR [facility] Blood BLOOD SPECIMEN / Unknown Non-Lab Venipuncture / Unknown 04/16/2024 8:09 AM FOREST PATHOLOGY ASSOCIATE PROFESSOR 04/16/2024 9:06 AM FOREST PATHOLOGY ASSOCIATE PROFESSOR Deborah Lipscomb MD CHEMISTRY Final R esult Performing Organization Address City/[facility]/ZIP Co de Phone Number [facility] [address] [place] [address], [place] * (ABNORMAL) CREATININE (04/16/2024 8:09 AM FOREST PATHOLOGY ASSOCIATE PROFESSOR) Only the most recent of2 resultswithin the time period is included. eGFR 37(L) >90 mL/min/1.7 3m2 04/16/2024 9:45 AM FOREST PATHOLOGY ASSOCIATE PROFESSOR [facility] Comment:As of 2021, eG FR is calculated by the CKD-EPI creatinine equation without race adjustment. eGFR can be influenced by muscle mass, exercise, and diet. The reported eGFR is an estimation only and is only applicable if the renal function is stable. CREATININE 1.91(H) 0.70 - 1.20 mg/dL 04/16/2024 9:45 AM FOREST PATHOLOGY ASSOCIATE PROFESSOR [facility] Blood BLOOD SPECIMEN / Unknown Non-Lab Venipuncture / Unknown 04/16/2024 8:09 AM FOREST PATHOLOGY ASSOCIATE PROFESSOR 04/16/2024 9:06 AM FOREST PATHOLOGY ASSOCIATE PROFESSOR Deborah Lipscomb MD CHEMISTRY Final R esult Performing Organization Address City/[facility]/ZIP Co de Phone Number [facility] [address] [address], [place] * SCAN-CARDIAC STRIP (04/16/2024 1:03 AM FOREST PATHOLOGY ASSOCIATE PROFESSOR) Scanner OTHER Final Result * SCAN-CARDIAC STRIP (04/15/2024 8:37 PM FOREST PATHOLOGY ASSOCIATE PROFESSOR) us Scanner OTHER Final Result * EKG 12 LEAD (04/15/2024 12:31 PM FOREST PATHOLOGY ASSOCIATE PROFESSOR) Only the most recent of6 resultswithin the [...] NOW QTc 448 ms BEYOND NOW P [place] 53 degrees BEYOND NOW R [place] -60 degrees BEYOND NOW T [place] 118 degrees BEYOND NOW 04/15/2024 12:3 1 PM FOREST PATHOLOGY ASSOCIATE PROFESSOR 04/16/2024 1:25 AM FOREST PATHOLOGY ASSOCIATE PROFESSOR us Jossie Prado NP EKG ORD Final Result Performing Organization Address [facility] Co de Phone Number BEYOND NOW [place], [place] * (ABNORMAL) GLUCOSE METER (04/15/2024 7:49 AM FOREST PATHOLOGY ASSOCIATE PROFESSOR) Only the most recent of33 resultswithin the time period is included. GLUCOSE METER 134(H) 65 - 100 mg/dL 04/15/2024 7:54 AM FOREST PATHOLOGY ASSOCIATE PROFESSOR [facility] [employer] [facility] Blood BLOOD SPECIMEN / Unknown 04/15/2024 7:49 AM FOREST PATHOLOGY ASSOCIATE PROFESSOR 04/15/2024 7:54 AM FOREST PATHOLOGY ASSOCIATE PROFESSOR us Deborah Lipscomb MD CHEMISTRY Final R esult Performing Organization Address City/[facility]/ZIP Co de Phone Number [facility] [address] [place] [address], [place] * SCAN-CARDIAC STRIP (04/15/2024 7:26 AM FOREST PATHOLOGY ASSOCIATE PROFESSOR) us Scanner OTHER Final Result * SCAN-CARDIAC STRIP (04/15/2024 3:06 AM FOREST PATHOLOGY ASSOCIATE PROFESSOR) us Scanner OTHER Final Result * SCAN-CARDIAC STRIP (04/14/2024 9:43 PM FOREST PATHOLOGY ASSOCIATE PROFESSOR) us Scanner OTHER Final Result * SCAN-CARDIAC STRIP (04/14/2024 3:27 PM FOREST PATHOLOGY ASSOCIATE PROFESSOR) us Scanner OTHER Final Result * ICD ANALYSIS DUAL WITHOUT REPROGRAM (04/14/2024 3:13 PM FOREST PATHOLOGY ASSOCIATE PROFESSOR) Narrative Vasyl Kim MD - 04/14/2024 3:13 PM FOREST PATHOLOGY ASSOCIATE PROFESSOR Marino Strickland RN 04/14/2024 3:17 PM ICD EVALUATION REPORT 04/14/2024 Summary: Normal pacemaker function. Lead trends stable. 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 No VT detections. AP 20.9%, CONSTRUCTION PROJECT ENGINEER 0.2%. Battery estimating 11.2 years remaining. Indication for ICD: Primary Prevention of Sudden Cardiac Primary MD: Sahna Lozano DO Primary Wildlife Control Agent: [facility] Implanting MD: Bert Quiros- [facility] DEVICE DATA Processing Specialist [employer]: Model Gooding XT DR [id number] Implant Date 04/09/2023 LEAD DATA Atrial Lead: Processing Specialist [employer]: Model 5076-52 cm Implant Date 04/09/23 RV Lead: Processing Specialist [employer]: Model 6935M-62 cm Implant Date [...] Tachy therapy hx: none Location of evaluation: [facility] [id number] Reason for evaluation: MD request [...] permanent changes made. Follow up: follows with [facility] device clinic Marino Strickland RN Nurse Clinician II [facility] Pacemaker/ICD [phone] us Vasyl Kim MD CARDIAC SERVICES ORD Final Result * SCAN-CARDIAC STRIP (04/14/2024 7:21 AM FOREST PATHOLOGY ASSOCIATE PROFESSOR) us Scanner OTHER Final Result * URINALYSIS MICROSCOPIC (04/14/2024 6:29 AM FOREST PATHOLOGY ASSOCIATE PROFESSOR) Only the most recent of2 resultswithin the time period is included. RBC 0-2 0-2, None Seen /HPF 04/14/2024 7:26 AM FOREST PATHOLOGY ASSOCIATE PROFESSOR [facility]AL LABORAT[facility] WBC 3-5 0-2, 3-5, None Seen /HPF 04/14/2024 7:26 AM FOREST PATHOLOGY ASSOCIATE PROFESSOR [facility] LABORAT[facility] BACTERIA None Seen None Seen, Rare, Few Bacteria/ HPF 04/14/2024 7:26 AM FOREST PATHOLOGY ASSOCIATE PROFESSOR [facility] LAB[facility] EPITHELIAL CELLS None Seen None Seen, Few Epi/HPF 04/14/2024 7:26 AM FOREST PATHOLOGY ASSOCIATE PROFESSOR [facility] HYALINE CASTS 0-2 0-2, 3-5 /LPF 04/14/2024 7:26 AM FOREST PATHOLOGY ASSOCIATE PROFESSOR [facility] LAB[facility] Urine URINE SPECIMEN / Unknown Non-Blood / Unknown 04/14/2024 6:29 AM FOREST PATHOLOGY ASSOCIATE PROFESSOR 04/14/2024 6:36 AM FOREST PATHOLOGY ASSOCIATE PROFESSOR us Santy Crowley MD URINE Final Re sult [facility] [address] [place] [address], [place] * (ABNORMAL) UA W/ SEDIMENT EXAM REFLEXED PER CRITERIA (04/14/2024 6:29 AM FOREST PATHOLOGY ASSOCIATE PROFESSOR) Only the most recent of2 resultswithin the time period is included. COLOR Yellow Yellow Color 04/14/2024 7:26 AM [facility] CLARITY Clear Clear Clarity 04/14/2024 7:26 AM [facility] SPECIFIC GRAVITY,URINE 1.015 1.010, 1.015, 1.020, 1.025 04/14/2024 7:26 AM [facility] PH,URINE 5.5 6.0, 7.0, 8.0, 5.5, 6.5, 7.5, 8.5 04/14/2024 7:26 AM FOREST PATHOLOGY ASSOCIATE PROFESSOR [facility] LAB[facility] UROBILINOGEN, QUALITATIVE Normal Normal EU/dl 04/14/2024 7:26 AM [facility] PROTEIN, URINE Negative Negative mg/dL 04/14/2024 7:26 AM [facility] GLUCOSE, URINE Negative Negative mg/dL 04/14/2024 7:26 AM [facility] KETONES,URINE Negative Negative mg/dL 04/14/2024 7:26 AM FOREST PATHOLOGY ASSOCIATE PROFESSOR [facility] TRAL LABORATORY BILIRUBIN,URI NE Negative Negative 04/14/2024 7:26 AM FOREST PATHOLOGY ASSOCIATE PROFESSOR [facility] TRAL LABOR[facility]ORY OCCULT BLOOD,URINE Negative Negative 04/14/2024 7:26 AM FOREST PATHOLOGY ASSOCIATE PROFESSOR [facility] TRAL LABORATORY NITRITE Negative Negative 04/14/2024 7:26 AM FOREST PATHOLOGY ASSOCIATE PROFESSOR [facility] TRAL LABORATORY LEUKOCYTE ESTERASE Trace(A) Negative 04/14/2024 7:26 AM FOREST PATHOLOGY ASSOCIATE PROFESSOR [facility] TRAL LABORATORY Urine URINE SPECIMEN / Unknown Non-Blood / Unknown 04/14/2024 6:29 AM FOREST PATHOLOGY ASSOCIATE PROFESSOR 04/14/2024 6:36 AM FOREST PATHOLOGY ASSOCIATE PROFESSOR us Santy Crowley MD URINE Final Re sult [facility] [address] [place] [address], [place] * SCAN-CARDIAC STRIP (04/13/2024 8:03 PM FOREST PATHOLOGY ASSOCIATE PROFESSOR) us Scanner OTHER Final Result * PICC LINE (04/13/2024 7:28 PM FOREST PATHOLOGY ASSOCIATE PROFESSOR) Narrative Eleonora Fox RN - 04/13/2024 7:28 PM FOREST PATHOLOGY ASSOCIATE PROFESSOR Eleonora Fox, RN 04/13/2024 7:33 PM PICC Line Insertion Note 04/13/2024 7:28 PM Procedure education reviewed: Placement procedure, discussed with: Patient face to face. Patient face to face confirms understanding of procedure. Mobile Home Technician used: No Reason for insertion: MD order [...] (Active) 04/13/241899 Right;Basilic;Upper Arm Vessel Diameter: 0.46 Vjoaixkp-my-Xcnk Ratio (%): Visible Catheter Length (cm): 0 [...] Dressing change due date 04/20/2024 04/13/241899 Line Processing Specialist Name: [employer] Line Type: Valved Power PICC Lot Number: [id number] Access Assistance:Modified Seldinger Technique (Micro-Introducer) WITH Dermatotomy [...] * Insert PICC line (04/13/2024 7:20 PM FOREST PATHOLOGY ASSOCIATE PROFESSOR) Narrative Eleonora Fox, RN - 04/13/2024 7:20 PM FOREST PATHOLOGY ASSOCIATE PROFESSOR Eleonora Fox, RN 04/13/2024 7:22 PM PICC [...] ult * SCAN-CARDIAC STRIP (04/13/2024 3:12 PM FOREST PATHOLOGY ASSOCIATE PROFESSOR) Scanner OTHER Final Result * ICD ANALYSIS DUAL WITHOUT REPROGRAM (04/13/2024 1:57 PM FOREST PATHOLOGY ASSOCIATE PROFESSOR) Narrative Vasyl Kim MD - 04/13/2024 1:57 PM FOREST PATHOLOGY ASSOCIATE PROFESSOR Mirela Bates, AMELIA 04/13/2024 2:23 PM ICD EVALUATION REPORT 04/13/2024 Summary: Normal pacemaker function. Lead trends stable. 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 No VT detections. AP 2.9%, CONSTRUCTION PROJECT ENGINEER 51.9%. Battery estimating 11.3 years remaining. Indication for ICD: Primary Prevention of Sudden Cardiac Primary MD: Shana Lozano DO Primary Wildlife Control Agent: [facility] Implanting MD: Bert Quiros- [facility] DEVICE DATA Processing Specialist [employer]: Model Gooding XT DR [id number] Implant Date 04/09/2023 LEAD DATA Atrial Lead: Processing Specialist [employer]: Model 5076-52 cm Implant Date 04/09/23 RV Lead: Processing Specialist [employer]: Model 6935M-62 cm Implant Date [...] Tachy therapy hx: none Location of evaluation: [facility] [id number] Reason for evaluation: MD request- [...] permanent changes made. Follow up: follows with [facility] device clinic Mirela Bates RN Nurse Clinician II I Pacemaker/ICD Clinic [phone] us Vasyl Kim MD CARDIAC SERVICES ORD Final Result * SCAN-CARDIAC STRIP (04/13/2024 7:35 AM FOREST PATHOLOGY ASSOCIATE PROFESSOR) us Scanner OTHER Final Result * (ABNORMAL) COMPREHENSIVE BLOOD GAS MIXED VENOUS (04/12/2024 4:48 PM FOREST PATHOLOGY ASSOCIATE PROFESSOR) O2 SATURATION, MEASURED, MIXED VENOUS 41(L) 70 - 75 % 04/12/2024 4:48 PM FOREST PATHOLOGY ASSOCIATE PROFESSOR [facility]- [facility] PATIENT TEMPERATURE 37.0 Degrees C 04/12/2024 4:48 PM FOREST PATHOLOGY ASSOCIATE PROFESSOR [facility] COLLECTION SITE PULMONARY ARTERY 04/12/2024 4:48 PM FOREST PATHOLOGY ASSOCIATE PROFESSOR [facility] HEMOGLOBIN,BLOO D GAS 11.4(L) 13.5 - 17.5 g/dL 04/12/2024 4:48 PM FOREST PATHOLOGY ASSOCIATE PROFESSOR [facility] Blood BLOOD SPECIMEN / Unknown 04/12/2024 4:48 PM FOREST PATHOLOGY ASSOCIATE PROFESSOR 04/12/2024 4:48 PM FOREST PATHOLOGY ASSOCIATE PROFESSOR [facility] CHEMISTRY Final Re sult [facility] [address] [place] [address], * CVL OTHER PROCEDURE (04/12/2024 4:09 PM FOREST PATHOLOGY ASSOCIATE PROFESSOR) Anatomical Region Laterality Modality Other 04/12/2024 4:09 PM FOREST PATHOLOGY ASSOCIATE PROFESSOR us Provider Referring CV IMAGING Final Result * SCAN-CARDIAC STRIP (04/12/2024 3:27 PM FOREST PATHOLOGY ASSOCIATE PROFESSOR) us Scanner OTHER Final Result * US RENAL AND BLADDER COMPLETE (04/12/2024 2:51 PM FOREST PATHOLOGY ASSOCIATE PROFESSOR) Anatomical Region Laterality Modality Abdomen, AORTA, KIDNEYS Ultrasou nd 04/12/2024 3:4 6 PM FOREST PATHOLOGY ASSOCIATE PROFESSOR Impressions 04/12/2024 3:46 PM FOREST PATHOLOGY ASSOCIATE PROFESSOR Simple appearing right lower pole renal cyst. Otherwise, no concerning findings on a renal ultrasound. Dictated by Danny Rubio MD @ 04/12/2024 3:46:12 PM (Electronically Signed) Narrative 04/12/2024 3:46 PM FOREST PATHOLOGY ASSOCIATE PROFESSOR For Patients: As a result of the [...] COLOR W LTD DOPPLER (04/12/2024 10:52 AM FOREST PATHOLOGY ASSOCIATE PROFESSOR) MITRAL VALVE MR ERO 13 mm2 EJECTION FRACTION 10 - 20% Anatomical Region Laterality Modality Ultrasound 04/12/2024 10:2 2 AM FOREST PATHOLOGY ASSOCIATE PROFESSOR Narrative 04/12/2024 1:01 PM FOREST PATHOLOGY ASSOCIATE PROFESSOR TRANSESOPHAGEAL ECHOCARDIOGRAM CASEY SOLER : 1950 73 years Study Date: 04/12/2024 10:22:59 AM Gender: M BP: 96/76 mmHg Height: 172.00 cm BSA: 1.91 m Weight: 78.00 kg Tech: LETICIA/ION Referring MD: FARA BLACKWELL Site: [facility] Reading Location: [facility] Patient Location: Inpatient. Procedure: NOEL, Limited [...] . This study was interpreted by an [facility] accredited facility. Final Procedure Note Troy Munoz MD - 04/12/2024 TRANSESOPHAGEAL ECHOCARDIOGRAM CASEY SOLER : 1950 73 years Study Date: 04/12/2024 10:22:59 AM Gender: M BP: 96/76 mmHg Height: 172.00 cm BSA: 1.91 m Weight: 78.00 kg Tech: LETICIA/ION Referring MD: FARA BLACKWELL Site: [facility] Reading Location: [facility] Patient Location: Inpatient. Procedure: NOEL, Limited [...] . This study was interpreted by an [facility] accredited facility. Final us Fara Blackwell SHOE LACER ECHO ORD Final Resu lt * EP OTHER PROCEDURE (04/12/2024 10:48 AM FOREST PATHOLOGY ASSOCIATE PROFESSOR) Anatomical Region Laterality Modality Other Narrative 04/12/2024 10:48 AM FOREST PATHOLOGY ASSOCIATE PROFESSOR Troy Munoz MD 04/12/2024 10:48 AM [facility] Procedure Note Date of Service: 04/12/2024 [...] complications. Troy Munoz MD us Emilee Hudson SHOE LACER CV IMAGING Final Re sult * SCAN-CARDIAC STRIP (04/12/2024 3:46 AM FOREST PATHOLOGY ASSOCIATE PROFESSOR) us Scanner OTHER Final Result * SCAN-OPERATIVE/PROCEDURE REPORT (04/12/2024 12:00 AM FOREST PATHOLOGY ASSOCIATE PROFESSOR) Narrative 04/12/2024 12:00 AM FOREST PATHOLOGY ASSOCIATE PROFESSOR Ordered by an unspecified provider. us Other Clinical Staff OTHER Final Resul t * SCAN-CARDIAC STRIP (04/11/2024 8:21 PM FOREST PATHOLOGY ASSOCIATE PROFESSOR) us Scanner OTHER Final Result * SCAN-CARDIAC STRIP (04/11/2024 4:18 PM FOREST PATHOLOGY ASSOCIATE PROFESSOR) us Scanner OTHER Final Result * SCAN-CARDIAC STRIP (04/11/2024 7:48 AM FOREST PATHOLOGY ASSOCIATE PROFESSOR) us Scanner OTHER Final Result * SCAN-CARDIAC STRIP (04/10/2024 4:04 PM FOREST PATHOLOGY ASSOCIATE PROFESSOR) us Scanner OTHER Final Result * SCAN-CARDIAC STRIP (04/10/2024 10:29 AM FOREST PATHOLOGY ASSOCIATE PROFESSOR) us Scanner OTHER Final Result * SCAN-CARDIAC STRIP (04/10/2024 5:01 AM FOREST PATHOLOGY ASSOCIATE PROFESSOR) us Scanner OTHER Final Result * SCAN-CARDIAC STRIP (04/09/2024 7:40 PM FOREST PATHOLOGY ASSOCIATE PROFESSOR) us Scanner OTHER Final Result * SCAN-CARDIAC STRIP (04/09/2024 3:40 PM FOREST PATHOLOGY ASSOCIATE PROFESSOR) us Scanner OTHER Final Result * PATH TISSUE EXAM (04/08/2024 12:39 PM FOREST PATHOLOGY ASSOCIATE PROFESSOR) Case Report Pathology Report Case: [id number] Authorizing Provider: Chepe rFancis MD Collected: 04/08/2024 1239 Ordering Location: [facility] Received: 04/08/2024 1244 [facility] Pathologist: Lukasz Pinto MD Specimen: Gastric Biopsy 04/09/2024 11:12 AM FOREST PATHOLOGY ASSOCIATE PROFESSOR [facility] LABORATORY-C ENTRAL LABORATORY Final Diagnosis A) STOMACH, BIOPSY: 1. Normal gastric antral and body mucosae with endoscopic erosion (see comment) 2. Negative for chronic gastritis or Helicobacter 04/09/2024 11:12 AM FOREST PATHOLOGY ASSOCIATE PROFESSOR [facility] at 1112 FOREST PATHOLOGY ASSOCIATE PROFESSOR Comment A) We note the endoscopic presence of an erosion. The sampled mucosa is histologically normal. In this context patchy reactive gastropathy due to chemical type injury (NSAIDs, alcohol, bile reflux, etc.) seems likely. Please correlate clinically. 04/09/2024 11:12 AM FOREST PATHOLOGY ASSOCIATE PROFESSOR [facility]-C ENTRAL LABORATORY Clinical Information 73-year-old male with iron deficiency anemia and melena. He is on chronic aspirin, Plavix, and ibuprofen. EGD identified a single erosion in the prepyloric region of the stomach. 04/09/2024 11:12 AM [facility] Gross Description A) Received in formalin is a 6 x 3 x 1 mm aggregate of alvarez mucosa. Submitted in one cassette. It is labeled with the patient's name and designated gastric biopsy. Joana Estrada 04/08/2024 1:06 PM 04/09/2024 11:12 AM [facility] [employer] [facility] LABORATORY Microscopic Description The final diagnosis is based on microscopic examination of appropriate sections of all specimens. 04/09/2024 11:12 AM FOREST PATHOLOGY ASSOCIATE PROFESSOR [facility]-C ENTRAL LABORATORY Additional Information Interpreted at [facility] [employer] [facility], Central Laboratory - [address] [address] 04/09/2024 11:12 AM FOREST PATHOLOGY ASSOCIATE PROFESSOR [facility] LABORATORY Biopsy GASTRIC BIOPSY SPECIMEN / Unknown 04/08/2024 12:39 PM FOREST PATHOLOGY ASSOCIATE PROFESSOR 04/08/2024 12:44 PM FOREST PATHOLOGY ASSOCIATE PROFESSOR Chepe Francis MD PATHOLOGY/CYTOLOGY Christy griffith Result [facility] [address] [place] [address], * ENDOSCOPY (04/08/2024 9:49 AM FOREST PATHOLOGY ASSOCIATE PROFESSOR) 04/08/2024 9:49 AM FOREST PATHOLOGY ASSOCIATE PROFESSOR Narrative Transcriptions Chepe Francis MD - 04/08/2024 1:46 PM CST [place] [facility] Patient Name: Casey Soler Procedure Date: 04/08/2024 Gender: Male Date of : 1950 Admit Type: Inpatient Procedure: Upper GI endoscopy Proceduralist: Chepe Francis MD - [facility] [employer] Indications/Pre-Op Diagnosis: Iron deficiency anemia, Melena; chronicaspirin 81 mg and plavix; chronic ibuprofen usedaily; recently started on anticoagulation foratrial fibrillation Medications: Monitored Anesthesia Care Procedure Description: Risk of bleeding, infection, perforation, need for surgery and alternatives discussed. The endoscope [id number] was introduced through the mouth, and advanced [...] * EXTRA TUBE LAVENDER (04/08/2024 6:45 AM FOREST PATHOLOGY ASSOCIATE PROFESSOR) Only the most recent of2 resultswithin the time period is included. Blood BLOOD SPECIMEN / Unknown Non-Lab Venipuncture / Unknown 04/08/2024 6:45 AM FOREST PATHOLOGY ASSOCIATE PROFESSOR 04/08/2024 6:57 AM FOREST PATHOLOGY ASSOCIATE PROFESSOR Joseph Arora MD LABORATORY Final Re sult Performing Organization Address City/[facility]/ZIP Co de Phone Number [facility] [employer]-CENTRAL LABORATORY [address] [place] [id number], [place] * EXTRA TUBE BLUE (04/08/2024 6:45 AM FOREST PATHOLOGY ASSOCIATE PROFESSOR) Only the most recent of3 resultswithin the time period is included. Blood BLOOD SPECIMEN / Unknown Non-Lab Venipuncture / Unknown 04/08/2024 6:45 AM FOREST PATHOLOGY ASSOCIATE PROFESSOR 04/08/2024 6:57 AM FOREST PATHOLOGY ASSOCIATE PROFESSOR Joseph Arora MD LABORATORY Final Re sult Performing Organization Address City/[facility]/ZIP Co de Phone Number [facility] LABORATORY-CENTRAL LABORATORY [address] [place] [address], [place] * SCAN-CARDIAC STRIP (04/07/2024 11:52 PM FOREST PATHOLOGY ASSOCIATE PROFESSOR) us Scanner OTHER Final Result * (ABNORMAL) DIGOXIN (04/07/2024 1:50 PM FOREST PATHOLOGY ASSOCIATE PROFESSOR) DIGOXIN 2.5(H) 0.8 - 2.0 ng/mL 04/07/2024 2:32 PM FOREST PATHOLOGY ASSOCIATE PROFESSOR [facility] TRAL LABORATORY DATE OF LAST DOSE Not Given 04/07/2024 2:32 PM FOREST PATHOLOGY ASSOCIATE PROFESSOR [facility] TIME OF LAST DOSE Not Given 04/07/2024 2:32 PM FOREST PATHOLOGY ASSOCIATE PROFESSOR [facility] LABORATORY Blood BLOOD SPECIMEN / Unknown Venipuncture / Unknown 04/07/2024 1:50 PM FOREST PATHOLOGY ASSOCIATE PROFESSOR 04/07/2024 1:55 PM FOREST PATHOLOGY ASSOCIATE PROFESSOR Guille Choi NP CHEMISTRY Final Result Performing Organization Address [facility]/ZIP Co de Phone Number [facility] LABORATORY [address] [place] [address], * COVID/FLU/RSV PANEL (04/07/2024 9:48 AM FOREST PATHOLOGY ASSOCIATE PROFESSOR) Pathologist [facility] COVID 19 [facility] MOLECULAR Negative Negative 04/07/2024 12:16 PM FOREST PATHOLOGY ASSOCIATE PROFESSOR [facility] LABORATORY Comment:All PCR tests are krishnan bject to false negative result due to variability in viral load and collection technique. A negative result does not rule out a SARS-CoV-2 infection. Clinical correlation required. INFLUENZA A PCR Negative 12:16 PM FOREST PATHOLOGY ASSOCIATE PROFESSOR [facility] LABORATORY INFLUENZA B PCR Negative 12:16 PM FOREST PATHOLOGY ASSOCIATE PROFESSOR [facility] LABORATORY Respiratory Syncytial Virus Negative 04/07/2024 12:16 PM FOREST PATHOLOGY ASSOCIATE PROFESSOR [facility] LABORATORY Swab NASOPHARYNGEAL SWAB / Unknown Non-Blood / Unknown 04/07/2024 9:48 AM FOREST PATHOLOGY ASSOCIATE PROFESSOR 04/07/2024 10:17 AM FOREST PATHOLOGY ASSOCIATE PROFESSOR Joseph Arora MD MICROBIOLOGY Final Re sult [facility] LABORATORY-CENTRAL LABORATORY [address] [address], * ICD ANALYSIS DUAL WITHOUT REPROGRAM (04/07/2024 9:05 AM FOREST PATHOLOGY ASSOCIATE PROFESSOR) Narrative Chato Benz MD - 04/07/2024 9:05 AM FOREST PATHOLOGY ASSOCIATE PROFESSOR Mirela Bates RN 04/07/2024 9:59 AM ICD EVALUATION REPORT April 07, 2024 Summary: Normal pacemaker function. Lead trends stable. One AT/AF detection- beginning on 04/03/24 and has continuous since this time. Poor ventricular rate control. One VT detection on 01/29/24- 3 seconds rate of 233 bpm. AP 35.8%, CONSTRUCTION PROJECT ENGINEER 2.2%. Battery estimating 11.3 years remaining. Indication for ICD: Primary Prevention of Sudden Cardiac Primary MD: Shana Lozano DO Primary Wildlife Control Agent: [facility] Implanting MD: Bert Quiros- [facility] DEVICE DATA Processing Specialist [employer]: Model Gooding XT DR [id number] Implant Date 04/09/2023 LEAD DATA Atrial Lead: Processing Specialist [employer]: Model 5076-52 cm Implant Date 04/09/23 RV Lead: Processing Specialist [employer]: Model 6935M-62 cm Implant Date [...] Tachy therapy hx: none Location of evaluation: [facility] [id number] Reason for evaluation: MD request [...] permanent changes made. Follow up: follows with [facility] device clinic Mirela Bates RN Nurse Clinician II [facility] Pacemaker/ICD Clinic [phone] us Chato Benz MD CARDIAC SERVICES ORD F inal Result * ECHO TTE LIMITED W CONTRAST W COLOR W DOPPLER (04/07/2024 8:53 AM FOREST PATHOLOGY ASSOCIATE PROFESSOR) AORTIC VALVE MEAN PG 2 mmHg EJECTION FRACTION 20 % LVEDD 6.6 cm Anatomical Region Laterality Modality Ultrasound 04/07/2024 8:08 AM FOREST PATHOLOGY ASSOCIATE PROFESSOR Narrative 04/07/2024 9:36 AM FOREST PATHOLOGY ASSOCIATE PROFESSOR ECHOCARDIOGRAM CASEY SOLER : 1950 73 years Study Date: 04/07/2024 8:08:24 AM Gender: M BP: 90/87 mmHg Height: 172.00 cm BSA: 1.94 m Weight: 81.00 kg Tech: LETICIA Referring MD: GUILLE CHOI Site: [facility] Reading Location: ANW IP Patient Location: [...] documentation: 2 ml diluted Definity, lot #[id number], [facility]# [id number] was administered peripherally to enhance visualization of all left ventricular segments. . This study was interpreted by an [facility] accredited facility. Final Procedure Note Jayashree Velarde MD - 04/07/2024 ECHOCARDIOGRAM CASEY SOLER : 1950 73 years Study Date: 04/07/2024 8:08:24 AM Gender: M BP: 90/87 mmHg Height: 172.00 cm BSA: 1.94 m Weight: 81.00 kg Tech: LETICIA Casas MD: GUILLE CHOI Site: [facility] Reading Location: [facility] Patient Location: Inpatient. Procedure: Limited Echo w/ [...] documentation: 2 ml diluted Definity, lot #[id number], [facility]#[id number] was administered peripherally to enhance visualization of allleft ventricular segments. . This study was interpreted by an [facility] accredited facility. Final us Guille Choi NP ECHO ORD Final Result * (ABNORMAL) LACTATE VENOUS (04/07/2024 6:20 AM FOREST PATHOLOGY ASSOCIATE PROFESSOR) Only the most recent of3 resultswithin the time period is included. Pathologist [facility] LACTATE,VENOUS 2.5(H) 0.5 - 2.0 mmol/L 04/07/2024 7:32 AM FOREST PATHOLOGY ASSOCIATE PROFESSOR [facility] LABORATORY Blood BLOOD SPECIMEN / Unknown Venipuncture / Unknown 04/07/2024 6:20 AM FOREST PATHOLOGY ASSOCIATE PROFESSOR 04/07/2024 6:59 AM FOREST PATHOLOGY ASSOCIATE PROFESSOR us Guille Choi NP CHEMISTRY Final Result Performing Organization Address City/[facility]/ZIP Co de Phone Number [facility] LABORATORY [address] [place] [address], [place] * SCAN-CARDIAC STRIP (04/07/2024 5:29 AM FOREST PATHOLOGY ASSOCIATE PROFESSOR) us Scanner OTHER Final Result * SCAN-CARDIAC STRIP (04/07/2024 3:14 AM FOREST PATHOLOGY ASSOCIATE PROFESSOR) us Scanner OTHER Final Result * TYPE & SCREEN (04/07/2024 12:39 AM FOREST PATHOLOGY ASSOCIATE PROFESSOR) Pathologist [facility] ABORH A Rh Positive 04/07/2024 2:10 AM FOREST PATHOLOGY ASSOCIATE PROFESSOR [facility] LAB-CENTRAL LAB BLOOD BANK ANTIBODY SCREEN Negative Negative 04/07/2024 2:10 AM FOREST PATHOLOGY ASSOCIATE PROFESSOR [facility] [employer] [facility]TR[facility] BLOOD BANK SPECIMEN EXPIRATION DATE/TIME 04/10/24 23:59 04/07/2024 2:10 AM FOREST PATHOLOGY ASSOCIATE PROFESSOR [facility] BLOOD BANK Blood BLOOD SPECIMEN / Unknown Butterfly / Unknown 04/07/2024 12:39 AM FOREST PATHOLOGY ASSOCIATE PROFESSOR 04/07/2024 1:05 AM FOREST PATHOLOGY ASSOCIATE PROFESSOR Guille Choi NP BLOOD BANK Final Result Performing Organization Address City/[facility]/ZIP Co de Phone Number [facility] BLOOD BANK [address] [place] [address], [place] [phone] * (ABNORMAL) Iron plus iron binding cap AM (04/07/2024 12:39 AM FOREST PATHOLOGY ASSOCIATE PROFESSOR) IRON 57(L) 61 - 157 ug/dL 04/07/2024 2:03 AM FOREST PATHOLOGY ASSOCIATE PROFESSOR [facility] LABORATORY UIBC (UNSATURATED) 229 112 - 347 ug/dL 04/07/2024 2:03 AM FOREST PATHOLOGY ASSOCIATE PROFESSOR [facility] LABORATORY IRON BINDING CAPACITY 286 250 - 400 ug/dL 04/07/2024 2:03 AM FOREST PATHOLOGY ASSOCIATE PROFESSOR [facility] LABORATORY IRON,% SATURATION 20 14 - 50 % 04/07/2024 2:03 AM FOREST PATHOLOGY ASSOCIATE PROFESSOR [facility] LABORATORY Blood BLOOD SPECIMEN / Unknown Butterfly / Unknown 04/07/2024 12:39 AM FOREST PATHOLOGY ASSOCIATE PROFESSOR 04/07/2024 1:05 AM FOREST PATHOLOGY ASSOCIATE PROFESSOR Parmjit Berrios MD CHEMISTRY Final Resul t Performing Organization Address City/[facility]/ZIP Co de Phone Number [facility] LABORATORY [address] [place] [address], * (ABNORMAL) Reticulocyte count AM (04/07/2024 12:39 AM FOREST PATHOLOGY ASSOCIATE PROFESSOR) Pathologist [facility] RETIC% 2.3(H) 0.5 - 1.5 % 04/07/2024 1:35 AM FOREST PATHOLOGY ASSOCIATE PROFESSOR [facility] TRA LABORATORY RETIC (ABSOLUTE) 0.09(H) 0.03 - 0.08 mil/cu mm 04/07/2024 1:35 AM FOREST PATHOLOGY ASSOCIATE PROFESSOR [facility] LABORATORY Blood BLOOD SPECIMEN / Unknown Butterfly / Unknown 04/07/2024 12:39 AM FOREST PATHOLOGY ASSOCIATE PROFESSOR 04/07/2024 1:05 AM FOREST PATHOLOGY ASSOCIATE PROFESSOR us Parmjit Berrios MD HEMATOLOGY Final Resul t Performing Organization Address City/[facility]/ZIP Co de Phone Number [facility] LABORATORY [address] [place] [address], [place] * Ferritin AM (04/07/2024 12:39 AM FOREST PATHOLOGY ASSOCIATE PROFESSOR) FERRITIN 275.0 30.0 - 400.0 ng/mL 04/07/2024 1:58 AM [facility] LABORATORY Blood BLOOD SPECIMEN / Unknown Butterfly / Unknown 04/07/2024 12:39 AM FOREST PATHOLOGY ASSOCIATE PROFESSOR 04/07/2024 1:05 AM [facility] us Parmjit Berrios MD CHEMISTRY Final Resul t [facility] LABORATORY [address] [place] [address], * (ABNORMAL) COMP METABOLIC PANEL (04/07/2024 12:39 AM FOREST PATHOLOGY ASSOCIATE PROFESSOR) SODIUM 131(L) 136 - 145 mmol/L 04/07/2024 1:30 AM [facility] TRAL LABORATORY POTASSIUM 3.8 3.5 - 5.1 mmol/L 04/07/2024 1:30 AM [facility] TRAL LABORATORY CHLORIDE 86(L) 98 - 107 mmol/L 04/07/2024 1:30 AM [facility] TRAL LABORATORY CO2,TOTAL 23 22 - 29 mmol/L 04/07/2024 1:30 AM [facility] TRAL LABORATORY ANION GAP 22(H) 5 - 18 04/07/2024 1:30 AM [facility] TRAL LABORATORY GLUCOSE 110(H) 70 - 99 mg/dL 04/07/2024 1:30 AM [facility] TRAL LABORATORY CALCIUM 9.1 8.8 - 10.4 mg/dL 04/07/2024 1:30 AM [facility] TRAL LABORATORY Comment: Reference ranges for this test were updated on 01/06/2024 to reflect our healthy population more accurately. Reference range changes are not retroactively applied to results, but previous results using the same methodology can be interpreted in the context of the new reference range. BUN 94(H) 8 - 23 mg/dL 04/07/2024 1:30 AM [facility] TRAL LABORATORY CREATININE 2.41(H) 0.70 - 1.20 mg/dL 04/07/2024 1:30 AM [facility] TRA LABORATORY BUN/CREAT RATIO 39(H) 10 - 20 1:30 AM [facility] LABORATORY eGFR 28(L) >90 mL/min/1. 73m2 04/07/2024 1:30 AM [facility] LABORATORY Comment:As of 2021, eG FR is calculated by the CKD-EPI creatinine equation without race adjustment. eGFR can be influenced by muscle mass, exercise, and diet. The reported eGFR is an estimation only and is only applicable if the renal function is stable. ALBUMIN 3.8(L) 4.0 - 4.9 g/dL 04/07/2024 1:30 AM [facility] TRA LABORATORY PROTEIN,TOTAL 6.4 6.0 - 8.0 g/dL 04/07/2024 1:30 AM [facility] LABORATORY BILIRUBIN,TOTAL 0.7 0.0 - 1.2 mg/dL 04/07/2024 1:30 AM [facility] LABORATORY ALK PHOSPHATASE 96 40 - 129 IU/L 04/07/2024 1:30 AM [facility] LABORATORY ALT (SGPT) 9(L) 10 - 50 IU/L 04/07/2024 1:30 AM [facility] LABORATORY AST (SGOT) 22 10 - 50 IU/L 04/07/2024 1:30 AM [facility] LABORATORY Blood BLOOD SPECIMEN / Unknown Butterfly / Unknown 04/07/2024 12:39 AM FOREST PATHOLOGY ASSOCIATE PROFESSOR 04/07/2024 1:05 AM FOREST PATHOLOGY ASSOCIATE PROFESSOR us Guille Choi NP CHEMISTRY Final Result [facility] LABORATORY [address] [place] [address], [place] * XR CHEST 1 VIEW PORTABLE (04/06/2024 8:19 PM FOREST PATHOLOGY ASSOCIATE PROFESSOR) Anatomical Region Laterality Modality HEART, THORAX, CHEST Computed Ra diography 04/06/2024 8:19 PM FOREST PATHOLOGY ASSOCIATE PROFESSOR Impressions 04/06/2024 8:48 PM FOREST PATHOLOGY ASSOCIATE PROFESSOR Stable size of cardiomediastinal silhouette with pacemaker/AICD leads overlying the right atrium and right ventricle. Likely pulmonary vascular congestion with subtle interstitial opacities in the lung bases, right greater than left, differential includes mild edema and atypical infectious/inflammatory process. No definite pleural effusion or pneumothorax. No acute bony abnormality. Narrative 04/06/2024 8:48 PM FOREST PATHOLOGY ASSOCIATE PROFESSOR For Patients: As a result of the Cures Act, medical imaging exams and procedure reports are released immediately into your electronic medical record. You may view this report before your referring provider. If you have questions, please contact your health care provider. EXAM: XR CHEST 1 VIEW PORTABLE LOCATION: [facility] DATE: 04/06/2024 INDICATION: Shortness of breath COMPARISON: Chest radiograph 04/09/2023. Procedure Note Derek Jain MD - 04/06/2024 For Patients: As a result of the Cures Act, medical imagingexams and procedure reports are released immediately into your electronicmedical record. You may view this report before your referring provider.If you have questions, please contact your health care provider. EXAM: XR CHEST 1 VIEW PORTABLE LOCATION: [facility] DATE: 04/06/2024 INDICATION: Shortness of breath COMPARISON: [...] * (ABNORMAL) TROPONIN I (04/06/2024 7:53 PM FOREST PATHOLOGY ASSOCIATE PROFESSOR) Only the most recent of2 resultswithin the time period is included. TROPONIN I KELLI 0.043(HH) <0.030 ng/mL 04/06/2024 8:31 PM FOREST PATHOLOGY ASSOCIATE PROFESSOR [facility] Blood BLOOD SPECIMEN / Unknown Venipuncture / Unknown 04/06/2024 7:53 PM FOREST PATHOLOGY ASSOCIATE PROFESSOR 04/06/2024 7:59 PM FOREST PATHOLOGY ASSOCIATE PROFESSOR us John Ramirez MD CHEMISTRY Final Result [facility] [address] [place] [address], [place] [phone] * BEDSIDE US STUDY ARCHIVE (04/06/2024 3:07 PM FOREST PATHOLOGY ASSOCIATE PROFESSOR) Narrative Charly Monroe MD - 04/06/2024 3:07 PM FOREST PATHOLOGY ASSOCIATE PROFESSOR Jun Mar MD 04/06/2024 3:08 PM BEDSIDE [...] CBC WITH AUTO DIFFERENTIAL (04/06/2024 2:45 PM FOREST PATHOLOGY ASSOCIATE PROFESSOR) WHITE BLOOD COUNT 12.6 4.5 - 13.5 thou/cu mm 04/06/2024 3:10 PM [facility] RED BLOOD COUNT 4.39(L) 4.70 - 6.10 mil/cu mm 04/06/2024 3:10 PM [facility] HEMOGLOBIN 13.0(L) 13.5 - 17.5 g/dL 04/06/2024 3:10 PM [facility] HEMATOCRIT 39.5(L) 42.0 - 52.0 % 04/06/2024 3:10 PM [facility] MCV 90 80 - 94 fL 04/06/2024 3:10 PM [facility] MCH 29.6 27.0 - 31.0 pg 04/06/2024 3:10 PM [facility] MCHC 32.9(L) 33.0 - 36.0 g/dL 04/06/2024 3:10 PM [facility] RDW 17.4(H) 11.6 - 14.8 % 04/06/2024 3:10 PM [facility] PLATELET COUNT 341 130 - 400 thou/cu mm 04/06/2024 3:10 PM [facility] MPV 10.6(H) 7.4 - 10.4 fL 04/06/2024 3:10 PM [facility] NRBC 0.0 0.0 - 0.9 % 04/06/2024 3:10 PM [facility] % NEUT 85.1(H) 37.0 - 80.0 % 04/06/2024 3:10 PM [facility] % LYMPH 5.6(L) 10.0 - 50.0 % 04/06/2024 3:10 PM [facility] % MONO 6.8 0.0 - 12.0 % 04/06/2024 3:10 PM [facility] % EOS 0.6 0.0 - 7.0 % 04/06/2024 3:10 PM [facility] % BASO 0.4 0.0 - 2.5 % 04/06/2024 3:10 PM [facility] % IMMATURE GRAN (METAS,MYELOS,NY OS) 1.5 % 04/06/2024 3:10 PM [facility] ABSOLUTE NEUTROPHILS 10.7(H) 2.0 - 6.9 thou/cu mm 04/06/2024 3:10 PM [facility] ABSOLUTE LYMPHOCYTES 0.7 0.6 - 3.4 thou/cu mm 04/06/2024 3:10 PM [facility] ABSOLUTE MONOCYTES 0.9 0.0 - 1.0 thou/cu mm 04/06/2024 3:10 PM [facility] ABSOLUTE EOSINOPHILS 0.1 <=0.7 thou/cu mm 04/06/2024 3:10 PM [facility] ABSOLUTE BASOPHILS 0.1 <0.2 thou/cu mm 04/06/2024 3:10 PM [facility] ABSOLUTE IMMATURE GRANULOCYTES(MET ,MYELOS,PROS) 0.2 <0.3 thou/cu mm 04/06/2024 3:10 PM FOREST PATHOLOGY ASSOCIATE PROFESSOR [facility] Blood BLOOD SPECIMEN / Unknown IV Start / Unknown 04/06/2024 2:45 PM FOREST PATHOLOGY ASSOCIATE PROFESSOR 04/06/2024 3:00 PM FOREST PATHOLOGY ASSOCIATE PROFESSOR us Jun Mar MD HEMATOLOGY Final Result Performing Organization Address [facility] Co de Phone Number [place] [address] [place] [address], * EXTRA TUBE GOLD/SST (04/06/2024 2:45 PM FOREST PATHOLOGY ASSOCIATE PROFESSOR) Blood BLOOD SPECIMEN / Unknown Extra Tube / Unknown 04/06/2024 2:45 PM FOREST PATHOLOGY ASSOCIATE PROFESSOR 04/06/2024 4:05 PM FOREST PATHOLOGY ASSOCIATE PROFESSOR us Charly Monroe MD LABORATORY Final Res ult Performing Organization Address [facility] Co de Phone Number [place] [address] [place] [address], * TSH WITH REFLEX (04/06/2024 2:45 PM FOREST PATHOLOGY ASSOCIATE PROFESSOR) TSH 3.73 0.35 - 4.94 uIU/mL 04/06/2024 3:43 PM FOREST PATHOLOGY ASSOCIATE PROFESSOR [facility] Blood BLOOD SPECIMEN / Unknown IV Start / Unknown 04/06/2024 2:45 PM FOREST PATHOLOGY ASSOCIATE PROFESSOR 04/06/2024 3:00 PM FOREST PATHOLOGY ASSOCIATE PROFESSOR us Jun Mar MD CHEMISTRY Final Result Performing Organization Address [facility] [[email or web address]] de Phone Number [place] [address] [place] [address], * (ABNORMAL) BRAIN NATRIURETIC PEPTIDE (04/06/2024 2:45 PM FOREST PATHOLOGY ASSOCIATE PROFESSOR) BRAIN JEANCARLOS PEPTIDE 993(H) <100 pg/mL 04/06/2024 3:30 PM FOREST PATHOLOGY ASSOCIATE PROFESSOR [facility] Blood BLOOD SPECIMEN / Unknown IV Start / Unknown 04/06/2024 2:45 PM FOREST PATHOLOGY ASSOCIATE PROFESSOR 04/06/2024 3:05 PM FOREST PATHOLOGY ASSOCIATE PROFESSOR us Charly Monroe MD CHEMISTRY Final Res ult [facility] [address] [place] [address], [place] [phone] * SLIDE REVIEW (04/06/2024 2:45 PM FOREST PATHOLOGY ASSOCIATE PROFESSOR) POIKILOCYTOSIS 1+ 04/06/2024 3:35 PM FOREST PATHOLOGY ASSOCIATE PROFESSOR [facility] POLYCHROMASIA 1+ 04/06/2024 3:35 PM FOREST PATHOLOGY ASSOCIATE PROFESSOR [facility] MORPHOLOGY COMMENT Ovalocytes Present 04/06/2024 3:35 PM FOREST PATHOLOGY ASSOCIATE PROFESSOR [facility] MORPHOLOGY COMMENT Stomatocytes Present 04/06/2024 3:35 PM FOREST PATHOLOGY ASSOCIATE PROFESSOR [facility] PLT COMMENT Adequate 04/06/2024 3:35 PM FOREST PATHOLOGY ASSOCIATE PROFESSOR [facility] Blood BLOOD SPECIMEN / Unknown IV Start / Unknown 04/06/2024 2:45 PM FOREST PATHOLOGY ASSOCIATE PROFESSOR 04/06/2024 3:00 PM FOREST PATHOLOGY ASSOCIATE PROFESSOR us Jun Mar MD LABORATORY Final Result Performing Organization Address City/[facility]/ZIP Co de Phone Number [facility] [address] [place] [address], [place] [phone] * (ABNORMAL) Heparin Level ( aka XA) (04/06/2024 2:45 PM FOREST PATHOLOGY ASSOCIATE PROFESSOR) HEPARIN LEVEL <0.04(LL) 0.32 - 0.63 U/mL 04/06/2024 7:11 PM FOREST PATHOLOGY ASSOCIATE PROFESSOR [facility] Blood BLOOD SPECIMEN / Unknown IV Start / Unknown 04/06/2024 2:45 PM FOREST PATHOLOGY ASSOCIATE PROFESSOR 04/06/2024 6:09 PM FOREST PATHOLOGY ASSOCIATE PROFESSOR us Jun Mar MD HEMATOLOGY Final Result [facility] [facility] [address] [place] [address], [place] [phone] * APTT (04/06/2024 2:45 PM FOREST PATHOLOGY ASSOCIATE PROFESSOR) APTT 28 25 - 37 sec 04/06/2024 6:20 PM FOREST PATHOLOGY ASSOCIATE PROFESSOR [facility] Blood BLOOD SPECIMEN / Unknown IV Start / Unknown 04/06/2024 2:45 PM FOREST PATHOLOGY ASSOCIATE PROFESSOR 04/06/2024 6:09 PM FOREST PATHOLOGY ASSOCIATE PROFESSOR Narrative [facility] - 04/06/2024 6:20 PM FOREST PATHOLOGY ASSOCIATE PROFESSOR Therapeutic Range 64-83 seconds. us Jun Mar MD HEMATOLOGY Final Result [facility] [address] [place] [address], [place] [phone] * SCAN-CARDIAC STRIP (04/06/2024 12:00 AM FOREST PATHOLOGY ASSOCIATE PROFESSOR) Narrative 04/06/2024 12:00 AM FOREST PATHOLOGY ASSOCIATE PROFESSOR Ordered by an unspecified provider. us Other Clinical Staff OTHER Final Resul t * SCAN-CARDIAC STRIP (04/06/2024 12:00 AM FOREST PATHOLOGY ASSOCIATE PROFESSOR) Narrative 04/06/2024 12:00 AM FOREST PATHOLOGY ASSOCIATE PROFESSOR Ordered by an unspecified provider. us Other Clinical Staff OTHER Final Resul t * SCAN-CARDIAC STRIP (03/22/2024 12:00 AM FOREST PATHOLOGY ASSOCIATE PROFESSOR) Narrative 03/22/2024 12:00 AM FOREST PATHOLOGY ASSOCIATE PROFESSOR Ordered by an unspecified provider. us Other Clinical Staff OTHER Final Resul t * SCAN-CARDIAC STRIP (03/15/2024 12:00 AM FOREST PATHOLOGY ASSOCIATE PROFESSOR) Narrative 03/15/2024 12:00 AM FOREST PATHOLOGY ASSOCIATE PROFESSOR Ordered by an unspecified provider. us Other Clinical Staff OTHER Final Resul t * SCAN-CARDIAC STRIP (03/08/2024 12:00 AM FOREST PATHOLOGY ASSOCIATE PROFESSOR) Narrative 03/08/2024 12:00 AM FOREST PATHOLOGY ASSOCIATE PROFESSOR Ordered by an unspecified provider. us Other Clinical Staff OTHER Final Resul t * CT ABDOMEN PELVIS WO (01/16/2024 4:53 AM FOREST PATHOLOGY ASSOCIATE PROFESSOR) Anatomical Region Laterality Modality Abdomen, Pelvis, AORTA, LIVER, SPLEEN Computed Tomography 01/16/2024 4:53 AM FOREST PATHOLOGY ASSOCIATE PROFESSOR Impressions 01/16/2024 5:21 AM FOREST PATHOLOGY ASSOCIATE PROFESSOR 1. No obstructing ureteral or bladder calculi. [...] fat-containing umbilical hernia. Narrative 01/16/2024 5:21 AM FOREST PATHOLOGY ASSOCIATE PROFESSOR For Patients: As a result of the Cures Act, medical imaging exams and procedure reports are released immediately into your electronic medical record. You may view this report before your referring provider. If you have questions, please contact your health care provider. EXAM: CT ABDOMEN PELVIS WO LOCATION: [facility] DATE: 01/16/2024 INDICATION: Abdominal pain, acute, nonlocalized. [...] disc changes in the spine. Procedure Note Behrns, Jack Daniel, MD - 01/16/2024 For Patients: As a result of the 21st Century Cures Act, medical imagingexams and procedure reports are released immediately into your electronicmedical record. You may view this report before your referring provider.If you have questions, please contact your health care provider. EXAM: CT ABDOMEN PELVIS WO LOCATION: [facility] DATE: 01/16/2024 INDICATION: Abdominal pain, acute, nonlocalized. [...] 105 <=200 mg/dL 11/20/2023 3:06 PM CDT [facility] TRIGLYCERIDES 103 <150 mg/dL 11/20/2023 3:06 PM CDT [facility] HDL CHOLESTEROL 33(L) >40 mg/dL 3:06 PM CDT [facility] CHOL/HDL RATIO 3.18 <=4.00 11/20/2023 3:06 PM CDT [facility] LDL CHOLESTEROL 51 <=130 mg/dL 11/20/2023 3:06 PM CDT [facility] PATIENT STATUS NON-FASTI NG 11/20/2023 3:06 PM CDT [facility] Blood BLOOD SPECIMEN / Unknown Venipuncture / Unknown 11/20/2023 1:57 PM CDT 11/20/2023 2:09 PM CDT Shana Lozano DO CHEMISTRY Final Result [facility] [address] [place] [address], * CT CHEST SCREENING LOW DOSE WO [...] DOSE LUNG CANCER SCREENING CT CHEST LOCATION: [facility] DATE: 08/07/2023 INDICATION: Lung cancer screening. History [...] DOSE LUNG CANCER SCREENING CT CHEST LOCATION: [facility] DATE: 08/07/2023 INDICATION: Lung cancer screening. History [...] screening with low-dose CTchest in 12 months. [place] DO CT Final Result * ANTI HCV (06/11/2022 2:16 PM CDT) HEPATITIS C ANTIBODY Non-Reacti ve Non-React lisa 06/11/2022 4:14 PM CDT [facility] Comment:Antibodies to HCV no t detected; does not exclude the possibility of exposure to HCV. Blood BLOOD SPECIMEN / Unknown Venipuncture / Unknown 06/11/2022 2:16 PM CDT 06/11/2022 2:17 PM CDT [facility] [employer] L Skarda DO SEND OUTS Final Result [facility] [address] [place] [address], [place] [phone] * HM COLONOSCOPY (08/14/2011) COLONOSCOPY Done [facility] 08/14/2011 us Doctor Unknown HEALTH MAINT RESULTS Final Resul t [facility] [address] [place] [address], [place] [phone] from Last 3 Months or Most Recently Relevant to Health Maintenance Insurance [facility] DUAL COMPLETE MEDICARE PART A HB ONLY [facility] MR MEDICARE PART B HB ONLY [facility] PPS Advance Directives Documents on File Type Date Recorded Patient Inventory Coordinator Expl anation Healthcare Directive 04/20/2024 5:43 AM [...] Code Status Discussion: Reviewed Preferences Care Teams Slot Shift Manager Relationship Specialty Start Date End Date Humberto, Sadi C, MD [address] [place] [address] PCP - General Family Practice 05/13/24 [facility] [place] [address] [address] 04/21/24 [facility] [place] [address] [address] 05/25/24
[2024-06-03 17:30] VITALS: BP 104/72; PULSE 106; RESP 18; TEMP 36.3; O2SAT 90; BMI 26.6
--- NOTE | 2024-06-03 17:37 | ED_ITS ---
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 According to patient and family, he had a fall 2 days ago when he fell down to his knees, no head injury, patient is un sure if he injured his right foot. Yesterday he slid out of bed again no head injury. This morning he developed some right foot pain, mostly in the big toe, home nurse noticed some abrasions on the medial aspect of the foot, there is also some increased redness and warmth to the area. No history of any MRSA. No history of any cellulitis. Patient is also had increased lower extremity edema. Denies any worsening shortness of breath. No fevers or chills. Patient did have a history of gout in the past, mostly in his knees. Was placed on allopurinol for this. Patient is able to ambulate on that foot, pain is 9/10. Related Data Home Medications ?Medication ?Instructions ?Recorded ?Confirmed ondansetron 4 mg disintegrating 4 mg PO Q8H PRN 05/11/24 05/17/24 tablet acetaminophen 500 mg tablet 1,000 mg PO HS 05/17/24 05/17/24 albuterol sulfate 90 mcg/actuation 2 puff inhalation Q6H PRN 05/17/24 05/17/24 aerosol inhaler amiodarone 200 mg tablet 200 mg PO DAILY 05/17/24 05/17/24 dobutamine See Rx Instructions .Route .COMPLEX 05/17/24 05/17/24 magnesium oxide 250 mg PO DAILY 05/17/24 05/17/24 meclizine 25 mg tablet 25 mg PO TID PRN 05/17/24 05/17/24 pramipexole 0.25 mg tablet 0.125 mg PO HS 05/17/24 05/17/24 sennosides 8.6 mg tablet 8.6 - 17.2 mg PO BID 05/17/24 05/17/24 torsemide 20 mg tablet 20 mg PO DAILY PRN 05/17/24 05/17/24 Previous Rx's ?Medication ?Instructions ?Recorded midodrine 2.5 mg tablet 2.5 mg PO TID #90 tabs 05/29/24 warfarin 1 mg tablet 1 mg PO DAILY #90 tabs 05/29/24 atorvastatin 40 mg tablet 40 mg PO DAILY #90 tabs 06/02/24 pantoprazole 40 mg tablet,delayed 40 mg PO BID #60 tabs 06/02/24 release prednisone 20 mg tablet 40 mg (2 x 20 mg) PO DAILY 5 days 06/03/24 #10 tabs Allergies Allergy/AdvReac Type Severity Reaction Status Date / Time codeine Allergy Severe dizzniness/ Verified 05/16/24 15:01 nausea Review of Systems Status of ROS: Reports: 10 or more systems reviewed and unremarkable except as noted in History and below [facility] Medical History (Updated 06/03/24 @ 19:23 by Vasyl Sabillon MD) History of tobacco use ?Z87.891 - Personal history of nicotine dependence (ICD-10) History of atrial fibrillation ?Z86.79 - Personal history of other diseases of the circulatory system (ICD- 10) Gout ?M10.9 - Gout, unspecified (ICD-10) Hyperlipidemia ?E78.5 - Hyperlipidemia, unspecified (ICD-10) Severe mitral regurgitation by prior echocardiogram ?I34.0 - Nonrheumatic mitral (valve) insufficiency (ICD-10) Chronic heart failure with reduced ejection fraction (HFrEF, <= 40%) ?I50.22 - Chronic systolic (congestive) heart failure (ICD-10) Pure hypercholesterolemia (12/07/20) ?E78.00 - Pure hypercholesterolemia, unspecified (ICD-10) Pulmonary emphysema (02/12/21) ?J43.9 - Emphysema, unspecified (ICD-10) Lactic acidosis (04/07/24) ?E87.20 - Acidosis, unspecified (ICD-10) Ischemic cardiomyopathy (12/07/20) ?I25.5 - Ischemic cardiomyopathy (ICD-10) Chronic kidney disease, stage 3b (06/19/23) ?N18.32 - Chronic kidney disease, stage 3b (ICD-10) Cardiogenic shock (04/07/24) ?R57.0 - Cardiogenic shock (ICD-10) Atrial fibrillation with rapid ventricular response (04/07/24) ?I48.91 - Unspecified atrial fibrillation (ICD-10) Acute renal failure superimposed on stage 3b chronic kidney disease (04/07/24) ?N17.9 - Acute kidney failure, unspecified (ICD-10) ?N18.32 - Chronic kidney disease, stage 3b (ICD-10) Acute on chronic systolic and diastolic heart failure, NYHA class 3 (04/07/24) ?I50.43 - Acute on chronic combined systolic (congestive) and diastolic (congestive) heart failure (ICD-10) Acute GI bleeding (04/07/24) ?K92.2 - Gastrointestinal hemorrhage, unspecified (ICD-10) Surgical History Status post appendectomy ?Z90.49 - Acquired absence of other specified parts of digestive tract (ICD- 10) Status post lumbar laminectomy ?Z98.890 - Other specified postprocedural states (ICD-10) Status post coronary artery stent placement ?Z95.5 - Presence of coronary angioplasty implant and graft (ICD-10) Family History Mother Breast cancer Father Colon cancer Social History Narrative: . Single. 2 children. Now lives with daughter and grandson. Recently moved from [place], where he was living alone, independently. Retired. Designates daughterChan, as medical decision maker if he is not able to speak on his own behalf, . DNR DNI resuscitation status. Follows with [facility]. Considering the possibility of hospice services. Former smoker. Does not drink alcohol. What is your current living situation?: I presently have a place to live Problems where you live: no known problems Problems where you live details: N/A In the past 12 months, utilities in danger of being shut off: no In past 12 months, lack of transportation kept you from medical appts, meetings, work, or getting things needed for daily living: no In the past 12 mos, have been you worried that your food would run out before you had money to buy more?: never true In the past 12 mos, the food you bought just didn't last and you didn't have money to buy more?: never true Highest level of school completed/degree received: Associate degree: occupational, technical, vocational program Smoking Status: Never smoker Do you use any of these nicotine containing products: None Second hand tobacco smoke exposure: No How often do you have a drink containing alcohol: never How often do you have six or more drinks on one occasion: Never AUDIT-C Alcohol total score: 0 Non-prescribed substance use: denies use Caffeine: No How often does anyone, including family, friends and others, physically hurt you : never How often does anyone, including family, friends and others, insult or talk down to you: never How often does anyone, including family, friends and others, threaten you with harm: never How often does anyone, including family, friends and others, scream or curse at you: never service: No Exam Narrative: Exam Narrative: General: NAD laying comfortably HEENT: Pupils equal round reactive to light, extraocular muscles intact Heart: S1-S2 Lungs: Mild expiratory wheezes throughout all lung cyr, mild bibasilar rhonchi R>L. Lower extremities: +2 pitting edema bilaterally,. Right foot: Patent anterior tibial pulse, capillary refill <2 sec, distal MTP and big toe tender to palpation mild erythema and warmth, no ecchymosis, full range of motion. Small superficial abrasion surrounding the ankle. Neuro: Alert awake and oriented x3 Const: Vital Signs, click to edit/add: Vital Signs - 24 hr 06/03/24 17:30 Temperature 97.3 F L Pulse Rate [Pulse Oximeter] 106 H Respiratory Rate 18 Blood Pressure [Ri ght Upper Arm] 104/72 Pulse Oximetry 90 Oxygen Delivery Me thod Room Air Course Course ED Course: 5:30 PM: aidet performed. Vitals are normal at this time, workup will include CBC, CRP, BMP and uric acid level, due to patient's recent injury will plan to rule out any fracture, XR foot right3+ views. Differential includes fracture, dislocation, ligament injury, contusion, gout, cellulitis, abscess, peripheral vascular disease. Patient does have a history of gout in the past, risk factors include renal disease, red meat, on diuretics, and drinks occasional beer. Based on creatinine clearance 26, not be able to prescribe colchicine or NSAIDS. Patient has had prednisone in the past due to his COPD, likely prescribe prednisone for the next 5 days. ED disposition pending clinical course. Reevaluation(s) Reevaluation #1: XR right foot 3 + views: Impression: No acute osseous abnormality noted. CBC showed no leukocytosis, chronic anemia, CRP within normal limits, uric acid level elevated at 12.7, imaging showed no acute fracture or dislocation, patient was given 40 mg oral prednisone here, surgical shoe placed for support, short course prescription for prednisone 40 mg over the next 5 days sent to [facility], additional script given to family for Duricef 500 mg daily over 7 days if any increased redness and warmth with streaking occurs as well as associated fevers, patient follow-up with primary care provider over the next 7- 10 days. Vital Signs Vital signs: Initial Vital Signs Temperature 97.3 F L 06/03/24 17:30 Temperature Source Temporal Artery Scan 06/03/24 17:30 Pulse Rate 106 H 06/03/24 17:30 Respiratory Rate 18 06/03/24 17:30 Blood Pressure 104/72 06/03/24 17:30 Blood Pressure Mean 82 06/03/24 17:30 Pulse Oximetry 90 06/03/24 17:30 Oxygen Delivery Method Room Air 06/03/24 17:30 Vital Signs Temperature 97.3 F L 06/03/24 17:30 Pulse Rate 106 H 06/03/24 17:30 Respiratory Rate 18 06/03/24 17:30 Blood Pressure 104/72 06/03/24 17:30 Pulse Oximetry 90 06/03/24 17:30 Oxygen Delivery Method Room Air 06/03/24 17:30 Temperature 97.3 F L 06/03/24 17:30 Pulse Rate 106 H 06/03/24 17:30 Respiratory Rate 18 06/03/24 17:30 Blood Pressure 104/72 06/03/24 17:30 Pulse Oximetry 90 06/03/24 17:30 Oxygen Delivery Method Room Air 06/03/24 17:30 Medications Administered Medications: Generic Name Dose Route Start Last Admin Trade Name Freq PRN Reason Stop Dose Admin Prednisone 40 mg 06/03/24 19:08 06/03/24 19:19 Prednisone 20 Mg Tablet PO 06/03/24 19:09 40 mg ONCE ONE Administration Medical Decision Making Lab Data Labs: Lab Results 06/03/24 Range/Units 18:22 WBC 9.55 (4.50-11.00) K/uL RBC 4.20 L (4.30-5.90) m/uL Hgb 11.2 L (13.5-17.5) gm/dL Hct 36.6 L (37.0-53.0) % MCV 87 (80-100) fL MCH 27 (26-34) pg MCHC 31 L (32-36) gm/dL RDW Coeff of Dia 20.7 H (11.5-15.5) % Plt Count 163 (140-440) K/uL Neut % (Auto) 86.6 H (42.0-72.0) % Lymph % (Auto) 5.5 L (20-44) % Prairie % (Auto) 6.4 (0.0-11.0) % Eos % (Auto) 0.7 (0.0-7.0) % Baso % (Auto) 0.3 (0.0-3.0) % Neut # (Auto) 8.30 H (1.7-7.0) K/uL Lymph # (Auto) 0.50 L (0.90-2.90) K/uL Prairie # (Auto) 0.60 (0.00-0.90) K/UL Eos # (Auto) 0.07 (0.00-0.50) K/uL Baso # (Auto) 0.03 (0.00-0.30) K/uL Abs Immat Gran (auto) 0.05 (0.00-0.30) K/uL Imm/Tot Granulo (auto) 0.5 % INR Cancelled Sodium 132 L (135-149) mmol/L Potassium 3.6 (3.6-5.1) mmol/L Chloride 96 (96-114) mmol/L Carbon Dioxide 22 (20-32) mmol/L Anion Gap 14 (7-15) mEq/L BUN 45 H (7-30) mg/dL Creatinine 2.6 H (0.5-1.5) mg/dL Estimated Creat Clear 24.85 Estimated GFR 25 ml/min Glucose 99 (60-115) mg/dL Uric Acid 12.7 H (2.2-8.4) mg/dL Calcium 8.5 (8.4-10.6) mg/dL C-Reactive Protein 0.9 (0.5-1.0) mg/dL Discharge Plan Discharge Clinical Impression: Gout, Bilateral edema of lower extremity Patient Disposition: Home, Self-Care Condition: Improved Instructions: Gout (ED) Additional Instructions: Prednisone 40 mg daily over the next 5 days, continue with Tylenol 1000 mg every 6 hours as needed for pain, hard sole shoe to be worn for support, if any increased redness or streaking involved, fevers, to fill the Duricef 500 mg daily over 7 days. Follow-up primary care provider over the next 7-10 days. Activity Level: No Restrictions Prescriptions: New prednisone 20 mg tablet 40 mg PO DAILY 5 Days Qty: 10 0RF No Action ondansetron 4 mg tablet,disintegrating 4 mg PO Q8H PRN albuterol sulfate 90 mcg/actuation HFA aerosol inhaler 2 puff INHALATION Q6H PRN acetaminophen 500 mg tablet 1,000 mg PO HS Rx Instructions: Take 1,000 mg by mouth once daily in the evening. Max acetaminophen dose: 4000mg in 24 hrs. amiodarone 200 mg tablet 200 mg PO DAILY torsemide 20 mg tablet 20 mg PO DAILY PRN Rx Instructions: Take one tablet by mouth as needed for weight gain of 3 lb in 1 day or 5 lb in 1 week sennosides 8.6 mg tablet 8.6 - 17.2 mg PO BID pramipexole 0.25 mg tablet 0.125 mg PO HS magnesium oxide 250 mg magnesium tablet 250 mg PO DAILY meclizine 25 mg tablet 25 mg PO TID PRN dobutamine 4 mg/mL See Rx Instructions .ROUTE .COMPLEX Rx Instructions: 2 MCG/KG/MIN (79.5 KG), 9.6 MG/HR, 2.4 ML/HR VIA CADD PUMP midodrine 2.5 mg tablet 2.5 mg PO TID Qty: 90 0RF warfarin 1 mg tablet 1 mg PO DAILY Qty: 90 0RF Protocol: Dose Management Condition: Friday Dose/Route: 1 mg Instruction: 1 x 1 mg tablet Condition: Friday Dose/Route: 0 mg Instruction: 0 tablets Condition: Friday Dose/Route: 1 mg Instruction: 1 x 1 mg tablet Condition: Friday Dose/Route: 1 mg Instruction: 1 x 1 mg tablet Condition: Dose/Route: 0 mg Instruction: 0 tablets Condition: Friday Dose/Route: 1 mg Instruction: 1 x 1 mg tablet Condition: Friday Dose/Route: 1 mg Instruction: 1 x 1 mg tablet Protocol Text: Adjustment Start Date: Friday05/28/24 INR Value: 2.57 INR Date: 05/22/24 Recheck Date: 06/11/24 Rx Instructions: Take 1 mg on Friday, Friday, Friday, Friday, Friday every week atorvastatin 40 mg tablet 40 mg PO DAILY Qty: 90 3RF pantoprazole 40 mg tablet,delayed release (DR/EC) 40 mg PO BID Qty: 60 11RF Follow Up/Referrals: Sadi Paul MD [Primary Care Provider] - Stand Alone [facility]
--- NOTE | 2024-06-03 17:49 | CRLHL7_ITS ---
For Patients: As a result of the Cures Act, medical imaging exams and procedure reports are released immediately into your electronic medical record. You may view this report before your referring provider. If you have questions, please contact your health care provider. INDICATION: Distal first metatarsal-phalangeal joint foot pain and big toe, recent fall and history gout, had a fall 2 days ago TECHNIQUE: Foot radiograph 3 views right COMPARISON: None FINDINGS: Bone: There are lucent lesions with peripheral sclerosis present within the medial cuneiform and navicular bones measuring up to 6 mm. These may represent nonaggressive bone lesion such as intraosseous ganglion or cyst. No acute osseous injuries or aggressive bone lesions are identified. Joint: The visualized hindfoot, midfoot, and forefoot joints are unremarkable in appearance. No significant ankle effusion is seen. Soft tissue: Mild soft tissue swelling is seen at the dorsal midfoot. No radiopaque foreign bodies are seen. IMPRESSION: 1. No acute osseous injuries or abnormalities are noted. Dictated by Michael Rebolledo MD @ 06/03/2024 6:19:17 PM Dictated by: Michael Rebolledo MD @ 06/03/2024 18:19:20 (Electronically Signed)
--- OUTSIDE RECORDS SUMMARY | 2024-06-03 18:05 | XMS_ITS | Clinical Summary ---
Author Organization [facility] Address [address] [place] [id number] Care Team Providers Care Adapted Physical Education Teacher Name Role Phone [facility] [place] Unavailable Sadi Paul MD Primary Care Provider [facility], [place] Unavailable [phone] Allergies Active Allergy Reactions Criticality Noted Date [...] meals. 90 Tablet 04/21/19 25 2:46 PM INTERACTIVE ART DIRECTOR 025 Active pramipexole (MIRAPEX) 0.25 mg tabletIndications:Restl ess leg Take one-half Tablet (0.125 mg) by mouth at bedtime. 30 Tablet 04/21/19 25 2:46 PM INTERACTIVE ART DIRECTOR 025 Active sennosides (SENNA) 8.6 mg tabletIndications:Other constipation Take 1 to 2 Tablets (8.6-17.2 mg) by mouth two times daily. 60 Tablet 04/21/19 25 2:46 PM INTERACTIVE ART DIRECTOR 025 Active warfarin (COUMADIN) 1 mg tabletIndications:Atria l fibrillation with rapid ventricular response (HC) Take 1 Tablet (1 mg) by mouth once daily. Take 1mg daily. INR check on Sunday 04/23. Further dosing instructions pending INR value at that time. 30 Tablet 04/21/19 25 2:46 PM INTERACTIVE ART DIRECTOR 025 Active midodrine (PROAMATINE) 2.5 mg tabletIndications:Hypot ension, unspecified hypotension type Take 1 tablet (2.5mg) by mouth three times daily (at 8AM, 12PM, and 4PM) 90 Tablet 04/21/19 2:46 PM INTERACTIVE ART DIRECTOR 025 Active amiodarone (CORDARONE) 200 mg tabletIndications:Atria l fibrillation with rapid ventricular response (HC) Take 1 tablet (200 mg) by mouth twice daily. Then on 05/02/24 decrease to 200 mg once daily 90 Tablet 1 04/21/19 25 2:46 PM INTERACTIVE ART DIRECTOR 025 Active torsemide (DEMADEX) 20 mg tabletIndications:Acute on chronic systolic and diastolic heart failure, NYHA class 3 (HC) Take one tablet by mouth as needed for weight gain of 3 lb in 1 day or 5 lb in 1 week 30 Tablet 2 04/21/19 5:30 PM INTERACTIVE ART DIRECTOR 025 Active atorvastatin (LIPITOR) 40 mg tabletIndications:Pure hypercholesterolemia Take 1 Tablet (40 mg) by mouth once daily. 30 Tablet 3 04/21/19 5:30 PM INTERACTIVE ART DIRECTOR 025 Active WalkerIndications:CHF (congestive heart failure), NYHA [...] 25 Overview (05/26/2024): HOSPICE CONSULT ONLY. /CHRISTIANO [facility] Physician Note Verification of Hospice Diagnosis [...] pulmonary emphysema. He was hospitalized 04/06- at [facility], with atrial fibrillation rapid ventricular response and [...] followed by Home Care. Braxton Alcala MD [facility] Vasyl Alcala MD .................... 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 [address] Joceline Edouard SET UP OPERATOR - HOME VISIT 06/03/19 25 9:30 AM CDT Home Care Visit [facility] [address] [place] [phone] Rowena Pulido OT OT - HOME VISIT 06/02/19 25 8:30 AM CDT Home Care Visit [facility] [address] [place] [phone] Valentina Riley, RN SN - HOME VISIT 06/02/19 25 Orders Only [facility] [address] [place] [address] [place] [address] Lauro Kendall MD Lab 06/02/19 25 Orders Only [facility] [address] [facility] [place] [address] Lauro Kendall MD Lab (Home care) 06/01/19 25 2:30 PM CDT Home Care Visit [facility] [address] [place] [address] Joceline Edouard SET UP OPERATOR - HOME VISIT 05/29/19 25 1:00 PM CDT Home Care Visit [facility] [address] [place] [phone] Valentina Riley, RN SN - LONG VISIT (>90 MINUTES) 05/29/19 25 10:30 AM CDT Home Care Visit [facility] [address] [place] [phone] Nicolas Sanz, PT PT - HOME VISIT 05/29/19 25 Home Care Visit [facility] [address] [place] [phone] Nicolas Sanz, PT CARE COORDINATION 05/29/19 Travel 05/28/19 2:15 PM CDT Home Care Visit [facility] [address] [place] [address], [place] [address] Joceline Edouard SET UP OPERATOR - HOME VISIT 05/28/19 11:30 AM CDT Home Care Visit [facility] [address] [place] [address], [place] [address] Rowena Pulido, SIRIA OT - REASSESSMENT 05/27/19 9:30 AM CDT Home Care Visit [facility] [address] [place] [address], [place] [address] Amparo Hensley, ANALYSIS ENGINEER INFORMATIONAL VISIT 05/27/19 Travel 05/26/19 Home Care Visit [facility] [address] [place] [address], [place] [address] Tiffany Fang, OT PARIKH SUPERVISION 05/26/19 Transcribe Orders [facility] [address] [place] [address], [place] [phone] [facility] [place] 05/25/19 2:30 PM CDT Home Care Visit [facility] [address] [place] [address], [place] [phone] Joceline Edouard SET UP OPERATOR - HOME VISIT 05/22/19 1:15 PM CDT Home Care Visit [facility] [address] [place] [address], [place] [phone] Nicolas Sanz, PT PT - REASSESSMENT 05/22/19 11:30 AM CDT Home Care Visit [facility] [address] [place] [address], [place] [phone] Valentina Riley, AMELIA SN - LONG VISIT (>90 MINUTES) 05/22/19 Home Care Visit [facility] [address] [place] [address], [place] [phone] Nereida Dominguez LISW MOTOCROSS RACER - INITIAL ASSESSMENT 05/22/19 Anticoagulation (warfarin) [address] [address] Shana Lozano, DO Anticoagulation 05/21/19 25 2:45 PM CDT Home Care Visit [facility] [address] [place] [phone] Joceline Edouard SET UP OPERATOR - HOME VISIT 05/20/19 25 Home Care Visit [facility] [address] [place] [phone] Valentina Riley, RN CARE COORDINATION 05/20/19 25 Home Care Visit [facility] [address] [place] [phone] Tiffany Fang, OT PARIKH SUPERVISION 05/19/19 25 Home Care Visit [facility] [address] [place] [phone] Edis Camargo, OPEN SOURCE DEVELOPER CARE COORDINATION 05/18/19 25 Home Care Visit [facility] [address] [place] [phone] Valentina Riley, FIREFIGHTER NOTE 05/15/19 25 Travel 05/15/19 25 Home Care Visit [facility] [address] [place] [phone] Monisha Yo, PARIKH CARE COORDINATION 05/14/19 25 4:00 PM CDT Home Care Visit [facility] [address] [place] [phone] Joceline Edouard SET UP OPERATOR - HOME VISIT 05/14/19 25 1:00 PM CDT Home Care Visit [facility] [address] [place] [phone] Valentina Riley, AMELIA SN - LONG VISIT (>90 MINUTES) 05/14/19 25 Telephone [facility] [address] [address] Valentina Riley, metal framer 05/12/19 25 10:30 AM CDT Home Care Visit [facility] [address] [place] [phone] Nicolas Sanz, PT PT - HOME VISIT 05/12/19 Home Care Visit [facility] [address] [place] [address], [place] [address] Edis Camargo, OPEN SOURCE DEVELOPER CARE COORDINATION 05/12/19 Travel 05/11/19 3:00 PM CDT Home Care Visit [facility] [address] [place] [phone] Joceline Edouard SET UP OPERATOR - HOME VISIT 05/11/19 11:00 AM CDT Home Care Visit [facility] [address] [place] [phone] Valentina Riley, AMELIA SN - HOME VISIT 05/10/19 Nurse Triage [facility] [address] [address] Shana Lozano, DO Home Care; Diarrhea 05/08/19 4:00 PM INTERACTIVE ART DIRECTOR Home Care Visit [facility] [address] [place] [phone] Joceline Edouard SET UP OPERATOR - HOME VISIT 05/08/19 10:30 AM INTERACTIVE ART DIRECTOR Home Care Visit [facility] [address] [place] [phone] Nicolas Sanz, PT PT - HOME VISIT 05/07/19 1:30 PM INTERACTIVE ART DIRECTOR Home Care Visit [facility] [address] [place] [phone] Valentina Riley, RN SN - LONG VISIT (>90 MINUTES) 05/07/19 Telephone [facility] [address] [address] Valentina Riley, metal framer 05/05/19 1:30 PM INTERACTIVE ART DIRECTOR Home Care Visit [facility] [address] [place] [phone] Tiffany Fang, OT OT - HOME VISIT 05/05/19 10:30 AM INTERACTIVE ART DIRECTOR Home Care Visit [facility] [address] [place] [address] Nicolas Sanz, PT PT - HOME VISIT 05/05/19 9:30 AM INTERACTIVE ART DIRECTOR Home Care Visit [facility] [address] [place] [address] Joceline Edouard SET UP OPERATOR - HOME VISIT 05/05/19 Travel 05/04/19 1:00 PM INTERACTIVE ART DIRECTOR Home Care Visit [facility] [address] [place] [address] Valentina Riley, RN SN - LONG VISIT (>90 MINUTES) 05/04/19 8:30 AM INTERACTIVE ART DIRECTOR Office Visit [facility] [id number] [place] [address] [address] [place] [address] Lauro Kendall MD Follow Up (POST HOSPITAL FOLLOW UP. LABS DONE PRIOR AT HOME HEALTH CARE./PT states feeling OK/no cardiac symptoms today /Establish care ) 05/04/19 Travel 04/30/19 2:30 PM INTERACTIVE ART DIRECTOR Home Care Visit [facility] [address] [place] [address] Nicolas Sanz, PT PT - HOME VISIT 04/30/[address] [address] Shana Lozano, DO Weight (Weight gain) 04/30/19 Travel 04/29/19 12:30 PM INTERACTIVE ART DIRECTOR Home Care Visit [facility] [address] [place] [address] Valentina Riley, RN SN - LONG VISIT (>90 MINUTES) 04/29/19 Home Care Visit [facility] [address] [place] [address] Nicolas Sanz, PT CARE COORDINATION 04/28/19 3:00 PM INTERACTIVE ART DIRECTOR Home Care Visit [facility] [address] [place] [phone] Nicolas Sanz, PT PT - INITIAL ASSESSMENT 04/28/19 9:00 AM INTERACTIVE ART DIRECTOR Home Care Visit [facility] [address] [place] [address] Anabella Rico, SLIDE MACHINE TENDER SLIDE MACHINE TENDER - HOME VISIT 04/28/[address] [address] Shana Lozano, DO Questions (Verbal orders) 04/28/19 Travel 04/27/19 1:00 PM INTERACTIVE ART DIRECTOR Home Care Visit [facility] [address] [place] [address] Tiffany Fang, OT OT - INITIAL ASSESSMENT 04/27/19 11:30 AM INTERACTIVE ART DIRECTOR Anticoagulation (warfarin) [address] [address] Anticoagulation 04/27/19 9:40 AM INTERACTIVE ART DIRECTOR Office Visit [address] [address] Shana Lozano DO Hospital F/U (04/06/2024-04/21/2024 Afib with RVR) 04/27/19 Travel 04/26/[address] [address] Ignacio Willett MD Care Coordination (EP called and spoke with patient who reports that he moved in with his daughter which is 100 [address] from [facility]. EP confirmed with patient that he would be discharged from CR at [facility]. Pt confirmed he would check out places near for CR as needed. ) 04/26/19 Orders Only [address] [address] Shana Lozano, DO <No scans attached> 04/26/19 Orders Only [address] [address] Shana Lozano, DO <No scans attached> 02/23/20 25 1:00 PM INTERACTIVE ART DIRECTOR Home Care Visit [facility] [address] [place] [address] Staci Lara, AMELIA SN - HOME VISIT 04/23/19 25 1:45 PM INTERACTIVE ART DIRECTOR Home Care Visit [facility] [address] [place] [address] Joceline Edouard SET UP OPERATOR - HOME VISIT 04/23/19 25 1:00 PM INTERACTIVE ART DIRECTOR Home Care Visit [facility] [address] [place] [address] Valentina Riley, AMELIA SN - LONG VISIT (>90 MINUTES) 04/23/19 9:00 AM INTERACTIVE ART DIRECTOR Anticoagulation (warfarin) [facility] [address] [place] [address] Anticoagulation 04/23/19 25 Orders Only [facility] [address] [place] [address] Shana Lozano, DO Lab 04/23/19 25 Orders Only [facility] [address] [place] [phone] Shana Lozano DO Lab (Home care) 04/23/19 25 Orders Only [facility] [address] [place] [address] [place] [address] Abi Valdovinos, FRANKY <No scans attached> 04/23/19 25 Travel 04/22/19 25 1:00 PM INTERACTIVE ART DIRECTOR Home Care Visit [facility] [address] [place] [address] Valentina Riley, AMELIA SN IV - START OF CARE 04/22/19 Plan of Care Documentation [facility] [address] [place] [phone] 04/22/19 25 Telephone [facility] [address] [place] [phone] Valentina Riley, metal framer 04/22/19 25 Telephone [facility] [address] [place] [address] Shana Lozano, DO Outside Order (WALKER / PORTABLE URINAL ) 04/22/19 25 Home Care Visit [facility] [address] [place] [address] Valentina Riley, RN CARE COORDINATION 04/22/19 25 Telephone [facility] [address] [place] [address] Ignacio Willett MD Care Coordination (EP attempted phone contact with patient to touch base regarding cardiac rehab plan. No answer and VM is full. EP to follow-up as needed. ) 04/21/19 25 Telephone [facility] [address] [place] [address] Shana Lozano, DO Anticoagulation 04/19/19 25 Telephone [facility] [address] [place] [address] Shana Lozano, Questions (Home care orders ) 04/17/19 25 Refill [facility] [address] [place] [address] Ignacio iWllett MD Refill Request (Isosorbide Mononitrate) 04/12/19 25 10:26 AM INTERACTIVE ART DIRECTOR Anesthesia Event [facility] [address] [place] [address] Gerardo Garza MD Schlatter, Charles Patrick, CATERING ATTENDANT 04/08/19 25 12:21 PM INTERACTIVE ART DIRECTOR Anesthesia Event [facility] [address] [place] [address] Leonardo Campbell MD Reiter, Kyle, CATERING ATTENDANT 04/08/19 25 11:26 AM INTERACTIVE ART DIRECTOR - 04/08/19 25 12:12 PM INTERACTIVE ART DIRECTOR Surgery [facility] [address] [place] [address] Chepe Francis MD ESOPHAGOGASTRODUODENOSCOPY WITH GASTRIC BIOPSY 04/06/19 25 11:21 PM INTERACTIVE ART DIRECTOR - 04/21/19 25 5:55 PM INTERACTIVE ART DIRECTOR Hospital Encounter [facility] [address] [place] [address] [facility], [facility], MD Ulysses Boles, MD [...] Discharge Disposition: Home Health 04/06/19 2:41 PM INTERACTIVE ART DIRECTOR - 04/06/19 10:17 PM INTERACTIVE ART DIRECTOR Emergency [address] [address] Charly Monroe MD Binder, Jacob A, MD Atrial fibrillation, unspecified type (HC) (Primary Dx); Hypotension, unspecified hypotension type; Lightheadedness; DAVID (acute kidney injury) Discharge Disposition: Short Term/[facility]PS Hosp 04/06/19 25 1:56 PM INTERACTIVE ART DIRECTOR - 04/06/19 25 2:40 PM INTERACTIVE ART DIRECTOR Hospital Encounter [address] [address] Ignacio Willett MD 04/06/19 Telephone [facility] [address] [place] [address] Lukasz Bright MD 04/06/19 25 Travel 04/05/19 Telephone [facility] [address] [place] [address] Ignacio Willett MD Atrial Fibrillation 03/30/19 25 1:47 PM INTERACTIVE ART DIRECTOR - 03/30/19 25 11:59 PM INTERACTIVE ART DIRECTOR Hospital Encounter [address] [address] Ignacio Willett MD 03/30/19 25 Travel 03/24/19 25 1:00 PM INTERACTIVE ART DIRECTOR - 03/24/19 25 11:59 PM INTERACTIVE ART DIRECTOR Hospital Encounter [facility] [address] [facility] [place] [address] Ignacio Willett MD 03/24/19 25 Travel 03/22/19 25 1:00 PM INTERACTIVE ART DIRECTOR - 03/22/19 25 11:59 PM INTERACTIVE ART DIRECTOR Hospital Encounter [facility] [address] [place] [address] Ignacio Willett MD 03/22/19 25 Travel 03/15/19 25 12:50 PM INTERACTIVE ART DIRECTOR - 03/15/19 25 11:59 PM INTERACTIVE ART DIRECTOR Hospital Encounter [facility] [address] [place] [address] Ignacio Willett MD 03/15/19 25 Travel 03/10/19 25 12:50 PM INTERACTIVE ART DIRECTOR - 03/10/19 25 11:59 PM INTERACTIVE ART DIRECTOR Hospital Encounter [facility] [address] [place] [address] Ignacio Willett MD 03/10/19 25 Travel 03/08/19 25 1:00 PM INTERACTIVE ART DIRECTOR - 03/08/19 25 11:59 PM INTERACTIVE ART DIRECTOR Hospital Encounter [address] [address] Ignacio Willett MD 03/08/19 25 Travel from Last 3 Months Immunizations Immunization Administration Dates Next Due COVID-19 VACCINE COMIRNATY (Isentio-BIONTFlocations 30MCG/0.3ML) 12YO+ PFS 12/18/2023 COVID-19 VACCINE SPIKEVAX [...] on file Legal Sex Male 5:26 PM INTERACTIVE ART DIRECTOR Gender Identity Not on file Sexual Orientation [...] 175.3 cm (5' 9) 05/03/2024 8:40 AM INTERACTIVE ART DIRECTOR Body Mass Index 25.7 05/03/2024 8:40 AM INTERACTIVE ART DIRECTOR Plan of Treatment Upcoming Encounters Date Type Department Care Team (Late st Contact Info) Description 06/04/2024 9:00 AM CDT Home Care Visit [address] [phone] Nicolas Sanz, PT [address] [place], [place] [phone] 06/04/2024 1:00 PM CDT Home Care Visit [facility] [phone] [place] [phone] Valentina Riley RN 06/07/2024 11:00 AM CDT Home Care Visit [address] [phone] Valentina Riley, AMELIA 06/08/2024 4:00 AM CDT Home Care Visit [facility] [address] [place] [address] Joceline Edouard 06/08/2024 8:30 AM CDT Office Visit [facility] [address] [facility] [address] [place] [address] Lauro Kendall MD [address] [facility] [address] [place] [address] 06/10/2024 4:00 AM CDT Home Care Visit [facility] [phone] [place] [phone] Joceline Edouard 06/10/2024 5:00 AM CDT Home Care Visit [facility] [phone] [place] [phone] Monisha Yo, PARIKH [address] [place] [address] 06/11/2024 3:00 AM CDT Home Care Visit [facility] [address] [place] [phone] Nicolas Sanz, PT [address] [place] [address] 06/11/2024 12:00 PM CDT Home Care Visit [facility] [phone] [place] [phone] Valentina Riley, AMELIA 06/14/2024 1:00 PM CDT Home Care Visit [address] [phone] Valentina Riley, RN 06/15/2024 4:00 AM CDT Home Care Visit [address] [address] Joceline Edouard 06/16/2024 1:00 PM CDT Home Care Visit [facility] [address] [place] [address] Valentina Riley, RN 06/17/2024 4:00 AM CDT Home Care Visit [facility] [address] [place] [address] Jax Edouardroxanna Griffith 06/17/2024 5:00 AM CDT Home Care Visit [facility] [address] [place] [address], [place] [phone] Annalisa Anselmocurt, OT [address] [place] [address] 06/18/2024 3:00 AM CDT Home Care Visit [facility] [address] [place] [phone] Nicolas Sanz, PT [address] [place] [address] 06/18/2024 1:00 PM CDT Appointment [facility] [address] [place] [phone] Valentina Riley, RN Health Maintenance Due Date [...] failure (HC) PROTIME-INR Routine 04/27/2024 10:26 AM INTERACTIVE ART DIRECTOR Ischemic cardiomyopathy PRO-BNP Routine 04/27/2024 10:26 AM INTERACTIVE ART DIRECTOR Acute systolic heart failure (HC) BASIC METABOLIC PANEL Routine 04/27/2024 10:26 AM INTERACTIVE ART DIRECTOR Acute systolic heart failure (HC) PROTIME-INR Routine 04/23/2024 1:40 PM INTERACTIVE ART DIRECTOR Atrial fibrillation with rapid ventricular response (HC) BASIC METABOLIC PANEL Early AM 04/21/2024 6:15 AM INTERACTIVE ART DIRECTOR HEPATIC FUNCTION PANEL Early AM 6:15 AM INTERACTIVE ART DIRECTOR PROTIME-INR Early AM 04/21/2024 6:15 AM INTERACTIVE ART DIRECTOR SCAN-CARDIAC STRIP 04/20/2024 11:03 PM INTERACTIVE ART DIRECTOR SCAN-CARDIAC STRIP 04/20/2024 7:32 PM INTERACTIVE ART DIRECTOR CBC W PLT NO DIFF Early AM 04/20/2024 7:04 AM INTERACTIVE ART DIRECTOR MAGNESIUM Early AM 04/20/2024 7:04 AM INTERACTIVE ART DIRECTOR BASIC METABOLIC PANEL Early AM 04/20/2024 7:04 AM INTERACTIVE ART DIRECTOR HEPATIC FUNCTION PANEL Early AM 7:04 AM INTERACTIVE ART DIRECTOR PROTIME-INR Early AM 04/20/2024 7:04 AM INTERACTIVE ART DIRECTOR O2 SATURATION,MEASURED Early AM 6:22 AM INTERACTIVE ART DIRECTOR SCAN-CARDIAC STRIP 04/19/2024 7:23 PM INTERACTIVE ART DIRECTOR SCAN-CARDIAC STRIP 04/19/2024 1:45 PM INTERACTIVE ART DIRECTOR MAGNESIUM Early AM 04/19/2024 6:57 AM INTERACTIVE ART DIRECTOR BASIC METABOLIC PANEL Early AM 04/19/2024 6:57 AM INTERACTIVE ART DIRECTOR HEMOGLOBIN Early AM 04/19/2024 6:57 AM INTERACTIVE ART DIRECTOR HEPATIC FUNCTION PANEL Early AM 5 6:57 AM INTERACTIVE ART DIRECTOR PROTIME-INR Early AM 04/19/2024 6:57 AM INTERACTIVE ART DIRECTOR O2 SATURATION,MEASURED Early AM 5 6:11 AM INTERACTIVE ART DIRECTOR SCAN-CARDIAC STRIP 04/18/2024 10:04 PM INTERACTIVE ART DIRECTOR SCAN-CARDIAC STRIP 04/18/2024 5:43 PM INTERACTIVE ART DIRECTOR MAGNESIUM Timed 04/18/2024 4:33 PM INTERACTIVE ART DIRECTOR POTASSIUM Timed 04/18/2024 12:45 PM INTERACTIVE ART DIRECTOR O2 SATURATION,MEASURED Early AM 5 8:11 AM INTERACTIVE ART DIRECTOR SCAN-CARDIAC STRIP 04/18/2024 7:46 AM INTERACTIVE ART DIRECTOR MAGNESIUM Early AM 04/18/2024 7:07 AM INTERACTIVE ART DIRECTOR BASIC METABOLIC PANEL Early AM 04/18/2024 7:07 AM INTERACTIVE ART DIRECTOR HEPATIC FUNCTION PANEL Early AM 7:07 AM INTERACTIVE ART DIRECTOR PROTIME-INR Early AM 04/18/2024 7:07 AM INTERACTIVE ART DIRECTOR SCAN-CARDIAC STRIP 04/17/2024 11:49 PM INTERACTIVE ART DIRECTOR SCAN-CARDIAC STRIP 04/17/2024 9:12 PM INTERACTIVE ART DIRECTOR SCAN-CARDIAC STRIP 04/17/2024 7:41 AM INTERACTIVE ART DIRECTOR MAGNESIUM RUSH 04/17/2024 7:26 AM INTERACTIVE ART DIRECTOR BASIC METABOLIC PANEL Early AM 04/17/2024 7:26 AM INTERACTIVE ART DIRECTOR HEPATIC FUNCTION PANEL Early AM 7:26 AM INTERACTIVE ART DIRECTOR PROTIME-INR Early AM 04/17/2024 7:26 AM INTERACTIVE ART DIRECTOR O2 SATURATION,MEASURED Early AM 6:35 AM INTERACTIVE ART DIRECTOR SCAN-CARDIAC STRIP 04/16/2024 11:25 PM INTERACTIVE ART DIRECTOR POTASSIUM Timed 04/16/2024 5:20 PM INTERACTIVE ART DIRECTOR O2 SATURATION,MEASURED Timed 3:06 PM INTERACTIVE ART DIRECTOR ALK PHOSPHATASE Today 04/16/2024 10:19 AM INTERACTIVE ART DIRECTOR BILIRUBIN DIRECT Today 04/16/2024 10:19 AM INTERACTIVE ART DIRECTOR ALT (SGPT) Today 04/16/2024 10:19 AM INTERACTIVE ART DIRECTOR AST (SGOT) Today 04/16/2024 10:19 AM INTERACTIVE ART DIRECTOR POTASSIUM Early AM 04/16/2024 10:19 AM INTERACTIVE ART DIRECTOR SCAN-CARDIAC STRIP 04/16/2024 8:23 AM INTERACTIVE ART DIRECTOR HEMOGLOBIN Early AM 04/16/2024 8:09 AM INTERACTIVE ART DIRECTOR HEPATIC FUNCTION PANEL Early AM 8:09 AM INTERACTIVE ART DIRECTOR CREATININE Early AM 04/16/2024 8:09 AM INTERACTIVE ART DIRECTOR SODIUM Early AM 04/16/2024 8:09 AM INTERACTIVE ART DIRECTOR MAGNESIUM Early AM 04/16/2024 8:09 AM INTERACTIVE ART DIRECTOR O2 SATURATION,MEASURED Early AM 6:31 AM INTERACTIVE ART DIRECTOR SCAN-CARDIAC STRIP 04/16/2024 1:03 AM INTERACTIVE ART DIRECTOR SCAN-CARDIAC STRIP 04/15/2024 8:37 PM INTERACTIVE ART DIRECTOR O2 SATURATION,MEASURED Today 6:58 PM INTERACTIVE ART DIRECTOR POTASSIUM Timed 04/15/2024 5:26 PM INTERACTIVE ART DIRECTOR EKG 12 LEAD RUSH 04/15/2024 12:31 PM INTERACTIVE ART DIRECTOR PROTIME-INR Early AM 04/15/2024 11:55 AM INTERACTIVE ART DIRECTOR POTASSIUM Timed 04/15/2024 11:55 AM INTERACTIVE ART DIRECTOR O2 SATURATION,MEASURED RUSH 8:07 AM INTERACTIVE ART DIRECTOR GLUCOSE METER Timed 04/15/2024 7:49 AM INTERACTIVE ART DIRECTOR SCAN-CARDIAC STRIP 04/15/2024 7:26 AM INTERACTIVE ART DIRECTOR HEMOGLOBIN Early AM 04/15/2024 6:38 AM INTERACTIVE ART DIRECTOR BASIC METABOLIC PANEL Early AM 04/15/2024 6:38 AM INTERACTIVE ART DIRECTOR MAGNESIUM Early AM 04/15/2024 6:38 AM INTERACTIVE ART DIRECTOR HEPATIC FUNCTION PANEL Early AM 6:38 AM INTERACTIVE ART DIRECTOR SCAN-CARDIAC STRIP 04/15/2024 3:06 AM INTERACTIVE ART DIRECTOR SCAN-CARDIAC STRIP 04/14/2024 9:43 PM INTERACTIVE ART DIRECTOR GLUCOSE METER Timed 04/14/2024 9:05 PM INTERACTIVE ART DIRECTOR GLUCOSE METER Timed 04/14/2024 4:15 PM INTERACTIVE ART DIRECTOR SCAN-CARDIAC STRIP 04/14/2024 3:27 PM INTERACTIVE ART DIRECTOR ICD ANALYSIS DUAL WITHOUT REPROGRAM Routine 04/14/2024 3:13 PM INTERACTIVE ART DIRECTOR EKG 12 LEAD RUSH 04/14/2024 1:25 PM INTERACTIVE ART DIRECTOR GLUCOSE METER Timed 04/14/2024 12:04 PM INTERACTIVE ART DIRECTOR POTASSIUM Timed 04/14/2024 11:49 AM INTERACTIVE ART DIRECTOR GLUCOSE METER Timed 04/14/2024 7:53 AM INTERACTIVE ART DIRECTOR SCAN-CARDIAC STRIP 04/14/2024 7:21 AM INTERACTIVE ART DIRECTOR URINALYSIS MICROSCOPIC Timed 6:29 AM INTERACTIVE ART DIRECTOR BASIC METABOLIC PANEL Early AM 04/14/2024 6:29 AM INTERACTIVE ART DIRECTOR MAGNESIUM Early AM 04/14/2024 6:29 AM INTERACTIVE ART DIRECTOR HEPATIC FUNCTION PANEL Early AM 6:29 AM INTERACTIVE ART DIRECTOR O2 SATURATION,MEASURED Timed 6:29 AM INTERACTIVE ART DIRECTOR UA W/ SEDIMENT EXAM REFLEXED PER CRITERIA Today 04/14/2024 6:29 AM INTERACTIVE ART DIRECTOR GLUCOSE METER Timed 04/13/2024 9:23 PM INTERACTIVE ART DIRECTOR SCAN-CARDIAC STRIP 04/13/2024 8:03 PM INTERACTIVE ART DIRECTOR PICC LINE Routine 04/13/2024 7:28 PM INTERACTIVE ART DIRECTOR INSERT PICC LINE Routine 04/13/2024 7:20 PM INTERACTIVE ART DIRECTOR GLUCOSE METER Timed 04/13/2024 5:07 PM INTERACTIVE ART DIRECTOR SCAN-CARDIAC STRIP 04/13/2024 3:12 PM INTERACTIVE ART DIRECTOR ICD ANALYSIS DUAL WITHOUT REPROGRAM Routine 04/13/2024 1:57 PM INTERACTIVE ART DIRECTOR EKG 12 LEAD Today 04/13/2024 8:25 AM INTERACTIVE ART DIRECTOR GLUCOSE METER Timed 04/13/2024 7:41 AM INTERACTIVE ART DIRECTOR SCAN-CARDIAC STRIP 04/13/2024 7:35 AM INTERACTIVE ART DIRECTOR HEPATIC FUNCTION PANEL Early AM 6:43 AM INTERACTIVE ART DIRECTOR HEMOGLOBIN Early AM 04/13/2024 6:43 AM INTERACTIVE ART DIRECTOR BASIC METABOLIC PANEL Early AM 04/13/2024 6:43 AM INTERACTIVE ART DIRECTOR GLUCOSE METER Timed 04/12/2024 9:16 PM INTERACTIVE ART DIRECTOR GLUCOSE METER Timed 04/12/2024 6:39 PM INTERACTIVE ART DIRECTOR COMPREHENSIVE BLOOD GAS MIXE D VENOUS Timed 04/12/2024 4:48 PM INTERACTIVE ART DIRECTOR CVL OTHER PROCEDURE Routine 04/12/2024 4:09 PM INTERACTIVE ART DIRECTOR Cardiovascular symptoms SCAN-CARDIAC STRIP 04/12/2024 3:27 PM INTERACTIVE ART DIRECTOR US RENAL AND BLADDER COMPLETE Routine 2:51 PM INTERACTIVE ART DIRECTOR GLUCOSE METER Timed 04/12/2024 11:55 AM INTERACTIVE ART DIRECTOR ECHO NOEL WO CONTRAST W COLOR W LTD DOPPLER Routine 04/12/2024 10:52 AM INTERACTIVE ART DIRECTOR EKG 12 LEAD Post Op 04/12/2024 10:49 AM INTERACTIVE ART DIRECTOR EP OTHER PROCEDURE Routine 04/12/2024 10:48 AM INTERACTIVE ART DIRECTOR GLUCOSE METER Timed 04/12/2024 7:30 AM INTERACTIVE ART DIRECTOR HEPATIC FUNCTION PANEL RUSH 6:31 AM INTERACTIVE ART DIRECTOR BASIC METABOLIC PANEL Early AM 04/12/2024 6:31 AM INTERACTIVE ART DIRECTOR MAGNESIUM Early AM 04/12/2024 6:31 AM INTERACTIVE ART DIRECTOR SCAN-CARDIAC STRIP 04/12/2024 3:46 AM INTERACTIVE ART DIRECTOR SCAN-OPERATIVE/PROCEDURE REPORT 04/12/2024 12:00 AM INTERACTIVE ART DIRECTOR GLUCOSE METER Timed 04/11/2024 9:47 PM INTERACTIVE ART DIRECTOR SCAN-CARDIAC STRIP 04/11/2024 8:21 PM INTERACTIVE ART DIRECTOR GLUCOSE METER Timed 04/11/2024 5:24 PM INTERACTIVE ART DIRECTOR SCAN-CARDIAC STRIP 04/11/2024 4:18 PM INTERACTIVE ART DIRECTOR GLUCOSE METER Timed 04/11/2024 11:31 AM INTERACTIVE ART DIRECTOR HEMOGLOBIN Today 04/11/2024 10:12 AM INTERACTIVE ART DIRECTOR MAGNESIUM RUSH 04/11/2024 10:12 AM INTERACTIVE ART DIRECTOR BASIC METABOLIC PANEL Early AM 04/11/2024 10:12 AM INTERACTIVE ART DIRECTOR SCAN-CARDIAC STRIP 04/11/2024 7:48 AM INTERACTIVE ART DIRECTOR GLUCOSE METER Timed 04/11/2024 7:44 AM INTERACTIVE ART DIRECTOR GLUCOSE METER Timed 04/10/2024 9:22 PM INTERACTIVE ART DIRECTOR POTASSIUM Timed 04/10/2024 6:20 PM INTERACTIVE ART DIRECTOR GLUCOSE METER Timed 04/10/2024 5:09 PM INTERACTIVE ART DIRECTOR SCAN-CARDIAC STRIP 04/10/2024 4:04 PM INTERACTIVE ART DIRECTOR POTASSIUM Timed 04/10/2024 1:24 PM INTERACTIVE ART DIRECTOR GLUCOSE METER Timed 04/10/2024 12:37 PM INTERACTIVE ART DIRECTOR SCAN-CARDIAC STRIP 04/10/2024 10:29 AM INTERACTIVE ART DIRECTOR GLUCOSE METER Timed 04/10/2024 8:26 AM INTERACTIVE ART DIRECTOR MAGNESIUM RUSH 04/10/2024 8:09 AM INTERACTIVE ART DIRECTOR BASIC METABOLIC PANEL Early AM 04/10/2024 8:09 AM INTERACTIVE ART DIRECTOR SCAN-CARDIAC STRIP 04/10/2024 5:01 AM INTERACTIVE ART DIRECTOR GLUCOSE METER Timed 04/09/2024 9:07 PM INTERACTIVE ART DIRECTOR POTASSIUM Timed 04/09/2024 7:56 PM INTERACTIVE ART DIRECTOR SCAN-CARDIAC STRIP 04/09/2024 7:40 PM INTERACTIVE ART DIRECTOR GLUCOSE METER Timed 04/09/2024 5:26 PM INTERACTIVE ART DIRECTOR SCAN-CARDIAC STRIP 04/09/2024 3:40 PM INTERACTIVE ART DIRECTOR GLUCOSE METER Timed 04/09/2024 8:14 AM INTERACTIVE ART DIRECTOR BASIC METABOLIC PANEL Early AM 04/09/2024 8:10 AM INTERACTIVE ART DIRECTOR GLUCOSE METER Timed 04/08/2024 9:15 PM INTERACTIVE ART DIRECTOR GLUCOSE METER Timed 04/08/2024 4:52 PM INTERACTIVE ART DIRECTOR POTASSIUM Timed 04/08/2024 2:45 PM INTERACTIVE ART DIRECTOR GLUCOSE METER Timed 04/08/2024 1:00 PM INTERACTIVE ART DIRECTOR PATH TISSUE EXAM Today 04/08/2024 12:39 PM INTERACTIVE ART DIRECTOR ESOPHAGOGASTRODUODENOSCOPY W ITH BIOPSY 04/08/2024 12:13 PM INTERACTIVE ART DIRECTOR melena GLUCOSE METER Timed 04/08/2024 11:09 AM INTERACTIVE ART DIRECTOR ENDOSCOPY 04/08/2024 9:49 AM INTERACTIVE ART DIRECTOR GLUCOSE METER Timed 04/08/2024 8:00 AM INTERACTIVE ART DIRECTOR EXTRA TUBE BLUE Today 04/08/2024 6:45 AM INTERACTIVE ART DIRECTOR EXTRA TUBE LAVENDER Today 04/08/2024 6:45 AM INTERACTIVE ART DIRECTOR PRO-BNP Early AM 04/08/2024 6:45 AM INTERACTIVE ART DIRECTOR BASIC METABOLIC PANEL Early AM 04/08/2024 6:45 AM INTERACTIVE ART DIRECTOR SCAN-CARDIAC STRIP 04/07/2024 11:52 PM INTERACTIVE ART DIRECTOR GLUCOSE METER Timed 04/07/2024 10:19 PM INTERACTIVE ART DIRECTOR GLUCOSE METER Timed 04/07/2024 7:15 PM INTERACTIVE ART DIRECTOR HEMOGLOBIN Timed 04/07/2024 6:10 PM INTERACTIVE ART DIRECTOR DIGOXIN Timed 04/07/2024 1:50 PM INTERACTIVE ART DIRECTOR HEMOGLOBIN Timed 04/07/2024 1:50 PM INTERACTIVE ART DIRECTOR GLUCOSE METER Timed 04/07/2024 12:33 PM INTERACTIVE ART DIRECTOR EKG 12 LEAD Routine 04/07/2024 10:01 AM INTERACTIVE ART DIRECTOR URINALYSIS MICROSCOPIC Timed 9:48 AM INTERACTIVE ART DIRECTOR UA W/ SEDIMENT EXAM REFLEXED PER CRITERIA Today 04/07/2024 9:48 AM INTERACTIVE ART DIRECTOR COVID/FLU/RSV PANEL Today 04/07/2024 9:48 AM INTERACTIVE ART DIRECTOR ICD ANALYSIS DUAL WITHOUT REPROGRAM Routine 04/07/2024 9:05 AM INTERACTIVE ART DIRECTOR ECHO TTE LIMITED W CONTRAST W COLOR W DOPPLER Routine 04/07/2024 8:53 AM INTERACTIVE ART DIRECTOR GLUCOSE METER Timed 04/07/2024 7:43 AM INTERACTIVE ART DIRECTOR EXTRA TUBE BLUE Today 04/07/2024 6:23 AM INTERACTIVE ART DIRECTOR LACTATE VENOUS Timed 04/07/2024 6:20 AM INTERACTIVE ART DIRECTOR HEMOGLOBIN Timed 04/07/2024 6:20 AM INTERACTIVE ART DIRECTOR MAGNESIUM Early AM 04/07/2024 6:20 AM INTERACTIVE ART DIRECTOR SODIUM Early AM 04/07/2024 6:20 AM INTERACTIVE ART DIRECTOR POTASSIUM Early AM 04/07/2024 6:20 AM INTERACTIVE ART DIRECTOR CREATININE Early AM 04/07/2024 6:20 AM INTERACTIVE ART DIRECTOR SCAN-CARDIAC STRIP 04/07/2024 5:29 AM INTERACTIVE ART DIRECTOR SCAN-CARDIAC STRIP 04/07/2024 3:14 AM INTERACTIVE ART DIRECTOR LACTATE VENOUS Timed 04/07/2024 2:58 AM INTERACTIVE ART DIRECTOR GLUCOSE METER Timed 04/07/2024 1:49 AM INTERACTIVE ART DIRECTOR TYPE & SCREEN Today 04/07/2024 12:39 AM INTERACTIVE ART DIRECTOR FERRITIN RUSH 04/07/2024 12:39 AM INTERACTIVE ART DIRECTOR IRON PLUS IRON BINDING CAP RUSH 04/07 12:39 AM INTERACTIVE ART DIRECTOR RETICULOCYTES RUSH 04/07/2024 12:39 AM INTERACTIVE ART DIRECTOR LACTATE VENOUS Today 04/07/2024 12:39 AM INTERACTIVE ART DIRECTOR COMP METABOLIC PANEL STAT 04/07/2024 12:39 AM INTERACTIVE ART DIRECTOR CBC W PLT NO DIFF STAT 04/07/2024 12:39 AM INTERACTIVE ART DIRECTOR XR CHEST 1 VIEW PORTABLE STAT 02/04/2 025 8:19 PM INTERACTIVE ART DIRECTOR TROPONIN I STAT 04/06/2024 7:53 PM INTERACTIVE ART DIRECTOR BASIC METABOLIC PANEL STAT 04/06/2024 7:53 PM INTERACTIVE ART DIRECTOR EXTRA TUBE LAVENDER Today 04/06/2024 3:55 PM INTERACTIVE ART DIRECTOR HEPATIC FUNCTION PANEL STAT 3:55 PM INTERACTIVE ART DIRECTOR BEDSIDE US STUDY ARCHIVE Routine 025 3:07 PM INTERACTIVE ART DIRECTOR HEPARIN LEVEL STAT 04/06/2024 2:45 PM INTERACTIVE ART DIRECTOR APTT STAT 04/06/2024 2:45 PM INTERACTIVE ART DIRECTOR PROTIME-INR STAT 04/06/2024 2:45 PM INTERACTIVE ART DIRECTOR EXTRA TUBE GOLD/SST Today 04/06/2024 2:45 PM INTERACTIVE ART DIRECTOR EXTRA TUBE BLUE Today 04/06/2024 2:45 PM INTERACTIVE ART DIRECTOR SLIDE REVIEW STAT 04/06/2024 2:45 PM INTERACTIVE ART DIRECTOR BRAIN NATRIURETIC PEPTIDE STAT 2024 2:45 PM INTERACTIVE ART DIRECTOR CBC WITH AUTO DIFFERENTIAL STAT 04/06 2:45 PM INTERACTIVE ART DIRECTOR TROPONIN I STAT 04/06/2024 2:45 PM INTERACTIVE ART DIRECTOR TSH WITH REFLEX STAT 04/06/2024 2:45 PM INTERACTIVE ART DIRECTOR MAGNESIUM STAT 04/06/2024 2:45 PM INTERACTIVE ART DIRECTOR BASIC METABOLIC PANEL STAT 04/06/2024 2:45 PM INTERACTIVE ART DIRECTOR CBC WITH AUTO DIFFERENTIAL STAT 04/06 2:45 PM INTERACTIVE ART DIRECTOR EKG 12 LEAD STAT 04/06/2024 2:35 PM INTERACTIVE ART DIRECTOR SCAN-CARDIAC STRIP 04/06/2024 12:00 AM INTERACTIVE ART DIRECTOR SCAN-CARDIAC STRIP 04/06/2024 12:00 AM INTERACTIVE ART DIRECTOR SCAN-CARDIAC STRIP 03/22/2024 12:00 AM INTERACTIVE ART DIRECTOR SCAN-CARDIAC STRIP 03/15/2024 12:00 AM INTERACTIVE ART DIRECTOR SCAN-CARDIAC STRIP 03/08/2024 12:00 AM INTERACTIVE ART DIRECTOR CT ABDOMEN PELVIS WO STAT 01/16/2024 4:53 AM INTERACTIVE ART DIRECTOR LIPID PANEL W REFLEX MEASURE D LDL [...] 16,479(H) <125 pg/mL 06/01/2024 10:17 AM CDT [facility] Blood BLOOD SPECIMEN / Unknown Non-Lab Venipuncture / Unknown 06/01/2024 9:00 AM CDT 06/01/2024 9:48 AM CDT [facility] - 06/01/2024 10:17 AM CDT The [...] Kendall MD SEND OUTS Final Res ult [facility] [address] [place] [address] * (ABNORMAL) BASIC METABOLIC PANEL (06/01/2024 9:00 AM CDT) Only the most recent of17 resultswithin the time period is included. SODIUM 138 136 - 145 mmol/L 06/01/2024 10:17 AM [facility] POTASSIUM 3.5 3.5 - 5.1 mmol/L 06/01/2024 10:17 AM [facility] CHLORIDE 98 98 - 107 mmol/L 06/01/2024 10:17 AM [facility] CO2,TOTAL 27 22 - 29 mmol/L 06/01/2024 10:17 AM [facility] ANION GAP 13 5 - 18 06/01/2024 10:17 AM [facility] GLUCOSE 116(H) 70 - 99 mg/dL 06/01/2024 10:17 AM [facility] CALCIUM 8.9 8.8 - 10.4 mg/dL 06/01/2024 10:17 AM [facility] Comment: Reference ranges for this test were updated on 01/06/2024 to reflect our healthy population more accurately. Reference range changes are not retroactively applied to results, but previous results using the same methodology can be interpreted in the context of the new reference range. BUN 38(H) 8 - 23 mg/dL 06/01/2024 10:17 AM [facility] CREATININE 2.42(H) 0.70 - 1.20 mg/dL 06/01/2024 10:17 AM [facility] BUN/CREAT RATIO 16 10 - 20 10:17 AM [facility] eGFR 28(L) >90 mL/min/1. 73m2 06/01/2024 10:17 AM [facility] Comment:As of 2021, eG FR [...] Lauro Kendall MD CHEMISTRY Final Res ult [facility] [address] [place] [address] * (ABNORMAL) PROTIME-INR (04/27/2024 10:26 AM INTERACTIVE ART DIRECTOR) Only the most recent of9 resultswithin the time period is included. INR 2.4(H) 0.8 - 1.1 04/27/2024 11:18 AM INTERACTIVE ART DIRECTOR [facility] Blood BLOOD SPECIMEN / Unknown Venipuncture / Unknown 04/27/2024 10:26 AM INTERACTIVE ART DIRECTOR 04/27/2024 10:38 AM INTERACTIVE ART DIRECTOR Shana Lozano DO HEMATOLOGY Final Result [facility] [address] [place] [address], [place] [phone] * (ABNORMAL) Hepatic function panel AM (04/21/2024 6:15 AM INTERACTIVE ART DIRECTOR) Only the most recent of11 resultswithin the time period is included. ALBUMIN 3.5(L) 4.0 - 4.9 g/dL 04/21/2024 6:57 AM INTERACTIVE ART DIRECTOR [facility] PROTEIN,TOTAL 5.9(L) 6.0 - 8.0 g/dL 04/21/2024 6:57 AM INTERACTIVE ART DIRECTOR [facility] BILIRUBIN,TOTAL 1.0 0.0 - 1.2 mg/dL 04/21/2024 6:57 AM INTERACTIVE ART DIRECTOR [facility] BILIRUBIN,DIRECT 0.5(H) 0.0 - 0.2 mg/dL 04/21/2024 6:57 AM INTERACTIVE ART DIRECTOR [facility] BILIRUBIN,INDIRE CT 0.5 0.2 - 0.8 mg/dL 04/21/2024 6:57 AM INTERACTIVE ART DIRECTOR [facility] ALK PHOSPHATASE 158(H) 40 - 129 IU/L 04/21/2024 6:57 AM INTERACTIVE ART DIRECTOR [facility] ALT (SGPT) 48 10 - 50 IU/L 04/21/2024 6:57 AM [facility] AST (SGOT) 18 10 - 50 IU/L 04/21/2024 6:[address] [facility] Blood BLOOD SPECIMEN / Unknown Venipuncture / Unknown 04/21/2024 6:15 AM INTERACTIVE ART DIRECTOR 04/21/2024 6:29 AM INTERACTIVE ART DIRECTOR us Lauro Kendall MD CHEMISTRY Final Res ult [facility] [address] [place] [address], * SCAN-CARDIAC STRIP (04/20/2024 11:03 PM INTERACTIVE ART DIRECTOR) us Scanner OTHER Final Result * SCAN-CARDIAC STRIP (04/20/2024 7:32 PM INTERACTIVE ART DIRECTOR) us Scanner OTHER Final Result * (ABNORMAL) CBC (04/20/2024 7:04 AM [facility]) Only the most recent of2 resultswithin the time period is included. WHITE BLOOD COUNT 8.1 4.5 - 11.0 thou/cu mm 04/20/2024 7:31 AM [facility] RED BLOOD COUNT 3.32(L) 4.30 - 5.90 mil/cu mm 04/20/2024 7:31 AM [facility] HEMOGLOBIN 9.6(L) 13.5 - 17.5 g/dL 04/20/2024 7:31 AM [facility] HEMATOCRIT 30.3(L) 37.0 - 53.0 % 04/20/2024 7:31 AM [facility] MCV 91 80 - 100 fL 04/20/2024 7:31 AM [facility] MCH 28.9 26.0 - 34.0 pg 04/20/2024 7:31 AM [facility] MCHC 31.7(L) 32.0 - 36.0 g/dL 04/20/2024 7:31 AM [facility] RDW 18.9(H) 11.5 - 15.5 % 04/20/2024 7:31 AM [facility] PLATELET COUNT 229 140 - 440 thou/cu mm 04/20/2024 7:31 AM [facility] MPV 10.9 6.5 - 11.0 fL 04/20/2024 7:31 AM [facility] NRBC 0.2 % 04/20/2024 7:31 AM [facility] ABS NRBC 0.0 thou /cu mm 04/20/2024 7:31 AM [facility] Blood BLOOD SPECIMEN / Unknown Venipuncture / Unknown 04/20/2024 7:04 AM INTERACTIVE ART DIRECTOR 04/20/2024 7:20 AM INTERACTIVE ART DIRECTOR Madonna Hedrick ANTIQUE REPAIRER HEMATOLOGY Final Res ult Performing Organization Address City/[facility]/ZIP Co de Phone Number [facility] [address] [place] [phone], [place] * (ABNORMAL) Magnesium AM (04/20/2024 7:04 AM INTERACTIVE ART DIRECTOR) Only the most recent of13 resultswithin the time period is included. MAGNESIUM 2.5(H) 1.6 - 2.4 mg/dL 04/20/2024 7:50 AM INTERACTIVE ART DIRECTOR [facility] Blood BLOOD SPECIMEN / Unknown Venipuncture / Unknown 04/20/2024 7:04 AM INTERACTIVE ART DIRECTOR 04/20/2024 7:20 AM INTERACTIVE ART DIRECTOR Madonna Hedrick ANTIQUE REPAIRER CHEMISTRY Final Res ult Performing Organization Address [facility] Co de Phone Number [facility] [address] [place] [phone], [place] * (ABNORMAL) O2 SATURATION,MEASURED (04/20/2024 6:22 AM INTERACTIVE ART DIRECTOR) Only the most recent of9 resultswithin the time period is included. O2 SATURATION,MANISH SURED 55 % 04/20/2024 6:38 AM INTERACTIVE ART DIRECTOR [facility] HEMOGLOBIN,BLO OD GAS 10.0(L) 13.5 - 17.5 g/dL 04/20/2024 6:38 AM INTERACTIVE ART DIRECTOR [facility] SOURCE, O2M Venous 04/20/2024 6:38 AM INTERACTIVE ART DIRECTOR [facility] Blood BLOOD SPECIMEN / Unknown Non-Lab Venipuncture / Unknown 04/20/2024 6:22 AM INTERACTIVE ART DIRECTOR 04/20/2024 6:34 AM INTERACTIVE ART DIRECTOR Narrative [facility] - 04/20/2024 6:38 AM INTERACTIVE ART DIRECTOR Reference Range for: Arterial Source (94-98) Non-Arterial Source (70-75) Marylou Currie ANTIQUE REPAIRER CHEMISTRY Final R esult Performing Organization Address City/[facility]/ZIP Co de Phone Number [facility] [address] [address], * SCAN-CARDIAC STRIP (04/19/2024 7:23 PM INTERACTIVE ART DIRECTOR) us Scanner OTHER Final Result * SCAN-CARDIAC STRIP (04/19/2024 1:45 PM INTERACTIVE ART DIRECTOR) us Scanner OTHER Final Result * (ABNORMAL) Hemoglobin AM (04/19/2024 6:57 AM INTERACTIVE ART DIRECTOR) Only the most recent of8 resultswithin the time period is included. Pathologist [facility] HEMOGLOBIN 10.3(L) 13.5 - 17.5 g/dL 04/19/2024 8:14 AM INTERACTIVE ART DIRECTOR [facility] MCV 93 80 - 100 fL 04/19/2024 8:14 AM INTERACTIVE ART DIRECTOR [facility] Blood BLOOD SPECIMEN / Unknown Non-Lab Venipuncture / Unknown 04/19/2024 6:57 AM INTERACTIVE ART DIRECTOR 04/19/2024 8:09 AM INTERACTIVE ART DIRECTOR us Deborah Lipscomb MD HEMATOLOGY Final R esult Performing Organization Address [facility] Co de Phone Number [facility] [address] [address], * SCAN-CARDIAC STRIP (04/18/2024 10:04 PM INTERACTIVE ART DIRECTOR) us Scanner OTHER Final Result * SCAN-CARDIAC STRIP (04/18/2024 5:43 PM INTERACTIVE ART DIRECTOR) us Scanner OTHER Final Result * POTASSIUM (04/18/2024 12:45 PM INTERACTIVE ART DIRECTOR) Only the most recent of11 resultswithin the time period is included. Pathologist [facility] POTASSIUM 3.9 3.5 - 5.1 mmol/L 04/18/2024 1:14 PM INTERACTIVE ART DIRECTOR [facility] Blood BLOOD SPECIMEN / Unknown Venipuncture / Unknown 04/18/2024 12:45 PM INTERACTIVE ART DIRECTOR 04/18/2024 12:51 PM INTERACTIVE ART DIRECTOR us Deborah Lipscomb MD CHEMISTRY Final R esult Performing Organization Address [facility] Co de Phone Number [facility] [address] [place] [address], [place] * SCAN-CARDIAC STRIP (04/18/2024 7:46 AM INTERACTIVE ART DIRECTOR) us Scanner OTHER Final Result * SCAN-CARDIAC STRIP (04/17/2024 11:49 PM INTERACTIVE ART DIRECTOR) us Scanner OTHER Final Result * SCAN-CARDIAC STRIP (04/17/2024 9:12 PM INTERACTIVE ART DIRECTOR) us Scanner OTHER Final Result * SCAN-CARDIAC STRIP (04/17/2024 7:41 AM INTERACTIVE ART DIRECTOR) us Scanner OTHER Final Result * SCAN-CARDIAC STRIP (04/16/2024 11:25 PM INTERACTIVE ART DIRECTOR) us Scanner OTHER Final Result * (ABNORMAL) ALT (SGPT) (04/16/2024 10:19 AM INTERACTIVE ART DIRECTOR) ALT (SGPT) 201(H) 10 - 50 IU/L 04/16/2024 11:00 AM INTERACTIVE ART DIRECTOR [facility] Blood BLOOD SPECIMEN / Unknown Butterfly / Unknown 04/16/2024 10:19 AM INTERACTIVE ART DIRECTOR 04/16/2024 10:30 AM INTERACTIVE ART DIRECTOR us Deborah Lipscomb MD CHEMISTRY Final R esult Performing Organization Address City/[facility]/ZIP Co de Phone Number [facility] [address] [place] [address], [place] * (ABNORMAL) AST (SGOT) (04/16/2024 10:19 AM INTERACTIVE ART DIRECTOR) AST (SGOT) 58(H) 10 - 50 IU/L 04/16/2024 11:00 AM INTERACTIVE ART DIRECTOR [facility] Blood BLOOD SPECIMEN / Unknown Butterfly / Unknown 04/16/2024 10:19 AM INTERACTIVE ART DIRECTOR 04/16/2024 10:30 AM INTERACTIVE ART DIRECTOR Deborah Lipscomb MD CHEMISTRY Final R esult Performing Organization Address [facility] Co de Phone Number [facility] [address] [address], [place] * (ABNORMAL) ALK PHOSPHATASE (04/16/2024 10:19 AM INTERACTIVE ART DIRECTOR) ALK PHOSPHATASE 157(H) 40 - 129 IU/L 04/16/2024 11:00 AM INTERACTIVE ART DIRECTOR [facility] Blood BLOOD SPECIMEN / Unknown Butterfly / Unknown 04/16/2024 10:19 AM INTERACTIVE ART DIRECTOR 04/16/2024 10:30 AM INTERACTIVE ART DIRECTOR Deborah Lipscomb MD CHEMISTRY Final R esult Performing Organization Address [facility] Co de Phone Number [facility] [address] [place] [phone], [place] * (ABNORMAL) BILIRUBIN DIRECT (04/16/2024 10:19 AM INTERACTIVE ART DIRECTOR) BILIRUBIN,DIRE CT 0.6(H) 0.0 - 0.2 mg/dL 04/16/2024 11:00 AM INTERACTIVE ART DIRECTOR [facility] Blood BLOOD SPECIMEN / Unknown Butterfly / Unknown 04/16/2024 10:19 AM INTERACTIVE ART DIRECTOR 04/16/2024 10:30 AM INTERACTIVE ART DIRECTOR Deborah Lipscomb MD CHEMISTRY Final R esult Performing Organization Address [facility] Co de Phone Number [facility] [address] [place] [phone], [place] * SCAN-CARDIAC STRIP (04/16/2024 8:23 AM INTERACTIVE ART DIRECTOR) Scanner OTHER Final Result * (ABNORMAL) SODIUM (04/16/2024 8:09 AM INTERACTIVE ART DIRECTOR) Only the most recent of2 resultswithin the time period is included. SODIUM 134(L) 136 - 145 mmol/L 04/16/2024 9:45 AM INTERACTIVE ART DIRECTOR [facility] Blood BLOOD SPECIMEN / Unknown Non-Lab Venipuncture / Unknown 04/16/2024 8:09 AM INTERACTIVE ART DIRECTOR 04/16/2024 9:06 AM INTERACTIVE ART DIRECTOR Deborah Lipscomb MD CHEMISTRY Final R esult Performing Organization Address City/[facility]/ZIP Co de Phone Number [facility] [address] [place] [address], [place] * (ABNORMAL) CREATININE (04/16/2024 8:09 AM INTERACTIVE ART DIRECTOR) Only the most recent of2 resultswithin the time period is included. eGFR 37(L) >90 mL/min/1.7 3m2 04/16/2024 9:45 AM INTERACTIVE ART DIRECTOR [facility] Comment:As of 2021, eG FR is calculated by the CKD-EPI creatinine equation without race adjustment. eGFR can be influenced by muscle mass, exercise, and diet. The reported eGFR is an estimation only and is only applicable if the renal function is stable. CREATININE 1.91(H) 0.70 - 1.20 mg/dL 04/16/2024 9:45 AM INTERACTIVE ART DIRECTOR [facility] Blood BLOOD SPECIMEN / Unknown Non-Lab Venipuncture / Unknown 04/16/2024 8:09 AM INTERACTIVE ART DIRECTOR 04/16/2024 9:06 AM INTERACTIVE ART DIRECTOR Deborah Lipscomb MD CHEMISTRY Final R esult Performing Organization Address City/[facility]/ZIP Co de Phone Number [facility] [address] [address], [place] * SCAN-CARDIAC STRIP (04/16/2024 1:03 AM INTERACTIVE ART DIRECTOR) Scanner OTHER Final Result * SCAN-CARDIAC STRIP (04/15/2024 8:37 PM INTERACTIVE ART DIRECTOR) us Scanner OTHER Final Result * EKG 12 LEAD (04/15/2024 12:31 PM INTERACTIVE ART DIRECTOR) Only the most recent of6 resultswithin the [...] NOW QTc 448 ms BEYOND NOW P [place] 53 degrees BEYOND NOW R [place] -60 degrees BEYOND NOW T [place] 118 degrees BEYOND NOW 04/15/2024 12:3 1 PM INTERACTIVE ART DIRECTOR 04/16/2024 1:25 AM INTERACTIVE ART DIRECTOR us Jossie Prado NP EKG ORD Final Result Performing Organization Address [facility] Co de Phone Number [facility] [place], [place] * (ABNORMAL) GLUCOSE METER (04/15/2024 7:49 AM INTERACTIVE ART DIRECTOR) Only the most recent of33 resultswithin the time period is included. GLUCOSE METER 134(H) 65 - 100 mg/dL 04/15/2024 7:54 AM INTERACTIVE ART DIRECTOR [facility] Share Some Style [facility] Blood BLOOD SPECIMEN / Unknown 04/15/2024 7:49 AM INTERACTIVE ART DIRECTOR 04/15/2024 7:54 AM INTERACTIVE ART DIRECTOR us Deborah Lipscomb MD CHEMISTRY Final R esult Performing Organization Address City/[facility]/ZIP Co de Phone Number [facility] [address] [place] [address], [place] * SCAN-CARDIAC STRIP (04/15/2024 7:26 AM INTERACTIVE ART DIRECTOR) us Scanner OTHER Final Result * SCAN-CARDIAC STRIP (04/15/2024 3:06 AM INTERACTIVE ART DIRECTOR) us Scanner OTHER Final Result * SCAN-CARDIAC STRIP (04/14/2024 9:43 PM INTERACTIVE ART DIRECTOR) us Scanner OTHER Final Result * SCAN-CARDIAC STRIP (04/14/2024 3:27 PM INTERACTIVE ART DIRECTOR) us Scanner OTHER Final Result * ICD ANALYSIS DUAL WITHOUT REPROGRAM (04/14/2024 3:13 PM INTERACTIVE ART DIRECTOR) Narrative Vasyl Kim MD - 04/14/2024 3:13 PM INTERACTIVE ART DIRECTOR Marino Strickland RN 04/14/2024 3:17 PM ICD EVALUATION REPORT 04/14/2024 Summary: Normal pacemaker function. Lead trends stable. 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 No VT detections. AP 20.9%, TRANSCRIPTION SPECIALIST 0.2%. Battery estimating 11.2 years remaining. Indication for ICD: Primary Prevention of Sudden Cardiac Primary MD: Shana Lozano DO Primary Financial Analyst Intern: [facility] Implanting MD: Bert Quiros- [facility] DEVICE DATA Locker Attendant Medtronic: Model [place] XT DR [id number] Implant Date 04/09/2023 LEAD DATA Atrial Lead: Locker Attendant Medtronic: Model 5076-52 cm Implant Date 04/09/23 RV Lead: Locker Attendant Medtronic: Model [id number]-62 cm Implant Date 04/09/23 [...] Tachy therapy hx: none Location of evaluation: [facility] [id number] Reason for evaluation: MD [...] permanent changes made. Follow up: follows with [facility] device clinic Marino Strickland RN Nurse Clinician II [facility] Pacemaker/ICD [phone] us Vasyl Kim MD CARDIAC SERVICES ORD Final Result * SCAN-CARDIAC STRIP (04/14/2024 7:21 AM INTERACTIVE ART DIRECTOR) us Scanner OTHER Final Result * URINALYSIS MICROSCOPIC (04/14/2024 6:29 AM INTERACTIVE ART DIRECTOR) Only the most recent of2 resultswithin the time period is included. RBC 0-2 0-2, None Seen /HPF 04/14/2024 7:26 AM INTERACTIVE ART DIRECTOR [facility] WBC 3-5 0-2, 3-5, None Seen /HPF 04/14/2024 7:26 AM INTERACTIVE ART DIRECTOR [facility] BACTERIA None Seen None Seen, Rare, Few Bacteria/ HPF 04/14/2024 7:26 AM INTERACTIVE ART DIRECTOR [facility] EPITHELIAL CELLS None Seen None Seen, Few Epi/HPF 04/14/2024 7:26 AM INTERACTIVE ART DIRECTOR [facility] HYALINE CASTS 0-2 0-2, 3-5 /LPF 04/14/2024 7:26 AM INTERACTIVE ART DIRECTOR [facility] Urine URINE SPECIMEN / Unknown Non-Blood / Unknown 04/14/2024 6:29 AM INTERACTIVE ART DIRECTOR 04/14/2024 6:36 AM INTERACTIVE ART DIRECTOR us Santy Crowley MD URINE Final Re sult [facility] [address] [place] [address], [place] * (ABNORMAL) UA W/ SEDIMENT EXAM REFLEXED PER CRITERIA (04/14/2024 6:29 AM INTERACTIVE ART DIRECTOR) Only the most recent of2 resultswithin the time period is included. COLOR Yellow Yellow Color 04/14/2024 7:[address] [facility] CLARITY Clear Clear Clarity 04/14/2024 7:[address] [facility] SPECIFIC GRAVITY,URINE 1.015 1.010, 1.015, 1.020, 1.025 04/14/2024 7:[address] [facility] PH,URINE 5.5 6.0, 7.0, 8.0, 5.5, 6.5, 7.5, 8.5 04/14/2024 7:26 AM INTERACTIVE ART DIRECTOR [facility] UROBILINOGEN, QUALITATIVE Normal Normal EU/dl 04/14/2024 7:[address] [facility] PROTEIN, URINE Negative Negative mg/dL 04/14/2024 7:[address] [facility] GLUCOSE, URINE Negative Negative mg/dL 04/14/2024 7:[address] [facility] KETONES,URINE Negative Negative mg/dL 04/14/2024 7:26 AM INTERACTIVE ART DIRECTOR [facility] TRAL LABORATORY BILIRUBIN,URI NE Negative Negative 04/14/2024 7:26 AM INTERACTIVE ART DIRECTOR [facility] TRAL LABOR[facility]ORY OCCULT BLOOD,URINE Negative Negative 04/14/2024 7:26 AM INTERACTIVE ART DIRECTOR [facility] TR[facility] LAB[facility]ORY NITRITE Negative Negative 04/14/2024 7:26 AM INTERACTIVE ART DIRECTOR [facility] TRAL LABOR[facility]ORY LEUKOCYTE ESTERASE Trace(A) Negative 04/14/2024 7:26 AM INTERACTIVE ART DIRECTOR [facility] TR[facility] LAB[facility] Urine URINE SPECIMEN / Unknown Non-Blood / Unknown 04/14/2024 6:29 AM INTERACTIVE ART DIRECTOR 04/14/2024 6:36 AM INTERACTIVE ART DIRECTOR us Santy Crowley MD URINE Final Re sult [facility] [address] [place] [address], [place] * SCAN-CARDIAC STRIP (04/13/2024 8:03 PM INTERACTIVE ART DIRECTOR) us Scanner OTHER Final Result * PICC LINE (04/13/2024 7:28 PM INTERACTIVE ART DIRECTOR) Narrative Eleonora Fox RN - 04/13/2024 7:28 PM INTERACTIVE ART DIRECTOR Eleonora Fox, RN 04/13/2024 7:33 PM PICC Line Insertion Note 04/13/2024 7:28 PM Procedure education reviewed: Placement procedure, discussed with: Patient face to face. Patient face to face confirms understanding of procedure. Social Scientist used: No Reason for insertion: MD order [...] (Active) 04/13/241899 Right;Basilic;Upper Arm Vessel Diameter: 0.46 Euvrevvq-hc-Bspd Ratio (%): Visible Catheter Length (cm): 0 [...] Dressing change due date 04/20/2024 04/13/241899 Line Locker Attendant Name: [employer] Line Type: Valved Power PICC Lot Number: [id number] Access Assistance:Modified Seldinger Technique (Micro-Introducer) WITH Dermatotomy [...] * Insert PICC line (04/13/2024 7:20 PM INTERACTIVE ART DIRECTOR) Narrative Eleonora Fox, RN - 04/13/2024 7:20 PM INTERACTIVE ART DIRECTOR Eleonora Fox, RN 04/13/2024 7:22 PM PICC [...] ult * SCAN-CARDIAC STRIP (04/13/2024 3:12 PM INTERACTIVE ART DIRECTOR) Scanner OTHER Final Result * ICD ANALYSIS DUAL WITHOUT REPROGRAM (04/13/2024 1:57 PM INTERACTIVE ART DIRECTOR) Narrative Vasyl Kim MD - 04/13/2024 1:57 PM INTERACTIVE ART DIRECTOR Mirela Bates, AMELIA 04/13/2024 2:23 PM ICD EVALUATION REPORT 04/13/2024 Summary: Normal pacemaker function. Lead trends stable. 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 No VT detections. AP 2.9%, TRANSCRIPTION SPECIALIST 51.9%. Battery estimating 11.3 years remaining. Indication for ICD: Primary Prevention of Sudden Cardiac Primary MD: Shana Lozano DO Primary Financial Analyst Intern: [facility] Implanting MD: Bert Quiros- [facility] DEVICE DATA Locker Attendant Medtronic: Model [place] XT DR [id number] Implant Date 04/09/2023 LEAD DATA Atrial Lead: Locker Attendant Medtronic: Model 5076-52 cm Implant Date 04/09/23 RV Lead: Locker Attendant Medtronic: Model 6935M-62 cm Implant Date 04/09/23 [...] Tachy therapy hx: none Location of evaluation: [facility] [id number] Reason for evaluation: MD [...] permanent changes made. Follow up: follows with [facility] device clinic Mirela Bates RN Nurse Clinician II I Pacemaker/ICD Clinic [phone] us Vasyl Kim MD CARDIAC SERVICES ORD Final Result * SCAN-CARDIAC STRIP (04/13/2024 7:35 AM INTERACTIVE ART DIRECTOR) us Scanner OTHER Final Result * (ABNORMAL) COMPREHENSIVE BLOOD GAS MIXED VENOUS (04/12/2024 4:48 PM INTERACTIVE ART DIRECTOR) O2 SATURATION, MEASURED, MIXED VENOUS 41(L) 70 - 75 % 04/12/2024 4:48 PM INTERACTIVE ART DIRECTOR [facility] PATIENT TEMPERATURE 37.0 Degrees C 04/12/2024 4:48 PM INTERACTIVE ART DIRECTOR [facility] COLLECTION SITE PULMONARY ARTERY 04/12/2024 4:48 PM INTERACTIVE ART DIRECTOR [facility] HEMOGLOBIN,BLOO D GAS 11.4(L) 13.5 - 17.5 g/dL 04/12/2024 4:48 PM INTERACTIVE ART DIRECTOR [facility] Blood BLOOD SPECIMEN / Unknown 04/12/2024 4:48 PM INTERACTIVE ART DIRECTOR 04/12/2024 4:48 PM INTERACTIVE ART DIRECTOR [facility] [place]MISTRY Final Re sult [facility] [address] [place] [address], * CVL OTHER PROCEDURE (04/12/2024 4:09 PM INTERACTIVE ART DIRECTOR) Anatomical Region Laterality Modality Other 04/12/2024 4:09 PM INTERACTIVE ART DIRECTOR us Provider Referring CV IMAGING Final Result * SCAN-CARDIAC STRIP (04/12/2024 3:27 PM INTERACTIVE ART DIRECTOR) us Scanner OTHER Final Result * US RENAL AND BLADDER COMPLETE (04/12/2024 2:51 PM INTERACTIVE ART DIRECTOR) Anatomical Region Laterality Modality Abdomen, AORTA, KIDNEYS Ultrasou nd 04/12/2024 3:4 6 PM INTERACTIVE ART DIRECTOR Impressions 04/12/2024 3:46 PM INTERACTIVE ART DIRECTOR Simple appearing right lower pole renal cyst. Otherwise, no concerning findings on a renal ultrasound. Dictated by Danny Rubio MD @ 04/12/2024 3:46:12 PM (Electronically Signed) Narrative 04/12/2024 3:46 PM INTERACTIVE ART DIRECTOR For Patients: As a result of the [...] COLOR W LTD DOPPLER (04/12/2024 10:52 AM INTERACTIVE ART DIRECTOR) MITRAL VALVE MR ERO 13 mm2 EJECTION FRACTION 10 - 20% Anatomical Region Laterality Modality Ultrasound 04/12/2024 10:2 2 AM INTERACTIVE ART DIRECTOR Narrative 04/12/2024 1:01 PM INTERACTIVE ART DIRECTOR TRANSESOPHAGEAL ECHOCARDIOGRAM CASEY SOLER : 1950 73 years Study Date: 04/12/2024 10:22:59 AM Gender: M BP: 96/76 mmHg Height: 172.00 cm BSA: 1.91 m Weight: 78.00 kg Tech: LETICIA/ION Referring MD: FARA BLACKWELL Site: [facility] Reading Location: [facility] Patient Location: Inpatient. Procedure: NOEL, Limited [...] . This study was interpreted by an [facility] accredited facility. Final Procedure Note Troy Munoz MD - 04/12/2024 TRANSESOPHAGEAL ECHOCARDIOGRAM CASEY SOLER : 1950 73 years Study Date: 04/12/2024 10:22:59 AM Gender: M BP: 96/76 mmHg Height: 172.00 cm BSA: 1.91 m Weight: 78.00 kg Tech: LETICIA/ION Referring MD: FARA BLACKWELL Site: [facility] Reading Location: [facility] Patient Location: Inpatient. Procedure: NOEL, Limited [...] . This study was interpreted by an [facility] accredited facility. Final us Fara Blackwell ANTIQUE REPAIRER ECHO ORD Final Resu lt * EP OTHER PROCEDURE (04/12/2024 10:48 AM INTERACTIVE ART DIRECTOR) Anatomical Region Laterality Modality Other Narrative 04/12/2024 10:48 AM INTERACTIVE ART DIRECTOR Troy Munoz MD 04/12/2024 10:48 AM [facility] Procedure Note Date of Service: 04/12/2024 Procedure [...] no apparent complications. Troy Munoz MD us mEilee Hudson ANTIQUE REPAIRER CV IMAGING Final Re sult * SCAN-CARDIAC STRIP (04/12/2024 3:46 AM INTERACTIVE ART DIRECTOR) us Scanner OTHER Final Result * SCAN-OPERATIVE/PROCEDURE REPORT (04/12/2024 12:00 AM INTERACTIVE ART DIRECTOR) Narrative 04/12/2024 12:00 AM INTERACTIVE ART DIRECTOR Ordered by an unspecified provider. us Other Clinical Staff OTHER Final Resul t * SCAN-CARDIAC STRIP (04/11/2024 8:21 PM INTERACTIVE ART DIRECTOR) us Scanner OTHER Final Result * SCAN-CARDIAC STRIP (04/11/2024 4:18 PM INTERACTIVE ART DIRECTOR) us Scanner OTHER Final Result * SCAN-CARDIAC STRIP (04/11/2024 7:48 AM INTERACTIVE ART DIRECTOR) us Scanner OTHER Final Result * SCAN-CARDIAC STRIP (04/10/2024 4:04 PM INTERACTIVE ART DIRECTOR) us Scanner OTHER Final Result * SCAN-CARDIAC STRIP (04/10/2024 10:29 AM INTERACTIVE ART DIRECTOR) us Scanner OTHER Final Result * SCAN-CARDIAC STRIP (04/10/2024 5:01 AM INTERACTIVE ART DIRECTOR) us Scanner OTHER Final Result * SCAN-CARDIAC STRIP (04/09/2024 7:40 PM INTERACTIVE ART DIRECTOR) us Scanner OTHER Final Result * SCAN-CARDIAC STRIP (04/09/2024 3:40 PM INTERACTIVE ART DIRECTOR) us Scanner OTHER Final Result * PATH TISSUE EXAM (04/08/2024 12:39 PM INTERACTIVE ART DIRECTOR) Case Report Pathology Report Case: [id number] Authorizing Provider: Chepe Francis MD Collected: 04/08/2024 1239 Ordering Location: [facility] Received: 04/08/2024 1244 [facility] Pathologist: Lukasz Pinto MD Specimen: Gastric Biopsy 04/09/2024 11:12 AM INTERACTIVE ART DIRECTOR [facility] Final Diagnosis A) STOMACH, BIOPSY: 1. Normal gastric antral and body mucosae with endoscopic erosion (see comment) 2. Negative for chronic gastritis or Helicobacter 04/09/2024 11:12 AM INTERACTIVE ART DIRECTOR [facility] 1112 INTERACTIVE ART DIRECTOR Comment A) We note the endoscopic presence of an erosion. The sampled mucosa is histologically normal. In this context patchy reactive gastropathy due to chemical type injury (NSAIDs, alcohol, bile reflux, etc.) seems likely. Please correlate clinically. 04/09/2024 11:12 AM INTERACTIVE ART DIRECTOR [facility] Clinical Information 73-year-old male with iron deficiency anemia and melena. He is on chronic aspirin, Plavix, and ibuprofen. EGD identified a single erosion in the prepyloric region of the stomach. 04/09/2024 11:12 AM [facility] Gross Description A) Received in formalin is a 6 x 3 x 1 mm aggregate of alvarez mucosa. Submitted in one cassette. It is labeled with the patient's name and designated gastric biopsy. Joana Estrada 04/08/2024 1:06 PM 04/09/2024 11:12 AM [facility] Share Some Style [facility] Microscopic Description The final diagnosis is based on microscopic examination of appropriate sections of all specimens. 04/09/2024 11:12 AM INTERACTIVE ART DIRECTOR [facility] ENTRAL LAB[facility]ATORY Additional Information Interpreted at [facility] [employer] [facility], Central Laboratory - [address], [place] [address] 04/09/2024 11:12 AM INTERACTIVE ART DIRECTOR [facility] Biopsy GASTRIC BIOPSY SPECIMEN / Unknown 04/08/2024 12:39 PM INTERACTIVE ART DIRECTOR 04/08/2024 12:44 PM INTERACTIVE ART DIRECTOR Chepe Francis MD PATHOLOGY/CYTOLOGY Christy griffith Result [facility] [address] [place] [address], * ENDOSCOPY (04/08/2024 9:49 AM INTERACTIVE ART DIRECTOR) 04/08/2024 9:49 AM INTERACTIVE ART DIRECTOR Narrative Transcriptions Chepe Francis MD - 04/08/2024 1:46 PM CST [place] [facility] Patient Name: Casey Soler Procedure Date: 04/08/2024 Gender: Male Date of : 1950 Admit Type: Inpatient Procedure: Upper GI endoscopy Proceduralist: Chepe Francis MD - [facility] Indications/Pre-Op Diagnosis: Iron deficiency anemia, Melena; chronicaspirin 81 mg and plavix; chronic ibuprofen usedaily; recently started on anticoagulation foratrial fibrillation Medications: Monitored Anesthesia Care Procedure Description: Risk of bleeding, infection, perforation, need for surgery and alternatives discussed. The endoscope [id number] was introduced through the mouth, and advanced [...] * EXTRA TUBE LAVENDER (04/08/2024 6:45 AM INTERACTIVE ART DIRECTOR) Only the most recent of2 resultswithin the time period is included. Blood BLOOD SPECIMEN / Unknown Non-Lab Venipuncture / Unknown 04/08/2024 6:45 AM INTERACTIVE ART DIRECTOR 04/08/2024 6:57 AM INTERACTIVE ART DIRECTOR Joseph Arora MD LABORATORY Final Re sult Performing Organization Address City/[facility]/ZIP Co de Phone Number [facility] [employer]AL [facility]AT[facility] [address] [place] [address], [place] * EXTRA TUBE BLUE (04/08/2024 6:45 AM INTERACTIVE ART DIRECTOR) Only the most recent of3 resultswithin the time period is included. Blood BLOOD SPECIMEN / Unknown Non-Lab Venipuncture / Unknown 04/08/2024 6:45 AM INTERACTIVE ART DIRECTOR 04/08/2024 6:57 AM INTERACTIVE ART DIRECTOR Joseph Arora MD LABORATORY Final Re sult Performing Organization Address City/[facility]/ZIP Co de Phone Number [facility] [address] [place] [id number], [place] * SCAN-CARDIAC STRIP (04/07/2024 11:52 PM INTERACTIVE ART DIRECTOR) us Scanner OTHER Final Result * (ABNORMAL) DIGOXIN (04/07/2024 1:50 PM INTERACTIVE ART DIRECTOR) DIGOXIN 2.5(H) 0.8 - 2.0 ng/mL 04/07/2024 2:32 PM INTERACTIVE ART DIRECTOR [facility] TRAL LAB[facility]ATORY DATE OF LAST DOSE Not Given 04/07/2024 2:32 PM INTERACTIVE ART DIRECTOR [facility] TIME OF LAST DOSE Not Given 04/07/2024 2:32 PM INTERACTIVE ART DIRECTOR [facility] Blood BLOOD SPECIMEN / Unknown Venipuncture / Unknown 04/07/2024 1:50 PM INTERACTIVE ART DIRECTOR 04/07/2024 1:55 PM INTERACTIVE ART DIRECTOR Guille Choi NP CHEMISTRY Final Result Performing Organization Address [facility]/ZIP Co de Phone Number [facility] [address] [place] [address], * COVID/FLU/RSV PANEL (04/07/2024 9:48 AM INTERACTIVE ART DIRECTOR) Pathologist [facility] COVID 19 [facility] Negative Negative 04/07/2024 12:16 PM INTERACTIVE ART DIRECTOR [facility] Comment:All PCR tests are krishnan bject to false negative result due to variability in viral load and collection technique. A negative result does not rule out a SARS-CoV-2 infection. Clinical correlation required. INFLUENZA A PCR Negative 12:16 PM INTERACTIVE ART DIRECTOR [facility] INFLUENZA B PCR Negative 12:16 PM INTERACTIVE ART DIRECTOR [facility] Respiratory Syncytial Virus Negative 04/07/2024 12:16 PM INTERACTIVE ART DIRECTOR [facility] Swab NASOPHARYNGEAL SWAB / Unknown Non-Blood / Unknown 04/07/2024 9:48 AM INTERACTIVE ART DIRECTOR 04/07/2024 10:17 AM INTERACTIVE ART DIRECTOR Joseph Arora MD MICROBIOLOGY Final Re sult [facility]-CENTRAL LABORATORY [address] [address], * ICD ANALYSIS DUAL WITHOUT REPROGRAM (04/07/2024 9:05 AM INTERACTIVE ART DIRECTOR) Narrative Chato Benz MD - 04/07/2024 9:05 AM INTERACTIVE ART DIRECTOR Mirela Bates RN 04/07/2024 9:59 AM ICD EVALUATION REPORT April 07, 2024 Summary: Normal pacemaker function. Lead trends stable. One AT/AF detection- beginning on 04/03/24 and has continuous since this time. Poor ventricular rate control. One VT detection on 01/29/24- 3 seconds rate of 233 bpm. AP 35.8%, TRANSCRIPTION SPECIALIST 2.2%. Battery estimating 11.3 years remaining. Indication for ICD: Primary Prevention of Sudden Cardiac Primary MD: Shana Lozano DO Primary Financial Analyst Intern: [facility] Implanting MD: Bert Quiros- [facility] DEVICE DATA Locker Attendant [employer]: Model [place] XT DR [id number] Implant Date 04/09/2023 LEAD DATA Atrial Lead: Locker Attendant [employer]: Model 5076-52 cm Implant Date 04/09/23 RV Lead: Locker Attendant [employer]: Model 6935M-62 cm Implant Date 04/09/23 [...] Tachy therapy hx: none Location of evaluation: [facility] [id number] Reason for evaluation: MD [...] permanent changes made. Follow up: follows with [facility] device clinic Mirela Bates RN Nurse Clinician II [facility] Pacemaker/ICD Clinic [phone] us Chato Benz MD CARDIAC SERVICES ORD F inal Result * ECHO TTE LIMITED W CONTRAST W COLOR W DOPPLER (04/07/2024 8:53 AM INTERACTIVE ART DIRECTOR) AORTIC VALVE MEAN PG 2 mmHg EJECTION FRACTION 20 % LVEDD 6.6 cm Anatomical Region Laterality Modality Ultrasound 04/07/2024 8:08 AM INTERACTIVE ART DIRECTOR Narrative 04/07/2024 9:36 AM INTERACTIVE ART DIRECTOR ECHOCARDIOGRAM CASEY SOLER : 1950 73 years Study Date: 04/07/2024 8:08:24 AM Gender: M BP: 90/87 mmHg Height: 172.00 cm BSA: 1.94 m Weight: 81.00 kg Tech: LETICIA Referring MD: GUILLE CHOI Site: [facility] Reading Location: ANW IP Patient [...] 2 ml diluted Definity, lot #[id number], [facility]# [id number] was administered peripherally to enhance visualization of all left ventricular segments. . This study was interpreted by an [facility] accredited facility. Final Procedure Note Jayashree Velarde MD - 04/07/2024 ECHOCARDIOGRAM CASEY SOLER : 1950 73 years Study Date: 04/07/2024 8:08:24 AM Gender: M BP: 90/87 mmHg Height: 172.00 cm BSA: 1.94 m Weight: 81.00 kg Tech: LETICIA Casas MD: GUILLE CHOI Site: [facility] Reading Location: [facility] Patient Location: Inpatient. Procedure: Limited Echo [...] 2 ml diluted Definity, lot #[id number], [facility]#[id number] was administered peripherally to enhance visualization of allleft ventricular segments. . This study was interpreted by an [facility] accredited facility. Final us Guille Choi NP ECHO ORD Final Result * (ABNORMAL) LACTATE VENOUS (04/07/2024 6:20 AM INTERACTIVE ART DIRECTOR) Only the most recent of3 resultswithin the time period is included. Pathologist [facility] LACTATE,VENOUS 2.5(H) 0.5 - 2.0 mmol/L 04/07/2024 7:32 AM INTERACTIVE ART DIRECTOR [facility] Blood BLOOD SPECIMEN / Unknown Venipuncture / Unknown 04/07/2024 6:20 AM INTERACTIVE ART DIRECTOR 04/07/2024 6:59 AM INTERACTIVE ART DIRECTOR us Guille Choi NP CHEMISTRY Final Result Performing Organization Address City/[facility]/ZIP Co de Phone Number [facility] [address] [place] [address], [place] * SCAN-CARDIAC STRIP (04/07/2024 5:29 AM INTERACTIVE ART DIRECTOR) us Scanner OTHER Final Result * SCAN-CARDIAC STRIP (04/07/2024 3:14 AM INTERACTIVE ART DIRECTOR) us Scanner OTHER Final Result * TYPE & SCREEN (04/07/2024 12:39 AM INTERACTIVE ART DIRECTOR) Pathologist [facility] ABORH A Rh Positive 04/07/2024 2:10 AM INTERACTIVE ART DIRECTOR [facility] LAB BLOOD BANK ANTIBODY SCREEN Negative Negative 04/07/2024 2:10 AM INTERACTIVE ART DIRECTOR [email or web address] SPECIMEN EXPIRATION DATE/TIME 04/10/24 23:59 04/07/2024 2:10 AM INTERACTIVE ART DIRECTOR [email or web address] Blood BLOOD SPECIMEN / Unknown Butterfly / Unknown 04/07/2024 12:39 AM INTERACTIVE ART DIRECTOR 04/07/2024 1:05 AM INTERACTIVE ART DIRECTOR Guille Choi NP BLOOD BANK Final Result Performing Organization Address City/[facility]/ZIP Co de Phone Number [email or web address] [address] [place] [address], [place] [phone] * (ABNORMAL) Iron plus iron binding cap AM (04/07/2024 12:39 AM INTERACTIVE ART DIRECTOR) IRON 57(L) 61 - 157 ug/dL 04/07/2024 2:03 AM INTERACTIVE ART DIRECTOR [facility] UIBC (UNSATURATED) 229 112 - 347 ug/dL 04/07/2024 2:03 AM INTERACTIVE ART DIRECTOR [facility] IRON BINDING CAPACITY 286 250 - 400 ug/dL 04/07/2024 2:03 AM INTERACTIVE ART DIRECTOR [facility] IRON,% SATURATION 20 14 - 50 % 04/07/2024 2:03 AM INTERACTIVE ART DIRECTOR [facility] Blood BLOOD SPECIMEN / Unknown Butterfly / Unknown 04/07/2024 12:39 AM INTERACTIVE ART DIRECTOR 04/07/2024 1:05 AM INTERACTIVE ART DIRECTOR Parmjit Berrios MD CHEMISTRY Final Resul t Performing Organization Address City/[facility]/ZIP Co de Phone Number [facility] [address] [place] [address], * (ABNORMAL) Reticulocyte count AM (04/07/2024 12:39 AM INTERACTIVE ART DIRECTOR) Pathologist [facility] RETIC% 2.3(H) 0.5 - 1.5 % 04/07/2024 1:35 AM INTERACTIVE ART DIRECTOR [facility] RETIC (ABSOLUTE) 0.09(H) 0.03 - 0.08 mil/cu mm 04/07/2024 1:35 AM INTERACTIVE ART DIRECTOR [facility] Blood BLOOD SPECIMEN / Unknown Butterfly / Unknown 04/07/2024 12:39 AM INTERACTIVE ART DIRECTOR 04/07/2024 1:05 AM INTERACTIVE ART DIRECTOR us Parmjit Berrios MD HEMATOLOGY Final Resul t Performing Organization Address City/[facility]/ZIP Co de Phone Number [facility] [address] [place] [address], [place] * Ferritin AM (04/07/2024 12:39 AM INTERACTIVE ART DIRECTOR) FERRITIN 275.0 30.0 - 400.0 ng/mL 04/07/2024 1:58 AM [facility] Blood BLOOD SPECIMEN / Unknown Butterfly / Unknown 04/07/2024 12:39 AM INTERACTIVE ART DIRECTOR 04/07/2024 1:05 AM [facility] us Parmjit Berrios MD CHEMISTRY Final Resul t [facility] [address] [place] [address], * (ABNORMAL) COMP METABOLIC PANEL (04/07/2024 12:39 AM INTERACTIVE ART DIRECTOR) SODIUM 131(L) 136 - 145 mmol/L 04/07/2024 1:30 AM [facility] POTASSIUM 3.8 3.5 - 5.1 mmol/L 04/07/2024 1:30 AM [facility] CHLORIDE 86(L) 98 - 107 mmol/L 04/07/2024 1:30 AM [facility] CO2,TOTAL 23 22 - 29 mmol/L 04/07/2024 1:30 AM [facility] ANION GAP 22(H) 5 - 18 04/07/2024 1:30 AM [facility] GLUCOSE 110(H) 70 - 99 mg/dL 04/07/2024 1:30 AM [facility] CALCIUM 9.1 8.8 - 10.4 mg/dL 04/07/2024 1:30 AM [facility] Comment: Reference ranges for this test were updated on 01/06/2024 to reflect our healthy population more accurately. Reference range changes are not retroactively applied to results, but previous results using the same methodology can be interpreted in the context of the new reference range. BUN 94(H) 8 - 23 mg/dL 04/07/2024 1:30 AM [facility] CREATININE 2.41(H) 0.70 - 1.20 mg/dL 04/07/2024 1:30 AM [facility] BUN/CREAT RATIO 39(H) 10 - 20 1:[address] [facility] eGFR 28(L) >90 mL/min/1. 73m2 04/07/2024 1:[address] [facility] Comment:As of 2021, eG FR is calculated by the CKD-EPI creatinine equation without race adjustment. eGFR can be influenced by muscle mass, exercise, and diet. The reported eGFR is an estimation only and is only applicable if the renal function is stable. ALBUMIN 3.8(L) 4.0 - 4.9 g/dL 04/07/2024 1:30 AM [facility] PROTEIN,TOTAL 6.4 6.0 - 8.0 g/dL 04/07/2024 1:[address] [facility] BILIRUBIN,TOTAL 0.7 0.0 - 1.2 mg/dL 04/07/2024 1:[address] [facility] ALK PHOSPHATASE 96 40 - 129 IU/L 04/07/2024 1:[address] [facility] ALT (SGPT) 9(L) 10 - 50 IU/L 04/07/2024 1:[address] [facility] AST (SGOT) 22 10 - 50 IU/L 04/07/2024 1:[address] [facility] Blood BLOOD SPECIMEN / Unknown Butterfly / Unknown 04/07/2024 12:39 AM INTERACTIVE ART DIRECTOR 04/07/2024 1:05 AM INTERACTIVE ART DIRECTOR us Guille Choi NP CHEMISTRY Final Result [facility] [address] [place] [address], [place] * XR CHEST 1 VIEW PORTABLE (04/06/2024 8:19 PM INTERACTIVE ART DIRECTOR) Anatomical Region Laterality Modality HEART, THORAX, CHEST Computed Ra diography 04/06/2024 8:19 PM INTERACTIVE ART DIRECTOR Impressions 04/06/2024 8:48 PM INTERACTIVE ART DIRECTOR Stable size of cardiomediastinal silhouette with pacemaker/AICD leads overlying the right atrium and right ventricle. Likely pulmonary vascular congestion with subtle interstitial opacities in the lung bases, right greater than left, differential includes mild edema and atypical infectious/inflammatory process. No definite pleural effusion or pneumothorax. No acute bony abnormality. Narrative 04/06/2024 8:48 PM INTERACTIVE ART DIRECTOR For Patients: As a result of the Cures Act, medical imaging exams and procedure reports are released immediately into your electronic medical record. You may view this report before your referring provider. If you have questions, please contact your health care provider. EXAM: XR CHEST 1 VIEW PORTABLE LOCATION: [facility] DATE: 04/06/2024 INDICATION: Shortness of [...] XR CHEST 1 VIEW PORTABLE LOCATION: [facility] DATE: 04/06/2024 INDICATION: Shortness of [...] * (ABNORMAL) TROPONIN I (04/06/2024 7:53 PM INTERACTIVE ART DIRECTOR) Only the most recent of2 resultswithin the time period is included. TROPONIN I KELLI 0.043(HH) <0.030 ng/mL 04/06/2024 8:31 PM INTERACTIVE ART DIRECTOR [facility] Blood BLOOD SPECIMEN / Unknown Venipuncture / Unknown 04/06/2024 7:53 PM INTERACTIVE ART DIRECTOR 04/06/2024 7:59 PM INTERACTIVE ART DIRECTOR us John Ramirez MD CHEMISTRY Final Result [facility] [address] [place] [address], [place] [phone] * BEDSIDE US STUDY ARCHIVE (04/06/2024 3:07 PM INTERACTIVE ART DIRECTOR) Narrative Charly Monroe MD - 04/06/2024 3:07 PM INTERACTIVE ART DIRECTOR Jun Mar MD 04/06/2024 3:08 PM BEDSIDE [...] CBC WITH AUTO DIFFERENTIAL (04/06/2024 2:45 PM INTERACTIVE ART DIRECTOR) WHITE BLOOD COUNT 12.6 4.5 - 13.5 thou/cu mm 04/06/2024 3:10 PM [facility] RED BLOOD COUNT 4.39(L) 4.70 - 6.10 mil/cu mm 04/06/2024 3:10 PM [facility] HEMOGLOBIN 13.0(L) 13.5 - 17.5 g/dL 04/06/2024 3:10 PM [facility] HEMATOCRIT 39.5(L) 42.0 - 52.0 % 04/06/2024 3:10 PM [facility] MCV 90 80 - 94 fL 04/06/2024 3:10 PM [facility] MCH 29.6 27.0 - 31.0 pg 04/06/2024 3:10 PM [facility] MCHC 32.9(L) 33.0 - 36.0 g/dL 04/06/2024 3:10 PM [facility] RDW 17.4(H) 11.6 - 14.8 % 04/06/2024 3:10 PM [facility] PLATELET COUNT 341 130 - 400 thou/cu mm 04/06/2024 3:10 PM [facility] MPV 10.6(H) 7.4 - 10.4 fL 04/06/2024 3:10 PM [facility] NRBC 0.0 0.0 - 0.9 % 04/06/2024 3:10 PM [facility] % NEUT 85.1(H) 37.0 - 80.0 % 04/06/2024 3:10 PM [facility] % LYMPH 5.6(L) 10.0 - 50.0 % 04/06/2024 3:10 PM [facility] % MONO 6.8 0.0 - 12.0 % 04/06/2024 3:10 PM [facility] % EOS 0.6 0.0 - 7.0 % 04/06/2024 3:10 PM [facility] % BASO 0.4 0.0 - 2.5 % 04/06/2024 3:10 PM [facility] % IMMATURE GRAN (METAS,MYELOS,WI OS) 1.5 % 04/06/2024 3:10 PM [facility] ABSOLUTE NEUTROPHILS 10.7(H) 2.0 - 6.9 thou/cu mm 04/06/2024 3:10 PM [facility] ABSOLUTE LYMPHOCYTES 0.7 0.6 - 3.4 thou/cu mm 04/06/2024 3:10 PM [facility] ABSOLUTE MONOCYTES 0.9 0.0 - 1.0 thou/cu mm 04/06/2024 3:10 PM [facility] ABSOLUTE EOSINOPHILS 0.1 <=0.7 thou/cu mm 04/06/2024 3:10 PM [facility] ABSOLUTE BASOPHILS 0.1 <0.2 thou/cu mm 04/06/2024 3:10 PM [facility] ABSOLUTE IMMATURE GRANULOCYTES(MET ,MYELOS,PROS) 0.2 <0.3 thou/cu mm 04/06/2024 3:10 PM INTERACTIVE ART DIRECTOR [facility] Blood BLOOD SPECIMEN / Unknown IV Start / Unknown 04/06/2024 2:45 PM INTERACTIVE ART DIRECTOR 04/06/2024 3:00 PM INTERACTIVE ART DIRECTOR us Jun Mar MD HEMATOLOGY Final Result Performing Organization Address [facility] Co de Phone Number [place] [address] [place] [address], * EXTRA TUBE GOLD/SST (04/06/2024 2:45 PM INTERACTIVE ART DIRECTOR) Blood BLOOD SPECIMEN / Unknown Extra Tube / Unknown 04/06/2024 2:45 PM INTERACTIVE ART DIRECTOR 04/06/2024 4:05 PM INTERACTIVE ART DIRECTOR us Charly Monroe MD LABORATORY Final Res ult Performing Organization Address [facility] Co de Phone Number [place] [address] [place] [address], * TSH WITH REFLEX (04/06/2024 2:45 PM INTERACTIVE ART DIRECTOR) TSH 3.73 0.35 - 4.94 uIU/mL 04/06/2024 3:43 PM INTERACTIVE ART DIRECTOR [facility] Blood BLOOD SPECIMEN / Unknown IV Start / Unknown 04/06/2024 2:45 PM INTERACTIVE ART DIRECTOR 04/06/2024 3:00 PM INTERACTIVE ART DIRECTOR us Jun Mar MD CHEMISTRY Final Result Performing Organization Address [facility] [[email or web address]] de Phone Number [place] [address] [place] [address], * (ABNORMAL) BRAIN NATRIURETIC PEPTIDE (04/06/2024 2:45 PM INTERACTIVE ART DIRECTOR) BRAIN JEANCARLOS PEPTIDE 993(H) <100 pg/mL 04/06/2024 3:30 PM INTERACTIVE ART DIRECTOR [facility] Blood BLOOD SPECIMEN / Unknown IV Start / Unknown 04/06/2024 2:45 PM INTERACTIVE ART DIRECTOR 04/06/2024 3:05 PM INTERACTIVE ART DIRECTOR us Charly Monroe MD CHEMISTRY Final Res ult [facility] [address] [place] [address], [place] [phone] * SLIDE REVIEW (04/06/2024 2:45 PM INTERACTIVE ART DIRECTOR) POIKILOCYTOSIS 1+ 04/06/2024 3:35 PM INTERACTIVE ART DIRECTOR [facility] POLYCHROMASIA 1+ 04/06/2024 3:35 PM INTERACTIVE ART DIRECTOR [facility] MORPHOLOGY COMMENT Ovalocytes Present 04/06/2024 3:35 PM INTERACTIVE ART DIRECTOR [facility] MORPHOLOGY COMMENT Stomatocytes Present 04/06/2024 3:35 PM INTERACTIVE ART DIRECTOR [facility] PLT COMMENT Adequate 04/06/2024 3:35 PM INTERACTIVE ART DIRECTOR [facility] Blood BLOOD SPECIMEN / Unknown IV Start / Unknown 04/06/2024 2:45 PM INTERACTIVE ART DIRECTOR 04/06/2024 3:00 PM INTERACTIVE ART DIRECTOR us Jun Mar MD LABORATORY Final Result Performing Organization Address City/[facility]/ZIP Co de Phone Number [facility] [address] [place] [address], [place] [phone] * (ABNORMAL) Heparin Level ( aka XA) (04/06/2024 2:45 PM INTERACTIVE ART DIRECTOR) HEPARIN LEVEL <0.04(LL) 0.32 - 0.63 U/mL 04/06/2024 7:11 PM INTERACTIVE ART DIRECTOR [facility] Blood BLOOD SPECIMEN / Unknown IV Start / Unknown 04/06/2024 2:45 PM INTERACTIVE ART DIRECTOR 04/06/2024 6:09 PM INTERACTIVE ART DIRECTOR us Jun Mar MD HEMATOLOGY Final Result [facility] [address] [place] [address], [place] [phone] * APTT (04/06/2024 2:45 PM INTERACTIVE ART DIRECTOR) APTT 28 25 - 37 sec 04/06/2024 6:20 PM INTERACTIVE ART DIRECTOR [facility] Blood BLOOD SPECIMEN / Unknown IV Start / Unknown 04/06/2024 2:45 PM INTERACTIVE ART DIRECTOR 04/06/2024 6:09 PM INTERACTIVE ART DIRECTOR Narrative [facility] - 04/06/2024 6:20 PM INTERACTIVE ART DIRECTOR Therapeutic Range 64-83 seconds. us Jun Mar MD HEMATOLOGY Final Result [facility] [address] [place] [address], [place] [phone] * SCAN-CARDIAC STRIP (04/06/2024 12:00 AM INTERACTIVE ART DIRECTOR) Narrative 04/06/2024 12:00 AM INTERACTIVE ART DIRECTOR Ordered by an unspecified provider. us Other Clinical Staff OTHER Final Resul t * SCAN-CARDIAC STRIP (04/06/2024 12:00 AM INTERACTIVE ART DIRECTOR) Narrative 04/06/2024 12:00 AM INTERACTIVE ART DIRECTOR Ordered by an unspecified provider. us Other Clinical Staff OTHER Final Resul t * SCAN-CARDIAC STRIP (03/22/2024 12:00 AM INTERACTIVE ART DIRECTOR) Narrative 03/22/2024 12:00 AM INTERACTIVE ART DIRECTOR Ordered by an unspecified provider. us Other Clinical Staff OTHER Final Resul t * SCAN-CARDIAC STRIP (03/15/2024 12:00 AM INTERACTIVE ART DIRECTOR) Narrative 03/15/2024 12:00 AM INTERACTIVE ART DIRECTOR Ordered by an unspecified provider. us Other Clinical Staff OTHER Final Resul t * SCAN-CARDIAC STRIP (03/08/2024 12:00 AM INTERACTIVE ART DIRECTOR) Narrative 03/08/2024 12:00 AM INTERACTIVE ART DIRECTOR Ordered by an unspecified provider. us Other Clinical Staff OTHER Final Resul t * CT ABDOMEN PELVIS WO (01/16/2024 4:53 AM INTERACTIVE ART DIRECTOR) Anatomical Region Laterality Modality Abdomen, Pelvis, AORTA, LIVER, SPLEEN Computed Tomography 01/16/2024 4:53 AM INTERACTIVE ART DIRECTOR Impressions 01/16/2024 5:21 AM INTERACTIVE ART DIRECTOR 1. No obstructing ureteral or bladder calculi. [...] fat-containing umbilical hernia. Narrative 01/16/2024 5:21 AM INTERACTIVE ART DIRECTOR For Patients: As a result of the Cures Act, medical imaging exams and procedure reports are released immediately into your electronic medical record. You may view this report before your referring provider. If you have questions, please contact your health care provider. EXAM: CT ABDOMEN PELVIS WO LOCATION: [facility] DATE: 01/16/2024 INDICATION: Abdominal pain, acute, nonlocalized. [...] provider. EXAM: CT ABDOMEN PELVIS WO LOCATION: [facility] DATE: 01/16/2024 INDICATION: Abdominal pain, acute, nonlocalized. [...] 105 <=200 mg/dL 11/20/2023 3:06 PM CDT [facility] TRIGLYCERIDES 103 <150 mg/dL 11/20/2023 3:06 PM CDT [facility] HDL CHOLESTEROL 33(L) >40 mg/dL 3:06 PM CDT [facility] CHOL/HDL RATIO 3.18 <=4.00 11/20/2023 3:06 PM CDT [facility] LDL CHOLESTEROL 51 <=130 mg/dL 11/20/2023 3:06 PM CDT [facility] PATIENT STATUS NON-FASTI NG 11/20/2023 3:06 PM CDT [facility] Blood BLOOD SPECIMEN / Unknown Venipuncture / Unknown 11/20/2023 1:57 PM CDT 11/20/2023 2:09 PM CDT Shana Lozano DO CHEMISTRY Final Result [facility] [address] [place] [address], * CT CHEST SCREENING LOW DOSE WO [...] LUNG CANCER SCREENING CT CHEST LOCATION: [facility] DATE: 08/07/2023 INDICATION: Lung cancer [...] LUNG CANCER SCREENING CT CHEST LOCATION: [facility] DATE: 08/07/2023 INDICATION: Lung cancer [...] screening with low-dose CTchest in 12 months. Bulu Box [place] DO CT Final Result * ANTI HCV (06/11/2022 2:16 PM CDT) HEPATITIS C ANTIBODY Non-Reacti ve Non-React lisa 06/11/2022 4:14 PM CDT [facility] Comment:Antibodies to HCV no t detected; does not exclude the possibility of exposure to HCV. Blood BLOOD SPECIMEN / Unknown Venipuncture / Unknown 06/11/2022 2:16 PM CDT 06/11/2022 2:17 PM CDT Oration L Skarda DO SEND OUTS Final Result [facility] [address] [place] [address], [place] [phone] * HM COLONOSCOPY (08/14/2011) COLONOSCOPY Done [facility] 08/14/2011 us Doctor Unknown HEALTH MAINT RESULTS Final Resul t [facility] [address] [place] [address], [place] [phone] from Last 3 Months or Most Recently Relevant to Health Maintenance Insurance [facility] DUAL COMPLETE MEDICARE PART A HB ONLY [facility] MR MEDICARE PART B HB ONLY [facility] Advance Directives Documents on File Type Date Recorded 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
[2024-06-03 18:30] LABS: Basophils Absolute Auto 0.03 K/uL (0.00-0.30); Basophils Percent Auto 0.3 % (0.0-3.0); Eosinophils Absolute Auto 0.07 K/uL (0.00-0.50); Eosinophils Percent Auto 0.7 % (0.0-7.0); Hematocrit* 36.6 % (37.0-53.0); Hemoglobin* 11.2 gm/dL (13.5-17.5); Immature Granulocytes Abs Auto 0.05 K/uL (0.00-0.30); Immature Granulocytes Pct Auto 0.5 %; Lymphocytes Percent Auto 5.5 % (20-44); Mean Corpuscular HGB Conc 31 gm/dL (32-36); Mean Corpuscular Hemoglobin 27 pg (26-34); Mean Corpuscular Volume 87 fL (80-100); Monocytes Percent Auto 6.4 % (0.0-11.0); Neutrophils Percent Auto 86.6 % (42.0-72.0); Platelet Count* 163 K/uL (140-440); RDW Coefficient of Variation % 20.7 % (11.5-15.5); White Blood Count* 9.55 K/uL (4.50-11.00)
[2024-06-03 18:46] LABS: Slide Review Reflex No
[2024-06-03 18:49] LABS: Chloride* 96 mmol/L (96-114); Potassium* 3.6 mmol/L (3.6-5.1); Sodium* 132 mmol/L (135-149)
[2024-06-03 18:52] LABS: Anion Gap 14 mEq/L (7-15); Blood Urea Nitrogen* 45 mg/dL (7-30); Carbon Dioxide* 22 mmol/L (20-32); Creatinine* 2.6 mg/dL (0.5-1.5); Est. Creatinine Clearance* 24.85; Estimated Glomerular Filt Rate 25 ml/min; Uric Acid* 12.7 mg/dL (2.2-8.4)
[2024-06-03 18:53] LABS: Calcium* 8.5 mg/dL (8.4-10.6); Glucose* 99 mg/dL (60-115)
[2024-06-03 18:55] LABS: C Reactive Protein* 0.9 mg/dL (0.5-1.0)
[2024-06-03] MEDS: predniSONE 20 MG TABLET 40 MG PO (19:19)
[2024-06-03 19:30] VITALS: PULSE 66
[2024-06-03 19:44] VITALS: BP 112/64; PULSE 98; RESP 16; TEMP 36.3
== END 2024-06-03 19:48 | disposition home or self-care (01) ==
PROVIDERS: Emergency Provider Student in an Organized Health Care Education/Training Program; PCP Family Medicine
DX: M10.9 Gout, unspecified (principal); R60.0 Localized edema
CPT/HCPCS: 36415; 73630; 80048; 84550; 85025; 85610; 86140; 99284; J7512

== ENCOUNTER 2024-06-09 02:02 | Outpatient (CLI) | payer MEDICARE, SELFPAY | END 2024-06-09 02:03 | disposition home or self-care (01) | LOC: AMB 06-10 08:33 | PROVIDERS: PCP Family Medicine; Visit Provider Family Medicine | DX: R42 Dizziness and giddiness (principal); R53.1 Weakness; R11.2 Nausea with vomiting, unspecified | CPT/HCPCS: A0425; A0427 ==

== ENCOUNTER 2024-06-09 02:47 | Inpatient (IN) | payer MEDICARE, SELFPAY ==
[2024-06-09] VITALS (14 sets, daily range): BP systolic 92–119; BP diastolic 67–88; PULSE 67–98; RESP 11–26; TEMP 35.6–36.8; O2SAT 95–99; BMI 26.5; BMI 26.8
--- OUTSIDE RECORDS SUMMARY | 2024-06-09 02:50 | XMS_ITS | Clinical Summary ---
Author Organization [employer] [facility] Address [address] [place] [id number] Care Team Providers Care Film Vault Supervisor Name Role Phone [facility] [place] Unavailable Sadi Paul MD Primary Care Provider [facility] [place] Unavailable [phone] Allergies Active Allergy Reactions Criticality Noted Date [...] for Vertigo. 30 Tablet 1 022 Active Additional Information Patient not taking.Informant: Patient's Recall, Reported on 06/08/2024 acetaminophen (TYLENOL EXTRA STRGTH) 500 mg tabletIndications:Pain [...] Tablet 024 Active Additional Information Patient not taking.Reason: See Comment (Patient states not taking), Informant: Patient's Recall, Reported on 06/08/2024 magnesium oxide 250 mg magnesium tabletIndications:Muscl e cramps Take 1 Tablet (250 mg) by mouth once daily. 30 Tablet 11 024 Active Additional Information Patient not taking.Reason: See Comment (Patient states not taking), Informant: Patient's Recall, Reported on 06/08/2024 triamcinolone (ARISTOCORT; KENALOG) 0.1 % creamIndications:prurit us [...] meals. 90 Tablet 04/21/19 25 2:46 PM CYBER ANALYST 025 Active pramipexole (MIRAPEX) 0.25 mg tabletIndications:Restl ess leg Take one-half Tablet (0.125 mg) by mouth at bedtime. 30 Tablet 04/21/19 25 2:46 PM CYBER ANALYST 025 Active sennosides (SENNA) 8.6 mg tabletIndications:Other constipation Take 1 to 2 Tablets (8.6-17.2 mg) by mouth two times daily. 60 Tablet 04/21/19 25 2:46 PM CYBER ANALYST 025 Active Additional Information Patient not taking.Reported on 06/08/2024 warfarin (COUMADIN) 1 mg tabletIndications:Atria l fibrillation with rapid ventricular response (HC) Take 1 Tablet (1 mg) by mouth once daily. Take 1mg daily. INR check on Sunday 04/23. Further dosing instructions pending INR value at that time. 30 Tablet 02/19/20 25 2:46 PM CYBER ANALYST 025 Active midodrine (PROAMATINE) 2.5 mg tabletIndications:Hypot ension, unspecified hypotension type Take 1 tablet (2.5mg) by mouth three times daily (at 8AM, 12PM, and 4PM) 90 Tablet 04/21/19 2:46 PM CYBER ANALYST 025 Active amiodarone (CORDARONE) 200 mg tabletIndications:Atria l fibrillation with rapid ventricular response (HC) Take 1 tablet (200 mg) by mouth twice daily. Then on 05/02/24 decrease to 200 mg once daily 90 Tablet 1 04/21/19 2:46 PM CYBER ANALYST 025 Active torsemide (DEMADEX) 20 mg tabletIndications:Acute on chronic systolic and diastolic heart failure, NYHA class 3 (HC) Take one tablet by mouth as needed for weight gain of 3 lb in 1 day or 5 lb in 1 week 30 Tablet 2 04/21/19 5:30 PM CYBER ANALYST 025 Active atorvastatin (LIPITOR) 40 mg tabletIndications:Pure hypercholesterolemia Take 1 Tablet (40 mg) by mouth once daily. 30 Tablet 3 04/21/19 5:30 PM CYBER ANALYST 025 Active WalkerIndications:CHF (congestive heart failure), NYHA [...] needed for Nausea/Vomiting. 10 Tablet 025 Active predniSONE 20 mg tabletIndications:acute gouty arthritis Take 40 mg by mouth once daily. Indications: acute inflammation of the joints due to gout attack 025 2024 Active Hospital, Clinic, or Other Facility Administered Medication Ordered Dose Route Frequency Start Date End Date Status cyanocobalamin (VITAMIN B12) 1,000 mcg/mL injection 1,000 mcgIndications:B12 deficiency 1000 mcg IM Q 4 WEEKS (28 days) 12/22/2023 11/21/2024 Active Active Problems Problem Noted Date Diagnosed Date Encounter for admission to hospice care 05/27/19 25 Overview (05/26/2024): HOSPICE CONSULT ONLY. /[facility] Verification of Hospice Diagnosis [...] pulmonary emphysema. He was hospitalized 04/06- at [facility], with atrial fibrillation rapid ventricular response and acutely decompensated systolic heart failure, S/P transesophogeal echocardiography direct current cardioversion on 04/12, cardiogenic shock and he was started on dobutamine. He did not tolerate dobutamine wean on 04/16 and is inotrope dependent. Dobutamine restarted at 1.5 mcg/kg/min on 04/19. He had recent Cardiology follow up 3 [facility] with Dr. Lauro Kendall MD. He is followed by Home Care. Braxton Alcala MD [facility] Vasyl Alcala MD .................... [...] and unspecified hyperlipidemia 05/26/2013 Coronary atherosclerosis of [place] coronary arianne ry 05/26/2013 Other B-complex deficiencies [...] Coronary atherosclerosis of unspecified type of vessel, [place] or graft 02/11/2013 03/17/2017 Chest pain, unspecified 01/19/201303/03 Acute bronchitis 06/01/2012 03/17/2017 Acute conjunctivitis, unspecified 05/01/2012 03/17/2017 Other and unspecified noninf ectious gastroenteritis and colitis(558.9) 08/28/201103/17 Leukocytosis, unspecified 02/14/2011 Blood in stool 02/14/2011 03/17/2017 Acute gastritis without mention of hemorrhage 02/12/2003/17/2017 Acute on chronic systolic heart failure 05/27/2024 Encounters Date Type Department Care Team Description 06/10/19 Nurse Triage [facility] [address] [place] [address] Sadi Paul MD Dizzy 06/09/19 8:30 AM CDT Office Visit [facility] [id number] [place] [address] [address] [place] [address] Lauro Kendall MD Follow Up (3M FOLLOW UP/BMP and Pro-BNP LABS DONE with [facility] //PT STATES HE HAS CAR SICKNESS BUT NO CARDIAC SX ) 06/09/19 Travel 06/08/19 2:45 PM CDT Home Care Visit [facility] [address] [place] [phone] Joceline Edouard SMALL STOCK FACER - HOME VISIT 06/08/19 8:30 AM CDT Home Care Visit [facility] [address] [place] [phone] Valentina Riley RN SN - LONG VISIT (>90 MINUTES) 06/06/19 Nurse Triage [facility] [address] [place] [address] Sadi Paul MD Fall 06/05/19 1:00 PM CDT Home Care Visit [facility] [address] [place] [phone] Valentina Riley RN SN - LONG VISIT (>90 MINUTES) 06/05/19 9:00 AM CDT Home Care Visit [facility] [id number] [place], [place] [address], [place] [address] Nicolas Sanz, PT PT - HOME VISIT 06/05/19 25 Home Care Visit [facility] [address] [place] [phone] Valentina Riley, AMELIA CARE COORDINATION 06/05/19 25 Travel 06/04/19 25 2:45 PM CDT Home Care Visit [facility] [address] [place] [phone] Joceline Edouard SMALL STOCK FACER - HOME VISIT 06/03/19 25 9:30 AM CDT Home Care Visit [facility] [address] [place] [phone] Rowena Pulido OT OT - HOME VISIT 06/02/19 25 8:30 AM CDT Home Care Visit [facility] [address] [place] [phone] Valentina Riley RN SN - HOME VISIT 06/02/19 25 Orders Only [facility] [address] [place] [address] Lauro Kendall MD Lab 06/02/19 25 Orders Only [facility] [address], [place] [address] Lauro Kendall MD Lab (Home care) 06/01/19 25 2:30 PM CDT Home Care Visit [facility] [address] [place] [phone] Joceline Edouard SMALL STOCK FACER - HOME VISIT 05/29/19 25 1:00 PM CDT Home Care Visit [facility] [address] [place] [phone] Valentina Riley, AMELIA SN - LONG VISIT (>90 MINUTES) 05/29/19 25 10:30 AM CDT Home Care Visit [facility] [address] [place] [phone] Nicolas Sanz, PT PT - HOME VISIT 05/29/19 Home Care Visit [facility] [address] [place] [address], [place] [address] Nicolas Sanz, PT CARE COORDINATION 05/29/19 Travel 05/28/19 2:15 PM CDT Home Care Visit [facility] [address] [place] [address], [place] [address] Joceline Edouard SMALL STOCK FACER - HOME VISIT 05/28/19 11:30 AM CDT Home Care Visit [facility] [address] [place] [address], [place] [address] Rowena Pulido, SIRIA OT - REASSESSMENT 05/27/19 9:30 AM CDT Home Care Visit [facility] [address] [place] [address], [place] [address] Amparo Hensley, CRISIS INTERVENTION COUNSELOR INFORMATIONAL VISIT 05/27/19 Travel 05/26/19 Home Care Visit [facility] [address] [place] [address], [place] [address] Tiffany Fang, OT PARIKH SUPERVISION 05/26/19 Transcribe Orders [facility] [address] [place] [address], [place] [phone] [facility] [place] 05/25/19 2:30 PM CDT Home Care Visit [facility] [address] [place] [address], [place] [address] Joceline Edourad SMALL STOCK FACER - HOME VISIT 05/22/19 1:15 PM CDT Home Care Visit [facility] [address] [place] [address], [place] [phone] Nicolas Sanz, PT PT - REASSESSMENT 05/22/19 11:30 AM CDT Home Care Visit [facility] [address] [place] [address], [place] [phone] Valentina Riley, RN SN - LONG VISIT (>90 MINUTES) 05/22/19 Home Care Visit [facility] [address] [place] [address], [place] [phone] Nereida Dominguez LISW RESIDENTIAL NURSE - INITIAL ASSESSMENT 05/22/19 Anticoagulation (warfarin) [facility] [address] [place] [address] Shana Lozano, DO Anticoagulation 05/21/19 2:45 PM CDT Home Care Visit [facility] [address] [place] [address], [place] [address] Joceline Edouard SMALL STOCK FACER - HOME VISIT 05/20/19 25 Home Care Visit [facility] [address] [place] [address], [place] [phone] Valentina Riley, AMELIA CARE COORDINATION 05/20/19 25 Home Care Visit [facility] [address] [place] [phone] Tiffany Fang, OT PARIKH SUPERVISION 05/19/19 25 Home Care Visit [facility] [address] [place] [phone] Edis Camargo, COTTON GINNER CARE COORDINATION 05/18/19 25 Home Care Visit [facility] [address] [place] [phone] Valentina Riley, WOODS BOSS NOTE 05/15/19 25 Travel 05/15/19 Home Care Visit [facility] [address] [place] [phone] Monisha Yo, PARIKH CARE COORDINATION 05/14/19 4:00 PM CDT Home Care Visit [facility] [address] [place] [phone] Joceline Edouard SMALL STOCK FACER - HOME VISIT 05/14/19 25 1:00 PM CDT Home Care Visit [facility] [address] [place] [phone] Valentina Riley, AMELIA SN - LONG VISIT (>90 MINUTES) 05/14/19 25 Telephone [facility] [address] [place] [address], [place] [address] Valentina Riley, tip stitcher 05/12/19 10:30 AM CDT Home Care Visit [facility] [address] [facility] [place] [address] Nicolas Sanz, PT PT - HOME VISIT 05/12/19 Home Care Visit [facility] [address] [place] [phone] Edis Camargo, COTTON GINNER CARE COORDINATION 05/12/19 Travel 05/11/19 3:00 PM CDT Home Care Visit [facility] [address] [place] [phone] Joceline Edouard SMALL STOCK FACER - HOME VISIT 05/11/19 11:00 AM CDT Home Care Visit [facility] [address] [place] [phone] Valentina Riley RN SN - HOME VISIT 05/10/19 Nurse Triage [facility] [address] [place] [address] Shana Lozano, DO Home Care; Diarrhea 05/08/19 4:00 PM CYBER ANALYST Home Care Visit [facility] [address] [place] [phone] Joceline Edouard SMALL STOCK FACER - HOME VISIT 05/08/19 10:30 AM CYBER ANALYST Home Care Visit [facility] [address] [place] [phone] Nicolas Sanz, PT PT - HOME VISIT 05/07/19 1:30 PM CYBER ANALYST Home Care Visit [facility] [address] [place] [phone] Valentina Riley, RN SN - LONG VISIT (>90 MINUTES) 05/07/19 Telephone [facility] [address], [place] [address] Valentina Riley, tip stitcher 05/05/19 1:30 PM CYBER ANALYST Home Care Visit [facility] [address] [place] [address] Tiffany Fang OT OT - HOME VISIT 05/05/19 10:30 AM CYBER ANALYST Home Care Visit [facility] [address] [facility] [place] [address] Nicolas Sanz, PT PT - HOME VISIT 05/05/19 9:30 AM CYBER ANALYST Home Care Visit [facility] [address] [place] [phone] Joceline Edouard SMALL STOCK FACER - HOME VISIT 05/05/19 Travel 05/04/19 1:00 PM CYBER ANALYST Home Care Visit [facility] [address] [place] [phone] Valentina Riley, AMELIA SN - LONG VISIT (>90 MINUTES) 05/04/19 8:30 AM CYBER ANALYST Office Visit [address] [place] [address] Lauro Kendall MD Follow Up (POST HOSPITAL FOLLOW UP. LABS DONE PRIOR AT HOME HEALTH CARE./PT states feeling OK/no cardiac symptoms today /Establish care ) 05/04/19 Travel 04/30/19 2:30 PM CYBER ANALYST Home Care Visit [facility] [address] [place] [phone] Nicolas Sanz, PT PT - HOME VISIT 04/30/[address] [address] Shana Lozano, Weight (Weight gain) 04/30/19 Travel 04/29/19 12:30 PM CYBER ANALYST Home Care Visit [facility] [address] [place] [phone] Valentina Riley, AMELIA SN - LONG VISIT (>90 MINUTES) 04/29/19 Home Care Visit [facility] [address] [place] [phone] Nicolas Sanz, PT CARE COORDINATION 04/28/19 3:00 PM CYBER ANALYST Home Care Visit [facility] [address] [facility] [place] [address] Nicolas Sanz, PT PT - INITIAL ASSESSMENT 04/28/19 9:00 AM CYBER ANALYST Home Care Visit [facility] [address] [facility] [place] [address] Anabella Rico, SMALL KICK PRESS OPERATOR SMALL KICK PRESS OPERATOR - HOME VISIT 04/28/[address] [address] Shana Lozano, Questions (Verbal orders) 04/28/19 Travel 04/27/19 1:00 PM CYBER ANALYST Home Care Visit [facility] [address] [facility] [place] [address] Tiffany Fagn, OT OT - INITIAL ASSESSMENT 04/27/19 11:30 AM CYBER ANALYST Anticoagulation (warfarin) [address] [address] Anticoagulation 04/27/19 9:40 AM CYBER ANALYST Office Visit [address] [address] Shana Lozano DO Hospital F/U (04/06/2024-04/21/2024 Afib with RVR) 04/27/19 Travel 04/26/[address] [address] Ignacio Willett MD Care Coordination (EP called and spoke with patient who reports that he moved in with his daughter which is 100 [address] from [facility]. EP confirmed with patient that he would be discharged from CR at [facility]. Pt confirmed he would check out places near for CR as needed. ) 04/26/19 Orders Only [address] [address] Shana Lozano, DO <No scans attached> 02/24/20 25 Orders Only [facility] [address] [place] [address] Shana Lozano, DO <No scans attached> 04/25/19 25 1:00 PM CYBER ANALYST Home Care Visit [facility] [address] [facility] [place] [address] Staci Lara RN SN - HOME VISIT 04/23/19 25 1:45 PM CYBER ANALYST Home Care Visit [facility] [address] [place] [address] Joceline Edouard SMALL STOCK FACER - HOME VISIT 04/23/19 25 1:00 PM CYBER ANALYST Home Care Visit [facility] [address] [place] [phone] Valentina Riley, AMELIA SN - LONG VISIT (>90 MINUTES) 04/23/19 25 9:00 AM CYBER ANALYST Anticoagulation (warfarin) [facility] [address] [place] [address] Anticoagulation 04/23/19 25 Orders Only [facility] [address] [place] [address] Shana Lozano, DO Lab 04/23/19 25 Orders Only [facility] [address] [place] [address] Shana Lozano, DO Lab (Home care) 04/23/19 25 Orders Only [facility] [address] [place] [address] Abi Valdovinos, FRANKY <No scans attached> 04/23/19 25 Travel 04/22/19 25 1:00 PM CYBER ANALYST Home Care Visit [facility] [address] [place] [phone] Valentina Riley, AMELIA SN IV - START OF CARE 04/22/19 25 Plan of Care Documentation [facility] [address] [place] [phone] 04/22/19 25 Telephone [facility] [address] [place] [phone] Valentina Riley, tip stitcher 04/22/19 25 Telephone [facility] [address] [place] [address] Shana Lozano, DO Outside Order (WALKER / PORTABLE URINAL ) 04/22/19 25 Home Care Visit [facility] [address] [place] [phone] Valentina Riley, AMELIA CARE COORDINATION 04/22/[address] [facility] [address] [place] [address] Ignacio Willett MD Care Coordination (EP attempted phone contact with patient to touch base regarding cardiac rehab plan. No answer and VM is full. EP to follow-up as needed. ) 04/21/19 25 Telephone [facility] [address] [place] [address] Shana Lozano, Anticoagulation 04/19/19 [address] [address] Shana Lozano, Questions (Home care orders ) 04/17/19 [address] [address] Igancio Willett MD Refill Request (Isosorbide Mononitrate) 04/12/19 25 10:26 AM CYBER ANALYST Anesthesia Event [facility] [address] [place] [address] Gerardo Garza MD Schlatter, Charles Patrick, BRICK EXTRUDER OPERATOR 04/08/19 25 12:21 PM CYBER ANALYST Anesthesia Event [facility] [address] [place] [address] Leonardo Campbell MD Reiter, Kyle, BRICK EXTRUDER OPERATOR 04/08/19 25 11:26 AM CYBER ANALYST - 04/08/19 25 12:12 PM CYBER ANALYST Surgery [facility] [address] [place] [address] Chepe Francis MD ESOPHAGOGASTRODUODENOSCOPY WITH GASTRIC BIOPSY 04/06/19 11:21 PM CYBER ANALYST - 04/21/19 5:55 PM CYBER ANALYST Hospital Encounter [facility] [address] [place], [place] [id number] [facility], [facility] General Medicine [facility], [facility], MD Ulysses Boles, MD [...] Discharge Disposition: Home Health 04/06/19 2:41 PM CYBER ANALYST - 04/06/19 10:17 PM CYBER ANALYST Emergency [address] [address] Charly Monroe MD Binder, Jacob A, MD Atrial fibrillation, unspecified type (HC) (Primary Dx); Hypotension, unspecified hypotension type; Lightheadedness; DAVID (acute kidney injury) Discharge Disposition: Short Term/PPS Hosp 04/06/19 25 1:56 PM CYBER ANALYST - 04/06/19 25 2:40 PM CYBER ANALYST Hospital Encounter [address] [address] Ignacio Willett MD 04/06/19 Telephone [facility] [address] [place] [address] Lukasz Bright MD 04/06/19 Travel 04/05/19 Telephone [facility] [address] [place] [address] Ignacio Willett MD Atrial Fibrillation 03/30/19 25 1:47 PM CYBER ANALYST - 03/30/19 25 11:59 PM CYBER ANALYST Hospital Encounter [address] [address] Ignacio Willett MD 03/30/19 25 Travel 03/24/19 25 1:00 PM CYBER ANALYST - 03/24/19 11:59 PM CYBER ANALYST Hospital Encounter [address] [address] Ignacio Willett MD 03/24/19 25 Travel 03/22/19 25 1:00 PM CYBER ANALYST - 03/22/19 25 11:59 PM CYBER ANALYST Hospital Encounter [address] [address] Ignacio Willett MD 03/22/19 25 Travel 03/15/19 25 12:50 PM CYBER ANALYST - 03/15/19 11:59 PM CYBER ANALYST Hospital Encounter [address] [address] Ignacio Willett MD 03/15/19 25 Travel from Last 3 Months Immunizations [...] on file Legal Sex Male 5:26 PM CYBER ANALYST Gender Identity Not on file Sexual Orientation Not on file Obstetrics History Last Filed Vital Signs Vital Sign Reading Time Taken Comments Blood Pressure 108/80 06/08/2024 8:35 AM CDT Pulse 70 06/08/2024 8:35 AM CDT Temperature 36.8 C (98.2 F) 06/07/2024 8:42 AM CDT Respiratory Rate 20 06/07/2024 8:42 AM CDT Oxygen Saturation 93% 06/08/2024 8:35 AM CDT Inhaled Oxygen Concentration - - Weight 79.4 kg (175 lb) 06/08/2024 8:35 AM CDT Height 175.3 cm (5' 9) 06/08/2024 8:35 AM CDT Body Mass Index 25.84 06/08/2024 8:35 AM CDT Plan of Treatment Upcoming Encounters Date Type Department Care Team (Late st Contact Info) Description 06/09/2024 4:00 PM CDT Home Care Visit [address] [phone] Monisha Yo COTA [address] [place] [address] 06/10/2024 11:45 AM CDT Home Care Visit [facility] [id number] [place] [phone] Joceline Edouard 06/10/2024 1:00 PM CDT Home Care Visit [facility] [address] [place] [phone] Valentina Riley, AMELIA 06/11/2024 3:00 AM CDT Home Care Visit [facility] [address] [place] [phone] Nicolas Sanz, PT [address] [place] [address] 06/14/2024 10:00 AM CDT Home Care Visit [facility] [address] [place] [phone] Valentina Riley, AMELIA 06/14/2024 12:15 PM CDT Home Care Visit [facility] [address] [place] [phone] Joceline Edouard 06/16/2024 1:00 PM CDT Home Care Visit [facility] [address] [place] [phone] Valentina Riley, AMELIA 06/17/2024 5:00 AM CDT Home Care Visit [facility] [address] [place] [phone] Tiffany Fang, OT [address] [place] [address] 06/17/2024 12:45 PM CDT Home Care Visit [facility] [address] [place] [phone] Joceline Edouard 06/18/2024 3:00 AM CDT Home Care Visit [facility] [address] [place] [phone] Nicolas Sanz, PT [address] [place] [address] 06/18/2024 1:00 PM CDT Appointment [facility] [address] [place] [phone] Valentina Riley, RN Health Maintenance Due Date [...] wt on same day) for age 18+ 06/08/2025 06/08/2024, 05/03/2024, 04/27/2024, Additional history exists Lipids for age 45-75 [...] failure (HC) PROTIME-INR Routine 04/27/2024 10:26 AM CYBER ANALYST Ischemic cardiomyopathy PRO-BNP Routine 04/27/2024 10:26 AM CYBER ANALYST Acute systolic heart failure (HC) BASIC METABOLIC PANEL Routine 04/27/2024 10:26 AM CYBER ANALYST Acute systolic heart failure (HC) PROTIME-INR Routine 04/23/2024 1:40 PM CYBER ANALYST Atrial fibrillation with rapid ventricular response (HC) BASIC METABOLIC PANEL Early AM 04/21/2024 6:15 AM CYBER ANALYST HEPATIC FUNCTION PANEL Early AM 6:15 AM CYBER ANALYST PROTIME-INR Early AM 04/21/2024 6:15 AM CYBER ANALYST SCAN-CARDIAC STRIP 04/20/2024 11:03 PM CYBER ANALYST SCAN-CARDIAC STRIP 04/20/2024 7:32 PM CYBER ANALYST CBC W PLT NO DIFF Early AM 04/20/2024 7:04 AM CYBER ANALYST MAGNESIUM Early AM 04/20/2024 7:04 AM CYBER ANALYST BASIC METABOLIC PANEL Early AM 04/20/2024 7:04 AM CYBER ANALYST HEPATIC FUNCTION PANEL Early AM 7:04 AM CYBER ANALYST PROTIME-INR Early AM 04/20/2024 7:04 AM CYBER ANALYST O2 SATURATION,MEASURED Early AM 6:22 AM CYBER ANALYST SCAN-CARDIAC STRIP 04/19/2024 7:23 PM CYBER ANALYST SCAN-CARDIAC STRIP 04/19/2024 1:45 PM CYBER ANALYST MAGNESIUM Early AM 04/19/2024 6:57 AM CYBER ANALYST BASIC METABOLIC PANEL Early AM 04/19/2024 6:57 AM CYBER ANALYST HEMOGLOBIN Early AM 04/19/2024 6:57 AM CYBER ANALYST HEPATIC FUNCTION PANEL Early AM 6:57 AM CYBER ANALYST PROTIME-INR Early AM 04/19/2024 6:57 AM CYBER ANALYST O2 SATURATION,MEASURED Early AM 6:11 AM CYBER ANALYST SCAN-CARDIAC STRIP 04/18/2024 10:04 PM CYBER ANALYST SCAN-CARDIAC STRIP 04/18/2024 5:43 PM CYBER ANALYST MAGNESIUM Timed 04/18/2024 4:33 PM CYBER ANALYST POTASSIUM Timed 04/18/2024 12:45 PM CYBER ANALYST O2 SATURATION,MEASURED Early AM 8:11 AM CYBER ANALYST SCAN-CARDIAC STRIP 04/18/2024 7:46 AM CYBER ANALYST MAGNESIUM Early AM 04/18/2024 7:07 AM CYBER ANALYST BASIC METABOLIC PANEL Early AM 04/18/2024 7:07 AM CYBER ANALYST HEPATIC FUNCTION PANEL Early AM 7:07 AM CYBER ANALYST PROTIME-INR Early AM 04/18/2024 7:07 AM CYBER ANALYST SCAN-CARDIAC STRIP 04/17/2024 11:49 PM CYBER ANALYST SCAN-CARDIAC STRIP 04/17/2024 9:12 PM CYBER ANALYST SCAN-CARDIAC STRIP 04/17/2024 7:41 AM CYBER ANALYST MAGNESIUM RUSH 04/17/2024 7:26 AM CYBER ANALYST BASIC METABOLIC PANEL Early AM 04/17/2024 7:26 AM CYBER ANALYST HEPATIC FUNCTION PANEL Early AM 7:26 AM CYBER ANALYST PROTIME-INR Early AM 04/17/2024 7:26 AM CYBER ANALYST O2 SATURATION,MEASURED Early AM 6:35 AM CYBER ANALYST SCAN-CARDIAC STRIP 04/16/2024 11:25 PM CYBER ANALYST POTASSIUM Timed 04/16/2024 5:20 PM CYBER ANALYST O2 SATURATION,MEASURED Timed 3:06 PM CYBER ANALYST ALK PHOSPHATASE Today 04/16/2024 10:19 AM CYBER ANALYST BILIRUBIN DIRECT Today 04/16/2024 10:19 AM CYBER ANALYST ALT (SGPT) Today 04/16/2024 10:19 AM CYBER ANALYST AST (SGOT) Today 04/16/2024 10:19 AM CYBER ANALYST POTASSIUM Early AM 04/16/2024 10:19 AM CYBER ANALYST SCAN-CARDIAC STRIP 04/16/2024 8:23 AM CYBER ANALYST HEMOGLOBIN Early AM 04/16/2024 8:09 AM CYBER ANALYST HEPATIC FUNCTION PANEL Early AM 8:09 AM CYBER ANALYST CREATININE Early AM 04/16/2024 8:09 AM CYBER ANALYST SODIUM Early AM 04/16/2024 8:09 AM CYBER ANALYST MAGNESIUM Early AM 04/16/2024 8:09 AM CYBER ANALYST O2 SATURATION,MEASURED Early AM 6:31 AM CYBER ANALYST SCAN-CARDIAC STRIP 04/16/2024 1:03 AM CYBER ANALYST SCAN-CARDIAC STRIP 04/15/2024 8:37 PM CYBER ANALYST O2 SATURATION,MEASURED Today 6:58 PM CYBER ANALYST POTASSIUM Timed 04/15/2024 5:26 PM CYBER ANALYST EKG 12 LEAD RUSH 04/15/2024 12:31 PM CYBER ANALYST PROTIME-INR Early AM 04/15/2024 11:55 AM CYBER ANALYST POTASSIUM Timed 04/15/2024 11:55 AM CYBER ANALYST O2 SATURATION,MEASURED RUSH 8:07 AM CYBER ANALYST GLUCOSE METER Timed 04/15/2024 7:49 AM CYBER ANALYST SCAN-CARDIAC STRIP 04/15/2024 7:26 AM CYBER ANALYST HEMOGLOBIN Early AM 04/15/2024 6:38 AM CYBER ANALYST BASIC METABOLIC PANEL Early AM 04/15/2024 6:38 AM CYBER ANALYST MAGNESIUM Early AM 04/15/2024 6:38 AM CYBER ANALYST HEPATIC FUNCTION PANEL Early AM 6:38 AM CYBER ANALYST SCAN-CARDIAC STRIP 04/15/2024 3:06 AM CYBER ANALYST SCAN-CARDIAC STRIP 04/14/2024 9:43 PM CYBER ANALYST GLUCOSE METER Timed 04/14/2024 9:05 PM CYBER ANALYST GLUCOSE METER Timed 04/14/2024 4:15 PM CYBER ANALYST SCAN-CARDIAC STRIP 04/14/2024 3:27 PM CYBER ANALYST ICD ANALYSIS DUAL WITHOUT REPROGRAM Routine 04/14/2024 3:13 PM CYBER ANALYST EKG 12 LEAD RUSH 04/14/2024 1:25 PM CYBER ANALYST GLUCOSE METER Timed 04/14/2024 12:04 PM CYBER ANALYST POTASSIUM Timed 04/14/2024 11:49 AM CYBER ANALYST GLUCOSE METER Timed 04/14/2024 7:53 AM CYBER ANALYST SCAN-CARDIAC STRIP 04/14/2024 7:21 AM CYBER ANALYST URINALYSIS MICROSCOPIC Timed 6:29 AM CYBER ANALYST BASIC METABOLIC PANEL Early AM 04/14/2024 6:29 AM CYBER ANALYST MAGNESIUM Early AM 04/14/2024 6:29 AM CYBER ANALYST HEPATIC FUNCTION PANEL Early AM 6:29 AM CYBER ANALYST O2 SATURATION,MEASURED Timed 6:29 AM CYBER ANALYST UA W/ SEDIMENT EXAM REFLEXED PER CRITERIA Today 04/14/2024 6:29 AM CYBER ANALYST GLUCOSE METER Timed 04/13/2024 9:23 PM CYBER ANALYST SCAN-CARDIAC STRIP 04/13/2024 8:03 PM CYBER ANALYST PICC LINE Routine 04/13/2024 7:28 PM CYBER ANALYST INSERT PICC LINE Routine 04/13/2024 7:20 PM CYBER ANALYST GLUCOSE METER Timed 04/13/2024 5:07 PM CYBER ANALYST SCAN-CARDIAC STRIP 04/13/2024 3:12 PM CYBER ANALYST ICD ANALYSIS DUAL WITHOUT REPROGRAM Routine 04/13/2024 1:57 PM CYBER ANALYST EKG 12 LEAD Today 04/13/2024 8:25 AM CYBER ANALYST GLUCOSE METER Timed 04/13/2024 7:41 AM CYBER ANALYST SCAN-CARDIAC STRIP 04/13/2024 7:35 AM CYBER ANALYST HEPATIC FUNCTION PANEL Early AM 6:43 AM CYBER ANALYST HEMOGLOBIN Early AM 04/13/2024 6:43 AM CYBER ANALYST BASIC METABOLIC PANEL Early AM 04/13/2024 6:43 AM CYBER ANALYST GLUCOSE METER Timed 04/12/2024 9:16 PM CYBER ANALYST GLUCOSE METER Timed 04/12/2024 6:39 PM CYBER ANALYST COMPREHENSIVE BLOOD GAS MIXE D VENOUS Timed 04/12/2024 4:48 PM CYBER ANALYST CVL OTHER PROCEDURE Routine 04/12/2024 4:09 PM CYBER ANALYST Cardiovascular symptoms SCAN-CARDIAC STRIP 04/12/2024 3:27 PM CYBER ANALYST US RENAL AND BLADDER COMPLETE Routine 2:51 PM CYBER ANALYST GLUCOSE METER Timed 04/12/2024 11:55 AM CYBER ANALYST ECHO NOEL WO CONTRAST W COLOR W LTD DOPPLER Routine 04/12/2024 10:52 AM CYBER ANALYST EKG 12 LEAD Post Op 04/12/2024 10:49 AM CYBER ANALYST EP OTHER PROCEDURE Routine 04/12/2024 10:48 AM CYBER ANALYST GLUCOSE METER Timed 04/12/2024 7:30 AM CYBER ANALYST HEPATIC FUNCTION PANEL RUSH 6:31 AM CYBER ANALYST BASIC METABOLIC PANEL Early AM 04/12/2024 6:31 AM CYBER ANALYST MAGNESIUM Early AM 04/12/2024 6:31 AM CYBER ANALYST SCAN-CARDIAC STRIP 04/12/2024 3:46 AM CYBER ANALYST SCAN-OPERATIVE/PROCEDURE REPORT 04/12/2024 12:00 AM CYBER ANALYST GLUCOSE METER Timed 04/11/2024 9:47 PM CYBER ANALYST SCAN-CARDIAC STRIP 04/11/2024 8:21 PM CYBER ANALYST GLUCOSE METER Timed 04/11/2024 5:24 PM CYBER ANALYST SCAN-CARDIAC STRIP 04/11/2024 4:18 PM CYBER ANALYST GLUCOSE METER Timed 04/11/2024 11:31 AM CYBER ANALYST HEMOGLOBIN Today 04/11/2024 10:12 AM CYBER ANALYST MAGNESIUM RUSH 04/11/2024 10:12 AM CYBER ANALYST BASIC METABOLIC PANEL Early AM 04/11/2024 10:12 AM CYBER ANALYST SCAN-CARDIAC STRIP 04/11/2024 7:48 AM CYBER ANALYST GLUCOSE METER Timed 04/11/2024 7:44 AM CYBER ANALYST GLUCOSE METER Timed 04/10/2024 9:22 PM CYBER ANALYST POTASSIUM Timed 04/10/2024 6:20 PM CYBER ANALYST GLUCOSE METER Timed 04/10/2024 5:09 PM CYBER ANALYST SCAN-CARDIAC STRIP 04/10/2024 4:04 PM CYBER ANALYST POTASSIUM Timed 04/10/2024 1:24 PM CYBER ANALYST GLUCOSE METER Timed 04/10/2024 12:37 PM CYBER ANALYST SCAN-CARDIAC STRIP 04/10/2024 10:29 AM CYBER ANALYST GLUCOSE METER Timed 04/10/2024 8:26 AM CYBER ANALYST MAGNESIUM RUSH 04/10/2024 8:09 AM CYBER ANALYST BASIC METABOLIC PANEL Early AM 04/10/2024 8:09 AM CYBER ANALYST SCAN-CARDIAC STRIP 04/10/2024 5:01 AM CYBER ANALYST GLUCOSE METER Timed 04/09/2024 9:07 PM CYBER ANALYST POTASSIUM Timed 04/09/2024 7:56 PM CYBER ANALYST SCAN-CARDIAC STRIP 04/09/2024 7:40 PM CYBER ANALYST GLUCOSE METER Timed 04/09/2024 5:26 PM CYBER ANALYST SCAN-CARDIAC STRIP 04/09/2024 3:40 PM CYBER ANALYST GLUCOSE METER Timed 04/09/2024 8:14 AM CYBER ANALYST BASIC METABOLIC PANEL Early AM 04/09/2024 8:10 AM CYBER ANALYST GLUCOSE METER Timed 04/08/2024 9:15 PM CYBER ANALYST GLUCOSE METER Timed 04/08/2024 4:52 PM CYBER ANALYST POTASSIUM Timed 04/08/2024 2:45 PM CYBER ANALYST GLUCOSE METER Timed 04/08/2024 1:00 PM CYBER ANALYST PATH TISSUE EXAM Today 04/08/2024 12:39 PM CYBER ANALYST ESOPHAGOGASTRODUODENOSCOPY W ITH BIOPSY 04/08/2024 12:13 PM CYBER ANALYST melena GLUCOSE METER Timed 04/08/2024 11:09 AM CYBER ANALYST ENDOSCOPY 04/08/2024 9:49 AM CYBER ANALYST GLUCOSE METER Timed 04/08/2024 8:00 AM CYBER ANALYST EXTRA TUBE BLUE Today 04/08/2024 6:45 AM CYBER ANALYST EXTRA TUBE LAVENDER Today 04/08/2024 6:45 AM CYBER ANALYST PRO-BNP Early AM 04/08/2024 6:45 AM CYBER ANALYST BASIC METABOLIC PANEL Early AM 04/08/2024 6:45 AM CYBER ANALYST SCAN-CARDIAC STRIP 04/07/2024 11:52 PM CYBER ANALYST GLUCOSE METER Timed 04/07/2024 10:19 PM CYBER ANALYST GLUCOSE METER Timed 04/07/2024 7:15 PM CYBER ANALYST HEMOGLOBIN Timed 04/07/2024 6:10 PM CYBER ANALYST DIGOXIN Timed 04/07/2024 1:50 PM CYBER ANALYST HEMOGLOBIN Timed 04/07/2024 1:50 PM CYBER ANALYST GLUCOSE METER Timed 04/07/2024 12:33 PM CYBER ANALYST EKG 12 LEAD Routine 04/07/2024 10:01 AM CYBER ANALYST URINALYSIS MICROSCOPIC Timed 9:48 AM CYBER ANALYST UA W/ SEDIMENT EXAM REFLEXED PER CRITERIA Today 04/07/2024 9:48 AM CYBER ANALYST COVID/FLU/RSV PANEL Today 04/07/2024 9:48 AM CYBER ANALYST ICD ANALYSIS DUAL WITHOUT REPROGRAM Routine 04/07/2024 9:05 AM CYBER ANALYST ECHO TTE LIMITED W CONTRAST W COLOR W DOPPLER Routine 04/07/2024 8:53 AM CYBER ANALYST GLUCOSE METER Timed 04/07/2024 7:43 AM CYBER ANALYST EXTRA TUBE BLUE Today 04/07/2024 6:23 AM CYBER ANALYST LACTATE VENOUS Timed 04/07/2024 6:20 AM CYBER ANALYST HEMOGLOBIN Timed 04/07/2024 6:20 AM CYBER ANALYST MAGNESIUM Early AM 04/07/2024 6:20 AM CYBER ANALYST SODIUM Early AM 04/07/2024 6:20 AM CYBER ANALYST POTASSIUM Early AM 04/07/2024 6:20 AM CYBER ANALYST CREATININE Early AM 04/07/2024 6:20 AM CYBER ANALYST SCAN-CARDIAC STRIP 04/07/2024 5:29 AM CYBER ANALYST SCAN-CARDIAC STRIP 04/07/2024 3:14 AM CYBER ANALYST LACTATE VENOUS Timed 04/07/2024 2:58 AM CYBER ANALYST GLUCOSE METER Timed 04/07/2024 1:49 AM CYBER ANALYST TYPE & SCREEN Today 04/07/2024 12:39 AM CYBER ANALYST FERRITIN RUSH 04/07/2024 12:39 AM CYBER ANALYST IRON PLUS IRON BINDING CAP RUSH 04/07 12:39 AM CYBER ANALYST RETICULOCYTES RUSH 04/07/2024 12:39 AM CYBER ANALYST LACTATE VENOUS Today 04/07/2024 12:39 AM CYBER ANALYST COMP METABOLIC PANEL STAT 04/07/2024 12:39 AM CYBER ANALYST CBC W PLT NO DIFF STAT 04/07/2024 12:39 AM CYBER ANALYST XR CHEST 1 VIEW PORTABLE STAT 025 8:19 PM CYBER ANALYST TROPONIN I STAT 04/06/2024 7:53 PM CYBER ANALYST BASIC METABOLIC PANEL STAT 04/06/2024 7:53 PM CYBER ANALYST EXTRA TUBE LAVENDER Today 04/06/2024 3:55 PM CYBER ANALYST HEPATIC FUNCTION PANEL STAT 3:55 PM CYBER ANALYST BEDSIDE US STUDY ARCHIVE Routine 025 3:07 PM CYBER ANALYST HEPARIN LEVEL STAT 04/06/2024 2:45 PM CYBER ANALYST APTT STAT 04/06/2024 2:45 PM CYBER ANALYST PROTIME-INR STAT 04/06/2024 2:45 PM CYBER ANALYST EXTRA TUBE GOLD/SST Today 04/06/2024 2:45 PM CYBER ANALYST EXTRA TUBE BLUE Today 04/06/2024 2:45 PM CYBER ANALYST SLIDE REVIEW STAT 04/06/2024 2:45 PM CYBER ANALYST BRAIN NATRIURETIC PEPTIDE STAT 2024 2:45 PM CYBER ANALYST CBC WITH AUTO DIFFERENTIAL STAT 04/06 2:45 PM CYBER ANALYST TROPONIN I STAT 04/06/2024 2:45 PM CYBER ANALYST TSH WITH REFLEX STAT 04/06/2024 2:45 PM CYBER ANALYST MAGNESIUM STAT 04/06/2024 2:45 PM CYBER ANALYST BASIC METABOLIC PANEL STAT 04/06/2024 2:45 PM CYBER ANALYST CBC WITH AUTO DIFFERENTIAL STAT 04/06 2:45 PM CYBER ANALYST EKG 12 LEAD STAT 04/06/2024 2:35 PM CYBER ANALYST SCAN-CARDIAC STRIP 04/06/2024 12:00 AM CYBER ANALYST SCAN-CARDIAC STRIP 04/06/2024 12:00 AM CYBER ANALYST SCAN-CARDIAC STRIP 03/22/2024 12:00 AM CYBER ANALYST SCAN-CARDIAC STRIP 03/15/2024 12:[address] ABDOMEN PELVIS WO STAT 01/16/2024 4:53 AM CYBER ANALYST LIPID PANEL W REFLEX MEASURE D LDL [...] 16,479(H) <125 pg/mL 06/01/2024 10:17 AM CDT [facility] Blood BLOOD SPECIMEN / Unknown Non-Lab Venipuncture / Unknown 06/01/2024 9:00 AM CDT 06/01/2024 9:48 AM CDT [facility] - 06/01/2024 10:17 AM CDT [...] Kendall MD SEND OUTS Final Res ult [facility] [address] [place] [address] * (ABNORMAL) BASIC METABOLIC PANEL (06/01/2024 9:00 AM CDT) Only the most recent of17 resultswithin the time period is included. SODIUM 138 136 - 145 mmol/L 06/01/2024 10:17 AM [facility] POTASSIUM 3.5 3.5 - 5.1 mmol/L 06/01/2024 10:17 AM [facility] CHLORIDE 98 98 - 107 mmol/L 06/01/2024 10:17 AM [facility] CO2,TOTAL 27 22 - 29 mmol/L 06/01/2024 10:17 AM [facility] ANION GAP 13 5 - 18 06/01/2024 10:17 AM [facility] GLUCOSE 116(H) 70 - 99 mg/dL 06/01/2024 10:17 AM [facility] CALCIUM 8.9 8.8 - 10.4 mg/dL 06/01/2024 10:17 AM [facility] Comment: Reference ranges for this test were updated on 01/06/2024 to reflect our healthy population more accurately. Reference range changes are not retroactively applied to results, but previous results using the same methodology can be interpreted in the context of the new reference range. BUN 38(H) 8 - 23 mg/dL 06/01/2024 10:17 AM [facility] CREATININE 2.42(H) 0.70 - 1.20 mg/dL 06/01/2024 10:17 AM [facility] BUN/CREAT RATIO 16 10 - 20 10:17 AM [facility] eGFR 28(L) >90 mL/min/1. 73m2 06/01/2024 10:17 AM [facility] Comment:As of 2021, eG FR is calculated by the CKD-EPI creatinine equation without race adjustment. eGFR can be influenced by muscle mass, exercise, and diet. The reported eGFR is an estimation only and is only applicable if the renal function is stable. Blood BLOOD SPECIMEN / Unknown Non-Lab Venipuncture / Unknown 06/01/2024 9:00 AM CDT 06/01/2024 9:48 AM CDT us Lauro Kendall MD CHEMISTRY Final Res ult [facility] [address] [place] [address] * (ABNORMAL) PROTIME-INR (04/27/2024 10:26 AM CYBER ANALYST) Only the most recent of9 resultswithin the time period is included. INR 2.4(H) 0.8 - 1.1 04/27/2024 11:18 AM CYBER ANALYST [facility] Blood BLOOD SPECIMEN / Unknown Venipuncture / Unknown 04/27/2024 10:26 AM CYBER ANALYST 04/27/2024 10:38 AM CYBER ANALYST us Shana Lozano DO HEMATOLOGY Final Result [facility] [address] [place] [address], [place] [phone] * (ABNORMAL) Hepatic function panel AM (04/21/2024 6:15 AM CYBER ANALYST) Only the most recent of11 resultswithin the time period is included. ALBUMIN 3.5(L) 4.0 - 4.9 g/dL 04/21/2024 6:57 AM CYBER ANALYST [facility] TR[facility] LABORATORY PROTEIN,TOTAL 5.9(L) 6.0 - 8.0 g/dL 04/21/2024 6:57 AM CYBER ANALYST [facility] LABORATORY BILIRUBIN,TOTAL 1.0 0.0 - 1.2 mg/dL 04/21/2024 6:57 AM CYBER ANALYST [facility] LAB[facility] BILIRUBIN,DIRECT 0.5(H) 0.0 - 0.2 mg/dL 04/21/2024 6:57 AM CYBER ANALYST [facility] TRAL LABORATORY BILIRUBIN,INDIRE CT 0.5 0.2 - 0.8 mg/dL 04/21/2024 6:57 AM CYBER ANALYST [facility] LAB[facility] ALK PHOSPHATASE 158(H) 40 - 129 IU/L 04/21/2024 6:57 AM CYBER ANALYST [facility] LAB[facility]ORY ALT (SGPT) 48 10 - 50 IU/L 04/21/2024 6:57 AM CYBER ANALYST [facility] AST (SGOT) 18 10 - 50 IU/L 04/21/2024 6:57 AM CYBER ANALYST [facility] LAB[facility] Blood BLOOD SPECIMEN / Unknown Venipuncture / Unknown 04/21/2024 6:15 AM CYBER ANALYST 04/21/2024 6:29 AM CYBER ANALYST us Lauro Kendall MD CHEMISTRY Final Res ult [facility] [address] [place] [address], [place] * SCAN-CARDIAC STRIP (04/20/2024 11:03 PM CYBER ANALYST) us Scanner OTHER Final Result * SCAN-CARDIAC STRIP (04/20/2024 7:32 PM CYBER ANALYST) us Scanner OTHER Final Result * (ABNORMAL) CBC (04/20/2024 7:04 AM CYBER ANALYST) Only the most recent of2 resultswithin the time period is included. WHITE BLOOD COUNT 8.1 4.5 - 11.0 thou/cu mm 04/20/2024 7:31 AM [facility] LAB[facility] RED BLOOD COUNT 3.32(L) 4.30 - 5.90 mil/cu mm 04/20/2024 7:31 AM [facility] HEMOGLOBIN 9.6(L) 13.5 - 17.5 g/dL 04/20/2024 7:31 AM [facility] HEMATOCRIT 30.3(L) 37.0 - 53.0 % 04/20/2024 7:31 AM [facility] MCV 91 80 - 100 fL 04/20/2024 7:31 AM [facility] MCH 28.9 26.0 - 34.0 pg 04/20/2024 7:31 AM [facility] MCHC 31.7(L) 32.0 - 36.0 g/dL 04/20/2024 7:31 AM [facility] RDW 18.9(H) 11.5 - 15.5 % 04/20/2024 7:31 AM [facility] PLATELET COUNT 229 140 - 440 thou/cu mm 04/20/2024 7:31 AM [facility] MPV 10.9 6.5 - 11.0 fL 04/20/2024 7:31 AM [facility] NRBC 0.2 % 04/20/2024 7:31 AM [facility] LAB[facility] ABS NRBC 0.0 thou /cu mm 04/20/2024 7:31 AM CYBER ANALYST [facility] Blood BLOOD SPECIMEN / Unknown Venipuncture / Unknown 04/20/2024 7:04 AM CYBER ANALYST 04/20/2024 7:20 AM CYBER ANALYST Madonna Hedrick [employer] HEMATOLOGY Final Res ult Performing Organization Address [facility] Co de Phone Number [facility] [address] [place] [address], [place] * (ABNORMAL) Magnesium AM (04/20/2024 7:04 AM CYBER ANALYST) Only the most recent of13 resultswithin the time period is included. MAGNESIUM 2.5(H) 1.6 - 2.4 mg/dL 04/20/2024 7:50 AM CYBER ANALYST [facility] Blood BLOOD SPECIMEN / Unknown Venipuncture / Unknown 04/20/2024 7:04 AM CYBER ANALYST 04/20/2024 7:20 AM CYBER ANALYST Madonna Hedrick [employer] CHEMISTRY Final Res ult Performing Organization Address [facility] Co de Phone Number [facility] [address] [place] [address], [place] * (ABNORMAL) O2 SATURATION,MEASURED (04/20/2024 6:22 AM CYBER ANALYST) Only the most recent of9 resultswithin the time period is included. O2 SATURATION,MANISH SURED 55 % 04/20/2024 6:38 AM CYBER ANALYST [facility] HEMOGLOBIN,BLO OD GAS 10.0(L) 13.5 - 17.5 g/dL 04/20/2024 6:38 AM CYBER ANALYST [facility] SOURCE, O2M Venous 04/20/2024 6:38 AM CYBER ANALYST [facility] Blood BLOOD SPECIMEN / Unknown Non-Lab Venipuncture / Unknown 04/20/2024 6:22 AM CYBER ANALYST 04/20/2024 6:34 AM CYBER ANALYST Narrative [facility] - 04/20/2024 6:38 AM CYBER ANALYST Reference Range for: Arterial Source ([id number]) Non-Arterial Source (70-75) us Marylou Currie NP CHEMISTRY Final R esult Performing Organization Address [facility] de Phone Number [facility] [address] [address], [place] * SCAN-CARDIAC STRIP (04/19/2024 7:23 PM CYBER ANALYST) us Scanner OTHER Final Result * SCAN-CARDIAC STRIP (04/19/2024 1:45 PM CYBER ANALYST) us Scanner OTHER Final Result * (ABNORMAL) Hemoglobin AM (04/19/2024 6:57 AM CYBER ANALYST) Only the most recent of8 resultswithin the time period is included. [facility] HEMOGLOBIN 10.3(L) 13.5 - 17.5 g/dL 04/19/2024 8:14 AM CYBER ANALYST [facility] MCV 93 80 - 100 fL 04/19/2024 8:14 AM CYBER ANALYST [facility] Blood BLOOD SPECIMEN / Unknown Non-Lab Venipuncture / Unknown 04/19/2024 6:57 AM CYBER ANALYST 04/19/2024 8:09 AM CYBER ANALYST us Deborah Lipscomb MD HEMATOLOGY Final R esult Performing Organization Address [facility] Co de Phone Number [facility] [address] [address], [place] * SCAN-CARDIAC STRIP (04/18/2024 10:04 PM CYBER ANALYST) us Scanner OTHER Final Result * SCAN-CARDIAC STRIP (04/18/2024 5:43 PM CYBER ANALYST) us Scanner OTHER Final Result * POTASSIUM (04/18/2024 12:45 PM CYBER ANALYST) Only the most recent of11 resultswithin the time period is included. POTASSIUM 3.9 3.5 - 5.1 mmol/L 04/18/2024 1:14 PM CYBER ANALYST [facility] Blood BLOOD SPECIMEN / Unknown Venipuncture / Unknown 04/18/2024 12:45 PM CYBER ANALYST 04/18/2024 12:51 PM CYBER ANALYST us Deborah Lipscomb MD CHEMISTRY Final R esult Performing Organization Address City/[facility]/ZIP Co de Phone Number [facility] [address] [place] [address], [place] * SCAN-CARDIAC STRIP (04/18/2024 7:46 AM CYBER ANALYST) us Scanner OTHER Final Result * SCAN-CARDIAC STRIP (04/17/2024 11:49 PM CYBER ANALYST) us Scanner OTHER Final Result * SCAN-CARDIAC STRIP (04/17/2024 9:12 PM CYBER ANALYST) us Scanner OTHER Final Result * SCAN-CARDIAC STRIP (04/17/2024 7:41 AM CYBER ANALYST) us Scanner OTHER Final Result * SCAN-CARDIAC STRIP (04/16/2024 11:25 PM CYBER ANALYST) us Scanner OTHER Final Result * (ABNORMAL) ALT (SGPT) (04/16/2024 10:19 AM CYBER ANALYST) ALT (SGPT) 201(H) 10 - 50 IU/L 04/16/2024 11:00 AM CYBER ANALYST [facility] Blood BLOOD SPECIMEN / Unknown Butterfly / Unknown 04/16/2024 10:19 AM CYBER ANALYST 04/16/2024 10:30 AM CYBER ANALYST us Deborah Lipscomb MD CHEMISTRY Final R esult [facility] [address] [address], [place] * (ABNORMAL) AST (SGOT) (04/16/2024 10:19 AM CYBER ANALYST) AST (SGOT) 58(H) 10 - 50 IU/L 04/16/2024 11:00 AM CYBER ANALYST [facility] Blood BLOOD SPECIMEN / Unknown Butterfly / Unknown 04/16/2024 10:19 AM CYBER ANALYST 04/16/2024 10:30 AM CYBER ANALYST Deborah Lipscomb MD CHEMISTRY Final R esult Performing Organization Address [facility] Co de Phone Number [facility] [address] [place] [address], [place] * (ABNORMAL) ALK PHOSPHATASE (04/16/2024 10:19 AM CYBER ANALYST) ALK PHOSPHATASE 157(H) 40 - 129 IU/L 04/16/2024 11:00 AM CYBER ANALYST [facility] Blood BLOOD SPECIMEN / Unknown Butterfly / Unknown 04/16/2024 10:19 AM CYBER ANALYST 04/16/2024 10:30 AM CYBER ANALYST Deborah Lipscomb MD CHEMISTRY Final R esult Performing Organization Address [facility] Co de Phone Number [facility] [address] [id number], [place] * (ABNORMAL) BILIRUBIN DIRECT (04/16/2024 10:19 AM CYBER ANALYST) BILIRUBIN,DIRE CT 0.6(H) 0.0 - 0.2 mg/dL 04/16/2024 11:00 AM CYBER ANALYST [facility] Blood BLOOD SPECIMEN / Unknown Butterfly / Unknown 04/16/2024 10:19 AM CYBER ANALYST 04/16/2024 10:30 AM CYBER ANALYST Deborah Lipscomb MD CHEMISTRY Final R esult Performing Organization Address City/[facility]/ZIP Co de Phone Number [facility] [address] [address], [place] * SCAN-CARDIAC STRIP (04/16/2024 8:23 AM CYBER ANALYST) us Scanner OTHER Final Result * (ABNORMAL) SODIUM (04/16/2024 8:09 AM CYBER ANALYST) Only the most recent of2 resultswithin the time period is included. SODIUM 134(L) 136 - 145 mmol/L 04/16/2024 9:45 AM CYBER ANALYST [facility]ORad[facility] NetworksH[facility] Blood BLOOD SPECIMEN / Unknown Non-Lab Venipuncture / Unknown 04/16/2024 8:09 AM CYBER ANALYST 04/16/2024 9:06 AM CYBER ANALYST Deborah Lipscomb MD CHEMISTRY Final R [facility] Performing Organization Address [facility] Co de Phone Number [facility] [address] [place] [address], [place] * (ABNORMAL) CREATININE (04/16/2024 8:09 AM CYBER ANALYST) Only the most recent of2 resultswithin the time period is included. eGFR 37(L) >90 mL/min/1.7 3m2 04/16/2024 9:45 AM CYBER ANALYST [facility]INOWelcome FundsOH[facility] Comment:As of 2021, eG FR is calculated by the CKD-EPI creatinine equation without race adjustment. eGFR can be influenced by muscle mass, exercise, and diet. The reported eGFR is an estimation only and is only applicable if the renal function is stable. CREATININE 1.91(H) 0.70 - 1.20 mg/dL 04/16/2024 9:45 AM CYBER ANALYST [facility]ORad[facility] NetworksOH[facility] Blood BLOOD SPECIMEN / Unknown Non-Lab Venipuncture / Unknown 04/16/2024 8:09 AM CYBER ANALYST 04/16/2024 9:06 AM CYBER ANALYST Deborah Lipscomb MD CHEMISTRY Final R [facility] Performing Organization Address City/[facility] Co de Phone Number [facility] [address] [place] [address], [place] * SCAN-CARDIAC STRIP (04/16/2024 1:03 AM CYBER ANALYST) us Scanner OTHER Final Result * SCAN-CARDIAC STRIP (04/15/2024 8:37 PM CYBER ANALYST) us Scanner OTHER Final Result * EKG 12 LEAD (04/15/2024 12:31 PM CYBER ANALYST) Only the most recent of6 resultswithin the [...] NOW QTc 448 ms BEYOND NOW P [place] 53 degrees BEYOND NOW R [place] -60 degrees BEYOND NOW T [place] 118 degrees BEYOND NOW 04/15/2024 12:3 1 PM CYBER ANALYST 04/16/2024 1:25 AM CYBER ANALYST us Jossie Prado WEIGHTS AND MEASURES SEALER EKG ORD Final Result Performing Organization Address City/[facility]/ZIP Co de Phone Number BEYOND NOW [place], [place] * (ABNORMAL) GLUCOSE METER (04/15/2024 7:49 AM CYBER ANALYST) Only the most recent of33 resultswithin the time period is included. GLUCOSE METER 134(H) 65 - 100 mg/dL 04/15/2024 7:54 AM CYBER ANALYST [facility] Blood BLOOD SPECIMEN / Unknown 04/15/2024 7:49 AM CYBER ANALYST 04/15/2024 7:54 AM CYBER ANALYST us Deborah Lipscomb MD CHEMISTRY Final R esult [facility]-CENTRAL LABORATORY [address] [place] [address], [place] * SCAN-CARDIAC STRIP (04/15/2024 7:26 AM CYBER ANALYST) us Scanner OTHER Final Result * SCAN-CARDIAC STRIP (04/15/2024 3:06 AM CYBER ANALYST) us Scanner OTHER Final Result * SCAN-CARDIAC STRIP (04/14/2024 9:43 PM CYBER ANALYST) us Scanner OTHER Final Result * SCAN-CARDIAC STRIP (04/14/2024 3:27 PM CYBER ANALYST) us Scanner OTHER Final Result * ICD ANALYSIS DUAL WITHOUT REPROGRAM (04/14/2024 3:13 PM CYBER ANALYST) Narrative Vasyl Kim MD - 04/14/2024 3:13 PM CYBER ANALYST Marino Strickland RN 04/14/2024 3:17 PM ICD EVALUATION REPORT 04/14/2024 Summary: Normal pacemaker function. Lead trends stable. 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 No VT detections. AP 20.9%, YOGHURT MAKER 0.2%. Battery estimating 11.2 years remaining. Indication for ICD: Primary Prevention of Sudden Cardiac Primary MD: Shana Lozano DO Primary Card Cutter: [facility] Implanting MD: Bert Quiros- [facility] DEVICE DATA Desktop Publishing Operator Medtronic: Model [place] XT DR [id number] Implant Date 04/09/2023 LEAD DATA Atrial Lead: Desktop Publishing Operator Medtronic: Model 5076-52 cm Implant Date 04/09/23 RV Lead: Desktop Publishing Operator Medtronic: Model [id number]-62 cm Implant Date [...] Tachy therapy hx: none Location of evaluation: [facility] [id number] Reason for evaluation: MD request [...] permanent changes made. Follow up: follows with [facility] device clinic Marino Strickland RN Nurse Clinician II I Pacemaker/ICD [phone] us Vasyl Kim MD CARDIAC SERVICES ORD Final Result * SCAN-CARDIAC STRIP (04/14/2024 7:21 AM CYBER ANALYST) us Scanner OTHER Final Result * URINALYSIS MICROSCOPIC (04/14/2024 6:29 AM CYBER ANALYST) Only the most recent of2 resultswithin the time period is included. RBC 0-2 0-2, None Seen /HPF 04/14/2024 7:26 AM CYBER ANALYST [facility] WBC 3-5 0-2, 3-5, None Seen /HPF 04/14/2024 7:26 AM CYBER ANALYST [facility] BACTERIA None Seen None Seen, Rare, Few Bacteria/ HPF 04/14/2024 7:26 AM CYBER ANALYST [facility] EPITHELIAL CELLS None Seen None Seen, Few Epi/HPF 04/14/2024 7:[address] [facility] HYALINE CASTS 0-2 0-2, 3-5 /LPF 04/14/2024 7:[address] [facility] Urine URINE SPECIMEN / Unknown Non-Blood / Unknown 04/14/2024 6:29 AM CYBER ANALYST 04/14/2024 6:36 AM [facility] us Santy Crowley MD URINE Final Re sult [facility] [address] [place] [address], [place] * (ABNORMAL) UA W/ SEDIMENT EXAM REFLEXED PER CRITERIA (04/14/2024 6:29 AM CYBER ANALYST) Only the most recent of2 resultswithin the time period is included. COLOR Yellow Yellow Color 04/14/2024 7:[address] [facility] CLARITY Clear Clear Clarity 04/14/2024 7:[address] [facility] SPECIFIC GRAVITY,URINE 1.015 1.010, 1.015, 1.020, 1.025 04/14/2024 7:[address] [facility] PH,URINE 5.5 6.0, 7.0, 8.0, 5.5, 6.5, 7.5, 8.5 04/14/2024 7:[address] [facility] UROBILINOGEN, QUALITATIVE Normal Normal EU/dl 04/14/2024 7:26 AM CYBER ANALYST [facility] TRAL LABORATORY PROTEIN, URINE Negative Negative mg/dL 04/14/2024 7:26 AM CYBER ANALYST [facility] TRAL LABORATORY GLUCOSE, URINE Negative Negative mg/dL 04/14/2024 7:26 AM CYBER ANALYST [facility] TRAL LABORATORY KETONES,URINE Negative Negative mg/dL 04/14/2024 7:26 AM CYBER ANALYST [facility] TRAL LABORATORY BILIRUBIN,URI NE Negative Negative 04/14/2024 7:26 AM CYBER ANALYST [facility] TRAL LABORATORY OCCULT BLOOD,URINE Negative Negative 04/14/2024 7:26 AM CYBER ANALYST [facility] TRAL LABORATORY NITRITE Negative Negative 04/14/2024 7:26 AM CYBER ANALYST [facility] LEUKOCYTE ESTERASE Trace(A) Negative 04/14/2024 7:26 AM [facility] TRAL LABORATORY Urine URINE SPECIMEN / Unknown Non-Blood / Unknown 04/14/2024 6:29 AM CYBER ANALYST 04/14/2024 6:36 AM CYBER ANALYST us Santy Crowley MD URINE Final Re sult [facility] [address] [place] [id number], * SCAN-CARDIAC STRIP (04/13/2024 8:03 PM CYBER ANALYST) us Scanner OTHER Final Result * PICC LINE (04/13/2024 7:28 PM CYBER ANALYST) Narrative Eleonora Fox, RN - 04/13/2024 7:28 PM CYBER ANALYST Eleonora Fox RN 04/13/2024 7:33 PM PICC Line Insertion Note 04/13/2024 7:28 PM Procedure education reviewed: Placement procedure, discussed with: Patient face to face. Patient face to face confirms understanding of procedure. Visualizer used: No Reason for insertion: MD order [...] (Active) 04/13/241899 Right;Basilic;Upper Arm Vessel Diameter: 0.46 Nysfeokz-pt-Bjsl Ratio (%): Visible Catheter Length (cm): 0 [...] Dressing change due date 04/20/2024 04/13/241899 Line Desktop Publishing Operator Name: Bard Line Type: Valved Power PICC Lot Number: [id number] Access Assistance:Modified Seldinger Technique (Micro-Introducer) WITH Dermatotomy [...] * Insert PICC line (04/13/2024 7:20 PM CYBER ANALYST) Narrative Eleonora Fox, RN - 04/13/2024 7:20 PM CYBER ANALYST Eleonora Fox RN 04/13/2024 7:22 PM PICC Tip Location [...] chart. Pt's RN notified OK to use. Result Trang Kendall MD IV ORD Final Res ult * SCAN-CARDIAC STRIP (04/13/2024 3:12 PM CYBER ANALYST) us Scanner OTHER Final Result * ICD ANALYSIS DUAL WITHOUT REPROGRAM (04/13/2024 1:57 PM CYBER ANALYST) Narrative Vasyl Kim MD - 04/13/2024 1:57 PM CYBER ANALYST Mirela Bates, RN 04/13/2024 2:23 PM ICD EVALUATION REPORT 04/13/2024 Summary: Normal pacemaker function. Lead trends stable. 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 No VT detections. AP 2.9%, YOGHURT MAKER 51.9%. Battery estimating 11.3 years remaining. Indication for ICD: Primary Prevention of Sudden Cardiac Primary MD: Shana Lozano DO Primary Card Cutter: [facility] Implanting MD: Bert Quiros- [facility] DEVICE DATA Desktop Publishing Operator Medtronic: Model [place] XT DR [id number] Implant Date 04/09/2023 LEAD DATA Atrial Lead: Desktop Publishing Operator Medtronic: Model 5076-52 cm Implant Date 04/09/23 RV Lead: Desktop Publishing Operator Medtronic: Model 6935M-62 cm Implant Date [...] Tachy therapy hx: none Location of evaluation: [facility] [id number] Reason for evaluation: MD request- [...] permanent changes made. Follow up: follows with [facility] device clinic Mirela Bates RN Nurse Clinician II [facility] Pacemaker/ICD Clinic [phone] Vasyl Kim MD CARDIAC SERVICES ORD Final Result * SCAN-CARDIAC STRIP (04/13/2024 7:35 AM CYBER ANALYST) Scanner OTHER Final Result * (ABNORMAL) COMPREHENSIVE BLOOD GAS MIXED VENOUS (04/12/2024 4:48 PM CYBER ANALYST) O2 SATURATION, MEASURED, MIXED VENOUS 41(L) 70 - 75 % 04/12/2024 4:48 PM CYBER ANALYST [facility] LABORAT[facility]-CE NTRAL LABORATORY PATIENT TEMPERATURE 37.0 Degrees C 04/12/2024 4:48 PM CYBER ANALYST [facility] LABORAT[facility]- NTRMS LABORATORY COLLECTION SITE PULMONARY ARTERY 04/12/2024 4:48 PM CYBER ANALYST [facility]- [facility] LABOR[facility] HEMOGLOBIN,BLOO D GAS 11.4(L) 13.5 - 17.5 g/dL 04/12/2024 4:48 PM CYBER ANALYST [facility]OR[facility]- N[facility] LABORATORY Blood BLOOD SPECIMEN / Unknown 04/12/2024 4:48 PM CYBER ANALYST 04/12/2024 4:48 PM CYBER ANALYST [facility] CHEMISTRY Final Re sult [facility] LABORAT[facility]-CENTRAL LABORATORY [address] [place] [address], * CVL OTHER PROCEDURE (04/12/2024 4:09 PM CYBER ANALYST) Anatomical Region Laterality Modality Other 04/12/2024 4:09 PM CYBER ANALYST us Provider Referring CV IMAGING Final Result * SCAN-CARDIAC STRIP (04/12/2024 3:27 PM CYBER ANALYST) us Scanner OTHER Final Result * US RENAL AND BLADDER COMPLETE (04/12/2024 2:51 PM CYBER ANALYST) Anatomical Region Laterality Modality Abdomen, AORTA, KIDNEYS Ultrasou nd 04/12/2024 3:46 PM CYBER ANALYST Impressions 04/12/2024 3:46 PM CYBER ANALYST Simple appearing right lower pole renal cyst. Otherwise, no concerning findings on a renal ultrasound. Dictated by Danny Rubio MD @ 04/12/2024 3:46:12 PM (Electronically Signed) Narrative 04/12/2024 3:46 PM CYBER ANALYST For Patients: As a result of the [...] COLOR W LTD DOPPLER (04/12/2024 10:52 AM CYBER ANALYST) MITRAL VALVE MR ERO 13 mm2 EJECTION FRACTION 10 - 20% Anatomical Region Laterality Modality Ultrasound 04/12/2024 10:2 2 AM CYBER ANALYST Narrative 04/12/2024 1:01 PM CYBER ANALYST TRANSESOPHAGEAL ECHOCARDIOGRAM CASEY SOLER : 1950 73 years Study Date: 04/12/2024 10:22:59 AM Gender: M BP: 96/76 mmHg Height: 172.00 cm BSA: 1.91 m Weight: 78.00 kg Tech: LETICIA/ION Referring MD: FARA BLACKWELL Site: [facility] Reading Location: [facility] Patient Location: Inpatient. Procedure: NOEL, Limited [...] This study was interpreted by an [facility] accredited facility. Final Procedure Note Troy Munoz MD - 04/12/2024 TRANSESOPHAGEAL ECHOCARDIOGRAM CASEY SOLER : 1950 73 years Study Date: 04/12/2024 10:22:59 AM Gender: M BP: 96/76 mmHg Height: 172.00 cm BSA: 1.91 m Weight: 78.00 kg Tech: LETICIA/IJ Referring MD: FARA BLACKWELL Site: [facility] Reading Location: [facility] Patient Location: Inpatient. Procedure: NOEL, Limited [...] This study was interpreted by an [facility] accredited facility. Final us Fara Blackwell WEIGHTS AND MEASURES SEALER ECHO ORD Final Resu lt * EP OTHER PROCEDURE (04/12/2024 10:48 AM CYBER ANALYST) Anatomical Region Laterality Modality Other Narrative 04/12/2024 10:48 AM CYBER ANALYST Troy Munoz MD 04/12/2024 10:48 AM [facility] Procedure Note Date of Service: 04/12/2024 Procedure [...] sult * SCAN-CARDIAC STRIP (04/12/2024 3:46 AM CYBER ANALYST) us Scanner OTHER Final Result * SCAN-OPERATIVE/PROCEDURE REPORT (04/12/2024 12:00 AM CYBER ANALYST) Narrative 04/12/2024 12:00 AM CYBER ANALYST Ordered by an unspecified provider. us Other Clinical Staff OTHER Final Resul t * SCAN-CARDIAC STRIP (04/11/2024 8:21 PM CYBER ANALYST) us Scanner OTHER Final Result * SCAN-CARDIAC STRIP (04/11/2024 4:18 PM CYBER ANALYST) us Scanner OTHER Final Result * SCAN-CARDIAC STRIP (04/11/2024 7:48 AM CYBER ANALYST) us Scanner OTHER Final Result * SCAN-CARDIAC STRIP (04/10/2024 4:04 PM CYBER ANALYST) us Scanner OTHER Final Result * SCAN-CARDIAC STRIP (04/10/2024 10:29 AM CYBER ANALYST) us Scanner OTHER Final Result * SCAN-CARDIAC STRIP (04/10/2024 5:01 AM CYBER ANALYST) us Scanner OTHER Final Result * SCAN-CARDIAC STRIP (04/09/2024 7:40 PM CYBER ANALYST) us Scanner OTHER Final Result * SCAN-CARDIAC STRIP (04/09/2024 3:40 PM CYBER ANALYST) us Scanner OTHER Final Result * PATH TISSUE EXAM (04/08/2024 12:39 PM CYBER ANALYST) Case Report Pathology Report Case: [id number] Authorizing Provider: Chepe Francis MD Collected: 04/08/2024 1239 Ordering Location: [facility] Received: 04/08/2024 1244 Hospital Pathologist: Lukasz Pinto MD Specimen: Gastric Biopsy 04/09/2024 11:12 AM [facility]-C ENTRAL LABORATORY Final Diagnosis A) STOMACH, BIOPSY: 1. Normal gastric antral and body mucosae with endoscopic erosion (see comment) 2. Negative for chronic gastritis or Helicobacter 04/09/2024 11:12 AM [facility] LABORATORY-C ENTRAL LABORATORY at 1112 CYBER ANALYST Comment A) We note the endoscopic presence of an erosion. The sampled mucosa is histologically normal. In this context patchy reactive gastropathy due to chemical type injury (NSAIDs, alcohol, bile reflux, etc.) seems likely. Please correlate clinically. 04/09/2024 11:12 AM [facility] ENTRAL LABORATORY Clinical Information 73-year-old male with iron deficiency anemia and melena. He is on chronic aspirin, Plavix, and ibuprofen. EGD identified a single erosion in the prepyloric region of the stomach. 04/09/2024 11:12 AM [facility] LABORATORY-C ENTRAL LABORATORY Gross Description A) Received in formalin is a 6 x 3 x 1 mm aggregate of alvarez mucosa. Submitted in one cassette. It is labeled with the patient's name and designated gastric biopsy. Joana Sean 04/08/2024 1:06 PM 04/09/2024 11:12 AM [facility] ENTRAL LABORATORY Microscopic Description The final diagnosis is based on microscopic examination of appropriate sections of all specimens. 04/09/2024 11:12 AM [facility] LABORATORY-C ENTRAL LABORATORY Additional Information Interpreted at [facility] - [address], [place] [address] 04/09/2024 11:12 AM [facility] ENTRAL LABORATORY Biopsy GASTRIC BIOPSY SPECIMEN / Unknown 04/08/2024 12:39 PM CYBER ANALYST 04/08/2024 12:44 PM CYBER ANALYST us Chepe Francis MD PATHOLOGY/CYTOLOGY Christy griffith Result [facility] LABORATORY-CENTRAL LABORATORY [address] [place] [address], * ENDOSCOPY (04/08/2024 9:49 AM CYBER ANALYST) 04/08/2024 9:49 AM CYBER ANALYST Narrative Transcriptions Chepe Francis MD - 04/08/2024 1:46 PM CST [facility] Patient Name: Casey Soler Procedure Date: 04/08/2024 Gender: Male Date of : 1950 Admit Type: Inpatient Procedure: Upper GI endoscopy Proceduralist: Chepe Francis MD - [facility] Indications/Pre-Op Diagnosis: Iron deficiency anemia, Melena; chronicaspirin 81 mg and plavix; chronic ibuprofen usedaily; recently started on anticoagulation foratrial fibrillation Medications: Monitored Anesthesia Care Procedure Description: Risk of bleeding, infection, perforation, need for surgery and alternatives discussed. The endoscope [id number] was introduced through the mouth, and advanced [...] * EXTRA TUBE LAVENDER (04/08/2024 6:45 AM CYBER ANALYST) Only the most recent of2 resultswithin the time period is included. Blood BLOOD SPECIMEN / Unknown Non-Lab Venipuncture / Unknown 04/08/2024 6:45 AM CYBER ANALYST 04/08/2024 6:57 AM CYBER ANALYST Joseph Arora MD LABORATORY Final Re sult [facility] LABORATORY-CENTRAL LABORATORY [address] [place] [address], [place] * EXTRA TUBE BLUE (04/08/2024 6:45 AM CYBER ANALYST) Only the most recent of3 resultswithin the time period is included. Blood BLOOD SPECIMEN / Unknown Non-Lab Venipuncture / Unknown 04/08/2024 6:45 AM CYBER ANALYST 04/08/2024 6:57 AM CYBER ANALYST Joseph Arora MD LABORATORY Final Re sult Performing Organization Address [facility]/ZIP Co de Phone Number [facility] [address] [place] [address], * SCAN-CARDIAC STRIP (04/07/2024 11:52 PM CYBER ANALYST) Scanner OTHER Final Result * (ABNORMAL) DIGOXIN (04/07/2024 1:50 PM CYBER ANALYST) Pathologist [facility] DIGOXIN 2.5(H) 0.8 - 2.0 ng/mL 04/07/2024 2:32 PM CYBER ANALYST [facility] TRAL LABORATORY DATE OF LAST DOSE Not Given 04/07/2024 2:32 PM CYBER ANALYST [facility] TRAL LABORATORY TIME OF LAST DOSE Not Given 04/07/2024 2:32 PM CYBER ANALYST [facility] LAB[facility] Blood BLOOD SPECIMEN / Unknown Venipuncture / Unknown 04/07/2024 1:50 PM CYBER ANALYST 04/07/2024 1:55 PM CYBER ANALYST Guille Choi NP CHEMISTRY Final Result Performing Organization Address [facility] Co de Phone Number [facility] [address] [place] [address], * COVID/FLU/RSV PANEL (04/07/2024 9:48 AM CYBER ANALYST) Pathologist [facility] COVID 19 [facility] MOLECULAR Negative Negative 04/07/2024 12:16 PM CYBER ANALYST [facility] TRAL LABORATORY Comment:All PCR tests are krishnan bject to false negative result due to variability in viral load and collection technique. A negative result does not rule out a SARS-CoV-2 infection. Clinical correlation required. INFLUENZA A PCR Negative 12:16 PM CYBER ANALYST [facility] TRAL LABORATORY INFLUENZA B PCR Negative 12:16 PM CYBER ANALYST [facility] TRAL LABORATORY Respiratory Syncytial Virus Negative 04/07/2024 12:16 PM CYBER ANALYST [facility] TRAL LABORATORY Swab NASOPHARYNGEAL SWAB / Unknown Non-Blood / Unknown 04/07/2024 9:48 AM CYBER ANALYST 04/07/2024 10:17 AM CYBER ANALYST us Joseph Arora MD MICROBIOLOGY Final Re sult [facility] LABORATORY-CENTRAL LABORATORY [address] [place], [place] [id number], * ICD ANALYSIS DUAL WITHOUT REPROGRAM (04/07/2024 9:05 AM CYBER ANALYST) Narrative Chato Benz MD - 04/07/2024 9:05 AM CYBER ANALYST Mirela Bates RN 04/07/2024 9:59 AM ICD EVALUATION REPORT April 07, 2024 Summary: Normal pacemaker function. Lead trends stable. One AT/AF detection- beginning on 04/03/24 and has continuous since this time. Poor ventricular rate control. One VT detection on 01/29/24- 3 seconds rate of 233 bpm. AP 35.8%, YOGHURT MAKER 2.2%. Battery estimating 11.3 years remaining. Indication for ICD: Primary Prevention of Sudden Cardiac Primary MD: Shana Lozano DO Primary Card Cutter: [facility] Implanting MD: Bert Quiros- [facility] DEVICE DATA Desktop Publishing Operator Medtronic: Model [place] XT DR [id number] Implant Date 04/09/2023 LEAD DATA Atrial Lead: Desktop Publishing Operator Medtronic: Model 5076-52 cm Implant Date 04/09/23 RV Lead: Desktop Publishing Operator Medtronic: Model 6935M-62 cm Implant Date [...] Tachy therapy hx: none Location of evaluation: [facility] [id number] Reason for evaluation: MD request [...] permanent changes made. Follow up: follows with [facility] device clinic Mirela Bates RN Nurse Clinician II [facility] Pacemaker/ICD Clinic [phone] us Chato Benz MD CARDIAC SERVICES ORD F inal Result * ECHO TTE LIMITED W CONTRAST W COLOR W DOPPLER (04/07/2024 8:53 AM CYBER ANALYST) AORTIC VALVE MEAN PG 2 mmHg EJECTION FRACTION 20 % LVEDD 6.6 cm Anatomical Region Laterality Modality Ultrasound 04/07/2024 8:08 AM CYBER ANALYST Narrative 04/07/2024 9:36 AM CYBER ANALYST ECHOCARDIOGRAM CASEY SOLER : 1950 73 years Study Date: 04/07/2024 8:08:24 AM Gender: M BP: 90/87 mmHg Height: 172.00 cm BSA: 1.94 m Weight: 81.00 kg Tech: LETICIA Referring MD: GUILLE CHOI Site: [facility] Reading Location: ANW IP Patient Location: [...] documentation: 2 ml diluted Definity, lot #[id number], [facility]# [id number] was administered peripherally to enhance visualization of all left ventricular segments. . This study was interpreted by an [facility] accredited facility. Final Procedure Note Jayashree Velarde MD - 04/07/2024 ECHOCARDIOGRAM CASEY SOLER : 1950 73 years Study Date: 04/07/2024 8:08:24 AM Gender: M BP: 90/87 mmHg Height: 172.00 cm BSA: 1.94 m Weight: 81.00 kg Tech: LETICIA Casas MD: GUILLE CHOI Site: [facility] Reading Location: [facility] Patient Location: Inpatient. Procedure: Limited Echo [...] documentation: 2 ml diluted Definity, lot #[id number], [facility]#[id number] was administered peripherally to enhance visualization of allleft ventricular segments. . This study was interpreted by an [facility] accredited facility. Final us Guille Choi NP ECHO ORD Final Result * (ABNORMAL) LACTATE VENOUS (04/07/2024 6:20 AM CYBER ANALYST) Only the most recent of3 resultswithin the time period is included. LACTATE,VENOUS 2.5(H) 0.5 - 2.0 mmol/L 04/07/2024 7:32 AM CYBER ANALYST [facility]ad[facility] NetworksHOSPITAL [facility] LAB[facility] Blood BLOOD SPECIMEN / Unknown Venipuncture / Unknown 04/07/2024 6:20 AM CYBER ANALYST 04/07/2024 6:59 AM CYBER ANALYST us Guille Choi NP CHEMISTRY Final Result [facility] [address] [place] [address], * SCAN-CARDIAC STRIP (04/07/2024 5:29 AM CYBER ANALYST) us Scanner OTHER Final Result * SCAN-CARDIAC STRIP (04/07/2024 3:14 AM CYBER ANALYST) us Scanner OTHER Final Result * TYPE & SCREEN (04/07/2024 12:39 AM CYBER ANALYST) Pathologist [facility] ABORH A Rh Positive 04/07/2024 2:10 AM CYBER ANALYST [facility]INOIntercept PharmaceuticalsCENTRAL LAB BLOOD BANK ANTIBODY SCREEN Negative Negative 04/07/2024 2:10 AM CYBER ANALYST [facility] SPECIMEN EXPIRATION DATE/TIME 04/10/24 23:59 04/07/2024 2:10 AM CYBER ANALYST [facility] TELOS [facility] LAB BLOOD BANK Blood BLOOD SPECIMEN / Unknown Butterfly / Unknown 04/07/2024 12:39 AM CYBER ANALYST 04/07/2024 1:05 AM CYBER ANALYST Guille Choi WE[employer]S AND MEASURES SEALER BLOOD BANK Final Result Performing Organization Address [facility]/ZIP Co de Phone Number [facility] BLOOD BANK [address] [place] [address], [place] [phone] * (ABNORMAL) Iron plus iron binding cap AM (04/07/2024 12:39 AM CYBER ANALYST) IRON 57(L) 61 - 157 ug/dL 04/07/2024 2:03 AM CYBER ANALYST [facility] LABORATORY UIBC (UNSATURATED) 229 112 - 347 ug/dL 04/07/2024 2:03 AM CYBER ANALYST [facility] LABORATORY IRON BINDING CAPACITY 286 250 - 400 ug/dL 04/07/2024 2:03 AM CYBER ANALYST [facility] LABORATORY IRON,% SATURATION 20 14 - 50 % 04/07/2024 2:03 AM CYBER ANALYST [facility] LABORATORY Blood BLOOD SPECIMEN / Unknown Butterfly / Unknown 04/07/2024 12:39 AM CYBER ANALYST 04/07/2024 1:05 AM CYBER ANALYST Parmjit Berrios MD CHEMISTRY Final Resul t Performing Organization Address [facility] Co de Phone Number [facility] LABORATORY [address] [place] [address], * (ABNORMAL) Reticulocyte count AM (04/07/2024 12:39 AM CYBER ANALYST) RETIC% 2.3(H) 0.5 - 1.5 % 04/07/2024 1:35 AM CYBER ANALYST [facility] TRA LABORATORY RETIC (ABSOLUTE) 0.09(H) 0.03 - 0.08 mil/cu mm 04/07/2024 1:35 AM CYBER ANALYST [facility] TRA LABORATORY Blood BLOOD SPECIMEN / Unknown Butterfly / Unknown 04/07/2024 12:39 AM CYBER ANALYST 04/07/2024 1:05 AM CYBER ANALYST us Parmjit Berrios MD HEMATOLOGY Final Resul t Performing Organization Address City/[facility]/ZIP Co de Phone Number [facility] LABORATORY [address] [place] [phone], [place] * Ferritin AM (04/07/2024 12:39 AM CYBER ANALYST) FERRITIN 275.0 30.0 - 400.0 ng/mL 04/07/2024 1:58 AM CYBER ANALYST [facility] LABORATORY Blood BLOOD SPECIMEN / Unknown Butterfly / Unknown 04/07/2024 12:39 AM CYBER ANALYST 04/07/2024 1:05 AM CYBER ANALYST us Parmjit Berrios MD CHEMISTRY Final Resul t Performing Organization Address [facility] [place] Co de Phone Number [facility] [address] [place] [address], [place] * (ABNORMAL) COMP METABOLIC PANEL (04/07/2024 12:39 AM CYBER ANALYST) SODIUM 131(L) 136 - 145 mmol/L 04/07/2024 1:30 AM [facility] POTASSIUM 3.8 3.5 - 5.1 mmol/L 04/07/2024 1:30 AM [facility] CHLORIDE 86(L) 98 - 107 mmol/L 04/07/2024 1:30 AM [facility] CO2,TOTAL 23 22 - 29 mmol/L 04/07/2024 1:30 AM [facility] ANION GAP 22(H) 5 - 18 04/07/2024 1:30 AM [facility] GLUCOSE 110(H) 70 - 99 mg/dL 04/07/2024 1:30 AM [facility] CALCIUM 9.1 8.8 - 10.4 mg/dL 04/07/2024 1:30 AM [facility] Comment: Reference ranges for this test were updated on 01/06/2024 to reflect our healthy population more accurately. Reference range changes are not retroactively applied to results, but previous results using the same methodology can be interpreted in the context of the new reference range. BUN 94(H) 8 - 23 mg/dL 04/07/2024 1:[address] [facility] CREATININE 2.41(H) 0.70 - 1.20 mg/dL 04/07/2024 1:[address] [facility] BUN/CREAT RATIO 39(H) 10 - 20 1:[address] [facility] eGFR 28(L) >90 mL/min/1. 73m2 04/07/2024 1:[address] [facility] Comment:As of 2021, eG FR is calculated by the CKD-EPI creatinine equation without race adjustment. eGFR can be influenced by muscle mass, exercise, and diet. The reported eGFR is an estimation only and is only applicable if the renal function is stable. ALBUMIN 3.8(L) 4.0 - 4.9 g/dL 04/07/2024 1:30 AM [facility] PROTEIN,TOTAL 6.4 6.0 - 8.0 g/dL 04/07/2024 1:[address] [facility] BILIRUBIN,TOTAL 0.7 0.0 - 1.2 mg/dL 04/07/2024 1:[address] [facility] ALK PHOSPHATASE 96 40 - 129 IU/L 04/07/2024 1:[address] [facility] ALT (SGPT) 9(L) 10 - 50 IU/L 04/07/2024 1:[address] [facility] AST (SGOT) 22 10 - 50 IU/L 04/07/2024 1:[address] [facility] Blood BLOOD SPECIMEN / Unknown Butterfly / Unknown 04/07/2024 12:39 AM CYBER ANALYST 04/07/2024 1:05 AM CYBER ANALYST us Guille Choi NP CHEMISTRY Final Result [facility] [address] [address], [place] * XR CHEST 1 VIEW PORTABLE (04/06/2024 8:19 PM CYBER ANALYST) Anatomical Region Laterality Modality HEART, THORAX, CHEST Computed Ra diography 04/06/2024 8:19 PM CYBER ANALYST Impressions 04/06/2024 8:48 PM CYBER ANALYST Stable size of cardiomediastinal silhouette with pacemaker/AICD leads overlying the right atrium and right ventricle. Likely pulmonary vascular congestion with subtle interstitial opacities in the lung bases, right greater than left, differential includes mild edema and atypical infectious/inflammatory process. No definite pleural effusion or pneumothorax. No acute bony abnormality. Narrative 04/06/2024 8:48 PM CYBER ANALYST For Patients: As a result of the Cures Act, medical imaging exams and procedure reports are released immediately into your electronic medical record. You may view this report before your referring provider. If you have questions, please contact your health care provider. EXAM: XR CHEST 1 VIEW PORTABLE LOCATION: [facility] DATE: 04/06/2024 INDICATION: Shortness of breath [...] EXAM: XR CHEST 1 VIEW PORTABLE LOCATION: [facility] DATE: 04/06/2024 INDICATION: Shortness of breath [...] * (ABNORMAL) TROPONIN I (04/06/2024 7:53 PM CYBER ANALYST) Only the most recent of2 resultswithin the time period is included. TROPONIN I KELLI 0.043(HH) <0.030 ng/mL 04/06/2024 8:31 PM CYBER ANALYST [facility] Blood BLOOD SPECIMEN / Unknown Venipuncture / Unknown 04/06/2024 7:53 PM CYBER ANALYST 04/06/2024 7:59 PM CYBER ANALYST us Jhon Ramirez MD CHEMISTRY Final Result [facility] [address] [place] [address], * BEDSIDE US STUDY ARCHIVE (04/06/2024 3:07 PM CYBER ANALYST) Narrative Charly Monroe MD - 04/06/2024 3:07 PM CYBER ANALYST Jun Mar MD 04/06/2024 3:08 PM BEDSIDE [...] CBC WITH AUTO DIFFERENTIAL (04/06/2024 2:45 PM CYBER ANALYST) Pathologist [facility] WHITE BLOOD COUNT 12.6 4.5 - 13.5 thou/cu mm 04/06/2024 3:10 PM CYBER ANALYST [facility] RED BLOOD COUNT 4.39(L) 4.70 - 6.10 mil/cu mm 04/06/2024 3:[address] [facility] HEMOGLOBIN 13.0(L) 13.5 - 17.5 g/dL 04/06/2024 3:[address] [facility] HEMATOCRIT 39.5(L) 42.0 - 52.0 % 04/06/2024 3:[address] [facility] MCV 90 80 - 94 fL 04/06/2024 3:[address] [facility] MCH 29.6 27.0 - 31.0 pg 04/06/2024 3:[address] [facility] MCHC 32.9(L) 33.0 - 36.0 g/dL 04/06/2024 3:[address] [facility] RDW 17.4(H) 11.6 - 14.8 % 04/06/2024 3:[address] [facility] PLATELET COUNT 341 130 - 400 thou/cu mm 04/06/2024 3:[address] [facility] MPV 10.6(H) 7.4 - 10.4 fL 04/06/2024 3:[address] [facility] NRBC 0.0 0.0 - 0.9 % 04/06/2024 3:[address] [facility] % NEUT 85.1(H) 37.0 - 80.0 % 04/06/2024 3:[address] [facility] % LYMPH 5.6(L) 10.0 - 50.0 % 04/06/2024 3:[address] [facility] % MONO 6.8 0.0 - 12.0 % 04/06/2024 3:[address] [facility] % EOS 0.6 0.0 - 7.0 % 04/06/2024 3:[address] [facility] % BASO 0.4 0.0 - 2.5 % 04/06/2024 3:[address] [facility] % IMMATURE GRAN (METAS,MYELOS,NY OS) 1.5 % 04/06/2024 3:[address] [facility] ABSOLUTE NEUTROPHILS 10.7(H) 2.0 - 6.9 thou/cu mm 04/06/2024 3:[address] [facility] ABSOLUTE LYMPHOCYTES 0.7 0.6 - 3.4 thou/cu mm 04/06/2024 3:[address] [facility] ABSOLUTE MONOCYTES 0.9 0.0 - 1.0 thou/cu mm 04/06/2024 3:10 PM CYBER ANALYST [facility] ABSOLUTE EOSINOPHILS 0.1 <=0.7 thou/cu mm 04/06/2024 3:10 PM CYBER ANALYST [facility] ABSOLUTE BASOPHILS 0.1 <0.2 thou/cu mm 04/06/2024 3:10 PM CYBER ANALYST [facility] ABSOLUTE IMMATURE GRANULOCYTES(MET ,MYELOS,PROS) 0.2 <0.3 thou/cu mm 04/06/2024 3:10 PM CYBER ANALYST [facility] Blood BLOOD SPECIMEN / Unknown IV Start / Unknown 04/06/2024 2:45 PM CYBER ANALYST 04/06/2024 3:00 PM CYBER ANALYST us Jun Mar MD HEMATOLOGY Final Result Performing Organization Address City/[facility]/ZIP Co de Phone Number [place] [address] [place] [address], [place] [phone] * EXTRA TUBE GOLD/SST (04/06/2024 2:45 PM CYBER ANALYST) Blood BLOOD SPECIMEN / Unknown Extra Tube / Unknown 04/06/2024 2:45 PM CYBER ANALYST 04/06/2024 4:05 PM CYBER ANALYST us Charly Monroe MD LABORATORY Final Res ult Performing Organization Address [facility]/ZIP Co de Phone Number [place] [address] [place] [address], [place] [phone] * TSH WITH REFLEX (04/06/2024 2:45 PM CYBER ANALYST) TSH 3.73 0.35 - 4.94 uIU/mL 04/06/2024 3:43 PM CYBER ANALYST [facility] Blood BLOOD SPECIMEN / Unknown IV Start / Unknown 04/06/2024 2:45 PM CYBER ANALYST 04/06/2024 3:00 PM CYBER ANALYST us Jun Mar MD CHEMISTRY Final Result Performing Organization Address City/[facility]/ZIP Co de Phone Number [place] [address] [place] [address], [place] [phone] * (ABNORMAL) BRAIN NATRIURETIC PEPTIDE (04/06/2024 2:45 PM CYBER ANALYST) BRAIN JEANCARLOS PEPTIDE 993(H) <100 pg/mL 04/06/2024 3:30 PM CYBER ANALYST [facility] Blood BLOOD SPECIMEN / Unknown IV Start / Unknown 04/06/2024 2:45 PM CYBER ANALYST 04/06/2024 3:05 PM CYBER ANALYST Charly Monroe MD CHEMISTRY Final Res ult [facility] [address] [place] [address], * SLIDE REVIEW (04/06/2024 2:45 PM CYBER ANALYST) POIKILOCYTOSIS 1+ 04/06/2024 3:35 PM CYBER ANALYST [facility] POLYCHROMASIA 1+ 04/06/2024 3:35 PM CYBER ANALYST [facility] MORPHOLOGY COMMENT Ovalocytes Present 04/06/2024 3:35 PM CYBER ANALYST [facility] MORPHOLOGY COMMENT Stomatocytes Present 04/06/2024 3:35 PM CYBER ANALYST [facility] PLT COMMENT Adequate 04/06/2024 3:35 PM CYBER ANALYST [facility] Blood BLOOD SPECIMEN / Unknown IV Start / Unknown 04/06/2024 2:45 PM CYBER ANALYST 04/06/2024 3:00 PM CYBER ANALYST Jun Mar MD LABORATORY Final Result [facility] [address] [place] [address], * (ABNORMAL) Heparin Level ( aka XA) (04/06/2024 2:45 PM CYBER ANALYST) HEPARIN LEVEL <0.04(LL) 0.32 - 0.63 U/mL 04/06/2024 7:[address] [facility] Blood BLOOD SPECIMEN / Unknown IV Start / Unknown 04/06/2024 2:45 PM CYBER ANALYST 04/06/2024 6:09 PM CYBER ANALYST Jun Mar MD HEMATOLOGY Final Result [facility] [address] [place] [address], * APTT (04/06/2024 2:45 PM CYBER ANALYST) APTT 28 25 - 37 sec 04/06/2024 6:20 PM CYBER ANALYST [facility] Blood BLOOD SPECIMEN / Unknown IV Start / Unknown 04/06/2024 2:45 PM CYBER ANALYST 04/06/2024 6:09 PM CYBER ANALYST Narrative [facility] - 04/06/2024 6:20 PM CYBER ANALYST Therapeutic Range 64-83 seconds. Result [facility] us Jun Mar MD HEMATOLOGY Final Result [facility] [address] [place] [address], * SCAN-CARDIAC STRIP (04/06/2024 12:00 AM CYBER ANALYST) Narrative 04/06/2024 12:00 AM CYBER ANALYST Ordered by an unspecified provider. Other Clinical Staff OTHER Final Resul t * SCAN-CARDIAC STRIP (04/06/2024 12:00 AM CYBER ANALYST) Narrative 04/06/2024 12:00 AM CYBER ANALYST Ordered by an unspecified provider. Other Clinical Staff OTHER Final Resul t * SCAN-CARDIAC STRIP (03/22/2024 12:00 AM CYBER ANALYST) Narrative 03/22/2024 12:00 AM CYBER ANALYST Ordered by an unspecified provider. Other Clinical Staff OTHER Final Resul t * SCAN-CARDIAC STRIP (03/15/2024 12:00 AM CYBER ANALYST) Narrative 03/15/2024 12:00 AM CYBER ANALYST Ordered by an unspecified provider. us Other Clinical Staff OTHER Final Resul t * CT ABDOMEN PELVIS WO (01/16/2024 4:53 AM CYBER ANALYST) Anatomical Region Laterality Modality Abdomen, Pelvis, AORTA, LIVER, SPLEEN Computed Tomography 01/16/2024 4:53 AM CYBER ANALYST Impressions 01/16/2024 5:21 AM CYBER ANALYST 1. No obstructing ureteral or bladder calculi. [...] fat-containing umbilical hernia. Narrative 01/16/2024 5:21 AM CYBER ANALYST For Patients: As a result of the Cures Act, medical imaging exams and procedure reports are released immediately into your electronic medical record. You may view this report before your referring provider. If you have questions, please contact your health care provider. EXAM: CT ABDOMEN PELVIS WO LOCATION: [facility] DATE: 01/16/2024 INDICATION: Abdominal pain, [...] For Patients: As a result of the Century Cures Act, medical imagingexams and procedure reports are released immediately into your electronicmedical record. You may view this report before your referring provider.If you have questions, please contact your health care provider. EXAM: CT ABDOMEN PELVIS WO LOCATION: [facility] DATE: 01/16/2024 INDICATION: Abdominal pain, [...] 105 <=200 mg/dL 11/20/2023 3:06 PM CDT [facility] TRIGLYCERIDES 103 <150 mg/dL 11/20/2023 3:06 PM CDT [facility] HDL CHOLESTEROL 33(L) >40 mg/dL 3:06 PM CDT [facility] CHOL/HDL RATIO 3.18 <=4.00 11/20/2023 3:06 PM CDT [facility] LDL CHOLESTEROL 51 <=130 mg/dL 11/20/2023 3:06 PM CDT [facility] PATIENT STATUS NON-FASTI NG 11/20/2023 3:06 PM CDT [facility] Blood BLOOD SPECIMEN / Unknown Venipuncture / Unknown 11/20/2023 1:57 PM CDT 11/20/2023 2:09 PM CDT us Shana Lozano DO CHEMISTRY Final Result [place] [address] [place] [address], * CT CHEST SCREENING LOW DOSE WO [...] DOSE LUNG CANCER SCREENING CT CHEST LOCATION: [facility] DATE: 08/07/2023 INDICATION: Lung cancer screening. [...] DOSE LUNG CANCER SCREENING CT CHEST LOCATION: [facility] DATE: 08/07/2023 INDICATION: Lung cancer screening. [...] screening with low-dose CTchest in 12 months. Shoka.me Trang Lozano DO CT Final Result * ANTI HCV (06/11/2022 2:16 PM CDT) [facility] HEPATITIS C ANTIBODY Non-Reacti ve Non-React lisa 06/11/2022 4:14 PM CDT [facility] Comment:Antibodies to HCV no t detected; does not exclude the possibility of exposure to HCV. Blood BLOOD SPECIMEN / Unknown Venipuncture / Unknown 06/11/2022 2:16 PM CDT 06/11/2022 2:17 PM CDT [employer] Skarda DO SEND OUTS Final Result [facility] [address] [place] [address], * HM COLONOSCOPY (08/14/2011) COLONOSCOPY Done [facility] 08/14/2011 us Doctor Unknown HEALTH MAINT RESULTS Final Resul t [facility] [address] [place] [address], [place] [phone] from Last 3 Months or Most Recently Relevant to Health Maintenance Insurance [facility] DUAL COMPLETE MEDICARE PART A HB ONLY [facility] MR MEDICARE PART B HB ONLY [id number] [place] [id number] [facility] Advance Directives Documents on File Type Date Recorded Patient Pathology Laboratory Aides Teacher Expl anation Healthcare Directive 04/20/2024 5:43 AM [...] Code Status Discussion: Reviewed Preferences Care Teams Film Vault Supervisor Relationship Specialty Start Date End Date Sadi Paul MD [address] [place] [address] PCP - General Family Practice 05/13/24 [facility] [place] [address] [address] 04/21/24 [facility] [place] [address] [place] [address] 05/25/24
--- NOTE | 2024-06-09 03:13 | CRLHL7_ITS ---
For Patients: As a result of the Century Cures Act, medical imaging exams and procedure reports are released immediately into your electronic medical record. You may view this report before your referring provider. If you have questions, please contact your health care provider. INDICATION: Nausea, vomiting and weakness. Chronic kidney disease. COMPARISON: Portions of examination dated May 16, 2024 TECHNIQUE: CT examination of the abdomen and pelvis was performed without intravenous contrast. Thin section axial images were obtained from the lung bases through the pubic symphysis. Oral contrast was not administered. Please note that all CT scans at this facility use dose modulation, iterative reconstruction, and/or weight-based dosing when appropriate to reduce radiation dose to as low as reasonably achievable. FINDINGS: LUNG BASES: Minimal bibasilar atelectasis. Small effusions, right greater than left. Air cysts likely representing emphysema. The effusions have slightly worsened. Heart size top-normal. Pacer. Vascular and valvular calcifications noted LIVER/BILIARY SYSTEM:The liver is normal in size and configuration without focal mass. No biliary ductal dilation. Hyperdense material within the gallbladder probably represents sludge.A small amount of perihepatic and perisplenic ascites is noted. ADRENALS: Normal non-contrast appearance KIDNEYS, URETERS and BLADDER:No hydronephrosis or hydroureter. Right renal cyst. Mildly distended but otherwise unremarkable appearing bladder. The prostate is mildly enlarged. SPLEEN:Normal non-contrast appearance. PANCREAS: Normal non-contrast appearance. RETROPERITONEUM and MESENTERY: There is no mass, adenopathy or aortic aneurysm. Atherosclerotic vascular calcification GASTROINTESTINAL SYSTEM: There is no evidence of diverticulitis, colitis, mechanical obstruction, or appendicitis. The small bowel as visualized appears normal.Fecal retention. Diverticulosis. PELVIS: No mass or adenopathy. Trace free fluid. OSSEOUS STRUCTURES and ABDOMINAL WALL: No acute osseous abnormality. Small fat containing umbilical hernia. Body wall edema. OTHER: Mild ascites which is new. No free air IMPRESSION: 1. Bibasilar atelectasis and small effusions, right greater than left. Emphysema. Effusions and atelectasis have worsened. 2. Hyperdense material within the gallbladder probably sludge. 3. Mild ascites and body wall edema which is new since the prior examination. 4. Other nonacute appearing findings as above Please note that all CT scans at this facility use dose modulation, iterative reconstruction, and/or weight-based dosing when appropriate to reduce radiation dose to as low as reasonably achievable. Dictated by Marino Winchester MD @ 06/09/2024 3:52:55 AM (Electronically Signed)
[2024-06-09 03:14] LABS: Basophils Absolute Auto 0.01 K/uL (0.00-0.30); Basophils Percent Auto 0.1 % (0.0-3.0); Hematocrit 40.1 % (37.0-53.0); Hemoglobin* 12.3 gm/dL (13.5-17.5); Immature Granulocytes Abs Auto 0.03 K/uL (0.00-0.30); Immature Granulocytes Pct Auto 0.4 %; Lactate* 2.2 mmol/L (0.5-1.9); Lymphocytes Percent Auto 5.8 % (20-44); Mean Corpuscular HGB Conc 31 gm/dL (32-36); Mean Corpuscular Hemoglobin 27 pg (26-34); Mean Corpuscular Volume 86 fL (80-100); Neutrophils Percent Auto 86.7 % (42.0-72.0); Platelet Count* 192 K/uL (140-440); RDW Coefficient of Variation % 20.7 % (11.5-15.5); Red Blood Count 4.64 m/uL (4.30-5.90); White Blood Count* 8.05 K/uL (4.50-11.00)
[2024-06-09 03:15] LABS: Slide Review Reflex No
[2024-06-09] MEDS: LACTATED RINGERS 500 ML 500 ML 250 ML IV (03:20)
--- NOTE | 2024-06-09 03:20 | ED_ITS ---
HPI - General Adult General Chief complaint: Nausea/Vomiting Stated complaint: Light headedness Time Seen by Provider: 06/09/24 03:01 Source: patient, family and EMS Mode of arrival: EMS Limitations: physical limitation and other (Dementia) History of Present Illness HPI narrative: 73-year-old male presents with his daughter and EMS to the emergency department for weakness, nausea and vomiting. Patient has had significant physical decline and according to records is considering hospice services. He has significant comorbid heart failure and severe mitral regurgitation. EF is estimated less than 20%. He is on a continuous dobutamine pump. He last saw cardiology just a couple of days ago. He has been having nausea and vomiting with worsening weakness over the past 24 hours. No bloody vomit, no bloody stools. Does have a prior history of an appendectomy but no other abdominal surgeries per his report. He is not an ideal historian but his daughter is very helpful at feeling and details. He had been living independently until a few months ago when he moved in with his daughter. He has home health services and she cares for him considerably. She has not noticed any diarrhea. No fever. Patient was last evaluated in the ED 6 days ago for foot pain. Suspected that he was having a mild gout flare. He was placed on a short course of prednisone that was not a candidate for NSAIDs due to stage 4 chronic kidney disease. And antibiotic was prescribed if redness worsened, it did not, therefore the Duricef was never picked up. No obvious sick contacts. No pertinent travel. Daughter does not believe there is a history of C diff for other major intra-abdominal infection. He is anticoagulated on Coumadin for history of AFib. Am able to find a recent cardiology note and it looks like his renal function has been worsening over the last few months as well. Patient is getting gradually weaker, able to perform less of his own ADLs but seems accelerated while he is acutely ill currently. Has had several falls over the last few weeks, none with any serious injury. No fever. Patient does report diffuse lower abdominal pain that he is unable to localize for me. He is very vague in his description. Was hospitalized within the last few weeks at [facility] for cardiac issues and did subsequently have GI bleed. Sounds like it was found to be secondary to inflammation and an upper GI bleeding source. More time to review those outside records can be given if needed. Medical history notable for very advanced heart failure with reduced ejection fraction, estimated to be around 20%. Severe mitral regurgitation, stage 4 chronic kidney disease, type 2 diabetes, AFib, sleep apnea, obesity, chronic anemia and cognitive impairment. Medications are reviewed and listed as accurate in comparison to recent notes from his cardiology team. Nonsmoker. ROS notable for the GI symptoms and chronic worsening of multiple comorbid medical conditions. Acutely also with weakness, otherwise seemingly stable times 12 systems. There has been interval improvement in the foot symptoms since last visit. Related Data Home Medications ?Medication ?Instructions ?Recorded ?Confirmed acetaminophen 500 mg tablet 1,000 mg PO HS 05/17/24 06/09/24 albuterol sulfate 90 mcg/actuation 2 puff inhalation Q6H PRN 05/17/24 06/09/24 aerosol inhaler amiodarone 200 mg tablet 200 mg PO DAILY 05/17/24 06/09/24 dobutamine See Rx Instructions .Route .COMPLEX 05/17/24 06/09/24 pramipexole 0.25 mg tablet 0.125 mg PO HS 05/17/24 06/09/24 torsemide 20 mg tablet 20 mg PO DAILY PRN 05/17/24 06/09/24 dobutamine 250 mg/250 mL (1 mg/mL) ml continuous IV infusion 06/08/24 06/08/24 in 5 % dextrose intravenous Previous Rx's ?Medication ?Instructions ?Recorded midodrine 2.5 mg tablet 2.5 mg PO TID #90 tabs 05/29/24 warfarin 1 mg tablet 1 mg PO DAILY #90 tabs 05/29/24 atorvastatin 40 mg tablet 40 mg PO DAILY #90 tabs 06/02/24 pantoprazole 40 mg tablet,delayed 40 mg PO BID #60 tabs 06/02/24 release ondansetron 4 mg disintegrating 4 mg PO Q6H PRN nausea and 06/08/24 tablet vomiting #60 tabs Allergies Allergy/AdvReac Type Severity Reaction Status Date / Time codeine Allergy Severe dizzniness/ Verified 06/09/24 03:02 nausea PFSH PFSH Medical History Hyperlipidemia ?E78.5 - Hyperlipidemia, unspecified (ICD-10) History of tobacco use ?Z87.891 - Personal history of nicotine dependence (ICD-10) History of atrial fibrillation ?Z86.79 - Personal history of other diseases of the circulatory system (ICD- 10) Gout ?M10.9 - Gout, unspecified (ICD-10) Severe mitral regurgitation by prior echocardiogram ?I34.0 - Nonrheumatic mitral (valve) insufficiency (ICD-10) Chronic heart failure with reduced ejection fraction (HFrEF, <= 40%) ?I50.22 - Chronic systolic (congestive) heart failure (ICD-10) Ischemic cardiomyopathy (12/07/20) ?I25.5 - Ischemic cardiomyopathy (ICD-10) Chronic kidney disease, stage 3b (06/19/23) ?N18.32 - Chronic kidney disease, stage 3b (ICD-10) Cardiogenic shock (04/07/24) ?R57.0 - Cardiogenic shock (ICD-10) Atrial fibrillation with rapid ventricular response (04/07/24) ?I48.91 - Unspecified atrial fibrillation (ICD-10) Acute on chronic systolic and diastolic heart failure, NYHA class 3 (04/07/24) ?I50.43 - Acute on chronic combined systolic (congestive) and diastolic (congestive) heart failure (ICD-10) Acute GI bleeding (04/07/24) ?K92.2 - Gastrointestinal hemorrhage, unspecified (ICD-10) Surgical History Status post appendectomy ?Z90.49 - Acquired absence of other specified parts of digestive tract (ICD- 10) Status post lumbar laminectomy ?Z98.890 - Other specified postprocedural states (ICD-10) Status post coronary artery stent placement ?Z95.5 - Presence of coronary angioplasty implant and graft (ICD-10) Family History Mother Breast cancer Father Colon cancer Social History Narrative: . Single. 2 children. Now lives with daughter and grandson. Recently moved from [place], where he was living alone, independently. Retired. Designates daughter, Chan, as medical decision maker if he is not able to speak on his own behalf, . DNR DNI resuscitation status. [place] [facility] [place] [facility] [place]. Considering the possibility of hospice services. Former smoker. Does not drink alcohol. What is your current living situation?: I presently have a place to live Problems where you live: no known problems Problems where you live details: N/A In the past 12 months, utilities in danger of being shut off: no In past 12 months, lack of transportation kept you from medical appts, meetings, work, or getting things needed for daily living: no In the past 12 mos, have been you worried that your food would run out before you had money to buy more?: never true In the past 12 mos, the food you bought just didn't last and you didn't have money to buy more?: never true Highest level of school completed/degree received: Associate degree: occupational, technical, vocational program Smoking Status: Never smoker Do you use any of these nicotine containing products: None Second hand tobacco smoke exposure: No How often do you have a drink containing alcohol: never How often do you have six or more drinks on one occasion: Never AUDIT-C Alcohol total score: 0 Non-prescribed substance use: denies use Caffeine: No How often does anyone, including family, friends and others, physically hurt you : never How often does anyone, including family, friends and others, insult or talk down to you: never How often does anyone, including family, friends and others, threaten you with harm: never How often does anyone, including family, friends and others, scream or curse at you: never service: No Exam Const: Vital Signs, click to edit/add: Vital Signs - 24 hr 06/09/24 02:56 06/09/24 03:29 06/09/24 03:31 Temperature 97.9 F Pulse Rate 83 Pulse Rate [Pulse Oximeter] 76 Respiratory Rate 18 16 Blood Pressure 116/79 Blood Pressure [Ri ght Upper Arm] 104/75 Pulse Oximetry 98 97 Oxygen Delivery Me thod Room Air 06/09/24 03:31 Temperature Pulse Rate 83 Pulse Rate [Pulse Oximeter] Respiratory Rate 19 Blood Pressure 116/82 Blood Pressure [Ri ght Upper Arm] Pulse Oximetry 98 Oxygen Delivery Me thod Documenting provider has reviewed patient's vital signs: yes Other: Calm and cooperative with exam, hard of hearing. Limited insight. Daughter is present and helpful. He does appear clean, well nourished. Color is slightly sallow and pale but he does not appear diaphoretic. HENMT: Common normals: normocephalic, moist oral mucous membranes and oropharynx normal Head and scalp: normocephalic Eye: Common normals: conjunctivae normal General eye: normal appearance of both eyes Conjunctiva: conjunctiva(e) normal Neck & C-Spine: Common normals: no lymphadenopathy General: normal visual inspection Chest: Common normals: inspection of chest normal Resp: Common normals: normal respiratory effort Other: Breath sounds decreased at the bases but no obvious crackle or wheeze. Cardio: Other: Heart rate does sound regular today with a mid systolic murmur. Somewhat distant but no obvious gallop. GI: Other: Poor abdominal muscle tone allows for deep exam. Soft with no signs of point tenderness. Certainly no rebound tenderness or guarding. No mass. Bowel sounds do sound normoactive. Extremity: Common normals: normal to inspection and normal capillary refill Other: Trace bilateral edema. Other than chronic osteoarthritic changes, that is not appear to be any acute redness or swelling to the feet, specifically the right 1st MTP area that was abnormal last week. Neuro: Other: Global generalized weakness, no focal asymmetric weakness in arms compared to legs. Psych: Appearance: grossly normal Attitude: calm Other: Masked face ease, limited insight. Poor memory recall, limited judgment. No agitation. Skin: Narrative: Bruises in various stages appear consistent with minor mechanical injury and are not giving suspicion for elder abuse. Course Course ED Course: 73-year-old male with very advanced heart failure and chronic kidney disease presenting with nausea and vomiting. Differential diagnosis including acute bowel obstruction, gastroenteritis, dehydration, sepsis, urinary infection, gallbladder disease, ischemic bowel, GI bleed, medication side effect, amongst many others. He is high risk for dehydration but unfortunately is not a good candidate for rapid IV fluids due to his severe heart failure. Will obtain CT of the abdomen and pelvis without contrast knowing that this may be of limited utility because of our inability to use contrast. He has significant weakness and may require hospitalization. Labs to look for typical intra-abdominal pathology, EKG. Will give 500 of LR over 2 hours. Received 4 of Zofran and 125 mcg of droperidol from EMS and currently is not vomiting with these interventions. Will continue to see if these have good affect prior to administration of other medications. Will likely require hospitalization. I do not think he would necessarily require transfer because it seems as though his care goals of being DNR/DNI with limited intervention seem appropriate for his clinical condition but will need to consider this more closely based on pathology found. Reevaluation(s) Time of Reevaluation #1: 04:14 Reevaluation #1: CT imaging showing a distended gallbladder with what appears to be sludge, cannot really tell if the wall is thickened due to a noncontrast CT. The droperidol and Zofran have seemed helpful at reducing the patient's vomiting, he has had no further episodes here in the ED. We do have gentle IV fluids running. Pressures have been stable. CT imaging also shows worsening of ascites and worsening of pleural effusions. His renal function is worsening significantly over the last month, creatinine steadily climbing from around 2 to 2.4 and now 2.6. Overall signs that the dobutamine pump is just not keeping up with his needs and he is having signs of hypoperfusion to his organs. Patient has seen Cardiology with the last 48 hours it sounds as though they are giving him the same impression. Certainly the gallbladder could be the etiology of the abdominal symptoms but the ascites and just the general failure of his heart and other organs could be contributing as well. He is too weak to go home daughter and patient agree. We discussed hospice. They are open to considering this. What I recommended is that we give things 12-24 hours. We do the 0.5 L of IV fluids that is planned and then we saline lock. We will call the Zofran in droperidol successful for now. We will see if he is able to tolerate oral fluids hospitalized and if his strength improves. But if it does not, the family really does seem committed to hospice. I mention that consideration of turning off the dobutamine drip if his clinical condition worsens or if he is not showing signs of improvement in a day and they were comfortable with approaching that plan as well. I have spoken with hospitalist and he is in agreement of a trial of IV fluids, medication management and seeing more things go with an intent of comfort cares if unsuccessful. Patient is not a candidate for a drain or surgical management of this gallbladder. Because of this, I can not recommend that we would even do an ultrasound as that would all be used in decision making regarding surgical management. I think watchful waiting and monitoring of clinical condition and symptoms is the smartest approach and the family is in agreement. Re-evaluate mid day and decide on next steps and plan. All were comfortable with this idea. Vital Signs Vital signs: Initial Vital Signs Temperature 97.9 F 06/09/24 02:56 Temperature Source Temporal Artery Scan 06/09/24 02:56 Pulse Rate 76 06/09/24 02:56 Respiratory Rate 18 06/09/24 02:56 Blood Pressure 104/75 06/09/24 02:56 Blood Pressure Mean 84 06/09/24 02:56 Blood Pressure Position Sitting 06/09/24 02:56 Oxygen Delivery Method Room Air 06/09/24 02:56 Vital Signs Temperature 97.9 F 06/09/24 02:56 Pulse Rate 76 06/09/24 02:56 Respiratory Rate 18 06/09/24 02:56 Blood Pressure 104/75 06/09/24 02:56 Oxygen Delivery Method Room Air 06/09/24 02:56 Temperature 97.9 F 06/09/24 02:56 Pulse Rate 83 06/09/24 03:31 Respiratory Rate 19 06/09/24 03:31 Blood Pressure 116/82 06/09/24 03:31 Pulse Oximetry 98 06/09/24 03:31 Oxygen Delivery Method Room Air 06/09/24 02:56 Medications Administered Medications: Generic Name Dose Route Start Last Admin Trade Name Freq PRN Reason Stop Dose Admin Lactated Ringer's 500 mls @ 250 mls/hr 06/09/24 03:14 06/09/24 03:20 Lactated Ringers 500 Ml IV 06/09/24 05:13 250 mls/hr .Q2H ONE Administration Medical Decision Making Lab Data Lab results reviewed: Yes I reviewed the patient's lab results Lab results narrative: No leukocytosis, hemoglobin is stable. Liver enzymes show a mild elevation in bilirubin compared to previous but other LFTs look pretty stable. Creatinine continues to worsen steadily over the last month. Inflammatory markers are negative. Labs: Lab Results 06/09/24 06/09/24 Range/Units 03:10 03:30 WBC 8.05 (4.50-11.00) K/uL RBC 4.64 (4.30-5.90) m/uL Hgb 12.3 L (13.5-17.5) gm/dL Hct 40.1 (37.0-53.0) % MCV 86 (80-100) fL MCH 27 (26-34) pg MCHC 31 L (32-36) gm/dL RDW Coeff of Dia 20.7 H (11.5-15.5) % Plt Count 192 (140-440) K/uL Neut % (Auto) 86.7 H (42.0-72.0) % Lymph % (Auto) 5.8 L (20-44) % Jessamine % (Auto) 7.0 (0.0-11.0) % Eos % (Auto) 0.0 (0.0-7.0) % Baso % (Auto) 0.1 (0.0-3.0) % Neut # (Auto) 7.00 (1.7-7.0) K/uL Lymph # (Auto) 0.50 L (0.90-2.90) K/uL Jessamine # (Auto) 0.60 (0.00-0.90) K/UL Eos # (Auto) 0.00 (0.00-0.50) K/uL Baso # (Auto) 0.01 (0.00-0.30) K/uL Abs Immat Gran (auto) 0.03 (0.00-0.30) K/uL Imm/Tot Granulo (auto) 0.4 % INR 2.36 H (0.91-1.10) Sodium 138 (135-149) mmol/L Potassium 3.6 (3.6-5.1) mmol/L Chloride 99 (96-114) mmol/L Carbon Dioxide 24 (20-32) mmol/L Anion Gap 15 (7-15) mEq/L BUN 58 H (7-30) mg/dL Creatinine 2.6 H (0.5-1.5) mg/dL Estimated Creat Clear 24.85 Estimated GFR 25 ml/min Glucose 125 H (60-115) mg/dL Lactate 2.2 H (0.5-1.9) mmol/L Calcium 8.8 (8.4-10.6) mg/dL Magnesium 2.4 (1.5-2.6) mg/dL Total Bilirubin 1.8 H (0.1-1.5) mg/dL AST 31 (12-35) U/L ALT 29 (4-50) U/L Alkaline Phosphatase 103 (40-150) U/L C-Reactive Protein < 0.5 L (0.5-1.0) mg/dL Total Protein 6.4 (6.0-8.3) g/dL Albumin 4.2 (3.3-5.0) g/dL Lipase 68 (23-300) U/L Imaging Data CT scan - abdomen: Attestation: I have reviewed the pertinent imaging results. My impression: Gallbladder looks really distended. I am questioning some thickening in the superior area adjacent to the liver as I can see a darker fluid line but it is really difficult to tell without contrast in this IV. There is no obvious mass or obstruction I do appreciate more ascites and pleural effusion than previous CT. Radiologist's impression: IMPRESSION: 1. Bibasilar atelectasis and small effusions, right greater than left. Emphysema. Effusions and atelectasis have worsened. 2. Hyperdense material within the gallbladder probably sludge. 3. Mild ascites and body wall edema which is new since the prior examination. 4. Other nonacute appearing findings as above Please note that all CT scans at this facility use dose modulation, iterative reconstruction, and/or weight-based dosing when appropriate to reduce radiation dose to as low as reasonably achievable. Dictated by Marino Winchester MD @ 06/09/2024 3:52:55 AM Discharge Plan Discharge Clinical Impression: Acute dehydration, Biliary sludge, Acute nausea with nonbilious vomiting, Weakness Patient Disposition: Admitted As Observation Condition: Guarded
--- OUTSIDE RECORDS SUMMARY | 2024-06-09 03:39 | XMS_ITS | Clinical Summary ---
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 04/12/2024 6:39 PM NETWORK SUPPORT SPECIALIST COMPREHENSIVE BLOOD GAS MIXE D VENOUS Timed 04/12/2024 4:48 PM NETWORK SUPPORT SPECIALIST CVL OTHER PROCEDURE Routine 04/12/2024 4:09 PM NETWORK SUPPORT SPECIALIST Cardiovascular symptoms SCAN-CARDIAC STRIP 04/12/2024 3:27 PM NETWORK SUPPORT SPECIALIST US RENAL AND BLADDER COMPLETE Routine 2:51 PM NETWORK SUPPORT SPECIALIST GLUCOSE METER Timed 04/12/2024 11:55 AM NETWORK SUPPORT SPECIALIST ECHO NOEL WO CONTRAST W COLOR W LTD DOPPLER Routine 04/12/2024 10:52 AM NETWORK SUPPORT SPECIALIST EKG 12 LEAD Post Op 04/12/2024 10:49 AM NETWORK SUPPORT SPECIALIST EP OTHER PROCEDURE Routine 04/12/2024 10:48 AM NETWORK SUPPORT SPECIALIST GLUCOSE METER Timed 04/12/2024 7:30 AM NETWORK SUPPORT SPECIALIST HEPATIC FUNCTION PANEL [place] 6:31 AM NETWORK SUPPORT SPECIALIST BASIC METABOLIC PANEL Early AM 04/12/2024 6:31 AM NETWORK SUPPORT SPECIALIST MAGNESIUM Early AM 04/12/2024 6:31 AM NETWORK SUPPORT SPECIALIST SCAN-CARDIAC STRIP 04/12/2024 3:46 AM NETWORK SUPPORT SPECIALIST SCAN-OPERATIVE/PROCEDURE REPORT 04/12/2024 12:00 AM NETWORK SUPPORT SPECIALIST GLUCOSE METER Timed 04/11/2024 9:47 PM NETWORK SUPPORT SPECIALIST SCAN-CARDIAC STRIP 04/11/2024 8:21 PM NETWORK SUPPORT SPECIALIST GLUCOSE METER Timed 04/11/2024 5:24 PM NETWORK SUPPORT SPECIALIST SCAN-CARDIAC STRIP 04/11/2024 4:18 PM NETWORK SUPPORT SPECIALIST GLUCOSE METER Timed 04/11/2024 11:31 AM NETWORK SUPPORT SPECIALIST HEMOGLOBIN Today 04/11/2024 10:12 AM NETWORK SUPPORT SPECIALIST MAGNESIUM [place] 04/11/2024 10:12 AM NETWORK SUPPORT SPECIALIST BASIC METABOLIC PANEL Early AM 04/11/2024 10:12 AM NETWORK SUPPORT SPECIALIST SCAN-CARDIAC STRIP 04/11/2024 7:48 AM NETWORK SUPPORT SPECIALIST GLUCOSE METER Timed 04/11/2024 7:44 AM NETWORK SUPPORT SPECIALIST GLUCOSE METER Timed 04/10/2024 9:22 PM NETWORK SUPPORT SPECIALIST POTASSIUM Timed 04/10/2024 6:20 PM NETWORK SUPPORT SPECIALIST GLUCOSE METER Timed 04/10/2024 5:09 PM NETWORK SUPPORT SPECIALIST SCAN-CARDIAC STRIP 04/10/2024 4:04 PM NETWORK SUPPORT SPECIALIST POTASSIUM Timed 04/10/2024 1:24 PM NETWORK SUPPORT SPECIALIST GLUCOSE METER Timed 04/10/2024 12:37 PM NETWORK SUPPORT SPECIALIST SCAN-CARDIAC STRIP 04/10/2024 10:29 AM NETWORK SUPPORT SPECIALIST GLUCOSE METER Timed 04/10/2024 8:26 AM NETWORK SUPPORT SPECIALIST MAGNESIUM [place] 04/10/2024 8:09 AM NETWORK SUPPORT SPECIALIST BASIC METABOLIC PANEL Early AM 04/10/2024 8:09 AM NETWORK SUPPORT SPECIALIST SCAN-CARDIAC STRIP 04/10/2024 5:01 AM NETWORK SUPPORT SPECIALIST GLUCOSE METER Timed 04/09/2024 9:07 PM NETWORK SUPPORT SPECIALIST POTASSIUM Timed 04/09/2024 7:56 PM NETWORK SUPPORT SPECIALIST SCAN-CARDIAC STRIP 04/09/2024 7:40 PM NETWORK SUPPORT SPECIALIST GLUCOSE METER Timed 04/09/2024 5:26 PM NETWORK SUPPORT SPECIALIST SCAN-CARDIAC STRIP 04/09/2024 3:40 PM NETWORK SUPPORT SPECIALIST GLUCOSE METER Timed 04/09/2024 8:14 AM NETWORK SUPPORT SPECIALIST BASIC METABOLIC PANEL Early AM 04/09/2024 8:10 AM NETWORK SUPPORT SPECIALIST GLUCOSE METER Timed 04/08/2024 9:15 PM NETWORK SUPPORT SPECIALIST GLUCOSE METER Timed 04/08/2024 4:52 PM NETWORK SUPPORT SPECIALIST POTASSIUM Timed 04/08/2024 2:45 PM NETWORK SUPPORT SPECIALIST GLUCOSE METER Timed 04/08/2024 1:00 PM NETWORK SUPPORT SPECIALIST PATH TISSUE EXAM Today 04/08/2024 12:39 PM NETWORK SUPPORT SPECIALIST ESOPHAGOGASTRODUODENOSCOPY W ITH BIOPSY 04/08/2024 12:13 PM NETWORK SUPPORT SPECIALIST melena GLUCOSE METER Timed 04/08/2024 11:09 AM NETWORK SUPPORT SPECIALIST ENDOSCOPY 04/08/2024 9:49 AM NETWORK SUPPORT SPECIALIST GLUCOSE METER Timed 04/08/2024 8:00 AM NETWORK SUPPORT SPECIALIST EXTRA TUBE BLUE Today 04/08/2024 6:45 AM NETWORK SUPPORT SPECIALIST EXTRA TUBE LAVENDER Today 04/08/2024 6:45 AM NETWORK SUPPORT SPECIALIST PRO-BNP Early AM 04/08/2024 6:45 AM NETWORK SUPPORT SPECIALIST BASIC METABOLIC PANEL Early AM 04/08/2024 6:45 AM NETWORK SUPPORT SPECIALIST SCAN-CARDIAC STRIP 04/07/2024 11:52 PM NETWORK SUPPORT SPECIALIST GLUCOSE METER Timed 04/07/2024 10:19 PM NETWORK SUPPORT SPECIALIST GLUCOSE METER Timed 04/07/2024 7:15 PM NETWORK SUPPORT SPECIALIST HEMOGLOBIN Timed 04/07/2024 6:10 PM NETWORK SUPPORT SPECIALIST DIGOXIN Timed 04/07/2024 1:50 PM NETWORK SUPPORT SPECIALIST HEMOGLOBIN Timed 04/07/2024 1:50 PM NETWORK SUPPORT SPECIALIST GLUCOSE METER Timed 04/07/2024 12:33 PM NETWORK SUPPORT SPECIALIST EKG 12 LEAD Routine 04/07/2024 10:01 AM NETWORK SUPPORT SPECIALIST URINALYSIS MICROSCOPIC Timed 9:48 AM NETWORK SUPPORT SPECIALIST UA W/ SEDIMENT EXAM REFLEXED PER CRITERIA Today 04/07/2024 9:48 AM NETWORK SUPPORT SPECIALIST COVID/FLU/RSV PANEL Today 04/07/2024 9:48 AM NETWORK SUPPORT SPECIALIST ICD ANALYSIS DUAL WITHOUT REPROGRAM Routine 04/07/2024 9:05 AM NETWORK SUPPORT SPECIALIST ECHO TTE LIMITED W CONTRAST W COLOR W DOPPLER Routine 04/07/2024 8:53 AM NETWORK SUPPORT SPECIALIST GLUCOSE METER Timed 04/07/2024 7:43 AM NETWORK SUPPORT SPECIALIST EXTRA TUBE BLUE Today 04/07/2024 6:23 AM NETWORK SUPPORT SPECIALIST LACTATE VENOUS Timed 04/07/2024 6:20 AM NETWORK SUPPORT SPECIALIST HEMOGLOBIN Timed 04/07/2024 6:20 AM NETWORK SUPPORT SPECIALIST MAGNESIUM Early AM 04/07/2024 6:20 AM NETWORK SUPPORT SPECIALIST SODIUM Early AM 04/07/2024 6:20 AM NETWORK SUPPORT SPECIALIST POTASSIUM Early AM 04/07/2024 6:20 AM NETWORK SUPPORT SPECIALIST CREATININE Early AM 04/07/2024 6:20 AM NETWORK SUPPORT SPECIALIST SCAN-CARDIAC STRIP 04/07/2024 5:29 AM NETWORK SUPPORT SPECIALIST SCAN-CARDIAC STRIP 04/07/2024 3:14 AM NETWORK SUPPORT SPECIALIST LACTATE VENOUS Timed 04/07/2024 2:58 AM NETWORK SUPPORT SPECIALIST GLUCOSE METER Timed 04/07/2024 1:49 AM NETWORK SUPPORT SPECIALIST TYPE & SCREEN Today 04/07/2024 12:39 AM NETWORK SUPPORT SPECIALIST FERRITIN [place] 04/07/2024 12:39 AM NETWORK SUPPORT SPECIALIST IRON PLUS IRON BINDING CAP [place] 04/07 12:39 AM NETWORK SUPPORT SPECIALIST RETICULOCYTES [place] 04/07/2024 12:39 AM NETWORK SUPPORT SPECIALIST LACTATE VENOUS Today 04/07/2024 12:39 AM NETWORK SUPPORT SPECIALIST COMP METABOLIC PANEL STAT 04/07/2024 12:39 AM NETWORK SUPPORT SPECIALIST CBC W PLT NO DIFF STAT 04/07/2024 12:39 AM NETWORK SUPPORT SPECIALIST XR CHEST 1 VIEW PORTABLE STAT 025 8:19 PM NETWORK SUPPORT SPECIALIST TROPONIN I STAT 04/06/2024 7:53 PM NETWORK SUPPORT SPECIALIST BASIC METABOLIC PANEL STAT 04/06/2024 7:53 PM NETWORK SUPPORT SPECIALIST EXTRA TUBE LAVENDER Today 04/06/2024 3:55 PM NETWORK SUPPORT SPECIALIST HEPATIC FUNCTION PANEL STAT 3:55 PM NETWORK SUPPORT SPECIALIST BEDSIDE US STUDY ARCHIVE Routine 025 3:07 PM NETWORK SUPPORT SPECIALIST HEPARIN LEVEL STAT 04/06/2024 2:45 PM NETWORK SUPPORT SPECIALIST APTT STAT 04/06/2024 2:45 PM NETWORK SUPPORT SPECIALIST PROTIME-INR STAT 04/06/2024 2:45 PM NETWORK SUPPORT SPECIALIST EXTRA TUBE GOLD/SST Today 04/06/2024 2:45 PM NETWORK SUPPORT SPECIALIST EXTRA TUBE BLUE Today 04/06/2024 2:45 PM NETWORK SUPPORT SPECIALIST SLIDE REVIEW STAT 04/06/2024 2:45 PM NETWORK SUPPORT SPECIALIST BRAIN NATRIURETIC PEPTIDE STAT 2024 2:45 PM NETWORK SUPPORT SPECIALIST CBC WITH AUTO DIFFERENTIAL STAT 04/06 2:45 PM NETWORK SUPPORT SPECIALIST TROPONIN I STAT 04/06/2024 2:45 PM NETWORK SUPPORT SPECIALIST TSH WITH REFLEX STAT 04/06/2024 2:45 PM NETWORK SUPPORT SPECIALIST MAGNESIUM STAT 04/06/2024 2:45 PM NETWORK SUPPORT SPECIALIST BASIC METABOLIC PANEL STAT 04/06/2024 2:45 PM NETWORK SUPPORT SPECIALIST CBC WITH AUTO DIFFERENTIAL STAT 04/06 2:45 PM NETWORK SUPPORT SPECIALIST EKG 12 LEAD STAT 04/06/2024 2:35 PM NETWORK SUPPORT SPECIALIST SCAN-CARDIAC STRIP 04/06/2024 12:00 AM NETWORK SUPPORT SPECIALIST SCAN-CARDIAC STRIP 04/06/2024 12:00 AM NETWORK SUPPORT SPECIALIST SCAN-CARDIAC STRIP 03/22/2024 12:00 AM NETWORK SUPPORT SPECIALIST SCAN-CARDIAC STRIP 03/15/2024 12:00 AM NETWORK SUPPORT SPECIALIST CT ABDOMEN PELVIS WO STAT 01/16/2024 4:53 AM NETWORK SUPPORT SPECIALIST LIPID PANEL W REFLEX MEASURE D LDL [...] 16,479(H) <125 pg/mL 06/01/2024 10:17 AM CDT [facility] Blood BLOOD SPECIMEN / Unknown Non-Lab Venipuncture / Unknown 06/01/2024 9:00 AM CDT 06/01/2024 9:48 AM CDT [facility] - 06/01/2024 10:17 AM CDT [...] Kendall MD SEND OUTS Final Res ult [facility] [address] [place] [address] * (ABNORMAL) BASIC METABOLIC PANEL (06/01/2024 9:00 AM CDT) Only the most recent of17 resultswithin the time period is included. SODIUM 138 136 - 145 mmol/L 06/01/2024 10:17 AM [facility] POTASSIUM 3.5 3.5 - 5.1 mmol/L 06/01/2024 10:17 AM [facility] CHLORIDE 98 98 - 107 mmol/L 06/01/2024 10:17 AM [facility] CO2,TOTAL 27 22 - 29 mmol/L 06/01/2024 10:17 AM [facility] ANION GAP 13 5 - 18 06/01/2024 10:17 AM [facility] GLUCOSE 116(H) 70 - 99 mg/dL 06/01/2024 10:17 AM [facility] CALCIUM 8.9 8.8 - 10.4 mg/dL 06/01/2024 10:17 AM [facility] Comment: Reference ranges for this test were updated on 01/06/2024 to reflect our healthy population more accurately. Reference range changes are not retroactively applied to results, but previous results using the same methodology can be interpreted in the context of the new reference range. BUN 38(H) 8 - 23 mg/dL 06/01/2024 10:17 AM [facility] CREATININE 2.42(H) 0.70 - 1.20 mg/dL 06/01/2024 10:17 AM [facility] BUN/CREAT RATIO 16 10 - 20 10:17 AM [facility] eGFR 28(L) >90 mL/min/1. 73m2 06/01/2024 10:17 AM [facility] Comment:As of 2021, eG [...] Lauro Kendall MD CHEMISTRY Final Res ult [facility] [address] [place] [address] * (ABNORMAL) PROTIME-INR (04/27/2024 10:26 AM NETWORK SUPPORT SPECIALIST) Only the most recent of9 resultswithin the time period is included. INR 2.4(H) 0.8 - 1.1 04/27/2024 11:18 AM NETWORK SUPPORT SPECIALIST [facility] Blood BLOOD SPECIMEN / Unknown Venipuncture / Unknown 04/27/2024 10:26 AM NETWORK SUPPORT SPECIALIST 04/27/2024 10:38 AM NETWORK SUPPORT SPECIALIST us Shana Lozano DO HEMATOLOGY Final Result [facility] [address] [place] [address], [place] [phone] * (ABNORMAL) Hepatic function panel AM (04/21/2024 6:15 AM NETWORK SUPPORT SPECIALIST) Only the most recent of11 resultswithin the time period is included. ALBUMIN 3.5(L) 4.0 - 4.9 g/dL 04/21/2024 6:57 AM NETWORK SUPPORT SPECIALIST [facility] PROTEIN,TOTAL 5.9(L) 6.0 - 8.0 g/dL 04/21/2024 6:57 AM NETWORK SUPPORT SPECIALIST [facility] BILIRUBIN,TOTAL 1.0 0.0 - 1.2 mg/dL 04/21/2024 6:57 AM NETWORK SUPPORT SPECIALIST [facility] BILIRUBIN,DIRECT 0.5(H) 0.0 - 0.2 mg/dL 04/21/2024 6:57 AM NETWORK SUPPORT SPECIALIST [facility] BILIRUBIN,INDIRE CT 0.5 0.2 - 0.8 mg/dL 04/21/2024 6:57 AM NETWORK SUPPORT SPECIALIST [facility] ALK PHOSPHATASE 158(H) 40 - 129 IU/L 04/21/2024 6:57 AM NETWORK SUPPORT SPECIALIST [facility] ALT (SGPT) 48 10 - 50 IU/L 04/21/2024 6:57 AM NETWORK SUPPORT SPECIALIST [facility] AST (SGOT) 18 10 - 50 IU/L 04/21/2024 6:57 AM NETWORK SUPPORT SPECIALIST [facility] Blood BLOOD SPECIMEN / Unknown Venipuncture / Unknown 04/21/2024 6:15 AM NETWORK SUPPORT SPECIALIST 04/21/2024 6:29 AM NETWORK SUPPORT SPECIALIST us Lauro Kendall MD CHEMISTRY Final Res ult [facility] [address] [place] [address], [place] * SCAN-CARDIAC STRIP (04/20/2024 11:03 PM NETWORK SUPPORT SPECIALIST) us Scanner OTHER Final Result * SCAN-CARDIAC STRIP (04/20/2024 7:32 PM NETWORK SUPPORT SPECIALIST) us Scanner OTHER Final Result * (ABNORMAL) CBC (04/20/2024 7:04 AM NETWORK SUPPORT SPECIALIST) Only the most recent of2 resultswithin the time period is included. WHITE BLOOD COUNT 8.1 4.5 - 11.0 thou/cu mm 04/20/2024 7:31 AM [facility] RED BLOOD COUNT 3.32(L) 4.30 - 5.90 mil/cu mm 04/20/2024 7:31 AM [facility] HEMOGLOBIN 9.6(L) 13.5 - 17.5 g/dL 04/20/2024 7:31 AM [facility] HEMATOCRIT 30.3(L) 37.0 - 53.0 % 04/20/2024 7:31 AM [facility] MCV 91 80 - 100 fL 04/20/2024 7:31 AM [facility] MCH 28.9 26.0 - 34.0 pg 04/20/2024 7:31 AM [facility] MCHC 31.7(L) 32.0 - 36.0 g/dL 04/20/2024 7:31 AM [facility] RDW 18.9(H) 11.5 - 15.5 % 04/20/2024 7:31 AM [facility] PLATELET COUNT 229 140 - 440 thou/cu mm 04/20/2024 7:31 AM [facility] MPV 10.9 6.5 - 11.0 fL 04/20/2024 7:31 AM [facility] NRBC 0.2 % 04/20/2024 7:31 AM [facility] ABS NRBC 0.0 thou /cu mm 04/20/2024 7:31 AM NETWORK SUPPORT SPECIALIST [facility] Blood BLOOD SPECIMEN / Unknown Venipuncture / Unknown 04/20/2024 7:04 AM NETWORK SUPPORT SPECIALIST 04/20/2024 7:20 AM NETWORK SUPPORT SPECIALIST Madonna Hedrick [employer] HEMATOLOGY Final Res ult Performing Organization Address [facility] Co de Phone Number [facility] [address] [place] [address], [place] * (ABNORMAL) Magnesium AM (04/20/2024 7:04 AM NETWORK SUPPORT SPECIALIST) Only the most recent of13 resultswithin the time period is included. MAGNESIUM 2.5(H) 1.6 - 2.4 mg/dL 04/20/2024 7:50 AM NETWORK SUPPORT SPECIALIST [facility] Blood BLOOD SPECIMEN / Unknown Venipuncture / Unknown 04/20/2024 7:04 AM NETWORK SUPPORT SPECIALIST 04/20/2024 7:20 AM NETWORK SUPPORT SPECIALIST Madonna Hedrick [employer] CHEMISTRY Final Res ult Performing Organization Address [facility] Co de Phone Number [facility] [address] [place] [address], [place] * (ABNORMAL) O2 SATURATION,MEASURED (04/20/2024 6:22 AM NETWORK SUPPORT SPECIALIST) Only the most recent of9 resultswithin the time period is included. O2 SATURATION,MANISH SURED 55 % 04/20/2024 6:38 AM NETWORK SUPPORT SPECIALIST [facility] HEMOGLOBIN,BLO OD GAS 10.0(L) 13.5 - 17.5 g/dL 04/20/2024 6:38 AM NETWORK SUPPORT SPECIALIST [facility] SOURCE, O2M Venous 04/20/2024 6:38 AM NETWORK SUPPORT SPECIALIST [facility] Blood BLOOD SPECIMEN / Unknown Non-Lab Venipuncture / Unknown 04/20/2024 6:22 AM NETWORK SUPPORT SPECIALIST 04/20/2024 6:34 AM NETWORK SUPPORT SPECIALIST Narrative [facility] - 04/20/2024 6:38 AM NETWORK SUPPORT SPECIALIST Reference Range for: Arterial Source (94-98) Non-Arterial Source (70-75) us Marylou Currie NP CHEMISTRY Final R esult Performing Organization Address [facility] de Phone Number [facility] [address] [address], [place] * SCAN-CARDIAC STRIP (04/19/2024 7:23 PM NETWORK SUPPORT SPECIALIST) us Scanner OTHER Final Result * SCAN-CARDIAC STRIP (04/19/2024 1:45 PM NETWORK SUPPORT SPECIALIST) us Scanner OTHER Final Result * (ABNORMAL) Hemoglobin AM (04/19/2024 6:57 AM NETWORK SUPPORT SPECIALIST) Only the most recent of8 resultswithin the time period is included. [facility] HEMOGLOBIN 10.3(L) 13.5 - 17.5 g/dL 04/19/2024 8:14 AM NETWORK SUPPORT SPECIALIST [facility] MCV 93 80 - 100 fL 04/19/2024 8:14 AM NETWORK SUPPORT SPECIALIST [facility] Blood BLOOD SPECIMEN / Unknown Non-Lab Venipuncture / Unknown 04/19/2024 6:57 AM NETWORK SUPPORT SPECIALIST 04/19/2024 8:09 AM NETWORK SUPPORT SPECIALIST us Deborah Lipscomb MD HEMATOLOGY Final R esult Performing Organization Address [facility] Co de Phone Number [facility] [address] [address], [place] * SCAN-CARDIAC STRIP (04/18/2024 10:04 PM NETWORK SUPPORT SPECIALIST) us Scanner OTHER Final Result * SCAN-CARDIAC STRIP (04/18/2024 5:43 PM NETWORK SUPPORT SPECIALIST) us Scanner OTHER Final Result * POTASSIUM (04/18/2024 12:45 PM NETWORK SUPPORT SPECIALIST) Only the most recent of11 resultswithin the time period is included. POTASSIUM 3.9 3.5 - 5.1 mmol/L 04/18/2024 1:14 PM NETWORK SUPPORT SPECIALIST [facility] Blood BLOOD SPECIMEN / Unknown Venipuncture / Unknown 04/18/2024 12:45 PM NETWORK SUPPORT SPECIALIST 04/18/2024 12:51 PM NETWORK SUPPORT SPECIALIST us Deborah Lipscomb MD CHEMISTRY Final R esult Performing Organization Address City/[facility]/ZIP Co de Phone Number [facility] [address] [place] [address], [place] * SCAN-CARDIAC STRIP (04/18/2024 7:46 AM NETWORK SUPPORT SPECIALIST) us Scanner OTHER Final Result * SCAN-CARDIAC STRIP (04/17/2024 11:49 PM NETWORK SUPPORT SPECIALIST) us Scanner OTHER Final Result * SCAN-CARDIAC STRIP (04/17/2024 9:12 PM NETWORK SUPPORT SPECIALIST) us Scanner OTHER Final Result * SCAN-CARDIAC STRIP (04/17/2024 7:41 AM NETWORK SUPPORT SPECIALIST) us Scanner OTHER Final Result * SCAN-CARDIAC STRIP (04/16/2024 11:25 PM NETWORK SUPPORT SPECIALIST) us Scanner OTHER Final Result * (ABNORMAL) ALT (SGPT) (04/16/2024 10:19 AM NETWORK SUPPORT SPECIALIST) ALT (SGPT) 201(H) 10 - 50 IU/L 04/16/2024 11:00 AM NETWORK SUPPORT SPECIALIST [facility] Blood BLOOD SPECIMEN / Unknown Butterfly / Unknown 04/16/2024 10:19 AM NETWORK SUPPORT SPECIALIST 04/16/2024 10:30 AM NETWORK SUPPORT SPECIALIST us Deborah Lipscomb MD CHEMISTRY Final R esult [facility] [address] [address], [place] * (ABNORMAL) AST (SGOT) (04/16/2024 10:19 AM NETWORK SUPPORT SPECIALIST) AST (SGOT) 58(H) 10 - 50 IU/L 04/16/2024 11:00 AM NETWORK SUPPORT SPECIALIST [facility] Blood BLOOD SPECIMEN / Unknown Butterfly / Unknown 04/16/2024 10:19 AM NETWORK SUPPORT SPECIALIST 04/16/2024 10:30 AM NETWORK SUPPORT SPECIALIST Deborah Lipscomb MD CHEMISTRY Final R esult Performing Organization Address [facility] Co de Phone Number [facility] [address] [place] [address], [place] * (ABNORMAL) ALK PHOSPHATASE (04/16/2024 10:19 AM NETWORK SUPPORT SPECIALIST) ALK PHOSPHATASE 157(H) 40 - 129 IU/L 04/16/2024 11:00 AM NETWORK SUPPORT SPECIALIST [facility] Blood BLOOD SPECIMEN / Unknown Butterfly / Unknown 04/16/2024 10:19 AM NETWORK SUPPORT SPECIALIST 04/16/2024 10:30 AM NETWORK SUPPORT SPECIALIST Deborah Lipscomb MD CHEMISTRY Final R esult Performing Organization Address [facility] Co de Phone Number [facility] [facility] [address] [id number], [place] * (ABNORMAL) BILIRUBIN DIRECT (04/16/2024 10:19 AM NETWORK SUPPORT SPECIALIST) BILIRUBIN,DIRE CT 0.6(H) 0.0 - 0.2 mg/dL 04/16/2024 11:00 AM NETWORK SUPPORT SPECIALIST [facility] Blood BLOOD SPECIMEN / Unknown Butterfly / Unknown 04/16/2024 10:19 AM NETWORK SUPPORT SPECIALIST 04/16/2024 10:30 AM NETWORK SUPPORT SPECIALIST Deborah Lipscomb MD CHEMISTRY Final R esult Performing Organization Address City/[facility]/ZIP Co de Phone Number [facility] [address] [address], [place] * SCAN-CARDIAC STRIP (04/16/2024 8:23 AM NETWORK SUPPORT SPECIALIST) us Scanner OTHER Final Result * (ABNORMAL) SODIUM (04/16/2024 8:09 AM NETWORK SUPPORT SPECIALIST) Only the most recent of2 resultswithin the time period is included. SODIUM 134(L) 136 - 145 mmol/L 04/16/2024 9:45 AM NETWORK SUPPORT SPECIALIST [facility] Daily [facility]SM[facility] Blood BLOOD SPECIMEN / Unknown Non-Lab Venipuncture / Unknown 04/16/2024 8:09 AM NETWORK SUPPORT SPECIALIST 04/16/2024 9:06 AM NETWORK SUPPORT SPECIALIST Deborah Lipscomb MD CHEMISTRY Final [facility] Performing Organization Address [facility] Co de Phone Number [facility] [address] [place] [address], [place] * (ABNORMAL) CREATININE (04/16/2024 8:09 AM NETWORK SUPPORT SPECIALIST) Only the most recent of2 resultswithin the time period is included. eGFR 37(L) >90 mL/min/1.7 3m2 04/16/2024 9:45 AM NETWORK SUPPORT SPECIALIST [facility]ENTERIntercomMER[facility] TRAL [facility] Comment:As of 2021, eG FR is calculated by the CKD-EPI creatinine equation without race adjustment. eGFR can be influenced by muscle mass, exercise, and diet. The reported eGFR is an estimation only and is only applicable if the renal function is stable. CREATININE 1.91(H) 0.70 - 1.20 mg/dL 04/16/2024 9:45 AM NETWORK SUPPORT SPECIALIST [facility]ENTERThe [facility] Blood BLOOD SPECIMEN / Unknown Non-Lab Venipuncture / Unknown 04/16/2024 8:09 AM NETWORK SUPPORT SPECIALIST 04/16/2024 9:06 AM NETWORK SUPPORT SPECIALIST Deborah Lipscomb MD CHEMISTRY Final [facility] Performing Organization Address City/[facility] Co de Phone Number [facility] [address] [place] [address], [place] * SCAN-CARDIAC STRIP (04/16/2024 1:03 AM NETWORK SUPPORT SPECIALIST) us Scanner OTHER Final Result * SCAN-CARDIAC STRIP (04/15/2024 8:37 PM NETWORK SUPPORT SPECIALIST) us Scanner OTHER Final Result * EKG 12 LEAD (04/15/2024 12:31 PM NETWORK SUPPORT SPECIALIST) Only the most recent of6 resultswithin the [...] NOW QTc 448 ms BEYOND NOW P [place] 53 degrees BEYOND NOW R [place] -60 degrees BEYOND NOW T [place] 118 degrees BEYOND NOW 04/15/2024 12:3 1 PM NETWORK SUPPORT SPECIALIST 04/16/2024 1:25 AM NETWORK SUPPORT SPECIALIST us Jossie Prado PUTTY TINTER MAKER EKG ORD Final Result Performing Organization Address City/[facility]/ZIP Co de Phone Number BEY[facility] NOW [place], [place] * (ABNORMAL) GLUCOSE METER (04/15/2024 7:49 AM NETWORK SUPPORT SPECIALIST) Only the most recent of33 resultswithin the time period is included. GLUCOSE METER 134(H) 65 - 100 mg/dL 04/15/2024 7:54 AM NETWORK SUPPORT SPECIALIST [facility]SM[facility] Blood BLOOD SPECIMEN / Unknown 04/15/2024 7:49 AM NETWORK SUPPORT SPECIALIST 04/15/2024 7:54 AM NETWORK SUPPORT SPECIALIST us Deborah Lipscomb MD CHEMISTRY Final R esult [facility] [employer] LABORATORY-CENTRAL LABORATORY [address] [place] [address], [place] * SCAN-CARDIAC STRIP (04/15/2024 7:26 AM NETWORK SUPPORT SPECIALIST) us Scanner OTHER Final Result * SCAN-CARDIAC STRIP (04/15/2024 3:06 AM NETWORK SUPPORT SPECIALIST) us Scanner OTHER Final Result * SCAN-CARDIAC STRIP (04/14/2024 9:43 PM NETWORK SUPPORT SPECIALIST) us Scanner OTHER Final Result * SCAN-CARDIAC STRIP (04/14/2024 3:27 PM NETWORK SUPPORT SPECIALIST) us Scanner OTHER Final Result * ICD ANALYSIS DUAL WITHOUT REPROGRAM (04/14/2024 3:13 PM NETWORK SUPPORT SPECIALIST) Narrative Vasyl Kim MD - 04/14/2024 3:13 PM NETWORK SUPPORT SPECIALIST Marino Strickland RN 04/14/2024 3:17 PM ICD EVALUATION REPORT 04/14/2024 Summary: Normal pacemaker function. Lead trends stable. 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 No VT detections. AP 20.9%, PUTTY TINTER MAKER 0.2%. Battery estimating 11.2 years remaining. Indication for ICD: Primary Prevention of Sudden Cardiac Primary MD: Shana Lozano DO Primary Cytology Teacher: [facility] Implanting MD: Bert Quiros- [facility] DEVICE DATA Documentation Billing Clerk Medtronic: Model [place] XT DR [id number] Implant Date 04/09/2023 LEAD DATA Atrial Lead: Documentation Billing Clerk Medtronic: Model 5076-52 cm Implant Date 04/09/23 RV Lead: Documentation Billing Clerk Medtronic: Model 6935M-62 cm Implant Date 04/09/23 [...] none Location of evaluation: [facility] [id number] Reason for evaluation: MD request [...] permanent changes made. Follow up: follows with [facility] device clinic Marino Strickland RN Nurse Clinician II I Pacemaker/ICD [phone] us Vasyl Kim MD CARDIAC SERVICES ORD Final Result * SCAN-CARDIAC STRIP (04/14/2024 7:21 AM NETWORK SUPPORT SPECIALIST) us Scanner OTHER Final Result * URINALYSIS MICROSCOPIC (04/14/2024 6:29 AM NETWORK SUPPORT SPECIALIST) Only the most recent of2 resultswithin the time period is included. RBC 0-2 0-2, None Seen /HPF 04/14/2024 7:26 AM NETWORK SUPPORT SPECIALIST [facility] WBC 3-5 0-2, 3-5, None Seen /HPF 04/14/2024 7:26 AM NETWORK SUPPORT SPECIALIST [facility] BACTERIA None Seen None Seen, Rare, Few Bacteria/ HPF 04/14/2024 7:26 AM NETWORK SUPPORT SPECIALIST [facility] EPITHELIAL CELLS None Seen None Seen, Few Epi/HPF 04/14/2024 7:26 AM [facility] HYALINE CASTS 0-2 0-2, 3-5 /LPF 04/14/2024 7:26 AM [facility] Urine URINE SPECIMEN / Unknown Non-Blood / Unknown 04/14/2024 6:29 AM NETWORK SUPPORT SPECIALIST 04/14/2024 6:36 AM [facility] us Santy Crowley MD URINE Final Re sult [facility] [address] [place] [address], [place] * (ABNORMAL) UA W/ SEDIMENT EXAM REFLEXED PER CRITERIA (04/14/2024 6:29 AM NETWORK SUPPORT SPECIALIST) Only the most recent of2 resultswithin the time period is included. COLOR Yellow Yellow Color 04/14/2024 7:26 AM [facility] CLARITY Clear Clear Clarity 04/14/2024 7:26 AM [facility] SPECIFIC GRAVITY,URINE 1.015 1.010, 1.015, 1.020, 1.025 04/14/2024 7:26 AM [facility] PH,URINE 5.5 6.0, 7.0, 8.0, 5.5, 6.5, 7.5, 8.5 04/14/2024 7:26 AM [facility] UROBILINOGEN, QUALITATIVE Normal Normal EU/dl 04/14/2024 7:26 AM NETWORK SUPPORT SPECIALIST [facility] TRAL LABORATORY PROTEIN, URINE Negative Negative mg/dL 04/14/2024 7:26 AM NETWORK SUPPORT SPECIALIST [facility] TRAL LABORATORY GLUCOSE, URINE Negative Negative mg/dL 04/14/2024 7:26 AM NETWORK SUPPORT SPECIALIST [facility] TRAL LABORATORY KETONES,URINE Negative Negative mg/dL 04/14/2024 7:26 AM NETWORK SUPPORT SPECIALIST [facility] TRAL LABORATORY BILIRUBIN,URI NE Negative Negative 04/14/2024 7:26 AM NETWORK SUPPORT SPECIALIST [facility] TRAL LABORATORY OCCULT BLOOD,URINE Negative Negative 04/14/2024 7:26 AM NETWORK SUPPORT SPECIALIST [facility] TRAL LABORATORY NITRITE Negative Negative 04/14/2024 7:26 AM NETWORK SUPPORT SPECIALIST [facility] LEUKOCYTE ESTERASE Trace(A) Negative 04/14/2024 7:26 AM [facility] TRAL LABORATORY Urine URINE SPECIMEN / Unknown Non-Blood / Unknown 04/14/2024 6:29 AM NETWORK SUPPORT SPECIALIST 04/14/2024 6:36 AM NETWORK SUPPORT SPECIALIST us Santy Crowley MD URINE Final Re sult [facility] [address] [place] [address], * SCAN-CARDIAC STRIP (04/13/2024 8:03 PM NETWORK SUPPORT SPECIALIST) us Scanner OTHER Final Result * PICC LINE (04/13/2024 7:28 PM NETWORK SUPPORT SPECIALIST) Narrative Eleonora Fox, RN - 04/13/2024 7:28 PM NETWORK SUPPORT SPECIALIST Eleonora Fox RN 04/13/2024 7:33 PM PICC Line Insertion Note 04/13/2024 7:28 PM Procedure education reviewed: Placement procedure, discussed with: Patient face to face. Patient face to face confirms understanding of procedure. Soft Metals Engraver Hand used: No Reason for insertion: MD order [...] (Active) 04/13/241899 Right;Basilic;Upper Arm Vessel Diameter: 0.46 Bjqvkbyt-ka-Bypq Ratio (%): Visible Catheter Length (cm): 0 [...] Dressing change due date 04/20/2024 04/13/241899 Line Documentation Billing Clerk Name: Bard Line Type: Valved Power PICC Lot Number: [id number] Access Assistance:Modified Seldinger Technique (Micro-Introducer) WITH Dermatotomy [...] * Insert PICC line (04/13/2024 7:20 PM NETWORK SUPPORT SPECIALIST) Narrative Eleonora Fox, RN - 04/13/2024 7:20 PM NETWORK SUPPORT SPECIALIST Eleonora Fox RN 04/13/2024 7:22 PM PICC [...] ult * SCAN-CARDIAC STRIP (04/13/2024 3:12 PM NETWORK SUPPORT SPECIALIST) us Scanner OTHER Final Result * ICD ANALYSIS DUAL WITHOUT REPROGRAM (04/13/2024 1:57 PM NETWORK SUPPORT SPECIALIST) Narrative Vasyl Kim MD - 04/13/2024 1:57 PM NETWORK SUPPORT SPECIALIST Mirela Bates, RN 04/13/2024 2:23 PM ICD EVALUATION REPORT 04/13/2024 Summary: Normal pacemaker function. Lead trends stable. 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 No VT detections. AP 2.9%, PUTTY TINTER MAKER 51.9%. Battery estimating 11.3 years remaining. Indication for ICD: Primary Prevention of Sudden Cardiac Primary MD: Shana Lozano DO Primary Cytology Teacher: [facility] Implanting MD: Bert Quiros- [facility] DEVICE DATA Documentation Billing Clerk Medtronic: Model [place] XT DR [id number] Implant Date 04/09/2023 LEAD DATA Atrial Lead: Documentation Billing Clerk Medtronic: Model 5076-52 cm Implant Date 04/09/23 RV Lead: Documentation Billing Clerk Medtronic: Model 6935M-62 cm Implant Date 04/09/23 [...] none Location of evaluation: [facility] [id number] Reason for evaluation: MD request- [...] permanent changes made. Follow up: follows with [facility] device clinic Mirela Bates RN Nurse Clinician II [facility] Pacemaker/ICD Clinic [phone] Vasyl Kim MD CARDIAC SERVICES ORD Final Result * SCAN-CARDIAC STRIP (04/13/2024 7:35 AM NETWORK SUPPORT SPECIALIST) Scanner OTHER Final Result * (ABNORMAL) COMPREHENSIVE BLOOD GAS MIXED VENOUS (04/12/2024 4:48 PM NETWORK SUPPORT SPECIALIST) O2 SATURATION, MEASURED, MIXED VENOUS 41(L) 70 - 75 % 04/12/2024 4:48 PM NETWORK SUPPORT SPECIALIST [facility] [employer] LABORATORY-CE NTRAL LABORATORY PATIENT TEMPERATURE 37.0 Degrees C 04/12/2024 4:48 PM NETWORK SUPPORT SPECIALIST [facility] LABORATORY- NTRFL LABORATORY COLLECTION SITE PULMONARY ARTERY 04/12/2024 4:48 PM NETWORK SUPPORT SPECIALIST [facility] LABORATORY- NTRFL LABORATORY HEMOGLOBIN,BLOO D GAS 11.4(L) 13.5 - 17.5 g/dL 04/12/2024 4:48 PM NETWORK SUPPORT SPECIALIST [facility] LABORATORY- NTRFL LABORATORY Blood BLOOD SPECIMEN / Unknown 04/12/2024 4:48 PM NETWORK SUPPORT SPECIALIST 04/12/2024 4:48 PM NETWORK SUPPORT SPECIALIST [facility] CHEMISTRY Final Re sult [facility] LABORATORY-CENTRAL LABORATORY [address] [place] [address], * CVL OTHER PROCEDURE (04/12/2024 4:09 PM NETWORK SUPPORT SPECIALIST) Anatomical Region Laterality Modality Other 04/12/2024 4:09 PM NETWORK SUPPORT SPECIALIST us Provider Referring CV IMAGING Final Result * SCAN-CARDIAC STRIP (04/12/2024 3:27 PM NETWORK SUPPORT SPECIALIST) us Scanner OTHER Final Result * US RENAL AND BLADDER COMPLETE (04/12/2024 2:51 PM NETWORK SUPPORT SPECIALIST) Anatomical Region Laterality Modality Abdomen, AORTA, KIDNEYS Ultrasou nd 04/12/2024 3:46 PM NETWORK SUPPORT SPECIALIST Impressions 04/12/2024 3:46 PM NETWORK SUPPORT SPECIALIST Simple appearing right lower pole renal cyst. Otherwise, no concerning findings on a renal ultrasound. Dictated by Danny Rubio MD @ 04/12/2024 3:46:12 PM (Electronically Signed) Narrative 04/12/2024 3:46 PM NETWORK SUPPORT SPECIALIST For Patients: As a result of the [...] COLOR W LTD DOPPLER (04/12/2024 10:52 AM NETWORK SUPPORT SPECIALIST) MITRAL VALVE MR ERO 13 mm2 EJECTION FRACTION 10 - 20% Anatomical Region Laterality Modality Ultrasound 04/12/2024 10:2 2 AM NETWORK SUPPORT SPECIALIST Narrative 04/12/2024 1:01 PM NETWORK SUPPORT SPECIALIST TRANSESOPHAGEAL ECHOCARDIOGRAM CASEY SOLER : 1950 73 years Study Date: 04/12/2024 10:22:59 AM Gender: M BP: 96/76 mmHg Height: 172.00 cm BSA: 1.91 m Weight: 78.00 kg Tech: LETICIA/ION Referring MD: FARA BLACKWELL Site: [facility] [place] Location: [facility] Patient Location: Inpatient. Procedure: NOEL, Limited [...] . This study was interpreted by an [facility] accredited facility. Final Procedure Note Troy Munoz MD - 04/12/2024 TRANSESOPHAGEAL ECHOCARDIOGRAM CASEY SOLER : 1950 73 years Study Date: 04/12/2024 10:22:59 AM Gender: M BP: 96/76 mmHg Height: 172.00 cm BSA: 1.91 m Weight: 78.00 kg Tech: LETICIA/IJ Referring MD: FARA BLACKWELL [facility] [place] [facility] Patient Location: Inpatient. Procedure: NOEL, [...] . This study was interpreted by an [facility] accredited facility. Final us Fara Blackwell PUTTY TINTER MAKER ECHO ORD Final Resu lt * EP OTHER PROCEDURE (04/12/2024 10:48 AM NETWORK SUPPORT SPECIALIST) Anatomical Region Laterality Modality Other Narrative 04/12/2024 10:48 AM NETWORK SUPPORT SPECIALIST Troy Munoz MD 04/12/2024 10:48 AM [facility] Procedure Note Date of Service: 04/12/2024 [...] sult * SCAN-CARDIAC STRIP (04/12/2024 3:46 AM NETWORK SUPPORT SPECIALIST) us Scanner OTHER Final Result * SCAN-OPERATIVE/PROCEDURE REPORT (04/12/2024 12:00 AM NETWORK SUPPORT SPECIALIST) Narrative 04/12/2024 12:00 AM NETWORK SUPPORT SPECIALIST Ordered by an unspecified provider. us Other Clinical Staff OTHER Final Resul t * SCAN-CARDIAC STRIP (04/11/2024 8:21 PM NETWORK SUPPORT SPECIALIST) us Scanner OTHER Final Result * SCAN-CARDIAC STRIP (04/11/2024 4:18 PM NETWORK SUPPORT SPECIALIST) us Scanner OTHER Final Result * SCAN-CARDIAC STRIP (04/11/2024 7:48 AM NETWORK SUPPORT SPECIALIST) us Scanner OTHER Final Result * SCAN-CARDIAC STRIP (04/10/2024 4:04 PM NETWORK SUPPORT SPECIALIST) us Scanner OTHER Final Result * SCAN-CARDIAC STRIP (04/10/2024 10:29 AM NETWORK SUPPORT SPECIALIST) us Scanner OTHER Final Result * SCAN-CARDIAC STRIP (04/10/2024 5:01 AM NETWORK SUPPORT SPECIALIST) us Scanner OTHER Final Result * SCAN-CARDIAC STRIP (04/09/2024 7:40 PM NETWORK SUPPORT SPECIALIST) us Scanner OTHER Final Result * SCAN-CARDIAC STRIP (04/09/2024 3:40 PM NETWORK SUPPORT SPECIALIST) us Scanner OTHER Final Result * PATH TISSUE EXAM (04/08/2024 12:39 PM NETWORK SUPPORT SPECIALIST) Case Report Pathology Report Case: [id number] Authorizing Provider: Chepe Francis MD Collected: 04/08/2024 1239 Ordering Location: [facility] Received: 04/08/2024 1244 Hospital Pathologist: Lukasz Pinto MD Specimen: Gastric Biopsy 04/09/2024 11:12 AM [facility] [employer]-C ENTRAL LABORATORY Final Diagnosis A) STOMACH, BIOPSY: 1. Normal gastric antral and body mucosae with endoscopic erosion (see comment) 2. Negative for chronic gastritis or Helicobacter 04/09/2024 11:12 AM [facility] Scan LABORATORY-C ENTRAL LABORATORY at 1112 NETWORK SUPPORT SPECIALIST Comment A) We note the endoscopic presence of an erosion. The sampled mucosa is histologically normal. In this context patchy reactive gastropathy due to chemical type injury (NSAIDs, alcohol, bile reflux, etc.) seems likely. Please correlate clinically. 04/09/2024 11:12 AM [facility] [employer]-C ENTRAL LABORATORY Clinical Information 73-year-old male with iron deficiency anemia and melena. He is on chronic aspirin, Plavix, and ibuprofen. EGD identified a single erosion in the prepyloric region of the stomach. 04/09/2024 11:12 AM [facility] Scan LABORATORY-C ENTRAL LABORATORY Gross Description A) Received in formalin is a 6 x 3 x 1 mm aggregate of alvarez mucosa. Submitted in one cassette. It is labeled with the patient's name and designated gastric biopsy. Joana Sean 04/08/2024 1:06 PM 04/09/2024 11:12 AM [facility] [employer]-C ENTRAL LABORATORY Microscopic Description The final diagnosis is based on microscopic examination of appropriate sections of all specimens. 04/09/2024 11:12 AM [facility] Scan LABORATORY-C ENTRAL LABORATORY Additional Information Interpreted at [employer], Central Laboratory - [address], [place] [address] 04/09/2024 11:12 AM [facility] [employer]-C ENTRAL LABORATORY Biopsy GASTRIC BIOPSY SPECIMEN / Unknown 04/08/2024 12:39 PM NETWORK SUPPORT SPECIALIST 04/08/2024 12:44 PM NETWORK SUPPORT SPECIALIST us Chepe Francis MD PATHOLOGY/CYTOLOGY Christy griffith Result [facility] LABORATORY-CENTRAL LABORATORY [address] [place] [address], * ENDOSCOPY (04/08/2024 9:49 AM NETWORK SUPPORT SPECIALIST) 04/08/2024 9:49 AM NETWORK SUPPORT SPECIALIST Narrative Transcriptions Chepe Francis MD - 04/08/2024 1:46 PM CST [facility] Patient Name: Casey Soler Procedure Date: 04/08/2024 Gender: Male Date of : 1950 Admit Type: Inpatient Procedure: Upper GI endoscopy Proceduralist: Chepe Francis MD - [facility] Indications/Pre-Op Diagnosis: Iron deficiency anemia, Melena; chronicaspirin 81 mg and plavix; chronic ibuprofen usedaily; recently started on anticoagulation foratrial fibrillation Medications: Monitored Anesthesia Care Procedure Description: Risk of bleeding, infection, perforation, need for surgery and alternatives discussed. The endoscope [id number] was introduced through the mouth, and advanced [...] * EXTRA TUBE LAVENDER (04/08/2024 6:45 AM NETWORK SUPPORT SPECIALIST) Only the most recent of2 resultswithin the time period is included. Blood BLOOD SPECIMEN / Unknown Non-Lab Venipuncture / Unknown 04/08/2024 6:45 AM NETWORK SUPPORT SPECIALIST 04/08/2024 6:57 AM NETWORK SUPPORT SPECIALIST Joseph Arora MD LABORATORY Final Re sult [facility] LABORATORY-CENTRAL LABORATORY [address] [place] [address], [place] * EXTRA TUBE BLUE (04/08/2024 6:45 AM NETWORK SUPPORT SPECIALIST) Only the most recent of3 resultswithin the time period is included. Blood BLOOD SPECIMEN / Unknown Non-Lab Venipuncture / Unknown 04/08/2024 6:45 AM NETWORK SUPPORT SPECIALIST 04/08/2024 6:57 AM NETWORK SUPPORT SPECIALIST Joseph Arora MD LABORATORY Final Re sult Performing Organization Address [facility]/ZIP Co de Phone Number [facility]ORAT[facility] [address] [place] [address], * SCAN-CARDIAC STRIP (04/07/2024 11:52 PM NETWORK SUPPORT SPECIALIST) Scanner OTHER Final Result * (ABNORMAL) DIGOXIN (04/07/2024 1:50 PM NETWORK SUPPORT SPECIALIST) Pathologist [facility] DIGOXIN 2.5(H) 0.8 - 2.0 ng/mL 04/07/2024 2:32 PM NETWORK SUPPORT SPECIALIST [facility] TRAL LABORATORY DATE OF LAST DOSE Not Given 04/07/2024 2:32 PM NETWORK SUPPORT SPECIALIST [facility] TRAL LABORATORY TIME OF LAST DOSE Not Given 04/07/2024 2:32 PM NETWORK SUPPORT SPECIALIST [facility] LABORATORY Blood BLOOD SPECIMEN / Unknown Venipuncture / Unknown 04/07/2024 1:50 PM NETWORK SUPPORT SPECIALIST 04/07/2024 1:55 PM NETWORK SUPPORT SPECIALIST Guille Choi NP CHEMISTRY Final Result Performing Organization Address [facility] Co de Phone Number [facility] LABORATORY [address] [place] [address], * COVID/FLU/RSV PANEL (04/07/2024 9:48 AM NETWORK SUPPORT SPECIALIST) Pathologist [facility] COVID 19 [facility] MOLECULAR Negative Negative 04/07/2024 12:16 PM NETWORK SUPPORT SPECIALIST [facility] TRAL LABORATORY Comment:All PCR tests are krishnan bject to false negative result due to variability in viral load and collection technique. A negative result does not rule out a SARS-CoV-2 infection. Clinical correlation required. INFLUENZA A PCR Negative 12:16 PM NETWORK SUPPORT SPECIALIST [facility] TRAL LABORATORY INFLUENZA B PCR Negative 12:16 PM NETWORK SUPPORT SPECIALIST [facility] TRAL LABORATORY Respiratory Syncytial Virus Negative 04/07/2024 12:16 PM NETWORK SUPPORT SPECIALIST [facility] TRAL LABORATORY Swab NASOPHARYNGEAL SWAB / Unknown Non-Blood / Unknown 04/07/2024 9:48 AM NETWORK SUPPORT SPECIALIST 04/07/2024 10:17 AM NETWORK SUPPORT SPECIALIST us Joseph Arora MD MICROBIOLOGY Final Re sult [facility] LABORATORY-CENTRAL LABORATORY [address] [place], [place] [id number], * ICD ANALYSIS DUAL WITHOUT REPROGRAM (04/07/2024 9:05 AM NETWORK SUPPORT SPECIALIST) Narrative Chato Benz MD - 04/07/2024 9:05 AM NETWORK SUPPORT SPECIALIST Mirela Bates RN 04/07/2024 9:59 AM ICD EVALUATION REPORT April 07, 2024 Summary: Normal pacemaker function. Lead trends stable. One AT/AF detection- beginning on 04/03/24 and has continuous since this time. Poor ventricular rate control. One VT detection on 01/29/24- 3 seconds rate of 233 bpm. AP 35.8%, PUTTY TINTER MAKER 2.2%. Battery estimating 11.3 years remaining. Indication for ICD: Primary Prevention of Sudden Cardiac Primary MD: Shana Lozano DO Primary Cytology Teacher: [facility] Implanting MD: Bert Quiros- [facility] DEVICE DATA Documentation Billing Clerk [employer]: Model [place] XT DR [id number] Implant Date 04/09/2023 LEAD DATA Atrial Lead: Documentation Billing Clerk [employer]: Model 5076-52 cm Implant Date 04/09/23 RV Lead: Documentation Billing Clerk [employer]: Model 6935M-62 cm Implant Date 04/09/23 [...] none Location of evaluation: [facility] [id number] Reason for evaluation: MD request [...] permanent changes made. Follow up: follows with [facility] device clinic Mirela Bates RN Nurse Clinician II [facility] Pacemaker/ICD Clinic [phone] us Chato Benz MD CARDIAC SERVICES ORD F inal Result * ECHO TTE LIMITED W CONTRAST W COLOR W DOPPLER (04/07/2024 8:53 AM NETWORK SUPPORT SPECIALIST) AORTIC VALVE MEAN PG 2 mmHg EJECTION FRACTION 20 % LVEDD 6.6 cm Anatomical Region Laterality Modality Ultrasound 04/07/2024 8:08 AM NETWORK SUPPORT SPECIALIST Narrative 04/07/2024 9:36 AM NETWORK SUPPORT SPECIALIST ECHOCARDIOGRAM CASEY SOLER : 1950 73 years Study Date: 04/07/2024 8:08:24 AM Gender: M BP: 90/87 mmHg Height: 172.00 cm BSA: 1.94 m Weight: 81.00 kg Tech: LETICIA Referring MD: GUILLE CHOI Site: [facility] [place] Location: [facility] IP Patient Location: [...] documentation: 2 ml diluted Definity, lot #[id number], [facility]# [id number] was administered peripherally to enhance visualization of all left ventricular segments. . This study was interpreted by an [facility] accredited facility. Final Procedure Note Jayashree Velarde MD - 04/07/2024 ECHOCARDIOGRAM CASEY SOLER : 1950 73 years Study Date: 04/07/2024 8:08:24 AM Gender: M BP: 90/87 mmHg Height: 172.00 cm BSA: 1.94 m Weight: 81.00 kg Tech: LETICIA Casas MD: GUILLE CHOI Site: [facility] [place] Location: [facility] Patient Location: Inpatient. Procedure: Limited Echo [...] documentation: 2 ml diluted Definity, lot #[id number], [facility]#[id number] was administered peripherally to enhance visualization of allleft ventricular segments. . This study was interpreted by an [facility] accredited facility. Final us Guille Choi NP ECHO ORD Final Result * (ABNORMAL) LACTATE VENOUS (04/07/2024 6:20 AM NETWORK SUPPORT SPECIALIST) Only the most recent of3 resultswithin the time period is included. LACTATE,VENOUS 2.5(H) 0.5 - 2.0 mmol/L 04/07/2024 7:32 AM NETWORK SUPPORT SPECIALIST [facility] Blood BLOOD SPECIMEN / Unknown Venipuncture / Unknown 04/07/2024 6:20 AM NETWORK SUPPORT SPECIALIST 04/07/2024 6:59 AM NETWORK SUPPORT SPECIALIST us Guille Choi NP CHEMISTRY Final Result [facility] [address] [place] [address], * SCAN-CARDIAC STRIP (04/07/2024 5:29 AM NETWORK SUPPORT SPECIALIST) us Scanner OTHER Final Result * SCAN-CARDIAC STRIP (04/07/2024 3:14 AM NETWORK SUPPORT SPECIALIST) us Scanner OTHER Final Result * TYPE & SCREEN (04/07/2024 12:39 AM NETWORK SUPPORT SPECIALIST) Pathologist [facility] ABORH A Rh Positive 04/07/2024 2:10 AM NETWORK SUPPORT SPECIALIST [facility]ENTERPhoneGuardCENTRAL LAB BLOOD BANK ANTIBODY SCREEN Negative Negative 04/07/2024 2:10 AM NETWORK SUPPORT SPECIALIST [facility] [employer] [facility] SPECIMEN EXPIRATION DATE/TIME 04/10/24 23:59 04/07/2024 2:10 AM NETWORK SUPPORT SPECIALIST [facility] [employer] [facility] B[facility]OD B[facility] Blood BLOOD SPECIMEN / Unknown Butterfly / Unknown 04/07/2024 12:39 AM NETWORK SUPPORT SPECIALIST 04/07/2024 1:05 AM NETWORK SUPPORT SPECIALIST Guille Choi [employer] BLOOD BANK Final Result Performing Organization Address [facility]/ZIP Co de Phone Number [facility] B[facility]OD BANK [address] [place] [address], [place] [phone] * (ABNORMAL) Iron plus iron binding cap AM (04/07/2024 12:39 AM NETWORK SUPPORT SPECIALIST) IRON 57(L) 61 - 157 ug/dL 04/07/2024 2:03 AM NETWORK SUPPORT SPECIALIST [facility] UIBC (UNSATURATED) 229 112 - 347 ug/dL 04/07/2024 2:03 AM NETWORK SUPPORT SPECIALIST [facility] IRON BINDING CAPACITY 286 250 - 400 ug/dL 04/07/2024 2:03 AM NETWORK SUPPORT SPECIALIST [facility] IRON,% SATURATION 20 14 - 50 % 04/07/2024 2:03 AM NETWORK SUPPORT SPECIALIST [facility] Blood BLOOD SPECIMEN / Unknown Butterfly / Unknown 04/07/2024 12:39 AM NETWORK SUPPORT SPECIALIST 04/07/2024 1:05 AM NETWORK SUPPORT SPECIALIST Parmjit Berrios MD CHEMISTRY Final Resul t Performing Organization Address [facility] Co de Phone Number [facility] [address] [place] [address], * (ABNORMAL) Reticulocyte count AM (04/07/2024 12:39 AM NETWORK SUPPORT SPECIALIST) RETIC% 2.3(H) 0.5 - 1.5 % 04/07/2024 1:35 AM NETWORK SUPPORT SPECIALIST [facility] TRA LABORATORY RETIC (ABSOLUTE) 0.09(H) 0.03 - 0.08 mil/cu mm 04/07/2024 1:35 AM NETWORK SUPPORT SPECIALIST [facility] Blood BLOOD SPECIMEN / Unknown Butterfly / Unknown 04/07/2024 12:39 AM NETWORK SUPPORT SPECIALIST 04/07/2024 1:05 AM NETWORK SUPPORT SPECIALIST us Parmjit Berrios MD HEMATOLOGY Final Resul t Performing Organization Address City/[facility]/ZIP Co de Phone Number [facility] [address] [place] [address], [place] * Ferritin AM (04/07/2024 12:39 AM NETWORK SUPPORT SPECIALIST) FERRITIN 275.0 30.0 - 400.0 ng/mL 04/07/2024 1:58 AM NETWORK SUPPORT SPECIALIST [facility] Blood BLOOD SPECIMEN / Unknown Butterfly / Unknown 04/07/2024 12:39 AM NETWORK SUPPORT SPECIALIST 04/07/2024 1:05 AM NETWORK SUPPORT SPECIALIST us Parmjit Berrios MD CHEMISTRY Final Resul t Performing Organization Address [facility] Co de Phone Number [facility] [address] [place] [address], [place] * (ABNORMAL) COMP METABOLIC PANEL (04/07/2024 12:39 AM NETWORK SUPPORT SPECIALIST) SODIUM 131(L) 136 - 145 mmol/L 04/07/2024 1:30 AM [facility] TRAL LABORATORY POTASSIUM 3.8 3.5 - 5.1 mmol/L 04/07/2024 1:30 AM [facility]AL LABOR[facility] CHLORIDE 86(L) 98 - 107 mmol/L 04/07/2024 1:30 AM [facility] TR[facility] LAB[facility] CO2,TOTAL 23 22 - 29 mmol/L 04/07/2024 1:30 AM [facility] LAB[facility] ANION GAP 22(H) 5 - 18 04/07/2024 1:30 AM [facility] GLUCOSE 110(H) 70 - 99 mg/dL 04/07/2024 1:30 AM [facility] CALCIUM 9.1 8.8 - 10.4 mg/dL 04/07/2024 1:30 AM [facility] Comment: Reference ranges for this test were updated on 01/06/2024 to reflect our healthy population more accurately. Reference range changes are not retroactively applied to results, but previous results using the same methodology can be interpreted in the context of the new reference range. BUN 94(H) 8 - 23 mg/dL 04/07/2024 1:30 AM [facility] CREATININE 2.41(H) 0.70 - 1.20 mg/dL 04/07/2024 1:30 AM [facility] BUN/CREAT RATIO 39(H) 10 - 20 1:30 AM [facility] eGFR 28(L) >90 mL/min/1. 73m2 04/07/2024 1:30 AM [facility] Comment:As of 2021, eG FR is calculated by the CKD-EPI creatinine equation without race adjustment. eGFR can be influenced by muscle mass, exercise, and diet. The reported eGFR is an estimation only and is only applicable if the renal function is stable. ALBUMIN 3.8(L) 4.0 - 4.9 g/dL 04/07/2024 1:30 AM [facility] PROTEIN,TOTAL 6.4 6.0 - 8.0 g/dL 04/07/2024 1:30 AM [facility] BILIRUBIN,TOTAL 0.7 0.0 - 1.2 mg/dL 04/07/2024 1:30 AM [facility] ALK PHOSPHATASE 96 40 - 129 IU/L 04/07/2024 1:30 AM [facility] ALT (SGPT) 9(L) 10 - 50 IU/L 04/07/2024 1:30 AM [facility] AST (SGOT) 22 10 - 50 IU/L 04/07/2024 1:30 AM [facility] Blood BLOOD SPECIMEN / Unknown Butterfly / Unknown 04/07/2024 12:39 AM NETWORK SUPPORT SPECIALIST 04/07/2024 1:05 AM NETWORK SUPPORT SPECIALIST us Guille Choi NP CHEMISTRY Final Result [facility] [address] [address], [place] * XR CHEST 1 VIEW PORTABLE (04/06/2024 8:19 PM NETWORK SUPPORT SPECIALIST) Anatomical Region Laterality Modality HEART, THORAX, CHEST Computed Ra diography 04/06/2024 8:19 PM NETWORK SUPPORT SPECIALIST Impressions 04/06/2024 8:48 PM NETWORK SUPPORT SPECIALIST Stable size of cardiomediastinal silhouette with pacemaker/AICD leads overlying the right atrium and right ventricle. Likely pulmonary vascular congestion with subtle interstitial opacities in the lung bases, right greater than left, differential includes mild edema and atypical infectious/inflammatory process. No definite pleural effusion or pneumothorax. No acute bony abnormality. Narrative 04/06/2024 8:48 PM NETWORK SUPPORT SPECIALIST For Patients: As a result of the Cures Act, medical imaging exams and procedure reports are released immediately into your electronic medical record. You may view this report before your referring provider. If you have questions, please contact your health care provider. EXAM: XR CHEST 1 VIEW PORTABLE LOCATION: Located Within [facility] DATE: 04/06/2024 INDICATION: Shortness of [...] EXAM: XR CHEST 1 VIEW PORTABLE LOCATION: Located Within [facility] DATE: 04/06/2024 INDICATION: Shortness of [...] * (ABNORMAL) TROPONIN I (04/06/2024 7:53 PM NETWORK SUPPORT SPECIALIST) Only the most recent of2 resultswithin the time period is included. TROPONIN I KELLI 0.043(HH) <0.030 ng/mL 04/06/2024 8:31 PM NETWORK SUPPORT SPECIALIST [facility] Blood BLOOD SPECIMEN / Unknown Venipuncture / Unknown 04/06/2024 7:53 PM NETWORK SUPPORT SPECIALIST 04/06/2024 7:59 PM NETWORK SUPPORT SPECIALIST us John Ramirez MD CHEMISTRY Final Result [facility] [address] [place] [address], * BEDSIDE US STUDY ARCHIVE (04/06/2024 3:07 PM NETWORK SUPPORT SPECIALIST) Narrative Charly Monroe MD - 04/06/2024 3:07 PM NETWORK SUPPORT SPECIALIST Jun Mar MD 04/06/2024 3:08 PM BEDSIDE [...] CBC WITH AUTO DIFFERENTIAL (04/06/2024 2:45 PM NETWORK SUPPORT SPECIALIST) Pathologist [facility] WHITE BLOOD COUNT 12.6 4.5 - 13.5 thou/cu mm 04/06/2024 3:10 PM NETWORK SUPPORT SPECIALIST [facility] RED BLOOD COUNT 4.39(L) 4.70 - 6.10 mil/cu mm 04/06/2024 3:10 PM [facility] HEMOGLOBIN 13.0(L) 13.5 - 17.5 g/dL 04/06/2024 3:10 PM [facility] HEMATOCRIT 39.5(L) 42.0 - 52.0 % 04/06/2024 3:10 PM [facility] MCV 90 80 - 94 fL 04/06/2024 3:10 PM [facility] MCH 29.6 27.0 - 31.0 pg 04/06/2024 3:10 PM [facility] MCHC 32.9(L) 33.0 - 36.0 g/dL 04/06/2024 3:10 PM [facility] RDW 17.4(H) 11.6 - 14.8 % 04/06/2024 3:10 PM [facility] PLATELET COUNT 341 130 - 400 thou/cu mm 04/06/2024 3:10 PM [facility] MPV 10.6(H) 7.4 - 10.4 fL 04/06/2024 3:10 PM [facility] NRBC 0.0 0.0 - 0.9 % 04/06/2024 3:10 PM [facility] % NEUT 85.1(H) 37.0 - 80.0 % 04/06/2024 3:10 PM [facility] % LYMPH 5.6(L) 10.0 - 50.0 % 04/06/2024 3:10 PM [facility] % MONO 6.8 0.0 - 12.0 % 04/06/2024 3:10 PM [facility] % EOS 0.6 0.0 - 7.0 % 04/06/2024 3:10 PM [facility] % BASO 0.4 0.0 - 2.5 % 04/06/2024 3:10 PM [facility] % IMMATURE GRAN (METAS,MYELOS,OK OS) 1.5 % 04/06/2024 3:10 PM [facility] ABSOLUTE NEUTROPHILS 10.7(H) 2.0 - 6.9 thou/cu mm 04/06/2024 3:10 PM [facility] ABSOLUTE LYMPHOCYTES 0.7 0.6 - 3.4 thou/cu mm 04/06/2024 3:10 PM [facility] ABSOLUTE MONOCYTES 0.9 0.0 - 1.0 thou/cu mm 04/06/2024 3:10 PM NETWORK SUPPORT SPECIALIST [facility] ABSOLUTE EOSINOPHILS 0.1 <=0.7 thou/cu mm 04/06/2024 3:10 PM NETWORK SUPPORT SPECIALIST [facility] ABSOLUTE BASOPHILS 0.1 <0.2 thou/cu mm 04/06/2024 3:10 PM NETWORK SUPPORT SPECIALIST [facility] ABSOLUTE IMMATURE GRANULOCYTES(MET ,MYELOS,PROS) 0.2 <0.3 thou/cu mm 04/06/2024 3:10 PM NETWORK SUPPORT SPECIALIST [facility] Blood BLOOD SPECIMEN / Unknown IV Start / Unknown 04/06/2024 2:45 PM NETWORK SUPPORT SPECIALIST 04/06/2024 3:00 PM NETWORK SUPPORT SPECIALIST us Jun Mar MD HEMATOLOGY Final Result Performing Organization Address City/[facility]/ZIP Co de Phone Number [facility] [address] [place] [address], [place] [phone] * EXTRA TUBE GOLD/SST (04/06/2024 2:45 PM NETWORK SUPPORT SPECIALIST) Blood BLOOD SPECIMEN / Unknown Extra Tube / Unknown 04/06/2024 2:45 PM NETWORK SUPPORT SPECIALIST 04/06/2024 4:05 PM NETWORK SUPPORT SPECIALIST us Charly Monroe MD LABORATORY Final Res ult Performing Organization Address [facility]/ZIP Co de Phone Number [facility] [address] [place] [address], [place] [phone] * TSH WITH REFLEX (04/06/2024 2:45 PM NETWORK SUPPORT SPECIALIST) TSH 3.73 0.35 - 4.94 uIU/mL 04/06/2024 3:43 PM NETWORK SUPPORT SPECIALIST [facility] Blood BLOOD SPECIMEN / Unknown IV Start / Unknown 04/06/2024 2:45 PM NETWORK SUPPORT SPECIALIST 04/06/2024 3:00 PM NETWORK SUPPORT SPECIALIST us Jun Mra MD CHEMISTRY Final Result Performing Organization Address City/[facility]/ZIP Co de Phone Number [facility] [address] [place] [address], [place] [phone] * (ABNORMAL) BRAIN NATRIURETIC PEPTIDE (04/06/2024 2:45 PM NETWORK SUPPORT SPECIALIST) BRAIN JEANCARLOS PEPTIDE 993(H) <100 pg/mL 04/06/2024 3:30 PM NETWORK SUPPORT SPECIALIST [facility] Blood BLOOD SPECIMEN / Unknown IV Start / Unknown 04/06/2024 2:45 PM NETWORK SUPPORT SPECIALIST 04/06/2024 3:05 PM NETWORK SUPPORT SPECIALIST Charly Monroe MD CHEMISTRY Final Res ult [facility] [address] [place] [address], * SLIDE REVIEW (04/06/2024 2:45 PM NETWORK SUPPORT SPECIALIST) POIKILOCYTOSIS 1+ 04/06/2024 3:35 PM NETWORK SUPPORT SPECIALIST [facility] POLYCHROMASIA 1+ 04/06/2024 3:35 PM NETWORK SUPPORT SPECIALIST [facility] MORPHOLOGY COMMENT Ovalocytes Present 04/06/2024 3:35 PM NETWORK SUPPORT SPECIALIST [facility] MORPHOLOGY COMMENT Stomatocytes Present 04/06/2024 3:35 PM NETWORK SUPPORT SPECIALIST [facility] PLT COMMENT Adequate 04/06/2024 3:35 PM NETWORK SUPPORT SPECIALIST [facility] Blood BLOOD SPECIMEN / Unknown IV Start / Unknown 04/06/2024 2:45 PM NETWORK SUPPORT SPECIALIST 04/06/2024 3:00 PM NETWORK SUPPORT SPECIALIST Jun Mar MD LABORATORY Final Result [facility] [address] [place] [address], * (ABNORMAL) Heparin Level ( aka XA) (04/06/2024 2:45 PM NETWORK SUPPORT SPECIALIST) HEPARIN LEVEL <0.04(LL) 0.32 - 0.63 U/mL 04/06/2024 7:11 [address] NETWORK SUPPORT SPECIALIST [facility] Blood BLOOD SPECIMEN / Unknown IV Start / Unknown 04/06/2024 2:45 PM NETWORK SUPPORT SPECIALIST 04/06/2024 6:09 PM NETWORK SUPPORT SPECIALIST Jun Mar MD HEMATOLOGY Final Result [facility] [address] [place] [address], * APTT (04/06/2024 2:45 PM NETWORK SUPPORT SPECIALIST) APTT 28 25 - 37 sec 04/06/2024 6:20 PM NETWORK SUPPORT SPECIALIST [facility] Blood BLOOD SPECIMEN / Unknown IV Start / Unknown 04/06/2024 2:45 PM NETWORK SUPPORT SPECIALIST 04/06/2024 6:09 PM NETWORK SUPPORT SPECIALIST Narrative [facility] - 04/06/2024 6:20 PM NETWORK SUPPORT SPECIALIST Therapeutic Range 64-83 seconds. Result [facility] us Jun Mar MD HEMATOLOGY Final Result [facility] [address] [place] [address], * SCAN-CARDIAC STRIP (04/06/2024 12:00 AM NETWORK SUPPORT SPECIALIST) Narrative 04/06/2024 12:00 AM NETWORK SUPPORT SPECIALIST Ordered by an unspecified provider. Other Clinical Staff OTHER Final Resul t * SCAN-CARDIAC STRIP (04/06/2024 12:00 AM NETWORK SUPPORT SPECIALIST) Narrative 04/06/2024 12:00 AM NETWORK SUPPORT SPECIALIST Ordered by an unspecified provider. Other Clinical Staff OTHER Final Resul t * SCAN-CARDIAC STRIP (03/22/2024 12:00 AM NETWORK SUPPORT SPECIALIST) Narrative 03/22/2024 12:00 AM NETWORK SUPPORT SPECIALIST Ordered by an unspecified provider. Other Clinical Staff OTHER Final Resul t * SCAN-CARDIAC STRIP (03/15/2024 12:00 AM NETWORK SUPPORT SPECIALIST) Narrative 03/15/2024 12:00 AM NETWORK SUPPORT SPECIALIST Ordered by an unspecified provider. us Other Clinical Staff OTHER Final Resul t * CT ABDOMEN PELVIS WO (01/16/2024 4:53 AM NETWORK SUPPORT SPECIALIST) Anatomical Region Laterality Modality Abdomen, Pelvis, AORTA, LIVER, SPLEEN Computed Tomography 01/16/2024 4:53 AM NETWORK SUPPORT SPECIALIST Impressions 01/16/2024 5:21 AM NETWORK SUPPORT SPECIALIST 1. No obstructing ureteral or bladder calculi. [...] fat-containing umbilical hernia. Narrative 01/16/2024 5:21 AM NETWORK SUPPORT SPECIALIST For Patients: As a result of the Cures Act, medical imaging exams and procedure reports are released immediately into your electronic medical record. You may view this report before your referring provider. If you have questions, please contact your health care provider. EXAM: CT ABDOMEN PELVIS WO LOCATION: [facility] DATE: 01/16/2024 INDICATION: Abdominal pain, acute, [...] provider. EXAM: CT ABDOMEN PELVIS WO LOCATION: [facility] DATE: 01/16/2024 INDICATION: Abdominal pain, acute, [...] 105 <=200 mg/dL 11/20/2023 3:06 PM CDT [facility] TRIGLYCERIDES 103 <150 mg/dL 11/20/2023 3:06 PM CDT [facility] HDL CHOLESTEROL 33(L) >40 mg/dL 3:06 PM CDT [facility] CHOL/HDL RATIO 3.18 <=4.00 11/20/2023 3:06 PM CDT [facility] LDL CHOLESTEROL 51 <=130 mg/dL 11/20/2023 3:06 PM CDT [facility] PATIENT STATUS NON-FASTI NG 11/20/2023 3:06 PM CDT [facility] Blood BLOOD SPECIMEN / Unknown Venipuncture / Unknown 11/20/2023 1:57 PM CDT 11/20/2023 2:09 PM CDT us Shana Lozano DO CHEMISTRY Final Result [facility] [address] [place] [address], * CT CHEST SCREENING LOW DOSE WO [...] DOSE LUNG CANCER SCREENING CT CHEST LOCATION: Located Within [facility] DATE: 08/07/2023 INDICATION: Lung cancer [...] DOSE LUNG CANCER SCREENING CT CHEST LOCATION: Located Within [facility] DATE: 08/07/2023 INDICATION: Lung cancer [...] screening with low-dose CTchest in 12 months. [employer] Trang Lozano DO CT Final Result * ANTI HCV (06/11/2022 2:16 PM CDT) [facility] HEPATITIS C ANTIBODY Non-Reacti ve Non-React lisa 06/11/2022 4:14 PM CDT [facility] Comment:Antibodies to HCV no t detected; does not exclude the possibility of exposure to HCV. Blood BLOOD SPECIMEN / Unknown Venipuncture / Unknown 06/11/2022 2:16 PM CDT 06/11/2022 2:17 PM CDT Calabrio Skarda DO SEND OUTS Final Result [facility] [address] [place] [address], * HM COLONOSCOPY (08/14/2011) COLONOSCOPY Done [facility] 08/14/2011 us Doctor Unknown HEALTH MAINT RESULTS Final Resul t [facility] [address] [place] [address], [place] [phone] from Last 3 Months or Most Recently Relevant to Health Maintenance Insurance [facility] DUAL COMPLETE MEDICARE PART A HB ONLY [facility] MR MEDICARE PART B HB ONLY APT [id number] [facility] [place] [id number] [facility] Advance Directives Documents on File Type Date Recorded Patient Shipper/Receiver Expl anation Healthcare Directive 04/20/2024 5:43 AM [...] Code Status Discussion: Reviewed Preferences Care Teams Sports Nutritionist Relationship Specialty Start Date End Date Sadi Paul MD [address] [place] [address] PCP - General Family Practice 05/13/24 [facility] [place] [address] [address] 04/21/24 [facility] [place] [address] [place] [address] 05/25/24
[2024-06-09 03:49] LABS: Albumin* 4.2 g/dL (3.3-5.0); Chloride* 99 mmol/L (96-114); Potassium* 3.6 mmol/L (3.6-5.1); Sodium* 138 mmol/L (135-149)
[2024-06-09 03:51] LABS: Blood Urea Nitrogen* 58 mg/dL (7-30); Creatinine* 2.6 mg/dL (0.5-1.5); Est. Creatinine Clearance* 24.85; Estimated Glomerular Filt Rate 25 ml/min
[2024-06-09 03:52] LABS: Alanine Aminotransferase* 29 U/L (4-50); Alkaline Phosphatase* 103 U/L (40-150); Anion Gap 15 mEq/L (7-15); Aspartate Amino Transferase* 31 U/L (12-35); Bilirubin Total* 1.8 mg/dL (0.1-1.5); Calcium* 8.8 mg/dL (8.4-10.6); Carbon Dioxide* 24 mmol/L (20-32); Glucose* 125 mg/dL (60-115); Lipase* 68 U/L (23-300); Total Protein* 6.4 g/dL (6.0-8.3)
[2024-06-09 03:53] LABS: Magnesium* 2.4 mg/dL (1.5-2.6)
[2024-06-09 03:56] LABS: C Reactive Protein* < 0.5 mg/dL (0.5-1.0)
[2024-06-09 03:58] LABS: INR 2.36 (0.91-1.10)
[2024-06-09] MEDS: 0.9 % SODIUM CHLORIDE 1000 ml 500 ML 75 ML IV (05:57)
--- NOTE | 2024-06-09 06:03 | W.PM.THH&P_ITS ---
Telehealth- H&P: HPI History of Present Illness Date Seen: 06/09/24 Chief complaint: Light headedness Narrative: Casey Bull is seen as an Interactive Telehealth visit. Casey Bull is a 73-year-old male with a past medical history significant for end-stage heart disease, HFrEF, CKD stage III, severe MR, A-fib, COPD who presents to hospital with weakness and nausea. When he presented to the ER he had a constellation of symptoms but essentially was complaining of weakness. During the workup, he was found to have worsening kidney function with a creatinine of 2.6, mildly elevated lactic acid, elevated bilirubin, patient underwent CT scan of the abdomen which showed new onset ascites perihepatic perisplenic, bilateral effusions. He was noted to be normotensive. After discussion with the patient's and patient's family, and the ER provider, they had come to the conclusion that this appeared to be this patient's heart progressively failing. His constellation of symptoms of kidney failure, progressive liver failure, cardiac cachexia and dizziness is likely in the setting of end-stage heart disease despite being on a dobutamine drip. The plan was patient to get some fluids and see how he does. If he does not do better, they would be willing to transition to hospice. Review of Systems Status of ROS: Reports: 10 or more systems reviewed and unremarkable except as noted in History and below Const: Reports: fatigue and malaise ENMT: Denies: difficulty swallowing GI: Reports: nausea and bloating; Denies: belching, excessive passing of gas, difficulty swallowing, painful bowel movements, rectal pain or rectal swelling Neuro: Reports: dizziness Psych: Denies: anxiety Endo: Reports: fatigue; Denies: excessive urination Tawanda/Lymph: Denies: easy bruising [facility] Medical History Hyperlipidemia ?E78.5 - Hyperlipidemia, unspecified (ICD-10) History of tobacco use ?Z87.891 - Personal history of nicotine dependence (ICD-10) History of atrial fibrillation ?Z86.79 - Personal history of other diseases of the circulatory system (ICD- 10) Gout ?M10.9 - Gout, unspecified (ICD-10) Severe mitral regurgitation by prior echocardiogram ?I34.0 - Nonrheumatic mitral (valve) insufficiency (ICD-10) Chronic heart failure with reduced ejection fraction (HFrEF, <= 40%) ?I50.22 - Chronic systolic (congestive) heart failure (ICD-10) Ischemic cardiomyopathy (12/07/20) ?I25.5 - Ischemic cardiomyopathy (ICD-10) Chronic kidney disease, stage 3b (06/19/23) ?N18.32 - Chronic kidney disease, stage 3b (ICD-10) Cardiogenic shock (04/07/24) ?R57.0 - Cardiogenic shock (ICD-10) Atrial fibrillation with rapid ventricular response (04/07/24) ?I48.91 - Unspecified atrial fibrillation (ICD-10) Acute on chronic systolic and diastolic heart failure, NYHA class 3 (04/07/24) ?I50.43 - Acute on chronic combined systolic (congestive) and diastolic (congestive) heart failure (ICD-10) Acute GI bleeding (04/07/24) ?K92.2 - Gastrointestinal hemorrhage, unspecified (ICD-10) Surgical History Status post appendectomy ?Z90.49 - Acquired absence of other specified parts of digestive tract (ICD- 10) Status post lumbar laminectomy ?Z98.890 - Other specified postprocedural states (ICD-10) Status post coronary artery stent placement ?Z95.5 - Presence of coronary angioplasty implant and graft (ICD-10) Family History Mother Breast cancer Father Colon cancer Social History Narrative: . Single. 2 children. Now lives with daughter and grandson. Recently moved from [place], where he was living alone, independently. Retired. Designates daughter, Chan, as medical decision maker if he is not able to speak on his own behalf, . DNR DNI resuscitation status. Follows with [facility]. Considering the possibility of hospice services. Former smoker. Does not drink alcohol. What is your current living situation?: I presently have a place to live Problems where you live: no known problems Problems where you live details: N/A In the past 12 months, utilities in danger of being shut off: no In past 12 months, lack of transportation kept you from medical appts, meetings, work, or getting things needed for daily living: no In the past 12 mos, have been you worried that your food would run out before you had money to buy more?: never true In the past 12 mos, the food you bought just didn't last and you didn't have money to buy more?: never true Highest level of school completed/degree received: Associate degree: occupational, technical, vocational program Smoking Status: Never smoker Do you use any of these nicotine containing products: None Second hand tobacco smoke exposure: No How often do you have a drink containing alcohol: never How often do you have six or more drinks on one occasion: Never AUDIT-C Alcohol total score: 0 Non-prescribed substance use: denies use Caffeine: No How often does anyone, including family, friends and others, physically hurt you : never How often does anyone, including family, friends and others, insult or talk down to you: never How often does anyone, including family, friends and others, threaten you with harm: never How often does anyone, including family, friends and others, scream or curse at you: never service: No Meds Home Medications and Allergies Home Medications ?Medication ?Instructions ?Recorded ?Confirmed ?Type acetaminophen 500 mg tablet 1,000 mg PO HS 05/17/24 06/09/24 History albuterol sulfate 90 mcg/actuation 2 puff inhalation Q6H PRN 05/17/24 06/09/24 History aerosol inhaler amiodarone 200 mg tablet 200 mg PO DAILY 05/17/24 06/09/24 History dobutamine See Rx Instructions .Route .COMPLEX 05/17/24 06/09/24 History pramipexole 0.25 mg tablet 0.125 mg PO HS 05/17/24 06/09/24 History torsemide 20 mg tablet 20 mg PO DAILY PRN 05/17/24 06/09/24 History dobutamine 250 mg/250 mL (1 mg/mL) ml continuous IV infusion 06/08/24 06/08/24 History in 5 % dextrose intravenous Allergies Allergy/AdvReac Type Severity Reaction Status Date / Time codeine Allergy Severe dizzniness/ Verified 06/09/24 03:02 nausea Exam Narrative Exam Narrative: Physical Exam GENERAL: ?vital signs reviewed, well developed and nourished, in no distress. hard of hearing HEENT: pupils are equal round and reactive to light, extraocular movements are grossly within normal limits and oral mucosa is moist. NECK: Supple without lymphadenopathy + JVD HEART: Regular rate and rhythm without any rubs, murmurs, or gallops. LUNGS: Clear to auscultation bilaterally with good air movement throughout ABDOMEN: Observation from nurse assisted exam, distended EXTREMITIES: Strength and sensation is observed to be grossly within normal limits in the upper and lower extremities.? No focal strength deficit is observed. CAD pump attached SKIN:? Observed warm and dry with color normal Const Vital Signs, click to edit/add: Vital Signs - 24 hr 06/09/24 02:56 06/09/24 03:29 06/09/24 03:31 Temperature 97.9 F Pulse Rate 83 Pulse Rate [Pulse Oximeter] 76 Respiratory Rate 18 16 Blood Pressure 116/79 Blood Pressure [Left Arm] Blood Pressure [Right Upper Arm] 104/75 Pulse Oximetry 98 97 Oxygen Delivery Method Room Air 06/09/24 03:31 06/09/24 03:32 06/09/24 03:45 Temperature Pulse Rate 83 87 84 Pulse Rate [Pulse Oximeter] Respiratory Rate 19 13 26 H Blood Pressure 116/82 Blood Pressure [Left Arm] Blood Pressure [Right Upper Arm] Pulse Oximetry 98 99 98 Oxygen Delivery Method 06/09/24 04:00 06/09/24 04:01 06/09/24 04:31 Temperature Pulse Rate 86 85 87 Pulse Rate [Pulse Oximeter] Respiratory Rate 11 L 12 14 Blood Pressure 119/85 116/88 Blood Pressure [Left Arm] Blood Pressure [Right Upper Arm] Pulse Oximetry 95 97 98 Oxygen Delivery Method 06/09/24 04:54 Temperature 97.6 F Pulse Rate Pulse Rate [Pulse Oximeter] 85 Respiratory Rate 16 Blood Pressure Blood Pressure [Left Arm] 108/78 Blood Pressure [Right Upper Arm] Pulse Oximetry 96 Oxygen Delivery Method Room Air Common normals: no apparent distress and oriented x3 Neuro Common normals: oriented x3 Hospitalist - H&P: Result Labs Labs: Short CBC 06/09/24 Range/Units 03:10 WBC 8.05 (4.50-11.00) K/uL Hgb 12.3 L (13.5-17.5) gm/dL Hct 40.1 (37.0-53.0) % Plt Count 192 (140-440) K/uL BMP 06/09/24 03:10 Sodium 138 Potassium 3.6 Chloride 99 Carbon Dioxide 24 BUN 58 H Creatinine 2.6 H Glucose 125 H Calcium 8.8 Liver Function 06/09/24 Range/Units 03:10 Total Bilirubin 1.8 H (0.1-1.5) mg/dL AST 31 (12-35) U/L ALT 29 (4-50) U/L Alkaline Phosphatase 103 (40-150) U/L Albumin 4.2 (3.3-5.0) g/dL Assessment and Plan Assessment and plan (1) Weakness: Status: Acute (2) Acute nausea with nonbilious vomiting: Status: Acute (3) Acute dehydration: Status: Acute (4) Chronic heart failure with reduced ejection fraction (HFrEF, <= 40%): Problem comment: - EF <20% - Stage D FHF, inotrope dependent - dobutamine at 2mcg/kg/min home infusion - hospice appropriate; home consultation arranged for 05/19/24 Status: Acute (5) ASCVD (arteriosclerotic cardiovascular disease): Problem comment: Status post [place] and stents 2022 - chronic dobutamine IV infusion 2 mcg/kg/min - not currently on scheduled loop diuretic - torsemide 20 mg as needed for weight gain - midodrine 2.5 mg po tid - deemed to not be a candidate for LVAD - due to cognitive issues and lack of social support - palliative care following. [employer] supports ongoing talks for home hospice as outpatient. Status: Acute (6) Severe mitral regurgitation by prior echocardiogram: Status: Acute (7) Chronic kidney disease, stage 3b: Status: Acute (8) Hyperlipidemia: Status: Acute (9) Atrial fibrillation with rapid ventricular response: Problem comment: - warfarin anticoagulation, INR goal 2-3 - DC ASA while on warfarin - amiodarone 200 mg once daily since 05/01/2024 Status: Acute (10) Diabetes type 2: Status: Acute (11) COPD (chronic obstructive pulmonary disease): Status: Acute Plan This patient is being admitted to the hospital for observation. Overall it appears that this patient has progressive end-stage heart disease. The fact that his kidneys are failing, has lactic acidosis, dizziness and weakness, cardiac cachexia as well as progressive liver injury is suggestive of a worsening cardiac index. Despite being on dobutamine. My suspicion is that this patient is experiencing symptoms of progressive heart decline. The patient is a DNR and DNI and family has entertain the possibility of hospice in the past. Hospice would involve shutting off the dobutamine which would likely result in a life span of only days to week. At this time we will continue a little bit of IV fluids but stop it at 500 cc. I will hold his diuretics today. I will continue the rest of his medications. I have requested social work to assist in conversation with hospice. Telehealth Visit: Todays History and Physical is via interactive telehealth by Dr Bradley Faulkner MD The Patient is located [facility]: Physician is located at [facility]. Nursing staff assisted in the patient's exam. The visit being done today meets criteria for a telehealth visit and the patient or patient's parent/guardian is aware the visit is a telehealth visit. Camera Start time 530 Camera End time 600 Telehealth: Statement Statement Telehealth Visit: Today's History and Physical is provided via interactive telehealth by Bradley Faulkner MD.? Patient is located at [facility].? Provider is located at [facility].? Nursing staff assisted with the patient's exam. The visit being done today meets criteria for a telehealth visit and the patient or patient?s parent/guardian is aware the visit is a telehealth visit.
[2024-06-09] MEDS: PRAMIPEXOLE 0.125 MG TABLET PO ×2 (07:34→18:37)
--- NOTE | 2024-06-09 07:48 | PC.NURSE ---
Pt admitted to med/surg at approximately 0445 by stretcher from ED. Pt noted to be alert & oriented to person, place and time though is noted to have intermittent confusion regarding current state of health as he told Jordan FREITAS he is on hospice at a facility. Scheduled Mirapex given for c/o RLS. Pt afebrile and on RA with no N/V noted upon admission to med/surg. NS running per order. Bed alarm on and call light within reach. Pt has single lumen PICC to RUE due to medication infusion per order. Scattered bruising noted to all four extremities as pt has hx of falls at home per documentation and has been on Warfarin. Pt continent of bladder using urinal.
[2024-06-09] MEDS: OMEPRAZOLE 20 MG CAPSULE DR 40 MG PO ×2 (09:09→22:14)
[2024-06-09] MEDS: ATORVASTATIN CALCIUM 40 MG TABLET PO (09:09)
[2024-06-09] MEDS: AMIODARONE 200 MG TABLET PO (09:09)
[2024-06-09] MEDS: MIDODRINE HCL 5 MG TABLET PO ×3 (09:09→22:14)
[2024-06-09] MEDS: SODIUM CHLORIDE 0.9 % (FLUSH) 10 ML SYRINGE 5 ML IVF ×3 (11:14→22:14)
[2024-06-09] MEDS: POTASSIUM CHLORIDE 10 MEQ CAPSULE ER 20 MEQ PO (11:14)
[2024-06-09] MEDS: FUROSEMIDE 10 MG/ML inj 20 MG IVP ×2 (11:14→16:34)
--- NOTE | 2024-06-09 14:33 | P.IMPN_ITS ---
Assessment and Plan Assessment and plan (1) Chronic heart failure with reduced ejection fraction (HFrEF, <= 40%): Problem comment: - EF <20% - Stage D FHF, inotrope dependent. Hypotensive on midodrine. - dobutamine at 2mcg/kg/min home infusion - hospice appropriate; has had hospice consultation at home but not currently enrolled Patient is currently not seeking hospice/palliative care. Will give a trial of diuretic to see if we can improve his congestion. At high risk for hypotension with diuresis. Prognosis is very poor. Status: Acute (2) Chronic kidney disease, stage 4 (severe): Problem comment: Creatinine increased from 2.2-2.6 in the past month. Creatinine clearance now 25. Status: Acute (3) Weakness: Problem comment: Primarily due to end-stage heart disease Status: Acute (4) Acute nausea with nonbilious vomiting: Problem comment: Probably due to end-stage heart disease though could have biliary disease. He is not a good candidate for surgery. Status: Acute (5) Biliary sludge: Problem comment: Not a good candidate for surgery Status: Acute (6) ASCVD (arteriosclerotic cardiovascular disease): Problem comment: Status post [place] and stents x2, 2022 - chronic dobutamine IV infusion 2 mcg/kg/min - not currently on scheduled loop diuretic - torsemide 20 mg as needed for weight gain - midodrine 2.5 mg po tid - deemed to not be a candidate for LVAD - due to cognitive issues and lack of so cial support - palliative care following. [employer] supports ongoing talks for home hospice as outpatient. Status: Acute Plan Continue in hospital for management of end-stage heart disease. Evaluate for functional status with PT and OT. Monitor heart and vital signs closely for complications of end-stage heart disease and therapy. Total Time Spent Total Time Spent: Total time spent today is 50 minutes in coordination of care discussing with patient and other providers Subjective Date Seen: 06/09/24 Interval history: Admission HPI: Casey Bull is seen as an Interactive Telehealth visit. Casey Bull is a 73-year-old male with a past medical history significant for end-stage heart disease, HFrEF, CKD stage III, severe MR, A-fib, COPD who presents to hospital with weakness and nausea. When he presented to the ER he had a constellation of symptoms but essentially was complaining of weakness. During the workup, he was found to have worsening kidney function with a creatinine of 2.6, mildly elevated lactic acid, elevated bilirubin, patient underwent CT scan of the abdomen which showed new onset ascites perihepatic per isplenic, bilateral effusions. He was noted to be normotensive. After discussion with the patient's and patient's family, and the ER provider, they had come to the conclusion that this appeared to be this patient's heart progressively failing. His constellation of symptoms of kidney failure, progressive liver failure, cardiac cachexia and dizziness is likely in the setting of end-stage heart disease despite being on a dobutamine drip. The plan was patient to get some fluids and see how he does. If he does not do better, they would be willing to transition to hospice. 06/09/2024: Progress visit. Patient is seen by himself. He was unable to give much detail of his medical history and did not know his medications. He reports feeling the same as he did when he came in. Still having weakness, fatigue, nausea. Imaging on admission suggested he has symptoms of right heart failure with ascites and edema and pleural effusions. He is not having shortness of breath and does not appear to have overt pulmonary edema. He reports tolerating very little activity and refused therapy today because of this. He is eating very little because he has nausea and anorexia. I asked him about previous discussion with hospice that he has had as an outpatient in the last month. He really did not have much information to tell me about what they discussed or what hospice was about. He is not really interested in pursuing hospice he tells me. He does wants me to help him feel better. Exam Narrative: Exam Narrative: He is alert and appears in no distress. Speech is normal. He is oriented to his circumstances but unable to give significant recent past medical history in cluding recent medical appointments and medications and diagnoses. Eyes normal. Oropharynx normal. Neck is supple without mass or adenopathy. Respirations are clear to auscultation with a rare basilar crackle. Cardiovascular: S1, S2, regular rate and rhythm. Abdomen: Bowel sounds active. Abdomen is soft without tenderness or mass. Const: Vital Signs, click to edit/add: Vital Signs - 24 hr 06/09/24 02:56 06/09/24 03:29 06/09/24 03:31 Temperature 97.9 F Pulse Rate 83 Pulse Rate [Pulse Oximeter] 76 Respiratory Rate 18 16 Blood Pressure 116/79 Blood Pressure [Le ft Arm] Blood Pressure [Ri ght Upper Arm] 104/75 Pulse Oximetry 98 97 [facility] 06/09/24 03:31 06/09/24 03:32 06/09/24 03:45 Temperature Pulse Rate 83 87 84 Pulse Rate [Pulse Oximeter] Respiratory Rate 19 13 26 H Blood Pressure 116/82 Blood Pressure [Le ft Arm] Blood Pressure [Ri ght Upper Arm] Pulse Oximetry 98 99 98 [facility] 06/09/24 04:00 06/09/24 04:01 06/09/24 04:31 Temperature Pulse Rate 86 85 87 Pulse Rate [Pulse Oximeter] Respiratory Rate 11 L 12 14 Blood Pressure 119/85 116/88 Blood Pressure [Le ft Arm] Blood Pressure [Ri ght Upper Arm] Pulse Oximetry 95 97 98 [facility] 06/09/24 04:54 06/09/24 04:54 06/09/24 08:08 Temperature 97.6 F 96.4 F L Pulse Rate Pulse Rate [Pulse Oximeter] 85 75 Respiratory Rate 16 16 18 Blood Pressure Blood Pressure [Le ft Arm] 108/78 105/75 Blood Pressure [Ri ght Upper Arm] Pulse Oximetry 96 96 99 [facility] Room Air Room Air 06/09/24 11:28 Temperature 97.1 F L Pulse Rate Pulse Rate [Pulse Oximeter] 76 Respiratory Rate 16 Blood Pressure Blood Pressure [Le ft Arm] 96/72 Blood Pressure [Ri ght Upper Arm] Pulse Oximetry 97 [facility] Documenting provider has reviewed patient's vital signs: yes Labs Labs: Laboratory Results - last 24 hr 06/09/24 06/09/24 03:10 03:30 WBC 8.05 RBC 4.64 Hgb 12.3 L Hct 40.1 MCV 86 MCH 27 MCHC 31 L RDW Coeff of Dia 20.7 H Plt Count 192 Neut % (Auto) 86.7 H Lymph % (Auto) 5.8 L [place] % (Auto) 7.0 Eos % (Auto) 0.0 Baso % (Auto) 0.1 Neut # (Auto) 7.00 Lymph # (Auto) 0.50 L [place] # (Auto) 0.60 Eos # (Auto) 0.00 Baso # (Auto) 0.01 Abs Immat Gran (auto) 0.03 Imm/Tot Granulo (auto) 0.4 INR 2.36 H Sodium 138 Potassium 3.6 Chloride 99 Carbon Dioxide 24 Anion Gap 15 BUN 58 H Creatinine 2.6 H Estimated Creat Clear 24.85 Estimated GFR 25 Glucose 125 H Lactate 2.2 H Calcium 8.8 Magnesium 2.4 Total Bilirubin 1.8 H AST 31 ALT 29 Alkaline Phosphatase 103 C-Reactive Protein < 0.5 L Total Protein 6.4 Albumin 4.2 Lipase 68
[2024-06-09] MEDS: WARFARIN 2 MG TABLET 1 MG PO (16:35)
[2024-06-09] MEDS: POTASSIUM CHLORIDE 10 MEQ CAPSULE ER PO (17:47)
[2024-06-09] MEDS: ACETAMINOPHEN 500 MG TABLET 1000 MG PO (22:14)
[2024-06-09] MEDS: ONDANSETRON 2 MG/ML inj 4 MG IVP (23:01)
[2024-06-10 03:00] VITALS: RESP 16
[2024-06-10] MEDS: ONDANSETRON 2 MG/ML inj 4 MG IVP ×3 (03:48→16:00)
[2024-06-10 07:00] VITALS: BP 103/76; PULSE 69; RESP 16; TEMP 36.4; O2SAT 97
[2024-06-10 07:15] LABS: Chloride* 101 mmol/L (96-114); Potassium* 3.4 mmol/L (3.6-5.1); Sodium* 137 mmol/L (135-149)
[2024-06-10 07:18] LABS: Anion Gap 12 mEq/L (7-15); Blood Urea Nitrogen* 56 mg/dL (7-30); Carbon Dioxide* 24 mmol/L (20-32); Creatinine* 2.3 mg/dL (0.5-1.5); Est. Creatinine Clearance* 28.09; Estimated Glomerular Filt Rate 29 ml/min
[2024-06-10 07:19] LABS: Calcium* 8.3 mg/dL (8.4-10.6); Glucose* 129 mg/dL (60-115)
[2024-06-10 07:20] LABS: INR 2.78 (0.91-1.10); Prothrombin Time 30.5 Seconds
--- NOTE | 2024-06-10 07:21 | PC.NURSE ---
Addendum entered by Desiree Tipton RN 06/10/24 08:13: Picc line pump managed by pt and pt family. IV replaced into left forearm. Original Note: Pt alert, oriented and vitally stable. Pt had episode of emesis around 2200, prn Zofran given, pt stated improvement. Pt had nausea again around 0400, Zofran given again, pt stated some improvement. Upon questioning pt stated these episodes occur at home as well, he feels as if he is spinning. Low stimulus environment provided. Pt up via SBA. Pt in bed, appears to be resting, call light within reach.?
[2024-06-10] MEDS: AMIODARONE 200 MG TABLET PO (08:50)
[2024-06-10] MEDS: ATORVASTATIN CALCIUM 40 MG TABLET PO (08:50)
[2024-06-10] MEDS: MIDODRINE HCL 5 MG TABLET PO ×2 (08:50→14:29)
[2024-06-10] MEDS: POTASSIUM CHLORIDE 10 MEQ CAPSULE ER PO (08:50)
[2024-06-10] MEDS: OMEPRAZOLE 20 MG CAPSULE DR 40 MG PO (08:50)
[2024-06-10] MEDS: FUROSEMIDE 10 MG/ML inj 20 MG IVP ×2 (08:51→16:00)
[2024-06-10] MEDS: SODIUM CHLORIDE 0.9 % (FLUSH) 10 ML SYRINGE 5 ML IVF (08:51)
[2024-06-10 09:57] VITALS: PULSE 65
[2024-06-10 11:00] VITALS: BP 104/71; PULSE 69; RESP 16; TEMP 36.8; O2SAT 96
--- NOTE | 2024-06-10 11:25 | PM.DS1 ---
DS: Providers Provider Date Seen: 06/10/24 Date of admission: 06/09/24 09:37 Primary care physician: Sadi Paul MD Admitting Clinician: Bradley Faulkner MD Attending Physician on discharge: Christian Samano MD Date of Discharge: 06/10/24 DS: Diagnosis Discharge Diagnosis (1) Chronic heart failure with reduced ejection fraction (HFrEF, <= 40%): Status: Acute Problem details: - EF <20% - Stage D FHF, inotrope dependent. Hypotensive on midodrine. - dobutamine at 2mcg/kg/min home infusion On admission patient was treated for possible dehydration. Due to findings of worsening pleural effusions, ascites and body wall edema on admission it was felt he possibly did have symptomatic heart failure. He was requesting ongoing medical management. He was treated with IV furosemide without significant improvement in his symptoms. His blood pressure did tolerate diuresis however (2) Chronic kidney disease, stage 4 (severe): Status: Acute Problem details: Creatinine increased from 2.2-2.6 in the past month. Creatinine clearance now 25. (3) Weakness: Status: Acute Problem details: Primarily due to end-stage heart disease (4) Acute nausea with nonbilious vomiting: Status: Acute Problem details: Probably due to end-stage heart disease though could have biliary disease. He is not a good candidate for surgery. (5) Biliary sludge: Status: Acute Problem details: Not a good candidate for surgery (6) ASCVD (arteriosclerotic cardiovascular disease): Status: Acute Problem details: Status post NV and stents 2022 - chronic dobutamine IV infusion 2 mcg/kg/min - not currently on scheduled loop diuretic - torsemide 20 mg as needed for weight gain - midodrine 2.5 mg po tid - deemed to not be a candidate for LVAD - due to cognitive issues and lack of social support - palliative care following. Government Affairs Fellow supports ongoing talks for home hospice as outpatient. (7) Palliative care encounter: Status: Acute Problem details: I discussed with the patient and his daughter his current health status. Attempts to give him some symptomatic improvement with his profound fatigue and weakness, exercise intolerance and nausea have been unsuccessful. We discussed hospice. He does not understand hospice despite previous consultation and my conversation with him yesterday. His daughter understands and after explanation today they both agree to proceed with hospice at home. (8) Cognitive impairment: Status: Acute Problem details: Patient has not had formal assessment. Clinically he is not fully understanding and retaining information about his disease and prognosis and treatment. DS: Summary Hospital Course Hospital Course: Admission HPI: Casey Bull is seen as an Interactive Telehealth visit. Casey Bull is a 73-year-old male with a past medical history significant for end-stage heart disease, HFrEF, CKD stage III, severe MR, A-fib, COPD who presents to hospital with weakness and nausea. When he presented to the ER he had a constellation of symptoms but essentially was complaining of weakness. During the workup, he was found to have worsening kidney function with a creatinine of 2.6, mildly elevated lactic acid, elevated bilirubin, patient underwent CT scan of the abdomen which showed new onset ascites perihepatic perisplenic, bilateral effusions. He was noted to be normotensive. After discussion with the patient's and patient's family, and the ER provider, they had come to the conclusion that this appeared to be this patient's heart progressively failing. His constellation of symptoms of kidney failure, progressive liver failure, cardiac cachexia and dizziness is likely in the setting of end-stage heart disease despite being on a dobutamine drip. The plan was patient to get some fluids and see how he does. If he does not do better, they would be willing to transition to hospice. 06/09/2024: Progress visit. Patient is seen by himself. He was unable to give much detail of his medical history and did not know his medications. He reports feeling the same as he did when he came in. Still having weakness, fatigue, nausea. Imaging on admission suggested he has symptoms of right heart failure with ascites and edema and pleural effusions. He is not having shortness of breath and does not appear to have overt pulmonary edema. He reports tolerating very little activity and refused therapy today because of this. He is eating very little because he has nausea and anorexia. I asked him about previous discussion with hospice that he has had as an outpatient in the last month. He really did not have much information to tell me about what they discussed or what hospice was about. He is not really interested in pursuing hospice he tells me. He does wants me to help him feel better. 06/10/2024: Patient is seen today with his daughter. He does not remember our conversation yesterday about palliative care and his severe heart disease and kidney disease. He does understand that he has severe heart disease. He does not feel like he is clinically improved with initial attempts to address dehydration or subsequent attempts to provide diuresis for his heart failure. He still has nausea with minimal vomiting. He still has poor appetite. Yesterday he refuse therapy because of fatigue. Today he says he is too tired to get out of bed. He has not been hypoxic. Status at Discharge Overall status at discharge: patient is progressing back to baseline Time Spent with Patient Time attestation: Total time spent providing and/or coordinating discharge services: 45 minutes Time spent: Greater than 30 minutes Exam Narrative: Exam Narrative: He is alert and appears in no distress. He does not remember significant portions of our conversation from yesterday. Respirations are unlabored and clear to auscultation. Cardiovascular: S1, S2, regular rate and rhythm. Abdomen is soft without tenderness or mass. No extremity edema. Const: Vital Signs, click to edit/add: Vital Signs - 24 hr 06/09/24 11:28 06/09/24 16:32 06/09/24 19:00 Temperature 97.1 F L 96.1 F L 98.2 F Pulse Rate Pulse Rate [Pulse Oximeter] 76 67 68 Respiratory Rate 16 18 18 Blood Pressure [Le ft Arm] 96/72 100/71 98/67 Pulse Oximetry 97 99 97 Oxygen Delivery Me thod Room Air Room Air 06/09/24 23:00 06/09/24 23:00 06/10/24 03:00 Temperature 98.2 F Pulse Rate Pulse Rate [Pulse Oximeter] 98 98 Respiratory Rate 16 16 16 Blood Pressure [Le ft Arm] 92/67 Pulse Oximetry 98 Oxygen Delivery Me thod Room Air 06/10/24 07:00 06/10/24 09:57 Temperature 97.6 F Pulse Rate 65 Pulse Rate [Pulse Oximeter] 69 Respiratory Rate 16 Blood Pressure [Le ft Arm] 103/76 Pulse Oximetry 97 Oxygen Delivery Nm thod Room Air Documenting provider has reviewed patient's vital signs: yes DS: Data Data Completed and Pending Labs on day of discharge: Labs from last 24 hours 06/10/24 06:07 INR 2.78 H Sodium 137 Potassium 3.4 L Chloride 101 Carbon Dioxide 24 Anion Gap 12 BUN 56 H Creatinine 2.3 H Estimated Creat Clear 28.09 Estimated GFR 29 Glucose 129 H Calcium 8.3 L Discharge Plan Discharge Disposition: Xfer Home- (Hospice) Date of Admission: 06/09/24 09:37 Attending Provider on Discharge: Christian Samano Primary Care Provider: Sadi Paul Condition: Guarded Discharge Medications: New ondansetron 4 mg tablet,disintegrating 4 mg PO Q8H PRN (Reason: nausea and vomiting) Qty: 20 0RF Continued ondansetron 4 mg tablet,disintegrating 4 mg PO Q6H PRN (Reason: nausea and vomiting) Qty: 60 2RF albuterol sulfate 90 mcg/actuation HFA aerosol inhaler 2 puff INHALATION Q6H PRN acetaminophen 500 mg tablet 1,000 mg PO HS Rx Instructions: Take 1,000 mg by mouth once daily in the evening. Max acetaminophen dose: 4000mg in 24 hrs. amiodarone 200 mg tablet 200 mg PO DAILY torsemide 20 mg tablet 20 mg PO DAILY PRN Rx Instructions: Take one tablet by mouth as needed for weight gain of 3 lb in 1 day or 5 lb in 1 week pramipexole 0.25 mg tablet 0.125 mg PO HS dobutamine 4 mg/mL See Rx Instructions .ROUTE .COMPLEX Rx Instructions: 2 MCG/KG/MIN (79.5 KG), 9.6 MG/HR, 2.4 ML/HR VIA CADD PUMP midodrine 2.5 mg tablet 2.5 mg PO TID Qty: 90 0RF warfarin 1 mg tablet 1 mg PO DAILY Qty: 90 0RF Protocol: Dose Management Condition: Friday Dose/Route: 1 mg Instruction: 1 x 1 mg tablet Condition: Friday Dose/Route: 0 mg Instruction: 0 tablets Condition: Friday Dose/Route: 1 mg Instruction: 1 x 1 mg tablet Condition: Friday Dose/Route: 1 mg Instruction: 1 x 1 mg tablet Condition: Dose/Route: 0 mg Instruction: 0 tablets Condition: Friday Dose/Route: 1 mg Instruction: 1 x 1 mg tablet Condition: Friday Dose/Route: 1 mg Instruction: 1 x 1 mg tablet Protocol Text: Adjustment Start Date: Friday06/07/24 INR Value: 2.57 INR Date: 05/22/24 Recheck Date: 06/28/24 Rx Instructions: Take 1 mg on Friday, Friday, Friday, Friday, Friday every week atorvastatin 40 mg tablet 40 mg PO DAILY Qty: 90 3RF pantoprazole 40 mg tablet,delayed release (DR/EC) 40 mg PO BID Qty: 60 11RF Discharge Orders: Discharge Order (Routine); Ordered 06/10/24 Ordered By: Christian Samano Additional Instructions: Discharge to home with admission to hospice. Activity Level: Activity as Tolerated and Use Walker Discharge Diet: Regular Follow Up Appointments: Sadi Paul MD [Primary Care Provider] - Forms: [facility] Info Instructions
--- NOTE | 2024-06-10 14:27 | PC.SOCIAL ---
Discharge planning: supervisor fur floor worker met with pt and his daughter, Felecia, to discuss hospice services. The provider on duty had already discussed hospice services with them, as well. Pt's daughter stated that they already had a consult appointment with [facility] a few weeks ago, but were not sure until now that they wanted to pursue hospice. The pt would like to go home on hospice. Pt lives with his daughter, Felecia, and his adult grandson who is 25 and responsible. Pt's daughter, Felecia, works from home and is home most of the time and pt's grandson is home in the evenings after he gets done with work and on the weekends. supervisor fur floor worker spoke to AMELIA Savage from [facility] #[phone], who shared they could do an intake appointment with the pt and his family this evening at 6pm at his home. Pt and his daughter would like to schedule that appointment. AMELIA Savage from [facility] will also work on ordering a hospital bed, bedside commode and bedside table as requested by the pt's daughter, to have delivered to the pt's home within the next 24 hours. supervisor fur floor worker did fax Admit to Hospice discharge orders and the discharge summary to AMELIA Savage at [facility] per her request to fax number #[phone]. Pt's daughter will be going out of town starting early Friday afternoon and will most likely not be back until late Friday evening. Pt's grandson will be able to stay with the pt starting Friday when he gets done with work into Friday until pt's daughter returns home. supervisor fur floor worker discussed this with AMELIA Savage from [facility] who shared that if the pt is alone for a few hours at home on Friday afternoon he could call their triage line to speak to the on-call nurse if he has questions or concerns. Pt is still alert. Pt's grandson is going to ask his employer about getting done early on Friday afternoon, as well. Pt's daughter will pick him up the pt at 4pm to transport home. Social work to follow-up as needed.
[2024-06-10 15:00] VITALS: BP 107/79; PULSE 71; RESP 16; TEMP 36.3; O2SAT 94
--- NOTE | 2024-06-10 15:16 | PC.NURSE ---
End of shift [id number]: Pt AxOx4, pleasant, and cooperative with cares. [employer] Driver assessed Dobutamine drip upon initial introduction. Pt reported mild nausea intermittently throughout the day that was managed with an aromatherapy patch and PRN Zofran. Pt refused meals during the day, health underwriter encouraged snacks, Pt was complaint. Adequate fluid intake. Pt worked with therapies today. Pt is resting in bed watching television with call light in reach. Awaiting discharge after daughter is done with work. ?
--- NOTE | 2024-06-10 18:36 | PC.NURSE ---
Discharge Summary: Patient pleasant and cooperative. PRN Zofran given x1. Patient discharged home at 1630 with all personal belongings accompanied by daughter. Discharge instructions including diagnosis, medications and follow up discussed with patient and voiced understaging. SL to left forearm D/C'd with tip intact.
== END 2024-06-10 16:30 | disposition hospice, home (50) | DRG 392 ==
LOC: ED 04:24 → MEDSURG 04:37
PROVIDERS: Admitting Provider Student in an Organized Health Care Education/Training Program; Emergency Provider Family Medicine; PCP Family Medicine; Visit Provider Family Medicine
DX: R11.2 Nausea with vomiting, unspecified (principal); I50.22 Chronic systolic (congestive) heart failure; R53.1 Weakness; E86.0 Dehydration; I50.84 End stage heart failure; I25.10 Atherosclerotic heart disease of native coronary artery without angina pectoris; Z95.5 Presence of coronary angioplasty implant and graft; K83.8 Other specified diseases of biliary tract; Z51.5 Encounter for palliative care; G31.84 Mild cognitive impairment of uncertain or unknown etiology; E78.5 Hyperlipidemia, unspecified; I34.0 Nonrheumatic mitral (valve) insufficiency; I48.91 Unspecified atrial fibrillation; E11.9 Type 2 diabetes mellitus without complications
CPT/HCPCS: 36415; 73630; 74176; 80048; 80053; 83605; 83690; 83735; 84550; 85025; 85610; 86140; 93005; 94761; 97116; 97161; 97166; 97530; 99284; 99285; A9270; G0378; J1250; J1938; J2405; J7030; J7120; J7512